=== PATIENT | female | born 1995 | race Caucasian/White ===

== ENCOUNTER 2023-10-01 15:54 | Emergency (ER) | payer OTHER, MEDICARE, SELFPAY ==
[2023-10-01 15:58] VITALS: BP 162/100; PULSE 100; RESP 20; TEMP 36.7; O2SAT 99; BMI 45.8
--- NOTE | 2023-10-01 16:14 | ED.GENADUL1 ---
HPI - General Adult General Chief complaint: Ear Stated complaint: pain left side of face Time Seen by Provider: 10/01/23 15:57 Source: patient Mode of arrival: walk-in Limitations: no limitations History of Present Illness HPI narrative: Patient is a 28-year-old female who is wheelchair-bound who presents to the emergency department for the evaluation of left-sided jaw pain for the last several days. Her PCP called in Keflex for her which she started today. They do not have a dentist locally. She denies any specific tooth being painful. She has had no appreciable swelling although she states her jaw is throbbing. She denies any injuries. She states the pain radiates into the left ear. No visual changes. No fevers or upper respiratory symptoms. She does have a history of her jaw clicking sometimes.She presents to the ER for pain control. She denies any concern for . Related Data Previous Rx's Medication Instructions Recorded hydrocodone 5 mg-acetaminophen 325 1 tab PO Q6H PRN pain 2 days #8 10/01/23 mg tablet tabs ketorolac 10 mg tablet 10 mg PO TID PRN pain #10 tabs 10/01/23 Allergies Allergy/AdvReac Type Severity Reaction Status Date / Time cetirizine [From Zyrtec] Allergy Intermediate Hives Verified 10/01/23 16:04 grass pollen Allergy Intermediate Verified 10/01/23 16:16 vancomycin Allergy Mild Verified 10/01/23 16:16 Review of Systems ROS Constitutional Denies: fever or chills Ears, nose, mouth, and throat Denies: throat pain or nasal congestion Cardiovascular Denies: chest pain Respiratory Denies: shortness of breath or cough Gastrointestinal Denies: nausea or vomiting Musculoskeletal Denies: back pain or neck pain Integumentary/Breast Denies: rash Neurological Denies: headache PFSH PFSH Social History Smoking status: Never smoker Exam Narrative Exam Narrative: Gen.: Awake, alert, in no distress Head: Normocephalic, atraumatic ENT: Moist mucous membranes, Bilateral TMs clear, teeth with no significant dental caries, no root exposures or broken teeth. No swelling noted of the face. Diffuse tenderness of the left mandible to the left TMJ joint.Clear speech. Airway widely open and patent. No redness or swelling under the tongue. No trismus or drooling. Respiratory: No respiratory distress Extremities: Moves extremities equally Psych: Normal mood and affect Neuro: No focal neuro deficit Skin: Warm, dry, intact Constitutional Vital Signs, click to edit/add: Last Vital Signs Temp 98.0 F 10/01/23 15:58 Pulse 100 H 10/01/23 15:58 Resp 10/01/23 15:58 BP 162/100 H 10/01/23 15:58 Pulse Ox 99 10/01/23 15:58 O2 Del Method Room Air 10/01/23 15:58 Course Vital Signs Vital signs: Vital Signs Temperature 98.0 F 10/01/23 15:58 Pulse Rate 100 H 10/01/23 15:58 Respiratory Rate 10/01/23 15:58 Blood Pressure 162/100 H 10/01/23 15:58 Pulse Oximetry 99 10/01/23 15:58 Oxygen Delivery Method Room Air 10/01/23 15:58 Temperature 98.0 F 10/01/23 15:58 Pulse Rate 100 H 10/01/23 15:58 Respiratory Rate 10/01/23 15:58 Blood Pressure 162/100 H 10/01/23 15:58 Pulse Oximetry 99 10/01/23 15:58 Oxygen Delivery Method Room Air 10/01/23 15:58 Medical Decision Making MDM Narrative Medical decision making narrative: Patient with a benign exam, she was instructed to finish the Keflex and she is given a short course of analgesics and NSAIDs. They are given a dental referral locally as indicated and follow-up with PCP. Return to the ER if symptoms change or worsen Medical Records Medical records reviewed: Yes I reviewed the patient's medical records Discharge Plan Discharge Chief Complaint: Ear Clinical Impression: Atypical face pain Patient Disposition: Home, Self-Care Time of Disposition Decision: 16:12 Condition: Good Prescriptions / Home Meds: New hydrocodone-acetaminophen 5-325 mg tablet 1 tab PO Q6H PRN (Reason: pain) 2 Days Qty: 8 0RF Rx Instructions: DX: N20.0 ketorolac 10 mg tablet 10 mg PO TID PRN (Reason: pain) Qty: 10 0RF Instructions: Atypical Facial Pain (ED) Stand Alone Forms: Portal Instructions Referrals: Philip Gomez DO [Primary Care Provider] - 1 week
[2023-10-01] MEDS: KETOROLAC TROMETHAMINE 10 MG TABLET PO (16:28)
== END 2023-10-01 16:33 | disposition home or self-care (01) ==
PROVIDERS: Emergency Provider Emergency Medicine Emergency Medical Services; PCP Family Medicine
DX: G50.1 Atypical facial pain (principal); Z99.3 Dependence on wheelchair
CPT/HCPCS: 99283

== ENCOUNTER 2024-11-30 13:57 | Emergency (ER) | payer OTHER, SELFPAY ==
[2024-11-30 14:09] VITALS: BP 127/98; PULSE 108; TEMP 37.1; O2SAT 97; BMI 46.6
[2024-11-30] MEDS: ONDANSETRON 4 MG RAPDIS TABLET SL (14:21)
--- NOTE | 2024-11-30 14:30 | ED.FEMALEGU1 ---
HPI - Female Genitourinary General Chief complaint: Urogenital-Female Stated complaint: NAUSEA, UTI COMPLAINTS Time Seen by Provider: 11/30/24 14:08 Source: patient Mode of arrival: walk-in Limitations: no limitations History of Present Illness HPI Narrative: Patient is a 29-year-old female presents to the ER with concerns of urinary tract infection and current treatment. Patient states she had surgery last Tuesday for a right knee arthroscopy she has a pertinent history of bladder stimulator and cerebral palsy. Patient notes that her knee is doing well but she is very concerned about having a bladder infection and that infection going to somewhere else in her body such as her knee. She denies any fevers or chills. States she has done well for several years with her bladder stimulator but states she had a urinary tract infection in [place] and then again here after returning home. She gave a sample on that was noted to have protein and blood but was drastically improved from her previous urinalysis done earlier in the month. She recently had another urinalysis performed with results on her cell phone from the [facility] through her urologist. Patient was concerned as there was a lot of abnormal findings. She actually has an appointment today at 3 PM virtually to discuss this. She has been placed on Bactrim and Pyridium for her symptoms a urine culture has not yet resulted as a urinalysis was obtained yesterday, but no culture yet reported. It was noted for yeast which was not previously noted on prior samples. She denies any fevers or chills she denies any back pain. She might report some mild nausea states she otherwise feels well but just nervous the possibility of an untreated urinary tract infection given her recent surgery. Vomiting. She has had her bladder stimulator for almost 3 years and is unsure why it does not seem to be working as well now as it did before. We discussed not taking too much Benadryl with Advil PM for sleep and maybe try melatonin as the Benadryl can have an effect on her bladder. elicited complaint: Reports UTI Related Data Home Medications ?Medication ?Instructions ?Recorded ?Confirmed phenazopyridine 200 mg tablet 200 mg PO TID 11/30/24 11/30/24 sulfamethoxazole 800 1 tab PO BID 11/30/24 11/30/24 mg-trimethoprim 160 mg tablet Previous Rx's ?Medication ?Instructions ?Recorded ketorolac 10 mg tablet 10 mg PO TID PRN pain #10 tabs 10/01/23 fluconazole 150 mg tablet 150 mg PO DAILY 1 dose #1 tab 11/30/24 ondansetron HCl 4 mg tablet 4 mg PO Q6H PRN nausea and 11/30/24 vomiting #12 tabs Allergies Allergy/AdvReac Type Severity Reaction Status Date / Time grass pollen Allergy Severe Hives Verified 11/30/24 14:07 vancomycin Allergy Severe Swelling Verified 11/30/24 14:07 of Lip/Tongue/Throat cetirizine (From [facility]) Allergy Intermediate Hives Verified 11/30/24 14:07 Review of Systems ROS Constitutional Denies: fever or chills Eyes Denies: change in vision Ears, nose, mouth, and throat Denies: throat pain or neck pain Cardiovascular Denies: chest pain or palpitations Respiratory Denies: shortness of breath or cough Gastrointestinal Reports: nausea; Denies: abdominal pain or vomiting Genitourinary Denies: painful urination, urinary frequency or urinary urgency Musculoskeletal Reports: other (Right knee without significant effusion or pain sutures present no erythema); Denies: back pain, neck pain or extremity pain Integumentary/Breast Denies: rash or itching Neurological Denies: headache or numbness in extremities Psychiatric Reports: anxiety Hematologic/Lymphatic Denies: easy bruising PFSH PFSH Social History Smoking status: Never smoker Little interest or pleasure in doing things: not at all Feeling down, depressed, or hopeless: not at all Exam Narrative Exam Narrative: Nurses notes and vital signs reviewed and patient is not hypoxic. General: The patient appears well and in no apparent distress, patient seated in motorized chair cerebral palsy. Skin: Warm, dry, no pallor noted. No evidence of rash portal scars right anterior knee well-healing no erythema discharge or drainage sutures present. Head: Normocephalic, atraumatic Neck: Supple, trachea mid-line, no tenderness, no lymphadenopathy Eye: Pupils are equal, round and reactive to light, EOMI Ears, Nose, Mouth, and Throat: External exam unremarkable Cardiovascular: Regular Rate and Rhythm Respiratory: Patient is in no distress, no accessory muscle use, lungs are clear to auscultation, no wheezing, rales or rhonchi. Chest Wall: no tenderness Back: non-tender, no CVA tenderness Musculoskeletal: Calf soft nontender limited motor function in the lower legs patient is able to stand usually with walking crutches or rollator but happens with motorized chair. GI: Normal bowel sounds, no tenderness to palpation, no masses appreciated. No rebound, guarding, or rigidity noted. Neurological: A&O x4 Psychiatric: Cooperative Constitutional Vital Signs, click to edit/add: Last Vital Signs Temp 98.7 F 11/30/24 14:09 Pulse 108 H 11/30/24 14:09 Resp 20 11/30/24 14:09 BP 127/98 H 11/30/24 14:09 Pulse Ox 97 11/30/24 14:09 O2 Del Method Room Air 11/30/24 14:09 Course Vital Signs Vital signs: Vital Signs Temperature 98.7 F 11/30/24 14:09 Pulse Rate 108 H 11/30/24 14:09 Respiratory Rate 20 11/30/24 14:09 Blood Pressure 127/98 H 11/30/24 14:09 Pulse Oximetry 97 11/30/24 14:09 Oxygen Delivery Method Room Air 11/30/24 14:09 Temperature 98.7 F 11/30/24 14:09 Pulse Rate 108 H 11/30/24 14:09 Respiratory Rate 20 11/30/24 14:09 Blood Pressure 127/98 H 11/30/24 14:09 Pulse Oximetry 97 11/30/24 14:09 Oxygen Delivery Method Room Air 11/30/24 14:09 MDM - Female Genitourinary MDM Narrative Medical decision making narrative: Patient and her mother eventually present at bedside with thorough discussion. She has urinalysis results on her phone from the [facility] showing increased white blood cells in her urine and positive nitrites there continues to be protein and gross blood. She has no CVA tenderness and vitals are stable she has been afebrile. She recently was started on Bactrim yesterday and Pyridium. We discussed that a urine culture through the [facility] should be pending and would likely guide further antibiotic treatment. Her urinalysis was also noted to have yeast and we discussed the need for Diflucan treatment she is given a prescription for 150 mg tablet which she will take after completion of antibiotic treatment. She will likely further discuss this with her urologist at 3 PM today we discussed the concern regarding continued blood in her urine samples and the need for potential further evaluation and the patient is concerned that her bladder stimulator is not working like it was previously. Patient notes she has full sensation in her back and has no CVA tenderness. She denies any vomiting but with Pyridium and Bactrim has noted some nausea she is given Zofran for her nausea symptoms. She is advised that if she starts vomiting or feels worse at any point she may return to the ER for reevaluation but at this time I feel she is early and a adequate outpatient treatment regimen with close follow-up to multiple specialists regarding her bladder health and care. Her postoperative knee appears well-healing with no signs of infection we discussed the incidence for sepsis and bacterial infection in the joint from bladder and she does not exhibit any clinical concerns regarding further evaluation at this time patient thankful for time spent at bedside and education. She will follow-up with her family doctor in [facility] urologist for ongoing treatment and management. cont pyridium and bactrim. The patient is to followup with primary care physician in next 2-3 days or to return to the emergency department should any of the signs or symptoms worsen or new symptoms develop. Patient had questions answered. The patient agrees with the following Diagnosis and Treatment plan and the patient will be discharged home. Medical Records Attestation: I reviewed the patient's medical records. Medical records narrative: bedside review of urinalysis: [facility] results on patient's MyChart today she was started on Bactrim yesterday Discharge Plan Discharge Chief Complaint: Urogenital-Female Clinical Impression: Urinary tract infection Patient Disposition: Home, Self-Care Time of Disposition Decision: 14:30 Condition: Good Prescriptions / Home Meds: New ondansetron HCl 4 mg tablet 4 mg PO Q6H PRN (Reason: nausea and vomiting) Qty: 12 0RF fluconazole 150 mg tablet 150 mg PO DAILY Qty: 1 1RF Rx Instructions: administer after finishing antiobiotics No Action ketorolac 10 mg tablet 10 mg PO TID PRN (Reason: pain) Qty: 10 0RF sulfamethoxazole-trimethoprim 800-160 mg tablet 1 tab PO BID phenazopyridine 200 mg tablet 200 mg PO TID Print Language: Greek Instructions: Urinary Tract Infection in Women (ED) Additional Instructions: Keep appt with Telehealth Urologist today Referrals: Philip Gomez DO [Primary Care Provider] - 1 week Discharge Date/Time: 11/30/24 14:39
== END 2024-11-30 14:39 | disposition home or self-care (01) ==
PROVIDERS: Emergency Provider Emergency Medicine; PCP Family Medicine
DX: N39.0 Urinary tract infection, site not specified (principal); Z87.440 Personal history of urinary (tract) infections; G80.9 Cerebral palsy, unspecified; Z98.890 Other specified postprocedural states; Z96.82 Presence of neurostimulator
CPT/HCPCS: 84703; 99283; Q0162

== ENCOUNTER 2024-12-07 15:26 | Emergency (ER) | payer OTHER, SELFPAY ==
[2024-12-07 15:34] VITALS: BP 127/92; PULSE 97; TEMP 36.9; O2SAT 97; BMI 46.6
[2024-12-07 17:05] LABS: HCG Qualitative Urine* NEGATIVE (NEGATIVE); Internal Control Within Normal Limits
[2024-12-07 17:08] LABS: Bilirubin Urine NEGATIVE (NEGATIVE); Blood Urine LARGE (NEGATIVE); Clarity Urine CLEAR (CLEAR); Color Urine LT. YELLOW (YELLOW); Glucose Urine UA NEGATIVE (NEGATIVE); Ketones Urine NEGATIVE (NEGATIVE); Leukocyte Esterase Urine TRACE (NEGATIVE); Nitrite Urine NEGATIVE (NEGATIVE); Protein Urine NEGATIVE (NEG/TRACE); Specific Gravity Urine 1.025 (1.005-1.025); Urobilinogen Urine 0.2 EU/dL (0.2-1.0)
[2024-12-07 17:16] LABS: RBC Urine 0-2 #/HPF (0-2)
[2024-12-07 17:17] LABS: Bacteria Urine SMALL #/HPF (NONE SEEN); Cast Seen? NONE SEEN #/LPF (NONE SEEN); Crystals Seen? None Seen #/HPF (None Seen); Mucus Urine SMALL (NONE SEEN); Squamous Epithelial Cell Urine RARE #/LPF (NONE/RARE); Urine Culture Indicated YES-FRMC
--- NOTE | 2024-12-07 17:41 | ED_ITS ---
HPI HPI - General Adult General Chief complaint: Urogenital-Female Stated complaint: BLOOD IN URINE Time Seen by Provider: 12/07/24 15:34 Source: patient Mode of arrival: Wheelchair History of Present Illness HPI narrative: Patient is a 29-year-old female presents to the ER with concerns of urinary tract infection and hematuria. she has a pertinent history of bladder stimulator and cerebral palsy. She denies any fevers or chills. States she has done well for several years with her bladder stimulator but states she had a urinary tract infection in [place] and then again here after returning home. She gave a sample on that was noted to have protein and blood but was drastically improved from her previous urinalysis done earlier in the month. She recently had another urinalysis performed with results on her cell phone from the [facility] through her urologist. Patient was concerned as there was a lot of abnormal findings. patient states she dropped off a urine specimen today at her pcp office but does not want to have an infection worsen over the weekend. She has been placed on Bactrim and Pyridium for her symptoms in the past. She denies any fevers or chills she denies any back pain. She might report some mild nausea states she otherwise feels well but just nervous the possibility of an untreated urinary tract infection given her recent surgery. Vomiting. She has had her bladder stimulator for almost 3 years and is unsure why it does not seem to be working as well now as it did before. patient is scheduled to have botox injections with urology in next week and does not want delayed for infection. Related Data Home Medications ?Medication ?Instructions ?Recorded ?Confirmed phenazopyridine 200 mg tablet 200 mg PO TID 11/30/24 0 11/30/24 sulfamethoxazole 800 1 tab PO BID 11/30/24 mg-trimethoprim 160 mg tablet Previous Rx's ?Medication ?Instructions ?Recorded ketorolac 10 mg tablet 10 mg PO TID PRN pain #10 ta bs 10/01/23 fluconazole 150 mg tablet 150 mg PO DAILY 1 dose #1 ta b 11/30/24 ondansetron HCl 4 mg tablet 4 mg PO Q6H PRN nausea and 11/30/24 vomiting #12 tabs cephalexin 500 mg capsule 500 mg PO BID 7 days #14 cap s 12/07/24 Allergies Allergy/AdvReac Type Severity Reaction Status Date / Time grass pollen Allergy Severe Hives Verified 11/30/24 14:07 vancomycin Allergy Severe Swelling Verified 11/30/24 14:07 of Lip/Tongue/Throat cetirizine (From [facility]) Allergy Intermediate Hives Verified 11/30/24 14:07 Review of Systems ROS Status of ROS 10 or more systems reviewed and unremark able except as noted in history and below PFS PFS Social History Smoking status: Never smoker Little interest or pleasure in doing things: not at all Feeling down, depressed, or hopeless: not at all Exam Narrative Exam Narrative: Exam Narrative Exam Narrative: Nurses notes and vital signs reviewed and patient is not hypoxic. General: The patient appears well and in no apparent distress, patient seated in motorized chair cerebral palsy. Skin: Warm, dry, no pallor noted. No evidence of rash portal scars right anterior knee well-healing no erythema discharge or drainage sutures present. Head: Normocephalic, atraumatic Neck: Supple, trachea mid-line, no tenderness, no lymphadenopathy Eye: Pupils are equal, round and reactive to light, EOMI Ears, Nose, Mouth, and Throat: External exam unremarkable Cardiovascular: Regular Rate and Rhythm Respiratory: Patient is in no distress, no accessory muscle use, lungs are clear to auscultation, no wheezing, rales or rhonchi. Chest Wall: no tenderness Back: non-tender, no CVA tenderness Musculoskeletal: Calf soft nontender limited motor function in the lower legs patient is able to stand usually with walking crutches or rollator but happens with motorized chair. GI: Normal bowel sounds, no tenderness to palpation, no masses appreciated. No rebound, guarding, or rigidity noted. Neurological: A&O x4 Psychiatric: Cooperative Constitutional Vital Signs, click to edit/add: Last Vital Signs Temp 98.4 F 12/07/24 15:34 Pulse 97 H 12/07/24 15:34 Resp 18 12/07/24 15:34 BP 127/92 H 12/07/24 15:34 Pulse Ox 97 12/07/24 15:34 O2 Del Method Room Air 12/07/24 15:34 Course Vital Signs Vital signs: Vital Signs Temperature 98.4 F 12/07/24 15:34 Pulse Rate 97 H 12/07/24 15:34 Respiratory Rate 18 12/07/24 15:34 Blood Pressure 127/92 H 12/07/24 15:34 Pulse Oximetry 97 12/07/24 15:34 Oxygen Delivery Method Room Air 12/07/24 15:34 Temperature 98.4 F 12/07/24 15:34 Pulse Rate 97 H 12/07/24 15:34 Respiratory Rate 18 12/07/24 15:34 Blood Pressure 127/92 H 12/07/24 15:34 Pulse Oximetry 97 12/07/24 15:34 Oxygen Delivery Method Room Air 12/07/24 15:34 Medical Decision Making MDM Narrative Medical decision making narrative: Patient is a 29-year-old female presents to the ER with concerns of urinary tract infection and hematuria. she has a pertinent history of bladder stimulator and cerebral palsy. She denies any fevers or chills. States she has done well for several years with her bladder stimulator but states she had a urinary tract infection in [place] and then again here after returning home. She gave a sample on that was noted to have protein and blood but was drastically improved from her previous urinalysis done earlier in the month. She recently had another urinalysis performed with results on her cell phone from the [facility] through her urologist. Patient was concerned as there was a lot of abnormal findings. patient states she dropped off a urine specimen today at her pcp office but does not want to have an infection worsen over the weekend. She has been placed on Bactrim and Pyridium for her symptoms in the past. She denies any fevers or chills she denies any back pain. She might r eport some mild nausea states she otherwise feels well but just nervous the possibility of an untreated urinary tract infection given her recent surgery. Vomiting. She has had her bladder stimulator for almost 3 years and is unsure why it does not seem to be working as well now as it did before. patient is scheduled to have botox injections with urology in next week and does not want delayed for infection. Patient obtained and showed moderate hematuria. Patient prophylactically placed on Keflex. Patient advised to follow-up with your urologist. She has had no pain no fevers no chills. Patient is to call and follow-up with them as she is scheduled to have Botox injections soon. Patient agrees with plan of care. Differential Diagnosis Differential Diagnosis: uti, hemauturia Medical Records Medical records reviewed: Yes I reviewed the patient's medical records Lab Data Lab results reviewed: Yes I reviewed the patient's lab results Labs: Lab Results 12/07/24 Range/Units 16:50 Urine Color Lt. yellow (YELLOW) Urine Clarity Clear (CLEAR) Urine pH 6.0 (5.0-9.0) Ur Specific [place] 1.025 (1.005-1.025) Urine Protein Negative (NEG/TRACE) mg/dL Urine Glucose (UA) Negative (NEGATIVE) mg/dL Urine Ketones Negative (NEGATIVE) mg/dL Urine Occult Blood Large A (NEGATIVE) Urine Nitrite Negative (NEGATIVE) Urine Bilirubin Negative (NEGATIVE) Urine Urobilinogen 0.2 (0.2-1.0) EU/dL Ur Leukocyte Esterase Trace A (NEGATIVE) Urine RBC 0-2 (0-2) #/HPF Urine WBC 2-5 A (NONE SEEN) #/HPF Ur Squamous Epith Cells Rare (NONE/RARE) #/LPF Urine Crystals None seen (None Seen) #/HPF Urine Bacteria Small A (NONE SEEN) #/HPF Urine Casts None seen (NONE SEEN) #/LPF Urine Mucus Small A (NONE SEEN) Ur Culture Indicated? Yes-[facility] [place] Urine HCG, Qual Negative (NEGATIVE) Discharge Plan Discharge Chief Complaint: Urogenital-Female Clinical Impression: Hematuria Patient Disposition: Home, Self-Care Time of Disposition Decision: 17:14 Condition: Good Prescriptions / Home Meds: New cephalexin 500 mg capsule 500 mg PO BID 7 Days Qty: 14 0RF No Action ketorolac 10 mg tablet 10 mg PO TID PRN (Reason: pain) Qty: 10 0RF sulfamethoxazole-trimethoprim 800-160 mg tablet 1 tab PO BID phenazopyridine 200 mg tablet 200 mg PO TID ondansetron HCl 4 mg tablet 4 mg PO Q6H PRN (Reason: nausea and vomiting) Qty: 12 0RF fluconazole 150 mg tablet 150 mg PO DAILY Qty: 1 1RF Rx Instructions: administer after finishing antiobiotics Print Language: Finnish Instructions: Hematuria (ED) Referrals: Philip Gomez DO [Primary Care Provider] - 1 week Discharge Date/Time: 12/07/24 17:24
== END 2024-12-07 17:24 | disposition home or self-care (01) ==
PROVIDERS: Physician Assistant; Emergency Provider Emergency Medicine; PCP Family Medicine
DX: R31.9 Hematuria, unspecified (principal); G80.9 Cerebral palsy, unspecified; Z87.440 Personal history of urinary (tract) infections; Z96.82 Presence of neurostimulator
CPT/HCPCS: 81001; 84703; 87086; 99283

== ENCOUNTER 2025-05-15 13:55 | Outpatient (OUT) | payer OTHER, SELFPAY ==
--- NOTE | 2025-05-15 14:03 | ECG_ITS ---
[facility] Test Date: 2025-05-15 Pat Name: CAREN TINSLEY Department: Room: - Gender: Female Button Inspector: : 1995 Requested By: [id number] Order Number: [id number] Reading MD: ANASTASIA GREENE M.D. Measurements Intervals [place] Rate: 109 P: 59 PA: 328 QRS: 50 QRSD: 77 T: 29 QT: 320 QTc: 431 Interpretive Statements NORMAL SINUS RHYTHM LOW QRS VOLTAGE IN PRECORDIAL LEADS [QRS DEFLECTION < 1.0 mV IN CHEST LEADS] ARTIFACT IN LEAD(S) ABNORMAL ECG No previous ECG available for comparison Electronically Signed On 05-15-2025 17:32:49 EDT by ANASTASIA GERENE M.D.
--- OUTSIDE RECORDS SUMMARY | 2025-05-15 14:09 | XMS_ITS | CCD ---
Author Organization [facility] Care Team Providers Care [facility] Machine Feeder Name Role Phone REFERRING, SELF Unavailable Unavailable NO, PHYSICIAN Unavailable Unavailable UNKNOWN, PROVIDER Admitting Unavailable UNKNOWN, PROVIDER Attending Unavailable UNKNOWN, PROVIDER Referring Unavailable AMILCAR BECKETT Primary Care Unavailable Mohamud Cueto Primary Care Provider SYSTEM, PROVIDER NOT IN Referring Unavaila ANN Georges Attending Unavailabl e MOHAMUD CUETO Primary Care Unavailable TERESO JACKSON Admitting Unavailable MOHAMUD CUETO Primary Care Unavailable DIONNE CHAMBERS Primary Care Physician [phone] Thaddeus Ibarra DO Hermilo Cajetan Unavailable Dionne Chambers DO Primary Care Provider [phone] Dionne Chambers Unavailable Dionne Chambers Unavailable Unavailable Unavailable Dionne Chambers Primary Care Unavailable Dr. Theron Quintero Attending Unavaila ble Dr. Theron Quintero Referring Unavaila amberly Travis Jr., DO Hermilo Cajetan Unavailable Dionne Chambers DO Primary Care Provider DO Dionne Chambers Primary Care Provider MD Dillan Craft Attending Provider DO Dionne Chambers Attending Provider Aixa Sánchez Referring Unavailable Aixa Sánchez Attending Unavailable Aixa Sánchez Admitting Unavailable Luca Botello Attending Unavailable Lue, Fatuma M. Attending Unavailable Lue, Fatuma M. Attending Unavailable Lue, Fatuma M. Attending Unavailable Lue, Fatuma M. Attending Unavailable Lue, Fatuma M. Attending Unavailable Lue, Fatuma M. Attending Unavailable Lue, Fatuma M. Attending Unavailable Lue, Fatuma M. Attending Unavailable Lue, Fatuma M. Admitting Unavailable Lue, Fatuma M. Referring Unavailable KUNS, DR PALACIOS Primary Care Unavailable KUNS, DR PALACIOS Attending Unavailable KUNS, DR PALACIOS Admitting Unavailable KUNS, DR PALACIOS Consulting Unavailable KUNS, DR PALACIOS Admitting Unavailable KUNS, DR PALACIOS Primary Care Unavailable LAZARO, STEVE Consulting Unavailable KUNS, DR PALACIOS Attending Unavailable KUNS, DR PALACIOS Consulting Unavailable KUNS, DR PALACIOS Attending Unavailable KUNS, DR PALACIOS Admitting Unavailable KUNS, DR PALACIOS Primary Care Unavailable KUNS, DR PALACIOS Consulting Unavailable KUNS, DR PALACIOS Primary Care Unavailable WEST, DR LEEANNA Williamson Attending Unavailable WEST, DR LEEANNA Williamson Admitting Unavailable WEST, DR LEEANNA Williamson Consulting Unavailable KUNS, DR ARIZMENDI Primary Care Unavailable WEST, DR LEEANNA Williamson Attending Unavailable WEST, DR LEEANNA Williamson Admitting Unavailable WEST, DR LEEANNA Williamson Consulting Unavailable KUNS, DR PALACIOS Primary Care Unavailable YAIMA ESPINOSA Attending Unavailable FRANCISCA, YAIMA Admitting Unavailable STEPMICHELLE, DR OCONNOR Consulting Unavailable MAGALY ELIZABETH Consulting Unavailable KUNS, DR ARIZMENDI Primary Care Unavailable FRANCISCA, YAIMA Attending Unavailable FRANCISCA, YAIMA Admitting Unavailable AHMED, WICHO Consulting Unavailable YAIMA ESPINOSA Consulting Unavailable KUNS, DR PALACIOS Attending Unavailable KUNS, DR PALACIOS Admitting Unavailable KUNS, DR PALACIOS Primary Care Unavailable KUNS, DR ARIZMENDI Primary Care Unavailable HOY, DR PHILLIPS Admitting Unavailable HOY, DR PHILLIPS Consulting Unavailable CORA, DR PHILLIPS Attending Unavailable WEST, DR LEEANNA Williamson Consulting Unavailable NADEREDelmi, DR HECTOR St Consulting Unavailable BLANCA SIMS Consulting Unavailable LEAENNA AVENDAÑO Consulting Unavailable Thaddeus Ibarra DO, George Cajetan Unavailable Dionne Chambers DO Primary Care Provider [phone] MD Mohamud Cueto Attending Unavailable MD Mohamud Cueto Primary Care Unavailable MD Mohamud Cueto Primary Care Unavailable MD Mohamud Cueto Attending Unavailable MD Mohamud Cueto Attending Unavailable MD Mohamud Cueto Primary Care Unavailable Patricia, Dionne Primary Care Provider CHARISMA Roger Attending Provider [phone] Patricia, DO Palacios Attending Provider [phone] MD Dillan Craft Attending Provider MD Dillan Craft Attending Provider Aixa Sánchez Attending Provider MD Dillan Craft Attending Provider Patricia, DO Palacios Primary Care Provider Thaddeus Ayers.DO George Cajetan Unavailable Thaddeus Ayers.DO Hermilo Cajetan Unavailable Patricia, DO Palacios Primary Care Provider Patricia, DO Palacios Attending Provider DO Hermilo Travis Jr Attending Provider Dionne Chambers DO P Primary Care Provider Dionne Chambers DO P Primary Care Provider Patricia, DO Dionne Primary Care Provider DO Dionne Chambers Attending Provider MD Sylvia Colbert Attending Provider Dionne Chambers MD Primary Care Provider Dionne Chambers MD Primary Care Provider [phone] Dionne Chambers DO P Primary Care Provider Dionne Chambers DO P Primary Care Provider Odette Escobedo PA-C Attending Provider [phone] DIONNE CHAMBERS Primary Care Unavailable STEPANIC HERMILO C Attending Unavailable STEPANIC, HERMILO C Admitting Unavailable Leeanna Simmons Unavailable STEPANIC HERMILO C Attending Unavailable STEPANIC, HERMILO C Admitting Unavailable GONSALOSDIONNE Primary Care Unavailable Kuniman YOUNG, Dionne Primary Care Provider Dionne Chambers DO Attending Provider [phone] Patsy Olmstead Attending Unavailable Patsy Olmstead Attending Unavailable No, PCP Primary Care Provider Unavailkoki Olmstead NP, Patsy Attending Provider [phone] Dionne Chambers DO Primary Care Provider Dionne Chambers DO Attending Provider Charu Martínez MD Attending Provider [phone] PARKER QUEEN Attending Unavailable JR. THADDEUS, HERMILO Garcia Referring Unavaila ble PARKER QUEEN Attending Unavailable STEPJR. MICHELLE, HERMILO Garcia Referring Unavaila ble SAURABHLEEANNA Attending Unavailable JR. THADDEUS, HERMILO Garcia Referring Unavaila ble JR. THADDEUS, HERMILO Garcia Attending Unavaila ble LEEANNA WILEY Attending Unavailable JR. THADDEUS, HERMILO Garcia Referring Unavaila ble LEEANNA WILEY Attending Unavailable STEPJR. MICHELLE, HERMILO Garcia Referring Unavaila ble SAURABHLEEANNA Attending Unavailable STEPANICJR., HERMILO Garcia Referring Unavaila ble SAURABHLEEANNA Attending Unavailable STEPJR. MICHELLE, HERMILO Garcia Referring Unavaila ble SAURABHLEEANNA Attending Unavailable STEPJR. MICHELLE, HERMILO Garcia Referring Unavaila ble SAURABHLEEANNA Attending Unavailable STEPJR. MICHELLE, HERMILO Garcia Referring Unavaila ble MARKIE SEGURA Attending Unavailable PARKER QUEEN Attending Unavailable JR. THADDEUS, HERMILO Garcia Referring Unavaila ble PARKER QUEEN Attending Unavailable STEPJR. MICHELLE, HERMILO Garcia Referring Unavaila ble PARKER QUEEN Attending Unavailable STEPANICJR., HERMILO Garcia Referring Unavaila ble MARKIE SEGURA Attending Unavailable MARKIE SEGURA Attending Unavailable STEPJR. MICHELLE, HERMILO Garcia Attending Unavaila ble LEEANNA WILEY Attending Unavailable JR. THADDEUS, HERMILO Garcia Referring Unavaila ble Dionne Chambers DO Primary Care Provider Dionne Chambers DO Attending Provider [phone] Valerie Kern LPN Attending Provider Unavailable DIONNE CHAMBERS Primary Care Unavailable DIAN WIGGINS Attending Unavailable DIAN WIGGINS Referring Unavailable DIONNE CHAMBERS Primary Care Unavailable AGGARWAL DESAI, LY Referring Unavailable TANYA, CHARU Attending Unavailable KUNS, DIONNE P Primary Care Unavailable FREDO NEMATOLLAHI, SYLVIA Referring Unavai lable KUNS, DIONNE P Primary Care Unavailable KUNS, DIONNE P Referring Unavailable DEUCE FARLEY Attending Unavailable KUNS, DIONNE P Primary Care Unavailable KUNS, DIONNE P Primary Care Unavailable AGGARWALLACHELLE DESAI LY Attending Unavailable TANYA, CHARU Attending Unavailable TANYA, CHARU Referring Unavailable KUNS, DIONNE P Primary Care Unavailable WARBEL, JOANA Referring Unavailable KUNS, DIONNE P Primary Care Unavailable KUNS, DIONNE P Primary Care Unavailable ALESSIA DESAI LY Admitting Unavailable DIAN WIGGINS Attending Unavailable ALEJANDRINA, JOANA Referring Unavailable JANI MONTANEZ Attending Unavail able KUNS, DIONNE P Primary Care Unavailable KUNS, DIONNE P Primary Care Unavailable FREDO NEMATOLLAHI, SYLVIA Attending GIOVANA Vick Referring Unavailable KUNS, DIONNE P Primary Care Unavailable OLGA PRYOR Attending Unavailable Kuns, Dionne Primary Care Unavailable Tanya, Charu Admitting Unavailable Tanya, Charu Attending Unavailable Kuns, Dionne Admitting Unavailable Kuns, Dionne Attending Unavailable Kuns, Dionne Primary Care Unavailable Kuns, Dionne Admitting Unavailable Kuns, Dionne Attending Unavailable Kuns, Dionne Primary Care Unavailable DaisytownOdette nesbitt L Admitting Unavailable FannyOdette L Attending Unavailable Kuns, Dionne Admitting Unavailable Kuns, Dionne Attending Unavailable Kuns, Dionne Primary Care Unavailable Kuns DO Dionne Primary Care Provider Allergies Allergy Classification Reported Allergen(s) Allergy Type Date of Onset Reaction(s) Facility [place] grass pollen extract (1 source) [place] grass pollen extract Drug Allergy 9 Unknown [facility] Cetirizine (1 source) Cetirizine Drug Allergy 3 Hives, Other: See Comments, Rash [facility] Glycopeptides (antibiotic) (1 source) Vancomycin Drug Allergy 9 Hives [facility] Penicillins (antibiotic) (1 source) Amoxicillin Drug Allergy 2 Diarrhea [facility] (3 sources) Cetirizine; Translations: [[facility]] Drug Allergy 3 [facility] Repository (20 sources) Amoxicillin; Translations: [amoxicillin] Drug Allergy 2 Diarrhea (finding), Diarrhea [facility] Other (20 sources) Cetirizine; Translations: [cetirizine] Drug Allergy 3 Weal (disorder), Hives, Other: See Comments, Rash, Itching [facility] Other (20 sources) [place] grass pollen extract; Translations: [GRASS POLLEN-BERMUDA, STANDARD] Drug Allergy 9 Unknown [facility] (20 sources) Vancomycin; Translations: [VANCOMYCIN] Drug Allergy 9 Unknown, Hives, Rash, Other [facility] (20 sources) Cetirizine Drug Allergy hives [facility] Other (1 source) Cetirizine; Translations: [Zyrtec TABS] Drug Allergy [facility] 250 DO Work Phone: (1 source) Vancomycin Drug Allergy 9 [facility] Repository (2 sources) Grass Pollen-[place], Standard Drug allergy (disorder) 9 [facility] Repository (1 source) No Known Medication Allergies; Translations: [No Known Medication Allergies] Propensity to adverse reactions to drug (disorder) [facility] Repository (1 source) Amoxicillin Drug Allergy 5 [facility] Repository (1 source) Cetirizine Drug Allergy 5 [facility] Repository (1 source) Vancomycin Drug Allergy [address] [place] [address] Repository Medications Current Medications Medication Drug Class(es) Dates Sig (Normalized) Sig (Original) acetaminophen 325 mg / HYDROcodone bitartrate 5 mg oral tablet (3 sources) Opioid Agonist Start: 11-22-2024 End: 11-30-2024 take 1 tablet by mouth every six hours for pain HYDROcodone-aceta minophen ([place]) 5-325 MG tablet Indications: Acute pain of right knee Take 1 tablet by mouth every 6 (six) hours if needed for severe pain for up to 7 days 28 tablet 11/23/2024 11/30/2024 Active Start: 04-03-2019 take 1 tablet by livier th every eight hours as needed for pain HYDROcodone-acetaminophen (NORCO) 5-325 mg per tablet Indications: Acute pyelonephritis Take 1 (one) tablet by mouth every 8 (eight) hours as needed for pain . 6 tablet 0 04/03/2019 Active [id number] 200 actuat albuterol 0.09 mg/actuat metered dose inhaler (18 sources) beta2-Adrenergic Agonist take 2 puff(s) by inhalation every four hours as needed ProAir HFA 108 (90 Base) MCG/ACT 2 puffs as needed Inhalation every 4 hrs Active ALPRAZolam 0.5 mg oral tablet (20 sources) Benzodiazepine Start: take 1 tablet by mouth every twelve hours as needed ALPRAZolam 0.5 MG 1 tablet Orally Q12H PRN Aug, Active azithromycin 250 mg oral tablet (4 sources) Macrolide Antimicrobial Start: Zithromax Z-Donato 250 MG 2 tablet on the first day, then 1 tablet daily for 4 days Orally Once a day for 5 day(s) Nov, Active celecoxib 200 mg oral capsule (5 sources) Nonsteroidal Anti-inflammatory Drug Start: 024 End: 025 take 1 capsule by mouth once daily celecoxib (CeleBREX) 200 MG capsule Indications: Acute pain of right knee Take 1 capsule (200 mg) by mouth Daily 30 capsule 1 08/03/2024 09/02/2024 Active cephalexin 500 mg oral capsule (1 source) Cephalosporin Antibacterial Start: 019 End: 019 take 1 capsule by mouth four times daily cephALEXin (KEFLEX) 500 MG capsule Take 1 (one) capsule (500 mg total) by mouth 4 (four) times a day for 10 days . 40 capsule 0 04/03/2019 04/13/2019 Active Compression stockings, 20-30mmHg, calf 20-30mmHg (6 sources) Start: 017 Compression stockings, 20-30mmHg, calf 20-30mmHg as directed externally daily as directed May, Active dexamethasone 1 mg/ml / tobramycin 3 mg/ml ophthalmic suspension (6 sources) Aminoglycoside Antibacterial, Corticosteroid Start: take 2-3 drop(s) into the eye(s) four times daily TobraDex 0.3-0.1 % 2-3 drop into affected eye Ophthalmic QID for 5 days Aug, Active doxycycline hyclate 100 mg oral capsule (2 sources) Tetracycline-class Drug Start: take 1 capsule by mouth every twelve hours Doxycycline Hyclate 100 MG 1 capsule Orally Twice a day for 7 day(s) May, Active fluticasone propionate 0.05 mg/actuat metered dose nasal spray (5 sources) Corticosteroid Start: take 1 spray(s) nasal route once daily Fluticasone Propionate 50 MCG/ACT 1 spray in each nostril Nasally Once a day for 30 day(s) May, Active Gemtesa 75 MG tablet (20 sources) take 1 tablet by mouth once daily Gemtesa 75 MG tablet Take 1 tablet by mouth Daily Active IUD (8 sources) Start: IUD Active VAGINAL December 17, 2024 12:00am Complies with drug therapy Start: 12-17-2024 Start: 12-17-2024 IUD Active VAG INAL December 17, 2024 12:00am lacosamide 100 mg oral tablet (4 sources) Anti-epileptic Agent Start: 05-06-2025 End: 05-13-2025 Lacosamide 100 mg tablet Active 100 MG PO As Directed May 13, 2025 2:33pm Complies with drug therapy levonorgestrel 0.683190 mg/hr intrauterine system (20 sources) Progestin, Progestin-containin g Intrauterine Device Start: 09-01-2023 End: 08-30-2028 Levonorgestrel 20 MCG/DAY intrauterine device 52 mg by Intrauterine route 09/01/2023 08/30/2028 Active 24 hr metFORMIN hydrochloride 500 mg extended release oral tablet (15 sources) Biguanide Start: 03-01-2025 End: 03-01-2025 take 1 tablet by mouth once daily at mealtime metFORMIN ER (GLUCOPHAGE XR) 500 mg 24 hr tablet Take 1 tablet by mouth daily with food. 03/01/2025 Active Start: 02-15-2025 End: 03-01-2025 take 1 tablet by mouth once daily Metformin 500 mg tablet Active 500 MG PO Daily February 18, 2025 12:00am Complies with drug therapy nitrofurantoin, macrocrystals 25 mg / nitrofurantoin, monohydrate 75 mg oral capsule (20 sources) Nitrofuran Antibacterial Start: 11-07-2024 take 1 capsule by mouth twice daily for urinary tract infection nitrofurantoin, macrocrystal-monohydrate, (Macrobid) 100 MG capsule TAKE 1 CAPSULE BY MOUTH 2 TIMES DAILY FOR URINARY TRACT INFECTION. 11/07/2024 Active Norelgestromin-Eth in.Estradiol (2 sources) Start: 10-11-2023 apply 1 dose transdermal route every week Norelgestromin-Ethin.Estrad iol Active PATCH TRANSDERML October 11, 2023 1:00am Free[employer]: as directed Transdermal Once a week; Note: Source Status: Taking; Provider: Patricia Palacios ( ) ondansetron 4 mg disintegrating oral tablet (2 sources) Serotonin-3 Receptor Antagonist Start: 04-03-2019 take 1 tablet by mouth every eight hours as needed ondansetron (ZOFRAN ODT) 4 MG disintegrating tablet Dissolve 1 (one) tablet (4 mg total) on top of tongue every 8 (eight) hours as needed for nausea . 9 tablet 0 04/03/2019 Active Start: 04-03-2019 End: 04-03-2019 ondansetron (ZOFRAN) injecti on 4 mg oxybutynin chloride 5 mg oral tablet (13 sources) Cholinergic Muscarinic Antagonist Start: 11-13-2020 take 1 tablet by mouth every twelve hours Oxybutynin Chloride 5 MG 1 tablet Orally Twice a day Nov, Active take 1 tablet by livier th every twenty-four hours Oxybutynin Chloride ER 10 MG 1 tablet Orally Once a day Active phenazopyridine hydrochloride 200 mg oral tablet (2 sources) Start: 11-29-2024 End: 12-04-2024 take 1 tablet by mouth every eight hours as needed phenazopyridine (PYRIDIUM) 200 mg tablet Take 1 tablet by mouth three times a day as needed for up to 5 days. 15 tablet 11/29/2024 12/04/2024 Active phentermine hydrochloride 37.5 mg oral tablet (14 sources) Sympathomimetic Amine Anorectic Start: 06-16-2021 take 1 tablet by mouth once daily phentermine 37.5 mg oral tablet 37.5 mg = 1 tab(s), Oral, Daily Start Date: 06/26/21 Status: Ordered predniSONE 10 mg oral tablet (6 sources) Start: 12-26-2023 End: 01-02-2024 take 6 tablets by mouth once daily, then take 5 tablets by mouth once daily, then take 4 tablets by mouth once daily, then take 3 tablets by mouth once daily, then take 2 tablets by mouth once daily, then take 1 tablet by mouth once daily predniSONE (DELTASONE) 10 mg tablet Take 6 tablets by mouth once daily for 3 days, THEN 5 tablets once daily for 1 day, THEN 4 tablets once daily for 1 day, THEN 3 tablets once daily for 1 day, THEN 2 tablets once daily for 1 day, THEN 1 tablet once daily for 1 day. 33 tablet 0 12/26/2023 01/02/2024 Active Start: 06-11-2021 take 1 tablet by livier th every twenty-four hours predniSONE 20 MG 1 tablet Orally Once a day for 5 day(s) Jun, Active tamsulosin hydrochloride 0.4 mg oral capsule (7 sources) alpha-Adrenergic Delia take 1 capsule by mouth every twenty-four hours Tamsulosin HCl 0.4 MG 1 capsule Orally Once a day Active Tirzepatide (Weight Loss) (20 sources) Start: Tirzepatide (Weight Loss) (Zepbound) 2.5 mg/0.5 mL pen injector Active 2.5 MG SUBCUT every week December 24, 2024 10:13am Complies with drug therapy Start: 12-24-2024 Start: 12-24-2024 Tirzepatide (W eight Loss) (Zepbound) 2.5 mg/0.5 mL pen injector Active 2.5 MG SUBCUT every week December 24, 2024 10:13am Start: 12-17-2024 End: 12-24-2024 Tirzepatide (Weight Loss) (Z epbound) 2.5 mg/0.5 mL pen injector Discontinued 2.5 MG SUBCUT every week December 17, 2024 12:00am December 24, 2024 10:13am Start: 12-17-2024 Tirzepatide (W eight Loss) (Zepbound) 2.5 mg/0.5 mL pen injector Active 2.5 MG SUBCUT every week 2 December 17, 2024 12:00am Start: 10-12-2023 End: 12-19-2023 Tirzepatide (Weight Loss) (Z epbound) 2.5 mg/0.5 mL pen injector Discontinued 2.5 MG SUBCUT every week 10 05October 12, 2023 1:00am December 19, 2023 1:41pm tirzepatide, weight loss (ZEPBOUND) 2.5 mg/0.5 mL pen injector (20 sources) Start: 01-23-2025 inject 2.5 mg by subcutaneous injection every week tirzepatide, weight loss (ZEPBOUND) 2.5 mg/0.5 mL pen injector Inject 2.5 mg subcutaneously one time a week. 01/23/2025 Active Start: 08-30-2024 End: 12-11-2024 inject 2.5 mg by subcutaneous injection every week tirzepatide, weight loss (ZEPBOUND) 2.5 mg/0.5 mL pen injector Indications: Damián's disease , Malaise and fatigue , Abnormal weight gain , BMI 45.0-49.9, adult (HCC) Inject 2.5 mg subcutaneously one time a week. 4 Each 2 08/30/2024 12/11/2024 Discontinued (Course of therapy completed) Start: 08-30-2024 inject 2.5 mg by sub cutaneous injection every week tirzepatide, weight loss (ZEPBOUND) 2.5 mg/0.5 mL pen injector Indications: Damián's disease , Malaise and fatigue , Abnormal weight gain , BMI 45.0-49.9, adult (HCC) Inject 2.5 mg subcutaneously one time a week. 4 Each 2 08/30/2024 Active triamcinolone acetonide 1 mg/ml topical cream (8 sources) Corticosteroid Start: 12-17-2024 Triamcinolone Acetonide 0.1 % cream Active APPLIC TOPICAL December 17, 2024 12:00am Complies with drug therapy Vitamin D3 125 MCG (5000 UT) (20 sources) Start: 11-27-2021 take 1 tablet by mouth once daily Vitamin D3 125 MCG (5000 UT) 1 tablet Orally Once a day Nov, Active Zepbound 7.5 MG/0.5ML solution auto-injector (20 sources) Start: 06-01-2024 inject 7.5 mg by subcutaneous injection every week Zepbound 7.5 MG/0.5ML solution auto-injector Inject 7.5 mg under the skin once a week 06/01/2024 Active Completed/Discontinued Medications Medication Drug Class(es) Dates Sig (Normalized) Sig (Original) amoxicillin 500 mg oral capsule (3 sources) Penicillin-class Antibacterial End: 09-10-2022 take 1 capsule by mouth three times daily amoxicillin (POLYMOX, AMOXIL) 500 mg capsule Take 500 mg by mouth three times daily. 09/10/2022 Discontinued (Discontinued by Patient) Comment on above: Take 500 mg by mouth three times daily. baclofen 20 mg oral tablet (3 sources) gamma-Aminobutyric Acid-ergic Agonist End: 09-10-2022 take 1 tablet by mouth three times daily baclofen (LIORESAL) 20 mg tablet Take 20 mg by mouth three times daily. 09/10/2022 Discontinued (Discontinued by Patient) Comment on above: Take 20 mg by mouth three times daily. cefTRIAXone 1000 mg injection (1 source) Cephalosporin Antibacterial Start: 04-03-2019 End: 04-03-2019 cefTRIAXone (ROCEPHIN) IVPB 1 g (premix) cholecalciferol 0.125 mg oral tablet (20 sources) Vitamin D Start: 10-11-2023 End: 10-12-2023 take 1 tablet by mouth once daily Cholecalciferol (Vitamin D3) 125 mcg (5,000 unit) tablet Discontinued 5000 UNIT PO Daily October 11, 2023 1:00am October 12, 2023 1:41pm FreeTextSi tablet Orally Once a day; Note: Source Status: Not-TakingPetey GARCIA; Provider: Patricia Drake Start: 11-27-2021 End: 06-10-2022 take 1 capsule by mouth once daily Cholecalciferol, Vitamin D3, 125 mcg (5,000 unit) cap TAKE 1 CAPSULE BY MOUTH EVERY DAY FOR 90 DAYS 0 11/27/2021 06/10/2022 Discontinued Start: 11-27-2021 take 1 tablet by livier every twenty-four hours Vitamin D3 125 MCG (5000 UT) 1 tablet Orally Once a day Nov, Not-Taking/PRN Comment on above: TAKE 1 CAPSULE BY [facility] EVERY DAY FOR 90 DAYS ciprofloxacin 500 mg oral tablet (3 sources) Quinolone Antimicrobial Start: End: take 1 tablet by mouth twice daily Ciprofloxacin Hcl 500 mg tablet Discontinued 500 MG PO Twice daily 05 12February 19, 2025 12:00am May 13, 2025 2:37pm 24 hr clarithromycin 500 mg extended release oral tablet (12 sources) Macrolide Antimicrobial Start: End: take 1 tablet by mouth once daily Clarithromycin 500 mg tablet extended release 24 hr Discontinued 500 MG PO Daily September 30, 2023 1:00am October 11, 2023 11:02am dexamethasone 1 mg oral tablet (10 sources) Corticosteroid Start: End: dexAMETHasone (DECADRON) 1 mg tablet Take one tab at 11 pm and labs next day at 8-9 am 1 tablet 0 12/14/2023 03/19/2024 Discontinued (Course of therapy completed) diphenhydrAMINE (20 sources) Histamine-1 Receptor Antagonist Start: End: diphenhydrAMINE (BENADRYL) injection 25 mg End: 12-20-2023 diphenhydramine HCl (BENADRY L ALLERGY ORAL) Take by mouth as needed. 12/20/2023 Discontinued End: 12-20-2023 diphenhydramine HCl (BENADRY L ALLERGY ORAL) Take by mouth as needed. 0 12/20/2023 Discontinued diphenhydramine HCl (BENADRYL ALLERGY ORAL) Take by mouth as needed. 0 Active Comment on above: Take by mouth as nee ded. docusate sodium 100 mg oral capsule (20 sources) Start: 10-11-2023 End: 12-17-2024 take 1 capsule by mouth once daily as needed Docusate Sodium 100 mg capsule Discontinued 100 MG PO Daily October 11, 2023 1:00am December 17, 2024 2:38pm FreeTextSi capsule as needed Orally Once a day; Note: Source Status: Taking; Provider: Patricia Palacios ( ) Start: 10-19-2021 Colace Refills (s) 0 Start Date: 10/19/21 Status: Ordered take 1 capsule by [facility] every twenty-four hours Colace 100 MG 1 capsule as needed Orally Once a day Active DULoxetine 60 mg delayed release oral capsule (20 sources) Serotonin and Norepinephrine Reuptake Inhibitor Start: 12-20-2023 End: 12-17-2024 take 1 capsule by mouth once daily Duloxetine 60 mg capsule,delayed release(DR/EC) Discontinued 60 MG PO Daily January 24, 2024 12:00am December 17, 2024 2:38pm Start: 12-20-2023 End: 03-19-2024 take 1 capsule by mouth once daily DULoxetine (CYMBALTA) 30 mg capsule Take 1 capsule by mouth once daily for 15 days. 15 capsule 0 12/20/2023 03/19/2024 Discontinued 168 hr ethinyl estradiol 0.26675 mg/hr / norelgestromin 0.89137 mg/hr transdermal system (11 sources) Progestin, Estrogen Start: 10-11-2023 End: 12-17-2024 Norelgestromin-Ethin.Estradi ol 150-35 mcg/24 hr patch weekly Discontinued PATCH TRANSDERML October 11, 2023 1:00am December 17, 2024 2:39pm FreeTextSig: as directed Transdermal Once a week; Note: Source Status: Taking; Provider: Patricia Palacios ( ) Xulane 150-35 MC G/24HR as directed Transdermal Once a week Active gabapentin 300 mg oral capsule (13 sources) Anti-epileptic Agent Start: 03-19-2024 End: 12-11-2024 take 1 capsule by mouth three times daily gabapentin (NEURONTIN) 300 mg capsule Take 1 capsule by mouth three times a day for 180 days. 90 capsule 5 03/19/2024 12/11/2024 Discontinued (Course of therapy completed) ibuprofen 800 mg oral tablet (11 sources) Nonsteroidal Anti-inflammatory Drug Start: 04-16-2020 take 1 tablet by mouth three times daily at mealtime as needed Ibuprofen 800 MG 1 tablet with food or milk as needed Orally Three times a day Apr, Not-Taking Start: 04-03-2019 End: 04-18-2019 take 1 tablet by mouth every six hours as needed ibuprofen (ADVIL,MOTRIN) 400 MG tablet Take 1 (one) tablet (400 mg total) by mouth every 6 (six) hours as needed for pain . 15 tablet 0 04/03/2019 04/18/2019 Active iv contrast (will be provided with radiology test) (1 source) Start: 12-20-2023 End: 12-21-2023 inject 1 dose intravenously once iv contrast (will be provided with radiology test) Indications: Trigeminal neuralgia MRI Brain Inject, intravenously, once for 1 dose.No IV access, insert saline lock prior to beginning of sedation, infusion, injection of imaging exam.Discontinue saline lock post exam. If Pt. has a central line or IVAD, may access for administration according to line specific nursing protocol.Once exam is complete flush line and de-access according to line specific nursing protocol in the MR contrast administration guidelines link 1 Each 0 12/20/2023 12/21/2023 ketorolac tromethamine 10 mg oral tablet (20 sources) Nonsteroidal Anti-inflammatory Drug, Cyclooxygenase Inhibitor Start: 06-14-2022 End: 12-20-2023 take 1 tablet by mouth every six hours as needed keTORolac (TORADOL) 10 mg tablet Indications: Neurogenic bladder , OAB (overactive bladder) , Postoperative pain Take 1 tablet by mouth every 6 hours as needed for up to 10 doses. 10 tablet 06/14/2022 12/20/2023 Discontinued (Other) Start: 04-03-2019 End: 04-03-2019 ketorolac (TORADOL) injectio n 15 mg Comment on above: Take 1 tablet by livier every 6 hours as needed for up to 10 doses. LORazepam 0.5 mg oral tablet (12 sources) Benzodiazepine Start: 2023 End: 2024 Lorazepam (Ativan) 0.5 mg tablet Discontinued 0.5 MG PO .COMPLEX as needed for anxiety 01 04October 04, 2023 1:00am December 17, 2024 2:39pm 0.5 mg orally May take 1 or 2 tablets the morning of the procedure. 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 PRN; methylPREDNISolone 4 mg oral tablet (12 sources) Corticosteroid Start: 2023 End: 2023 take 1 tablet by mouth once Methylprednisolone (Medrol (Donato)) 4 mg tablets,dose pack Discontinued 0 PO per package directions October 12, 2023 1:00am January 19, 2024 3:16pm PO PER PKG DIR 24 hr mirabegron 50 mg extended release oral tablet (20 sources) beta3-Adrenergic Agonist Start: 2023 End: 2024 take 1 tablet by mouth once daily mirabegron (MYRBETRIQ) 50 mg Tb24 Indications: OAB (overactive bladder) Take 1 tablet by mouth once daily. 90 tablet 3 10/21/2023 11/25/2023 Discontinued Start: 10-11-2023 End: 12-17-2024 take 1 tablet by mouth once daily Mirabegron (Myrbetriq) 25 mg tablet extended release 24 hr Discontinued 25 MG PO Daily October 11, 2023 1:00am December 17, 2024 2:39pm Start: 02-03-2023 End: 08-31-2023 take 1 tablet by mouth once daily mirabegron (MYRBETRIQ) 50 mg Tb24 Take 1 tablet by mouth once daily. 30 tablet 5 03/04/2023 08/31/2023 Active Comment on above: Take 1 tablet by livier once daily. Norelgestromin-Ethin.E stradiol 150-35 mcg/24 hr patch weekly (4 sources) Start: 10-11-2023 End: 12-17-2024 Norelgestromin-Ethin.Estra diol 150-35 mcg/24 hr patch weekly Discontinued PATCH TRANSDERML October 11, 2023 1:00am December 17, 2024 2:39pm FreeTextSig: as directed Transdermal Once a week; Note: Source Status: Taking; Provider: Patricia Palacios ( ) Start: 10-11-2023 Norelgestromin -Ethin.Estradiol 150-35 mcg/24 hr patch weekly Active PATCH TRANSDERML October 11, 2023 1:00am FreeTextSig: as directed Transdermal Once a week; Note: Source Status: Taking; Provider: Patricia Palacios ( ) solifenacin succinate 10 mg oral tablet (20 sources) Cholinergic Muscarinic Antagonist Start: 04-28-2022 End: 02-03-2024 take 1 tablet by mouth once daily solifenacin (VESICARE) 10 mg tablet Take 1 tablet by mouth once daily. 90 tablet 1 04/28/2022 09/16/2022 Discontinued Comment on above: Take 1 tablet by livier th once daily. sulfamethoxazole 800 mg / trimethoprim 160 mg oral tablet (9 sources) Dihydrofolate Reductase Inhibitor Antibacterial, Sulfonamide Antimicrobial Start: 05-08-2025 End: 05-13-2025 take 1 tablet by mouth twice daily Sulfamethoxazole- Trimethoprim (Bactrim Ds) 800-160 mg tablet Discontinued 1 TAB PO Twice daily 20 May 08, 2025 12:00am May 13, 2025 2:37pm Start: 11-29-2024 End: 12-04-2024 take 1 tablet by mouth twice daily sulfamethoxazole-trimethoprim (BACTRIM D S) 800-160 mg per tablet Take 1 tablet by mouth two times a day for 5 days. 10 tablet 11/29/2024 12/04/2024 Active Start: 06-28-2022 End: 07-01-2022 take 1 tablet by mouth twice daily sulfamethoxazole-trimethoprim (BACTRIM D S) 800-160 mg per tablet Take 1 tablet by mouth twice daily for 3 days. 6 tablet 0 06/28/2022 07/01/2022 Active Start: 06-14-2022 End: 06-19-2022 take 1 tablet by mouth twice daily sulfamethoxazole-trimethoprim (BACTRIM D S) 800-160 mg per tablet Indications: Neurogenic bladder , OAB (overactive bladder) Take 1 tablet by mouth twice daily for 5 days. 10 tablet 0 06/14/2022 06/19/2022 Active Start: 05-19-2021 take 1 tablet by livier th every twelve hours Bactrim DS 800-160 MG 1 tablet Orally Tw ice a day for 10 day(s) May, Active Comment on above: Take 1 tablet by livier th twice daily for 5 days. Take 1 tablet by livier th twice daily for 3 days. Tirzepatide (Weight Loss) (20 sources) Start: 03-07-2024 End: 12-17-2024 Tirzepatide (Weight Loss) (Zepbound) 5 mg/0.5 mL pen injector Discontinued 5 MG SUBCUT every week 6.5 90 March 07, 2024 3:52pm December 17, 2024 2:38pm Start: 03-07-2024 Tirzepatide (W eight Loss) (Zepbound) 5 mg/0.5 mL pen injector Active 5 MG SUBCUT every week 6.5 March 07, 2024 3:52pm Start: 12-19-2023 End: 03-07-2024 Tirzepatide (Weight Loss) (Z epbound) 5 mg/0.5 mL pen injector Discontinued 5 MG SUBCUT every week 6.5 December 19, 2023 3:23pm March 07, 2024 3:52pm Start: 12-19-2023 Tirzepatide (W eight Loss) (Zepbound) 5 mg/0.5 mL pen injector Active 5 MG SUBCUT every week 6.5 December 19, 2023 3:23pm Start: 12-19-2023 End: 12-19-2023 Tirzepatide (Weight Loss) (Z epbound) 5 mg/0.5 mL pen injector Discontinued 5 MG SUBCUT every week 6.5 December 19, 2023 12:00am December 19, 2023 3:24pm Tirzepatide (Weight Loss) (6 sources) Start: 02-05-2025 End: 05-13-2025 Tirzepatide (Weight Loss) 7. 5 mg/0.5 mL pen injector Discontinued 7.5 MG SUBCUT every week February 05, 2025 12:00am May 13, 2025 2:37pm Start: 02-05-2025 traZODone hydrochloride 50 mg oral tablet (20 sources) Serotonin Reuptake Inhibitor Start: 01-19-2024 End: 12-17-2024 take 1 tablet by mouth once daily at bedtime as needed Trazodone 50 mg tablet Discontinued 50 MG PO Daily at bedtime as needed for insomnia January 19, 2024 12:00am December 17, 2024 2:39pm Start: 10-24-2020 take 1 tablet by livier th every twenty-four hours traZODone HCl 50 MG 1 tablet at bedtime as needed Orally Once a day Oct, Not-Taking 24 hr trospium chloride 60 mg extended release oral capsule (20 sources) Cholinergic Muscarinic Antagonist Start: 10-19-2021 End: 04-28-2022 take 60 mg by mouth once daily Trospium (SANCTURA SR) 60 mg cp24 Take 60 mg by mouth once daily. 0 11/15/2021 04/28/2022 Discontinued (Discontinued by Patient) Comment on above: Take 60 mg by mouth once daily. vibegron (GEMTESA) 75 mg tablet (20 sources) Start: 09-07-2024 End: 12-11-2024 take 1 tablet by mouth once daily vibegron (GEMTESA) 75 mg tablet Indications: Urge incontinence Take 1 tablet by mouth once daily. 90 tablet 2 09/07/2024 12/11/2024 Discontinued (Course of therapy completed) Start: 09-07-2024 End: 03-06-2025 take 1 tablet by mouth once daily vibegron (GEMTESA) 75 mg tablet Indications: Urge incontinence Take 1 tablet by mouth once daily. 90 tablet 2 09/07/2024 03/06/2025 Active Start: 09-07-2024 End: 09-07-2024 take 1 tablet by mouth once daily vibegron (GEMTESA) 75 mg tablet Indications: Urge incontinence Take 1 tablet by mouth once daily. 30 tablet 5 09/07/2024 09/07/2024 Discontinued Start: 08-31-2024 End: 09-07-2024 take 1 tablet by mouth once daily vibegron (GEMTESA) 75 mg tablet Indications: Urge incontinence Take 1 tablet by mouth once daily. 30 tablet 5 08/31/2024 09/07/2024 Discontinued Start: 08-31-2024 End: 02-27-2025 take 1 tablet by mouth once daily vibegron (GEMTESA) 75 mg tablet Indications: Urge incontinence Take 1 tablet by mouth once daily. 30 tablet 5 08/31/2024 02/27/2025 Active Start: 11-25-2023 take 1 tablet by livier th once daily vibegron (GEMTESA) 75 mg tablet Indications: Urge incontinence Take 1 tablet by mouth once daily. 30 tablet 5 11/25/2023 Active Start: 11-25-2023 End: 05-23-2024 take 1 tablet by mouth once daily vibegron (GEMTESA) 75 mg tablet Indications: Urge incontinence Take 1 tablet by mouth once daily. 30 tablet 5 11/25/2023 05/23/2024 Active Comment on above: Take 1 tablet by livier th once daily. ZEPBOUND 2.5 mg/0.5 mL pen injector (20 sources) Start: End: inject 2.5 mg by subcutaneous injection every week ZEPBOUND 2.5 mg/0.5 mL pen injector INJECT 2.5 MG (0.5 ML) SUBCUTANEOUSLY WEEKLY FOR 4 WEEKS 11/28/2023 12/11/2024 Discontinued (Course of therapy completed) Start: 11-28-2023 inject 2.5 mg by sub cutaneous injection every week ZEPBOUND 2.5 mg/0.5 mL pen injector INJECT 2.5 MG (0.5 ML) SUBCUTANEOUSLY WEEKLY FOR 4 WEEKS 11/28/2023 Active Start: 11-28-2023 inject 2.5 mg by sub cutaneous injection every week ZEPBOUND 2.5 mg/0.5 mL pen injector INJECT 2.5 MG (0.5 ML) SUBCUTANEOUSLY WEEKLY FOR 4 WEEKS 0 11/28/2023 Active Problems Active Problems Problem Classification Problem Date Documented Da te Episodic/Chronic Abdominal pain (2 sources) Left lower quadrant pain; Translations: [Right upper quadrant pain] Episodic Allergic reactions (20 sources) Allergy to nut; Translations: [Allergy to other foods] Onset: 05-12-2021 Resolved: 05-12-2021 Episodic Anxiety disorders (20 sources) Anxiety; Translations: [Anxiety disorder, unspecified] Onset: 05-02-2025 Chronic Asthma (20 sources) Asthma; Translations: [Unspecified asthma, uncomplicated] Onset: 06-11-2022 06-25-2021 Chronic Calculus of urinary tract (2 sources) Renal colic; Translations: [Kidney stone] 01-09-2025 Episodic Cardiac dysrhythmias (14 sources) Postural orthostatic tachycardia syndrome ; Translations: [Other specified cardiac dysrhythmias] Onset: 11-16-2021 10-11-2023 Chronic Deficiency and other anemia (20 sources) Anemia; Translations: [Anemia, unspecified] 10-11-2023 Episodic Deficiency and other anemia (1 source) Anemia, unspecified Episodic Diabetes mellitus without complication (1 source) Hyperglycemia, unspecified Episodic Disorders of lipid metabolism (20 sources) Hyperlipidemia; Translations: [Hyperlipidemia, unspecified] Onset: 05-12-2021 Resolved: 04-13-2022 Chronic Epilepsy; convulsions (6 sources) Absence seizure; 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, not intractable, without status epilepticus] Onset: 05-02-2025 01-23-2025 Chronic Epilepsy; convulsions (2 sources) Neurological finding; Translations: [Unspecified convulsions] 02-25-2025 Episodic Essential hypertension (2 sources) Hypertensive disorder 06-26-2021 Chronic Genitourinary symptoms and ill-defined conditions (8 sources) Urge incontinence of urine; Translations: [Urge incontinence] Onset: 12-04-2024 11-25-2023 Chronic Genitourinary symptoms and ill-defined conditions (20 sources) Sensation as if bladder still full; Translations: [Feeling of incomplete bladder emptying] Onset: 11-05-2021 Episodic Headache; including migraine (4 sources) Headache; Translations: [Pain in face] 06-26-2021 Episodic Immunizations and screening for infectious disease (20 sources) Anti-nuclear factor positive; Translations: [Other specified abnormal immunological findings in serum] Onset: 01-07-2022 Resolved: 01-07-2022 Episodic Joint disorders and dislocations; trauma-related (6 sources) Derangement of right knee; Translations: [Unspecified internal derangement of right knee] Onset: 11-22-2024 08-05-2024 Chronic Malaise and fatigue (16 sources) Other fatigue; Translations: [Malaise and fatigue] Onset: 05-12-2021 Resolved: 05-12-2021 Episodic Medical examination/evaluation (2 sources) Encounter for general adult medical examination without abnormal findings; Translations: [Encounter for general adult medical examination without abnormal findings] Onset: 12-29-2017 Episodic Miscellaneous mental health disorders (12 sources) Anxiety about body function or health; Translations: [Other symptoms and signs involving emotional state] 10-04-2023 Episodic Neoplasms of unspecified nature or uncertain behavior (13 sources) Neoplasm of uncertain behavior of skin; Translations: [Neoplasm of uncertain behavior of skin] Episodic Nutritional deficiencies (20 sources) Vitamin D deficiency; Translations: [Vitamin D deficiency, unspecified] Onset: 11-16-2021 Resolved: 04-13-2022 Chronic Other acquired deformities (20 sources) Scoliosis deformity of spine; Translations: [Scoliosis, unspecified] 10-11-2023 Chronic Other circulatory disease (2 sources) Postural orthostatic tachycardia syndrome 06-25-2021 Episodic Other diseases of bladder and urethra (1 source) Detrusor overactivity; Translations: [Overactive bladder] Onset: 11-25-2021 Chronic Other diseases of bladder and urethra (20 sources) Overactive bladder; Translations: [Other specified disorders of bladder] Onset: 04-28-2022 07-01-2021 Chronic Other diseases of bladder and urethra (1 source) Other specified disorders of bladder Onset: 06-15-2021 Resolved: 06-15-2021 Chronic Other diseases of bladder and urethra (20 sources) Neurogenic bladder; Translations: [Neuromuscular dysfunction of bladder, unspecified] Onset: 04-28-2022 Chronic Other diseases of bladder and urethra (3 sources) Overactive bladder; Translations: [Overactive bladder] Onset: 04-28-2022 Chronic Other diseases of bladder and urethra (13 sources) Bladder irritability; Translations: [Other specified disorders of bladder] 10-11-2023 Chronic Other diseases of bladder and urethra (1 source) Neuromuscular dysfunction of bladder, unspecified; Translations: [Neurogenic bladder] Onset: 04-28-2022 Chronic Other diseases of veins and lymphatics (10 sources) Lymphedema; Translations: [Lymphedema, not elsewhere classified] 01-19-2024 Chronic Other ear and sense organ disorders (10 sources) Hearing loss; Translations: [Unspecified hearing loss, unspecified ear] 01-19-2024 Chronic Other ear and sense organ disorders (20 sources) Impacted cerumen of bilateral ears; Translations: [Impacted cerumen, bilateral] 01-19-2024 Episodic Other ear and sense organ disorders (18 sources) Ear sensations - finding; Translations: [Other specified disorders of ear, bilateral] Episodic Other ear and sense organ disorders (1 source) Impacted cerumen, bilateral Episodic Other ear and sense organ disorders (4 sources) Impacted cerumen; Translations: [Impacted cerumen, bilateral] 01-19-2024 Episodic Other endocrine disorders (1 source) Hypercortisolism; 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, unspecified] 12-14-2023 Chronic Other eye disorders (6 sources) Itching of right eye; Translations: [Other specified disorders of eye and adnexa] Episodic Other eye disorders (2 sources) Staring; Translations: [Transient alteration of awareness] 01-23-2025 Episodic Other gastrointestinal disorders (20 sources) Constipation; Translations: [Constipation, unspecified] 10-11-2023 Episodic Other gastrointestinal disorders (2 sources) Constipation, unspecified; Translations: [Constipation, unspecified] 12-17-2024 Episodic Other hereditary and degenerative nervous system conditions (16 sources) Hereditary spastic paraplegia; 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] 10-11-2023 Chronic Other hereditary and degenerative nervous system conditions (4 sources) Hereditary spastic paraplegia; 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] Onset: 05-02-2025 Chronic Other liver diseases (20 sources) Steatosis of liver; Translations: [Fatty (change of) liver, not elsewhere classified] Onset: 11-27-2021 06-11-2022 Chronic Other liver diseases (4 sources) Fatty (change of) liver, not elsewhere classified; Translations: [FATTY CHANGE LIVER NEC] Onset: 11-27-2021 Resolved: 04-13-2022 Chronic Other liver diseases (1 source) Abnormal levels of other serum enzymes Episodic Other lower respiratory disease (20 sources) Cough; Translations: [Cough] Episodic Other nervous system disorders (10 sources) Disorder of autonomic nervous system; Translations: [Disorder of the autonomic nervous system, unspecified] 01-19-2024 Chronic Other nervous system disorders (20 sources) Difficulty walking; Translations: [Difficulty in walking, not elsewhere classified] Onset: 12-05-2024 12-09-2024 Chronic Other nervous system disorders (20 sources) Abnormal gait; Translations: [Unspecified abnormalities of gait and mobility] 10-11-2023 Episodic Other nervous system disorders (12 sources) Facial neuralgia; Translations: [Other disorders of facial nerve] 10-12-2023 Episodic Other nervous system disorders (4 sources) Other disorders of facial nerve; Translations: [Other facial nerve disorders] 10-12-2023 Episodic Other nervous system disorders (2 sources) Trigeminal neuralgia; Translations: [Trigeminal neuralgia] 12-20-2023 Episodic Other nervous system disorders (1 source) Atypical facial pain; Translations: [Atypical facial pain] 03-19-2024 Episodic Other nervous system disorders (20 sources) Other acute postprocedural pain; Translations: [Pain in joint, lower leg] Onset: 12-05-2024 12-09-2024 Episodic Other non-traumatic joint disorders (20 sources) Pain in right knee; Translations: [Pain in joint, lower leg] Onset: 06-08-2021 Resolved: 01-07-2022 Episodic Other non-traumatic joint disorders (13 sources) Pain in unspecified knee; Translations: [Pain of joint of knee] Onset: 04-16-2022 Episodic Other nutritional; endocrine; and metabolic disorders (20 sources) Body mass index 30+ - obesity; Translations: [Body mass index (BMI) 39.0-39.9, adult] Chronic Other nutritional; endocrine; and metabolic disorders (3 sources) Body mass index (BMI) 39.0-39.9, adult Onset: 06-15-2021 Resolved: 06-29-2021 Chronic Other nutritional; endocrine; and metabolic disorders (20 sources) Severe obesity; Translations: [Morbid (severe) obesity due to excess calories] Onset: 06-11-2022 Chronic Other nutritional; endocrine; and metabolic disorders (1 source) Body mass index (BMI) 38.0-38.9, adult; Translations: [BODY MASS INDEX BMI 38.0-38.9 ADULT] Onset: 11-16-2021 Chronic Other nutritional; endocrine; and metabolic disorders (20 sources) Body mass index 40+ - severely obese; Translations: [Morbid (severe) obesity due to excess calories] Onset: 06-21-2022 06-21-2022 Chronic Other nutritional; endocrine; and metabolic disorders (20 sources) Obesity; Translations: [Obesity, unspecified] 10-11-2023 Chronic Other nutritional; endocrine; and metabolic disorders (2 sources) Body mass index (BMI) 45.0-49.9, adult; Translations: [BMI 45.0-49.9, adult ([facility])] Onset: 01-02-2025 Chronic Other nutritional; endocrine; and metabolic disorders (4 sources) Obesity, unspecified; Translations: [Obesity, unspecified] Chronic Other nutritional; endocrine; and metabolic disorders (6 sources) Morbid (severe) obesity due to excess calories; Translations: [Morbid obesity] 10-12-2023 Chronic Other nutritional; endocrine; and metabolic disorders (20 sources) Increased appetite; Translations: [Polyphagia] Episodic Other nutritional; endocrine; and metabolic disorders (2 sources) Polyphagia Onset: 01-07-2022 Resolved: 01-07-2022 Episodic Other nutritional; endocrine; and metabolic disorders (2 sources) Abnormal weight gain; Translations: [Abnormal weight gain] 08-30-2024 Episodic Other screening for suspected conditions (not mental disorders or infectious disease) (20 sources) Blood urea abnormal; Translations: [Abnormal finding of blood chemistry, unspecified] Episodic Other skin disorders (6 sources) Eruption; Translations: [Rash and other nonspecific skin eruption] Episodic Other skin disorders (8 sources) Multiple skin tags; Translations: [Other hypertrophic disorders of the skin] Episodic Other skin disorders (1 source) Other hypertrophic disorders of the skin Episodic Other upper respiratory disease (20 sources) Allergic rhinitis due to animal hair and dander; Translations: [Allergic rhinitis due to animal (cat) (dog) hair and dander] Chronic Other upper respiratory disease (20 sources) Seasonal allergic rhinitis; Translations: [Other seasonal allergic rhinitis] Chronic Other upper respiratory disease (12 sources) Seasonal allergy; Translations: [Other seasonal allergic rhinitis] 10-11-2023 Chronic Other upper respiratory disease (12 sources) Allergic rhinitis due to animal (cat) (dog) hair and dander; Translations: [Allergy to cats] 10-11-2023 Chronic Otitis media and related conditions (1 source) Other specified disorders of Eustachian tube, bilateral Episodic Paralysis (20 sources) Spastic diplegic cerebral palsy; 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] Onset: 01-24-2017 Resolved: 06-15-2021 Chronic Residual codes; unclassified (1 source) Dependence on wheelchair; Translations: [DEPENDENCE ON WHEELCHAIR] Onset: 08-18-2018 Chronic Residual codes; unclassified (20 sources) Difficulty sleeping ; Translations: [Sleep disorder, unspecified] 10-11-2023 Episodic Residual codes; unclassified (4 sources) Procedure and treatment not carried out due to patient leaving prior to being seen by health care provider; Translations: [PROC AND TX NOT CARRIED OUT PT LEAVE] Onset: 04-16-2022 Episodic Residual codes; unclassified (1 source) Sleep disorder, unspecified Episodic Residual codes; unclassified (1 source) Reduced libido; Translations: [Decreased libido] 01-26-2024 Episodic Residual codes; unclassified (4 sources) History of arthroscopy of knee joint; Translations: [Other specified postprocedural states] 12-07-2024 Episodic Residual codes; unclassified (11 sources) Insomnia; Translations: [Insomnia, unspecified] 12-17-2024 Episodic Residual codes; unclassified (2 sources) Insomnia, unspecified; Translations: [Insomnia, unspecified] 12-17-2024 Episodic Thyroid disorders (20 sources) Hypothyroidism; Translations: [Hypothyroidism, unspecified] Onset: 05-12-2021 Resolved: 05-12-2021 Chronic Tuberculosis (20 sources) Tuberculosis of vertebral column; Translations: [Tuberculosis of spine] Episodic Unclassified (2 sources) SEATING CLINIC Onset: 08-18-2018 Unclassified (2 sources) Finding of sensation of bladder 06-26-2021 Unclassified (4 sources) COUGH, UNSPECIFIED; Translations: [COUGH, UNSPECIFIED] Onset: 01-21-2022 Unclassified (1 source) CONTACT W/AND (SUSP) EXPOS COVID-19; Translations: [CONTACT W/AND (SUSP) EXPOS COVID-19] Onset: 11-16-2021 Unclassified (1 source) Obesity, Class III, BMI 40-49.9 (morbid obesity); Translations: [Obesity, Class III, BMI 40-49.9 (morbid obesity)] Onset: 06-21-2022 Urinary tract infections (20 sources) Acute pyelonephritis; Translations: [Acute cystitis] Onset: 05-12-2021 Resolved: 05-15-2021 Episodic Past or Other Problems Problem Classification Problem Date Documented Date Episodic/Chronic Bacterial infection; unspecified site (4 sources) Bacteremia; Translations: [Klebsiella pneumoniae [K. pneumoniae] as the cause of diseases classified elsewhere] Onset: 11-09-2021 Episodic Cardiac dysrhythmias (1 source) Tachycardia, unspecified; Translations: [Tachycardia R00.0] Onset: 05-12-2021 Resolved: 05-12-2021 Episodic Deficiency and other anemia (1 source) Iron deficiency anemia, unspecified; Translations: [IRON DEFICIENCY ANEMIA UNSPECIFIED] Onset: 11-16-2021 Episodic Fluid and electrolyte disorders (1 source) Dehydration; Translations: [DEHYDRATION] Onset: 11-09-2021 Episodic Joint disorders and dislocations; trauma-related (1 source) Other tear of lateral meniscus, current injury, right knee, initial encounter Onset: 06-29-2021 Resolved: 06-29-2021 Episodic Nausea and vomiting (17 sources) Postoperative nausea and vomiting; Translations: [Nausea with vomiting, unspecified] Onset: 12-11-2024 12-11-2024 Episodic Other aftercare (1 source) Other senior living (current) drug therapy; Translations: [OTH BILLING ADMINISTRATOR CURRENT DRUG THERAPY] Onset: 11-16-2021 Episodic Other eye disorders (1 source) Other specified disorders of eye and adnexa Onset: 09-07-2021 Resolved: 09-07-2021 Episodic Other non-traumatic joint disorders (1 source) Pain in right wrist; Translations: [Wrist pain, right M25.531] Onset: 05-12-2021 Resolved: 05-12-2021 Episodic Other non-traumatic joint disorders (1 source) Effusion, unspecified knee Onset: 06-29-2021 Resolved: 06-29-2021 Episodic Other non-traumatic joint disorders (1 source) Pain in unspecified joint; Translations: [PAIN IN UNSPECIFIED JOINT] Onset: 11-27-2021 Episodic Other nutritional; endocrine; and metabolic disorders (1 source) Abnormal weight gain; Translations: [Abnormal weight gain] Onset: 01-02-2025 Episodic Other skin disorders (1 source) Rash and other nonspecific skin eruption Onset: 09-07-2021 Resolved: 09-07-2021 Episodic Residual codes; unclassified (4 sources) Other specified postprocedural states; Translations: [Other postprocedural status] Onset: 04-13-2022 Resolved: 04-13-2022 Episodic Residual codes; unclassified (1 source) Transient alteration of awareness; Translations: [Staring episodes] Onset: 01-23-2025 Episodic Septicemia (except in labor) (4 sources) Sepsis, unspecified organism; Translations: [SEPSIS UNSPECIFIED ORGANISM] Onset: 11-26-2021 Episodic Unclassified (2 sources) Cough R05.9 Onset: 01-07-2022 Resolved: 01-12-2022 Unclassified (1 source) Never smoked tobacco; Translations: [Never a smoker] Unclassified (1 source) COUGH, UNSPECIFIED; Translations: [COUGH, UNSPECIFIED] Onset: 01-19-2022 Varicose veins of lower extremity (4 sources) Varicose veins of bilateral lower extremities with pain; Translations: [VARICOSE VNS JOEY LOW EXTREM W/PAIN] Onset: 02-10-2022 Episodic Viral infection (2 sources) Disease caused by 2019-nCoV; Translations: [COVID-19] Results Test Name Value Interpretation Reference Range Facility Laboratory - Chemistry and C hemistry - challengeOrdered By: Dionne Chambers on 05-07-2025 Bilirubin Ql (U) Negative [facility] Glucose (U) [Mass/Vol] Negative [facility] Ketones Ql (U) Negative [facility] pH (U) 5.5 [pH] [facility] Specific gravity (U) [Rel density] 1.025 [facility] Urobilinogen (U) [Mass/Vol] 0.2 mg/dL [facility] Laboratory - UrinalysisOrder ed By: Dionne Chambers on 05-07-2025 Leukocyte esterase Test strip Ql (U) small [facility] Nitrite Ql (U) Negative [facility] Protein Ql (U) Negative [facility] No Panel InformationOrdered By: Dionne Chambers on 05-07-2025 Urine Occult Blood [facility] Urine Cultureon 05-07-2025 Bacteria identified Cx Nom (U) 20,000 colonies/ml mixed bacterial skin contaminants including mixed gram negative bacilli - 2 Days PERFORMED BY: [facility] [address] [place] [address] PATHOLOGIST MAINTENANCE SUPERVISOR PEREZ SHETH M.D. Normal [facility] Comment on above: Performed By: #### T 4F, CMP, TSH3 #### [address] Urine cultureOrdered By: Oneal Chambers on 05-07-2025 Bacteria identified Cx Nom (U) bacilli - 2 Days [facility] CNOVon 05-02-2025 CNOV Office Visit (NE50MN ) -------- VIJAYA TINSLEY ([id number]) 1995 F Date Time Provider Department 05/02/25 1:20 PM AJNI MONTANEZ NE50MN During your visit today, we recorded the following information about you: Pulse Blood pressure Weight Height 89/minute 136/85 115.7 kg 1.575 m Jani Montanez MD 05/02/2025 4:51 PM Signed [facility] Patient Name: Vijaya Tinsley [place]houn Date of : 1995 Referring Provider: Joana Grossman [address] [facility] [address] INITIAL EPILEPSY CLINIC NOTE 05/02/2025 1:20 PM CHIEF COMPLAINT: New Patient and Epilepsy HISTORY OF PRESENT ILLNESS Ms. 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 Per brief review of the information available in the EMR: Initially established with [facility] 12/2023 with the [facility] for recurrent episodes of left sided facial pain. She was diagnosed with chronic tension headache and additional work up was performed to evaluate etiology of the facial pain. MRI/MRA of the brain were unremarkable. She was subsequently diagnosed with trigeminal neuralgia (?unclear if here or with an OSH). She has since followed up with Deuce Farley CNP in the headache center for management of this pain. Patient most recently seen 01/23/25 via VV. At this appointment, she reported three episodes of transient speech loss, with the first occurring in 2023. These were reported as sudden inability to speak lasting 2-3 minutes. She reported zoning out with inability to recall what occurred during the episode. No clear triggers or other associated symptoms. She was referred to epilepsy for additional evaluation. Today, she reports the following: She reports two types of episodes (see below). She has had three of the longer episodes. She will be talking to someone but will suddenly be unable to continue talking. She can recall that someone is talking to her, but she cannot recall what specifically happened. The first one was at least 2 years ago; she cannot recall exactly when. The most recent of this type of episode was about 1-2 years ago. There are no clear triggers. She does feel that it tends to occur when she is over-processing something. She additionally reports mini episodes , that she almost feels are mini-versions of the longer episodes. She is uncertain exactly when they started; probably sometime in her early 20s. She notices that they are very short. She will be thinking of something and suddenly she will not know what she was thinking about or why. These are happening at least weekly. No other associated symptoms. She called her dad, who had witnessed some of the mini episodes. He described that she would be sitting there and talking and she suddenly stops and forgets what she wants to say. He does not notice staring so much. These last only seconds. He has seen this a couple of times. Has not witnessed any abnormal movements or GTC. No episodes of loss of consciousness. No episodes of uncontrollable movements. No jerks. Has never been on a seizure medication. She thinks she may have had an EEG once before but she cannot remember why it was done or what it showed. Denies history of GTC. EPISODE TYPES Type 1: Longer Episode - Onset: Uncertain, at least 2022 if not earlier - Aura: No warning - Description: She will be talking to someone but will suddenly be unable to continue talking. She can recall that someone is talking to her, but she cannot recall what specifically happened. - Duration: Uncertain- feels like minutes but may only be seconds - Post- Ictal: Immediately back to baseline. - Frequency: Three total known, last ~1-2 years and first at least 2 years ago Type 2: Mini Episodes - Onset: Uncertain- early 20s - Aura: No warning - Description: She will be thinking of something and suddenly she will not know what she was thinking about or why. Dad described that she would be sitting there and talking and she suddenly stops and forgets what she wants to say. He does not notice staring. - Duration: Seconds - Post- Ictal: Immediately back to baseline - Frequency: At least weekly. Triggers: None identified Seizure Risk Factors - Complications: No - Developmental Delay: Dad reports some slow development, particularly with walking due (more content not included)... [facility]NPNon 02-26-2025 [facility] ([facility] -------- VIJAYA TINSLEY ([id number]) 1995 F Date Time Provider Department 02/26/25 DIAN WIGGINS During your visit today, we recorded the following information about you: Jenna Valle 02/26/2025 1:53 PM Signed Pt call to schedule uro dynamic test and botox. She can not get it done until apr in [place] so wants to schedule here. Craig Lakhani, JOSE 02/26/2025 3:57 PM Signed DIANA 02/25/25 Katie Warren 02/27/2025 1:39 PM Signed 02/27 - left detailed vm but some parts cut off Allergies As of Date: 02/26/2025 Noted Allergy Reaction GRASS POLLEN-BERMUDA, STANDARD 08/08/2008 16 - Unknown AMOXICILLIN 01/15/2022 6 - Diarrhea VANCOMYCIN 06/30/2019 4 - Hives Comments: Burning sensation CETIRIZINE 03/16/2013 4 - Hives 14 - Other: See Comments 2 - Rash Comments: hives Date Reviewed: 01/23/2025 Reviewed by: Deuce Farley, BUSINESS UNIT CONTROLLER.HR RECRUITER - Fully Assessed Reason for Visit: Appointment [186] Prescriptions as of 04/16/2025 - metFORMIN ER (GLUCOPHAGE XR) 500 mg 24 hr tablet Take 1 tablet by mouth daily with food. - tirzepatide, weight loss (ZEPBOUND) 2.5 mg/0.5 mL pen injector Inject 2.5 mg subcutaneously one time a week. 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] 01/24/2017 Fatty (change of) liver, not elsewhere classifi*11/27/2021 Class 3 severe obesity in adult (HCC) [E66.813] 06/11/2022 Obesity, Class III, BMI >= 40 [E66.813] 06/21/2022 Moderate protein-calorie malnutrition (HCC) [E4*02/03/2023 PONV (postoperative nausea and vomiting) [R11.2*12/11/2024 Encounter Status:Closed by JENNA VALLE on 04/16/25 [facility] Telephone ([facility]) -------- VIJAYA TINSLEY ([id number]) 1995 F Date Time Provider Department 02/26/25 CHARU MARTÍNEZ During your visit today, we recorded the following information about you: Jose Guadalupe Johnson 02/26/2025 3:08 PM Signed Metformin is making patient sick .Whould like a different kind of med. If possible. Patient has been identified by name and date of : No Patient phoned to request the following new prescription(s) If there are any questions regarding this prescription request, call on cell at: [phone] (home) [phone] (cell) RX INSTRUCTIONS: Patient aware RX will be sent to pharmacy. No need to notify patient. Requested Prescriptions No prescriptions requested or ordered in this encounter Prescriptions are usually addressed within 24-48 business hours. If patient states they cannot wait 24-48 business hours, please document details. Last 2 Encounter Wt Readings: Date: Wt: 12/11/2024 115.7 kg (255 lb) 12/04/2024 115.7 kg (255 lb 1.2 oz) Last 2 Encounter BP Readings: Date: BP: 12/19/2024 122/58 12/11/2024 132/85 No results found for: TSH No results found for: HBA1C Jose Guadalupe Johnson Metformin is making patient sick .Whould like a different kind of med. If pos Jesse Barajas 02/28/2025 2:38 PM Signed Vijaya called back in. Scheduled a virtual appointment for tomorrow with Dr Martínez at 3:20 pm. Jesse Barajas Allergies As of Date: 02/26/2025 Noted Allergy Reaction GRASS POLLEN-BERMUDA, STANDARD 08/08/2008 16 - Unknown AMOXICILLIN 01/15/2022 6 - Diarrhea VANCOMYCIN 06/30/2019 4 - Hives Comments: Burning sensation CETIRIZINE 03/16/2013 4 - Hives 14 - Other: See Comments 2 - Rash Comments: hives Date Reviewed: 01/23/2025 Reviewed by: Deuce Farley APRN.HR RECRUITER - Fully Assessed Reason for Visit: Patient Question [7787] Orders [681] Symptoms [3640] Appointment [186] Prescriptions as of 02/28/2025 - metFORMIN (GLUCOPHAGE) 500 mg tablet Take 1 tablet by mouth daily with food. - tirzepatide, weight loss (ZEPBOUND) 2.5 mg/0.5 mL pen injector Inject 2.5 mg subcutaneously one time a week. 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] 01/24/2017 Fatty (change of) liver, not elsewhere classifi*11/27/2021 Class 3 severe obesity in adult (HCC) [E66.813] 06/11/2022 Obesity, Class III, BMI >= 40 [E66.813] 06/21/2022 Moderate protein-calorie malnutrition (HCC) [E4*02/03/2023 PONV (postoperative nausea and vomiting) [R11.2*12/11/2024 Encounter Status:Closed by JESSE BARAJAS on 02/28/25 [facility] CNCONon 02-25-2025 CNCON Consults (NE50MN) -------- VIJAYA TINSLEY ([id number]) 1995 F Date Time Provider Department 02/25/25 EUGENIA WOODS NE50MN During your visit today, we recorded the following information about you: Joana Grossman APRN.CHARLIE 02/25/2025 4:45 PM Signed [facility] Review of Records Patient: Vijaya Tinsley Address: [address] [place] [id number] Impression: Review of records for Vijaya Tinsley, a 29 year old female, being referred by Deuce Reno CNP [[facility]] to Any Epileptologist for further evaluation and treatment/second opinion. Patient has previously diagnosed seizure like activity. EEG has not been reported. MRI from 2023 reported no abnormalities. Patient has trialed 0 AEDs. VEEG may be indicated for event characterization and diagnostic evaluation to determine best treatment options. As she is reporting 4 total episodes since onset, and has not yet had an EEG, would start with a long EEG and consultation with an Epileptologist -- Summary: Onset: [id number] Recent Seizure Frequency: 4 total episodes, occur every few months Seizure Description(s) Available: Type A: No warning, loses ability to talk, unaware of what is happening, conscious, stares Duration: 1-2 minutes Current AED(s): None Previous AED(s): None PMH: diplegic cerebral palsy, spasticity, headaches, asthma, urge incontinence s/p bladder stimulator, overactive bladder, POTS, PRIOR EVALUATIONS: [facility] [address] [place] [address] EEG (-): MRI brain wo/w contrast (01/05/2024): No acute intracranial findings. No pathologic enhancement or morphologic distortion of either trigeminal nerve. No evidence of arterial impingement on the trigeminal nerves. Patent intracranial vasculature. No aneurysm is identified. -- JESSIE Recommendations: - Long EEG, consultation with an Epileptologist - Additional testing to be considered by epilepsy clinicians Signed: Joana Grossman APRN.CNP February 25, [address] Woods for review and recommendations. - MD Recommendations (as discussed with Dr. Woods): - Please proceed with the above plan. Allergies As of Date: 02/25/2025 Noted Allergy Reaction GRASS POLLEN-BERMUDA, STANDARD 08/08/2008 16 - Unknown AMOXICILLIN 01/15/2022 6 - Diarrhea VANCOMYCIN 06/30/2019 4 - Hives Comments: Burning sensation CETIRIZINE 03/16/2013 4 - Hives 14 - Other: See Comments 2 - Rash Comments: hives Date Reviewed: 01/23/2025 Reviewed by: Deuce Farley APRN.CNP - Fully Assessed Primary Visit Diagnosis:Seizure-like activity (HCC) [R56.9] Order(s):EPIL EEG LONG [[id number]] Order #: [id number]: 1 Prescriptions as of 02/25/2025 - metFORMIN (GLUCOPHAGE) 500 mg tablet Take 1 tablet by mouth daily with food. - tirzepatide, weight loss (ZEPBOUND) 2.5 mg/0.5 mL pen injector Inject 2.5 mg subcutaneously one time a week. 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] 01/24/2017 Fatty (change of) liver, not elsewhere classifi*11/27/2021 Class 3 severe obesity in adult (HCC) [E66.813] 06/11/2022 Obesity, Class III, BMI >= 40 [E66.813] 06/21/2022 Moderate protein-calorie malnutrition (HCC) [E4*02/03/2023 PONV (postoperative nausea and vomiting) [R11.2*12/11/2024 Encounter Status:Closed by JOANA GROSSMAN on 02/25/25 [facility] Laboratory - Chemistry and C hemistry - challengeOrdered By: Dionne Chambers on 02-18-2025 Bilirubin Ql (U) Negative [facility] Glucose (U) [Mass/Vol] Negative [facility] Ketones Ql (U) Negative [facility] pH (U) 6.0 [pH] [facility] Specific gravity (U) [Rel density] 1.020 [facility] Urobilinogen (U) [Mass/Vol] 0.2 mg/dL [facility] Laboratory - UrinalysisOrder ed By: Dionne Chambers on 02-18-2025 Leukocyte esterase Test strip Ql (U) Small [facility] Nitrite Ql (U) Negative [facility] Protein Ql (U) Negative [facility] No Panel InformationOrdered By: Dionne Chambers on 02-18-2025 Urine Occult Blood Trace-intact [facility] Urine Cultureon 02-18-2025 Bacteria identified Cx Nom (U) ORGANISM: Escherichia coli (O:ESCCOL) [place] Count 40,000 ORGANISM: Proteus mirabilis (O:PROMIR) [place] Count 10,000 Aerobic GINA Charge (NMIC56) - SUSCEPTIBILITY ORGANISM: O:ESCCOL ANTIBIOTIC INTERPRETATION GINA Amikacin S <16 Amoxacillin/K Clavulanate S <8 Ampicillin S <8 Ampicillin/Sulbactam S <4 Aztreonam S <4 Cefazolin S <2 Cefepime S <2 Ceftazidime S <1 Ceftazidime/Avibactam S <4 Ceftolozane/Tazobactam S <2 Ceftriaxone S <1 Cefuroxime S <4 Ciprofloxacin S <0.25 Ertapenem S <0.5 Gentamicin S <2 Levofloxacin S <0.5 Meropenem S <1 Meropenem/Vaborbactam S <2 Nitrofurantoin S <32 Piperacillin/Tazobactam S <8 Tetracycline S <4 Tigecycline S <2 Tobramycin S <2 Trimethoprim/Sulfamethox azole S <0.5 Aerobic GINA Charge (NMIC56) - SUSCEPTIBILITY ORGANISM: O:PROMIR ANTIBIOTIC INTERPRETATION GINA Amikacin S <16 Amoxacillin/K Clavulanate S <8 Ampicillin S <8 Ampicillin/Sulbactam S <4 Aztreonam S <4 Cefazolin S <2 Cefepime S <2 Ceftazidime S <1 Ceftazidime/Avibactam S <4 Ceftolozane/Tazobactam S <2 Ceftriaxone S <1 Cefuroxime S <4 Ciprofloxacin S <0.25 Ertapenem S <0.5 Gentamicin S <2 Levofloxacin S <0.5 Meropenem S <1 Meropenem/Vaborbactam S <2 Piperacillin/Tazobactam S <8 Tobramycin S <2 Trimethoprim/Sulfamethox azole S <0.5 S = SUSCEPTIBLE I = INTERMEDIATE R = RESISTANT BLANK = DATA NOT AVAILABLE, OR DRUG NOT ADVISABLE OR TESTED R* = RESISTANCE DUE TO EXTENDED SPECTRUM BETA-LACTAMASES ESBL = EXTENDED SPECTRUM BETA-LACTAMASE TFG = THYMIDINE-DEPENDENT STRAIN SHEILA = BETA-LACTAMASE POSITIVE IB = INDUCIBLE BETA-LACTAMASE. APPEARS IN PLACE OF 'S' WITH SPECIES KNOWN TO POSSESS INDUCIBLE BETA-LACTAMASES. POTENTIALLY THEY MAY BECOME RESISTANT TO ALL B-LACTAM DRUGS. PERFORMED BY: [place] [address] PATHOLOGIST MAINTENANCE SUPERVISOR PEREZ SHETH M.D. Normal [facility] Comment on above: Performed By: #### T 4F, CMP, TSH3 #### [facility] [address] [place] [address] Urine cultureOrdered By: Oneal Chambers on 02-18-2025 Bacteria identified Cx Nom (U) Escherichia coli Abnormal [facility] Bacteria identified Cx Nom (U) Proteus mirabilis Abnormal [facility] Albumin [Mass/volume] in Ser um or Plasma by Bromocresol green (BCG) dye binding methoOrdered By: NON STAFF on 02-11-2025 Albumin BCG dye [Mass/Vol] 4.3 g/dL 3.5-5.7 [facility] Calcium [Mass/volume] in Ser um or PlasmaOrdered By: NON STAFF on 02-11-2025 Calcium [Mass/Vol] 8.8 mg/dL Normal 8.6-10.3 [facility] Comment on above: Order Comment: DR AB KIM MARTÍNEZ Performed By: #### I NSULIN, TPO #### [facility] , #### T4F, RENAL, TSH3 #### [address] Carbon dioxide, total [Moles /volume] in Serum or PlasmaOrdered By: NON STAFF on 02-11-2025 CO2 [Moles/Vol] 26.2 mmol/L Normal 21.0-31.0 [facility] Comment on above: Order Comment: DR AB KIM MARTÍNEZ Performed By: #### I NSULIN, TPO #### [facility] , #### T4F, RENAL, TSH3 #### [facility] [address] [place] [address] [place] Chloride [Moles/volume] in S mckenna or PlasmaOrdered By: NON STAFF on 02-11-2025 Chloride [Moles/Vol] 105 mmol/L Normal 98-107 [facility] Comment on above: Order Comment: DR AB KIM MARTÍNEZ Performed By: #### I NSULIN, TPO #### [facility] , #### T4F, RENAL, TSH3 #### [facility] [address] Creatinine [Mass/volume] in Serum or PlasmaOrdered By: NON STAFF on 02-11-2025 Creatinine [Mass/Vol] 0.58 mg/dL Low 0.60-1.20 [facility] Comment on above: Order Comment: DR AB KIM MARTÍNEZ Performed By: #### I NSULIN, TPO #### [facility] , #### T4F, RENAL, TSH3 #### [facility] [address] [place] [address] [place] Glucose [Mass/volume] in Ser um or PlasmaOrdered By: NON STAFF on 02-11-2025 Glucose [Mass/Vol] 81 mg/dL Normal 70-100 [facility] Comment on above: ADA recommended refe rence rangeRandom Glucose Reference Range is dependent on time and content of last meal. Glucose of more than 200 mg/dL in a nonstressed, ambulatory subject supports the diagnosis of Diabetes Mellitus. Order Comment: DR AB KIM MARTÍNEZ Result Comment: [place] om Glucose Reference Range is dependent on time and content of last meal. Glucose of more than 200 mg/dL in a nonstressed, ambulatory subject supports the diagnosis of Diabetes Mellitus. ADA recommended reference range Performed By: #### I NSULIN, TPO #### [facility] , #### T4F, RENAL, TSH3 #### [facility] [address] [place] [id number] [facility] Insulinon 02-11-2025 Insulin 22.3 u[iU]/mL Normal 2.6-24.9 [facility] Comment on above: Order Comment: DR AB KIM MARTÍNEZ Result Comment: Perf ormed at: - [facility] [place] [id number] [place], [place] [id number] Cytotechnologist/Histotechnologist: Chan Bray PhD, Phone: [phone] PERFORMED BY: [place] [address] PATHOLOGIST MAINTENANCE SUPERVISOR PEREZ SHETH M.D. Performed By: #### I NSULIN, TPO #### [facility] , #### T4F, RENAL, TSH3 #### [address] No Panel InformationOrdered By: NON STAFF on 02-11-2025 Estimated GFR (CKD-EPI) > 60.0 mL/Min [facility] Creatinine Clearance (Chem N/A [facility] Phosphate [Mass/volume] in S mckenna or PlasmaOrdered By: NON STAFF on 02-11-2025 Phosphate [Mass/Vol] 3.2 mg/dL Normal 2.5-4.5 [facility] Comment on above: Order Comment: DR AB KIM MARTÍNEZ Performed By: #### I NSULIN, TPO #### [facility] , #### T4F, RENAL, TSH3 #### [address] Potassium [Moles/volume] in Serum or PlasmaOrdered By: NON STAFF on 02-11-2025 Potassium [Moles/Vol] 3.7 mmol/L Normal 3.5-5.1 [facility] Comment on above: Order Comment: DR AB KIM MARTÍNEZ Performed By: #### I NSULIN, TPO #### [facility] , #### T4F, RENAL, TSH3 #### [address] Renal Function Panelon 02-11 Albumin [Mass/Vol] 4.3 g/dL Normal 3.5-5.7 [facility] Comment on above: Order Comment: DR AB KIM MARTÍNEZ Performed By: #### I NSULIN, TPO #### [facility] , #### T4F, RENAL, TSH3 #### [address] GFR/1.73 sq M.predicted MDRD (S/P/Bld) [Vol rate/Area] mL/min/{1.73_m2} Normal [facility] Comment on above: Order Comment: DR AB KIM MARTÍNEZ Performed By: #### I NSULIN, TPO #### [facility] , #### T4F, RENAL, TSH3 #### [address] Serum or plasma anion gap de terminationOrdered By: NON STAFF on 02-11-2025 Anion gap [Moles/Vol] 11.5 mmol/L Normal 6.0-15.0 [facility] Comment on above: Order Comment: DR AB KIM MARTÍNEZ Performed By: #### I NSULIN, TPO #### [facility] , #### T4F, RENAL, TSH3 #### [address] Serum or plasma insulin itzel urement (units/volume)Ordered By: NON STAFF on 02-11-2025 Insulin Qn 22.3 u[iU]/mL 2.6-24.9 [facility] Comment on above: Performed at: [facility] [address] [id number] Director: Chan Bray PhD, Phone: [phone] Serum or plasma thyroperoxid ase antibody assay (units/volume)Ordered By: NON STAFF on 02-11-2025 TPO Ab Qn 14 [IU]/mL 0-34 [facility] Comment on above: Performed at: [facility] [address] [id number] Director: Chan Bray PhD, Phone: [phone] Sodium [Moles/volume] in Ser um or PlasmaOrdered By: NON STAFF on 02-11-2025 Sodium [Moles/Vol] 139 mmol/L Normal 136-145 [facility] Comment on above: Order Comment: DR AB KIM MARTÍNEZ Performed By: #### I NSULIN, TPO #### [facility] , #### T4F, RENAL, TSH3 #### [facility] [address] [place] [address] Thyroid Peroxidase Antibodie son 02-11-2025 Thyroid Peroxidase Antibodies 14 Normal 0-34 [facility] Comment on above: Order Comment: DR AB KIM MARTÍNEZ Result Comment: Perf ormed at: - [facility] [address] [id number] Cytotechnologist/Histotechnologist: Chan Bray PhD, Phone: [phone] Performed By: #### I NSULIN, TPO #### [facility] , #### T4F, RENAL, TSH3 #### [address] Thyrotropin [Units/volume] i n Serum or PlasmaOrdered By: NON STAFF on 02-11-2025 TSH Qn 4.20 m[IU]/L Normal 0.45-5.33 [facility] Comment on above: Order Comment: DR AB KIM MARTÍNEZ Result Comment: PERF ORMED BY: [place] [address] PATHOLOGIST MAINTENANCE SUPERVISOR PEREZ SHETH M.D. Performed By: #### I NSULIN, TPO #### [facility] , #### T4F, RENAL, TSH3 #### [address] Thyroxine (T4) free [Mass/vo lume] in Serum or PlasmaOrdered By: NON STAFF on 02-11-2025 Free T4 [Mass/Vol] 0.92 ng/dL Normal 0.61-1.12 [facility] Comment on above: Order Comment: DR AB KIM MARTÍNEZ Performed By: #### I NSULIN, TPO #### [facility] , #### T4F, RENAL, TSH3 #### [address] Urea nitrogen [Mass/volume] in Serum or PlasmaOrdered By: NON STAFF on 02-11-2025 Urea nitrogen [Mass/Vol] 14 mg/dL Normal 7-25 [facility] Comment on above: Order Comment: DR AB KIM MARTÍNEZ Performed By: #### I NSULIN, TPO #### [facility] , #### T4F, RENAL, TSH3 #### [facility] [address] Pinky 01-11-2025 CNPN Telephone (ENDOMN) -------- VIJAYA TINSLEY ([id number]) 1995 F Date Time Provider Department 01/11/25 SYLVIA BRADY ENDOMN During your visit today, we recorded the following information about you: Keya Ash 01/11/2025 3:11 PM Signed Updated labs from [facility] for CMP, Free T4, TSH Date labs collected 01/07/2025 Date scanned in chart 01/11/2025 Last encounter Visit on 01/02/2025 (with Charu Martínez) Keya Ash [employer] [facility] [place] [facility] X20 Allergies As of Date: 01/11/2025 Noted Allergy Reaction GRASS POLLEN-BERMUDA, STANDARD 08/08/2008 16 - Unknown AMOXICILLIN 01/15/2022 6 - Diarrhea VANCOMYCIN 06/30/2019 4 - Hives Comments: Burning sensation CETIRIZINE 03/16/2013 4 - Hives 14 - Other: See Comments 2 - Rash Comments: hives Date Reviewed: 01/07/2025 Reviewed by: Judy Self LPN - Fully Assessed Reason for Visit: Results [95] Problem List As Of Date 01/11/2025 Noted Resolved OAB (overactive bladder) [N32.81] 04/28/2022 Neurogenic bladder [N31.9] 04/28/2022 Asthma [J45.909] 06/11/2022 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] 01/24/2017 Fatty (change of) liver, not elsewhere classifi*11/27/2021 Class 3 severe obesity in adult (HCC) [E66.813] 06/11/2022 Obesity, Class III, BMI >= 40 [E66.813] 06/21/2022 Moderate protein-calorie malnutrition (HCC) [E4*02/03/2023 PONV (postoperative nausea and vomiting) [R11.2*12/11/2024 Encounter Status:Closed by KEYA ASH on 01/11/25 Normal [facility] CNPNon 01-09-2025 CNPN Telephone (ENDOMN) -------- VIJAYA TINSLEY ([id number]) 1995 F Date Time Provider Department 01/09/25 SYLVIA BRADY ENDOMN During your visit today, we recorded the following information about you: Caitlyn Bynum 01/09/2025 3:23 PM Signed Updated labs from [facility] Date labs collected 01-07-25 Date scanned in chart 01-09-25 Last encounter Visit on 01/02/2025 (with Charu Martínez) Caitlyn Bynum [employer] II Endocrinology AND Metabolism [facility] X-20, F-20 Caitlyn Bynum 01/10/2025 12:56 PM Signed Additional results received Caitlyn Bynum 01/10/2025 2:43 PM Signed Allergies As of Date: 01/09/2025 Noted Allergy Reaction GRASS POLLEN-BERMUDA, STANDARD 08/08/2008 16 - Unknown AMOXICILLIN 01/15/2022 6 - Diarrhea VANCOMYCIN 06/30/2019 4 - Hives Comments: Burning sensation CETIRIZINE 03/16/2013 4 - Hives 14 - Other: See Comments 2 - Rash Comments: hives Date Reviewed: 01/07/2025 Reviewed by: Judy Self LPN - Fully Assessed Reason for Visit: Results [95] Problem List As Of Date 01/09/2025 Noted Resolved OAB (overactive bladder) [N32.81] 04/28/2022 Neurogenic bladder [N31.9] 04/28/2022 Asthma [J45.909] 06/11/2022 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] 01/24/2017 Fatty (change of) liver, not elsewhere classifi*11/27/2021 Class 3 severe obesity in adult (HCC) [E66.813] 06/11/2022 Obesity, Class III, BMI >= 40 [E66.813] 06/21/2022 Moderate protein-calorie malnutrition (HCC) [E4*02/03/2023 PONV (postoperative nausea and vomiting) [R11.2*12/11/2024 Encounter Status:Closed by CAITLYN BYNUM on 01/09/25 Normal [facility] A1C with Estimated Average G luon 01-07-2025 Glucose [Mass/Vol] 103 mg/dL Normal [facility] Comment on above: Result Comment: PERF ORMED BY: [place] [address] PATHOLOGIST MAINTENANCE SUPERVISOR PEREZ SHETH M.D. Performed By: #### T 4F, CMP, TSH3 #### [address] Adrenocorticotropic Hormone PLon 01-07-[address] 43.0 pg/mL Normal 7.2-63.3 [facility] Comment on above: Result Comment: ACTH reference interval for samples collected between 7 and 10 AM. Performed at: [facility] [address] [id number] Cytotechnologist/Histotechnologist: Chan Bray PhD, Phone: [phone] PERFORMED BY: [place] [address] PATHOLOGIST MAINTENANCE SUPERVISOR PEREZ SHETH M.D. Performed By: #### T 4F, CMP, TSH3 #### [facility] [address] [place] [address] [place] Alanine aminotransferase [En zymatic activity/volume] in Serum or PlasmaOrdered By: Dionne Chambers on 01-07-2025 ALT [Catalytic activity/Vol] Alanine aminotransferase [Enzymatic activity/volume] in Serum or Plasma [facility] ALT [Catalytic activity/Vol] 26 U/L Normal [facility] Comment on above: Performed By: #### T 4F, CMP, TSH3 #### [facility] [address] [place] [address] [place] Albumin [Mass/volume] in Ser um or Plasma by Bromocresol green (BCG) dye binding methoOrdered By: Dionne Chambers on 01-07-2025 Albumin BCG dye [Mass/Vol] Albumin [Mass/volume] in Serum or Plasma by Bromocresol green (BCG) dye binding metho 3.5-5.7 [facility] Albumin BCG dye [Mass/Vol] 4.1 g/dL 3.5-5.7 [facility] Alkaline phosphatase [Enzyma tic activity/volume] in Serum or PlasmaOrdered By: Dionne Chambers on 01-07-2025 ALP [Catalytic activity/Vol] Alkaline phosphatase [Enzymatic activity/volume] in Serum or Plasma 34-104 [facility] ALP [Catalytic activity/Vol] 84 U/L Normal [facility] Comment on above: Performed By: #### T 4F, CMP, TSH3 #### [facility] [address] [place] [address] Antithyroglobulin Abon 01-07 Antithyroglobulin Ab 67.7 [IU]/mL High 0.0-0.9 [facility] Comment on above: Result Comment: Thyr oglobulin Antibody measured by Radha Loyal Methodology It should be noted that the presence of thyroglobulin antibodies may not be pathogenic nor diagnostic, especially at very low levels. The assay junior architect has found that four percent of individuals without evidence of thyroid disease or autoimmunity will have positive TgAb levels up to 4 IU/mL. Performed at: [address] [id number] Cytotechnologist/Histotechnologist: Chan Bray PhD, Phone: [phone] PERFORMED BY: [place] [address] PATHOLOGIST MAINTENANCE SUPERVISOR PEREZ SHETH M.D. Performed By: #### T 4FDIMA, TSH3 #### [place] [address] [place] Aspartate aminotransferase [ Enzymatic activity/volume] in Serum or PlasmaOrdered By: Dionne Chambers on 01-07-2025 AST [Catalytic activity/Vol] Aspartate aminotransferase [Enzymatic activity/volume] in Serum or Plasma [facility] AST [Catalytic activity/Vol] 17 U/L Normal [facility] Comment on above: Performed By: #### T 4FDIMA, TSH3 #### [place] [address] [place] Basophils Auto (Bld) [#/Vol] Ordered By: Dionne Chambers on 01-07-2025 Basophils (Bld) [#/Vol] Automated basophil count 0.0-0.2 [facility] Basophils [#/volume] in Bloo d by Automated countOrdered By: Dionne Chambers on 01-07-2025 Basophils (Bld) [#/Vol] 0.1 10*3/uL Normal 0.0-0.2 [facility] Comment on above: Result Comment: PERF ORMED BY: [place] [address] PATHOLOGIST MAINTENANCE SUPERVISOR PEREZ SHETH M.D. Performed By: #### A 1C WTH eA, CBC, LIPID #### [place] [address] [place] Basophils/100 WBC Auto (Bld) Ordered By: Dionne Chambers on 01-07-2025 Basophils/100 WBC (Bld) Automated basophil % . [facility] Basophils/100 leukocytes in Blood by Automated countOrdered By: Dionne Chambers on 01-07-2025 Basophils/100 WBC (Bld) 1.0 % Normal . [facility] Comment on above: Performed By: #### A 1C WTH eA, CBC, LIPID #### [address] [place] [address] [facility] Bilirubin.total [Mass/volume ] in Serum or PlasmaOrdered By: Dionne Chambers on 01-07-2025 Bilirubin [Mass/Vol] Bilirubin.total [Mass/volume] in Serum or Plasma 0.3-1.0 [facility] Bilirubin [Mass/Vol] 0.4 mg/dL Normal 0.3-1.0 [facility] Comment on above: Performed By: #### T 4F, CMP, TSH3 #### [facility] [address] [place] [id number] [facility] Blood estimated average gluc ose determination by estimation from glycated hemoglobinOrdered By: Dionne Chambers on 01-07-2025 Average glucose Estimated from glycated hemoglobin (Bld) [Mass/Vol] 103 mg/dL [facility] CNNURSEon 01-07-2025 CNNURSE Nurse Visit (UROLMN) -------- VIJAYA TINSLEY ([id number]) 1995 F Date Time Provider Department 01/07/25 2:00 PM JUDY SELF During your visit today, we recorded the following information about you: Judy Self LPN 01/07/2025 1:54 PM Signed POST VOID RESIDUAL (PVR) January 07, 2025 at 1:34 PM Patient ID with two (2) identifiers verified by: Judy Self LPN Allergies reviewed and updated: Yes Current pain intensity is: 0 on a 0-10 pain scale. Any concerns about safety in the home/falls: At risk due to: use of a wheelchair Post Void Residual done on patient with 4 cc residual volume remaining. notified. Patient states she has noticed great improvement. She lives in [place] and would like her information sent to her Urologist back home in order to have Botox done at home in the future if needed. Will send a message to Dr. Hatch. All questions answered. Judy Self LPN Referring Provider: DIONNE CHAMBERS [[id number]] Allergies As of Date: 01/07/2025 Noted Allergy Reaction GRASS POLLEN-BERMUDA, STANDARD 08/08/2008 16 - Unknown AMOXICILLIN 01/15/2022 6 - Diarrhea VANCOMYCIN 06/30/2019 4 - Hives Comments: Burning sensation CETIRIZINE 03/16/2013 4 - Hives 14 - Other: See Comments 2 - Rash Comments: hives Date Reviewed: 01/07/2025 Reviewed by: Judy Self LPN - Fully Assessed Reason for Visit: Post Void Residual [355] Primary Visit Diagnosis:Overactive bladder [N32.81] Problem List As Of Date 01/07/2025 Noted Resolved OAB (overactive bladder) [N32.81] 04/28/2022 Neurogenic bladder [N31.9] 04/28/2022 Asthma [J45.909] 06/11/2022 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] 01/24/2017 Fatty (change of) liver, not elsewhere classifi*11/27/2021 Class 3 severe obesity in adult (HCC) [E66.813] 06/11/2022 Obesity, Class III, BMI >= 40 [E66.813] 06/21/2022 Moderate protein-calorie malnutrition (HCC) [E4*02/03/2023 PONV (postoperative nausea and vomiting) [R11.2*12/11/2024 Encounter Status:Closed by JUDY SELF on 01/07/25 Normal [facility] Calcium [Mass/volume] in Ser um or PlasmaOrdered By: Dionne Chambers on 01-07-2025 Calcium [Mass/Vol] Calcium [Mass/volume ] in Serum or Plasma 8.6-10.3 [facility] Calcium [Mass/Vol] 8.9 mg/dL Normal 8.6-10.3 [facility] Comment on above: Performed By: #### T 4F, CMP, TSH3 #### [address] Carbon dioxide, total [Moles /volume] in Serum or PlasmaOrdered By: Dionne Chambers on 01-07-2025 CO2 [Moles/Vol] Carbon dioxide, tota l [Moles/volume] in Serum or Plasma 21.0-31.0 [facility] CO2 [Moles/Vol] 26.1 mmol/L Normal 21.0-31.0 [facility] Comment on above: Performed By: #### T 4F, CMP, TSH3 #### [facility] [address] [place] [id number] [place] Chloride [Moles/volume] in S mckenna or PlasmaOrdered By: Dionne Chambers on 01-07-2025 Chloride [Moles/Vol] Chloride [Moles/vol ume] in Serum or Plasma High 98-107 [facility] Chloride [Moles/Vol] 108 mmol/L High 98-107 [facility] Comment on above: Performed By: #### T 4F, DIMA, TSH3 #### [facility] [address] [place] [id number] [place] Cholesterol [Mass/volume] in Serum or PlasmaOrdered By: Dionne Chambers on 01-07-2025 Cholesterol [Mass/Vol] Cholesterol [Mass/volume] in Serum or Plasma 140-200 [facility] Comment on above: Chol less than 200 m g/dl low riskChol 201-239 mg/dl borderline riskChol 240 mg/dl and greater high risk Cholesterol [Mass/Vol] 166 mg/dL Normal 140-200 [facility] Comment on above: Chol less than 200 m g/dl low riskChol 201-239 mg/dl borderline riskChol 240 mg/dl and greater high risk Result Comment: Chol less than 200 mg/dl low risk Chol 201-239 mg/dl borderline risk Chol 240 mg/dl and greater high risk Performed By: #### T 4F, DIMA, TSH3 #### [facility] [address] [place] [id number] [place] Cholesterol in HDL [Mass/vol ume] in Serum or PlasmaOrdered By: Dionne Chambers on 01-07-2025 Cholesterol in HDL [Mass/Vol] Serum or plasma high density lipoprotein (HDL) cholesterol measurement 23-92 [facility] Comment on above: HDL CHOL ATP-III CLA SSIFICATION Cardiovascular RiskHDL > or equal to 60 mg/dL LOWHDL < 40 mg/dL HIGH Cholesterol in HDL [Mass/Vol] 46 mg/dL Normal 23-92 [facility] Comment on above: HDL CHOL ATP-III CLA SSIFICATION Cardiovascular RiskHDL > or equal to 60 mg/dL LOWHDL < 40 mg/dL HIGH Result Comment: HDL CHOL ATP-III CLASSIFICATION Cardiovascular Risk HDL > or equal to 60 mg/dL LOW HDL < 40 mg/dL HIGH Performed By: #### T 4F, CMP, TSH3 #### [facility] [address] [place] [address] [facility] Cholesterol in LDL Calc [Mas s/Vol]Ordered By: Dionne Chambers on 01-07-2025 Cholesterol in LDL [Mass/Vol] Cholesterol in LDL [Mass/volume] in Serum or Plasma by calculation High 0-100 [facility] Comment on above: LDL ATP III CLASSIFI CATIONLDL less than 100 mg/dL OptimalLDL 100-129 mg/dL Near or above optimalLDL 130-159 mg/dL Borderline highLDL 160-189 mg/dL HighLDL greater than 189 mg/dL Very high Cholesterol in LDL [Mass/Vol] 108 mg/dL High 0-100 [facility] Comment on above: LDL ATP III CLASSIFI CATIONLDL less than 100 mg/dL OptimalLDL 100-129 mg/dL Near or above optimalLDL 130-159 mg/dL Borderline highLDL 160-189 mg/dL HighLDL greater than 189 mg/dL Very high Cholesterol in VLDL Calc [Ma ss/Vol]Ordered By: Dionne Chambers on 01-07-2025 Cholesterol in VLDL [Mass/Vol] Cholesterol in VLDL [Mass/volume] in Serum or Plasma by calculation [facility] Cholesterol in VLDL [Mass/Vol] 11 mg/dL [facility] Complete Blood Count Auto Di ffon 01-07-2025 Mean Corpuscular HGB Conc 34.0 g/dL Normal 32.0-35.0 [facility] Comment on above: Performed By: #### A 1C WT eA, CBC, LIPID #### [facility] [address] [place] [address] [place] NRBC% 0.1 /100{WBC} Normal 0-0.5 [facility] Comment on above: Performed By: #### A 1C WTH eA, CBC, LIPID #### [facility] [address] Comprehensive Metabolic Pane brennon 01-07-2025 Albumin [Mass/Vol] 4.1 g/dL Normal 3.5-5.7 [facility] Comment on above: Performed By: #### T 4F, CMP, TSH3 #### [address] GFR/1.73 sq M.predicted MDRD (S/P/Bld) [Vol rate/Area] mL/min/{1.73_m2} Normal [facility] Comment on above: Performed By: #### T 4F, CMP, TSH3 #### [address] Cortisolon 01-07-2025 Cortisol 13.3 ug/dL Normal [facility] Comment on above: Result Comment: Refe rence range: AM 6 - 24 ug/dl PM <10 ug/dl [facility] Laboratory junior architect and method: [facility] UNICEL DXI, POLYCLONAL ANTIBODY CORTISOL ASSAY. PERFORMED BY: [place] [address] PATHOLOGIST MAINTENANCE SUPERVISOR PEREZ SHETH M.D. Performed By: #### T 4F, CMP, TSH3 #### [address] Cortisol [Mass/volume] in Se rum or PlasmaOrdered By: Sylvia Colbert on 01-07-2025 Cortisol [Mass/Vol] Random cortisol measurement [facility] Comment on above: [facility] junior architect and method:RADHA UNICEL DXI, POLYCLONAL ANTIBODY CORTISOL ASSAY.Reference range: AM 6 - 24 ug/dl PM <10 ug/dl Cortisol [Mass/Vol] 13.3 ug/dL [facility] Comment on above: [facility] junior architect and method:RADHA UNICEL DXI, POLYCLONAL ANTIBODY CORTISOL ASSAY.Reference range: AM 6 - 24 ug/dl PM <10 ug/dl Creatinine [Mass/volume] in Serum or PlasmaOrdered By: Dionne Chambers on 01-07-2025 Creatinine [Mass/Vol] Creatinine [Mass/v olume] in Serum or Plasma Low 0.60-1.20 [facility] Creatinine [Mass/Vol] 0.50 mg/dL Low 0.60-1.20 [facility] Comment on above: Performed By: #### T 4F, CMP, TSH3 #### [address] Dehydroepiandrosterone Sulfa isaías 01-07-2025 Dehydroepiandrosterone Sulfate 133.0 ug/dL Normal 84.8-378.0 [facility] Comment on above: Performed By: #### T 4F, CMP, TSH3 #### [address] Eosinophils Auto (Bld) [#/Vo l]Ordered By: Dionne Chambers on 01-07-2025 Eosinophils (Bld) [#/Vol] Automated eosinophil count 0.0-0.45 [facility] Eosinophils [#/volume] in Bl ood by Automated countOrdered By: Dionne Chambers on 01-07-2025 Eosinophils (Bld) [#/Vol] 0.2 10*3/uL Normal 0.0-0.45 [facility] Comment on above: Performed By: #### A 1C WTH eA, CBC, LIPID #### [address] Eosinophils/100 WBC Auto (Bl d)Ordered By: Dionne Chambers on 01-07-2025 Eosinophils/100 WBC (Bld) Automated eosinophil % . [facility] Eosinophils/100 leukocytes i n Blood by Automated countOrdered By: Dionne Chambers on 01-07-2025 Eosinophils/100 WBC (Bld) 3.2 % Normal . [facility] Comment on above: Performed By: #### A 1C WTH eA, CBC, LIPID #### [address] Erythrocyte distribution wid th Auto (RBC) [Ratio]Ordered By: Dionne Chambers on 01-07-2025 Erythrocyte distribution width (RBC) [Ratio] Erythrocyte distribution width [Ratio] by Automated count 11.9-15.3 [facility] Erythrocyte distribution wid th [Ratio] by Automated countOrdered By: Dionne Chambers on 01-07-2025 Erythrocyte distribution width (RBC) [Ratio] 13.8 % Normal 11.9-15.3 [facility] Comment on above: Performed By: #### A 1C WTH eA, CBC, LIPID #### [facility] [address] Erythrocytes [#/volume] in B lood by Automated countOrdered By: Dionne Chambers on 01-07-2025 RBC (Bld) [#/Vol] 4.50 10*6/uL Normal 3.60-5.00 [facility] Comment on above: Performed By: #### A 1C WT eA, CBC, LIPID #### [facility] [address] Globulin Calc (S) [Mass/Vol] Ordered By: Dionne Chambers on 01-07-2025 Globulin (S) [Mass/Vol] Serum globulin measurement by calculation (mass/volume) [facility] Glucose [Mass/volume] in Ser um or PlasmaOrdered By: Dionne Chambers on 01-07-2025 Glucose [Mass/Vol] Glucose [Mass/volume ] in Serum or Plasma 70-100 [facility] Comment on above: ADA recommended refe rence rangeRandom Glucose Reference Range is dependent on time and content of last meal. Glucose of more than 200 mg/dL in a nonstressed, ambulatory subject supports the diagnosis of Diabetes Mellitus. Glucose [Mass/Vol] 95 mg/dL Normal 70-100 [facility] Comment on above: ADA recommended refe rence rangeRandom Glucose Reference Range is dependent on time and content of last meal. Glucose of more than 200 mg/dL in a nonstressed, ambulatory subject supports the diagnosis of Diabetes Mellitus. Result Comment: [place] Glucose Reference Range is dependent on time and content of last meal. Glucose of more than 200 mg/dL in a nonstressed, ambulatory subject supports the diagnosis of Diabetes Mellitus. ADA recommended reference range Performed By: #### T 4F, CMP, TSH3 #### [facility] [address] Hematocrit Auto (Bld) [Volum e fraction]Ordered By: Dionne Chambers on 01-07-2025 Hematocrit (Bld) [Volume fraction] Hematocrit [Volume Fraction] of Blood by Automated count 34.0-46.4 [facility] Hematocrit [Volume Fraction] of Blood by Automated countOrdered By: Dionne Chambers on 01-07-2025 Hematocrit (Bld) [Volume fraction] 39.4 % Normal 34.0-46.4 [facility] Comment on above: Performed By: #### A 1C WTH eA, CBC, LIPID #### [facility] [address] Hemoglobin A1c/Hemoglobin.to parker in BloodOrdered By: Dionne Chambers on 01-07-2025 HbA1c (Bld) [Mass fraction] 5.2 % Normal 4.3-5.6 [facility] Comment on above: Increased risk for d iabetes: 5.7 - 6.4diabetes: >6.4glycemic control for adults with diabetes: <7.0 Result Comment: Incr eased risk for diabetes: 5.7 - 6.4 diabetes: >6.4 glycemic control for adults with diabetes: <7.0 Performed By: #### T 4F, CMP, TSH3 #### [address] Hemoglobin [Mass/volume] in BloodOrdered By: Dionne Chambers on 01-07-2025 Hemoglobin (Bld) [Mass/Vol] Hemoglobin [Mass/volume] in Blood 11.8-15.4 [facility] Hemoglobin (Bld) [Mass/Vol] 13.4 g/dL Normal 11.8-15.4 [facility] Comment on above: Performed By: #### A 1C WTH eA, CBC, LIPID #### [address] Insulinon 01-07-2025 Insulin 17.3 u[iU]/mL Normal 2.6-24.9 [facility] Comment on above: Result Comment: Perf ormed at: - [facility] [address] [id number] Cytotechnologist/Histotechnologist: Chan Bray PhD, Phone: [phone] Performed By: #### T 4F, CMP, TSH3 #### [facility] [address] Leukocytes [#/volume] correc jonas for nucleated erythrocytes in Blood by Automated counOrdered By: Dionne Chambers on 01-07-2025 WBC corrected for nucl RBC Auto (Bld) [#/Vol] Leukocytes [#/volume] corrected for nucleated erythrocytes in Blood by Automated coun 3.8-11.6 [facility] WBC corrected for nucl RBC Auto (Bld) [#/Vol] 5.7 10*3/uL 3.8-11.6 [facility] Leukocytes [#/volume] in Blo od by Automated countOrdered By: Dionne Chambers on 01-07-2025 WBC (Bld) [#/Vol] 5.7 10*3/uL Normal 3.8-11.6 [facility] Comment on above: Performed By: #### A 1C [facility] eA, CBC, LIPID #### [facility] [address] [id number] [facility] Lipid Panelon 01-07-2025 LDL Cholesterol,Calculated 108 mg/dL High 0-100 [facility] Comment on above: Result Comment: LDL ATP III CLASSIFICATION LDL less than 100 mg/dL Optimal LDL 100-129 mg/dL Near or above optimal LDL 130-159 mg/dL Borderline high LDL 160-189 mg/dL High LDL greater than 189 mg/dL Very high Performed By: #### T 4F, CMP, TSH3 #### [address] Triglyceride w/Reflex 59 mg/dL Normal 0-149 [facility] Comment on above: Result Comment: TRIG ATP III CLASSIFICATION TRIG less than 150 mg/dL Normal TRIG 150-199 mg/dL Borderline high TRIG 200-500 mg/dL High TRIG greater than 500 mg/dL Very high Standard traceable to the Center for Disease Conrtrol and Prevention (CDC) test method. Performed By: #### T 4F, CMP, TSH3 #### [facility] [address] VLDL CHOLESTEROL 11 mg/dL Normal [facility] Comment on above: Performed By: #### T 4F, CMP, TSH3 #### [address] Lymphocytes Auto (Bld) [#/Vo l]Ordered By: Dionne Chambers on 01-07-2025 Lymphocytes (Bld) [#/Vol] Lymphocytes [#/volume] in Blood by Automated count 1.00-4.8 [facility] Lymphocytes [#/volume] in Bl ood by Automated countOrdered By: Dionne Chambers on 01-07-2025 Lymphocytes (Bld) [#/Vol] 1.7 10*3/uL Normal 1.00-4.8 [facility] Comment on above: Performed By: #### A 1C WT eA, CBC, LIPID #### [address] Lymphocytes/100 WBC Auto (Bl d)Ordered By: Dionne Chambers on 01-07-2025 Lymphocytes/100 WBC (Bld) Lymphocytes/100 leukocytes in Blood by Automated count . [facility] Lymphocytes/100 leukocytes i n Blood by Automated countOrdered By: Dionne Chambers on 01-07-2025 Lymphocytes/100 WBC (Bld) 29.8 % Normal . [facility] Comment on above: Performed By: #### A 1C WT eA, CBC, LIPID #### [address] MCH Auto (RBC) [Entitic mass ]Ordered By: Dionne Chambers on 01-07-2025 MCH (RBC) [Entitic mass] MCH [Entitic mass] by Automated count 24.7-34.3 [facility] MCH [Entitic mass] by Automa jonas countOrdered By: Dionne Chambers on 01-07-2025 MCH (RBC) [Entitic mass] 29.8 pg Normal 24.7-34.3 [facility] Comment on above: Performed By: #### A 1C [facility] eA, CBC, LIPID #### [address] MCHC Auto (RBC) [Mass/Vol]Or dered By: Dionne Chambers on 01-07-2025 MCHC (RBC) [Mass/Vol] MCHC [Mass/volume] by Automated count 32.0-35.0 [facility] MCHC (RBC) [Mass/Vol] 34.0 g/dL 32.0-35.0 [facility] MCV Auto (RBC) [Entitic vol] Ordered By: Dionne Chambers on 01-07-2025 MCV (RBC) [Entitic vol] MCV [Entitic vol ume] by Automated count 80-100 [facility] MCV [Entitic volume] by Auto mated countOrdered By: Dionne Chambers on 01-07-2025 MCV (RBC) [Entitic vol] 87.5 fL Normal 80-100 [facility] Comment on above: Performed By: #### A 1C WT eA, CBC, LIPID #### [facility] [address] [place] [address] Monocytes Auto (Bld) [#/Vol] Ordered By: Dionne Chambers on 01-07-2025 Monocytes (Bld) [#/Vol] Automated blood monocyte count 0.0-0.8 [facility] Monocytes [#/volume] in Bloo d by Automated countOrdered By: Dionne Chambers on 01-07-2025 Monocytes (Bld) [#/Vol] 0.3 10*3/uL Normal 0.0-0.8 [facility] Comment on above: Performed By: #### A 1C WT eA, CBC, LIPID #### [facility] [address] [place] [address] [place] Monocytes/100 WBC Auto (Bld) Ordered By: Dionne Chambers on 01-07-2025 Monocytes/100 WBC (Bld) Automated monocyte % . [facility] Monocytes/100 leukocytes in Blood by Automated countOrdered By: Dionne Chambers on 01-07-2025 Monocytes/100 WBC (Bld) 5.7 % Normal . [facility] Comment on above: Performed By: #### A 1C WT eA, CBC, LIPID #### [facility] [address] [place] [address] [place] Neutrophils Auto (Bld) [#/Vo l]Ordered By: Dionne Chambers on 01-07-2025 Neutrophils (Bld) [#/Vol] Neutrophils [#/volume] in Blood by Automated count 1.8-7.7 [facility] Neutrophils [#/volume] in Bl ood by Automated countOrdered By: Dionne Chambers on 01-07-2025 Neutrophils (Bld) [#/Vol] 3.4 10*3/uL Normal 1.8-7.7 [facility] Comment on above: Performed By: #### A 1C [facility] eA, CBC, LIPID #### [facility] [address] [place] [address] [place] Neutrophils/100 WBC Auto (Bl d)Ordered By: Dionne Chambers on 01-07-2025 Neutrophils/100 WBC (Bld) Automated neutrophil % . [facility] Neutrophils/100 leukocytes i n Blood by Automated countOrdered By: Dionne Chambers on 01-07-2025 Neutrophils/100 WBC (Bld) 60.3 % Normal . [facility] Comment on above: Performed By: #### A 1C [facility] eA, CBC, LIPID #### [facility] [address] No Panel InformationOrdered By: Dionne Chambers on 01-07-2025 Estimated GFR (CKD-EPI) > 60.0 mL/Min [facility] Creatinine Clearance (Chem N/A [facility] Nucleated erythrocytes [Pres ence] in Blood by Automated countOrdered By: Dionne Chambers on 01-07-2025 Nucleated RBC Auto Ql (Bld) Nucleated erythrocytes [Presence] in Blood by Automated count 0-0.5 [facility] Nucleated RBC Auto Ql (Bld) 0.1 /100{WBC} 0-0.5 [facility] Platelet mean volume Auto (B ld) [Entitic vol]Ordered By: Dionne Chambers on 01-07-2025 Platelet mean volume (Bld) [Entitic vol] Platelet mean volume [Entitic volume] in Blood by Automated count 6.3-10.7 [facility] Platelet mean volume [Entiti c volume] in Blood by Automated countOrdered By: Dionne Chambers on 01-07-2025 Platelet mean volume (Bld) [Entitic vol] 8.9 fL Normal 6.3-10.7 [facility] Comment on above: Performed By: #### A 1C WT eA, CBC, LIPID #### [facility] [address] Platelets Auto (Bld) [#/Vol] Ordered By: Dionne Chambers on 01-07-2025 Platelets (Bld) [#/Vol] Platelets [#/vol ume] in Blood by Automated count 150-450 [facility] Platelets [#/volume] in Bloo d by Automated countOrdered By: Dionne Chambers on 01-07-2025 Platelets (Bld) [#/Vol] 295 10*3/uL Normal 150-450 [facility] Comment on above: Performed By: #### A 1C WT eA, CBC, LIPID #### [address] Potassium [Moles/volume] in Serum or PlasmaOrdered By: Dionne Chambers on 01-07-2025 Potassium [Moles/Vol] Potassium [Moles/v olume] in Serum or Plasma 3.5-5.1 [facility] Potassium [Moles/Vol] 3.9 mmol/L Normal 3.5-5.1 [facility] Comment on above: Performed By: #### T 4F, CMP, TSH3 #### [address] Protein [Mass/volume] in Ser um or PlasmaOrdered By: Dionne Chambers on 01-07-2025 Protein [Mass/Vol] Protein [Mass/volume ] in Serum or Plasma 6.4-8.9 [facility] Protein [Mass/Vol] 6.6 g/dL Normal 6.4-8.9 [facility] Comment on above: Performed By: #### T 4F, CMP, TSH3 #### [address] RBC Auto (Bld) [#/Vol]Ordere d By: Dionne Chambers on 01-07-2025 RBC (Bld) [#/Vol] Erythrocytes [#/volu me] in Blood by Automated count 3.60-5.00 [facility] Serum globulin measurement b y calculation (mass/volume)Ordered By: Dionne Chambers on 01-07-2025 Globulin (S) [Mass/Vol] 2.5 g/dL Normal [facility] Comment on above: Performed By: #### T 4F, CMP, TSH3 #### [facility] [address] [place] [address] Serum or plasma albumin/glob ulin mass ratioOrdered By: Dionne Chambers on 01-07-2025 Albumin/Globulin [Mass ratio] Serum or plasma albumin/globulin mass ratio [facility] Albumin/Globulin [Mass ratio] 1.6 {ratio} Normal [facility] Comment on above: Performed By: #### T 4F, CMP, TSH3 #### [address] Serum or plasma anion gap de terminationOrdered By: Dionne Chambers on 01-07-2025 Anion gap [Moles/Vol] Serum or plasma an ion gap determination 6.0-15.0 [facility] Anion gap [Moles/Vol] 9.8 mmol/L Normal 6.0-15.0 [facility] Comment on above: Performed By: #### T 4F, CMP, TSH3 #### [address] Serum or plasma insulin itzel urement (units/volume)Ordered By: Sylvia Colbert on 01-07-2025 Insulin Qn 17.3 u[iU]/mL 2.6-24.9 [facility] Comment on above: Performed at: - L [address] [id number] Director: Chan Bray PhD, Phone: [phone] Serum or plasma thyroglobuli n antibody assay (units/volume)Ordered By: Sylvia Colbert on 01-07-2025 Thyroglobulin Ab Qn 67.7 [IU]/mL High 0.0-0.9 [facility] Comment on above: Thyroglobulin Antibo dy measured by EnersaveMethodologyIt should be noted that the presence of thyroglobulinantibodies may not be pathogenic nor diagnostic, especiallyat very low levels. The assay junior architect has found thatfour percent of individuals without evidence of thyroiddisease or autoimmunity will have positive TgAb levels upto 4 IU/mL.Performed at: [facility] - [facility] [address] [id number] Director: Chan Bray PhD, Phone: [phone] Serum or plasma thyroperoxid ase antibody assay (units/volume)Ordered By: Sylvia Colbert on 01-07-2025 TPO Ab Qn 16 [IU]/mL 0-34 [facility] Comment on above: Performed at: [facility] - [facility] [address] [id number] Director: Chan Bray PhD, Phone: [phone] Serum or plasma total choles terol/high density lipoprotein (HDL) cholesterol mass ratOrdered By: Dionne Chambers on 01-07-2025 Cholesterol.total/Vivi sterol in HDL [Mass ratio] Serum or plasma total cholesterol/high density lipoprotein (HDL) cholesterol mass rat <5.0 [facility] Cholesterol.total/Vivi sterol in HDL [Mass ratio] 3.6 {ratio} Normal <5.0 [facility] Comment on above: Result Comment: PERF ORMED BY: [place] [address] PATHOLOGIST MAINTENANCE SUPERVISOR PEREZ SHETH M.D. Performed By: #### T 4F, CMP, TSH3 #### [facility] [address] [place] [address] Sodium [Moles/volume] in Ser um or PlasmaOrdered By: Dionne Chambers on 01-07-2025 Sodium [Moles/Vol] Sodium [Moles/volume ] in Serum or Plasma 136-145 [facility] Sodium [Moles/Vol] 140 mmol/L Normal 136-145 [facility] Comment on above: Performed By: #### T 4F, CMP, TSH3 #### [facility] [address] [place] [address] [place] Thyroid Peroxidase Antibodie son 06-02-2025 Thyroid Peroxidase Antibodies 16 [IU]/mL Normal 0-34 [facility] Comment on above: Result Comment: Perf ormed at: - [facility] [id number] Cytotechnologist/Histotechnologist: Chan Bray PhD, Phone: [phone] Performed By: #### T 4F, CMP, TSH3 #### [address] Thyrotropin [Units/volume] i n Serum or PlasmaOrdered By: Dionne Chambers on 01-07-2025 TSH Qn Thyrotropin [Units/volume] in Serum or Plasma 0.45-5.33 [facility] TSH Qn 3.61 m[IU]/L Normal 0.45-5.33 [facility] Comment on above: Result Comment: PERF ORMED BY: [place] [address] PATHOLOGIST MAINTENANCE SUPERVISOR PEREZ SHETH M.D. Performed By: #### T 4F, CMP, TSH3 #### [address] Thyroxine (T4) free [Mass/vo lume] in Serum or PlasmaOrdered By: Dionne Chambers on 01-07-2025 Free T4 [Mass/Vol] Thyroxine (T4) free [Mass/volume] in Serum or Plasma 0.61-1.12 [facility] Free T4 [Mass/Vol] 0.90 ng/dL Normal 0.61-1.12 [facility] Comment on above: Performed By: #### T 4F, CMP, TSH3 #### [address] Triglyceride [Mass/volume] i n Serum or PlasmaOrdered By: Dionne Chambers on 01-07-2025 Triglyceride [Mass/Vol] Triglyceride [Mass/volume] in Serum or Plasma 0-149 [facility] Comment on above: TRIG ATP III CLASSIF ICATIONTRIG less than 150 mg/dL NormalTRIG 150-199 mg/dL Borderline highTRIG 200-500 mg/dL High TRIG greater than 500 mg/dL Very highStandard traceable to the Center for Disease Conrtrol and Prevention (CDC) test method. Triglyceride [Mass/Vol] 59 mg/dL 0-149 [facility] Comment on above: TRIG ATP III CLASSIF ICATIONTRIG less than 150 mg/dL NormalTRIG 150-199 mg/dL Borderline highTRIG 200-500 mg/dL High TRIG greater than 500 mg/dL Very highStandard traceable to the Center for Disease Conrtrol and Prevention (CDC) test method. Triiodothyronine (T3) Totalo n 01-07-2025 Triiodothyronine (T3) Total 1.19 ng/mL Normal 0.87-1.78 [facility] Comment on above: Performed By: #### T 4FDIMA, TSH3 #### [facility] [address] Triiodothyronine (T3) [Mass/ volume] in Serum or PlasmaOrdered By: Sylvia Colbert on 01-07-2025 T3 [Mass/Vol] Triiodothyronine (T3 ) [Mass/volume] in Serum or Plasma 0.87-1.78 [facility] T3 [Mass/Vol] 1.19 ng/mL 0.87-1.78 [facility] Urea nitrogen [Mass/volume] in Serum or PlasmaOrdered By: Dionne Chambers on 01-07-2025 Urea nitrogen [Mass/Vol] Urea nitrogen [Mass/volume] in Serum or Plasma 7-25 [facility] Urea nitrogen [Mass/Vol] 14 mg/dL Normal -25 [facility] Comment on above: Performed By: #### T 4F, CMP, TSH3 #### [facility] [address] [place] [address] WBC Auto (Bld) [#/Vol]Ordere d By: Dionne Chambers on 01-07-2025 WBC (Bld) [#/Vol] Leukocytes [#/volume ] in Blood by Automated count 3.8-11.6 [facility] CNPNon 01-02-2025 HARDIK Telephone ([facility]) -------- VIJAYA TINSLEY ([id number]) 1995 F Date Time Provider Department 01/02/25 CHARU MARTÍNEZ During your visit today, we recorded the following information about you: Allergies As of Date: 01/02/2025 Noted Allergy Reaction GRASS POLLEN-BERMUDA, STANDARD 08/08/2008 16 - Unknown AMOXICILLIN 01/15/2022 6 - Diarrhea VANCOMYCIN 06/30/2019 4 - Hives Comments: Burning sensation CETIRIZINE 03/16/2013 4 - Hives 14 - Other: See Comments 2 - Rash Comments: hives Date Reviewed: 12/19/2024 Reviewed by: Avinash Blevins RN - Fully Assessed Problem List As Of Date 01/02/2025 Noted Resolved OAB (overactive bladder) [N32.81] 04/28/2022 Neurogenic bladder [N31.9] 04/28/2022 Asthma [J45.909] 06/11/2022 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 Author Type: Registered Nurse Type: [id number] Filed: 12/19/2024 12:51 Note Text: Patient was given 1,000 Mg of tylenol at 12:00 PM, Today, at [facility]. [facility] ANES POSTPROC EVALon 025 ANES POSTPROC EVAL HNO ID: [id number] Author: TYLER MUNGUIA MD Service: Anesthesiology Author Type: Anesthesiologist Type: Anesthesia Postprocedure Evaluation Filed: 12/19/2024 14:33 Note Text: POST ANESTHESIA EVALUATION NOTE : 1995 Procedure Summary Date: 12/19/24 Room / Location: [address] Anesthesia Start: 1224 Anesthesia Stop: 1301 Procedure: CYSTOURETHROSCOPY W/INJECTION(S) FOR CHEMODENERVATION OF THE BLADDER (BOTOX) (Bladder) Diagnosis: Overactive bladder Urinary frequency (Overactive bladder [N32.81]) (Urinary frequency [R35.0]) Surgeons: Dian Wiggins MD Responsible Provider: Tyler Munguia MD Anesthesia Type: general ASA Status: 3 Anesthesia Type: general Airway Type: LMA Last Vitals Vitals Value Taken Time BP 129/81 12/19/24 1330 Temp 36.2 ?C (97.2 ?F) 12/19/24 1330 HR SpO2 84 12/19/24 1334 Resp 16 12/19/24 1330 SpO2 100 % 12/19/24 1334 Vitals shown include unfiled device data. Post Anesthesia Patient Status Patient Evaluation: PACU. PACU/ICU Patient Condition: stable. Anticipated Disposition: phase 2 then home. Neurological Status: aware and responsive. Pulmonary Status: breathing comfortably on room air Airway Control: returned to baseline unsupported. Cardiovascular Status: stable. Pain Management: clinically adequate Postoperative Hydration: acceptable. Intraoperative Events: no significant anesthesia events Post Operative Nausea/Vomiting Status: no significant post operative nausea or vomiting Recommendation: continue current plan of care. Anesthesia Observations No Documentation SIGNATURE: Tyler Munguia MD PATIENT NAME: Vijaya Tinsley DATE: December 19, 2024 TIME: 2:32 PM CSN: [id number] Normal [facility] ANES PRE-OPon 12-19-2024 ANES PRE-OP HNO ID: [id number] Author: TYLER MUNGUIA MD Service: Anesthesiology Author Type: Anesthesiologist Type: Anesthesia Preprocedure Evaluation Filed: 12/19/2024 11:46 Note Text: ANESTHESIOLOGY DAY OF SURGERY NOTE : 1995 Procedure Information Date/Time: 12/19/24 1205 Procedure: CYSTOURETHROSCOPY W/INJECTION(S) FOR CHEMODENERVATION OF THE BLADDER (BOTOX) (Bladder) Location: [address] Surgeons: Dian Wiggins MD Estimated body mass index is 46.64 kg/m? as calculated from the following: Height as of 12/11/24: 157.5 cm (5' 2 ). Weight as of 12/11/24: 115.7 kg (255 lb). Most recent hematocrit and potassium results: No results found for this basename: HCT,HEMATOCRIT,K,POTASSI UM Relevant Problems ANESTHESIA (+) PONV (postoperative nausea and vomiting) -RENAL (+) Fatty (change of) liver, not elsewhere classified PULMONARY (+) Asthma (HCC) Neurology (+) Diplegic cerebral palsy (HCC) Other (+) Class 3 severe obesity in adult I - PHYSICAL EVALUATION AIRWAY Patient intubated: No. Tracheostomy tube not present Mallampati: II. TM distance: >3 FB. Neck ROM: full ROM without neurological symptoms. Mouth opening: adequate. Short neck: no. Thick neck: no DENTAL Dental findings: teeth intact. Additional exam findings: yes. CARDIOVASCULAR Rhythm: regular Rate: normal PULMONARY Breath sounds clear to auscultation. Other findings: Patient reports possibly having absence seizures. Neurology appointment next month. II - ANESTHESIA PLAN ASA Score: 3 Anesthetic Plan: general Airway type: LMA NPO Status: adequate Beta Delia Monitoring Plan Monitoring plan: standard ASA. Post Procedure Analgesic Plan Postoperative analgesic plan: multimodal analgesia. Informed Consent Anesthetic risks, benefits, alternatives, personnel and consent discussed: yes. Patient / Responsible Constitution Party agrees to proceed: yes Patient / Surrogate agrees to blood products: blood products not planned Significant changes in the patient condition since the History and Physical, not otherwise documented in primary service progress note: no. Potential Anesthesia issues that may suggest increased risk of complications or contraindication to planned procedure: none. No vitals data found for the desired time range. No current facility-administered medications on file as of 12/19/2024. Outpatient Medications as of 12/19/2024 Medication Sig [] phenazopyridine (PYRIDIUM) 200 mg tablet Take 1 tablet by mouth three times a day as needed for up to 5 days. (Patient not taking: Reported on 12/04/2024) [] sulfamethoxazole-trimeth oprim (BACTRIM DS) 800-160 mg per tablet Take 1 tablet by mouth two times a day for 5 days. (Patient not taking: Reported on 12/04/2024) I have interviewed and examined the patient. I have reviewed the medical record and/or the pre-anesthesia evaluation, pertinent labs, and test results. This contains updated information obtained within 48 hours of Surgery/Procedure. SIGNATURE: Tyler Munguia MD PATIENT NAME: Vijaya Tinsley DATE: December 19, 2024 TIME: 11:41 AM CSN: [id number] Normal [facility] OPERATIVE NOon 12-19-2024 OPERATIVE NO HNO ID: [id number] Author: DIAN WIGGINS MD Service: ? Author Type: Physician Type: Operative Report Filed: 12/19/2024 12:44 Note Text: OPERATIVE/PROCEDURE REPORT LOG ID: [id number] SURGERY/PROCEDURE DATE: 12/19/2024 INCISION/PROCEDURE START TIME: INCISION CLOSE/PROCEDURE END TIME: SURGEON(S)/PROCEDURALIST (S) AND ECONOMIC ADVISER(S): Surgeons and Role: * Dian Wiggins MD - Primary No Additional Staff SURGERY/PROCEDURE(S): Cystoscopy, botox injections ANESTHESIA: General Indication: 29F with neurogenic bladder, OAB s/p SNM who has residual symptoms of UUI. Risks and benefits discussed and she elects to proceed with botox injections. SURGERY/PROCEDURE DETAILS: Patient was brought into the room, placed in supine. Team huddle was done. IV abx given. SCDs placed. Anesthesia given and she was intubated. She was then positioned in dorsal lithotomy. After the genitalia were prepped and draped in a sterile manner a timeout was performed which confirmed the above information. A flexible cystoscope was inserted atruamtically through the urethra. The bladder was distended with no abnormalities of the bladder mucosa noted. No bladder stones. 100 units of botox in 10 cc were injected throughout the posterior bladder wall and trigone. There was no major bleeding noted. The cystoscope was removed. Patient tolerated procedure well PRE-OP/PRE-PROCEDURE DIAGNOSIS: urgency, frequency, urge incontinence POST-OP/POST-PROCEDURE DIAGNOSIS: Same as Preop ESTIMATED BLOOD LOSS: 0 ml SPECIMENS: None IMPLANTABLE DEVICES: NONE DRAINS: None COMPLICATIONS: None CLOSURE TECHNIQUE: Primary PARTICIPATION IN SURGERY/PROCEDURE: No qualified resident/fellow was available. I/primary surgeon/proceduralist performed the entire procedure. SIGNATURE: Dian Desai MD PATIENT NAME: Vijaya Tinsley DATE: December 19, 2024 TIME: 12:21 PM Normal [facility] Coding Summaryon 12-12-2024 Coding Summary HTMLBase 64 JhnvpxplSXj7mZe+PGhlYWQ+ EB9NUGLoV38ajIMfkI6kC5MU TElOSywgQVBQTElOSyIgbmFt CO0svTBuMWZu IC8+VV3eDNBlLkjxnWWay1G7 fPL8X59bfe4vZLdajQO1HBXb YdOdmtfsr0haeVv2FLshHwdc OyBt HNEhaL93HTN4vW69Ke38mZUi pIHqp2cbbOt3FvDyPGKjSPT4 vFnhVDazm9ObXVWbD20jmJSv c2U6 NTDlzBkvjHZuFvPhdDG0uO1w UHqsylytp9jpxlcdWkf3va14 oEOvi0F6nSB7S1SxxmQ9VXUp bGQg OsrwmQDAyE9fgkwqn1fjhdlp AaEhVPFmGZo6OAc3RURtgTyy FmUhND97UPO7XSZrasGoF0Lz LWFs bEwaYsB0k5Q2Jv8JK4PXHtoa X3NFQFZPMRwotLR+CK76nc59 E3CdKccxFfd9ZGEoKVG1eCN8 aD0n ADYyYYrnn3J2jJS4A1NufvXj ka6hm7qjJMUyHHjdA28xxMKh d3H8BFMwlDB3IOBquGhhHiQp aG93 Oyc+WSPsxWett6PqJzswy8ct a9zoaVi6MchhZDDnqrPpqYwu HGH2g6SnYm1oOAHruHB5gQM8 aD0i LuOeSmF2ALnlF657KoJdqAHe SfvkP66aW9PeoWA+PHRyPjx0 IMIpbJroHK2vH0NmREMxmgts bGVm iPqkMD2hFGHfuqneKXXueK4r UVBzD7o9McSoScG3JNzlA1Ke FVJqnvnmCe52rX3bMvOpTsM1 MGlu J4ZphmP8DGHlyQYjJHnpAAS0 U92hx5I1HRMiINUhHZU2sKU8 fX1ooYtdsqkwbZDbfQuvtiWt dGlj APjlTMskM531ILHosHtuAoZg ZGluZyBEYXRlOiAgMDUvMDcv MjAyNTwvdGQ+HGJoYYN6fCxg PSAn kXIeBCuyQp7rbKlahSjhFL0t CYVmoajgRVAufJ9oNPHznRYb bDvoOL0aZXSzlhnrd057TcBb MHB0 AWStjGCxW0GbsW0eYeOzKYHf TUQiR3BxkIZfAMhmG538XQpg UrC1OAZnwgQkU7OnGWMigYcs OiB0 n8J4Dz9Au8HyqedyM5EmwOIn LxHgDaviYOr0O2VbTcjtpKX+ OO62CCQjXY00CIm4QAT6nEwo PSdi PZTsW2PjlM7tUfNkCOHvGQIf Oyc+PHRhYmxlIHdpZHRoPScx WPBiJyWfaNqeGP1tGe8oCRMn LWNv iSctsLAdAwVuw6gvDSTaWXqc DY8azRahZ8NywGF5EKTfq3y0 Os83Z99dD5RtxNI+PGNvbCB3 aWR0 gT8eKpGfFoO3DRzhQ344XuPn tEAyHqlrj1far8edwBx3OiE1 HNMulpYkeUcpHFC3a6NyZt80 Y29s IHdpZHRoPSIxNSUiIHZhbGln zk1kpT3pXm8+PRMdmTY4aXF8 aQ3hDxYeDnK8DRjuR504TzBc cCIv Jprlp6ujn7trvHf0AwQlOPFt xrObyGgbODD6u6DlJv67Z4Ve bCdpf9OzIxg8gp99mNYge1K9 bGU9 M5AoFYAtujhomUEvlJbcCZ8b PJPwzsibPFZndG6vVAFzD2g1 QpWsQxZ9EEfzV6SeufS1JJZt bGQg HOGozJENoU1iaijpz1jcknak OdBdERNjITc6YEx6GMZncNrf VfAlWLY9MiZ0WZF7yOUbuS3u bGln jqqlwH2eIvv+SJD8kANiyXHX BI1jWfjeaGH+NVSpQIB6uEoh YVnuUORspD9gIPApN6y5UzHa LjA1 QCnxF8HytpI2KSJacMJmJRQz tKELqU4fvkikd2gocytzXeWw YRIcDGh8SJa7SCYulHrySvLw ZWZ0 IlE6QML6jHHfcP4mfIflsjin hQ5eMxz+MrhtnXwqAAP4LSa2 O9XnXsa1AIVgaCxkSX2uuNFo ZGlu Cf0yoKdxcHslHR2aWLUvzbaq s343MvXwq9ftAVUbyFOxWUur IXA2I88ci6V2ZLLtKZEvGTP8 dGV4 yU5wsRkakpdesHKggItcrwSr fYfhLAzrUOqdD583OJMzrWpl NhPeQMb7F7RwSxk1WPRexHxs ZT0n tGGiRFpqLc8xuFxrlVjoOW8v QZRftifbw170DwMrn6baZGBu tABhTIvvUML5E67kg9S2CRXg MDAw YMJ0nRO6bZ8ftOtfvceptXGu zYuyetYvrUjyBDshHXvqM456 TUDycJiyFiDopFd8A0FsWgy2 ZCBz iWbuYI0yzORcZEifWv6fnJoh tDneHQ1xRUBvfdqys032OrWl m6waEWPbrIPdHTahEBK0O88i b3I6 OYPoQNKkBQQ3kWL2iE1heSiy bjogbGVmdDsgdmVydGljYWwt WXqbZ687TOGcpBboKsUriPgv bnQg LHgsMEl5V5SfGqoskAZ+PC90 MNUqAG57sPGbxKSrn5xocOs7 LeTdQZYpHNB4rGpyRWjyo3Rb ZXIt W16joBVjf9H4SMGdvZuncONd IaUlaRU9qV8pBOvgpujgu8je rlloTqbbu4wajv21iY27A37a IHdp IGFaIVYkRMXnJMHbuTmnmz2c kZ3uKg1+NTXbpSI1fIA9cL9l ETKaIgY2OCprH351LfHskSUf Pjxj b9aal2eojNe5PuD0NOVvkiNj eXeyWEM5q5MbNx50N99uPZmv BFUtFNYvYNNcJAFikRfffk5b dG9w Ii8+OIAmhWH9kLB6dT0wQhXi XgI1BCswV583MwUoiVKwJzit M30oB4FqcKO+VYKsXiv8NRFs dHls ZD5vgXAdSJsfXr0qNAL4HdXc VhSuZDayY6AzPWIgitgwvmvf cML7RUFgKFMgrI83Ag0skGez MTBw hPDKbJ6exbluq0qydykyMyYb NGTfNKs8WHp1WWDjvNzhQmBg RXR5JbH3ZPG5lJDhfR6tpJaz bjog iV9mM8SdFYUfqdckNv98qG9w NtTiMjW9IMrtBtf+RkFSTUVS PEZEAUjJR9HmVlzSDM6XRX00 ZD48 pORxn3Y3rAO5O2ZvFXSsdqeu lmragWC8YPZkZEGnuO53mLVj UDbgVw4nw1E3b077IWTtWSIl aW47 Hc2geQjcTONbrTGIsQ5zkzzb y2jwhpmcQgPlPMQpXRy5EUv8 ODKbqXzsHbQmFAP8HyM0IFF4 aWNh wO6btMbpbynexL5rScc+MDIv JITcODp8SWicfSN+PHRkIHN0 uXxqNSypVWAoqW3bBLOwV9k4 OiAw IqE2EMivP0VwVFXbxpxlYy19 gM3fYxMqSmN6IQecU9AtdiX0 ZEDgxYKfSLnhSCX2R53qd6Q7 ICMw MEQoNLV5fPR5cJ3cgLlxhred bGVmdDsgdmVydGljYWwtYWxp T514FUHtsNiwSyK7JIesCNWu PC90 QQ76fYHxl6S8iJH4D9RrWTZm yagpdzhmyPM8BKSqIHMobB21 bEDiHPicOy0qm8U3z622OGHv MDUw cK15Uh8vdQkjMJRymCUPvS3u sintm4zgploaSfUiVCNrZBt9 KSq3NAVzyGvlGcYcALT9PhU2 ZXJ0 gQWmxS3beBusjjdwuC0tPvy+ XfJHNCxFOC52HZ46tOJgu3F2 kTI9J0SoMWCzpldfeummdST3 IDAu XNNggQ62iIBsLSccTr8wg6L1 e939DUPjMFGmaR69Ao1wsVtt MCZrrRUTuZ4mxlfpj7fzqbls IzAw JYXqWMx4NLk1KBNwwFttIbAc KQI2JqN4LMI7bZSasI1nnMqw jorvcM5yTec+SBS9QBQ7yqqh cnk8 M4FlEdpstEK+MF63ALPrSB73 rWCzxQFpu0fvcCp9FiSfYGVs MNI6qFgbFWqyv0VuOJNwU00g bGFw e8C9QZNkjOlpwUAmBmAetPH9 tE1zUWeahgfhd2fxpzheTcut g1czey18pY44W60kIEzoXFFz PSIz TUHhLHZeoYithp1nfG1dFm5+ EBTnvEU2bXE5iW6sFiQdJsP1 MNxuD528ZjNkxVQoAlwye7ee d2lk ePv6TwNuWCLggcGlgJyrKRI7 a4JoIg30B84xQOupSDHdUPFh FACfBANpbPsvfx6tiW9qTd4+ PC9j p5ntqf15tZ97fTH+PHRkIHN0 kLsbDMinBEUdoA8dASooXqU5 VINnXjOlpR73wNGvZRbaMe4l aWdo oMgsXG0aCOIseswfj165DgTa l7sxGQEluLToUAjiANQ2I01n y2V3KNMbRAHuGKH0eWO1nX7m bGln bjogbGVmdDsgdmVydGljYWwt FZkvS726DNBlvPsfVjCdyWVg R1yklhENTJ5iGnnxuUZ+PHRk IHN0 wSmdYFgjHXGqmG8aGPTuK9h0 BoVuPeZ3OXpxG6NproX0MZMx mOZxDZIfoPYEqU1daxcdb9gh cjog SqKnSBCuIEv1UDv9AKVduNrt LsCyXAZ2KxW2APU7lRDimR8c aGzmemgdnR6qXcw+RklOOjwv dGQ+ CEVgWZZ0rUdkAAzgJJKsqC0v HYNyS2v8OkCdDtS8QExaW3Cn wqW3OCWybOHgYQFlqFCMpX4w cztj o7nbhzzmHpZfIOInKMh2HSc1 PAChgWsnYcEhKSM0TjH6DQL0 uEQytV3sdJqslxsjeW6tSfx+ TVJO OjwvdGQ+WYHgIAM6qFreRRfq JMMxlF7jZLRfV3b0SxOrAuZ5 MVzrC3LuckG9CKKhtFEnXDIn NYBU gX8xurjwe5qksjxjAuJvQCUl MVl0UFc9UWWmbBboKfHaZEW6 SoO5FEK8rJQrxT1rpGpibsfj dG9w Oyc+WAR0VTD6GQ04KN22P9Lu PjwvdGFibGU+PHRhYmxlIHdp MOHnKHakZWEbRnUaiIqfPP8q Ym9y ZGV (more content not included)... [facility] HISTORY PHYSICALon HISTORY PHYSICAL HNO ID: [id number] Author: NESSA JENKINS APRN.HR RECRUITER Service: ? Author Type: Nurse Practitioner Type: H&P Filed: 12/11/2024 14:34 Note Text: [facility] HISTORY AND PHYSICAL EXAMINATION SERVICE DATE: 12/11/2024 SERVICE TIME: 1:53 PM PRIMARY CARE PHYSICIAN: Dionne Chambers DO REASON FOR VISIT: Vijaya Tinsley is a 29 year old female who is scheduled for CYSTOURETHROSCOPY W/INJECTION(S) FOR CHEMODENERVATION OF THE BLADDER (BOTOX) at the request of Dr. Dian Desai for consultation. My final recommendation will be communicated back to the requesting physician by way of shared medical record or letter. Assessment Patient has the following medical conditions which may affect kianna-operative course: PONV (postoperative nausea and vomiting) Assessment: states gets PONV with Anesthesia Asthma Assessment: childhood No inhaler use Lungs clear today Obesity, Class III, BMI >= 40 Assessment: Body mass index is 46.64 kg/m?. Neurogenic bladder Assessment: with Bladder Stimulator in place Diplegic cerebral palsy (HCC) Assessment: Following with Neurology Ambulates in wheelchair, states she can stand and pivot I - PHYSICAL EVALUATION AIRWAY Patient intubated: No. Tracheostomy tube not present Mallampati: II. TM distance: >3 FB. Neck ROM: full ROM without neurological symptoms. Mouth opening: adequate. Short neck: no. Thick neck: yes Najera present: no Lip Bite Test: I Microretrognathia/Micron agthia/Recessed Chin: No DENTAL Dental findings: teeth intact. II - ANESTHESIA PLAN Anesthetic plan additional comments: *PACC/TCI - anesthesia choice. Beta Delia Monitoring Plan Post Procedure Analgesic Plan PONV (postoperative nausea and vomiting) Assessment: states gets PONV with Anesthesia Asthma Assessment: childhood No inhaler use Lungs clear today Obesity, Class III, BMI >= 40 Assessment: Body mass index is 46.64 kg/m?. Neurogenic bladder Assessment: with Bladder Stimulator in place Diplegic cerebral palsy (HCC) Assessment: Following with Neurology Ambulates in wheelchair, states she can stand and pivot ANESTHESIA FINDINGS: Intubation History: No history of difficult intubation. No abnormal airway history Significant Anesthesia Considerations: potential postop nausea/vomiting Airway History: No history of difficult airway No abnormal airway history Abad Activity Status Index: METS: Walk indoors, such as around the house (1.75 METs) Do light work around the house, such as dusting or washing dishes (2.70 METs) Take care of self; that is eating, dressing, bathing, using the toilet (2.75 METs) DASI Score: 7.2 (Spastic Paraplegia ) Patient denies any chest pain or undue shortness of breath with the above physical activity. Patient is limited most or all of the time (uses scooter, mobility device) (presents in wheelchair). STOP-Bang Score: BMI greater than 35 kg/m2 Denies snoring loudly Denies feeling tired, fatigued, or sleepy during the daytime Has not been observed to stop breathing or choking/gasping during sleep Denies having high blood pressure Patient 50 years old or younger Does not have a large neck Non-male patient STOP-Bang Score: 1 HAC6DS6-BVAs Score: Age: <65 Sex: female CHF history: No Hypertension history: No Stroke/TIA/thromboemboli sm history: No Vascular disease history: No Diabetes history: No ZHP1PO4-HUWk Score: 1 ARISCAT Score: Age: <=50 Preoperative SpO2: >=96% Respiratory infection in the last month: No Preoperative anemia: Yes Duration of surgery: <2 hrs Emergency procedure: No ARISCAT Score: 11 Prepared for surgery: This patient is optimally prepared for surgery. CONSULTS: Patient does not require consults for optimization at this time. 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 Patient has bladder stimulator in placed. She's doing better with interstim but still has UUI that is bothersome. Discussed doing dual therapy with adding medication or botox. She's trialed gemtessa which helps but not completely therefore would like to do botox. REVIEW OF SYSTEMS: PAIN ASSESSMENT: General: No weight loss, malaise or fevers. Neuro: No history of TIA's, stroke, MORTGAGE COUNSELOR tumor, impaired sensorium, hemiplegia, paraplegia or quadraplegia. No neurological symptoms or problems. +Spastic Paraplegia Respiratory: No history of current cough or dyspnea, or pneumonia in the past 6 weeks. No history of respiratory/pulmonary symptoms or problems. Cardiovascular: No history of HTN requiring medication, no history of angina, CHF, RI, cardiac surgery or (more content not included)... Normal [facility]10[facility]20[facility] (UR[facility]MN[facility] -------- VIJAYA TINSLEY ([id number]) 1995 F Date Time Provider Department 12/10/24 DIAN WIGGINS During your visit today, we recorded the following information about you: Sita Conteh RN 12/10/2024 10:09 AM Signed Pt needs to reschedule surgery on 12/12 due to transportation. She requests 12/19 and needs to be the last case of the day. Sita Conteh RN Allergies As of Date: 12/10/2024 Noted Allergy Reaction GRASS POLLEN-BERMUDA, STANDARD 08/08/2008 16 - Unknown AMOXICILLIN 01/15/2022 6 - Diarrhea VANCOMYCIN 06/30/2019 4 - Hives Comments: Burning sensation CETIRIZINE 03/16/2013 4 - Hives 14 - Other: See Comments 2 - Rash Comments: hives Date Reviewed: 12/04/2024 Reviewed by: Dayanara Frazier MA - Fully Assessed Prescriptions as of 12/10/2024 - vibegron (GEMTESA) 75 mg tablet Take 1 tablet by mouth once daily. - tirzepatide, weight loss (ZEPBOUND) 2.5 mg/0.5 mL pen injector Inject 2.5 mg subcutaneously one time a week. - gabapentin (NEURONTIN) 300 mg capsule Take 1 capsule by mouth three times a day for 180 days. 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] 01/24/2017 Fatty (change of) liver, not elsewhere classifi*11/27/2021 Class 3 severe obesity in adult (HCC) [E66.813] 06/11/2022 Obesity, Class III, BMI >= 40 [E66.813] 06/21/2022 Moderate protein-calorie malnutrition (HCC) [E4*02/03/2023 Encounter Status:Closed by SITA CONTEH on 12/10/24 Normal [facility] HCG ( test) Kiara maldonado Ql (U)on 12-07-2024 HCG ( test) Ql (U) Urine human chorionic gonadotropin (hCG) detection by immunoassay NEGATIVE [facility] HCG ( test) Ql (U) Negative NEGATIVE [facility] Laboratory - Chemistry and C hemistry - challengeon 12-07-2024 Bilirubin Ql (U) Negative NEGATIVE [facility] Glucose (U) [Mass/Vol] Negative NEGATIVE [facility] Ketones Ql (U) Negative NEGATIVE [facility] pH (U) 6.0 [pH] 5.0-9.0 [facility] Specific gravity (U) [Rel density] 1.025 1.005-1.02 5 [facility] Urobilinogen Qn (U) 0.2 {Ion'U}/dL 0.2-1.0 [facility] Laboratory - Specimen inform ationon 12-07-2024 Appearance (U) CLEAR CLEAR [facility] Color (U) LT. YELLOW YELLOW [facility] Laboratory - Urinalysison Leukocyte esterase Test strip Ql (U) TRACE Abnormal NEGATIVE [facility] Mucus Ql (Urine sed) SMALL Abnormal NONE SEEN [facility] Nitrite Ql (U) Negative NEGATIVE [facility] Protein Ql (U) Negative NEG/TRACE [facility] No Panel Informationon 12-07 Urine Bacteria SMALL #/HPF Abnormal NONE SEEN [facility] Urine Culture Reflexed [facility] Urine Occult Blood LARGE Abnormal NEGATIVE [facility] Urine Other Casts NONE SEEN #/LPF NONE SEEN [facility] Urine Other Crystals None Seen #/HPF None Seen [facility] Urine RBC 0-2 #/HPF 0-2 [facility] Urine Squamous Epithelial Cells RARE #/LPF NONE/RARE [facility] Urine WBC 2-5 #/HPF Abnormal NONE SEEN [facility] Urine Cultureon 12-07-2024 Bacteria identified Cx Nom (U) 40,000 colonies/ml mixed bacterial skin contaminants 2 Days PERFORMED BY: [facility] [address] [place] [address] PATHOLOGIST MAINTENANCE SUPERVISOR LEAH GOSS M.D. Normal [facility] Comment on above: Performed By: #### C UU #### [facility] [address] Urine cultureOrdered By: Odette Escobedo on 12-07-2024 Bacteria identified Cx Nom (U) Urine culture [facility] Bacteria identified Cx Nom (U) 2 Days [facility] CNOVon 12-04-2024 CNOV Office Visit (UROLIN ) -------- VIJAYA TINSLEY ([id number]) 1995 F Date Time Provider Department 12/04/24 1:00 PM DIAN WIGGINS During your visit today, we recorded the following information about you: Dian Wiggins MD 12/04/2024 2:03 PM Signed [facility]IC[facility] RECONSTRUCTIVE SURGERY HISTORY OF PRESENT ILLNESS: Vijaya Tinsley is a 29 year old female with neurogenic 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 07/27/22 visit, fell POD#1 on her butt and had less efficacy since then. Today, she voids q2.5-3hr, ISMAEL with program 5 @0.7 during trial period with very little leakage. She increased to 0.9mA on program 5 yesterday with little improvement. Xray ordered to r/o lead migration. Switched to program A (0+, 1-) at 0.3mA, felt at buttocks no leg. From my note on 07/27/22: Program 5 (3+, 0 and 1-) at 0.9mA --> decreased to 0.8 mA, felt in buttock midline Program 1 (3+, 0-) --> vagina 0.6mA, felt down right leg Program 2 (3+, 1-)--> buttock 0.5mA, no leg Program 3(0+, 2-) --> buttock 0.7mA, no leg Program 4 (0-, 3-)--> buttock 1.3mA, no leg Program 6 (3+, 2 and 1-)-->1 mA upper back Program 7(0+, 2 and 3-)--> 0.9mA buttock, no leg Program A (0+, 1-)--> 0.3mA, buttock, no leg Impedence good 09/10/22 visit, on program 7. voids q3.5hrs-5hrs, UI (2-3pads but sometime soaked something, but it is better than before), can hold it for 45mins before it was not at all. Reports some pain during charging at site of IPG if it's at the wrong location that lasts a few seconds. 11/16/22 visit, programming not working as well. Currently on program 7; 0.8mA. Not as good as during trial. Recent constipation, now taking senna prn with relief. Voids q3-4hrs, UUI (3pads/d, a little bit soaked). Will have rep reach out to assist with programming. Possible xray if no improvement with new program. Today, program 6 @0.7mA . Reports she has good day and bad days with symptoms but overall has 75-80% improvement. Continues with vesicare. Voids q2-4hrs. Feels like her bladder doesn't full empty at times. UUI worse in the morning, Will wake up wake some days. 3pads/d.Experiencing constipation, states it's better but not great. Reports trouble with device connecting to the bariatric program coordinator. Reports right leg pain with lifting for 1 month 11/25/23 visit per Mary MCKENZIE, program 6 no longer working. Remain on program A, d/c mirabegron, start gemtesa 75mg. 09/07/24 VV per Mary MCKENZIE, symptoms varied while on gemtesa 75 mg; some days better than others. Reports she is urinating >4 times a day, and 0 times at night. Reports she is incontinent 4 times during the day. Change to program B. Continue gemtesa 75mg. Est. With Dr Valerio in [place] after moving there. Today, states her stimulator has not been working well since knee surgery on 11/23. Currently has a +Ucx (11/29 E coli- tx bactrim), feels UTI symptoms (dysuria, headache, nauseous) have improved since completing bactrim. States every time she turns off interstim for surgery, she has a hard time getting it to turn on and function properly. Feel the therapy has been intermittent in nature. Reports 2-3UTIs/year. Would like to know if she can have something to prevent UTIs. + ISMAEL =UUI 2-3 episodes/d. 2-3 pads/d. +constipation, reports her Urologist in [place] said she has neurogenic bowel based on symptoms of not fully emptying bowels. Nilo works but still has UI. *Program B (0-, 1-, 3-, 4+), 0.4mA, felt right buttock - current program and reports doing well on this program Impedance: good Battery 100% HISTORIES: PAST MEDICAL HISTORY PAST MEDICAL HISTORY Diagnosis Date Class 3 severe obesity in adult (HCC) 06/11/2022 PAST SURGICAL HISTORY PAST SURGICAL HISTORY Procedure Laterality Date ANKLE SURGERY HX Left Left ankle infection KNEE SURGERY HX ORAL SURGERY PROCEDURE root canal FAMILY HISTORY FAMILY HISTORY Problem Relation Age of Onset Anesthesia Problems No Family History SOCIAL HISTORY Social History Tobacco Use Smoking status: Never Smokeless tobacco: Never Substance Use Topics Alcohol use: Not Currently Drug use: Never MEDICATIONS: Current Outpatient Medications Medication Sig phenazopyridine (PYRIDIUM) 200 mg tablet Take 1 tablet by mouth three times a day as needed for up to 5 days. sulfamethoxazole-trimeth oprim (BACTRIM DS) 800-160 mg per tablet Take 1 tablet by mouth two times a day for 5 days. vibegron (GEMTESA) 75 mg tablet Take 1 tablet by mouth once daily. tirzepatide, weight loss (ZEPBOUND) 2.5 mg/0.5 mL pen injector Inject 2.5 mg subcutaneously one time a week. gabapentin (NEURONTIN) 300 mg capsule Take 1 capsule by mouth three times a day for 180 days. (more content not included)... Normal [facility] Coding Queryon 12-04-[address] Travis -- You mention within the body of the note that the medial meniscus was stable but also state that you did a partial medial meniscectomy. You do not list that as a final diagnosis. Please review the Operative Note and make any appropriate changes as needed. Thanks, Danica Holderr (I will be out of the office ) [Electronically Signed on: 12/10/2024 14:57 EDT] HERMILO TRAVIS DO [Verified on: 12/10/2024 14:57 EDT] HERMILO TRAVIS DO [Transcribed on: 12/04/2024 14:16 EDT] [facility] Bacteria Ur Culton 5 Bacteria identified Cx Nom (U) CULTURE, URINE: Mixed microbiota, including predominantly: ORGANISM ID: 1 >=100,000 CFU/ml Escherichia coli ORGANISM ID: 1 (ESCHERICHIA COLI) ANTIBIOTIC INTERPRETATION GINA STATUS REFERENCE RANGE Ampicillin S <=2 F Susceptible <=8 , Intermediate >8 , Resistant >16 Cefazolin S <=4 F Susceptible 0-16 , Intermediate <0 or >16 , Resistant >16 For uncomplicated urinary tract infections, cefazolin results can be used to predict susceptibility or resistance to cephalexin. Ceftriaxone S <=1 F Susceptible <=1 , Intermediate >1 , Resistant >=4 Cefepime S <=1 F Susceptible <=2 , Susceptible-Dose Dependent >2 , Resistant >=16 Ertapenem S <=0.5 F Susceptible <=0.5 , Intermediate >.5 , Resistant >1 Meropenem S <=0.25 F Susceptible <=1 , Intermediate >1 , Resistant >2 Ampicillin/Sulbact S <=2 F Susceptible <=8 , Intermediate >8 , Resistant >16 Piperacillin/Tazobac S <=4 F Susceptible <16 , Susceptible-Dose Dependent >=16 , Resistant >=32 Gentamicin S <=1 F Susceptible <=2 , Intermediate >2 , Resistant >=8 Tobramycin S <=1 F Susceptible <4 , Intermediate >=4 , Resistant >=8 Trimeth sulfameth S <=20 F Susceptible <=40 , Resistant >40 Ciprofloxacin S <=0.25 F Susceptible <0.5 , Intermediate >=.5 , Resistant >=1 Nitrofurantoin S <=16 F Susceptible <=32 , Intermediate >32 , Resistant >64 Abnormal [facility] Comment on above: Performed By: #### 6 30-4 #### [facility] CLIA [id number] [address] [place] [address] [facility] CNPNon 11-29-2024 CNPN Telephone (UROLAV) -------- VIJAYA TINSLEY ([id number]) 1995 F Date Time Provider Department 11/29/24 OLGA PRYOR UROMARCIEV During your visit today, we recorded the following information about you: Luis Ulloa, RN 11/29/2024 10:45 AM Signed Called patient, she states she has been having no feeling from the interstim since her surgery on her knee for scar tissue removal on 11/23/2024 at [facility]. She states she is having urgency and frequency [id number] with burning. Mom is going to help her collect a urine sample at home and then drive it to a [facility] lab chilled in a cooler due to distance from patients house. Order for UC in per Olga. Patient states she does take Gemtesa but it only works sometimes. She has tried many settings on her interstim with no luck. Patient aware of new prescriptions submitted to pharmacy. Allergies As of Date: 11/29/2024 Noted Allergy Reaction GRASS POLLEN-BERMUDA, STANDARD 08/08/2008 16 - Unknown AMOXICILLIN 01/15/2022 6 - Diarrhea VANCOMYCIN 06/30/2019 4 - Hives Comments: Burning sensation CETIRIZINE 03/16/2013 4 - Hives 14 - Other: See Comments 2 - Rash Comments: hives Date Reviewed: 08/30/2024 Reviewed by: Sylvia Brady MD - Fully Assessed Primary Visit Diagnosis:Acute cystitis without hematuria [N30.00] Order(s):URINALYSIS, WITH MICROSCOPIC [SQUAWMIC] Order #: [id number]. #:[id number] BACTERIAL CULTURE, URINE [SQURCUL] Order #: [id number]. #:[id number] phenazopyridine (PYRIDIUM) 200 mg tabletTake 1 tablet by mouth three times a day as needed for up to 5 days.Disp: 15 tabletRfl: 0 sulfamethoxazole-trimeth oprim (BACTRIM DS) 800-160 mg per tabletTake 1 tablet by mouth two times a day for 5 days.Disp: 10 tabletRfl: 0 Prescriptions as of 11/29/2024 - phenazopyridine (PYRIDIUM) 200 mg tablet Take 1 tablet by mouth three times a day as needed for up to 5 days. - sulfamethoxazole-trimeth oprim (BACTRIM DS) 800-160 mg per tablet Take 1 tablet by mouth two times a day for 5 days. - vibegron (GEMTESA) 75 mg tablet Take 1 tablet by mouth once daily. - tirzepatide, weight loss (ZEPBOUND) 2.5 mg/0.5 mL pen injector Inject 2.5 mg subcutaneously one time a week. - gabapentin (NEURONTIN) 300 mg capsule Take 1 capsule by mouth three times a day for 180 days. 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 SULFAMETHOXAZOLE 800 MG-TRIMETHOPRIM* 10 t* 0 11/29/2024 12/04/2024 Route: ORAL Sig: Take 1 tablet by mouth two times a day for 5 days. Encounter Status:Closed by LUIS ULLOA on 11/29/24 Normal [facility] Urinalysis complete panel (U )on 11-29-2024 BACTERIA UL >9821 High Negative [facility] Comment on above: Order Comment: Speci men Type: URINE SPECIMENOrdering Facility: [facility] Address: [address] [place] [address] Performed By: #### 6 30-4 #### [facility] CLIA [id number] [address] [place] [address] [place] Bilirubin Ql (U) Negative Normal Negative [facility] Comment on above: Order Comment: Speci men Type: URINE SPECIMENOrdering Facility: [facility] Address: [address] [place] [address] Performed By: #### 6 30-4 #### [facility] CLIA [id number] [address] [place] [address] [place] Clarity (Unsp spec) Turbid Abnormal Clear [facility] Comment on above: Order Comment: Speci men Type: URINE SPECIMENOrdering Facility: [facility] Address: [address] [place] [address] Performed By: #### 6 30-4 #### [facility] CLIA [id number] [address] [place] [address] [place] Color (U) Yellow Normal Yellow [facility] Comment on above: Order Comment: Speci men Type: URINE SPECIMENOrdering Facility: [facility] Address: [address] [place], [place] [address] Performed By: #### 6 30-4 #### [facility] CLIA [id number] [address] [place] [address] [place] Epithelial cells LM.HPF (Urine sed) [#/Area] Few Normal [facility] Comment on above: Order Comment: Speci men Type: URINE SPECIMENOrdering Facility: [facility] Address: [address] [place] [address] Performed By: #### 6 30-4 #### [facility] CLIA [id number] [address] [place] [address] [place] Glucose Test strip (U) [Mass/Vol] Negative Normal Negative [facility] Comment on above: Order Comment: Speci men Type: URINE SPECIMENOrdering Facility: [facility] Address: [address] [place] [address] Performed By: #### 6 30-4 #### [facility] CLIA [id number] [address] [place] [address] [place] Hemoglobin Ql (U) 1+ Abnormal Negative [facility] Comment on above: Order Comment: Speci men Type: URINE SPECIMENOrdering Facility: [facility] Address: [address] [place] [address] Performed By: #### 6 30-4 #### [facility] CLIA [id number] [address] [place] [address] [place] Hyaline casts (Urine sed) [#/Area] 1-3 /LPF Abnormal 0 /LPF [facility] Comment on above: Order Comment: Speci men Type: URINE SPECIMENOrdering Facility: [facility] Address: [address] [place] [address] Performed By: #### 6 30-4 #### [facility] CLIA [id number] [address] [place] [address] [place] Ketones Ql (U) Negative Normal Negative [facility] Comment on above: Order Comment: Speci men Type: URINE SPECIMENOrdering Facility: [facility] Address: [address] [place] [address] Performed By: #### 6 30-4 #### [facility] CLIA [id number] [address] [place] [address] [place] Leukocyte esterase Test strip Ql (U) 3+ Abnormal Negative [facility] Comment on above: Order Comment: Speci men Type: URINE SPECIMENOrdering Facility: [facility] Address: [address] [place] [address] Performed By: #### 6 30-4 #### [facility] CLIA [id number] [address] [place] [address] [place] Nitrite Ql (U) Positive Abnormal Negative [facility] Comment on above: Order Comment: Speci men Type: URINE SPECIMENOrdering Facility: [facility] Address: [address] [place] [address] Performed By: #### 6 30-4 #### [facility] CLIA [id number] [address] [place] [address] [place] pH (U) 7.5 [pH] Normal <8.5 [facility] Comment on above: Order Comment: Speci men Type: URINE SPECIMENOrdering Facility: [facility] Address: [address] [place] [address] Performed By: #### 6 30-4 #### [facility] CLIA [id number] [address] [place] [address] [place] Protein (U) [Mass/Vol] 2+ Abnormal Negative [facility] Comment on above: Order Comment: Speci men Type: URINE SPECIMENOrdering Facility: [facility] Address: [address] [place] [address] Performed By: #### 6 30-4 #### [facility] CLIA [id number] [address] [place] [address] [place] RBC LM.HPF (Urine sed) [#/Area] 6-10 /HPF Abnormal 0-2 /HPF [facility] Comment on above: Order Comment: Speci men Type: URINE SPECIMENOrdering Facility: [facility] Address: [address] [place] [address] Performed By: #### 6 30-4 #### [facility] CLIA [id number] [address] [place] [address] [place] Specific gravity (U) [Rel density] 1.020 Normal 1.005-1.03 0 [facility] Comment on above: Order Comment: Speci men Type: URINE SPECIMENOrdering Facility: [facility] Address: [address] [place] [address] Performed By: #### 6 30-4 #### [facility] CLIA [id number] [address] [place] [address] [place] Urobilinogen Ql (U) 0.2 EU/dL Normal 0.2-1.0 EU/dL [facility] Comment on above: Order Comment: Speci men Type: URINE SPECIMENOrdering Facility: [facility] Address: [address] [place] [address] Performed By: #### 6 30-4 #### [facility] CLIA [id number] [address] [place] [address] [place] WBC LM.HPF (Urine sed) [#/Area] /[HPF] Abnormal 0-5 /HPF [facility] Comment on above: Order Comment: Speci men Type: URINE SPECIMENOrdering Facility: [facility] Address: [address] [place] [address] Performed By: #### 6 30-4 #### [facility] CLIA [id number] [address] [place] [address] [place] Yeast.budding LM.HPF (Urine sed) [#/Area] Present Abnormal None Seen [facility] Comment on above: Order Comment: Speci men Type: URINE SPECIMENOrdering Facility: [facility] Address: [address] [place] [address] Performed By: #### 6 30-4 #### [facility] CLIA [id number] [address] [place] [address] [place] Consent Formson 11-26-2024 Consent Forms [id number] IFF Normal [facility] MAGR Intraoperative Recordon 11-26-2024 MAGR Intraoperative Record MAGR Intra-Op Record Summary Primary Physician: HERMILO TRAVIS DO Finalized Date/Time: 11/26/24 11:33:58 Pt. Name: VIJAYA TINSLEY/Sex: 1995 FEMALE Med Rec #: [id number] Physician: HERMILO TRAVIS DO Financial #: [id number] Pt. Type: D Room/Bed: / Admit/Disch: 11/23/24 12:30:34 - 11/23/24 17:21:00 Institution: Case Times MAGR Entry 1 Patient In Room Time 11/23/24 14:29:00 Out Room Time 11/23/24 15:19:00 Anesthesia Start Time 11/23/24 14:29:00 Stop Time 11/23/24 15:19:00 Surgery Start Time 11/23/24 14:56:00 Stop Time 11/23/24 15:15:00 Last Modified By: Mindy Sofia RN 11/23/24 15:20:02 Case Attendance MAGR Entry 1 Entry 2 Entry 3 Case Attendee HERMILO TRAVIS David DO Kokinda, Diane RN Role Performed Surgeon - Primary Anesthesiologist of Byproducts Extractor Record Time In 11/23/24 14:50:00 11/23/24 14:29:00 11/23/24 14:29:00 Time Out 11/23/24 15:08:00 11/23/24 15:19:00 11/23/24 15:19:00 Procedure Arthroscopy Knee(Right) Arthroscopy Knee(Right) Arthroscopy Knee(Right) Last Modified By: Mindy Sofia RN, Diane RN Kokinda, Diane RN 11/23/24 15:19:38 11/23/24 15:19:38 11/23/24 15:19:38 Entry 4 Entry 5 Case Attendee Melody Mar Kelly LEAD INJECTION MOLD TECHNICIAN LEAD INJECTION MOLD TECHNICIAN Role Performed Director Of Safety Scrub Personnel Time In 11/23/24 14:29:00 11/23/24 14:29:00 Time Out 11/23/24 15:19:00 11/23/24 15:19:00 Procedure Arthroscopy Knee(Right) Arthroscopy Knee(Right) Last Modified By: Mindy Sofia RN, Diane RN 11/23/24 15:19:38 11/23/24 15:19:38 Surgical Procedures MAGR Pre-Care Text: A.20 Verifies operative procedure, surgical site, and laterality Im.150 Develops individualized plan of care Entry 1 Procedure Arthroscopy Knee Primary Procedure Yes Primary Surgeon HERMILO TRAVIS DO Modifiers Right Surgeon Comment RIGHT KNEE ARTHROSCOPY, Start 11/23/24 14:56:00 EXCISION OF PLICA MEDIAL PATELLOFEMORAL JOINT Stop 11/23/24 15:15:00 Anesthesia Type General Surgical Service Orthopedics Wound Class Clean Technique Details Closure Technique Primary Entire procedure No was performed via laparoscope or robotic assistance Last Modified By: Mindy Sofia RN 11/23/24 15:19:42 Post-Care Text: O.730 The patient's care is consistent with the individualized perioperative plan of care General Case Data MAGR Pre-Care Text: A.350.1 Classifies surgical wound Entry 1 Case Information OR MAGR OR 01 Case Level Level 4 Wound Class Clean Specialty Orthopedics ASA Class 3 Diagnosis Preop Diagnosis RIGHT KNEE INTERNAL Postop Same As Preop Yes DERANGEMENT Postop Diagnosis RIGHT KNEE INTERNAL DERANGEMENT Blunt or No Is the procedure No penetrating injury considered occured prior to Emergent/Urgent? the start of the procedure: Last Modified By: Mindy Sofia RN 11/23/24 14:59:05 Post-Care Text: O.760 Patient receives consistent and comparable care regardless of the setting Time Out MAGR Entry 1 Procedure(s) Arthroscopy Knee(Right) Time Out Checklist Verifications Team Introductions Yes Confirmed Identity, Yes Completed Procedure, Incision Site, and Consent(s) Presence of Yes Site Verification, Yes Necessary Site Marking, Site Procedural Marking Equipment, Devices, Alternative, and/or and Implants Site Marking Verified Exception in Accordance with Facility Policy Anesthesia Review Antibiotic Received Yes All Anesthesia Yes Within an Concerns Addressed Appropriate Time Interval Prior to Surgical Incision Surgeon Review Anticipated Blood Yes Expected Case Yes Loss Risk Addressed Duration Addressed Critical and Yes Non-Routine Steps to be Performed Addressed Nurse Review Equipment Yes Fire Risk Yes Checks/Concerns Assessment Addressed Completed and Interventions Performed Diagnostic and Yes Sterilization n/a Radiological Test Concerns Addressed Results Displayed are Appropriate and Labeled Other Concerns n/a Addressed Time Out Leeanna Simmons DO, Time Out Time 11/23/24 14:55:00 Participants Mindy Sofia RN, Lexy Bellamy LEAD INJECTION MOLD TECHNICIAN, Melody Mar CST, HERMILO TRAVIS DO Last Modified By: Mindy Sofia RN 11/23/24 14:57:38 Patient Positioning MAGR Pre-Care Text: A.280 Identifies baseline musculoskeletal status Im.40 Positions the patient Im.80 Applies safety devices Entry 1 Procedure Arthroscopy Knee(Right) Body Position Supine Left Arm Position Extended on padded arm Right Arm Position Extended on padded arm board board Left Leg Position Dangling Right Leg Position Dangling Feet Uncrossed? Yes Press Points Checked Yes Positioning Device Pillow, Safety Strap Outcome Met (O.80) Yes Last Modified By: Mindy Sofia RN 11/23/24 13:06:20 Post-Care Text: E.290 Evaluates musculoskeletal status O.80 Patient is free from signs and symptoms of injury related to positioning Skin Prep MAGR (more content not included)... [facility] Telemetry Stripson Telemetry Strips [id number] IFF [facility] Anesthesia Noteon 11-23-2024 Anesthesia Note Patient: LION TINSLEY Age: 29 years Sex: FEMALE : 1995 Associated Diagnoses: None Author: Leeanna Simmons DO Postoperative Information Post Operative Note: Post Anesthesia Care Unit. Physical Examination Vital Signs 11/23/2024 15:15 EDT Heart Rate Monitored 88 bpm bpm Respiratory Rate 12 br/min br/min SpO2 99 % % 11/23/2024 15:12 EDT Systolic Blood Pressure 85 mmHg mmHg Diastolic Blood Pressure 47 mmHg mmHg Pain assessment: Self-reports no pain. General: Alert and oriented, Emotional and Crying. Just feels sad. . Respiratory: Respirations are non-labored. Cardiovascular: Normal rate, Regular rhythm. Neurologic: Alert, Oriented. Review / Management Condition: Stable. Assessment Anesthetic outcome No anesthetic complications noted. Plan Transfer/ Discharge: Patient can be discharged from PACU when criteria met. Condition good. [Electronically Signed on: 11/23/2024 15:35 EDT] Leeanna Simmons DO [Verified on: 11/23/2024 15:35 EDT] Leeanna Simmons DO Normal [facility] Anesthesia Note Patient: LION TINSLEY Age: 29 years Sex: FEMALE : 1995 Associated Diagnoses: None Author: Leeanna Simmons DO Preoperative Information Anesthesia history: Patient history: No difficult intubation, No malignant hyperthermia. Family history: No malignant hyperthermia, No prior anesthesia problems. Review of Systems Constitutional: Negative. Eye Ear/Nose/Mouth/Throat Respiratory: No shortness of breath, No cough. Cardiovascular: No chest pain. Gastrointestinal: No heartburn. Musculoskeletal: Spastic Paraplegia. Ambulates with braces on legs, crutches, or a walker. . Neurologic: Alert and oriented X4. 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 / SNOMED CT 5362995473 / Confirmed Histories Family History: No family history items have been selected or recorded. Procedure history: Nerve stimulator ([id number]). Comments: 11/23/2024 12:59 YESSIT - Ange aVnessa RN for bladder 11/13/2024 8:49 EDT - Abena Wesley RN Low back Arthroscopy of knee ([id number]). Comments: 11/13/2024 8:48 YESSIT Abena Cruz RN Right x2 Incision and drainage of wound ([id number]). Comments: 11/13/2024 8:59 YESSIT - Abena Wesley RN Left ankle Social History Electronic Cigarette/Vaping Assessment Electronic Cigarette Use: Never. Alcohol Assessment Use: Current. Wine, 1-2 times per year Tobacco Assessment Never tobacco user Tobacco Use:. Substance Abuse Assessment Substance use: Never. . Social & Psychosocial Habits Alcohol 11/13/2024 Alcohol Use: Current Type: Wine Frequency: 1-2 times per year Substance Use 11/13/2024 Substance use: Never Tobacco 11/13/2024 Smoking tobacco use: Never tobacco user Electronic Cigarette/Vaping 11/13/2024 Electronic Cigarette Use: Never . Physical Examination Vital Signs (last 24 hrs) Last Charted Temp Temporal 36.6 DegC (NOV 23 12:40) Heart Rate Peripheral 92 bpm (NOV 23 12:40) Resp Rate 16 br/min (NOV 23 12:40) SBP H 127 mmHg (NOV 23 12:46) DBP H 82 mmHg (NOV 23 12:46) General: Alert and oriented, No acute distress. Airway: Mallampati classification: II (soft palate, fauces, uvula visible). Temporomandibular joint mobility: Good. Mouth: Adequate opening. Neck: Full range of motion. Respiratory: Lungs are clear to auscultation, Respirations are non-labored. Cardiovascular: Normal rate, Regular rhythm. Neurologic: Alert, Oriented. Review / Management Laboratory Results Plan [place] [employer]esthesiologists (ASA) physical status classification: Class III. Anesthetic Preoperative Plan Anesthesia: General. . Anesthetic plan, risks, benefits, and alternatives discussed with the patient and/or family. Risks discussed: nausea, vomiting, sore throat, serious complications. Patient verbalized understanding. Informed consent was given. Consent was signed by the patient. [Electronically Signed on: 11/23/2024 14:12 EDT] Leeanna Simmons DO [Verified on: 11/23/2024 14:12 EDT] Leeanna Simmons DO Normal [facility] Inpatient Patient Summaryon 11-23-2024 Inpatient [place] [address] Patient Discharge Instructions Name: VIJAYA TINSLEY : 1995 Patient Address: [address] [place] [address] Primary Care Provider: Name: DIONNE CHAMBERS After you are discharged if you find you have any questions, please, call [phone] ext [phone] to speak to a nurse. Discharge Diagnosis: Chondromalacia of patella, right Prescription Information: If you have been given a prescription for narcotics, seek immediate medical attention if you have any difficulty breathing or any sudden status changes such as confusion and sleepiness. If you or anyone you know is experiencing suicidal thoughts, mental health, alcohol and/or drug addiction problems; contact the [facility] 28/02 Crisis Hotline -Text 4HQSS af [id number]. If you received any narcotics, sedation, or any other medication that causes drowsiness for the next 24 hours, unless otherwise directed: ? Do not drive a car. ? Do not operate machinery such as power tools, lawn mowers, drills, sewing machines, or stoves ? Avoid alcoholic beverages and drugs for allergies, nerves, or sleep ? Do not make important personal or business decisions or sign any legal documents [facility] would like to thank you for allowing us to assist you with your healthcare needs. The following includes patient education materials and information regarding your injury/illness. VIJAYA TINSLEY has been given the following list of follow-up instructions, prescriptions, and patient education materials: Follow-up Instructions With: Address: Camacho: Markie Segura [address] [place] [address], [address] [place], [place] [id number] Business (1) In 15 days 12/07/2024 Medications During the course of your visit, your medication list was updated with the most current information. The details of those changes are reflected below: New Medications Printed Prescriptions acetaminophen-hydrocodon e ([place] 5 mg-325 mg oral tablet) 1 tab(s) Oral (given by mouth) every 6 hours. as needed as needed for pain. Refills: 0. Medications to Continue That Have Not Changed Other Medications triamcinolone topical (triamcinolone 0.1% topical cream) 1 jessie Topical (on the skin) 2 times per day as needed rash. vibegron (Gemtesa 75 mg oral tablet) 1 tab(s) Oral (given by mouth) every day. It is important to always keep an active list of medications available so that you can share with other providers and manage your medications appropriately. As an additional courtesy, we are also providing you with your final active medications list that you can keep with you. acetaminophen-hydrocodon e ([place] 5 mg-325 mg oral tablet) 1 tab(s) Oral (given by mouth) every 6 hours. as needed as needed for pain. Refills: 0. triamcinolone topical (triamcinolone 0.1% topical cream) 1 jessie Topical (on the skin) 2 times per day as needed rash. vibegron (Gemtesa 75 mg oral tablet) 1 tab(s) Oral (given by mouth) every day. Take only the medications listed above. Contact your doctor prior to taking any medications not on this list. Diet & Activity Patient Activity Level: As Tolerated Patient Diet: Regular Patient Activity Restrictions: Discontinue Alcohol Use, No driving, No heavy lifting, Stop Smoking Comment: Patient education materials, if any, will display below Arthroscopic Surgery Discharge Instructions 1.) Keep ice on your knee after surgery. You may use the ice bag provided to you by the hospital or one from home. The ice should be applied at least 3 times a day for 20 minute intervals. 2.) Keep your knee elevated above the level of your hear. You may prop your leg up on pillows as long as the knee is higher than your heart. 3.) Move your knee. Please, do not be afraid to move the knee joint. It will be stiff and sore in the beginning, but this will slowly improve with healing time 4.) Wiggle your toes and exercise your ankle. These muscle pumps with help to take the swelling out of your knee and enhance circulation to the leg. Wiggle your toes and exercise your ankle for ten minutes every hour that you are awake. 5.) You may remove all bandages from your knee after 3 days. There may be some blood and drainage on the bandages, this is to be expected. You may clean the puncture sites with hydrogen peroxide and a cotton swab three times a day. Keep band aids over the puncture sites until scabbed over. 6.) If don't already have them, you will be issued a walker or crutches to aid in ambulation. These will allow you to move about without overloading your knee. The doctor would like you to: Use walker, crutches, and or wheelchair and add weight to your knee as tolerated. Let the level of pain be your guide 7.) Do not immerse your knee under water until the puncture sites have completely healed. You may shower and pat the knee dry after you (more content not included)... [facility] PAC[facility] Record [facility] PAC[facility] Record [facility] Primary Physician: HERMILO TRAVIS DO Finalized Date/Time: 11/23/24 15:54:08 Pt. Name: VIJAYA TINSLEY/Sex: 1995 FEMALE Med Rec #: [id number] Physician: HERMILO TRAVIS DO Financial #: [id number] Pt. Type: D Room/Bed: / Admit/Disch: 11/23/24 12:30:34 - Institution: PACU Case Times MAGR Entry 1 In PACU I 11/23/24 15:21:00 Discharge from PACU 11/23/24 15:54:00 I Last Modified By: Abena Wesley RN 11/23/24 15:54:07 Finalized By: Abena Wesley RN Document Signatures Signed By: Abena Wesley RN 11/23/24 15:54 [facility] MAGR Postoperative Recordon 11-23-2024 MAGR Postoperative Record MAGR Phase II Record Summary Primary Physician: HERMILO TRAVIS DO Finalized Date/Time: 11/23/24 17:24:38 Pt. Name: VIJAYA TINSLEY/Sex: 1995 FEMALE Med Rec #: [id number] Physician: HERMILO TRAVIS DO Financial #: [id number] Pt. Type: D Room/Bed: / Admit/Disch: 11/23/24 12:30:34 - Institution: Phase II Case Times MAGR Pre-Care Text: Patient is free from s/s of injury. Patient remains free from compromised physical state related to surgery or anesthesia. Patient comfort maintained. Patient/family verbalize understanding of discharge instructions. Entry 1 In PACU II 11/23/24 15:58:00 Discharge from PACU 11/23/24 17:21:00 II Last Modified By: Abena Wesley RN 11/23/24 17:24:35 Post-Care Text: The patient remains free from s/s of injury. Patient's vital signs stable, circulation maintained, return to preop mental and physical status, opsite/dressing intact, minimal or absent nausea and vomiting, tolerates po intake. Patient verbalizes adequate pain control. Patient/family express understanding of discharge instructions. Finalized By: Abena Wesley RN Document Signatures Signed By: Abena Wesley RN 11/23/24 17:24 [facility] MAGR Preoperative Recordon 0 11-23-2024 MAGR Preoperative Record MAGR Pre-Op Record Summary Primary Physician: HERMILO TRAVIS DO Finalized Date/Time: 11/23/24 15:29:28 Pt. Name: VIJAYA TINSLEY/Sex: 1995 FEMALE Med Rec #: [id number] Physician: HERMILO TRAVIS DO Financial #: [id number] Pt. Type: D Room/Bed: / Admit/Disch: 11/23/24 12:30:34 - Institution: Pre-Op Case Times MAGR Pre-Care Text: Patient will be optimally prepared for surgery. Patient is free from s/s of injury. Provide information to patient/family related to plan of care. Verify patient allergies. Confirm identity and verify consent before the operative or invasive procedure. Entry 1 Patient Arrival Time 11/23/24 12:35:00 Preop Departure 11/23/24 14:27:00 Last Modified By: Abena Wesley RN 11/23/24 15:29:26 Post-Care Text: Patient is prepared mentally and physically and is ready for surgery. The patient remains free from s/s of injury. Patient/family express understanding of plan of care and participate in decisions affecting his or her perioperrative plan of care. Allergies documented appropriately. Patient identifiers and consent correct. General Comments: Patient arrives to unit per wheelchair. Reviewed for the next 24 hour not to do anything that takes concentration. Denies chest pain, shortness of breath or illnessess. Denies pacemaker/defib. Denies sleep apnea. Note patient has an internal bladder stimulator to lower back. Finalized By: Abena Wesley RN Document Signatures Signed By: Abena Wesley RN 11/23/24 15:29 Normal [facility] Patient Handouton 11-23-2024 Patient Handout Arthroscopic Surgery Discharge Instructions 1.) Keep ice on your knee after surgery. You may use the ice bag provided to you by the hospital or one from home. The ice should be applied at least 3 times a day for 20 minute intervals. 2.) Keep your knee elevated above the level of your hear. You may prop your leg up on pillows as long as the knee is higher than your heart. 3.) Move your knee. Please, do not be afraid to move the knee joint. It will be stiff and sore in the beginning, but this will slowly improve with healing time 4.) Wiggle your toes and exercise your ankle. These muscle pumps with help to take the swelling out of your knee and enhance circulation to the leg. Wiggle your toes and exercise your ankle for ten minutes every hour that you are awake. 5.) You may remove all bandages from your knee after 3 days. There may be some blood and drainage on the bandages, this is to be expected. You may clean the puncture sites with hydrogen peroxide and a cotton swab three times a day. Keep band aids over the puncture sites until scabbed over. 6.) If don't already have them, you will be issued a walker or crutches to aid in ambulation. These will allow you to move about without overloading your knee. The doctor would like you to: Use walker, crutches, and or wheelchair and add weight to your knee as tolerated. Let the level of pain be your guide 7.) Do not immerse your knee under water until the puncture sites have completely healed. You may shower and pat the knee dry after you remove the bandages starting in 3 days. 8.) Keep your follow up appoinment. 9.) If you notice foul odor, excessive drainage, calf pain, shortness of breath or increased swelling or pain call the office or proceed to the nearest Hospital Emergency Room. 10.) Be kind to yourself and do your exercises. Get planety of rest. Healing takes time. 11.) If you have been supplied with a brace, keep it in place at all times. 12.) For the next 24 hours do not drink any alcoholic beverages, drive a motore vehicle, operate machinery or [employer], make important decisions or sign important papers. 13.) You may feel dizzy, lightheaded or sleepy following surgery. Make sure you have someone with you for the rest of today. Normal [facility] Test Urine U Preg Negative Normal [facility] Comment on above: Performed By: #### [id number] ####[facility] (DEFAULT)[address] [place] [address] U Preg Internal Control Pass [facility] Comment on above: Performed By: #### [id number] ####[facility] (DEFAULT)[address] [place] [address] Progress Note - Nurseon 11-06 Progress Note - Nurse Patient states she finished Macrobid 2 days ago for UTI. Patient states Dr. Travis had her do another urine test this past Tuesday at [facility] and patient had not received the results yet. I attempted to call [facility] and they are closed. Pateint has not received a report yet on my chart. I informed the patient and mother that [facility] was closed. Informed Dedrick Sofia RN of above. D. Kokinda RN was going to talk to Dr. Thompson. [Electronically Signed on: 11/23/2024 13:57 EDT] Ange Vanessa RN [Verified on: 11/23/2024 13:57 EDT] Ange Vanessa RN [facility] Progress Note - Nurseon - Progress Note - Nurse Pre op phone call complete. Spoke with patient, confirmed time of arrival for 12:30 on 11/23/24. Reviewed pre op orders as given at [facility]. [Electronically Signed on: 11/22/2024 09:49 EDT] Ange Vanessa RN [Verified on: 11/22/2024 09:49 EDT] Ange Vanessa RN [facility] Progress Note - Nurseon 04-0 Progress Note - Nurse Anesthesiologist Dedrick Gandara notified of pt history on 11-13-2024- noted will need urine test day of surgery no other orders received . [Electronically Signed on: 11/13/2024 11:05 EDT] Abena Wesley RN [Verified on: 11/13/2024 11:05 EDT] Abena Wesley RN [facility] 09-20-2024 [facility] (EM[facility]) -------- VIJAYA TINSLEY ([id number]) 1995 F Date Time Provider Department 09/20/24 SYLVIA BRADY EMQ During your visit today, we recorded the following information about you: Susi Wei 09/20/2024 9:51 AM Signed September 20, 2024 9:44 AM Appeal letter tirzepatide, weight loss (ZEPBOUND) 2.5 mg/0.5 mL pen injector PA Case [id number] Faxed to [employer] [phone] Pending determination Susi Prior Relay Engineer Endocrinology and Metabolism [place] Allergies As of Date: 09/20/2024 Noted Allergy Reaction GRASS POLLEN-BERMUDA, STANDARD 08/08/2008 16 - Unknown AMOXICILLIN 01/15/2022 6 - Diarrhea VANCOMYCIN 06/30/2019 4 - Hives Comments: Burning sensation CETIRIZINE 03/16/2013 4 - Hives 14 - Other: See Comments 2 - Rash Comments: hives Date Reviewed: 08/30/2024 Reviewed by: Sylvia Brady MD - Fully Assessed Reason for Visit: Insurance Authorization [[id number]] Cmt: Appeal letter tirzepatide, weight loss (ZEPBOUND) 2.5 mg/0.5 mL pen injector Prescriptions as of 09/20/2024 - vibegron (GEMTESA) 75 mg tablet Take 1 tablet by mouth once daily. - tirzepatide, weight loss (ZEPBOUND) 2.5 mg/0.5 mL pen injector Inject 2.5 mg subcutaneously one time a week. - gabapentin (NEURONTIN) 300 mg capsule Take 1 capsule by mouth three times a day for 180 days. 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] 01/24/2017 Fatty (change of) liver, not elsewhere classifi*11/27/2021 Class 3 severe obesity in adult (HCC) [E66.813,*06/11/2022 Obesity, Class III, BMI >= 40 [E66.01] 06/21/2022 Moderate protein-calorie malnutrition (HCC) [E4*02/03/2023 Encounter Status:Closed by SUSI WEI on 09/20/24 [facility] 09-13-2024 CNPN Telephone (ENDOMN) -------- VIJAYA TINSLEY ([id number]) 1995 F Date Time Provider Department 09/13/24 SYLVIA BRADY ENDOMN During your visit today, we recorded the following information about you: Tim Garcia 09/13/2024 11:12 AM Signed Dear Provider, Your patient's medication tirzepatide, weight loss (ZEPBOUND) 2.5 mg/0.5 mL pen injector was denied. Denial letters are sent directly to the patient and at times to the healthcare providers. If we receive a denial letter, it will be indexed for your review. If you want to appeal the decision. Please submit your request via staff message to the [facility] Auth Appeals Pool ([id number]). You can find templates listed below to support your appeal in [employer] (Epic drop down, select patient care, select send letter). If it is an urgent request, you can email the PA Prior auth Team at [email or web address]. Please make sure the documents below are completed in order to process your request. Thank You, Rocky Robertson Auth Appeals Team Rocky MCKENZIE Appeal letter Rocky MCKENZIE Letter of Medical Necessity Rocky MCKENZIE [place] Allergies As of Date: 09/13/2024 Noted Allergy Reaction GRASS POLLEN-BERMUDA, STANDARD 08/08/2008 16 - Unknown AMOXICILLIN 01/15/2022 6 - Diarrhea VANCOMYCIN 06/30/2019 4 - Hives Comments: Burning sensation CETIRIZINE 03/16/2013 4 - Hives 14 - Other: See Comments 2 - Rash Comments: hives Date Reviewed: 08/30/2024 Reviewed by: Sylvia Brady MD - Fully Assessed Reason for Visit: Medication Preauthorization [914] Cmt: tirzepatide, weight loss (ZEPBOUND) 2.5 mg/0.5 mL pen injector Prescriptions as of 09/13/2024 - vibegron (GEMTESA) 75 mg tablet Take 1 tablet by mouth once daily. - tirzepatide, weight loss (ZEPBOUND) 2.5 mg/0.5 mL pen injector Inject 2.5 mg subcutaneously one time a week. - gabapentin (NEURONTIN) 300 mg capsule Take 1 capsule by mouth three times a day for 180 days. 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] 01/24/2017 Fatty (change of) liver, not elsewhere classifi*11/27/2021 Class 3 severe obesity in adult (HCC) [E66.813,*06/11/2022 Obesity, Class III, BMI >= 40 [E66.01] 06/21/2022 Moderate protein-calorie malnutrition (HCC) [E4*02/03/2023 Letter Text Encounter Status:Closed by TIM GARCIA on 09/13/24 [facility] Pinky 09-06-2024 CNPN Telephone (EMQ) -------- VIJAYA TINSLEY ([id number]) 1995 F Date Time Provider Department 09/06/24 SYLVIA BRADY EMQ During your visit today, we recorded the following information about you: Chiara Blanco 09/06/2024 4:41 PM Signed Initiated PA for Zepbound 2.5mg through [employer] Questions Completed Waiting for determination Chiara Prior Relay Engineer III Endocrinology AND Metabolism [place] Allergies As of Date: 09/06/2024 Noted Allergy Reaction GRASS POLLEN-BERMUDA, STANDARD 08/08/2008 16 - Unknown AMOXICILLIN 01/15/2022 6 - Diarrhea VANCOMYCIN 06/30/2019 4 - Hives Comments: Burning sensation CETIRIZINE 03/16/2013 4 - Hives 14 - Other: See Comments 2 - Rash Comments: hives Date Reviewed: 08/30/2024 Reviewed by: Sylvia Brady MD - Fully Assessed Reason for Visit: Medication Preauthorization [914] Cmt: Zepbound 2.5mg Prescriptions as of 09/06/2024 - vibegron (GEMTESA) 75 mg tablet Take 1 tablet by mouth once daily. - tirzepatide, weight loss (ZEPBOUND) 2.5 mg/0.5 mL pen injector Inject 2.5 mg subcutaneously one time a week. - gabapentin (NEURONTIN) 300 mg capsule Take 1 capsule by mouth three times a day for 180 days. 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] 01/24/2017 Fatty (change of) liver, not elsewhere classifi*11/27/2021 Class 3 severe obesity in adult (HCC) [E66.813,*06/11/2022 Obesity, Class III, BMI >= 40 [E66.01] 06/21/2022 Moderate protein-calorie malnutrition (HCC) [E4*02/03/2023 Encounter Status:Closed by CHIARA BLANCO on 09/06/24 Normal [facility] MR Brain WO and W contrast I [place] 01-05-2024 * * *Final Report* * * DATE OF EXAM: Jan 05 2024 6:22PM QBM 0295 - MRI BRAIN WO/W IVCON / PROCEDURE REASON: Trigeminal neuralgia * * * * Physician Interpretation * * * * EXAMINATION: MRA BRAIN WO IVCON, MRI BRAIN WO/W IVCON CLINICAL HISTORY: Trigeminal neuralgia. Left-sided facial pain TECHNIQUE: Routine MRI brain protocol without and with contrast including diffusion and gradient echo images. Intracranial 3D zgzf-fs-dnnian MRA with post-processing performed at the modality and 2D multiplanar and 3D maximum intensity projections were created, reviewed and archived. MQ: MRAB_4 Contrast: IV administration of 20 ml of Dotarem COMPARISON: None. RESULT: BRAIN: Acute Change: There is no evidence of restricted diffusion to suggest an acute infarct. Hemorrhage: No evidence of prior parenchymal hemorrhage on the provided images. Mass Lesion/ Mass Effect: No evidence of an intracranial mass or extra-axial fluid collection. No significant mass effect. Chronic Change: The white matter is within normal limits of signal intensity for age. Parenchyma: No significant volume loss for age. The brain parenchyma is otherwise within normal limits of signal intensity and morphology. Ventricles: Normal caliber and morphology. Skull Base: Hypothalamic and pituitary region are grossly normal. Craniocervical junction is normal. No significant marrow replacement process. There is an enhancing vascular structure in close proximity to the cisternal segment of the left trigeminal nerve which is favored to be venous. No morphological distortion or pathologic enhancement of either trigeminal nerve. No pathologic enhancement of the other visualized cranial nerves. Vasculature: Major intracranial arterial structures, and dural venous sinuses show typical flow void, suggesting patency by spin echo criteria. Other: Mucosal thickening of the left maxillary sinus and left anterior ethmoid air cells. The other paranasal sinuses are clear. Mastoid air cells are well aerated. Orbits and globes are unremarkable. Atypical DWI signal within the bilateral occipital condyles and sphenoid wings which is nonspecific and likely physiologic given the symmetric appearance. The other marrow signal of the skull base and calvarium is within normal limits. Visualized extracranial soft tissues are within normal limits. INTRACRANIAL MRA: Bilateral intracranial ICAs, ACAs, and MCAs are patent. No aneurysm is identified. Bilateral V4 vertebral artery segments, basilar artery, and major branch vessels are patent. Bilateral greens cutter are patent with conventional bilateral origins. No arterial impingement is identified on either trigeminal nerve. DIVISION OF RADIOLOGY Provider, [facility] - 01/05/2024 * * *Final Report* * * DATE OF EXAM: Jan 05 2024 6:22PM Q 0295 - MRI BRAIN WO/W IVCON / PROCEDURE REASON: Trigeminal neuralgia * * * * Physician Interpretation * * * * EXAMINATION: MRA BRAIN WO IVCON, MRI BRAIN WO/W IVCON CLINICAL HISTORY: Trigeminal neuralgia. Left-sided facial pain TECHNIQUE: Routine MRI brain protocol without and with contrast including diffusion and gradient echo images. Intracranial 3D cdbx-ti-zoocam MRA with post-processing performed at the modality and 2D multiplanar and 3D maximum intensity projections were created, reviewed and archived. MQ: MRAB_4 Contrast: IV administration of 20 ml of Dotarem COMPARISON: None. RESULT: BRAIN: Acute Change: There is no evidence of restricted diffusion to suggest an acute infarct. Hemorrhage: No evidence of prior parenchymal hemorrhage on the provided images. Mass Lesion/ Mass Effect: No evidence of an intracranial mass or extra-axial fluid collection. No significant mass effect. Chronic Change: The white matter is within normal limits of signal intensity for age. Parenchyma: No significant volume loss for age. The brain parenchyma is otherwise within normal limits of signal intensity and morphology. Ventricles: Normal caliber and morphology. Skull Base: Hypothalamic and pituitary region are grossly normal. Craniocervical junction is normal. No significant marrow replacement process. There is an enhancing vascular structure in close proximity to the cisternal segment of the left trigeminal nerve which is favored to be venous. No morphological distortion or pathologic enhancement of either trigeminal nerve. No pathologic enhancement of the other visualized cranial nerves. Vasculature: Major intracranial arterial structures, and dural venous sinuses show typical flow void, suggesting patency by spin echo criteria. Other: Mucosal thickening of the left maxillary sinus and left anterior ethmoid air cells. The other paranasal sinuses are clear. Mastoid air cells are well aerated. Orbits and globes are unremarkable. Atypical DWI signal within the bilateral occipital condyles and sphenoid wings which is nonspecific and likely physiologic given the symmetric appearance. The other marrow signal of the skull base and calvarium is within normal limits. Visualized extracranial soft tissues are within normal limits. INTRACRANIAL MRA: Bilateral intracranial ICAs, ACAs, and MCAs are patent. No aneurysm is identified. Bilateral V4 vertebral artery segments, basilar artery, and major branch vessels are patent. Bilateral greens cutter are patent with conventional bilateral origins. No arterial impingement is identified on either trigeminal nerve. IMPRESSION IMPRESSION: 1. No acute intracranial findings. 2. No pathologic enhancement or morphologic distortion of either trigeminal nerve. No evidence of arterial impingement on the trigeminal nerves. 3. Patent intracranial vasculature. No aneurysm is identified. Crisis Clinician: [facility] Transcribe Date/Time: Jan 05 2024 10:10P Dictated by : CEDRIC VALLE MD This examination was interpreted and the report reviewed and electronically signed by: CEDRIC VALLE MD on Jan 05 2024 10:25PM [facility] MRA Head vessels WO contrast on 01-05-2024 * * *Final Report* * * DATE OF EXAM: Jan 05 2024 6:22PM Q 0272 - MRA BRAIN WO IVCON / PROCEDURE REASON: Trigeminal neuralgia * * * * Physician Interpretation * * * * EXAMINATION: MRA BRAIN WO IVCON, MRI BRAIN WO/W IVCON CLINICAL HISTORY: Trigeminal neuralgia. Left-sided facial pain TECHNIQUE: Routine MRI brain protocol without and with contrast including diffusion and gradient echo images. Intracranial 3D veij-uo-hjoylv MRA with post-processing performed at the modality and 2D multiplanar and 3D maximum intensity projections were created, reviewed and archived. MQ: MRAB_4 Contrast: IV administration of 20 ml of Dotarem COMPARISON: None. RESULT: BRAIN: Acute Change: There is no evidence of restricted diffusion to suggest an acute infarct. Hemorrhage: No evidence of prior parenchymal hemorrhage on the provided images. Mass Lesion/ Mass Effect: No evidence of an intracranial mass or extra-axial fluid collection. No significant mass effect. Chronic Change: The white matter is within normal limits of signal intensity for age. Parenchyma: No significant volume loss for age. The brain parenchyma is otherwise within normal limits of signal intensity and morphology. Ventricles: Normal caliber and morphology. Skull Base: Hypothalamic and pituitary region are grossly normal. Craniocervical junction is normal. No significant marrow replacement process. There is an enhancing vascular structure in close proximity to the cisternal segment of the left trigeminal nerve which is favored to be venous. No morphological distortion or pathologic enhancement of either trigeminal nerve. No pathologic enhancement of the other visualized cranial nerves. Vasculature: Major intracranial arterial structures, and dural venous sinuses show typical flow void, suggesting patency by spin echo criteria. Other: Mucosal thickening of the left maxillary sinus and left anterior ethmoid air cells. The other paranasal sinuses are clear. Mastoid air cells are well aerated. Orbits and globes are unremarkable. Atypical DWI signal within the bilateral occipital condyles and sphenoid wings which is nonspecific and likely physiologic given the symmetric appearance. The other marrow signal of the skull base and calvarium is within normal limits. Visualized extracranial soft tissues are within normal limits. INTRACRANIAL MRA: Bilateral intracranial ICAs, ACAs, and MCAs are patent. No aneurysm is identified. Bilateral V4 vertebral artery segments, basilar artery, and major branch vessels are patent. Bilateral greens cutter are patent with conventional bilateral origins. No arterial impingement is identified on either trigeminal nerve. DIVISION OF RADIOLOGY Provider, [facility] - 01/05/2024 * * *Final Report* * * DATE OF EXAM: Jan 05 2024 6:22PM [facility] 0272 - MRA BRAIN WO IVCON / PROCEDURE REASON: Trigeminal neuralgia * * * * Physician Interpretation * * * * EXAMINATION: MRA BRAIN WO IVCON, MRI BRAIN WO/W IVCON CLINICAL HISTORY: Trigeminal neuralgia. Left-sided facial pain TECHNIQUE: Routine MRI brain protocol without and with contrast including diffusion and gradient echo images. Intracranial 3D luox-ob-krtfsk MRA with post-processing performed at the modality and 2D multiplanar and 3D maximum intensity projections were created, reviewed and archived. MQ: MRAB_4 Contrast: IV administration of 20 ml of Dotarem COMPARISON: None. RESULT: BRAIN: Acute Change: There is no evidence of restricted diffusion to suggest an acute infarct. Hemorrhage: No evidence of prior parenchymal hemorrhage on the provided images. Mass Lesion/ Mass Effect: No evidence of an intracranial mass or extra-axial fluid collection. No significant mass effect. Chronic Change: The white matter is within normal limits of signal intensity for age. Parenchyma: No significant volume loss for age. The brain parenchyma is otherwise within normal limits of signal intensity and morphology. Ventricles: Normal caliber and morphology. Skull Base: Hypothalamic and pituitary region are grossly normal. Craniocervical junction is normal. No significant marrow replacement process. There is an enhancing vascular structure in close proximity to the cisternal segment of the left trigeminal nerve which is favored to be venous. No morphological distortion or pathologic enhancement of either trigeminal nerve. No pathologic enhancement of the other visualized cranial nerves. Vasculature: Major intracranial arterial structures, and dural venous sinuses show typical flow void, suggesting patency by spin echo criteria. Other: Mucosal thickening of the left maxillary sinus and left anterior ethmoid air cells. The other paranasal sinuses are clear. Mastoid air cells are well aerated. Orbits and globes are unremarkable. Atypical DWI signal within the bilateral occipital condyles and sphenoid wings which is nonspecific and likely physiologic given the symmetric appearance. The other marrow signal of the skull base and calvarium is within normal limits. Visualized extracranial soft tissues are within normal limits. INTRACRANIAL MRA: Bilateral intracranial ICAs, ACAs, and MCAs are patent. No aneurysm is identified. Bilateral V4 vertebral artery segments, basilar artery, and major branch vessels are patent. Bilateral greens cutter are patent with conventional bilateral origins. No arterial impingement is identified on either trigeminal nerve. IMPRESSION IMPRESSION: 1. No acute intracranial findings. 2. No pathologic enhancement or morphologic distortion of either trigeminal nerve. No evidence of arterial impingement on the trigeminal nerves. 3. Patent intracranial vasculature. No aneurysm is identified. [facility] Trans[facility] Date/Time: Jan 05 2024 10:10P Dictated by : CEDRIC VALLE MD This examination was interpreted and the report reviewed and electronically signed by: CEDRIC VALLE MD on Jan 05 2024 10:25PM [facility] Panel Informationon 01-04 IMPRESSION: 1. No acute intracranial findings. 2. No pathologic enhancement or morphologic distortion of either trigeminal nerve. No evidence of arterial impingement on the trigeminal nerves. 3. Patent intracranial vasculature. No aneurysm is identified. Crisis Clinician: DONG Transcribe Date/Time: Jan 05 2024 10:10P Dictated by : CEDRIC VALLE MD This examination was interpreted and the report reviewed and electronically signed by: CEDRIC VALLE MD on Jan 05 2024 10:25PM [facility] DIVISION OF RADIOLOGY Radiology Study observation (narrative) [facility] No Panel InformationOrdered By: [facility] Provider on 01-05-2024 [facility] Glucose [Mass/volume] in Ser um or PlasmaOrdered By: Sylvia Colbert on 12-19-2023 Glucose [Mass/Vol] 88 mg/dL 70-100 [facility] Comment on above: ADA recommended refe rence rangeRandom Glucose Reference Range is dependent on time and content of last meal. Glucose of more than 200 mg/dL in a nonstressed, ambulatory subject supports the diagnosis of Diabetes Mellitus. No Panel InformationOrdered By: Sylvia Colbert on 12-19-2023 Adrenocorticotropic Hormone 45.0 pg/mL 7.2-63.3 [facility] Comment on above: ACTH reference inter ramon for samples collected between 7 and10 AM.Performed at: [facility] - [facility] [address] [id number] Director: Chan Bray PhD, Phone: [phone] Dehydroepiandrosterone Sulfate 149.0 ug/dL 84.8-378.0 [facility] Comment on above: Performed at: [facility] - [facility] [address] [id number] Director: Chan Bray PhD, Phone: [phone] Prolactin [Mass/volume] in S mckenna or PlasmaOrdered By: Sylvia Colbert on 12-19-2023 Prolactin [Mass/Vol] 20.57 ng/mL 3.34-26.72 [facility] Random cortisol measurementO rdered By: Sylvia Colbert on 12-19-2023 Cortisol [Mass/Vol] 10.9 ug/dL [facility] Comment on above: [facility] junior architect and method:RADHA UNICEL DXI, POLYCLONAL ANTIBODY CORTISOL ASSAY.Reference range: AM 6 - 24 ug/dl PM <10 ug/dl Serum or plasma insulin itzel urement (units/volume)Ordered By: Sylvia Colbert on 12-19-2023 Insulin Qn 16.2 u[iU]/mL 2.6-24.9 [facility] Comment on above: Performed at: [facility] [employer] [address] [id number] Director: Chan Bray PhD, Phone: [phone] Serum or plasma insulin-like growth factor (IGF) 1 measurementOrdered By: Sylvia Colbert on 12-19-2023 Insulin-like growth factor-I [Mass/Vol] 208 ng/mL 91-308 [facility] Comment on above: Performed at: [facility] [employer] [address] [id number] Director: Eyal Hanna MD, Phone: [phone] Serum or plasma thyroglobuli n antibody assay (units/volume)Ordered By: Sylvia Colbert on 12-19-2023 Thyroglobulin Ab Qn 84.1 [IU]/mL 0.0-0.9 [facility] Comment on above: Thyroglobulin Antibo dy measured by Radha CoulterMethodologyIt should be noted that the presence of thyroglobulinantibodies may not be pathogenic nor diagnostic, especiallyat very low levels. The assay junior architect has found thatfour percent of individuals without evidence of thyroiddisease or autoimmunity will have positive TgAb levels upto 4 IU/mL.Performed at: [facility] - [facility] [address] [id number] Director: Chan Bray PhD, Phone: [phone] Serum or plasma thyroperoxid ase antibody assay (units/volume)Ordered By: Sylvia Colbert on 12-19-2023 TPO Ab Qn 10 [IU]/mL 0-34 [facility] Testosterone [Mass/volume] i n Serum or PlasmaOrdered By: Sylvia Colbert on 12-19-2023 Testosterone [Mass/Vol] 0.60 ng/mL 0.00-0.75 [facility] Thyrotropin [Units/volume] i n Serum or PlasmaOrdered By: Sylvia Colbert on 12-19-2023 TSH Qn 2.65 m[IU]/L 0.45-5.33 [facility] Thyroxine (T4) free [Mass/vo lume] in Serum or PlasmaOrdered By: Sylvia Colbert on 12-19-2023 Free T4 [Mass/Vol] 0.89 ng/dL 0.61-1.12 [facility] Triiodothyronine (T3) Free [ Mass/volume] in Serum or PlasmaOrdered By: Sylvia Colbert on 12-19-2023 Free T3 [Mass/Vol] 3.29 pg/mL 2.50-3.90 [facility] Alanine aminotransferase [En zymatic activity/volume] in Serum or PlasmaOrdered By: Dionne Chambers on 07-28-2023 ALT [Catalytic activity/Vol] 20 U/L 7-52 [facility] Albumin [Mass/volume] in Ser um or Plasma by Bromocresol green (BCG) dye binding methoOrdered By: Dionne Chambers on 07-28-2023 Albumin BCG dye [Mass/Vol] 4.0 g/dL 3.5-5.7 [facility] Alkaline phosphatase [Enzyma tic activity/volume] in Serum or PlasmaOrdered By: Dionne Chambers on 07-28-2023 ALP [Catalytic activity/Vol] 57 U/L 34-104 [facility] Aspartate aminotransferase [ Enzymatic activity/volume] in Serum or PlasmaOrdered By: Dionne Chambers on 07-28-2023 AST [Catalytic activity/Vol] 15 U/L 13-39 [facility] Basophils Auto (Bld) [#/Vol] Ordered By: Dionne Chambers on 07-28-2023 Basophils (Bld) [#/Vol] 0.0 10*3/uL 0.0-0.2 [facility] Basophils/100 WBC Auto (Bld) Ordered By: Dionne Chambers on 07-28-2023 Basophils/100 WBC (Bld) 0.5 % . [facility] Bilirubin.total [Mass/volume ] in Serum or PlasmaOrdered By: Dionne Chambers on 07-28-2023 Bilirubin [Mass/Vol] 0.3 mg/dL 0.3-1.0 [facility] Calcium [Mass/volume] in Ser um or PlasmaOrdered By: Dionne Chambers on 07-28-2023 Calcium [Mass/Vol] 8.8 mg/dL 8.6-10.3 [facility] Carbon dioxide, total [Moles /volume] in Serum or PlasmaOrdered By: Dionne Chambers on 07-28-2023 CO2 [Moles/Vol] 25.3 mmol/L 21.0-31.0 [facility] Chloride [Moles/volume] in S mckenna or PlasmaOrdered By: Dionne Chambers on 07-28-2023 Chloride [Moles/Vol] 107 mmol/L 98-107 [facility] Cholesterol [Mass/volume] in Serum or PlasmaOrdered By: Dionne Chambers on 07-28-2023 Cholesterol [Mass/Vol] 210 mg/dL 140-200 [facility] Comment on above: Chol less than 200 m g/dl low riskChol 201-239 mg/dl borderline riskChol 240 mg/dl and greater high risk Cholesterol in LDL Calc [Mas s/Vol]Ordered By: Dionne Chambers on 07-28-2023 Cholesterol in LDL [Mass/Vol] 128 mg/dL 0-100 [facility] Comment on above: LDL ATP III CLASSIFI CATIONLDL less than 100 mg/dL OptimalLDL 100-129 mg/dL Near or above optimalLDL 130-159 mg/dL Borderline highLDL 160-189 mg/dL HighLDL greater than 189 mg/dL Very high Cholesterol in VLDL Calc [Ma ss/Vol]Ordered By: Dionne Chambers on 07-28-2023 Cholesterol in VLDL [Mass/Vol] 25 mg/dL [facility] Creatinine [Mass/volume] in Serum or PlasmaOrdered By: Dionne Chambers on 07-28-2023 Creatinine [Mass/Vol] 0.57 mg/dL 0.60-1.20 [facility] Eosinophils Auto (Bld) [#/Vo l]Ordered By: Dionne Chambers on 07-28-2023 Eosinophils (Bld) [#/Vol] 0.3 10*3/uL 0.0-0.45 [facility] Eosinophils/100 WBC Auto (Bl d)Ordered By: Dionne Chambers on 07-28-2023 Eosinophils/100 WBC (Bld) 3.5 % . [facility] Erythrocyte distribution wid th Auto (RBC) [Ratio]Ordered By: Dionne Chambers on 07-28-2023 Erythrocyte distribution width (RBC) [Ratio] 14.3 % 11.9-15.3 [facility] Globulin Calc (S) [Mass/Vol] Ordered By: Dionne Chambers on 07-28-2023 Globulin (S) [Mass/Vol] 2.4 g/dL [facility] Glucose [Mass/volume] in Ser um or PlasmaOrdered By: Dionne Chambers on 07-28-2023 Glucose [Mass/Vol] 78 mg/dL 70-100 [facility] Comment on above: ADA recommended refe rence rangeRandom Glucose Reference Range is dependent on time and content of last meal. Glucose of more than 200 mg/dL in a nonstressed, ambulatory subject supports the diagnosis of Diabetes Mellitus. Glucose mean value [Mass/vol ume] in Blood Estimated from glycated hemoglobinOrdered By: Dionne Chambers on 07-28-2023 Average glucose Estimated from glycated hemoglobin (Bld) [Mass/Vol] 105 mg/dL [facility] Hematocrit Auto (Bld) [Volum e fraction]Ordered By: Dionne Chambers on 07-28-2023 Hematocrit (Bld) [Volume fraction] 37.9 % 34.0-46.4 [facility] Hemoglobin A1c percentageOrd ered By: Dionne Chambers on 07-28-2023 HbA1c (Bld) [Mass fraction] 5.3 % 4.3-5.6 [facility] Comment on above: Increased risk for d iabetes: 5.7 - 6.4diabetes: >6.4glycemic control for adults with diabetes: <7.0 Hemoglobin [Mass/volume] in BloodOrdered By: Dionne Chambers on 07-28-2023 Hemoglobin (Bld) [Mass/Vol] 12.8 g/dL 11.8-15.4 [facility] Leukocytes [#/volume] correc jonas for nucleated erythrocytes in Blood by Automated counOrdered By: Dionne Chambers on 07-28-2023 WBC corrected for nucl RBC Auto (Bld) [#/Vol] 8.0 10*3/uL 3.8-11.6 [facility] Lymphocytes Auto (Bld) [#/Vo l]Ordered By: Dionne Chambers on 07-28-2023 Lymphocytes (Bld) [#/Vol] 1.5 10*3/uL 1.00-4.8 [facility] Lymphocytes/100 WBC Auto (Bl d)Ordered By: Dionne Chambers on 07-28-2023 Lymphocytes/100 WBC (Bld) 18.6 % . [facility] MCH Auto (RBC) [Entitic mass ]Ordered By: Dionne Chambers on 07-28-2023 MCH (RBC) [Entitic mass] 28.0 pg 24.7-34.3 [facility] MCHC Auto (RBC) [Mass/Vol]Or dered By: Dionne Chambers on 07-28-2023 MCHC (RBC) [Mass/Vol] 33.8 g/dL 32.0-35.0 [facility] MCV Auto (RBC) [Entitic vol] Ordered By: Dionne Chambers on 07-28-2023 MCV (RBC) [Entitic vol] 82.8 fL 80-100 [facility] Monocytes Auto (Bld) [#/Vol] Ordered By: Dionne Chambers on 07-28-2023 Monocytes (Bld) [#/Vol] 0.5 10*3/uL 0.0-0.8 [facility] Monocytes/100 WBC Auto (Bld) Ordered By: Dionne Chambers on 07-28-2023 Monocytes/100 WBC (Bld) 5.7 % . [facility] Neutrophils Auto (Bld) [#/Vo l]Ordered By: Dionne Chambers on 07-28-2023 Neutrophils (Bld) [#/Vol] 5.7 10*3/uL 1.8-7.7 [facility] Neutrophils/100 WBC Auto (Bl d)Ordered By: Dionne Chambers on 07-28-2023 Neutrophils/100 WBC (Bld) 71.7 % . [facility] No Panel InformationOrdered By: Dionne Chambers on 07-28-2023 Estimated GFR (CKD-EPI) > 60.0 mL/Min [facility] Creatinine Clearance (Chem N/A [facility] Nucleated erythrocytes [Pres ence] in Blood by Automated countOrdered By: Dionne Chambers on 07-28-2023 Nucleated RBC Auto Ql (Bld) 0.0 /100{WBC} 0-0.5 [facility] Platelet mean volume Auto (B ld) [Entitic vol]Ordered By: Dionne Chambers on 07-28-2023 Platelet mean volume (Bld) [Entitic vol] 9.1 fL 6.3-10.7 [facility] Platelets Auto (Bld) [#/Vol] Ordered By: Dionne Chambers on 07-28-2023 Platelets (Bld) [#/Vol] 339 10*3/uL 150-450 [facility] Potassium [Moles/volume] in Serum or PlasmaOrdered By: Dionen Chambers on 07-28-2023 Potassium [Moles/Vol] 4.1 mmol/L 3.5-5.1 [facility] Protein [Mass/volume] in Ser um or PlasmaOrdered By: Dionne Chambers on 07-28-2023 Protein [Mass/Vol] 6.4 g/dL 6.4-8.9 [facility] RBC Auto (Bld) [#/Vol]Ordere d By: Dionne Chambers on 07-28-2023 RBC (Bld) [#/Vol] 4.58 10*6/uL 3.60-5.00 [facility] Serum or plasma albumin/glob ulin mass ratioOrdered By: Dionne Chambers on 07-28-2023 Albumin/Globulin [Mass ratio] 1.7 {ratio} [facility] Serum or plasma anion gap de terminationOrdered By: Dionne Chambers on 07-28-2023 Anion gap [Moles/Vol] 8.8 mmol/L 6.0-15.0 [facility] Serum or plasma high density lipoprotein (HDL) cholesterol measurementOrdered By: Dionne Chambers on 07-28-2023 Cholesterol in HDL [Mass/Vol] 57 mg/dL 23-92 [facility] Comment on above: HDL CHOL ATP-III CLA SSIFICATION Cardiovascular RiskHDL > or equal to 60 mg/dL LOWHDL < 40 mg/dL HIGH Serum or plasma thyroglobuli n antibody assay (units/volume)Ordered By: Dionne Chambers on 07-28-2023 Thyroglobulin Ab Qn 124.3 [IU]/mL 0.0-0.9 [facility] Comment on above: Thyroglobulin Antibo dy measured by EnersaveMethodologyPerformed at: [facility] - [facility] [place] [id number] Director: Chan Bray PhD, Phone: [phone] Serum or plasma thyroperoxid ase antibody assay (units/volume)Ordered By: Dionne Chambers on 07-28-2023 TPO Ab Qn 18 [IU]/mL 0-34 [facility] Serum or plasma total choles terol/high density lipoprotein (HDL) cholesterol mass ratOrdered By: Dionne Chambers on 07-28-2023 Cholesterol.total/Vivi sterol in HDL [Mass ratio] 3.7 {ratio} <5.0 [facility] Sodium [Moles/volume] in Ser um or PlasmaOrdered By: Dionne Chambers on 07-28-2023 Sodium [Moles/Vol] 137 mmol/L 136-145 [facility] Thyrotropin [Units/volume] i n Serum or PlasmaOrdered By: Dionne Chambers on 07-28-2023 TSH Qn 3.08 m[IU]/L 0.45-5.33 [facility] Thyroxine (T4) free [Mass/vo lume] in Serum or PlasmaOrdered By: Dionne Chambers on 07-28-2023 Free T4 [Mass/Vol] 0.74 ng/dL 0.61-1.12 [facility] Triglyceride [Mass/volume] i n Serum or PlasmaOrdered By: Dionne Chambers on 07-28-2023 Triglyceride [Mass/Vol] 126 mg/dL 0-149 [facility] Comment on above: TRIG ATP III CLASSIF ICATIONTRIG less than 150 mg/dL NormalTRIG 150-199 mg/dL Borderline highTRIG 200-500 mg/dL High TRIG greater than 500 mg/dL Very highStandard traceable to the Center for Disease Conrtrol and Prevention (CDC) test method. Triiodothyronine (T3) Free [ Mass/volume] in Serum or PlasmaOrdered By: Dionne Chambers on 07-28-2023 Free T3 [Mass/Vol] 3.23 pg/mL 2.50-3.90 [facility] Urea nitrogen [Mass/volume] in Serum or PlasmaOrdered By: Dionne Chambers on 07-28-2023 Urea nitrogen [Mass/Vol] 11 mg/dL 7-25 [facility] WBC Auto (Bld) [#/Vol]Ordere d By: Dionne Chambers on 07-28-2023 WBC (Bld) [#/Vol] 8.0 10*3/uL 3.8-11.6 [facility] URINALYSIS, REFLEX MICROSCOP ICon 02-03-2023 Bacteria LM.HPF (Urine sed) [#/Area] Rare Abnormal None Seen /HPF [facility] Bilirubin Ql (U) Negative Negative [facility] Clarity (Unsp spec) Clear Clear [facility] Color (U) Yellow Yellow [facility] Epithelial cells LM.HPF (Urine sed) [#/Area] Few [facility] Glucose Test strip (U) [Mass/Vol] Negative Trace, Negative [facility] Hemoglobin Ql (U) 3+ Abnormal Negative, Trace [facility] Hyaline casts (Urine sed) [#/Area] 1-3 /LPF Abnormal 0 /LPF [facility] Ketones Ql (U) Negative Negative, Trace [facility] Leukocyte esterase Test strip Ql (U) 250 Joselo/uL Abnormal Negative, 25 Joselo/uL [facility] Nitrite Ql (U) Negative Negative [facility] pH (U) 5.0 [pH] 5.0 - 8.0 [facility] Protein (U) [Mass/Vol] Trace Trace , Negative [facility] RBC LM.HPF (Urine sed) [#/Area] 6-10 /HPF Abnormal 0-3 /HPF [facility] Specific gravity (U) [Rel density] 1.035 High 1.005 - 1.030 [facility] Urobilinogen Ql (U) Negative Negative [facility] WBC LM.HPF (Urine sed) [#/Area] 6-10 /HPF Abnormal 0-5 /HPF [facility] Basophils Auto (Bld) [#/Vol] Ordered By: Dionne Chambers on 08-16-2022 Basophils (Bld) [#/Vol] 0.0 10*3/uL 0.0-0.2 [facility] Basophils/100 WBC Auto (Bld) Ordered By: Dionne Chambers on 08-16-2022 Basophils/100 WBC (Bld) 0.5 % . [facility] Body fluid albumin measureme nt (mass/volume)Ordered By: Dionne Chambers on 08-16-2022 Albumin (Body fld) [Mass/Vol] 3.7 g/dL 3.2-5.5 [facility] Cholesterol [Mass/volume] in Serum or PlasmaOrdered By: Dionne Chambers on 08-16-2022 Cholesterol [Mass/Vol] 162 mg/dL 140-200 [facility] Comment on above: Chol less than 200 m g/dl low riskChol 201-239 mg/dl borderline riskChol 240 mg/dl and greater high risk Cholesterol in LDL Calc [Mas s/Vol]Ordered By: Dionne Chambers on 08-16-2022 Cholesterol in LDL [Mass/Vol] 102 mg/dL 0-100 [facility] Comment on above: LDL ATP III CLASSIFI CATIONLDL less than 100 mg/dL OptimalLDL 100-129 mg/dL Near or above optimalLDL 130-159 mg/dL Borderline highLDL 160-189 mg/dL HighLDL greater than 189 mg/dL Very high Cholesterol in VLDL Calc [Ma ss/Vol]Ordered By: Dionne Chambers on 08-16-2022 Cholesterol in VLDL [Mass/Vol] 11 mg/dL [facility] Creatinine and Glomerular fi ltration rate.predicted panel (S/P/Bld)Ordered By: Dionne Chambers on 08-16-2022 Creatinine [Mass/Vol] 0.56 mg/dL 0.44-1.03 [facility] Direct bilirubin measurement Ordered By: Aixa Sánchez on 08-16-2022 Bilirubin.direct [Mass/Vol] mg/dL 0.0-0.4 [facility] Eosinophils Auto (Bld) [#/Vo l]Ordered By: Dionne Chambers on 08-16-2022 Eosinophils (Bld) [#/Vol] 0.2 10*3/uL 0.0-0.45 [facility] Eosinophils/100 WBC Auto (Bl d)Ordered By: Dionne Chambers on 08-16-2022 Eosinophils/100 WBC (Bld) 3.1 % . [facility] Erythrocyte distribution wid th Auto (RBC) [Ratio]Ordered By: Dionne Chambers on 08-16-2022 Erythrocyte distribution width (RBC) [Ratio] 13.9 % 11.9-15.3 [facility] Estimated glomerular filtrat ion rate (GFR) non- AmericanOrdered By: Dionne Chambers on 08-16-2022 GFR/1.73 sq M.predicted among non-blacks MDRD (S/P/Bld) [Vol rate/Area] > 60 mL/Min [facility] Globulin Calc (S) [Mass/Vol] Ordered By: Dionne Chambers on 08-16-2022 Globulin (S) [Mass/Vol] 2.8 g/dL [facility] Hematocrit Auto (Bld) [Volum e fraction]Ordered By: Dionne Chambers on 08-16-2022 Hematocrit (Bld) [Volume fraction] 37.5 % 34.0-46.4 [facility] Hemoglobin [Mass/volume] in BloodOrdered By: Dionne Chambers on 08-16-2022 Hemoglobin (Bld) [Mass/Vol] 12.1 g/dL 11.8-15.4 [facility] Leukocytes [#/volume] correc jonas for nucleated erythrocytes in Blood by Automated counOrdered By: Dionne Chambers on 08-16-2022 WBC corrected for nucl RBC Auto (Bld) [#/Vol] 5.6 10*3/uL 3.8-11.6 [facility] Lymphocytes Auto (Bld) [#/Vo l]Ordered By: Dionne Chambers on 08-16-2022 Lymphocytes (Bld) [#/Vol] 1.3 10*3/uL 1.00-4.8 [facility] Lymphocytes/100 WBC Auto (Bl d)Ordered By: Dionne Chambers on 08-16-2022 Lymphocytes/100 WBC (Bld) 22.9 % . [facility] MCH Auto (RBC) [Entitic mass ]Ordered By: Dionne Chambers on 08-16-2022 MCH (RBC) [Entitic mass] 26.6 pg 24.7-34.3 [facility] MCHC Auto (RBC) [Mass/Vol]Or dered By: Dionne Chambers on 08-16-2022 MCHC (RBC) [Mass/Vol] 32.3 g/dL 32.0-35.0 [facility] MCV Auto (RBC) [Entitic vol] Ordered By: Dionne Chambers on 08-16-2022 MCV (RBC) [Entitic vol] 82.4 fL 80-100 [facility] Monocytes Auto (Bld) [#/Vol] Ordered By: Dionne Chambers on 08-16-2022 Monocytes (Bld) [#/Vol] 0.4 10*3/uL 0.0-0.8 [facility] Monocytes/100 WBC Auto (Bld) Ordered By: Dionne Chambers on 08-16-2022 Monocytes/100 WBC (Bld) 7.0 % . [facility] Neutrophils Auto (Bld) [#/Vo l]Ordered By: Dionne Chambers on 08-16-2022 Neutrophils (Bld) [#/Vol] 3.7 10*3/uL 1.8-7.7 [facility] Neutrophils/100 WBC Auto (Bl d)Ordered By: Dionne Chambers on 08-16-2022 Neutrophils/100 WBC (Bld) 66.5 % . [facility] No Panel InformationOrdered By: Dionne Chambers on 08-16-2022 25-Hydroxy Vitamin D Total 15.7 ng/mL 30-100 [facility] Comment on above: VITAMIN D STATUS 25( [place])VITAMIN D RANGE (ng/mL) Deficient <20 Insufficient 20 to <30Sufficient 30 to 100Reference: Lu MF,Linda NC, Tico CURTIS, et al. Evaluation,treatment, and prevention of vitamin D deficiency; an Endocrine Society clinical practice guideline. JCEM. 2010; 96(7):1911-30. Estimated GFR () > 60 mL/Min [facility] Comment on above: GFR estimated refere nce range: According to KDOQI guidelines, <60 ml/min/1.73m2 is sufficient to diagnose a patient with chronic kidney disease. Pharmacy Creatinine Clearance (Chem N/A [facility] Nucleated erythrocytes [Pres ence] in Blood by Automated countOrdered By: Dionne Chambers on 08-16-2022 Nucleated RBC Auto Ql (Bld) 0.1 /100{WBC} 0-0.5 [facility] Platelet mean volume Auto (B ld) [Entitic vol]Ordered By: Dionne Chambers on 08-16-2022 Platelet mean volume (Bld) [Entitic vol] 8.8 fL 6.3-10.7 [facility] Platelets Auto (Bld) [#/Vol] Ordered By: Dionne Chambers on 08-16-2022 Platelets (Bld) [#/Vol] 329 10*3/uL 150-450 [facility] Protein [Mass/volume] in Ser um or PlasmaOrdered By: Dionne Chambers on 08-16-2022 Protein [Mass/Vol] 6.5 g/dL 6.1-7.9 [facility] RBC Auto (Bld) [#/Vol]Ordere d By: Dionne Chambers on 08-16-2022 RBC (Bld) [#/Vol] 4.54 10*6/uL 3.60-5.00 [facility] Serum or plasma alanine sanchez otransferase measurement without P-5'-P (enzymatic activiOrdered By: Dionne Chambers on 08-16-2022 ALT No additional P-5'-P [Catalytic activity/Vol] 33 U/L 10-60 [facility] Serum or plasma albumin/glob ulin mass ratioOrdered By: Dionne Chambers on 08-16-2022 Albumin/Globulin [Mass ratio] 1.3 {ratio} [facility] Serum or plasma alkaline felice sphatase measurement (enzymatic activity/volume)Ordered By: Dionne Chambers on 08-16-2022 ALP [Catalytic activity/Vol] 68 U/L 32-92 [facility] Serum or plasma anion gap de terminationOrdered By: Dionne Chambers on 08-16-2022 Anion gap [Moles/Vol] 11.5 mmol/L 6.0-15.0 [facility] Serum or plasma aspartate am inotransferase measurement (enzymatic activity/volume)Ordered By: Dionne Chambers on 08-16-2022 AST [Catalytic activity/Vol] 23 U/L 10-42 [facility] Serum or plasma calcium itzel urement (mass/volume)Ordered By: Dionne Chambers on 08-16-2022 Calcium [Mass/Vol] 8.9 mg/dL 8.2-10.2 [facility] Serum or plasma chloride tammy surement (moles/volume)Ordered By: Dionne Chambers on 08-16-2022 Chloride [Moles/Vol] 104 mmol/L 95-114 [facility] Serum or plasma glucose itzel urement (mass/volume)Ordered By: Dionne Chambers on 08-16-2022 Glucose [Mass/Vol] 94 mg/dL 70-100 [facility] Comment on above: ADA recommended refe rence rangeRandom Glucose Reference Range is dependent on time and content of last meal. Glucose of more than 200 mg/dL in a nonstressed, ambulatory subject supports the diagnosis of Diabetes Mellitus. Serum or plasma high density lipoprotein (HDL) cholesterol measurementOrdered By: Dionne Chambers on 08-16-2022 Cholesterol in HDL [Mass/Vol] 48 mg/dL 35-85 [facility] Comment on above: HDL CHOL ATP-III CLA SSIFICATION Cardiovascular RiskHDL > or equal to 60 mg/dL LOWHDL < 40 mg/dL HIGH Serum or plasma potassium me asurement (moles/volume)Ordered By: Dionne Chambers on 08-16-2022 Potassium [Moles/Vol] 3.4 mmol/L 3.5-5.1 [facility] Serum or plasma sodium measu rement (moles/volume)Ordered By: Dionne Chambers on 08-16-2022 Sodium [Moles/Vol] 135 mmol/L 136-146 [facility] Serum or plasma total biliru bin measurement (mass/volume)Ordered By: Dionne Chambers on 08-16-2022 Bilirubin [Mass/Vol] mg/dL 0.3-1.2 [facility] Serum or plasma total carbon dioxide measurement (moles/volume)Ordered By: Dionne Chambers on 08-16-2022 CO2 [Moles/Vol] 22.9 mmol/L 22.0-30.0 [facility] Serum or plasma total choles terol/high density lipoprotein (HDL) cholesterol mass ratOrdered By: Dionne Chambers on 08-16-2022 Cholesterol.total/Vivi sterol in HDL [Mass ratio] 3.4 {ratio} <5.0 [facility] Serum or plasma urea nitroge n measurement (mass/volume)Ordered By: Dionne Chambers on 08-16-2022 Urea nitrogen [Mass/Vol] 13 mg/dL 9-23 [facility] TSH DL <= 0.005 mIU/L QnOrde red By: Dionne Chambers on 08-16-2022 TSH Qn 1.77 m[IU]/L 0.45-5.33 [facility] Triglyceride [Mass/volume] i n Serum or PlasmaOrdered By: Dionne Chambers on 08-16-2022 Triglyceride [Mass/Vol] 58 mg/dL 35-149 [facility] Comment on above: TRIG ATP III CLASSIF ICATIONTRIG less than 150 mg/dL NormalTRIG 150-199 mg/dL Borderline highTRIG 200-500 mg/dL High TRIG greater than 500 mg/dL Very highStandard traceable to the Center for Disease Conrtrol and Prevention (CDC) test method. WBC Auto (Bld) [#/Vol]Ordere d By: Dionne Chambers on 08-16-2022 WBC (Bld) [#/Vol] 5.6 10*3/uL 3.8-11.6 [facility] XR Pelvis APon 07-27-2022 IMPRESSION: Bladder is dilated, as detailed. Lower lumbar degenerative changes and minimal anterolisthesis at L5-S1 likely relating to L5 pars defects. Crisis Clinician: DONG Transcribe Date/Time: Jul 27 2022 2:10P Dictated by : LUDWIG WHEELER MD This examination was interpreted and the report reviewed and electronically signed by: LUDWIG WHEELER MD on Jul 27 2022 10:20PM [facility] DIVISION OF RADIOLOGY * * *Final Report* * * DATE OF EXAM: Jul 27 2022 10:43AM CCX 5239 - XR PELVIS 1V AP / PROCEDURE REASON: Urinary frequency * * * * Physician Interpretation * * * * EXAMINATION / TECHNIQUE: XR PELVIS 1V AP HISTORY: URINARY FREQUENCY Urinary frequency COMPARISON: RESULT: There is a right gluteal generator with a presacral stimulator appearing to traverse the right S3 neural foramen. Suspected L5 pars defects with grade 1 anterolisthesis of L5 on S1. Mild lower lumbar degenerative disc disease and facet arthropathy. Pelvic joint spaces are maintained. 2 tubular densities projecting over the left thigh are likely external to the patient. DIVISION OF RADIOLOGY [facility] * * *Final Report* * * DATE OF EXAM: Jul 27 2022 10:43AM CCX 5239 - XR PELVIS 1V AP / PROCEDURE REASON: Urinary frequency * * * * Physician Interpretation * * * * EXAMINATION / TECHNIQUE: XR PELVIS 1V AP HISTORY: URINARY FREQUENCY Urinary frequency COMPARISON: RESULT: There is a right gluteal generator with a presacral stimulator appearing to traverse the right S3 neural foramen. Suspected L5 pars defects with grade 1 anterolisthesis of L5 on S1. Mild lower lumbar degenerative disc disease and facet arthropathy. Pelvic joint spaces are maintained. 2 tubular densities projecting over the left thigh are likely external to the patient. IMPRESSION IMPRESSION: Bladder is dilated, as detailed. Lower lumbar degenerative changes and minimal anterolisthesis at L5-S1 likely relating to L5 pars defects. Crisis Clinician: [facility] Transcribe Date/Time: Jul 27 2022 2:10P Dictated by : LUDWIG WHEELER MD This examination was interpreted and the report reviewed and electronically signed by: LUDWIG WHEELER MD on Jul 27 2022 10:20PM EST [facility] Radiology Study observation (narrative) [facility] XR Pelvis APOrdered By: Ccf Provider on 07-27-2022 [facility] EEGon 06-13-2022 EEG This is a routine electroencephalogram performed on a 26 year old male using standard 10/20 lead placement and a [employer] system. All data was obtained digitally and is available for reformatting and remontaging. There is a posterior dominant rhythm in the 9 to 11 hertz alpha range and 20 to 30 microvolt amplitude range recorded in the occipital leads symmetrically during restful wakefulness. This rhythm attenuates with eye opening. There is beta activity in the 15 to 20 hertz range and less than 20 microvolt amplitude range recorded in the frontocentral regions intermittently and symmetrically throughout the record. There is attenuation of the background rhythm, rolling eye movements, attenuation of muscle artifact, and generalized slowing, consistent with Stage I sleep occurred in approximately 10% of the record. There is no photic driving recorded with photic stimulation performed at multiple frequencies. There is no epileptiform activity recorded during the record. There are no seizures recorded during the record. There is no abnormal slowing recorded during the record. IMPRESSION:This is a normal routine electroencephalogram. Dillan Zuniga M.D. lr Dictated: 06/10/2022 [id number] Typed: 06/10/2022 cc:Aric Sánchez DO Normal [facility] Comment on above: Result Comment: Elec tronically Signed By: Efrain DÍAZ, Dillan\.br\Date and Time Signed: 06/13/22 08:06 EST URINE CULTUREon 06-11-2022 Bacteria identified Cx Nom (U) 10,000 -<50,000 CFU/ml Mixed microbiota Abnormal [facility] Coding Summary.on 06-09-2022 Coding Summary. CD:[id number] Gh0b Ww+PGhlYWQ+BX4SYUPtA53pg LZcqT6VS8rOFX5KSBYMCCQZZ F5VHB4ciIN6YFjcU9IpxkBe GdtkyGBhBR85GAh8VMS9iErf JIakuB2trCKuM7n2ThVvWD00 eR81VRpgJGOfPcF8VoBqqceg bWFy B9kcXxOraOItJvv+PHRhYmxl IHdpZHRoPScxMDAlJyBzdHls MW2yEr1nKHNcSXLkyXmcqRZn OiBj i7nqLOBpYWsrWH7jnCyyW4Da fQB9SPVwx5m4Ns89jSS+PHRk JJD6bPmdLEwkm827RiAnk8tt IDM3 wMZjEMkaTRN1P61ej7Z6TAFh DKOoQQQ5uLP4sM1hjCtdrklp U3JgeKYyOwK2IXA9pBOirL2s bGln fqjfzB9vRgp+Q24IMK3LSHDM LB4ZOeb2V9LdWjphsYB+PC90 DYTmKI38jSYcnIXca4gveUa7 JzEw IBUfAKZ8cJgpZAkzv8SpPKKy Z99erQEdc8B6UYGxgVyciZFp HoDfmCZ1tZ3fGRvzyawkx7qe dzsn Gecow2ifhy68iS23C83gCDtb IQSbJIY1NNPhGNSekBeppj7b yC1wKp5+FIrlp2osc7hftRs2 IjIw SDWxzaZgsNxuTTM5d1RmQn15 J8NgmByaj6XuCic4sl22tPHx e4U3cRH5XZgfAAJupR9jQCdm ZnQ6 VWAuYcMqwP39eHBmLGieDy2g yFsosXcjGL5kOLYbyhgcDBPo cX6rVYJxxLXitMiyTP6iIMBc bjtm n959OlChQOG6OEPfhQOaP1Xh hX0aCqWkSXImTCOhU6TboYCp FPecH861GGdfLeO0HZVjjpFm Y2Fs XLTzmSspVzT6x1T5Le3Co9Vq bjrnAKO8EAwmBHOoKxGhZbHh RtP2Z8QtJel5KNRxkBisTK8p J3Bh IHAraxetjccmeCD8WRKcPOBc yS80bJJqXNeqUb4ju3G5l701 QNYeKVJqgE28Iw9alUuyHOHc dCBU cN4emqqio6nwdgtgOyCyUZSj LAv4CCy2WORfsWvvIdAgSMQ5 KgL7NBU0wAHueT7ssQtrjcze dG9w Oyc+S59aiW2mAKH7GBM1zfzz XJIaqhLgKV62FE94U1HqHnin dGFibGU+TZYxabMltCjbEI1g YmFj n2sfd1UbDZejD9VaJKUwBBzv Epj3TFXyKLD4wWC4cB0pKQYi XGrro8W0bWN1K4BqhmBwus9g b2xs LQQtBJqfQ40udKDls6O6TYGc rMO1WMOixKorZqJvtI09Dxp+ LGLpvKceh7WvFrwft3aii4se dGg9 AmDzFOEwajBjgAnjHFG7h7Pu Jb58V27kBBpgOLVnQSKcEMKt UOEqiLaeok9enS6gTa0+PGNv bCB3 cYC5pE0wFNQhAuY8SLfcO316 WyOygVCrLsyzg6add1fbrHm4 OnIuMELuylWrfOxbGAE2z0Zt Lz48 V14fMFlfVZOiZOOzWFGvQONc yZnhzr0dgB0cCd1+NF9id6io rg50dV97gZR+ITEhOAO3jFzm PSdw SUHyuY2cOBakVlF0XUMpQpPx uH52vFZwREclOn1miPzmkJwk BF5oJEAdekyuj535DkGbw8nc IDEw hBHkQGgpPHN2L15nm4E8IJQf PSRyZSB6oSY1bV2rcYblobeq bGVmdDsgdmVydGljYWwtYWxp Z246 IHRvcDsnPlBhdGllbnQgTmFt BBc4S3VnVpe2EXYfaVtvLC0l sJRkHRuiKy4goPoyzSzfGM8c NTBp hcrmc319DeMtb5gfAMFhlPEs UNatTSW1O71qg8S5UEPlPSLz UDV1uDW9gF4fkFjdmsowjRQg dDsg pdOlhNalSKznNFheL487GRCk sJrhByTuwnRhRYPffUJ4ZP53 GZ54dTNbf3I1bPE7T1FbXLIq bmct htutzUC6SCOoFMKobI48Yy7y xIcmHp3nEHEpFBZ6FPPbyKWs U8MvhZ7kDpKjHCWaCDDdD2Fd eHQt ZVidB566IJyqAuP8JBLbtrCi C8UgXSRvcNpeIfS8r0N6If3J N0O1VL90YX62tRIqh6Z5dXM5 J3Bh XMLcwkmsjvnomOQ5BNEmLXNi iZ16Ch5cmJtvBj6xXQXhLLQ9 WUAgnGThX0CoaG9vFjTzSRQx MDAw B1QblBWbHWirK658XOckNiL4 YIWeqfDgC3WsHAAduKofGmZ7 t4T8Un5YAIb3UN40SK37mIFe c3R5 aYD3C1BxULUhqtuguikhhYU7 MZLzOVMedV89Mx2hhWvaPd8s AWMxHVQ6XISxgKUhB5PttK6f OiAj OKTyLZWdE1HkkSXuSMavJ540 FIopFrR5UJSzyhKgZ1ZqHQJp vMbwQqK9c5I5Fs1EHIOdMU04 IFR5 gJN7HO65YC83I6BjZuegyLQv bGU+PHRhYmxlIHdpZHRoPScx BDYyQuQgaBwtEY5wIw5eOKQr LWNv eVhstRUbDrGdg4icYUInJCnd ZR3slJosV2MaoYK3AWGuo7p5 Om25O42uV6ZcxLX+PGNvbCB3 aWR0 gA0wUnGtDrG4ANplL435YrHq hRPuBhceg7vtx6obpLg2MmB5 ASLgtvHhbZjmBIH1h7KhTi27 Y29s IHdpZHRoPSIxNSUiIHZhbGln ja5tfC5gCa7+PZBbwOX8bNT4 nL6jJbAyPvK2SBzhI044RuFk cCIv Tvqcy5oog6awhPq4ElNqEHTn okJbtJsxTSF7d8AiKx36C0Tj uQsow9RaLqq9ea48cZDkp4T5 bGU9 B2EgOTWfwcllmRBvzWyjXA9u CXQiyvwnRFZkfQ0gYLCsK7a9 GnKvFkB3IJkrX3DfwrG8LZKt cHQg XBmeRFW6C34mh1N5EYUkNXMi UFV6uHC6wJ3xfBpzcrkfdZNz nUdvppCaoPbkDSnuCXknT767 IHRv nOcgAVKbqY6rIHHevXTlxMvs BX7tRLFyussiGjJAVk1ZEaaa IHDGXR1GJG92S1LhYkd1HFQi dHls ZZ4guMVxPNwqHn1kmSyyrAlh LO1tLKBppcrxBFEynG8eWXCk sLKbxYivRJ0yADTtryuol311 OiAx CPH2EMGdoGGoK2EbnJ2jAfFz UYXtEYGcV8MlqMLwSJzqP463 GMgsLvQ3BTQtjeOmL1JrBXIc aWdu KaY1e4S3Ow8mHo1uOd2lLDc2 LD33VC21dDNqp8B2tSU2F7Zd ZUKbfuchaofraMP0JHAoNIWx aW47 iPJsWFpaFc7cf4C0k316FQWz SCVoyJ82Fa9ybPpaHZPxbUXR hQ1wzjjvk3dhjoioNsKrKIIp MDt0 TRm4ZBSxdXwmFfBpMCG1GdL3 PDA3wBWwjH2jwTnimeyzeT2y Oyc+ZrVyLFPzyaL2Z3VxAod1 ZCBz qZeoHA9xsKKyPRekPy8tkNyw nPghVR8qAXZzjmwjFGLdyS5b VLYcmQHmsPweTX1iVGYhwphy b250 UbNgBEH6YEBzzKXiL0WsiW0r KtSzESHrFPJlG4TggFNoUIic E530GQonNiE3DKMtctWxJ3Ci LWFs hEomXsU1o9X9Bh6NQV8ysKM5 W0VrFjm5IIZqmYedEU2kcDTk WCoaIp8vjLyesSzvFK0eCCEc bjtw JVKizK2eZPNfbQWiiZggTH1m DYJljafey499JzYjSKJ9PDPp aJPlB7TrxM0uOfGuFEFcXVKc O3Rl sIFfHVleB634PGabCuY4DYQn tvZgY3DmHLAcwRsjLwA9o0M0 Nz3WkJYhFVQqGC46RE66CO21 L3Ry PjwvdGFibGU+PHRhYmxlIHdp TBStPUbpCDHnDqVbrBrcFO6p Qy0yPVDjDBSggZrepENaQvEl b2xs ACHxPFdkIS6orJrzL5ZquRZ0 YLHzo2g8Jp27J11iW8ErrIZ+ AEPleCO1zST3nR6pDdMmFuU1 YWxp F859XgBdsVLtJphsi2mez8ih xHq5NeHkVGPxzfXlmKvnQZO1 t2DuRy23Y80iYTktFEQoBUEr MCUi KVOflXwcgr1xaI2rGz6+PGNv gFZ0zZJ2bQ3iUpYiVoA6URqr M872KsXjpWFyQceyB10dW6Fi dXA+ PGIyYiz1KKPnxWnsXW6hnDQx TYsrXl7zIQW3ShNiQiAlRGjv L6TbNOUjadhimdtfkMJ4JRYf MDUw qJ12Ng9fuDdrKd1qPDFyKVU5 TFBopIKmN8AeqZ6bYaLkETEy NDVfP4ItwNOnYGakE452XOfp ZnQ7 CRHjtrWgY2UjQGJzrGvmFyP1 r9H8Ec8MwLpvkXFmKS8xJdEi CPl2Q0TkHnc1DREfjQnuNP8g cGFk EWxnIo9esPbvmKtwYK6iLQLy yokek045EtJqh8viVETyyUZv LRlxCLT9W00vr3A1XBGlRYDd MDA7 iBK0pG5cqEgutwzdaPThsUpo obUqsEtlUHtdEMfuV831QBWq cDhgQfLEGqi1F6HoFoo0AXOf dHls YH8jlRTnDWrkIb8bvHqeaQiu BB6rAEMofzlmn622BiVdc6kj LKYzlRYwKYxsZGO7D86gv6D3 ICMw ILJhPDU8oQQ3pP7ktIuulyzw bGVmdDsgdmVydGljYWwtYWxp Q667CBTtcAteUo9TTyy4K5Vw Pjx0 ZDSreInaLJ5xyFJiQNvcOo7m qUjybTstGC2sTIQyiqmww225 PzNkc9ywAFAbsFFsMMspZCC2 Y29s w8O5CQKdQOJgEKJ1zYL3uI7j bGlnbjogbGVmdDsgdmVydGlj WBywYEwuA187DZAgzKjbUrFv eWVy OjwvdGQ+TT97sr05J7VuEpqq Cjq9OPWzEON7cBR9iE0lSSWl GMpey6N5fUF2P7GnsvPszd2j b2xs YXBz (more content not included)... Normal [facility] Consent for Treatmenton 05-10 Consent for Treatment [id number]: 127 Normal [facility] Neurology Progress Noteon Neurology Progress Note EEG test complet ed on patient and she tolerated same well. Normal [facility] Physician Orderon 06-07-2022 Physician Order [id number] D:127 Normal [facility] XR Knee - right AP and Later raymond 05-28-2022 IMPRESSION: No acute osseous abnormality. Crisis Clinician: DONG Transcribe Date/Time: May 28 2022 4:27P Dictated by : BRAD MACIEL DO This examination was interpreted and the report reviewed and electronically signed by: CLAUDY ANTOINE MD on May 28 2022 5:13PM [facility] DIVISION OF RADIOLOGY * * *Final Report* * * DATE OF EXAM: May 28 2022 3:32PM LZX 5207 - XR KNEE 2V AP/LAT RT / PROCEDURE REASON: Right knee pain, unspecified chronicity * * * * Physician Interpretation * * * * EXAMINATION / TECHNIQUE: XR KNEE 2V AP/LAT RT CLINICAL INFORMATION ( PROVIDED BY ORDERING CLINICIAN) : Right knee pain, unspecified chronicity COMPARISON: None RESULT: No acute fracture or dislocation. Joint spaces are preserved. No joint effusion. DIVISION OF RADIOLOGY Provider, [facility] - 05/28/2022 * * *Final Report* * * DATE OF EXAM: May 28 2022 3:32PM LZX 5207 - XR KNEE 2V AP/LAT RT / PROCEDURE REASON: Right knee pain, unspecified chronicity * * * * Physician Interpretation * * * * EXAMINATION / TECHNIQUE: XR KNEE 2V AP/LAT RT CLINICAL INFORMATION ( PROVIDED BY ORDERING CLINICIAN) : Right knee pain, unspecified chronicity COMPARISON: None RESULT: No acute fracture or dislocation. Joint spaces are preserved. No joint effusion. IMPRESSION IMPRESSION: No acute osseous abnormality. Crisis Clinician: DONG Transcribe Date/Time: May 28 2022 4:27P Dictated by : BRAD MACIEL DO This examination was interpreted and the report reviewed and electronically signed by: CLAUDY ANTOINE MD on May 28 2022 5:13PM EST [facility] Radiology Study observation (narrative) Ashley Kim XR Knee - right AP and Later alOrdered By: Cc Provider on 05-28-2022 [facility] Coding Summary.on 04-19-2022 Coding Summary. CD:[id number] Gh0b Ww+PGhlYWQ+JS9WSPJeI43nn IInbN1EZ1dOFT8XFHXBCJERX U2UCB8geZG3JZxoC7EzxnGd EvbeuEFnSX29QVy0LII5lSum KQyhyL9bgZUzK2t8WhCxZD91 aV11KDzbXZCsHaD7RsTbkfda bWFy L2osDxXvzPQmXvm+PHRhYmxl IHdpZHRoPScxMDAlJyBzdHls UJ3cDh2mOUJmPPHziBejpQLs OiBj u2frOXKmRNugND8woUzmE3Sh qFN9RJFyi8y3Ag79aSF+PHRk MVX1rHocYJscv219ViNvs8bu IDM3 yFYlPYlpHEG0T83cj5O4NZLq ELUaRCL3oVT6pL6ysGqlawcy L8CqhARqPgW0JWX7aAAfqH8d bGln uvtazF7nBci+N45MVZ8IYBBJ AO6TMde1G7WyLifozME+PC90 IBNiHY20lETauYGnx1tzaVj0 JzEw ITBbWCZ4fUmoXNoqu9ClSBKn F25gkEBxr4S2PMOhvMmayPJg WlBbdDW2tI6jZNdqavhml0ro dzsn Itfmr9avoo37eS85G09qOVcw HOAcBXW3EDBcGVBkyOlbcp9l eA4lUi4+NBteq5pdg7nzhFj8 IjIw KBJeqzCefZgvBIP4b9OvLp56 C3CfqCsfi7UiFvv7ck97xYBn k9W2rSY5WEddRHGnnN5jGOmf ZnQ6 LVNuBlWzaM84sVAzNWkfHo3n sCqxtKlvUC1oGJVisgegKHEd qZ8bTFLpzEXoqOfiIZ9kTUEb bjtm a239SlCeHWA7UCVdgWPqB5Tm rJ5iZuHdIYIbYAAfG0FuzDQa HMzgT006EXztZmM4ECAjieTb Y2Fs AJLftJgnUuS1z1Z3Un6Wq4Xo ltkpTUU8QZglXDM9TkOzZzXw KbO4I6YtRxn7OFFzbOclKT1a J3Bh VEFxvrlcjahafOB0UKCmMOSq jX46pEWvSXifNm2hd4F6a143 TTEqLUDzkP46Ju0dnCdoBPGa dCBU qO2cghnyr6zvhzchMeGmDTFs EVg2ROw8AZNuyDdgRlTeSJD1 ShA7JRS2uJFdhA4gmFfdxunz dG9w Oyc+D71chG2rWKP1OFX4xbvn JKXjdqBsOZ32MN97N4QvOdus dGFibGU+XMEqzpAmzEidID6k YmFj h2ihe5UwIOvnD6FvFOAcAAqf Htd5EMVvMVE5mHP0aV6iGFFb IJlro5N9xKC8I4YehhTcgj8l b2xs RWYcMZvtF91wrYLwn3J0OUPx rLG1TBTggScdTiMdzH72Yac+ PKRzyOxac7GsRwffv1vzl0ti dGg9 NaFqSCWcihAgqFoiKLF2h0Ot Cw85B06dBWojHZSsIVHfNYNa OABimStyho5fhE0lXe7+PGNv bCB3 kEP9nA2iGQRkDeT5WLhfK935 EpSanBZcQmbns1jqm1bioQy5 CzLsGBObzeSszLarJYM0n7Zm Lz48 P02qDLwtLGNwXHSjQTPrTFRp uUpngy2lfV5wAr0+TV5ii0lp fw49kQ98vGN+VFBpBEJ6lYif PSdw XTGixD5lPRssDkT3ZXOpWkVv jX64vBYdGLtlCe9avWsiaIdc FV6yEHYgbjazu862DaNrb9if IDEw oAFnKMdxVBR6W49pj4N7CRYz OVDsKFO8dQI6dR5xcRdxvskv bGVmdDsgdmVydGljYWwtYWxp Z246 IHRvcDsnPlBhdGllbnQgTmFt SEi4E3LuCqo1JWYzyHzpLW7o qVRsOFcmBa4oxDcscPucIQ3g NTBp muwjv230BzSrs2cjFLEsuDUy DZtxAQV2O08no4V8MCBbZQOa WDG7rBU8uH0ciVcmuwxolKDo dDsg dxMohLrpTJtgBXdlK913GQZx lSmqVcLcffUxPGWlzIQ0BK92 IV78fCHft5Q9lZL1Q3JtQCMi bmct zxsjuUF9HSEmEWKqwR98Hv2e vOpxSp0nLVJoAQO7TMXciRVz V1BnoR3bPjJlPUOrBVByA0Yc eHQt UShhY472MAmgWlW9MIKwgfHh U0HdRTVhwRkbQcO1y6Q3Dl5K A0K4LR18UQ88yWKmr4A9fMN5 J3Bh BXTyllbtqvvdbAT9UWGeYRDs wR90Ez0hzCeoGn7tVQUvXCV5 JKMesPKhP5ArzF1hAqUbZYZh MDAw S4LpcILaMUbaX991OWgqYwQ3 AALojbRuJ5ZkHNQpdJbiNaF6 d2A8Te5CXJf9WJ41TW87nSZb c3R5 kZW7M8FkUXJghazcmnvciZZ1 LLUbMOEaaV95Bo4cqOgkVl6t NROgNAC0MKCxzBQiX5OmmE9j OiAj ZEVoIKOvB5KfmSDlPHzsR737 BIxrXiP9KIGtdsIgG0LtLMBo mRphZoU1o2I0Fa1FVMFzGB80 IFR5 kGU5SS33PR09F1XoPkwxcVLz bGU+PHRhYmxlIHdpZHRoPScx HQEtNoOwnGybLI8pTu8uQVPs LWNv zSrbaKNbYbKwk1euRLDyESig CD3qxQtkK9HwoHG7IENdf8n4 Em87E63pM9WddLP+PGNvbCB3 aWR0 cD8cRvEbYbG0IPlkL783ItVp nCGhBgegz8zvw5xhwAd6XcC7 GNSlakNdtLslKWN4h7KwQt17 Y29s IHdpZHRoPSIxNSUiIHZhbGln ed8nuK1fPn5+FDFqmHX8qFR9 xV3mXxDxPhZ4FWekK071OaKw cCIv Oukfd1rtn5cceUt9GfBlTJLy nyZsxLvtAKE1c1LqEz64V8Bb cMqri7RnVuc9ar56vSSgi5E3 bGU9 A2PmTRRirnureKYtcQpxIZ1e MAEyhkdkUOZkdJ1cZLVuH7s8 GuTgYzP1MJpzF8KmflE5FHDw cHQg PWzaAFO1P84kr4W0SXKfJPKg TZW0kYH2eD9pbAofuacviRRt iMmfdfXutBmzSUhoQKbnD830 IHRv wPvpEVGmdR4nTQHuwRMptYlb ZF5aWCUhvwtjDsZPLo5FKuym HUDQXM5DTU61G5UyEpa3UQRm dHls AL1onDJtGHodBx2vjOicjQbk EA4tHVLwcgfvFIKhvT6lQRWt xTJcnAbwPK8sGFNawvwim318 OiAx XHU1XJXzkLKbC0YmxT3eYeYb IKLeDPSuV0QzxDIvPRjzT032 QIpkIzB4MYFwztUnQ9AvGFEc aWdu RqY9k8Y6Ct7tWm9vTr6cWVt2 TB04AD06mWWbl9F1rTA6C0Bq TFHxoqyrphduwMN3CWLiBQWy aW47 fEPnDZjgXl1kc9R3q439CGSc BAUacQ96Yg9waJzmAAQxhIMU dR4phkmwr7ktptlgPqBcKZRu MDt0 ZNb3XOVtdLgbIcTtHCY6IkQ9 KIU7qDHbnV1dpUrcvotlbI5y Oyc+NoElDQVrmqW0K8AtIva3 ZCBz bMqkYI4xwUHhFNmoNn7mxVrp eGiwYD0eBEQroajgRWEsoI0t MEEtoDBeiYvoLX7tHNWpygnj b250 QmHkQJR4PYEmnEZfW4CujX4d ZbOjPGPpOLCbT9QqjRFzKMxo G088SHegCyM0CSFzycPzN4Pf LWFs sBmqKfU1t3Q3Uh3GZR5uyND6 B7SkUcy4PFPdqFzlIO9nmYAz QVlmTl4vrZvnlYiiNI5uYVJk bjtw OOAqhR4eMZLebIGxuHimWE5q IQPbcoilm445QbVvMGQ8OHUi cNQwZ2AbzU1vZiRhZNCuUDWl O3Rl hMDoFVobL435JHgvJzM6DPDq dlHbA9UjWOPpzVrjAaQ9r8E3 Yv0DjEQsL7PgA8s7G4VxLbbh dHI+ ES10MQSdNC37kJOaeOMvd1yb aEa4NbDkMPQbVXL8wMwbXXly f2RvYHHnL30ceZDok0X9XRFm bGxh nTZuHcVseMJ7rA7eBTcgccym k8yuoqkjGwlqx7dabe11lT78 V06bYJbtHLVsSSEvWWAgZBWz bGln zn3rhA4cAh9+DLTvcKA1hAU2 zM6kUdSbCdH1POeeA315MhSl sCOaAilyc6vra9rdhEg6VaEf JSIg zjIquXamCGD9i0JmZr38C15o IHdpZHRoPSIyMCUiIHZhbGln ov4itN1jBv8+UG5ka4noxt79 cD48 dHI+UWDgNWT2rUlcNRtkWPAp iL9pQIwlYeE6CKTmAdOcuC22 pMKaEUsvZk0pkUfodCwlEX0a NTBp tbmmx408ZfFbu2lqXYQafXXo ULgoMHD0N57jl8K6UXYtRZHh OVA6oVD4bA2bhKmuwewvkUKj dDsg kpMraNomXTnhYCtaM627YTLc eGkrEsUrxMOcD2nrkjUGYV5f OjwvdGQ+ZFZxIPU5aTuhWThu YWRk iZ3zXZPpR0r1PvOyFqB9YEah N9YrhlJ0RYVckDGcSMGnkSBY iB5ekbrdm3qlhtlkQqClMVJk MDt0 JPl8XGQtvXjwDiMdKTR1CaA9 CKV2nNEkdU6ibXywjkqvoO7s Oyc+RklOOjwvdGQ+PHRkIHN0 eWxl WGbiZYVhkO7zXQOzM9t1JvKu TrV5LPriF4PbrdD2KLIpsEEy JKPlvAJZpB6asavcl7gvabee IzAw VEObBDh4GAr6RRUvjZpnNfRo KQL6AuP9BNJ9hANguN0nnLkz gibkrE7zLmy+TVJOOjwvdGQ+ PHRk NEL2eMtfYZebINDklA7mETAq T8r7WhFrQcB7HAfcM2XchdB8 MSDziVLyMRQieOLJjB1vrynd b2xv pmptZeIlCWNyMZq7MJo2PUSm yXpcKhUqXWC5XfY1PCX9aMPp pE6sxNjrfvwmrH2nDre+UGF5 ZXI6 AJ65ZK32I6PpBjdzgAHtpIX+ PHRhYmxlIHdpZHRoPScxMDAl OgAdqNqkOY5rBx5hHHNnMWIj bGxh cHNl (more content not included)... Normal [facility] Discharge Instructionson Discharge Instructions [id number] :127 Normal [facility] US LE Venous Duplex Righton 04-17-2022 US LE Venous Duplex Right Exam Date/Time: 04/16/2022 19:54 EDT Reason for Exam: Leg pain Report IMPRESSION: NO RIGHT LOWER EXTREMITY DVT IDENTIFIED. EXAM: US LE Venous Duplex Right DATE: 04/16/2022 CLINICAL HISTORY: Leg pain. COMPARISON: None available. TECHNIQUE: Grayscale, compression, color and waveform Doppler analysis of the right lower extremity venous systems was performed with augmentation. Spectral Doppler waveforms were evaluated for spontaneity, phasicity and appropriate augmentation. FINDINGS: There is no deep or superficial venous thrombosis, abnormal masses, organized fluid collections, or other findings of concern identified within the right lower extremity. FINAL REPORT Dictated: 04/17/2022 6:55 am Saji Sam MD Signed (Electronic Signature): 04/17/2022 6:55 am Signed by: Saji Sam MD Transcribed by: HAILEE Technologist: LAQUITA Rapp [facility] XR Knee Complete 4+ Views [facility] 04-17-2022 XR Knee Complete 4+ Views Right Exam Date/Time: 04/16/2022 18:46 EDT Reason for Exam: Pain, Traumatic Report IMPRESSION: NEGATIVE RIGHT KNEE. EXAM: XR Knee Complete 4+ Views Right DATE: 04/16/2022 CLINICAL HISTORY: Pain, Traumatic. COMPARISON: None available. TECHNIQUE: AP, lateral, internal and external oblique radiographs of the right knee were obtained. FINDINGS: There is no fracture, significant joint effusion, degenerative changes, dislocation, worrisome bone destruction, radiodense foreign bodies, or pathologic calcifications identified. FINAL REPORT Dictated: 04/17/2022 6:44 am Saji Sam MD Signed (Electronic Signature): 04/17/2022 6:44 am Signed by: Saji Sam MD Transcribed by: HAILEE Technologist: BOGDAN [facility] Auto Diffon 04-16-2022 Basophils/100 WBC (Bld) 0.7 % Normal 0.0-2.0 [facility] Comment on above: Order Comment: Order Added by Discern Expert. Performed By: #### 2 807288, 2612207, 35852265, 9953930, 6391100, [id number] ####[address] [place] [address] Basophils/Leukocytes Auto (Bld) [Pure # fraction] 0.1 E9/L Normal 0.0-0.2 [facility] Comment on above: Order Comment: Order Added by Discern Expert. Performed By: #### 2 076839, 1574796, 04139042, 4470572, 7102865, 83905676 ####[address] [address] Eosinophils/100 WBC (Bld) 2.7 % Normal 0.0-8.0 [facility] Comment on above: Order Comment: Order Added by Kirstin Expert. Performed By: #### 2 187710, 4022775, 00095913, 6640151, 1025993, 66587217 ####[address] [address] Eosinophils/Leukocytes Auto (Bld) [Pure # fraction] 0.2 E9/L Normal 0.0-0.5 [facility] Comment on above: Order Comment: Order Added by Kirstin Expert. Performed By: #### 2 139723, 2483664, 65638853, 3568583, 2747839, 58199383 ####[address] [address] Lymphocytes/100 WBC (Bld) 21.2 % Normal 14.0-50.0 [facility] Comment on above: Order Comment: Order Added by Discern Expert. Performed By: #### 2 502279, 4085451, 55786827, 0362542, 1780879, 61191741 ####[address] [address] Lymphocytes/Leukocytes Auto (Bld) [Pure # fraction] 1.7 E9/L Normal 1.0-4.0 [facility] Comment on above: Order Comment: Order Added by Discern Expert. Performed By: #### 2 993390, 9040639, 65174646, 4121551, 2282445, 73755511 ####[address] [place] [address] Monocytes/100 WBC (Bld) 6.7 % Normal 4.0-14.0 [facility] Comment on above: Order Comment: Order Added by Discern Expert. Performed By: #### 2 336585, 8075744, 73671143, 0051378, 1233556, 91002436 ####[address] [place] [address] Monocytes/Leukocytes Auto (Bld) [Pure # fraction] 0.5 E9/L Normal 0.2-1.0 [facility] Comment on above: Order Comment: Order Added by Discern Expert. Performed By: #### 2 185834, 0766261, 34957711, 8694685, 3300789, 63807576 ####[address] [address] Neutrophils/100 WBC (Bld) 68.7 % Normal 36.0-75.0 [facility] Comment on above: Order Comment: Order Added by Discern Expert. Performed By: #### 2 224122, 4263157, 58940544, 5841562, 4635811, 99305545 ####[address] [address] Neutrophils/Leukocytes Auto (Bld) [Pure # fraction] 5.4 E9/L Normal 2.0-7.5 [facility] Comment on above: Order Comment: Order Added by Discern Expert. Performed By: #### 2 703307, 1678520, 94631372, 2986975, 0542745, 94141886 ####[address] [place] [address] BMPon 04-16-2022 Creatinine [Mass/Vol] 0.7 mg/dL Normal 0.5-1.3 [facility] Comment on above: Performed By: #### 2 421670, 0390633, 02707090, 7334528, 3759425, 48160636 ####[facility] [address] [place] [address] Urea nitrogen [Mass/Vol] 17 mg/dL Normal 5-21 [facility] Comment on above: Performed By: #### 2 887941, 5151913, 60147273, 9220912, 0588160, 14201696 ####[facility] [address] [place] [address] Urea nitrogen/Creatinine [Mass ratio] 24 No Units High 10-20 [facility] Comment on above: Performed By: #### 2 817189, 9370743, 37097715, 2153055, 3875592, 28346297 ####[facility] [address] [place] [address] Anion gap [Moles/Vol] 11 mmol/L Normal 6-16 [facility] Comment on above: Performed By: #### 2 095937, 7524249, 54195931, 0786661, 3232424, 39458947 ####[facility] [address] [place] [address] Calcium [Mass/Vol] 9.2 mg/dL Normal 8.9-11.1 [facility] Comment on above: Performed By: #### 2 830364, 0855745, 94445706, 6055031, 4401677, 87938315 ####[facility] [address] [place] [address] Chloride [Moles/Vol] 106 mmol/L Normal 101-111 [facility] Comment on above: Performed By: #### 2 850318, 4852568, 09387169, 2135541, 3893675, 33638789 ####[facility] [address] [place] [address] CO2 [Moles/Vol] 25 mmol/L Normal 21-[address] [facility] Comment on above: Performed By: #### 2 240106, 0756725, 52794498, 2316395, 2034704, 64463243 ####[facility] [address] [place] [address] Glucose [Mass/Vol] 93 mg/dL Normal 55-199 [facility] Comment on above: Result Comment: If t his glucose result represents a fasting glucose, interpretation should refer to the following reference range: 55-99 mg/dL Performed By: #### 2 890092, 0145987, 48882694, 7835665, 6362368, 24203047 ####[facility] [address] [place] [address] Potassium [Moles/Vol] 4.7 mmol/L Normal 3.5-5.3 [facility] Comment on above: Performed By: #### 2 380979, 9320745, 30327225, 0318247, 2660503, 12456295 ####[facility] [address] [place] [address] Sodium [Moles/Vol] 137 mmol/L Normal 135-145 [facility] Comment on above: Performed By: #### 2 695026, 4005643, 09135394, 7848487, 7302796, 78898400 ####[facility] [address] [place] [address] CBC w/ Auto Diffon Erythrocyte distribution width (RBC) [Ratio] 14.7 % High 10.9-14.2 [facility] Comment on above: Performed By: #### 2 234560, 3081815, 22935250, 6151691, 6992143, 46188373 ####[facility] [address] [place] [address] Hematocrit (Bld) [Volume fraction] 36.4 % Normal 34.0-46.0 [facility] Comment on above: Performed By: #### 2 197667, 3004039, 00409283, 5163642, 6391165, 19444200 ####[facility] [address] [place] [address] Hemoglobin (Bld) [Mass/Vol] 12.0 g/dL Normal 12.0-16.0 [facility] Comment on above: Performed By: #### 2 499294, 4394998, 67946617, 4236835, 1995809, 10262850 ####[facility] [address] [place] [address] MCH (RBC) [Entitic mass] 26.4 pg Low 27.0-34.0 [facility] Comment on above: Performed By: #### 2 835345, 8529567, 77229308, 0482644, 6629880, 04188243 ####[facility] [address] [place] [address] MCHC (RBC) [Mass/Vol] 32.9 g/dL Normal 31.4-36.0 [facility] Comment on above: Performed By: #### 2 184623, 2155612, 83478093, 8266481, 8010596, 04972743 ####[address] [address] MCV (RBC) [Entitic vol] 80.2 fL Normal 80.0-100.0 [facility] Comment on above: Performed By: #### 2 246001, 3734452, 42885091, 1756275, 8191223, 33229907 ####[address] [address] Platelet mean volume (Bld) [Entitic vol] 8.2 fL Normal 6.4-10.8 [facility] Comment on above: Performed By: #### 2 299057, 8782490, 62559969, 0395856, 5377756, 62834240 ####[address] [address] Platelets (Bld) [#/Vol] 360.0 E9/L Normal 150. 0-500. 0 [facility] Comment on above: Performed By: #### 2 497300, 6679407, 23652116, 7065695, 9435464, 41961352 ####[address] [place] [address] RBC (Bld) [#/Vol] 4.5 E12/L Normal 4.3-5.9 [facility] Comment on above: Performed By: #### 2 [id number] ####[facility] [address] [place] [address] WBC corrected for nucl RBC Auto (Bld) [#/Vol] 7.9 E9/L Normal 4.0-11.[address] [facility] Comment on above: Performed By: #### 2 [id number] ####[facility] [address] [place] [address] CHEMISTRYOrdered By: SYSTEM SYSTEM on 04-16-2022 Anion gap [Moles/Vol] 11 mmol/L Normal 6 - 16 mEq/L [facility] Remisol Calcium [Mass/Vol] 9.2 mg/dL Normal 8.9 - 11. 1 mg/dL [facility] Remisol Chloride [Moles/Vol] 106 mmol/L Normal 101 - 1 11 mmol/L [facility] Remisol CO2 [Moles/Vol] 25 mmol/L Normal 21 - 31 mmol/L FT Remisol Creatinine [Mass/Vol] 0.7 mg/dL Normal 0.5 - 1.3 mg/dL FT Remisol CRP [Mass/Vol] 9.8 mg/dL High <=1.9mg/dL [facility] Remis ol GFR/1.73 sq M.predicted among blacks MDRD (S/P/Bld) [Vol rate/Area] mL/min/1.73 m2 Normal >=59mL/min /1.73 m2 [facility] Chem S GFR/1.73 sq M.predicted among non-blacks MDRD (S/P/Bld) [Vol rate/Area] mL/min/1.73 m2 Normal >=59mL/min /1.73 m2 [facility] Chem S Glucose [Mass/Vol] 93 mg/dL Normal 55 - 199 mg/dL FT Remisol Potassium [Moles/Vol] 4.7 mmol/L Normal 3.5 - 5.3 mmol/L [facility] Remisol Sodium [Moles/Vol] 137 mmol/L Normal 135 - 145 mmol/L [facility] Remisol Urea nitrogen [Mass/Vol] 17 mg/dL Normal 5 - 21 mg/dL [facility] Remisol Urea nitrogen/Creatinine [Mass ratio] 24 mg/mg High 10 - 20 [facility] Remisol CRPon 04-16-2022 CRP [Mass/Vol] 9.8 mg/dL High <=1.9 [facility] Comment on above: Performed By: #### 2 [id number] ####[facility] [address] [place] [address] Consent for Treatmenton Consent for Treatment [id number]: 127 Normal [facility] ED Clinical Summaryon 2021 ED Clinical Summary (Inserted Image. Sana ble to display) [place] [id number] ED Clinical Summary Person Information Name: VIJAYA TINSLEY [facility] Age: 26 Years : 1995 Sex: Female Language: Panamanian PCP: DIONNE CHAMBERS DO Marital Status: Single Visit Id: Visit Reason: Knee pain-swelling; right knee swelling, pain, feels hot Speciality: Acuity: 4 Enc Type: Emergency Med Service: Emergency Arrival: 04/16/2022 17:17:23 Discharge: 04/16/2022 20:36:55 LOS: 000 03:19 Checkin: 04/16/2022 17:17:23 Checkout: 04/16/2022 20:36:55 Dispo Type: Home (Routine DC) EVENTS: Event Name Event Status Request Date/Time Start Date/Time Complete Date/Time Arrive Complete 04/16/2022 17:17:23 04/16/2022 17:17:23 04/16/2022 17:17:23 Document Home Meds Request 04/16/2022 17:17:23 Triage Complete 04/16/2022 17:17:23 04/16/2022 17:53:17 04/16/2022 17:53:17 Registration Complete 04/16/2022 17:23:11 04/16/2022 17:23:11 04/16/2022 17:23:11 Reg Complete Request 04/16/2022 17:23:11 Reg Bed Request Complete 04/16/2022 17:23:11 04/16/2022 17:23:11 04/16/2022 17:23:11 X-Ray Complete 04/16/2022 17:52:46 04/16/2022 18:29:56 04/16/2022 18:46:11 Bed Assign Complete 04/16/2022 17:54:44 04/16/2022 17:54:44 04/16/2022 17:54:44 Dr Exam Complete 04/16/2022 17:54:44 04/16/2022 17:56:13 04/16/2022 17:56:13 RN Exam Complete 04/16/2022 17:54:44 04/16/2022 18:03:53 04/16/2022 18:03:53 Registration Request 04/16/2022 17:56:13 Pending Labs Complete 04/16/2022 18:07:53 04/16/2022 19:12:53 Lab Complete 04/16/2022 18:07:53 04/16/2022 19:12:53 US Complete 04/16/2022 18:07:53 04/16/2022 19:07:32 04/16/2022 19:54:43 Pending Labs Complete 04/16/2022 18:45:54 04/16/2022 18:45:54 04/16/2022 19:12:54 Lab Complete 04/16/2022 18:45:54 04/16/2022 18:45:54 04/16/2022 19:12:54 Wet Read Complete 04/16/2022 18:46:11 04/16/2022 18:49:44 04/16/2022 18:49:44 Pending Labs Complete 04/16/2022 18:53:49 04/16/2022 18:53:49 04/16/2022 18:53:56 Lab Complete 04/16/2022 18:53:49 04/16/2022 18:53:49 04/16/2022 18:53:56 Dr Exam Complete 04/16/2022 20:07:19 04/16/2022 20:07:19 04/16/2022 20:07:19 Meds Admin Complete 04/16/2022 20:12:50 04/16/2022 20:21:40 Discharge Complete 04/16/2022 20:25:35 04/16/2022 20:37:01 04/16/2022 20:37:01 Transfer Complete 04/16/2022 20:37:01 04/16/2022 20:37:01 04/16/2022 20:37:01 ADDRESS: [address] [place] [id number] PHYS DOC NOTES: Addendum by Gold Shearer DO on April 16, 2022 20:25:50 EDT MEDICAL INFORMATION: Prescriptions Given: PATIENT EDUCATION INFORMATION: Instructions: Acute Knee Pain, Adult, Sofy-bv-Cwsf Follow up: With: Address: When: DIONNE CHAMBERS [address] [place], [place] [id number] [facility] (1) In 3 days 04/19/2022 Comments: You can use ibuprofen, Tylenol every 6 hours as needed for pain. Please follow-up with your orthopedic doctor for further evaluation and management. Please return to the ED for any new or worsening symptoms. DIAGNOSIS: Knee pain Normal [facility] ED Note-Nursingon 04-16-2022 ED Note-Nursing PT to ultrasound via wheelchair. Normal [facility] ED Note-Physicianon 04-16-20 ED Note-Physician Basic Information Time Seen: Luca Botello DO 04/16/2022 17:56 Chief Complaint R knee swelling and warmth that started today. Pt walked on leg yesterday, usually in WC. States yusef has blood clot and wants ultrasound. History of Present Illness 26 female presents emergency department with pain and swelling and warmth sensation to the right knee. Patient states that she just had a knee surgery with Dr. Maldonado from [facility] at the end of March. Since then she has been rehabilitating and doing well without any injuries or complaints. Over the last 24 to 48 hours she has developed some swelling and discomfort to the right knee particularly to the distal thigh proximal to the patella. She denies any injuries with this. She tried to see her surgeon today was unable to do so she presented to multiple different emergency departments that were too busy and she ended up coming here for evaluation. Her primary concern is a possibility of a blood clot but she complains of no pain in the posterior calf region. She has been taking ugtp-trq-vykdmfn medications without relief of symptoms. She denies any fevers or chills no redness or drainage. No other aggravating or relieving factors no other associated symptoms no other prior treatments or complaints. Family: Reviewed and noncontributory Social: lives at home Review of systems negative unless otherwise specified in the HPI. Physical Exam Vitals & Measurements T: 36.9 ?C(Oral) HR: 97(Peripheral) RR: 16 BP: 127/83 SpO2: 100% HT: 157.0 cm HT: 157 cm WT: 100.0 kg WT: 100 kg BMI: 40.57 Vital Signs reviewed and noted. General: Alert, no acute distress, patient resting comfortably Skin: warm, intact, no pallor noted incisions over the knee are clean, dry, intact no redness drainage no pus. Head: Normocephalic, atraumatic Eye: Normal conjunctiva Cardiac: Normal peripheral perfusion Respiratory: No acute distress Musculoskeletal: Right lower extremity examination: Patient does complain of some tenderness to palpation to the anterior portion of the right lower extremity proximal to the knee in the patellar bone and tendon. Patient does have tenderness primarily laterally but there is no focal bony tenderness to palpation. Calves are soft and nontender incision described above. There is some pain with range of motion but this would be expected after surgery. Neurological: alert and oriented, normal sensory and motor observed. Psychiatric: Cooperative Medical Decision Making Ultrasound x-ray and labs were ordered and pending. Ultimately patient is signed out to the oncoming physician for final disposition and treatment plan. Assessment/Plan Knee pain (M25.569: Pain in unspecified knee) Orders: Basic Metabolic Panel C-Reactive Protein CBC w/ Auto Diff Sedimentation Rate Automated US LE Venous Duplex Right XR Knee Complete 4+ Views Right Disposition Plan Discharge Prescription List Prescriptions No active prescription medications Follow-up No qualifying data available Problem List/Past Medical History Ongoing Asthma Cerebral palsy Feeling of incomplete bladder emptying Frequency of urination Head ache Hypertension Neurogenic bladder OAB (overactive bladder) POTS (postural orthostatic tachycardia syndrome) UTI (urinary tract infection) Historical No qualifying data Procedure/Surgical History Procedure on ankle. Medications Inpatient No active inpatient medications Home Colace phentermine 37.5 mg oral tablet, 37.5 mg= 1 tab(s), Oral, Daily, Unable to obtain trospium 60 mg oral capsule, extended release, 60 mg= 1 cap(s), Oral, Daily, 5 refills trospium 60 mg oral capsule, extended release, 60 mg= 1 cap(s), Oral, Daily, 3 refills Allergies ZyrTEC (Hives) amoxicillin (Diarrhea) Social History Alcohol - Denies Alcohol Use, 04/16/2022 Substance Abuse - Denies Substance Abuse, 04/16/2022 Tobacco - Denies Tobacco Use, 04/16/2022 Never (less than 100 in lifetime) Tobacco Use:. Never Smokeless Tobacco Use:., 11/25/2021 Family History Hypertension: Mother. Lab Results No qualifying data available. Diagnostic Results No qualifying data available. Patient signed out to me pending lower extremity duplex. Lower extremity duplex without any signs of DVT. Patient is given Tylenol for headache. She is discharged home to follow-up with her primary care doctor. Normal [facility] Comment on above: Result Comment: Elec tronically Signed By: Gold Shearer DO\.br\Date and Time Signed: 04/16/22 20:26 EDT ED Patient Education Noteon 04-16-2022 ED Patient Education Note Orthopedics Acute Knee Pain, Adult Many things can cause knee pain. Sometimes, knee pain is sudden (acute) and may be caused by damage, swelling, or irritation of the muscles and tissues that support your knee. The pain often goes away on its own with time and rest. If the pain does not go away, tests may be done to find out what is causing the pain. Follow these instructions at home: Pay attention to any changes in your symptoms. Take these actions to relieve your pain. If you have a knee sleeve or brace: ? Wear the sleeve or brace as told by your doctor. Remove it only as told by your doctor. ? Loosen the sleeve or brace if your toes: ? Tingle. ? Become numb. ? Turn cold and blue. ? Keep the sleeve or brace clean. ? If the sleeve or brace is not waterproof: ? Do not let it get wet. ? Cover it with a watertight covering when you take a bath or shower. Activity ? Rest your knee. ? Do not do things that cause pain. ? Avoid activities where both feet leave the ground at the same time (high-impact activities). Examples are running, jumping rope, and doing jumping jacks. ? Work with a physical therapist to make a safe exercise program, as told by your doctor. Managing pain, stiffness, and swelling ? If told, put ice on the knee: ? Put ice in a plastic bag. ? Place a towel between your skin and the bag. ? Leave the ice on for 20 minutes, 2?3 times a day. ? If told, put pressure (compression) on your injured knee to control swelling, give support, and help with discomfort. Compression may be done with an elastic bandage. General instructions ? Take all medicines only as told by your doctor. ? Raise (elevate) your knee while you are sitting or lying down. Make sure your knee is higher than your heart. ? Sleep with a pillow under your knee. ? Do not use any products that contain nicotine or tobacco. These include cigarettes, e-cigarettes, and chewing tobacco. These products may slow down healing. If you need help quitting, ask your doctor. ? If you are overweight, work with your doctor and a food expert (dietitian) to set goals to lose weight. Being overweight can make your knee hurt more. ? Keep all follow-up visits as told by your doctor. This is important. Contact a doctor if: ? The knee pain does not stop. ? The knee pain changes or gets worse. ? You have a fever along with knee pain. ? Your knee feels warm when you touch it. ? Your knee gives out or locks up. Get help right away if: ? Your knee swells, and the swelling gets worse. ? You cannot move your knee. ? You have very bad knee pain. Summary ? Many things can cause knee pain. The pain often goes away on its own with time and rest. ? Your doctor may do tests to find out the cause of the pain. ? Pay attention to any changes in your symptoms. Relieve your pain with rest, medicines, light activity, and use of ice. ? Get help right away if you cannot move your knee or your knee pain is very bad. This information is not intended to replace advice given to you by your health care provider. Make sure you discuss any questions you have with your health care provider. Document Released: 10/21/2009 Document Revised: 01/04/2019 Document Reviewed: 01/04/2019 Elsevier Patient Education ? 2019 [employer]. Normal [facility] ED Patient Summaryon 022 ED Patient Summary (Inserted Image. Sana ble to display) [address] [address] Patient Discharge Instructions Person Information Name: VIJAYA TINSLEY Age: 26 Years Arrival Date: 04/16/2022 17:17:23 Discharge Diagnosis: Knee pain Primary Care Physician: DIONNE CHAMBERS DO Provider Information Primary Provider: Luca Botello DO Advanced Fish Checker:None The exam and treatment you received in the Emergency Department were for an urgent problem and are not intended as complete care. It is important that you follow up with a doctor, nurse practitioner, or physician?s bookkeeper assistant for ongoing care. If your symptoms become worse or you do not improve as expected and you are unable to reach your usual health care provider, you should return to the Emergency Department. We are available 24 hours a day. VIJAYA TINSLEY has been given the following list of patient education materials, prescriptions and follow-up instructions: Follow-up Instructions: With: Address: When: DIONNE CHAMBERS [address] [place] [address] [phone] Business (1) In 3 days 04/19/2022 Comments: You can use ibuprofen, Tylenol every 6 hours as needed for pain. Please follow-up with your orthopedic doctor for further evaluation and management. Please return to the ED for any new or worsening symptoms. In the event that this physician does not participate in your insurance network, please consult with your insurance company to find a nearby participating provider. Patient Education Materials: Acute Knee Pain, Adult, Gohr-oz-Yjkw A MESSAGE TO ALL PATIENTS REGARDING OPIOIDS PRESCRIPTION OPIOIDS: WHAT YOU NEED TO KNOW Prescription opioids can be used to help relieve hllmttwf-tk-fqqrsy pain and are often prescribed following a surgery or injury, or for certain health conditions. These medications can be an important part of the treatment but also come with serious risks. It is important to work with your healthcare provider to make sure you are getting the safest, most effective care. WHAT ARE THE RISKS AND SIDE EFFECTS OF OPIOID USE? Prescription opioids carry serious risks of addiction and overdose, especially with prolonged use. An opioid overdose, often marked by slowed breathing, can cause sudden . The use of prescription opioids can have a number of side effects as well, even when taken as directed: ? Tolerance?meaning you might need to take more of the medication for the same pain relief ? Physical dependence?meaning you have symptoms of withdrawal when a medication is stopped ? Increased sensitivity to pain ? Constipation ? Nausea, vomiting, and dry mouth ? Sleepiness and dizziness ? Confusion ? Depression ? Low levels of testosterone that can result in lower sex drive, energy, and strength ? Itching and sweating RISKS ARE GREATER WITH: ? History of drug misuse, substance use disorder, or overdose ? Mental health conditions (such as depression or anxiety) ? Sleep apnea ? Older age (65 years and older) ? Avoid alcohol while taking prescription opioids. Also, unless specifically advised by your health care provider, medications to avoid include: ? Benzodiazepines (such as Xanax or Valium) ? Muscle relaxants (such as Soma or Flexeril) ? Hypnotics (such as Ambien or Lunesta) ? Other prescription opioids KNOW YOUR OPTIONS Talk to your health care provider about ways to manage your pain that don?t involve prescription opioids. Some of these options may actually work better and have fewer risks and side effects. Options may include: ? Pain relievers such as acetaminophen, ibuprofen, and naproxen ? Some medication that are also used for depression or seizures ? Physical therapy and exercise ? Cognitive behavioral therapy, a psychological, goal-directed approach, in which patients learn how to modify physical, behavioral, and emotional triggers of pain and stress. IF YOU ARE PRESCRIBED OPIOIDS FOR PAIN: ? Never take opioids in greater amounts or more often than prescribed. ? Follow up with your primary health care provider. o Work together to create a plan on how to manage your pain. o Talk about ways to help manage your pain that don?t involve prescription opioids. o Talk about any and all concerns and side effects. ? Help prevent misuse and abuse o Never sell or share prescription opioids. o Never use another person?s prescription opioids. ? Store prescription opioids in a secure place and out of reach of others (this may include visitors, children, friends, and family). ? Safely dispose of unused prescription opioids: Find your community drug take-back program or your pharmacy mail-back program, or flush them down the toilet, following guidance from the Food and Drug Administration (www.fda.gov/Drugs/Resou rcesForYou). ? Visit www.cdc.gov/drugoverdose to learn about the risks of opioids abuse an (more content not included)... Normal [facility] HEMATOLOGYOrdered By: SYSTEM SYSTEM on 04-16-2022 Basophils/100 WBC (Bld) 0.7 % Normal 0.0 - 2.0 % [facility] Basophils/Leukocytes Auto (Bld) [Pure # fraction] 0.1 E9/L Normal 0.0 - 0.2 E9/L [facility] Eosinophils/100 WBC (Bld) 2.7 % Normal 0.0 - 8.0 % [facility] Eosinophils/Leukocytes Auto (Bld) [Pure # fraction] 0.2 E9/L Normal 0.0 - 0.5 E9/L [facility] Lymphocytes/100 WBC (Bld) 21.2 % Normal 14.0 - 50.0 % [facility] Lymphocytes/Leukocytes Auto (Bld) [Pure # fraction] 1.7 E9/L Normal 1.0 - 4.0 E9/L [facility] Monocytes/100 WBC (Bld) 6.7 % Normal 4.0 - 14.0 % [facility] Monocytes/Leukocytes Auto (Bld) [Pure # fraction] 0.5 E9/L Normal 0.2 - 1.0 E9/L [facility] Neutrophils/100 WBC (Bld) 68.7 % Normal 36.0 - 75.0 % [facility] Neutrophils/Leukocytes Auto (Bld) [Pure # fraction] 5.4 E9/L Normal 2.0 - 7.5 E9/L [facility] HEMATOLOGYOrdered By: Cuco Gardiner on 04-16-2022 Erythrocyte distribution width (RBC) [Ratio] 14.7 % High 10.9 - 14.2 % [facility] Hematocrit (Bld) [Volume fraction] 36.4 % Normal 34.0 - 46.0 % [facility] Hemoglobin (Bld) [Mass/Vol] 12.0 g/dL Normal 12.0 - 16.0 gm/dL [facility] MCH (RBC) [Entitic mass] 26.4 pg Low 27.0 - 34.0 pg [facility] MCHC (RBC) [Mass/Vol] 32.9 g/dL Normal 31.4 - 36.0 gm/dL [facility] MCV (RBC) [Entitic vol] 80.2 fL Normal 80.0 - 100.0 fL [facility] Platelet mean volume (Bld) [Entitic vol] 8.2 fL Normal 6.4 - 10.8 fL [facility] Platelets (Bld) [#/Vol] 360.0 E9/L Normal 150. 0 - 500.0 E9/L [facility]eAutoSS RBC (Bld) [#/Vol] 4.5 E12/L Normal 4.3 - 5.9 E12/L [facility]eAutoSS Sed Rate Automated 18 mm/h Normal 0 - 34 mm/hr [facility]SS WBC corrected for nucl RBC Auto (Bld) [#/Vol] 7.9 E9/L Normal 4.0 - 11.0 E9/L [facility] Sed Rate Automatedon 022 Sed Rate Automated 18 mm/hr Normal 0-34 [facility] Comment on above: Performed By: #### 2 [id number] ####[facility] [address] [place] [address] eGFRon 04-16-2022 GFR/1.73 sq M.predicted among blacks MDRD (S/P/Bld) [Vol rate/Area] mL/min/{1.73_m2} Normal >=59 [facility] Comment on above: Order Comment: Order added by Discern Expert. Result Comment: eGFR is race adjusted. AA=. Performed By: #### 2 [id number], [id number] ####[facility] [address] [place] [address] GFR/1.73 sq M.predicted among non-blacks MDRD (S/P/Bld) [Vol rate/Area] mL/min/{1.73_m2} Normal >=59 [facility] Comment on above: Order Comment: Order added by Discern Expert. 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 Kidney failure is indicated at less than 15 mL/min/1.73m2. Performed By: #### 2 [id number], [id number] ####[facility] [address] [place] [address] Auth for Release of Medical Recordson 04-13-2022 Auth for Release of Medical Records [id number]: 127 Normal [facility] Height or Weight NOT Doneon 03-08-2022 Adult depression screening assessment No [facility] y [address] DO Work Phone: Tobacco use status [facility] b) No [facility] y [address] DO Work Phone: Office Visit (Cardiology)on 03-08-2022 Follow-up visit Diagnoses/Problems Assessed Preop cardiovascular exam (V72.81) (Z01.810) Never a smoker Obesity (BMI 30-39.9) (278.00) (E66.9) Cerebral palsy (343.9) (G80.9) POTS (postural orthostatic tachycardia syndrome) (427.89) (I49.8) Orders Preop cardiovascular exam IO EKG Electrocardiogram- 12 Lead; Status:Complete; Done: 08Mar2022 Patient Instructions Please bring all medicines, vitamins, and herbal supplements with you when you come to the office. Prescriptions will not be filled unless you are compliant with your follow up appointments or have a follow up appointment scheduled as per instruction of your physician. Refills should be requested at the time of your visit. I, Laurie Epps LPN, am scribing for and in the presence of, Dr. Theron Quintero MD Patient is cleared for surgery. Follow up as needed. Chief Complaint POC KNEE SURGERY. VIJAYA TINSLEY is being seen for an initial evaluation of. History of Present Illness Patient is here for cardiovascular evaluation for preoperative risk assessment for knee surgery. The patient is 26-year-old obese white female with history of cerebral palsy limiting the use of her lower extremity presented recently with knee injury and was diagnosed with ACL injury and she is scheduled to undergo surgery in the near future. Patient reported history of POTS syndrome which diagnosed by Dr. Griffin in [place] many years ago. This does not require any specific treatment except increasing fluid intake. The patient reports she is minimally symptomatic. Patient reports she is very active. 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 She has no report of chest pain, palpitation, recent lightheadedness, dizziness or syncope. She is fairly active. Her cardiovascular exam and EKG appears to be normal. She does have limited use of her lower extremity. She can use with the aid of crutches. There is no family history of premature coronary artery disease or sudden cardiac . She reports no prior history of problems with anesthesia. Assessment 1. Preoperative risk assessment for knee surgery. Based on lack of symptoms normal cardiac examination and good exercise tolerance I believe the patient operative risk is acceptable cardiac chisholm and she can proceed 2. History of POTS syndrome controlled with increase of fluid intake 3. Moderate obesity. Patient was unable to stand to get her weight due to knee pain 4. Cerebral palsy with limited use of lower extremity Plan 1. Patient was advised she can proceed to surgery without further delay or testing. Her operative risk is acceptable based on ACC/AHA guidelines 2. Continue to encourage the patient to maintain high fluid intake and to use compression stocking 3. Counseled the patient regarding losing weight and exercise 4. Follow-up as an as-needed basis Surgical History Problems History of Ankle surgery Current Meds Medication NameInstruction Trospium Chloride ER 60 MG Oral Capsule Extended Release 24 Hour1 daily Patient did not bring medication list or bottles. Updated verbally with patient [facility]ies [facility] Recorded By: Karin Casiano; 03/08/2022 8:18:52 AM Social History Problems Daily caffeine consumption, 2-3 servings a day coffee Never a smoker No alcohol use No illicit drug use Review of Systems Constitutional: not feeling tired. Eyes: no eyesight problems. ENT: no hearing loss and no nosebleeds. Cardiovascular: no intermittent leg claudication and as noted in HPI. Respiratory: no chronic cough and no shortness of breath. Gastrointestinal: no change in bowel habits and no blood in stools. Genitourinary: no urinary frequency. Musculoskeletal:. Knee pain. Skin: no skin rashes. Neurological: no seizures and no frequent falls . Story of cerebral palsy with limited use of the lower extremity. Psychiatric: no depression and not suicidal. All other systems have been reviewed and are negative for complaint. Vitals Vital Signs Recorded: 08Mar2022 08:30AMRecorded: 08Mar2022 08:27AM [id number], LUE, [id number], RUE, Sitting [id number], LUE, Hrutnhep77, RUE, Sitting Heart Rate92, Apical Height5 ft 2 in Height or Weight NOT DoneMedical Reason Not Done Tobacco Useb) No PHQ-2 #1. Over the last 2 weeks have you felt down, depressed or hopeless? (If yes, answer PHQ-9 below)No PHQ-2 #2. Over the last 2 weeks have you felt little interest or pleasure in doing things? (If yes, answer PHQ-9 below)No EKG done in office today. Physical Exam Constitutional: alert and in no acute distress. Eyes: no erythema, swelling or discharge from the eye . Neck: neck is supple, symmetric, trachea midline, no masses and no thyromegaly . Pulmonary: no increased work of breathing or signs of respiratory distress and lungs clear to auscultation. Cardiovascular: carotid pulses 2+ bilaterally with no bruit , JVP was normal, no thrills , regular rhythm, normal S1 and S2, no murmurs , pedal pulses 2+ joey (more content not included)... Normal QUALIA (formerly known as LocalResponse) US Venous, Unilat, Lower Ext Righton 03-03-2022 US Venous, Unilat, Lower Ext Right CLINICAL HISTORY: Right lower extremity swelling. COMPARISON: 05/11/2021. TECHNIQUE: Grayscale, compression, color and waveform Doppler analysis of the right lower extremity venous systems was performed. FINDINGS: This study is mildly limited by the patient's medical condition. There is no venous thrombosis, abnormal masses, fluid collections, or other findings of concern identified elsewhere within the right lower extremity. IMPRESSION: NO RIGHT LOWER EXTREMITY DVT IDENTIFIED. Report reported and signed by Dillan Sam on 03/03/2022 1447 Normal [facility] [employer] VC CONSULT FOLLOWUPon 2021 VC CONSULT FOLLOWUP Patient: LION TINSLEY Exam Date: 02/10/2022 : 1995 Gender:F Ordering : DR LEEANNA CRONIN M.D. Admission #: [id number] Family : Order #: [id number] CLICK HERE TO VIEW EXAM RADIOLOGY REPORT PROCEDURE: VEIN CENTER CONSULTATION FOLLOWUP VEIN CENTER - OFFICE VISIT FOLLOW UP COMPARISON: None. PROGRESS NOTES: The patient reports chronic marked bilateral lower extremity swelling. Physical exam demonstrates marked edema of the lower extremities bilaterally. Review of the prior ultrasound showed no significant vein dilation or incompetency. Ultrasound findings, vein disease, and lymphedema explained to and discussed with patient. IMPRESSION: 1. No significant or treatable vein disease. Vein disease not felt to account for patient's lower extremity edema which is likely related to lymphedema. PLAN: Referral to lymphedema clinic. Nurse notes, history and physical were reviewed and confirmed, see attached forms. The nurse was present throughout the physical exam and consultation Dictated by: Dillan Craft M.D. on 02/10/2022 at 15:19 Approved by: Dillan Craft M.D. on 02/10/2022 at 15:23 Normal [facility] IMMUNOGLOBULIN E, TOTALon Immunoglobulin E, Total 224 IU/mL Normal 6-495 T [facility] Comment on above: Performed By: #### C RP, CMP #### [facility] [address] [address] [address] Elaine Kee KARLIE by IFAon 01-21-2022 Centriole Pattern Normal [facility] Comment on above: Performed By: #### C RP, CMP #### [facility] [address] [address] [address] Elaine Kee Centromere Pattern Normal [facility] Comment on above: Performed By: #### C RP, CMP #### [facility] [address] [address] [address] Elaine Kee Midbody Pattern Normal [facility] Comment on above: Performed By: #### C RP, CMP #### [facility] [address] [address] [address] Elaine Kee Note: Comment Normal [facility] Comment on above: Result Comment: For more information about Hep-2 cell patterns use ANApatterns.[employer]al[employer]ch, the official website for the International Consensus on Antinuclear Antibody (KARLIE) Patterns (ICAP). A positive KARLIE result may occur in healthy individuals (low titer) or be associated with a variety of diseases. See interpretation chart which is not all inclusive: . Pattern Antigen Detected Suggested Disease Association Homogeneous DNA(ds,ss), SLE - High titers Nucleosomes, Histones Drug-induced SLE Speckled Sm, CUT PRESSMAN, SCL-70, SLE,MCTD,PSS (diffuse form), SS-A/SS-B Sjogrens Nucleolar SCL-70, PM-1/SCL High titers Scleroderma, PM/DM Centromere Centromere PSS (limited form) w/Crest syndrome variable Nuclear Dot [id number] Primary Biliary Cirrhosis Nuclear GP210, Primary Biliary Cirrhosis Membrane trevor A,B,C Performed By: #### C RP, CMP #### [facility] [address] [place] [address] Dr. Elaine Kee Nuclear Dot Pattern Normal [facility] Comment on above: Performed By: #### C RP, CMP #### [facility] [address] [place] [address] Dr. Elaine Kee Nuclear Membrane Pattern Normal [facility] Comment on above: Performed By: #### C RP, CMP #### [facility] [address] [place] [address] Dr. Elaine Kee Nucleolar Pattern Normal [facility] Comment on above: Performed By: #### C RP, CMP #### [facility] [address] [place] [address] Dr. Elaine Kee PCNA Pattern Normal [facility] Comment on above: Performed By: #### C RP, CMP #### [facility] [address] [place] [address] Dr. Elaine Kee Speckled Pattern Normal [facility] Comment on above: Performed By: #### C RP, CMP #### [facility] [address] [place] [address] Dr. Elaine Kee Spindle Apparatus Pattern Normal [facility] Comment on above: Performed By: #### C RP, CMP #### [facility] [address] [place] [address] Dr. Elaine Kee Antinuclear Antibodies, IFA Positive Abnormal [facility] Comment on above: Result Comment: Nega tive <1:80 Borderline 1:80 Positive >1:80 Performed By: #### C RP, CMP #### [facility] [address] [place] [address] Dr. Elaine Kee Homogeneous Pattern 1:160 Critically high [facility] Comment on above: Result Comment: ICAP nomenclature: AC-1 Performed By: #### C RP, CMP #### [facility] [address] [place] [address] Dr. Elaine Kee RHEUMATOID FACTORon 01-22-20 RA Latex Turbid. <10.0 Normal <14.0 [facility] Comment on above: Performed By: #### C BC #### [facility] [address] [place] [address] Dr. Elaine Kee CBC AUTO DIFFon 01-20-2022 BASO # 0.0 103/ul Normal 0.0-0.1 [facility] Comment on above: Performed By: #### C RP, CMP #### [facility] [address] [place] [address] Dr. Elaine Kee Basophils/100 WBC (Bld) 0.6 % Normal 0.2-2.0 [facility] Comment on above: Performed By: #### C RP, CMP #### [facility] [address] [place] [address] Dr. Elaine Kee EO # 0.2 103/ul Normal 0.0-0.7 [facility] Comment on above: Performed By: #### C RP, CMP #### [facility] [address] [place] [address] Dr. Elaine Kee Eosinophils/100 WBC (Bld) 3.8 % Normal 0.9-7.0 [facility] Comment on above: Performed By: #### C RP, CMP #### [facility] [address] [place] [address] Dr. Elaine Kee Erythrocyte distribution width (RBC) [Ratio] 13.8 % Normal 11.0-15.0 [facility] Comment on above: Performed By: #### C RP, CMP #### [facility] [address] [place] [address] Dr. Elaine Kee Hematocrit (Bld) [Volume fraction] 35.3 % Critically low 36.0-48.0 [facility] Comment on above: Performed By: #### C RP, CMP #### [facility] [address] [place] [address] Dr. Elaine Kee Hemoglobin (Bld) [Mass/Vol] 11.5 g/dL Critically low 12.0-16.0 [facility] Comment on above: Performed By: #### C RP, CMP #### [facility] [address] [place] [address] Dr. Elaine Kee IG # 0.01 10e3/ul Normal 0.00-0.03 [facility] Comment on above: Performed By: #### C RP, CMP #### [facility] [address] [place] [address] Dr. Elaine Kee IG % 0.2 % Normal 0.0-0.5 [facility] Comment on above: Performed By: #### C RP, CMP #### [facility] [address] [place] [address] Dr. Elaine Kee LYMPH # 1.4 103/ul Normal 1.2-3.8 [facility] Comment on above: Performed By: #### C RP, CMP #### [facility] [address] [place] [address] Dr. Elaine Kee Lymphocytes/100 WBC (Bld) 25.6 % Normal 20.5-60.0 [facility] Comment on above: Performed By: #### C RP, CMP #### [facility] [address] [place] [address] Dr. Elaine Kee MANUAL DIFF REQ NO Normal [facility] Comment on above: Performed By: #### C RP, CMP #### [facility] [address] [place] [address] Dr. Elaine Kee MCH (RBC) [Entitic mass] 26.9 pg Normal 26.7-34.0 [facility] Comment on above: Performed By: #### C RP, CMP #### [facility] [address] [place] [address] Dr. Elaine Kee MCHC (RBC) [Mass/Vol] 32.6 g/dL Normal 29.9-35.2 [facility] Comment on above: Performed By: #### C RP, CMP #### [facility] [address] [place] [address] Dr. Elaine Kee MCV (RBC) [Entitic vol] 82.5 fL Normal 81.0-99.0 [facility] Comment on above: Performed By: #### C RP, CMP #### [facility] [address] [place] [address] Dr. Elaine Kee MONO # 0.4 103/ul Normal 0.3-0.8 [facility] Comment on above: Performed By: #### C RP, CMP #### [facility] [address] [place] [address] Dr. Elaine Kee Monocytes/100 WBC (Bld) 8.0 % Normal 1.7-12.0 [facility] Comment on above: Performed By: #### C RP, CMP #### [facility] [address] [place] [address] Dr. Elaine Kee NEUT # 3.3 103/ul Normal 1.4-6.5 [facility] Comment on above: Performed By: #### C RP, CMP #### [facility] [address] [place] [address] Dr. Elaine Kee Neutrophils/100 WBC (Bld) 61.8 % Normal 43.0-75.0 [facility] Comment on above: Performed By: #### C RP, CMP #### [facility] [address] [place] [address] Dr. Elaine Kee Platelet mean volume (Bld) [Entitic vol] 9.9 fL Normal 9.5-13.5 [facility] Comment on above: Performed By: #### C RP, CMP #### [facility] [address] [address] [address] Elaine Kee PLT 342 103/ul Normal 150-450 [facility] Comment on above: Performed By: #### C RP, CMP #### [facility] [address] [address] [address] Elaine Kee RBC 4.28 106/ul Normal 4.20-5.40 [facility] Comment on above: Performed By: #### C RP, CMP #### [facility] [address] [place] [address] Dr. Elaine Kee WBC 5.3 103/ul Normal 4.0-11.0 [facility] Comment on above: Performed By: #### C RP, CMP #### [facility] [address] [place] [address] Dr. Elaine Kee CRPon 01-20-2022 CRP [Mass/Vol] mg/L Normal <=1.0 [facility] Comment on above: Performed By: #### C BC #### [facility] [address] [place] [address] Dr. Elaine Kee LIPID PROFILEon 01-20-2022 CHOL-HDL RATIO NORM SEE BELOW Normal [facility] Comment on above: Result Comment: 3.3 - 4.4 LOW RISK 4.4 - 7.1 AVERAGE RISK 7.1 - 11.0 MODERATE RISK >11.0 HIGH RISK Performed By: #### C BC #### [facility] [address] [place] [address] Dr. Elaine Kee Cholesterol [Mass/Vol] 162 mg/dL Normal <=200 Th [facility] Comment on above: Performed By: #### C BC #### [facility] [address] [place] [address] Dr. Elaine Kee Cholesterol in HDL [Mass/Vol] 53 mg/dL Normal 40-60 [facility] Comment on above: Performed By: #### C BC #### [facility] [address] [place] [address] Dr. Elaine Kee Cholesterol in LDL [Mass/Vol] 100.4 mg/dL Normal [facility] Comment on above: Performed By: #### C BC #### [facility] [address] [address] [address] Elaine Kee Cholesterol.total/Vivi sterol in HDL [Mass ratio] 3.1 {ratio} Normal [facility] Comment on above: Performed By: #### C BC #### [facility] [address] [address] [address] Elaine Kee HDL NORMAL > or = 60 mg/dl - LO W CARDIOVASCULAR RISK <40 mg/dl - HIGH CARDIOVASCULAR RISK Normal [facility] Comment on above: Performed By: #### C BC #### [facility] [address] [address] [address] Elaine Kee LDL CALC NORMAL SEE BELOW Normal [facility] Comment on above: Result Comment: <100 mg/dl OPTIMAL 100 - 129 mg/dl NEAR OR ABOVE OPTIMAL 130 - 159 mg/dl BORDERLINE HIGH 160 - 189 mg/dl HIGH >190 mg/dl VERY HIGH Performed By: #### C BC #### [facility] [address] [place] [address] Dr. Elaine Kee Triglyceride [Mass/Vol] 43 mg/dL Normal <=150 T [facility] Comment on above: Performed By: #### C BC #### [facility] [address] [place] [address] Dr. Elaine Kee VLDL CALC 8.6 mg/dL Normal [facility] Comment on above: Performed By: #### C BC #### [facility] [address] [address] [address] Elaine Kee PROF 14(COMP METB)on 022 Albumin [Mass/Vol] 3.6 g/dL Normal 3.4-5.0 [facility] Comment on above: Performed By: #### C BC #### [facility] [address] [place] [address] Dr. Elaine Kee Albumin/Globulin [Mass ratio] 1.0 {ratio} Normal [facility] Comment on above: Performed By: #### C BC #### [facility] [address] [place] [address] Dr. Elaine Kee ALP [Catalytic activity/Vol] 93 U/L Normal 46-116 [facility] Comment on above: Performed By: #### C BC #### [facility] [address] [address] [address] Elaine Kee ALT [Catalytic activity/Vol] 143 U/L Critically high 14-59 [facility] Comment on above: Performed By: #### C BC #### [facility] [address] [address] [address] Elaine Kee Anion gap [Moles/Vol] 14.5 mmol/L Normal Th [facility] Comment on above: Performed By: #### C BC #### [facility] [address] [address] [address] Elaine Kee AST [Catalytic activity/Vol] 61 U/L Critically high 15-37 [facility] Comment on above: Performed By: #### C BC #### [facility] [address] [address] [address] Elaine Kee Bilirubin [Mass/Vol] 0.4 mg/dL Normal 0.2-1.0 [facility] Comment on above: Performed By: #### C BC #### [facility] [address] [place] [address] Dr. Elaine Kee Calcium [Mass/Vol] 8.8 mg/dL Normal 8.5-10.1 [facility] Comment on above: Performed By: #### C BC #### [facility] [address] [address] [address] Elaine Kee Chloride [Moles/Vol] 104 mmol/L Normal 98-107 [facility] Comment on above: Performed By: #### C BC #### [facility] [address] [address] [address] Elaine Kee CO2 [Moles/Vol] 25.5 mmol/L Normal 21.0-32.0 [facility] Comment on above: Performed By: #### C BC #### [facility] [address] [address] [address] Elaine Kee Creatinine [Mass/Vol] 0.52 mg/dL Critically low 0.55-1.02 [facility] Comment on above: Performed By: #### C BC #### [facility] [address] [place] [address] Dr. Elaine Kee EGFR-AF WELSH >60 Normal >=60 [facility] Comment on above: Performed By: #### C BC #### [facility] [address] [address] [address] Elaine Kee EGFR-NON AF WELSH >60 Normal >=60 [facility] Comment on above: Performed By: #### C BC #### [facility] [address] [address] [address] Elaine Kee Globulin (S) [Mass/Vol] 3.5 g/dL Normal T [facility] Comment on above: Performed By: #### C BC #### [facility] [address] [place] [address] Dr. Elaine Kee Glucose [Mass/Vol] 84 mg/dL Normal 74-106 [facility] Comment on above: Performed By: #### C BC #### [facility] [address] [place] [address] Dr. Elaine Kee Potassium [Moles/Vol] 4.0 mmol/L Normal 3.5-5.1 [facility] Comment on above: Performed By: #### C BC #### [facility] [address] [place] [address] Dr. Elaine Kee Protein [Mass/Vol] 7.1 g/dL Normal 6.4-8.2 [facility] Comment on above: Performed By: #### C BC #### [facility] [address] [place] [address] Dr. Elaine Kee Sodium [Moles/Vol] 140 mmol/L Normal 136-145 [facility] Comment on above: Performed By: #### C BC #### [facility] [address] [place] [address] Dr. Elaine Kee Urea nitrogen [Mass/Vol] 13.0 mg/dL Normal 7.0-18.0 [facility] Comment on above: Performed By: #### C BC #### [facility] [address] [address] [address] Elaine Kee Urea nitrogen/Creatinine [Mass ratio] 25.0 mg/mg Normal [facility] Comment on above: Performed By: #### C BC #### [facility] [address] [address] [address] Elaine Kee TSHon 01-20-2022 TSH 1.356 uIU/mL Normal 0.358-3.74 0 [facility] Comment on above: Performed By: #### C RP, CMP #### [facility] [address] [address] [address] Elaine Kee URIC ACID SERUMon 01-20-2022 Urate [Mass/Vol] 4.2 mg/dL Normal 2.6-6.0 [facility] Comment on above: Performed By: #### C RP, CMP #### [facility] [address] [address] [address] Elaine Kee HEMOGLOBINon 01-19-2022 Hemoglobin (Bld) [Mass/Vol] 11.7 g/dL Critically low 12.0-16.0 [facility] Comment on above: Performed By: #### H GB ####[facility] [id number] [id number] Elaine Kee XR CHEST 2 Von 01-19-2022 XR CHEST 2 V EXAM: XR CHEST 2 V HISTORY: Cough EXAM: XR CHEST 2 V INDICATION: 26 years old Female Cough COMPARISON: November 09, 2021 FINDINGS: The cardiac silhouette is normal. There is no pulmonary edema. The lungs are clear. There is no pneumonia. There is no pneumothorax. There is no abnormal foreign body. IMPRESSION: There is no acute abnormality. Electronically authenticated by: STEVE LAZARO Date: 2022-01-19 14:06 Normal [facility] Reportson 12-17-2021 Lab Reports [id number]: 127 Normal [facility] Reportson 12-10-2021 Lab Reports [id number]: 127 Normal [facility] KARLIE by IFAon 11-27-2021 Antinuclear Antibodies, IFA Positive Abnormal [facility] Comment on above: Result Comment: Nega tive <1:80 Borderline 1:80 Positive >1:80 Performed By: #### A NAIFA ####[facility] [id number] [address]Dr. Elaine Kee Centriole Pattern Normal [facility] Comment on above: Performed By: #### A NAIFA ####[facility] [id number] [address]Dr. Elaine Kee Centromere Pattern Normal [facility] Comment on above: Performed By: #### A NAIFA ####[facility] [id number] [address]Dr. Elaine Kee Homogeneous Pattern 1:160 Critically high [facility] Comment on above: Result Comment: ICAP nomenclature: AC-1 Performed By: #### A NAIFA ####[facility] [id number] [address]Dr. Elaine Kee Midbody Pattern Normal [facility] Comment on above: Performed By: #### A NAIFA ####[facility] [id number] [address]Dr. Joielke Kee Note: Comment Normal [facility] Comment on above: Result Comment: For more information about Hep-2 cell patterns use ANApatterns.org, the official website for the International Consensus on Antinuclear Antibody (KARLIE) Patterns (ICAP). A positive KARLIE result may occur in healthy individuals (low titer) or be associated with a variety of diseases. See interpretation chart which is not all inclusive: . Pattern Antigen Detected Suggested Disease Association Homogeneous DNA(ds,ss), SLE - High titers Nucleosomes, Histones Drug-induced SLE Speckled Sm, CUT PRESSMAN, SCL-70, SLE,MCTD,PSS (diffuse form), SS-A/SS-B Sjogrens Nucleolar SCL-70, PM-1/SCL High titers Scleroderma, PM/DM Centromere Centromere PSS (limited form) w/Crest syndrome variable Nuclear Dot Sp100,[id number] Primary Biliary Cirrhosis Nuclear GP210, Primary Biliary Cirrhosis Membrane trevor A,B,C Performed By: #### Alma Rosa EDWARDS ####[facility] [address] [place] [id number]. Elaine Kee Nuclear Dot Pattern Normal [facility] Comment on above: Performed By: #### A NAIFA ####[facility] [address] [place] [address]Dr. Elaine Kee Nuclear Membrane Pattern Normal The [facility] Comment on above: Performed By: #### A NAIFA ####[facility] [address] [place] [address]Dr. Elaine Kee Nucleolar Pattern Normal The [facility] Comment on above: Performed By: #### A NAIFA ####[facility] [address] [place] [address]Dr. Elaine Kee PCNA Pattern Normal The [facility] Comment on above: Performed By: #### A NAIFA ####[facility] [address] [place] [address]Dr. Elaine Kee Speckled Pattern 1:80 Normal The [facility] Comment on above: Result Comment: ICAP nomenclature: AC-2,4,5,29 Performed By: #### A NAIFA ####[facility] [address] [place], [place] [address]Dr. Elaine Kee Spindle Apparatus Pattern Normal The [facility] Comment on above: Performed By: #### A NAIFA ####[facility] [address] [place] [address]Dr. Elaine Kee PTH INTACTon 11-27-2021 PTH, Intact 23 pg/mL Normal 15-65 [facility] Comment on above: Performed By: #### C RP, CMP #### [facility] [address] [address] [address] Elaine Kee RHEUMATOID FACTORon 11-28-19 22 RA Latex Turbid. <10.0 Normal <14.0 The [facility] Comment on above: Performed By: #### R F ####[facility] [address] [place] [address]Dr. Elaine Kee CBC AUTO DIFFon 11-26-2021 BASO # 0.0 103/ul Normal 0.0-0.1 [facility] Comment on above: Performed By: #### C BC ####[facility] [address] [place] [id number]. Elaine Kee Basophils/100 WBC (Bld) 0.7 % Normal 0.2-2.0 [facility] Comment on above: Performed By: #### C BC ####[facility] [address] [place] [id number]. Elaine Kee EO # 0.2 103/ul Normal 0.0-0.7 The [facility] Comment on above: Performed By: #### C BC ####[facility] [address] [place], [place] [address]Dr. Elaine Kee Eosinophils/100 WBC (Bld) 3.4 % Normal 0.9-7.0 [facility] Comment on above: Performed By: #### C BC ####[facility] [address] [place], [place] [address]Dr. Elaine Kee Erythrocyte distribution width (RBC) [Ratio] 13.5 % Normal 11.0-15.0 [facility] Comment on above: Performed By: #### C BC ####[facility] [address] [place], [place] [address]Dr. Elaine Kee Hematocrit (Bld) [Volume fraction] 35.6 % Critically low 36.0-48.0 [facility] Comment on above: Performed By: #### C BC ####[facility] [address] [place] [id number]. Elaine Kee Hemoglobin (Bld) [Mass/Vol] 11.3 g/dL Critically low 12.0-16.0 [facility] Comment on above: Performed By: #### C BC ####[facility] [address] [place] [address]Dr. Elaine Kee IG # 0.02 10e3/ul Normal 0.00-0.03 [facility] Comment on above: Performed By: #### C BC ####[facility] [address] [place], [place] [address]Dr. Elaine Kee IG % 0.4 % Normal 0.0-0.5 The [facility] Comment on above: Performed By: #### C BC ####[facility] [address] [place] [id number]. Elaine Kee LYMPH # 1.1 103/ul Critically low 1.2-3.8 [facility] Comment on above: Performed By: #### C BC ####[facility] [address] [place] [id number]. Joielke Kee Lymphocytes/100 WBC (Bld) 24.2 % Normal 20.5-60.0 [facility] Comment on above: Performed By: #### C BC ####[facility] [address] [place] [id number]. Elaine Kee MANUAL DIFF REQ NO Normal [facility] Comment on above: Performed By: #### C BC ####[facility] [address] [place] [id number]. Elaine Chilango MCH (RBC) [Entitic mass] 27.0 pg Normal 26.7-34.0 [facility] Comment on above: Performed By: #### C BC ####[facility] [address] [place] [id number]. Elaine Kee MCHC (RBC) [Mass/Vol] 31.7 g/dL Normal 29.9-35.2 [facility] Comment on above: Performed By: #### C BC ####[facility] [address] [place] [id number]. Elaine Kee MCV (RBC) [Entitic vol] 85.0 fL Normal 81.0-99.0 [facility] Comment on above: Performed By: #### C BC ####[facility] [address] [place] [id number]. Elaine Kee MONO # 0.3 103/ul Normal 0.3-0.8 [facility] Comment on above: Performed By: #### C BC ####[facility] [address] [place] [id number]. Elaine Kee Monocytes/100 WBC (Bld) 6.3 % Normal 1.7-12.0 [facility] Comment on above: Performed By: #### C BC ####[facility] [address] [place], [place] [address]Nt. Joielke Kee NEUT # 2.9 103/ul Normal 1.4-6.5 The [facility] Comment on above: Performed By: #### C BC ####[facility] [address] [place], [place] [address]Gn. Elaine Kee Neutrophils/100 WBC (Bld) 65.0 % Normal 43.0-75.0 [facility] Comment on above: Performed By: #### C BC ####[facility] [address] [place] [id number]. Elaine Kee Platelet mean volume (Bld) [Entitic vol] 9.8 fL Normal 9.5-13.5 [facility] Comment on above: Performed By: #### C BC ####[facility] [address] [place] [id number]. Elaine Kee PLT 385 103/ul Normal 150-450 [facility] Comment on above: Performed By: #### C BC ####[facility] [address] [place], [place] [address]Us. Elaine Kee RBC 4.19 106/ul Critically low 4.20-5.40 [facility] Comment on above: Performed By: #### C BC ####[facility] [address] [place] [id number]. Elaine Kee WBC 4.5 103/ul Normal 4.0-11.0 [facility] Comment on above: Performed By: #### C BC ####[facility] [address] [place], [place] [address]SpLupe Kee CRPon 11-26-2021 CRP [Mass/Vol] mg/L Normal <=1.0 The [facility] Comment on above: Performed By: #### C BC #### [facility] [address] [place], [place] [address] Dr. Elaine Kee FERRITINon 11-26-2021 Ferritin [Mass/Vol] 30.0 ng/mL Normal 6.2-137.0 [facility] Comment on above: Performed By: #### C RP, CMP #### [facility] [address] [place] [address] Dr. Elaine Kee FREE T4on 11-26-2021 Free T4 [Mass/Vol] 1.07 ng/dL Normal 0.78-2.19 [facility] Comment on above: Performed By: #### C RP, CMP #### [facility] [address] [place] [address] Dr. Elaine Kee IRON AND TIBCon 11-26-2021 % SATURATION 28.8 % Normal [facility] Comment on above: Performed By: #### C RP, CMP #### [facility] [address] [place] [address] Dr. Elaine Kee Iron [Mass/Vol] 95.0 ug/dL Normal 37.0-170.0 [facility] Comment on above: Performed By: #### C RP, CMP #### [facility] [address] [place] [address] Dr. Elaine Kee TIBC DIRECT 330.0 ug/dL Normal 261.0-497. 0 [facility] Comment on above: Performed By: #### C RP, CMP #### [facility] [address] [place] [address] Dr. Elaine Kee LIPID PROFILEon 11-26-2021 CHOL-HDL RATIO NORM SEE BELOW Normal [facility] Comment on above: Result Comment: 3.3 - 4.4 LOW RISK 4.4 - 7.1 AVERAGE RISK 7.1 - 11.0 MODERATE RISK >11.0 HIGH RISK Performed By: #### C BC #### [facility] [address] [place] [address] Dr. Elaine Kee Cholesterol [Mass/Vol] 179 mg/dL Normal <=[address] [facility] Comment on above: Performed By: #### C BC #### [facility] [address] [place] [address] Dr. Elaine Kee Cholesterol in HDL [Mass/Vol] 54 mg/dL Normal 40-60 [facility] Comment on above: Performed By: #### C BC #### [facility] [address] [address] [address] Elaine Kee Cholesterol in LDL [Mass/Vol] 117.2 mg/dL Normal [facility] Comment on above: Performed By: #### C BC #### [facility] [address] [address] [address] Elaine Kee Cholesterol.total/Vivi sterol in HDL [Mass ratio] 3.3 {ratio} Normal [facility] Comment on above: Performed By: #### C BC #### [facility] [address] [address] [address] Elaine Kee HDL NORMAL > or = 60 mg/dl - LO W CARDIOVASCULAR RISK <40 mg/dl - HIGH CARDIOVASCULAR RISK Normal [facility] Comment on above: Performed By: #### C BC #### [facility] [address] [address] [address] Elaine Kee LDL CALC NORMAL SEE BELOW Normal [facility] Comment on above: Result Comment: <100 mg/dl OPTIMAL 100 - 129 mg/dl NEAR OR ABOVE OPTIMAL 130 - 159 mg/dl BORDERLINE HIGH 160 - 189 mg/dl HIGH >190 mg/dl VERY HIGH Performed By: #### C BC #### [facility] [address] [address] [address] Elaine Kee Triglyceride [Mass/Vol] 39 mg/dL Normal <=150 T [facility] Comment on above: Performed By: #### C BC #### [facility] [address] [address] [address] Elaine Kee VLDL CALC 7.8 mg/dL Normal [facility] Comment on above: Performed By: #### C BC #### [facility] [address] [address] [address] Elaine Kee PROF 14(COMP METB)on 022 Albumin [Mass/Vol] 3.6 g/dL Normal 3.4-5.0 [facility] Comment on above: Performed By: #### C BC #### [facility] [address] [address] [address] Elaine Kee Albumin/Globulin [Mass ratio] 1.0 {ratio} Normal [facility] Comment on above: Performed By: #### C BC #### [facility] [address] [address] [address] Elaine Kee ALP [Catalytic activity/Vol] 88 U/L Normal 46-116 [facility] Comment on above: Performed By: #### C BC #### [facility] [address] [place] [address] Dr. Elaine Kee ALT [Catalytic activity/Vol] 39 U/L Normal 14-59 [facility] Comment on above: Performed By: #### C BC #### [facility] [address] [address] [address] Elaine Kee Anion gap [Moles/Vol] 12.4 mmol/L Normal [facility] Comment on above: Performed By: #### C BC #### [facility] [address] [place] [address] Dr. Elaine Kee AST [Catalytic activity/Vol] 20 U/L Normal 15-37 [facility] Comment on above: Performed By: #### C BC #### [facility] [address] [place] [address] Dr. Elaine Kee Bilirubin [Mass/Vol] 0.5 mg/dL Normal 0.2-1.3 [facility] Comment on above: Performed By: #### C BC #### [facility] [address] [place] [address] Dr. Elaine Kee Calcium [Mass/Vol] 8.6 mg/dL Normal 8.5-10.1 [facility] Comment on above: Performed By: #### C BC #### [facility] [address] [place] [address] Dr. Elaine Kee Chloride [Moles/Vol] 103 mmol/L Normal 98-107 [facility] Comment on above: Performed By: #### C BC #### [facility] [address] [place] [address] Dr. Elaine Kee CO2 [Moles/Vol] 27.4 mmol/L Normal 22.0-30.0 [facility] Comment on above: Performed By: #### C BC #### [facility] [address] [place] [address] Dr. Elaine Kee Creatinine [Mass/Vol] 0.54 mg/dL Normal 0.52-1.04 [facility] Comment on above: Performed By: #### C BC #### [facility] [address] [address] [address] Elaine Kee EGFR-AF WELSH >60 Normal >=60 [facility] Comment on above: Performed By: #### C BC #### [facility] [address] [place] [address] Dr. Elaine Kee EGFR-NON AF WELSH >60 Normal >=60 [facility] Comment on above: Performed By: #### C BC #### [facility] [address] [place] [address] Dr. Elaine Kee Globulin (S) [Mass/Vol] 3.6 g/dL Normal T [facility] Comment on above: Performed By: #### C BC #### [facility] [address] [place] [address] Dr. Elaine Kee Glucose [Mass/Vol] 87 mg/dL Normal 74-106 [facility] Comment on above: Performed By: #### C BC #### [facility] [address] [place] [address] Dr. Elaine Kee Potassium [Moles/Vol] 3.8 mmol/L Normal 3.4-5.0 [facility] Comment on above: Performed By: #### C BC #### [facility] [address] [place] [address] Dr. Elaine Kee Protein [Mass/Vol] 7.2 g/dL Normal 6.1-8.2 [facility] Comment on above: Performed By: #### C BC #### [facility] [address] [place] [address] Dr. Elaine Kee Sodium [Moles/Vol] 139 mmol/L Normal 137-145 [facility] Comment on above: Performed By: #### C BC #### [facility] [address] [place] [address] Dr. Elaine Kee Urea nitrogen [Mass/Vol] 12.0 mg/dL Normal 7.0-18.0 [facility] Comment on above: Performed By: #### C BC #### [facility] [address] [place] [address] Dr. Elaine Kee Urea nitrogen/Creatinine [Mass ratio] 22.2 mg/mg Normal [facility] Comment on above: Performed By: #### C BC #### [facility] [address] [place] [address] Dr. Elaine Kee SED RATE WESTERGRENon 2021 SED RATE 18 mm/hr Normal <=20 [facility] Comment on above: Performed By: #### S EDR #### [facility] [address] [place] [address] Dr. Elaine Kee TSHon 11-26-2021 TSH 1.651 uIU/mL Normal 0.470-4.68 0 [facility] Comment on above: Performed By: #### C BC #### [facility] [address] [place] [address] Dr. Elaine Kee TSH RANGE SEE BELOW Normal [facility] Comment on above: Result Comment: <0.3 4 UIU/ml HYPERTHYROID 0.34-5.60 UIU/ml EUTHYROID >5.60 UIU/ml HYPOTHYROID Performed By: #### C BC #### [facility] [address] [place] [address] Dr. Elaine Kee URIC ACID SERUMon 11-26-2021 Urate [Mass/Vol] 4.1 mg/dL Normal 2.5-6.2 [facility] Comment on above: Performed By: #### C BC #### [facility] [address] [place] [address] Dr. Elaine Kee VITAMIN D 25 OHon 11-26-2021 VIT D 25-OH 9.5 ng/mL Normal [facility] Comment on above: Performed By: #### C RP, CMP #### [facility] [address] [place] [address] Dr. Elaine Kee VIT D RANGES SEE BELOW Normal [facility] Comment on above: Result Comment: <20 ng/mL Vit D deficient 20 - <30 ng/mL Vit D insufficient 30 - 100 ng/mL Vit D sufficient >100 ng/mL Potential Toxicity Performed By: #### C RP, CMP #### [facility] [address] [address] [address] Elaine Kee Patient Educationon 11-26-19 Patient Education Obstetrics and Gynecology Urinary Tract Infection, Adult A urinary tract infection (UTI) is an infection of any part of the urinary tract. The urinary tract includes the kidneys, ureters, bladder, and urethra. These organs make, store, and get rid of urine in the body. Your health care provider may use other names to describe the infection. An upper UTI affects the ureters and kidneys (pyelonephritis). A lower UTI affects the bladder (cystitis) and urethra (urethritis). What are the causes? Most urinary tract infections are caused by bacteria in your genital area, around the entrance to your urinary tract (urethra). These bacteria grow and cause inflammation of your urinary tract. What increases the risk? You are more likely to develop this condition if: ? You have a urinary catheter that stays in place (indwelling). ? You are not able to control when you urinate or have a bowel movement (you have incontinence). ? You are female and you: ? Use a spermicide or diaphragm for control. ? Have low estrogen levels. ? Are . ? You have certain genes that increase your risk (genetics). ? You are sexually active. ? You take antibiotic medicines. ? You have a condition that causes your flow of urine to slow down, such as: ? An enlarged prostate, if you are male. ? Blockage in your urethra (stricture). ? A kidney stone. ? A nerve condition that affects your bladder control (neurogenic bladder). ? Not getting enough to drink, or not urinating often. ? You have certain medical conditions, such as: ? Diabetes. ? A weak disease-fighting system (immunesystem). ? Sickle cell disease. ? Gout. ? Spinal cord injury. What are the signs or symptoms? Symptoms of this condition include: ? Needing to urinate right away (urgently). ? Frequent urination or passing small amounts of urine frequently. ? Pain or burning with urination. ? Blood in the urine. ? Urine that smells bad or unusual. ? Trouble urinating. ? Cloudy urine. ? Vaginal discharge, if you are female. ? Pain in the abdomen or the lower back. You may also have: ? Vomiting or a decreased appetite. ? Confusion. ? Irritability or tiredness. ? A fever. ? Diarrhea. The first symptom in older adults may be confusion. In some cases, they may not have any symptoms until the infection has worsened. How is this diagnosed? This condition is diagnosed based on your medical history and a physical exam. You may also have other tests, including: ? Urine tests. ? Blood tests. ? Tests for sexually transmitted infections (STIs). If you have had more than one UTI, a cystoscopy or imaging studies may be done to determine the cause of the infections. How is this treated? Treatment for this condition includes: ? Antibiotic medicine. ? Xabb-jwc-xzpbulc medicines to treat discomfort. ? Drinking enough water to stay hydrated. If you have frequent infections or have other conditions such as a kidney stone, you may need to see a health care provider who specializes in the urinary tract (urologist). In rare cases, urinary tract infections can cause sepsis. Sepsis is a life-threatening condition that occurs when the body responds to an infection. Sepsis is treated in the hospital with IV antibiotics, fluids, and other medicines. Follow these instructions at home: Medicines ? Take cnee-lyg-zdwygid and prescription medicines only as told by your health care provider. ? If you were prescribed an antibiotic medicine, take it as told by your health care provider. Do not stop using the antibiotic even if you start to feel better. General instructions ? Make sure you: ? Empty your bladder often and completely. Do not hold urine for long periods of time. ? Empty your bladder after sex. ? Wipe from front to back after a bowel movement if you are female. Use each tissue one time when you wipe. ? Drink enough fluid to keep your urine pale yellow. ? Keep all follow-up visits as told by your health care provider. This is important. Contact a health care provider if: ? Your symptoms do not get better after 1?2 days. ? Your symptoms go away and then return. Get help right away if you have: ? Severe pain in your back or your lower abdomen. ? A fever. ? Nausea or vomiting. Summary ? A urinary tract infection (UTI) is an infection of any part of the urinary tract, which includes the kidneys, ureters, bladder, and urethra. ? Most urinary tract infections are caused by bacteria in your genital area, around the entrance to your urinary tract (urethra). ? Treatment for this condition often includes antibiotic medicines. ? If you were prescribed an antibiotic medicine, take it as told by your health care provider. Do not stop using the antibiotic even if you start to feel better. ? Keep all follow-up visits as told by your health care provider. This is important. This in (more content not included)... Normal [facility] Urology Office/Clinic Noteon 11-25-2021 Urology Office/Clinic Note Chief Complaint pt is here from f/u to er on 11/12/21 HPI Staff [facility] er f/u from 11/12/21. Previous dx: OAB, feeling of incomplete bladder emptying, cerebral palsy, and UTI. pt was unable to give urine sample. Dysuria: _denies Incomplete bladder emptying: _denies, it's better Hematuria: _denies visibly Frequency: _denies Urgency: _denies Nocturia: _denies Stream: _steady Leaking: _denies Post void dripping: _a little Wearing pads/ Depends: _denies Urge incontinence: _denies Stress incontinence: _yes, when coughing,laughing,&sneez ing Incontinence without Sensory Awareness: _denies Abdominal pain: _denies Flank pain: _denies Sexual complaints: _ History of Present Illness I have reviewed and verified the staff HPI to be accurate for this encounter. Reviewed external records: [facility] CT AP, labs, cultures and ER notes. Review of Systems ROS - Provider Constitutional: denies weight loss, denies hot flashes. Eyes: denies eye problems. Gastrointestinal: denies nausea, denies vomiting. Cardiovascular: denies chest pain or angina. Integumentary: no dryness Musculoskeletal: wheelchair use, lower ext spasticity ENMT: denies otolaryngeal symptoms. Respiratory: no shortness of breath. Heme/Lymph: denies easy bleeding tendency, denies easy bruising tendency. Psychiatric: no confusion, no anxiety. Genitourinary: see HPI Physical Exam Vitals & Measurements HR: 95(Peripheral) BP: 146/93 HT: 157 cm HT: 157.0 cm WT: 94 kg WT: 94.0 kg BMI: 38.14 General Appearance: alert , no acute distress, well nourished, well developed female. In wheelchair Head: normocephalic . Eyes: normal orbit and globe. ENMT: normal examination of external ears. Chest: symmetric chest rise, respirations non labored . Cardiovascular: regular rate and rhythm. Abdomen: soft, non distended, no tenderness Genitourinary: bladder nonpalpable, no flank tenderness. Skin: warm, dry, no bruising. Psychiatric: cooperative, affect appropriate for age, normal judgement, euthymic mood. Assessment/Plan 1. UTI (urinary tract infection) (N30.00: Acute cystitis without hematuria) [facility] ER for febrile UTI. Urine culture on 11/05/21 showed klebsiella and proteus, R to ampicillin and nitrofurantoin. Blood culture x 1 klebsiella. Treated with keflex initially, pt returned due to positive cultures and was treated with IV ceftriaxone x 5 days. Repeat UCx neg. Denies inciting factors. Bowels improved but still with BM qod. Endorses compliance with trospium, feels it is helping much better than oxybutynin. Pt says she doesn't feel back to normal, but that she feels better. Advised pt to make sure she is having regular bowel movements to decrease the chance of infection. Pt is taking Colace everyday. Advised pt to add MiraLAX as well to help with the bowel movements. Timed voiding q2h If continues to get UTI, will strongly recommend botox 2. OAB (overactive bladder) (N32.81: Overactive bladder) Urodynamics done 06/29/2021 - unstable detrusor overactivity with leakage (PDet 116 cmH20 at volume 36mL), low capacity bladder 113mL, compliant, high pressure/low flow. PVR 50 mL Symptomatic control on trospium, denies side effects or leakage. Again recommend botox due to febrile UTI and small capacity, high pressure bladder. Patient will call if she wants to schedule botox - she wants this under anesthesia. The procedural risks, benefits, details, and treatment alternatives have been discussed with the patient. These include bleeding, infection, continued problems with overactive bladder, inability to empty the bladder which could require an indwelling catheter or need for in/out catheterization to empty the bladder, and need for repeat procedures over time (usually lasts up to six months), as well as fatigue and insomnia, among others. There is a minimal risk of Botox entering the blood stream and causing neurological problems, which is quite rare. 3. Feeling of incomplete bladder emptying (R39.14: Feeling of incomplete bladder emptying) Urodynamics done 06/29/2021 - unstable detrusor overactivity with leakage (PDet 116 cmH20 at volume 36mL), low capacity bladder 113mL, compliant, high pressure/low flow with voiding but improving -Controlled on medications 4. 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 Uses crutches to walk but currently in wheelchair due to low back fracture. [place], [place]. Bowel and bladder health crucial for pt. Discussed the importance of this, Patient has been taking Colace stool softeners every day. Will add MiraLAX too. Follow-up With When Contact Information Fatuma Wheeler MD, URL, URO Only if needed Additional Instructions: Follow up when in town next/3 months Patient Education Urinary Tract Infection, Adult I, Anselmo Amato personally scribed for Dr. Wheeler 11/25/2021 12:01:11. (more content not included)... Normal [facility] Comment on above: Result Comment: Elec tronically Signed By: Fatuma Wheeler MD\.br\Date and Time Signed: 11/25/21 13:17 EDT\.br\Electronically Co-Signed By: Anselmo Amato S\.br\Date and Time Co-Signed: 11/25/21 12:01 EDT CBC AUTO DIFFon 11-12-2021 BASO # 0.0 103/ul Normal 0.0-0.1 [facility] Comment on above: Performed By: #### C BC #### [facility] [address] [address] [address] Elaine Kee Basophils/100 WBC (Bld) 0.5 % Normal 0.2-2.0 [facility] Comment on above: Performed By: #### C BC #### [facility] [address] [place] [address] Dr. Elaine Kee EO # 0.3 103/ul Normal 0.0-0.7 [facility] Comment on above: Performed By: #### C BC #### [facility] [address] [place] [address] Dr. Elaine Kee Eosinophils/100 WBC (Bld) 5.2 % Normal 0.9-7.0 [facility] Comment on above: Performed By: #### C BC #### [facility] [address] [place] [address] Dr. Elaine Kee Erythrocyte distribution width (RBC) [Ratio] 13.2 % Normal 11.0-15.0 [facility] Comment on above: Performed By: #### C BC #### [facility] [address] [place] [address] Dr. Elaine Kee Hematocrit (Bld) [Volume fraction] 32.0 % Critically low 36.0-48.0 [facility] Comment on above: Performed By: #### C BC #### [facility] [address] [place] [address] Dr. Elaine Kee Hemoglobin (Bld) [Mass/Vol] 10.4 g/dL Critically low 12.0-16.0 [facility] Comment on above: Performed By: #### C BC #### [facility] [address] [place] [address] Dr. Elaine Kee IG # 0.01 10e3/ul Normal 0.00-0.03 [facility] Comment on above: Performed By: #### C BC #### [facility] [address] [place] [address] Dr. Elaine Kee IG % 0.2 % Normal 0.0-0.5 [facility] Comment on above: Performed By: #### C BC #### [facility] [address] [place] [address] Dr. Elaine Kee LYMPH # 2.1 103/ul Normal 1.2-3.8 [facility] Comment on above: Performed By: #### C BC #### [facility] [address] [place] [address] Dr. Elaine Kee Lymphocytes/100 WBC (Bld) 31.4 % Normal 20.5-60.0 [facility] Comment on above: Performed By: #### C BC #### [facility] [address] [place] [address] Dr. Elaine Kee MANUAL DIFF REQ NO Normal [facility] Comment on above: Performed By: #### C BC #### [facility] [address] [place] [address] Dr. Elaine Kee MCH (RBC) [Entitic mass] 26.8 pg Normal 26.7-34.0 [facility] Comment on above: Performed By: #### C BC #### [facility] [address] [place] [address] Dr. Elaine Kee MCHC (RBC) [Mass/Vol] 32.5 g/dL Normal 29.9-35.2 [facility] Comment on above: Performed By: #### C BC #### [facility] [address] [place] [address] Dr. Elaine Kee MCV (RBC) [Entitic vol] 82.5 fL Normal 81.0-99.0 [facility] Comment on above: Performed By: #### C BC #### [facility] [address] [place] [address] Dr. Elaine Kee MONO # 0.5 103/ul Normal 0.3-0.8 [facility] Comment on above: Performed By: #### C BC #### [facility] [address] [place] [address] Dr. Elaine Kee Monocytes/100 WBC (Bld) 7.2 % Normal 1.7-12.0 [facility] Comment on above: Performed By: #### C BC #### [facility] [address] [place] [address] Dr. Elaine Kee NEUT # 3.7 103/ul Normal 1.4-6.5 [facility] Comment on above: Performed By: #### C BC #### [facility] [address] [address] [address] Elaine Kee Neutrophils/100 WBC (Bld) 55.5 % Normal 43.0-75.0 [facility] Comment on above: Performed By: #### C BC #### [facility] [address] [place] [address] Dr. lEaine Kee Platelet mean volume (Bld) [Entitic vol] 9.4 fL Critically low 9.5-13.5 [facility] Comment on above: Performed By: #### C BC #### [facility] [address] [address] [address] Elaine Kee PLT 337 103/ul Normal 150-450 [facility] Comment on above: Performed By: #### C BC #### [facility] [address] [place] [address] Dr. Elaine Kee RBC 3.88 106/ul Critically low 4.20-5.40 [facility] Comment on above: Performed By: #### C BC #### [facility] [address] [place] [address] Dr. Elaine Kee WBC 6.6 103/ul Normal 4.0-11.0 [facility] Comment on above: Performed By: #### C BC #### [facility] [address] [place] [address] Dr. Elaine Kee CRPon 11-12-2021 CRP 2.3 mg/dL Critically high <=1.0 [facility] Comment on above: Performed By: #### C RP, CMP #### [facility] [address] [place] [address] Dr. Elaine Kee PROF 14(COMP METB)on 022 Albumin [Mass/Vol] 2.8 g/dL Critically low 3.4-5.[address] [facility] Comment on above: Performed By: #### C RP, CMP #### [facility] [address] [place] [address] Dr. Elaine Kee Albumin/Globulin [Mass ratio] 0.8 {ratio} Normal [facility] Comment on above: Performed By: #### C RP, CMP #### [facility] [address] [address] [address] Elaine Kee ALP [Catalytic activity/Vol] 63 U/L Normal 46-116 [facility] Comment on above: Performed By: #### C RP, CMP #### [facility] [address] [address] [address] Elaine Kee ALT [Catalytic activity/Vol] 23 U/L Normal 14-59 [facility] Comment on above: Performed By: #### C RP, CMP #### [facility] [address] [address] [address] Elaine Kee Anion gap [Moles/Vol] 13.2 mmol/L Normal [facility] Comment on above: Performed By: #### C RP, CMP #### [facility] [address] [place] [address] Dr. Elaine Kee AST [Catalytic activity/Vol] 15 U/L Normal 15-37 [facility] Comment on above: Performed By: #### C RP, CMP #### [facility] [address] [place] [address] Dr. Elaine Kee Bilirubin [Mass/Vol] 0.2 mg/dL Normal 0.2-1.3 [facility] Comment on above: Performed By: #### C RP, CMP #### [facility] [address] [place] [address] Dr. Elaine Kee Calcium [Mass/Vol] 8.1 mg/dL Critically low 8.5-10.[address] [facility] Comment on above: Performed By: #### C RP, CMP #### [facility] [address] [place] [address] Dr. Elaine Kee Chloride [Moles/Vol] 106 mmol/L Normal 98-107 [facility] Comment on above: Performed By: #### C RP, CMP #### [facility] [address] [place] [address] Dr. Elaine Kee CO2 [Moles/Vol] 24.5 mmol/L Normal 22.0-30.0 [facility] Comment on above: Performed By: #### C RP, CMP #### [facility] [address] [place] [address] Dr. Elaine Kee Creatinine [Mass/Vol] 0.49 mg/dL Critically low 0.52-1.04 [facility] Comment on above: Performed By: #### C RP, CMP #### [facility] [address] [address] [address] Elaine Kee EGFR-AF WELSH >60 Normal >=60 [facility] Comment on above: Performed By: #### C RP, CMP #### [facility] [address] [place] [address] Dr. Elaine Kee EGFR-NON AF WELSH >60 Normal >=60 [facility] Comment on above: Performed By: #### C RP, CMP #### [facility] [address] [place] [address] Dr. Elaine Kee Globulin (S) [Mass/Vol] 3.7 g/dL Normal [facility] Comment on above: Performed By: #### C RP, CMP #### [facility] [address] [place] [address] Dr. Elaine Kee Glucose [Mass/Vol] 97 mg/dL Normal 74-[address] [facility] Comment on above: Performed By: #### C RP, CMP #### [facility] [address] [place] [address] Dr. Elaine Kee Potassium [Moles/Vol] 3.7 mmol/L Normal 3.4-5.0 [facility] Comment on above: Performed By: #### C RP, CMP #### [facility] [address] [place] [address] Dr. Elaine Kee Protein [Mass/Vol] 6.5 g/dL Normal 6.1-8.[address] [facility] Comment on above: Performed By: #### C RP, CMP #### [facility] [address] [place] [address] Dr. Elaine Kee Sodium [Moles/Vol] 140 mmol/L Normal 137-[address] [facility] Comment on above: Performed By: #### C RP, CMP #### [facility] [address] [address] [address] Elaine Kee Urea nitrogen [Mass/Vol] 10.0 mg/dL Normal 7.0-18.0 [facility] Comment on above: Performed By: #### C RP, CMP #### [facility] [address] [address] [address] Elaine Kee Urea nitrogen/Creatinine [Mass ratio] 20.4 mg/mg Normal [facility] Comment on above: Performed By: #### C RP, CMP #### [facility] [address] [address] [address] Elaine Kee CBC AUTO DIFFon 11-11-2021 BASO # 0.0 103/ul Normal 0.0-0.1 [facility] Comment on above: Performed By: #### C BC ####[facility] [address] [address]DrLupe Kee Basophils/100 WBC (Bld) 0.5 % Normal 0.2-2.0 [facility] Comment on above: Performed By: #### C BC ####[facility] [address] [address]Dr. Elaine Kee EO # 0.3 103/ul Normal 0.0-0.7 [facility] Comment on above: Performed By: #### C BC ####[facility] [address] [id number] Elaine Kee Eosinophils/100 WBC (Bld) 6.2 % Normal 0.9-7.0 [facility] Comment on above: Performed By: #### C BC ####[facility] [address] [address]DrLupe Kee Erythrocyte distribution width (RBC) [Ratio] 13.2 % Normal 11.0-15.0 [facility] Comment on above: Performed By: #### C BC ####[facility] [address] [address]DrLupe Kee Hematocrit (Bld) [Volume fraction] 30.6 % Critically low 36.0-48.0 [facility] Comment on above: Performed By: #### C BC ####[facility] [address] [id number][address] Elaine Kee Hemoglobin (Bld) [Mass/Vol] 10.1 g/dL Critically low 12.0-16.0 [facility] Comment on above: Performed By: #### C BC ####[facility] [address] [id number][address] Elaine Kee IG # 0.01 10e3/ul Normal 0.00-0.03 [facility] Comment on above: Performed By: #### C BC ####[facility] [address] [address]Dr. Elaine Kee IG % 0.2 % Normal 0.0-0.5 [facility] Comment on above: Performed By: #### C BC ####[facility] [address] [place], [place] [address]Dr. Elaine Kee LYMPH # 1.9 103/ul Normal 1.2-3.8 [facility] Comment on above: Performed By: #### C BC ####[facility] [address] [address]Dr. Elaine Kee Lymphocytes/100 WBC (Bld) 33.8 % Normal 20.5-60.0 [facility] Comment on above: Performed By: #### C BC ####[facility] [address] [address]Dr. Elaine Kee MANUAL DIFF REQ NO Normal [facility] Comment on above: Performed By: #### C BC ####[facility] [address] [place], [place] [address]Dr. Elaine Kee MCH (RBC) [Entitic mass] 27.4 pg Normal 26.7-34.0 [facility] Comment on above: Performed By: #### C BC ####[facility] [address] [id number] Elaine Kee MCHC (RBC) [Mass/Vol] 33.0 g/dL Normal 29.9-35.2 [facility] Comment on above: Performed By: #### C BC ####[facility] [address] [id number]. Elaine Kee MCV (RBC) [Entitic vol] 82.9 fL Normal 81.0-99.0 [facility] Comment on above: Performed By: #### C BC ####[facility] [address] [id number]. Elaine Kee MONO # 0.5 103/ul Normal 0.3-0.8 [facility] Comment on above: Performed By: #### C BC ####[facility] [address] [id number]. Elaine Kee Monocytes/100 WBC (Bld) 8.9 % Normal 1.7-12.0 [facility] Comment on above: Performed By: #### C BC ####[facility] [address] [place], [place] [address]Dr. Elaine Kee NEUT # 2.8 103/ul Normal 1.4-6.5 [facility] Comment on above: Performed By: #### C BC ####[facility] [address] [address]Dr. Elaine Kee Neutrophils/100 WBC (Bld) 50.4 % Normal 43.0-75.0 [facility] Comment on above: Performed By: #### C BC ####[facility] [address] [place], [place] [address]Dr. Elaine Kee Platelet mean volume (Bld) [Entitic vol] 9.5 fL Normal 9.5-13.5 [facility] Comment on above: Performed By: #### C BC ####[facility] [address] [id number]. Elaine Kee PLT 301 103/ul Normal 150-450 [facility] Comment on above: Performed By: #### C BC ####[facility] [address] [id number]. Elaine Chilango RBC 3.69 106/ul Critically low 4.20-5.40 [facility] Comment on above: Performed By: #### C BC ####[facility] [address] [place], [place] [address]CzDr. Elaine Kee WBC 5.5 103/ul Normal 4.0-11.0 [facility] Comment on above: Performed By: #### C BC ####[facility] [address] [place], [place] [address]Dr. Elaine Kee CRPon 11-11-2021 CRP 3.9 mg/dL Critically high <=1.0 [facility] Comment on above: Performed By: #### C BC #### [facility] [address] [address] [address] Elaine Kee PROF 14(COMP METB)on 022 Albumin [Mass/Vol] 2.7 g/dL Critically low 3.4-5.[address] [facility] Comment on above: Performed By: #### C BC #### [facility] [address] [place] [address] Dr. Elaine Kee Albumin/Globulin [Mass ratio] 0.8 {ratio} Normal [facility] Comment on above: Performed By: #### C BC #### [facility] [address] [address] [address] Elaine Kee ALP [Catalytic activity/Vol] 61 U/L Normal 46-116 [facility] Comment on above: Performed By: #### C BC #### [facility] [address] [place] [address] Dr. Elaine Kee ALT [Catalytic activity/Vol] 27 U/L Normal 14-59 [facility] Comment on above: Performed By: #### C BC #### [facility] [address] [place] [address] Dr. Elaine Kee Anion gap [Moles/Vol] 13.6 mmol/L Normal [facility] Comment on above: Performed By: #### C BC #### [facility] [address] [address] [address] Elaine Kee AST [Catalytic activity/Vol] 17 U/L Normal 15-37 [facility] Comment on above: Performed By: #### C BC #### [facility] [address] [address] [address] Elaine Kee Bilirubin [Mass/Vol] 0.2 mg/dL Normal 0.2-1.3 [facility] Comment on above: Performed By: #### C BC #### [facility] [address] [address] [address] Elaine Kee Calcium [Mass/Vol] 8.1 mg/dL Critically low 8.5-10.1 [facility] Comment on above: Performed By: #### C BC #### [facility] [address] [place] [address] Dr. Elaine Kee Chloride [Moles/Vol] 106 mmol/L Normal 98-107 [facility] Comment on above: Performed By: #### C BC #### [facility] [address] [place] [address] Dr. Elaine Kee CO2 [Moles/Vol] 24.9 mmol/L Normal 22.0-30.0 [facility] Comment on above: Performed By: #### C BC #### [facility] [address] [place] [address] Dr. Elaine Kee Creatinine [Mass/Vol] 0.48 mg/dL Critically low 0.52-1.04 [facility] Comment on above: Performed By: #### C BC #### [facility] [address] [place] [address] Dr. Elaine Kee EGFR-AF WELSH >60 Normal >=60 [facility] Comment on above: Performed By: #### C BC #### [facility] [address] [place] [address] Dr. Elaine Kee EGFR-NON AF WELSH >60 Normal >=60 [facility] Comment on above: Performed By: #### C BC #### [facility] [address] [place] [address] Dr. Elaine Kee Globulin (S) [Mass/Vol] 3.5 g/dL Normal T [facility] Comment on above: Performed By: #### C BC #### [facility] [address] [place] [address] Dr. Elaine Kee Glucose [Mass/Vol] 99 mg/dL Normal 74-106 [facility] Comment on above: Performed By: #### C BC #### [facility] [address] [address] [address] Elaine Kee Potassium [Moles/Vol] 3.5 mmol/L Normal 3.4-5.0 [facility] Comment on above: Performed By: #### C BC #### [facility] [address] [place] [address] Dr. Elaine Kee Protein [Mass/Vol] 6.2 g/dL Normal 6.1-8.2 [facility] Comment on above: Performed By: #### C BC #### [facility] [address] [place] [address] Dr. Elaine Kee Sodium [Moles/Vol] 141 mmol/L Normal 137-145 [facility] Comment on above: Performed By: #### C BC #### [facility] [address] [place] [address] Dr. Elaine Kee Urea nitrogen [Mass/Vol] 9.0 mg/dL Normal 7.0-18.0 [facility] Comment on above: Performed By: #### C BC #### [facility] [address] [place] [address] Dr. Elaine Kee Urea nitrogen/Creatinine [Mass ratio] 18.8 mg/mg Normal [facility] Comment on above: Performed By: #### C BC #### [facility] [address] [place] [address] Dr. Elaine Kee CBC AUTO DIFFon 11-10-2021 BASO # 0.0 103/ul Normal 0.0-0.1 [facility] Comment on above: Performed By: #### C RP, CMP #### [facility] [address] [place] [address] Dr. Elaine Kee Basophils/100 WBC (Bld) 0.5 % Normal 0.2-2.0 [facility] Comment on above: Performed By: #### C RP, CMP #### [facility] [address] [place] [address] Dr. Elaine Kee EO # 0.4 103/ul Normal 0.0-0.7 [facility] Comment on above: Performed By: #### C RP, CMP #### [facility] [address] [place] [address] Dr. Elaine Kee Eosinophils/100 WBC (Bld) 6.4 % Normal 0.9-7.0 [facility] Comment on above: Performed By: #### C RP, CMP #### [facility] [address] [place] [address] Dr. Elaine Kee Erythrocyte distribution width (RBC) [Ratio] 13.2 % Normal 11.0-15.0 [facility] Comment on above: Performed By: #### C RP, CMP #### [facility] [address] [place] [address] Dr. Elaine Kee Hematocrit (Bld) [Volume fraction] 29.6 % Critically low 36.0-48.0 [facility] Comment on above: Performed By: #### C RP, CMP #### [facility] [address] [place] [address] Dr. Elaine Kee Hemoglobin (Bld) [Mass/Vol] 9.8 g/dL Critically low 12.0-16.0 [facility] Comment on above: Performed By: #### C RP, CMP #### [facility] [address] [place] [address] Dr. Elaine Kee IG # 0.01 10e3/ul Normal 0.00-0.03 [facility] Comment on above: Performed By: #### C RP, CMP #### [facility] [address] [place] [address] Dr. Elaine Kee IG % 0.2 % Normal 0.0-0.5 [facility] Comment on above: Performed By: #### C RP, CMP #### [facility] [address] [place] [address] Dr. Elaine Kee LYMPH # 2.0 103/ul Normal 1.2-3.8 [facility] Comment on above: Performed By: #### C RP, CMP #### [facility] [address] [place] [address] Dr. Elaine Kee Lymphocytes/100 WBC (Bld) 35.9 % Normal 20.5-60.0 [facility] Comment on above: Performed By: #### C RP, CMP #### [facility] [address] [place] [address] Dr. Elaine Kee MANUAL DIFF REQ NO Normal [facility] Comment on above: Performed By: #### C RP, CMP #### [facility] [address] [place] [address] Dr. Elaine Kee MCH (RBC) [Entitic mass] 27.1 pg Normal 26.7-34.0 [facility] Comment on above: Performed By: #### C RP, CMP #### [facility] [address] [place] [address] Dr. Elaine Kee MCHC (RBC) [Mass/Vol] 33.1 g/dL Normal 29.9-35.2 [facility] Comment on above: Performed By: #### C RP, CMP #### [facility] [address] [place] [address] Dr. Elaine Kee MCV (RBC) [Entitic vol] 82.0 fL Normal 81.0-99.0 [facility] Comment on above: Performed By: #### C RP, CMP #### [facility] [address] [place] [address] Dr. Elaine Kee MONO # 0.5 103/ul Normal 0.3-0.8 [facility] Comment on above: Performed By: #### C RP, CMP #### [facility] [address] [place] [address] Dr. Elaine Kee Monocytes/100 WBC (Bld) 9.8 % Normal 1.7-12.0 [facility] Comment on above: Performed By: #### C RP, CMP #### [facility] [address] [place] [address] Dr. Elaine Kee NEUT # 2.6 103/ul Normal 1.4-6.5 [facility] Comment on above: Performed By: #### C RP, CMP #### [facility] [address] [address] [address] Elaine Kee Neutrophils/100 WBC (Bld) 47.2 % Normal 43.0-75.0 [facility] Comment on above: Performed By: #### C RP, CMP #### [facility] [address] [address] [address] Elaine Kee Platelet mean volume (Bld) [Entitic vol] 9.5 fL Normal 9.5-13.5 [facility] Comment on above: Performed By: #### C RP, CMP #### [facility] [address] [address] [address] Elaine Kee PLT 287 103/ul Normal 150-450 [facility] Comment on above: Performed By: #### C RP, CMP #### [facility] [address] [address] [address] Elaine Kee RBC 3.61 106/ul Critically low 4.20-5.40 [facility] Comment on above: Performed By: #### C RP, CMP #### [facility] [address] [address] [address] Elaine Kee WBC 5.5 103/ul Normal 4.0-11.0 [facility] Comment on above: Performed By: #### C RP, CMP #### [facility] [address] [address] [address] Elaine Kee CRPon 11-10-2021 CRP 4.5 mg/dL Critically high <=1.0 [facility] Comment on above: Performed By: #### C RP, CMP #### [facility] [address] [address] [address] Elaine Kee Covid-19 PCR (CVDTB)on SARS-CoV-2 (COVID-19) RNA FALGUNI+probe Ql (Unsp spec) Not detected Normal NOT DETECTED [facility] Comment on above: Result Comment: This test is not yet approved or cleared by the [place] FDA. When there are no FDA-approved or cleared tests available, and other criteria are met, FDA can make tests available under an emergency access mechanism called an Emergency Use Authorization (EUA). The EUA for this test is supported by the Junior Automation Engineer of Health and Human Service's (HHS's) declaration that circumstances exist to justify the emergency use of in vitro diagnostics for the detection and/or diagnosis of the virus that causes COVID-19. This EUA will remain in effect (meaning this test can be used) for the duration of the COVID-19 declaration justifying emergency of IVDs, unless it is terminated or revoked by FDA (after which the test may no longer be used). When diagnostic testing is negative, the possibility of a false negative should be considered in the context of a patient's recent exposures and the presence of clinical signs and symptoms consistent with SARS-CoV-2. Performed By: #### C BC #### [facility] [address] [place] [address] Dr. Elaine Kee ED Note-Physicianon 11-11-19 ED Note-Physician [id number]: 127 Normal [facility] PROF 14(COMP METB)on 022 Albumin [Mass/Vol] 2.7 g/dL Critically low 3.4-5.0 [facility] Comment on above: Performed By: #### C RP, CMP #### [facility] [address] [place] [address] Dr. Elaine Kee Albumin/Globulin [Mass ratio] 0.8 {ratio} Normal [facility] Comment on above: Performed By: #### C RP, CMP #### [facility] [address] [place] [address] Dr. Elaine Kee ALP [Catalytic activity/Vol] 57 U/L Normal 46-116 [facility] Comment on above: Performed By: #### C RP, CMP #### [facility] [address] [place] [address] Dr. Elaine Kee ALT [Catalytic activity/Vol] 26 U/L Normal 14-59 [facility] Comment on above: Performed By: #### C RP, CMP #### [facility] [address] [place] [address] Dr. Elaine Kee Anion gap [Moles/Vol] 13.4 mmol/L Normal [facility] Comment on above: Performed By: #### C RP, CMP #### [facility] [address] [place] [address] Dr. Elaine Kee AST [Catalytic activity/Vol] 13 U/L Critically low 15-37 [facility] Comment on above: Performed By: #### C RP, CMP #### [facility] [address] [place] [address] Dr. Elaine Kee Bilirubin [Mass/Vol] 0.1 mg/dL Critically low 0.2-1.3 [facility] Comment on above: Performed By: #### C RP, CMP #### [facility] [address] [place] [address] Dr. Elaine Kee Calcium [Mass/Vol] 8.0 mg/dL Critically low 8.5-10.[address] [facility] Comment on above: Performed By: #### C RP, CMP #### [facility] [address] [place] [address] Dr. Elaine Kee Chloride [Moles/Vol] 106 mmol/L Normal 98-107 [facility] Comment on above: Performed By: #### C RP, CMP #### [facility] [address] [place] [address] Dr. Elaine Kee CO2 [Moles/Vol] 24.0 mmol/L Normal 22.0-30.0 [facility] Comment on above: Performed By: #### C RP, CMP #### [facility] [address] [place] [address] Dr. Elaine Kee Creatinine [Mass/Vol] 0.41 mg/dL Critically low 0.52-1.04 [facility] Comment on above: Performed By: #### C RP, CMP #### [facility] [address] [place] [address] Dr. Elaine Kee EGFR-AF WELSH >60 Normal >=60 [facility] Comment on above: Performed By: #### C RP, CMP #### [facility] [address] [place] [address] Dr. Elaine Kee EGFR-NON AF WELSH >60 Normal >=60 [facility] Comment on above: Performed By: #### C RP, CMP #### [facility] [address] [place] [address] Dr. Elaine Kee Globulin (S) [Mass/Vol] 3.5 g/dL Normal T [facility] Comment on above: Performed By: #### C RP, CMP #### [facility] [address] [place] [address] Dr. Elaine Kee Glucose [Mass/Vol] 92 mg/dL Normal 74-106 [facility] Comment on above: Performed By: #### C RP, CMP #### [facility] [address] [place] [address] Dr. Elaine Kee Potassium [Moles/Vol] 3.4 mmol/L Normal 3.4-5.0 [facility] Comment on above: Performed By: #### C RP, CMP #### [facility] [address] [place] [address] Dr. Elaine Kee Protein [Mass/Vol] 6.2 g/dL Normal 6.1-8.2 [facility] Comment on above: Performed By: #### C RP, CMP #### [facility] [address] [place] [address] Dr. Elaine eKe Sodium [Moles/Vol] 140 mmol/L Normal 137-145 [facility] Comment on above: Performed By: #### C RP, CMP #### [facility] [address] [place] [address] Dr. Elaine Kee Urea nitrogen [Mass/Vol] 12.0 mg/dL Normal 7.0-18.0 [facility] Comment on above: Performed By: #### C RP, CMP #### [facility] [address] [place] [address] Dr. Elaine Kee Urea nitrogen/Creatinine [Mass ratio] 29.3 mg/mg Normal [facility] Comment on above: Performed By: #### C RP, CMP #### [facility] [address] [place] [address] Dr. Elaine Kee RAD - CT Reporton 04-05-2022 RAD - CT Report [id number]: 127 Normal [facility] US KIDNEYS BLADDERon 022 US KIDNEYS BLADDER EXAMINATION: US KIDN EYS BLADDER HISTORY: Bladder outlet obstruction COMPARISON: No relevant comparison available. TECHNIQUE: Ultrasound examination was performed of the bladder. FINDINGS: Right Kidney: Normal in size, contour and echotexture. No solid mass or hydronephrosis. The cortex measures 1.7 cm thick. Height: 6.3 cm Length: 10.1 cm Width: 5.4 cm Left Kidney: Normal in size, contour and echotexture. No solid mass or hydronephrosis. The cortex measures 1.7 cm thick Height: 5.3 cm Length: 11.1 cm Width: 5.6 cm Urinary bladder is normal in appearance. The wall measures 1.4 mm thick. Prevoid volume 213 mL. Post void volume 49 mL. Ureteral jets: Visualized bilaterally IMPRESSION: Post void urinary bladder residual 49 mL Electronically authenticated by: LEEANNA CRONIN Date: 2021-11-10 11:34 Normal [facility] BLOOD CULTURE ID/SENSon [id number] Aerobe ID + Suscept Final report Abnormal [facility] Comment on above: Performed By: #### C RP, CMP #### [facility] [address] [place] [address] Dr. Elaine Kee Antimicrobial Susceptibility Comment Normal [facility] Comment on above: Result Comment: S = Susceptible; I = Intermediate; R = Resistant P = Positive; N = Negative MICS are expressed in micrograms per mL Antibiotic RSLT#1 RSLT#2 RSLT#3 RSLT#4 Amoxicillin/Clavulanic Acid S Ampicillin R Cefepime S Ceftriaxone S Cefuroxime S Ciprofloxacin S Ertapenem S Gentamicin S Imipenem S Levofloxacin S Meropenem S Nitrofurantoin I Piperacillin/Tazobactam S Tetracycline S Tobramycin S Trimethoprim/Sulfa S Performed By: #### C RP, CMP #### [facility] [address] [place] [address] Dr. Elaine Kee Result 1 Klebsiella pneumoniae Abnormal [facility] Comment on above: Result Comment: Rece ived anaerobic bottle only. Performed By: #### C RP, CMP #### [facility] [address] [address] [address] Elaine Kee CBC AUTO DIFFon 11-09-2021 BASO # 0.1 103/ul Normal 0.0-0.1 [facility] Comment on above: Performed By: #### C BC #### [facility] [address] [place] [address] Dr. Elaine Kee Basophils/100 WBC (Bld) 1.0 % Normal 0.2-2.0 [facility] Comment on above: Performed By: #### C BC #### [facility] [address] [place] [address] Dr. Elaine Kee EO # 0.3 103/ul Normal 0.0-0.7 [facility] Comment on above: Performed By: #### C BC #### [facility] [address] [place] [address] Dr. Elaine Kee Eosinophils/100 WBC (Bld) 5.8 % Normal 0.9-7.0 [facility] Comment on above: Performed By: #### C BC #### [facility] [address] [place] [address] Dr. Elaine Kee Erythrocyte distribution width (RBC) [Ratio] 13.3 % Normal 11.0-15.0 [facility] Comment on above: Performed By: #### C BC #### [facility] [address] [place] [address] Dr. Elaine Kee Hematocrit (Bld) [Volume fraction] 35.6 % Critically low 36.0-48.0 [facility] Comment on above: Performed By: #### C BC #### [facility] [address] [place] [address] Dr. Elaine Kee Hemoglobin (Bld) [Mass/Vol] 11.6 g/dL Critically low 12.0-16.0 [facility] Comment on above: Performed By: #### C BC #### [facility] [address] [place] [address] Dr. Elaine Kee IG # 0.01 10e3/ul Normal 0.00-0.03 [facility] Comment on above: Performed By: #### C BC #### [facility] [address] [place] [address] Dr. Elaine Kee IG % 0.2 % Normal 0.0-0.5 [facility] Comment on above: Performed By: #### C BC #### [facility] [address] [place] [address] Dr. Elaine Kee LYMPH # 1.3 103/ul Normal 1.2-3.8 [facility] Comment on above: Performed By: #### C BC #### [facility] [address] [place] [address] Dr. Elaine Kee Lymphocytes/100 WBC (Bld) 25.6 % Normal 20.5-60.0 [facility] Comment on above: Performed By: #### C BC #### [facility] [address] [place] [address] Dr. Elaine Kee MANUAL DIFF REQ NO Normal [facility] Comment on above: Performed By: #### C BC #### [facility] [address] [place] [address] Dr. Elaine Kee MCH (RBC) [Entitic mass] 27.3 pg Normal 26.7-34.0 [facility] Comment on above: Performed By: #### C BC #### [facility] [address] [place] [address] Dr. Elaine Kee MCHC (RBC) [Mass/Vol] 32.6 g/dL Normal 29.9-35.2 [facility] Comment on above: Performed By: #### C BC #### [facility] [address] [place] [address] Dr. Elaine Kee MCV (RBC) [Entitic vol] 83.8 fL Normal 81.0-99.0 [facility] Comment on above: Performed By: #### C BC #### [facility] [address] [place] [address] Dr. Elaine Kee MONO # 0.6 103/ul Normal 0.3-0.8 [facility] Comment on above: Performed By: #### C BC #### [facility] [address] [place] [address] Dr. Elaine Kee Monocytes/100 WBC (Bld) 11.0 % Normal 1.7-12.0 [facility] Comment on above: Performed By: #### C BC #### [facility] [address] [place] [address] Dr. Elaine Kee NEUT # 2.9 103/ul Normal 1.4-6.5 [facility] Comment on above: Performed By: #### C BC #### [facility] [address] [place] [address] Dr. Elaine Kee Neutrophils/100 WBC (Bld) 56.4 % Normal 43.0-75.0 [facility] Comment on above: Performed By: #### C BC #### [facility] [address] [place] [address] Dr. Elaine Kee Platelet mean volume (Bld) [Entitic vol] 9.6 fL Normal 9.5-13.5 [facility] Comment on above: Performed By: #### C BC #### [facility] [address] [place] [address] Dr. Elaine Kee PLT 286 103/ul Normal 150-450 [facility] Comment on above: Performed By: #### C BC #### [facility] [address] [place] [address] Dr. Elaine Kee RBC 4.25 106/ul Normal 4.20-5.40 [facility] Comment on above: Performed By: #### C BC #### [facility] [address] [place] [address] Dr. Elaine Kee WBC 5.2 103/ul Normal 4.0-11.0 [facility] Comment on above: Performed By: #### C BC #### [facility] [address] [place] [address] Dr. Elaine Kee CULTURE BLOODon 11-09-2021 Microscopic examination of blood, culture Culture Observations: No growth at 5 days. Isolate 1 BC_BA_NA Normal [facility] Comment on above: Performed By: #### B [id number] #### [facility] [address] [address] [address] Elaine Kee Microscopic examination of blood, culture Culture Observations: No growth at 5 days. Isolate 1 BC_BA_NA Normal [facility] Comment on above: Performed By: #### B [id number] ####[facility] [id number] [address]Dr[address] Elaine Kee CULTURE URINEon 11-09-2021 CULTURE URINE Culture Observations : NO GROWTH. Normal [facility] Comment on above: Performed By: #### U RCX ####[facility] [id number] [address]Dr[address] Elaine Kee ER URINE PROFILEon Bilirubin Ql (U) Negative Normal NEGATIVE [facility] Comment on above: Performed By: #### C BC #### [facility] [address] [place] [address] Dr. Elaine Kee Clarity (U) CLEAR Normal CLEAR [facility] Comment on above: Performed By: #### C BC #### [facility] [address] [place] [address] Dr. Elaine Kee Color (U) YELLOW Normal YELLOW [facility] Comment on above: Performed By: #### C BC #### [facility] [address] [place] [address] Dr. Elaine Kee ERUAHD A micrscopic examina tion will be performed if indicated. Normal [facility] Comment on above: Performed By: #### C BC #### [facility] [address] [place] [address] Dr. Elaine Kee Glucose Ql (U) Negative Normal NEGATIVE [facility] Comment on above: Performed By: #### C BC #### [facility] [address] [place] [address] Dr. Elaine Kee Hemoglobin Ql (U) SMALL Abnormal NEGATIVE [facility] Comment on above: Performed By: #### C BC #### [facility] [address] [place] [address] Dr. Elaine Kee Ketones Ql (U) 15 mg/dl Abnormal NEGATIVE [facility] Comment on above: Performed By: #### C BC #### [facility] [address] [place] [address] Dr. Elaine Kee LEUKOCYTES Negative Normal NEGATIVE [facility] Comment on above: Performed By: #### C BC #### [facility] [address] [place] [address] Dr. Elaine Kee Nitrite Ql (U) Negative Normal NEGATIVE [facility] Comment on above: Performed By: #### C BC #### [facility] [address] [place] [address] Dr. Elaine Kee pH (U) 5.5 [pH] Normal 5-9 [facility] Comment on above: Performed By: #### C BC #### [facility] [address] [place] [address] Dr. Elaine Kee SPEC GRAVITY 1.025 Normal 1.005-<=1. 025 [facility] Comment on above: Performed By: #### C BC #### [facility] [address] [place] [address] Dr. Elaine Kee UA PROTEIN Negative Normal NEGATIVE/ TRACE [facility] Comment on above: Performed By: #### C BC #### [facility] [address] [place] [address] Dr. Elaine Kee UR MICRO IND INDICATED Normal [facility] Comment on above: Performed By: #### C BC #### [facility] [address] [place] [address] Dr. Elaine Kee Urobilinogen Qn (U) 0.2 {Ion'U}/dL Normal 0.2 - 1. 0 [facility] Comment on above: Performed By: #### C BC #### [facility] Laboratory [address] [place] [address] Dr. Elaine Kee INFLUENZA A AND B AGon 11-09 INFLUANEGH SEE BELOW Normal [facility] Comment on above: Result Comment: Nega tive for Flu A protein angiten. Infection due to Flu A cannot be ruled out. Flu A angiten in the sample may be below the detection limit of the test. Performed By: #### C BC #### [facility] Laboratory [address] [place] [address] Dr. Elaine Kee [facility] SEE BELOW Normal [facility] Comment on above: Result Comment: Nega tive for Flu B protein antigen. Infection due to Flu B cannot be ruled out. Flu B antigen in the sample may be below the detection limit of the test. Performed By: #### C BC #### [facility] Laboratory [address] [place] [address] Dr. Elaine Kee INFLUENZA A AG Negative Normal NEGATIVE SEE COMMENT [facility] Comment on above: Performed By: #### C BC #### [facility] Laboratory [address] [place] [address] Dr. Elaine Kee INFLUENZA B AG Negative Normal NEGATIVE SEE COMMENT [facility] Comment on above: Performed By: #### C BC #### [facility] Laboratory [address] [place] [address] Dr. Elaine Kee INTERNAL CONTROLS Within Normal Limits Normal Wi thin Normal Limits [facility] Comment on above: Performed By: #### C BC #### [facility] Laboratory [address] [place] [address] Dr. Elaine Kee LACTATE/LACTIC ACIDon 2021 Lactate [Moles/Vol] 0.9 mmol/L Normal 0.7-2.0 [facility] Comment on above: Performed By: #### C RP, CMP #### [facility] Laboratory [address] [place] [address] Dr. Elaine Kee URon 11-09-2021 , QUAL Negative Normal NEGATIVE [facility] Comment on above: Performed By: #### C BC #### [facility] Laboratory [address] [place] [address] Dr. Elaine Kee PROF CHEM 8 (BAS METB)on Anion gap [Moles/Vol] 13.4 mmol/L Normal [facility] Comment on above: Performed By: #### C BC #### [facility] Laboratory [address] [place] [address] Dr. Elaine Kee Calcium [Mass/Vol] 8.5 mg/dL Normal 8.5-10.1 [facility] Comment on above: Performed By: #### C BC #### [facility] Laboratory [address] [place] [address] Dr. Elaine Kee Chloride [Moles/Vol] 105 mmol/L Normal 98-107 [facility] Comment on above: Performed By: #### C BC #### [facility] Laboratory [address] [address] [address] Elaine Kee CO2 [Moles/Vol] 24.7 mmol/L Normal 22.0-30.0 [facility] Comment on above: Performed By: #### C BC #### [facility] Laboratory [address] [place] [address] Dr. Elaine Kee Creatinine [Mass/Vol] 0.54 mg/dL Normal 0.52-1.04 [facility] Comment on above: Performed By: #### C BC #### [facility] Laboratory [address] [place] [address] Dr. Elaine Kee EGFR-AF WELSH >60 Normal >=60 [facility] Comment on above: Performed By: #### C BC #### [facility] Laboratory [address] [place] [address] Dr. Elaine Kee EGFR-NON AF WELSH >60 Normal >=60 [facility] Comment on above: Performed By: #### C BC #### [facility] Laboratory [address] [place] [address] Dr. Elaine Kee Glucose [Mass/Vol] 87 mg/dL Normal 74-[address] [facility] Comment on above: Performed By: #### C BC #### [facility] Laboratory [address] [place] [address] Dr. Elaine Kee Potassium [Moles/Vol] 4.1 mmol/L Normal 3.4-5.0 [facility] Comment on above: Performed By: #### C BC #### [facility] Laboratory [address] [place] [address] Dr. Elaine Kee Sodium [Moles/Vol] 139 mmol/L Normal 137-[address] [facility] Comment on above: Performed By: #### C BC #### [facility] Laboratory [address] [place] [address] Dr. Elaine Kee Urea nitrogen [Mass/Vol] 10.0 mg/dL Normal 7.0-18.0 [facility] Comment on above: Performed By: #### C BC #### [facility] Laboratory [address] [place] [address] Dr. Elaine Kee Urea nitrogen/Creatinine [Mass ratio] 18.5 mg/mg Normal [facility] Comment on above: Performed By: #### C BC #### [facility] Laboratory [address] [place] [address] Dr. Elaine Kee URINE MICROSCOPIC ONLYon BACTERIA TRACE Abnormal NONE SEEN [facility] Comment on above: Performed By: #### C BC #### [facility] Laboratory [address] [place] [address] Dr. Elaine Kee Bacteria identified Cx Nom (U) NOT INDICATED Normal [facility] Comment on above: Performed By: #### C BC #### [facility] Laboratory [address] [place] [address] Dr. Elaine Kee CAST NONE SEEN Normal NONE SEEN [facility] Comment on above: Performed By: #### C BC #### [facility] Laboratory [address] [place] [address] Dr. Elaine Kee Crystals LM Nom (Urine sed) SEEN Abnormal NONE SEEN [facility] Comment on above: Performed By: #### C BC #### [facility] Laboratory [address] [place] [address] Dr. Elaine Kee Epithelial cells LM Ql (Urine sed) RARE Normal NONE SEEN /RARE [facility] Comment on above: Performed By: #### C BC #### [facility] Laboratory [address] [place] [address] Dr. Elaine Kee MUCOUS NONE SEEN Normal NONE SEEN [facility] Comment on above: Performed By: #### C BC #### [facility] Laboratory [address] [place] [address] Dr. Elaine Kee RBC 0-2 Normal 0-2 [facility] Comment on above: Performed By: #### C BC #### [facility] Laboratory [address] [address] [address] Elaine Kee URIC ACID CRYSTALS RARE Normal [facility] Comment on above: Performed By: #### C BC #### [facility] Laboratory [id number] Elaine Kee WBC NONE SEEN Normal NONE SEEN [facility] Comment on above: Performed By: #### C BC #### [facility] Laboratory [address] [address] [address] Elaine Kee XR CHEST 1 Von 11-09-2021 XR CHEST 1 V EXAMINATION: XR CHES T 1 V HISTORY: Cough for 3 days COMPARISON: None. TECHNIQUE: Portable chest FINDINGS: The lung parenchyma is free of consolidation or infiltrate. No pneumothorax or pleural effusion. The cardiac, mediastinal and hilar contours are normal. The visualized osseous structures exhibit no gross abnormality. IMPRESSION: Normal chest x-ray Electronically authenticated by: LEEANNA AVENDAÑO Date: 2021-11-09 16:01 Normal [facility] CULTURE URINEon 11-07-2021 CULTURE URINE Isolate 1 Klebsiella pneumoniae ssp pneumoniae >100,000 cfu/mL of Isolate 2 Proteus mirabilis 50,000 CFU/ML OF ORGANISM 2 Proteus mirabilis ANTIBIOTIC M.I.C RX STATUS Ampicillin <=2 S F Ampicillin/Sulbactam <=2 S F Piperacillin/Tazobactam <=4 S F Cefazolin <=4 S F Ceftazidime <=1 S F Ceftriaxone <=1 S F Ertapenem <=0.5 S F Imipenem 2 S F Amikacin <=2 S F Gentamicin <=1 S F Tobramycin <=1 S F Ciprofloxacin <=0.25 S F Levofloxacin <=0.12 S F Nitrofurantoin 128 R F Trimethoprim/Sulfamethox azole <=20 S F ORGANISM 1 Klebsiella pneumoniae ssp pneumoniae ANTIBIOTIC M.I.C RX STATUS Ampicillin >=32 R F Ampicillin/Sulbactam >=32 R F Piperacillin/Tazobactam <=4 S F Cefazolin <=4 S F Ceftazidime <=1 S F Ceftriaxone <=1 S F Ertapenem <=0.5 S F Imipenem <=0.25 S F Amikacin <=2 S F Gentamicin <=1 S F Tobramycin <=1 S F Ciprofloxacin <=0.25 S F Levofloxacin <=0.12 S F Nitrofurantoin 64 I F Trimethoprim/Sulfamethox azole <=20 S F Normal [facility] Comment on above: Performed By: #### U RCX #### [facility] Laboratory [address] ABD/PELVIS WO CONon 11-06 CT ABD/PELVIS WO CON EXAMINATION: CT ABD/PELVIS WO CON, 11/05/2021 10:39 AM EDT HISTORY: UNSPECIFIED ABDOMINAL PAIN COMPARISON: None. TECHNIQUE: CT scan of the abdomen and pelvis was performed without IV contrast. CT dose reduction technique was used, including Automated Exposure Control. FINDINGS: The visualized portion of the lung base is clear. The visualized portion of the heart appears unremarkable. Minimal left basilar atelectasis. Given the limitation of the visceral organs is limited due to lack of IV contrast. The visualized portion of the liver, gallbladder, spleen, pancreas, bilateral adrenal glands appear normal in contour. The stomach is underdistended. The duodenum appears unremarkable. The kidneys are symmetric in size without any hydronephrosis. There is no nephrolithiasis. No bulky retroperitoneal lymph nodes. The bladder is incompletely distended. The uterus is present. No adnexal lesion is evident. Trace fluid in the pelvis is likely physiologic in nature. The small and large bowel are normal in caliber. No bowel obstruction. There is an extensive amount of stool burden. The appendix is normal in caliber. There is no intraperitoneal free air or free fluid. The abdominal aorta is normal in caliber. Small fat-containing midline ventral umbilical hernia. No bulky retroperitoneal, pelvic sidewall, inguinal nodes. Bone windows demonstrate no suspicious osseous lesion. There is chronic pars defect at L5 without any significant listhesis. There is moderate bilateral neural foraminal narrowing at L5-S1. IMPRESSION: No evidence of bowel obstruction. Extensive amount of stool burden. The appendix is normal in caliber. No hydronephrosis/nephrolit hiasis. Trace fluid in the pelvis is likely physiologic in nature. Chronic pars defect at L5 without any significant listhesis. Electronically authenticated by: WICHO BANKS Date: 2021-11-06 18:22 Normal [facility] BLOOD CULTURE ID PANELon A. baumannii Not detected Normal [facility] Comment on above: Performed By: #### B ROSELINE ####[facility] [address] [id number]. Elaine Kee BCID CONTROLS PASSED Normal [facility] Comment on above: Performed By: #### B ROSELINE ####[facility] [address] [place], [place] [address]Xn. Yielke Kee BCIDBTHD BLOOD CULTURE BOTTLE INFORMATION [facility] Comment on above: Performed By: #### B ROSELINE ####[facility] [address] [id number]. Yielke Kee BCIDHD1 ANTIMICROBIAL RESIST ANCE GENES [facility] Comment on above: Performed By: #### B ROSELINE ####[facility] [address] [id number]. Elaine Kee BCIDHD2 SEE BELOW [facility] Comment on above: Result Comment: KPC- carbapenem resistance gene, mecA- methecillin resistance gene, van A/B- vancomycin resistance gene Note: Antimicrobial resitance can occur via multiple mechanisms. A Not Detected result for the [employer] antomicrobial resistance gene assays does not indicate antimicrobial susceptibility. Subculturing is required for specis identificationand susceptibility testing of isolates. Performed By: #### B ROSELINE ####[facility] [address] [id number]. Elaine Kee BCIDHD3 Positive [facility] Comment on above: Performed By: #### B ROSELINE ####[facility] [address] [id number]. Yielke Kee BCIDHD4 Negative [facility] Comment on above: Performed By: #### B ROSELINE ####[facility] [address] [id number]. Elaine Kee BCIDHD5 YEAST [facility] Comment on above: Performed By: #### B ROSELINE ####[facility] [address] [id number]. Elaine Kee BCIDHD6 SEE BELOW [facility] Comment on above: Result Comment: Note : All genus and species BCID FilmArray results will be verified post subculturing via Maldi-Tof MS testing methodology. Performed By: #### B ROSELINE ####[facility] [address] [place], [place] [address]Dr. Elaine Kee Bottle Set: Set 1 Normal [facility] Comment on above: Performed By: #### B ROSELINE ####[facility] [address] [place], [place] [address]Dr. Elaine Kee Bottle: Anaerobic Normal [facility] Comment on above: Performed By: #### B ROSELINE ####[facility] [address] [place], [place] [address]Dr. Elaine Kee Anika albicans Not detected Normal [facility] Comment on above: Performed By: #### B ROSELINE ####[facility] [address] [place], [place] [address]Dr. Elaine [facility] Anika glabrata Not detected Normal [facility] Comment on above: Performed By: #### B ROSELINE ####[facility] [address] [place], [place] [address]Dr. Elaine [facility] Anika Krusei Not detected Normal [facility] Comment on above: Performed By: #### B ROSELINE ####[facility] [address] [place], [place] [address]Dr. Yielke Kee Anika Parapsilosis Not detected Normal [facility] Comment on above: Performed By: #### B ROSELINE ####[facility] [address] [place], [place] [address]Dr. Yielke Kee Anika Tropicalis Not detected Normal [facility] Comment on above: Performed By: #### B ROSELINE ####[facility] [address] [place], [place] [address]Dr. Yielke Kee E. Cloacae complex Not detected Normal [facility] Comment on above: Performed By: #### B ROSELINE ####[facility] [address] [place], [place] [address]Dr. Yilan Kee Enterobacteriaceae Detected Critically abnormal [facility] Comment on above: Performed By: #### B ROSELINE ####[facility] [address] [id number]. Joielke Kee Enterococcus Not detected Normal [facility] Comment on above: Performed By: #### B ROSELINE ####[facility] [address] [id number]. Joielke Kee Escheria coli Not detected Normal [facility] Comment on above: Performed By: #### B ROSELINE ####[facility] [address] [address]Dr. Elaine Kee K. oxytoca Not detected Normal [facility] Comment on above: Performed By: #### B ROESLINE ####[facility] [address] [place], [place] [address]Dr. Elaine Kee K. pneumoniae Detected Critically abnormal [facility] Comment on above: Performed By: #### B ROSELINE ####[facility] [address] [place], [place] [address]Dr. Elaine Kee KPC Resistant Gene Not detected Normal [facility] Comment on above: Performed By: #### B ROSELINE ####[facility] F[address] [place], [place] [address]Dr. Elaine Kee List. monocytogenes Not detected Normal [facility] Comment on above: Performed By: #### B ROSELINE ####[facility] [address] [place], [place] [address]Dr. Elaine Kee mecA Resistant Gene Not Applicable Normal [facility] Comment on above: Performed By: #### B ROSELINE ####[facility] [address] [address]Dr. Elaine Kee Proteus Not detected Normal [facility] Comment on above: Performed By: #### B ROSELINE ####[facility] [address] [address]Dr. Elaine Kee Pseud. aeruginosa Not detected Normal [facility] Comment on above: Performed By: #### B ROSELINE ####[facility] [address] [address]Dr. Elaine Kee Seratia marcescens Not detected Normal [facility] Comment on above: Performed By: #### B ROSELINE ####[facility] [address] [address]Dr. Elaine Kee Site: left AC Normal [facility] Comment on above: Performed By: #### B ROSELINE ####[facility] [address] [address]Dr. Elaine Kee Staph. aureus Not detected Normal [facility] Comment on above: Performed By: #### B ROSELINE ####[facility] [address] [address]Dr. Elaine Kee Staphylococcus Not detected Normal [facility] Comment on above: Performed By: #### B ROSELINE ####[facility] [address] [place], [place] [address]Dr. Elaine Kee Strep. agalactiae Not detected Normal [facility] Comment on above: Performed By: #### B ROSELINE ####[facility] [address] [place], [place] [address]Dr. Elaine Kee Strep. pneumoniae Not detected Normal [facility] Comment on above: Performed By: #### B ROSELINE ####[facility] [address] [place], [place] [address]Dr. Elaine Kee Strep. pyogenes Not detected Normal [facility] Comment on above: Performed By: #### B ROSELINE ####[facility] [address] [place], [place] [address]Dr. Elaine Kee Streptococcus Not detected Normal [facility] Comment on above: Performed By: #### B ROSELINE ####[facility] [address] [place], [place] [address]Dr. Elaine Kee Edgardo/B Resist. Gene Not Applicable Normal [facility] Comment on above: Performed By: #### B ROSELINE ####[facility] [address] [address]DrLupe Kee CBC W MANUAL DIFFon 11-06-19 22 ATYPICAL LYMPH # Normal [facility] Comment on above: Performed By: #### C BC #### [facility] Laboratory [address] [address] [address] Elaine Kee ATYPICAL LYMPH % Normal [facility] Comment on above: Performed By: #### C BC #### [facility] Laboratory [address] [place] [address] Dr. Elaine Kee BAND # 0.0 103/ul Normal 0.0-0.3 [facility] Comment on above: Performed By: #### C BC #### [facility] Laboratory [address] [place] [address] Dr. Elaine Kee BAND % 0 % Normal 0-5 [facility] Comment on above: Performed By: #### C BC #### [facility] Laboratory [address] [place] [address] Dr. Elaine Kee BASOM # 0.00 103/ul Normal 0.00-0.10 [facility] Comment on above: Performed By: #### C BC #### [facility] Laboratory [address] [place] [address] Dr. Elaine Kee BASOM % 0.0 % Critically low 0.2-2.0 [facility] Comment on above: Performed By: #### C BC #### [facility] Laboratory [address] [place] [address] Dr. Elaine Kee BLAST # Normal [facility] Comment on above: Performed By: #### C BC #### [facility] Laboratory [address] [place] [address] Dr. Elaine Kee BLAST % Normal [facility] Comment on above: Performed By: #### C BC #### [facility] Laboratory [address] [place] [address] Dr. Elaine Kee CORRECTED WBC Normal 4.0-11.0 [facility] Comment on above: Performed By: #### C BC #### [facility] Laboratory [address] [place] [address] Dr. Elaine Kee EOS # 0.00 103/ul Normal 0.00-0.70 [facility] Comment on above: Performed By: #### C BC #### [facility] Laboratory [address] [place] [address] Dr. Elaine Kee EOS% 0.0 % Critically low 0.9-7.0 [facility] Comment on above: Performed By: #### C BC #### [facility] Laboratory [address] [address] [address] Elaine Kee HCT 37.0 % Normal 36.0-48.0 [facility] Comment on above: Performed By: #### C BC #### [facility] Laboratory [address] [place] [address] Dr. Elaine Kee HGB 12.4 g/dl Normal 12.0-16.0 [facility] Comment on above: Performed By: #### C BC #### [facility] Laboratory [address] [place] [address] Dr. Elaine Kee LYMPHM # 0.34 103/ul Critically low 1.20-3.80 [facility] Comment on above: Performed By: #### C BC #### [facility] Laboratory [address] [place] [address] Dr. Elaine Kee LYMPHM% 3.0 % Critically low 20.5-60.0 [facility] Comment on above: Performed By: #### C BC #### [facility] Laboratory [address] [place] [address] Dr. Elaine Kee MCH 27.4 pg Normal 26.7-34.0 [facility] Comment on above: Performed By: #### C BC #### [facility] Laboratory [address] [place] [address] Dr. Elaine Kee MCHC 33.5 g/dl Normal 29.9-35.2 [facility] Comment on above: Performed By: #### C BC #### [facility] Laboratory [address] [place] [address] Dr. Elaine Kee MCV 81.9 fL Normal 81.0-99.0 [facility] Comment on above: Performed By: #### C BC #### [facility] Laboratory [address] [place] [address] Dr. Elaine Kee METAMYELOCYTE # Normal [facility] Comment on above: Performed By: #### C BC #### [facility] Laboratory [address] [place] [address] Dr. Elaine Kee METAMYELOCYTE % Normal [facility] Comment on above: Performed By: #### C BC #### [facility] Laboratory [address] [place] [address] Dr. Elaine Kee MONOM# 0.56 103/ul Normal 0.30-0.80 [facility] Comment on above: Performed By: #### C BC #### [facility] [address] [address] [address] Elaine Kee MONOM% 5.0 % Normal 1.7-12.0 [facility] Comment on above: Performed By: #### C BC #### [facility] [address] [address] [address] Elaine Kee MPV 9.2 fL Critically low 9.5-13.5 [facility] Comment on above: Performed By: #### C BC #### [facility] [address] [place] [address] Dr. Elaine Kee MYELOCYTE # Normal [facility] Comment on above: Performed By: #### C BC #### [facility] [address] [place] [address] Dr. Elaine Kee MYELOCYTE % Normal [facility] Comment on above: Performed By: #### C BC #### [facility] [address] [place] [address] Dr. Elaine Kee NRBC Normal [facility] Comment on above: Performed By: #### C BC #### [facility] [address] [place] [address] Dr. Elaine Kee PLT 275 103/ul Normal 150-450 [facility] Comment on above: Performed By: #### C BC #### [facility] [address] [place] [address] Dr. Elaine Kee RBC 4.52 106/ul Normal 4.20-5.40 [facility] Comment on above: Performed By: #### C BC #### [facility] [address] [place] [address] Dr. Elaine Kee RDW 13.0 % Normal 11.0-15.0 [facility] Comment on above: Performed By: #### C BC #### [facility] [id number] Elaine Kee SEG # 10.30 103/ul Critically high 1.40-6.50 [facility] Comment on above: Performed By: #### C BC #### [facility] [id number] Elaine Kee SEG % 92.0 % Critically high 43.0-75.0 [facility] Comment on above: Performed By: #### C BC #### [facility] [address] [place] [address] Dr. Elaine Kee WBC 11.2 103/ul Critically high 4.0-11.0 [facility] Comment on above: Performed By: #### C BC #### [facility] [address] [place] [address] Dr. Elaine Kee CULTURE BLOODon 11-05-2021 Microscopic examination of blood, culture Culture Observations: NO GROWTH AT 5 DAYS. Normal [facility] Comment on above: Performed By: #### B [id number] #### [facility] [address] [place] [address] Dr. Elaine Kee Microscopic examination of blood, culture Culture Observations: Positive blood culture. Anaerobic bottle. BCID=Klebsiella pneumoniae. Culture Observations: No growth in aerobic bottle at 5 days. Culture Observations: NO GROWTH in aerobic bottle AT 36-48 HOURS. FINAL TO FOLLOW. Normal [facility] Comment on above: Performed By: #### B [id number] ####[facility] [id number] [address]Dr[address] Elaine Kee ER URINE PROFILEon 2 Bilirubin Ql (U) Negative Normal NEGATIVE [facility] Comment on above: Performed By: #### C RP, CMP #### [facility] [address] [place] [address] Dr. Elaine Kee Clarity (U) SL CLOUDY Abnormal CLEAR [facility] Comment on above: Performed By: #### C RP, CMP #### [facility] [address] [place] [address] Dr. Elaine Kee Color (U) LT. YELLOW Normal YELLOW [facility] Comment on above: Performed By: #### C RP, CMP #### [facility] [address] [place] [address] Dr. Elaine GUERRERO A micrscopic examina tion will be performed if indicated. Normal [facility] Comment on above: Performed By: #### C RP, CMP #### [facility] [address] [place] [address] Dr. Elaine Kee Glucose Ql (U) Negative Normal NEGATIVE [facility] Comment on above: Performed By: #### C RP, CMP #### [facility] [address] [place] [address] Dr. Elaine Kee Hemoglobin Ql (U) MODERATE Abnormal NEGATIVE [facility] Comment on above: Performed By: #### C RP, CMP #### [facility] [address] [place] [address] Dr. Elaine Kee Ketones Ql (U) Negative Normal NEGATIVE [facility] Comment on above: Performed By: #### C RP, CMP #### [facility] [address] [place] [address] Dr. Elaine Kee LEUKOCYTES MODERATE Abnormal NEGATIVE [facility] Comment on above: Performed By: #### C RP, CMP #### [facility] [address] [place] [address] Dr. Elaine Kee Nitrite Ql (U) Negative Normal NEGATIVE [facility] Comment on above: Performed By: #### C RP, CMP #### [facility] [address] [place] [address] Dr. Elaine Kee pH (U) 6.0 [pH] Normal 5-9 [facility] Comment on above: Performed By: #### C RP, CMP #### [facility] [address] [place] [address] Dr. Elaine Kee SPEC GRAVITY 1.020 Normal 1.005-<=1. 025 [facility] Comment on above: Performed By: #### C RP, CMP #### [facility] [address] [place] [address] Dr. Elaine Kee UA PROTEIN TRACE Normal NEGATIVE/ TRACE [facility] Comment on above: Performed By: #### C RP, CMP #### [facility] [address] [place] [address] Dr. Elaine Kee UR MICRO IND INDICATED Normal [facility] Comment on above: Performed By: #### C RP, CMP #### [facility] [address] [place] [address] Dr. Elaine Kee Urobilinogen Qn (U) 0.2 {Ion'U}/dL Normal 0.2 - 1. 0 [facility] Comment on above: Performed By: #### C RP, CMP #### [facility] [address] [place] [address] Dr. Elaine Kee LACTATE/LACTIC ACIDon 2021 Lactate [Moles/Vol] 1.2 mmol/L Normal 0.7-2.0 [facility] Comment on above: Performed By: #### C RP, CMP #### [facility] [address] [place] [address] Dr. Elaine Kee URon 11-05-2021 , QUAL Negative Normal NEGATIVE [facility] Comment on above: Performed By: #### C RP, CMP #### [facility] [address] [place] [address] Dr. Elaine Kee PROF 14(COMP METB)on 022 Albumin [Mass/Vol] 3.6 g/dL Normal 3.4-5.0 [facility] Comment on above: Performed By: #### C RP, CMP #### [facility] [address] [place] [address] Dr. Elaine Kee Albumin/Globulin [Mass ratio] 0.9 {ratio} Normal [facility] Comment on above: Performed By: #### C RP, CMP #### [facility] [address] [place] [address] Dr. Elaine Kee ALP [Catalytic activity/Vol] 83 U/L Normal 46-116 [facility] Comment on above: Performed By: #### C RP, CMP #### [facility] [address] [place] [address] Dr. Elaine Kee ALT [Catalytic activity/Vol] 40 U/L Normal 14-59 [facility] Comment on above: Performed By: #### C RP, CMP #### [facility] [address] [place] [address] Dr. Elaine Kee Anion gap [Moles/Vol] 16.5 mmol/L Normal [facility] Comment on above: Performed By: #### C RP, CMP #### [facility] [address] [place] [address] Dr. Elaine Kee AST [Catalytic activity/Vol] 16 U/L Normal 15-37 [facility] Comment on above: Performed By: #### C RP, CMP #### [facility] [address] [place] [address] Dr. Elaine Kee Bilirubin [Mass/Vol] 0.3 mg/dL Normal 0.2-1.3 [facility] Comment on above: Performed By: #### C RP, CMP #### [facility] [address] [place] [address] Dr. Elaine Kee Calcium [Mass/Vol] 8.4 mg/dL Critically low 8.5-10.[address] [facility] Comment on above: Performed By: #### C RP, CMP #### [facility] [address] [place] [address] Dr. Elaine Kee Chloride [Moles/Vol] 104 mmol/L Normal 98-107 [facility] Comment on above: Performed By: #### C RP, CMP #### [facility] [address] [place] [address] Dr. Elaine Kee CO2 [Moles/Vol] 20.3 mmol/L Critically low 22.0-30.0 [facility] Comment on above: Performed By: #### C RP, CMP #### [facility] [address] [place] [address] Dr. Elaine Kee Creatinine [Mass/Vol] 0.64 mg/dL Normal 0.52-1.04 [facility] Comment on above: Performed By: #### C RP, CMP #### [facility] [address] [place] [address] Dr. Elaine Kee EGFR-AF WELSH >60 Normal >=60 [facility] Comment on above: Performed By: #### C RP, CMP #### [facility] [address] [place] [address] Dr. Elaine Kee EGFR-NON AF WELSH >60 Normal >=60 [facility] Comment on above: Performed By: #### C RP, CMP #### [facility] [address] [address] [address] Elaine Kee Globulin (S) [Mass/Vol] 3.9 g/dL Normal [facility] Comment on above: Performed By: #### C RP, CMP #### [facility] [address] [address] [address] Elaine Kee Glucose [Mass/Vol] 113 mg/dL Critically high 74-106 [facility] Comment on above: Performed By: #### C RP, CMP #### [facility] [address] [place] [address] Dr. Elaine Kee Potassium [Moles/Vol] 3.8 mmol/L Normal 3.4-5.0 [facility] Comment on above: Performed By: #### C RP, CMP #### [facility] [address] [place] [address] Dr. Elaine Kee Protein [Mass/Vol] 7.5 g/dL Normal 6.1-8.2 [facility] Comment on above: Performed By: #### C RP, CMP #### [facility] [address] [place] [address] Dr. Elaine Kee Sodium [Moles/Vol] 137 mmol/L Normal 137-145 [facility] Comment on above: Performed By: #### C RP, CMP #### [facility] [address] [place] [address] Dr. Elaine Kee Urea nitrogen [Mass/Vol] 12.0 mg/dL Normal 7.0-18.0 [facility] Comment on above: Performed By: #### C RP, CMP #### [facility] [address] [place] [address] Dr. Elaine Kee Urea nitrogen/Creatinine [Mass ratio] 18.8 mg/mg Normal [facility] Comment on above: Performed By: #### C RP, CMP #### [facility] [address] [place] [address] Dr. Elaine Kee URINE MICROSCOPIC ONLYon BACTERIA LARGE Abnormal NONE SEEN [facility] Comment on above: Performed By: #### C RP, CMP #### [facility] [address] [place] [address] Dr. Elaine Kee Bacteria identified Cx Nom (U) INDICATED Normal [facility] Comment on above: Performed By: #### C RP, CMP #### [facility] [address] [place] [address] Dr. Elaine Kee CAST NONE SEEN Normal NONE SEEN [facility] Comment on above: Performed By: #### C RP, CMP #### [facility] [address] [place] [address] Dr. Elaine Kee Crystals LM Nom (Urine sed) NONE SEEN Normal NONE SEEN [facility] Comment on above: Performed By: #### C RP, CMP #### [facility] [address] [place] [address] Dr. Elaine Kee Epithelial cells LM Ql (Urine sed) MODERATE Abnormal NONE SEEN /RARE [facility] Comment on above: Performed By: #### C RP, CMP #### [facility] [address] [place] [address] Dr. Elaine Kee MUCOUS SMALL Abnormal NONE SEEN [facility] Comment on above: Performed By: #### C RP, CMP #### [facility] [address] [place] [address] Dr. Elaine Kee RBC 5-10 Abnormal 0-2 [facility] Comment on above: Performed By: #### C RP, CMP #### [facility] [address] [place] [address] Dr. Elaine Kee WBC 20-50 Abnormal NONE SEEN [facility] Comment on above: Performed By: #### C RP, CMP #### [facility] [address] [place] [address] Dr. Elaine Kee VC COMP CONSULTATIONon 10-30 VC COMP CONSULTATION Patient: BRADY TINSLEY Exam Date: 10/30/2021 : 1995 Gender:F Ordering : DR LEEANNA CRONIN M.D. Admission #: [id number] Family : Order #: [id number] CLICK HERE TO VIEW EXAM CORRECTION: Change impression to C3 from C2 Corrected on: 10/30/2021; RADIOLOGY REPORT PROCEDURE: VEIN CENTER CONSULTATION VEIN CENTER - OFFICE VISIT INITIAL COMPARISON: VEIN CENTER CONSULTATION, 08/29/2019. PROGRESS NOTES: 26-year-old female who presents with a 3-4 year history of lower extremity pain swelling and varicose veins. The patient describes the pain as aching and throbbing rated as a 8 on a scale of 1-10. This is been exacerbated in the past 6 months following injury to the right knee with meniscal tear and ACL tear which has not been repaired. The patient's right knee pain has prevented any sort of lower extremity exercise, the patient has underlying cerebral palsy but is able to walk for short distances normally. The patient has not been able to walk or bike since her injury. The patient has not worn her thigh-high compression stockings as the silicone band has caused a rash on her skin. The patient denies any signs and symptoms to suggest arterial ischemia. The patient describes a family history pots syndrome in her mother. Varicose veins in a maternal grandmother. P 0 G0. The patient does not drink alcohol. The patient has never smoked. No drug use. No history of deep venous thrombus or pulmonary embolus. See separate history and physical for medication list. No prior treatment for varicose or spider veins. Nursing notes were reviewed. After history and physical exam I discussed at length the pathophysiology her lower extremity subcutaneous edema and possible treatments, therapies and strategies available. I do not believe that her swelling is related to very minimal vein disease, likely related to lower extremity inactivity and being in a wheelchair secondary to cerebral palsy and right knee injury which precludes any type of leg exercise at this time. We discussed at length the importance of elevating the lower extremities above the level of the heart, increased physical activity and compression stocking use. I did switch the patient to knee high compression stockings due to her rash. Ultrasound venous reflux study performed the same day was discussed at length with the patient. The report demonstrates minimal right saphenofemoral junction reflux. PHYSICAL EXAM: The right leg demonstrates no significant varicose, reticular or spider veins. No active ulceration or skin discoloration. Moderate subcutaneous edema below the knee. The left leg demonstrates no significant varicose, reticular or spider veins. No active ulceration or skin discoloration. Moderate subcutaneous edema below the knee. Both thighs, legs and feet were symmetrically warm to the touch. Good posterior tibial and dorsalis pedis pulses were present bilaterally. IMPRESSION: 1. No significant lower extremity venous insufficiency 2. No significant lower extremity varicose veins 3. Moderate bilateral below knee lower extremity lymphedema, likely at least partially related to physical inactivity 4. No flow significant arterial disease 5. CEAP: C3, En, An, Pn PLAN: 1. Long-term use of bilateral knee high 20-30 mm compression stockings. Proper use was discussed at length with the patient 2. Elevated legs above the level of the hard 3. Increased physical activity with the lower extremities and weight loss once her right knee is repaired Nurse notes, history and physical were reviewed and confirmed, see attached forms. The nurse was present throughout the physical exam and consultation Dictated by: Leeanna Cronin MD on 10/30/2021 at 10:35 Approved by: Leeanna Cronin MD on 10/30/2021 at 10:40 Dictated by: Leeanna Cornin MD on 10/30/2021 at 10:42 Approved by: Leeanna Cronin MD on 10/30/2021 at 10:42 Normal [facility] VC VENOUS REFLUX JOEY LMTon 0 10-30-2021 VC VENOUS REFLUX JOEY LMT Patient: VIJAYA TINSLEY Exam Date: 10/30/2021 : 1995 Gender:F Ordering : DR LEEANNA CRONIN M.D. Admission #: [id number] Family : Order #: [id number] CLICK HERE TO VIEW EXAM RADIOLOGY REPORT PROCEDURE: VEIN CENTER ULTRASOUND VENOUS REFLUX BILATERAL LIMTED COMPARISON: VC VENOUS REFLUX JOEY LMT, 08/29/2019. INDICATIONS: Pain co-occurrent and due to varicose veins of bilateral legs I83.813 TECHNIQUE: Duplex imaging of the lower extremity to assess the deep and superficial venous system for the presence of deep or superficial venous incompetence and to document the location and severity of disease. The study includes evaluation of the great saphenous vein (GSV), anterior accessory saphenous vein (AASV) and small saphenous vein (SSV). Patient scanned in reverse Trendelenburg and standing. FINDINGS: RIGHT LOWER EXTREMITY: Saphenofemoral Junction Reflux: Yes 9.0mm 1.5 sec GSV: Diam (mm) Reflux/ Time (sec) Proximal Thigh 6.1 Yes 0.4 Mid Thigh 4.4 No Distal Thigh 4.5 No Prox Calf 2.3 No Mid Calf 2.6 Yes 0.1 Saphenopopliteal Junction Reflux: None SSV: Proximal Calf 2.5 Yes 0.1 Mid Calf 2.8 Yes 0.1 AASV: Thrombi: None Compressibility: Normal. Flow: Normal. Preforator: Mid calf perf measures 4.0 mm with 0.2 seconds reflux. Posterior calf 2.9 mm with 0.2s reflux. Tech Note: Mild lower leg edema. Mildly incompetent SFJ, GSV, SSV, and varicose veins. Mid calf medial varicose vein measures 2.2 mm with 0.1 seconds of reflux. LEFT LOWER EXTREMITY: Saphenofemoral Junction Reflux: Yes 9.5 mm 0.2 sec GSV: Diam (mm) Reflux/Time (sec) Proximal Thigh 5.8 Yes 0.6 Mid Thigh 5.2 Yes 0.4 Distal Thigh 6.6 No Prox Calf 3.3 Yes 0.2 Mid Calf Saphenopopliteal Junction Relux: None SSV: Proximal Calf 2.8 Yes 0.3 Mid Calf 2.7 Yes 0.1 AASV: Thrombi: None. Compressibility: Normal. Flow: Normal. Monkey Keeper: None. Tech Note: Mildly incompetent SFJ, GSV, SSV, and varicose veins. Varicose vein mid thigh off of GSV measures 5.5 mm with 0.2 seconds of reflux. Mid thigh varicose vein measures 2.8 mm. CONCLUSION: 1. Mild right saphenofemoral junction reflux 2. Left leg branch saphenous tributary with dilatation but no significant reflux Dictated by: Leeanna Cronin MD on 10/30/2021 at 10:06 Approved by: Leeanna Cronin MD on 10/30/2021 at 10:09 Normal [facility] Ambulatory Visit Summaryon 0 10-19-2021 Ambulatory Visit Summary VIJAYA TINSLEY :1995 Visit Date:10/19/2021 Ambulatory Visit Instructions Your Diagnosis OAB (overactive bladder) Feeling of incomplete bladder emptying Cerebral palsy UTI (urinary tract infection) Your Care Team Attending Physician - Fatuma Wheeler MD Primary Care Physician - DIONNE CHAMBERS DO This Is Your Medications List mirabegron (Myrbetriq 25 mg oral tablet, extended release) oxybutynin (oxybutynin 10 mg ER Tab) Contact prescribing physician if questions or concerns docusate (Colace) phentermine (phentermine 37.5 mg oral tablet) Procedures Performed Procedure on ankle. Discharge Vitals Heart Rate (Peripheral) 85 Respiratory Rate 16 Blood Pressure 125/78 Height 157.0 cm Height 157 cm Weight 94.0 kg Weight 94 kg BMI 38.14 What to do next Scheduled Follow-Up Appointments Tuesday 1:45 PM EDT With: Fatuma Wheeler MD Where: [facility] Patient Educationon 10-20-19 Patient Education Obstetrics and Gynecology Overactive Bladder, Adult Overactive bladder refers to a condition in which a person has a sudden need to pass urine. The person may leak urine if he or she cannot get to the bathroom fast enough (urinary incontinence). A person with this condition may also wake up several times in the night to go to the bathroom. Overactive bladder is associated with poor nerve signals between your bladder and your brain. Your bladder may get the signal to empty before it is full. You may also have very sensitive muscles that make your bladder squeeze too soon. These symptoms might interfere with daily work or social activities. What are the causes? This condition may be associated with or caused by: ? Urinary tract infection. ? Infection of nearby tissues, such as the prostate. ? Prostate enlargement. ? Surgery on the uterus or urethra. ? Bladder stones, inflammation, or tumors. ? Drinking too much caffeine or alcohol. ? Certain medicines, especially medicines that get rid of extra fluid in the body (diuretics). ? Muscle or nerve weakness, especially from: ? A spinal cord injury. ? Stroke. ? Multiple sclerosis. ? Parkinson's disease. ? Diabetes. ? Constipation. What increases the risk? You may be at greater risk for overactive bladder if you: ? Are an older adult. ? Smoke. ? Are going through menopause. ? Have prostate problems. ? Have a neurological disease, such as stroke, dementia, Parkinson's disease, or multiple sclerosis (MS). ? Eat or drink things that irritate the bladder. These include alcohol, spicy food, and caffeine. ? Are overweight or obese. What are the signs or symptoms? Symptoms of this condition include: ? Sudden, strong urge to urinate. ? Leaking urine. ? Urinating 8 or more times a day. ? Waking up to urinate 2 or more times a night. How is this diagnosed? Your health care provider may suspect overactive bladder based on your symptoms. He or she will diagnose this condition by: ? A physical exam and medical history. ? Blood or urine tests. You might need bladder or urine tests to help determine what is causing your overactive bladder. You might also need to see a health care provider who specializes in urinary tract problems (urologist). How is this treated? Treatment for overactive bladder depends on the cause of your condition and whether it is mild or severe. You can also make lifestyle changes at home. Options include: ? Bladder training. This may include: ? Learning to control the urge to urinate by following a schedule that directs you to urinate at regular intervals (timed voiding). ? Doing Kegel exercises to strengthen your pelvic floor muscles, which support your bladder. Toning these muscles can help you control urination, even if your bladder muscles are overactive. ? Special devices. This may include: ? Biofeedback, which uses sensors to help you become aware of your body's signals. ? Electrical stimulation, which uses electrodes placed inside the body (implanted) or outside the body. These electrodes send gentle pulses of electricity to strengthen the nerves or muscles that control the bladder. ? Women may use a plastic device that fits into the vagina and supports the bladder (pessary). ? Medicines. ? Antibiotics to treat bladder infection. ? Antispasmodics to stop the bladder from releasing urine at the wrong time. ? Tricyclic antidepressants to relax bladder muscles. ? Injections of botulinum toxin type A directly into the bladder tissue to relax bladder muscles. ? Lifestyle changes. This may include: ? Weight loss. Talk to your health care provider about weight loss methods that would work best for you. ? Diet changes. This may include reducing how much alcohol and caffeine you consume, or drinking fluids at different times of the day. ? Not smoking. Do not use any products that contain nicotine or tobacco, such as cigarettes and e-cigarettes. If you need help quitting, ask your health care provider. ? Surgery. ? A device may be implanted to help manage the nerve signals that control urination. ? An electrode may be implanted to stimulate electrical signals in the bladder. ? A procedure may be done to change the shape of the bladder. This is done only in very severe cases. Follow these instructions at home: Lifestyle ? Make any diet or lifestyle changes that are recommended by your health care provider. These may include: ? Drinking less fluid or drinking fluids at different times of the day. ? Cutting down on caffeine or alcohol. ? Doing Kegel exercises. ? Losing weight if needed. ? Eating a healthy and balanced diet to prevent constipation. This may include: ? Eating foods that are high in fiber, such as fresh fruits and vegetables, whole grains, and beans. ? Limiting foods that are high in fat and processed sugars, such as fried and sweet foods. General instructions ? Take ove (more content not included)... Normal [facility] Urology Office/Clinic Noteon 10-19-2021 Urology Office/Clinic Note Chief Complaint Pt is here for 3 mos f/u HPI Staff Pt is here to discuss bladder medication. She's currently taking Oxybutynin 10mg therapy. 3 mos f/u to feelings of incomplete bladder emptying, OAB, UTI, Cerebral palsy. No urine specimen given. Pt states she urinated before she left home. Dysuria: No Incomplete bladder emptying: No Hematuria: No Frequency: No Urgency: No - better with medication Nocturia: No Stream: No Leaking: mild - might leak a little if she holds her urine too long Wearing pads/ Depends: occasionally uses small pad History of Present Illness Tests Reviewed: Reviewed UA I have reviewed the previous health record information and history for this patient from Dr. Wheeler I have reviewed and verified the staff HPI to be accurate for this encounter. There have been no associated fever, chills, flank pain, or blood in the urine. Denies any urinary infections since last encounter. Review of Systems PHQ Score Initial Depression Screen Score: 0 ROS - Provider Constitutional: denies weight loss, denies hot flashes. Eyes: denies eye problems. Gastrointestinal: denies nausea, denies vomiting. Cardiovascular: denies chest pain or angina. Integumentary: no dryness Musculoskeletal: severe musculoskeletal symptoms -Lower extremity spasticity and weakness, in a wheelchair today ENMT: denies otolaryngeal symptoms. Respiratory: no shortness of breath. Heme/Lymph: denies easy bleeding tendency, denies easy bruising tendency. Psychiatric: no confusion, no anxiety. Genitourinary: see HPI Physical Exam Vitals & Measurements HR: 85(Peripheral) RR: 16 BP: 125/78 HT: 157.0 cm HT: 157 cm WT: 94.0 kg WT: 94 kg BMI: 38.14 General Appearance: alert , no acute distress, well nourished, well developed female. In wheelchair Head: normocephalic . Eyes: normal orbit and globe. ENMT: normal examination of external ears. Chest: Symmetric chest rise,, respirations non labored . Cardiovascular: regular rate and rhythm. Abdomen: soft, non distended, no tenderness Genitourinary: bladder nonpalpable, no flank tenderness. Skin: warm, dry, no bruising. Psychiatric: cooperative, affect appropriate for age, normal judgement, euthymic mood. Assessment/Plan 1. OAB (overactive bladder) (N32.81: Overactive bladder) Urodynamics done 06/29/2021 - unstable detrusor overactivity with leakage (PDet 116 cmH20 at volume 36mL), low capacity bladder 113mL, compliant, high pressure/low flow with voiding but improving emptying with PVR 50mL. Patient is currently taking oxybutynin 10mg ER qd with good results, states she has noticed a difference. She has failed Myrbetriq-no noticeable control of her urgency and frequency after 1 month trial. Given need to be on this long-term, again discussed the side effects including cognitive and memory issues in the future. Given she already has memory issues and cerebral palsy, she strongly desires alternative medication with lower cognitive effects. Discussed trospium being the lowest risk for [employer] side effects. -Will start patient on trospium 60mg ER qd. She is to stop the oxybutynin for now once starting new med, if trospium does not work she can stop that and switch back to oxybutynin. Patient will follow up in 1 month or sooner if needed prior to going back to [place] in December. Patient will call if she wants to schedule botox - she wants this under anesthesia. The procedural risks, benefits, details, and treatment alternatives have been discussed with the patient. These include bleeding, infection, continued problems with overactive bladder, inability to empty the bladder which could require an indwelling catheter or need for in/out catheterization to empty the bladder, and need for repeat procedures over time (usually lasts up to six months), as well as fatigue and insomnia, among others. There is a minimal risk of Botox entering the blood stream and causing neurological problems, which is quite rare. 2. Feeling of incomplete bladder emptying (R39.14: Feeling of incomplete bladder emptying) Urodynamics done 06/29/2021 - unstable detrusor overactivity with leakage (PDet 116 cmH20 at volume 36mL), low capacity bladder 113mL, compliant, high pressure/low flow with voiding but improving emptying with PVR 50mL. -Controlled on medications 3. 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 Uses crutches to walk but currently in wheelchair due to low back fracture. Active, recently in [employer]. Bowel and bladder health crucial for pt. Discussed the importance of this, Patient has been taking Colace stool softeners every day and has noticed an is having regular bowel movements. 4. UTI (urinary tract infection) (N30.00: Acute cystitis without hematuria) Hx of febrile UTI. Two infections this year (late March & Apr.). UACS 07/01/2021 POS for Klebsiella pneumoniae, resistant to ampicillin and nitrofurantoin. denies any infecti (more content not included)... Normal [facility] Comment on above: Result Comment: Elec tronically Signed By: Fatuma Wheeler MD\.br\Date and Time Signed: 10/19/21 15:32 EDT\.br\Electronically Co-Signed By: Verna Pedraza MA\.br\Date and Time Co-Signed: 10/19/21 15:22 EDT Ambulatory Clinical Summaryo n 07-10-2021 Ambulatory Clinical Summary {[id number] }[id number] Normal [facility] Patient Educationon 07-10-20 Patient Education Obstetrics and Gynecology Overactive Bladder, Adult Overactive bladder refers to a condition in which a person has a sudden need to pass urine. The person may leak urine if he or she cannot get to the bathroom fast enough (urinary incontinence). A person with this condition may also wake up several times in the night to go to the bathroom. Overactive bladder is associated with poor nerve signals between your bladder and your brain. Your bladder may get the signal to empty before it is full. You may also have very sensitive muscles that make your bladder squeeze too soon. These symptoms might interfere with daily work or social activities. What are the causes? This condition may be associated with or caused by: ? Urinary tract infection. ? Infection of nearby tissues, such as the prostate. ? Prostate enlargement. ? Surgery on the uterus or urethra. ? Bladder stones, inflammation, or tumors. ? Drinking too much caffeine or alcohol. ? Certain medicines, especially medicines that get rid of extra fluid in the body (diuretics). ? Muscle or nerve weakness, especially from: ? A spinal cord injury. ? Stroke. ? Multiple sclerosis. ? Parkinson's disease. ? Diabetes. ? Constipation. What increases the risk? You may be at greater risk for overactive bladder if you: ? Are an older adult. ? Smoke. ? Are going through menopause. ? Have prostate problems. ? Have a neurological disease, such as stroke, dementia, Parkinson's disease, or multiple sclerosis (MS). ? Eat or drink things that irritate the bladder. These include alcohol, spicy food, and caffeine. ? Are overweight or obese. What are the signs or symptoms? Symptoms of this condition include: ? Sudden, strong urge to urinate. ? Leaking urine. ? Urinating 8 or more times a day. ? Waking up to urinate 2 or more times a night. How is this diagnosed? Your health care provider may suspect overactive bladder based on your symptoms. He or she will diagnose this condition by: ? A physical exam and medical history. ? Blood or urine tests. You might need bladder or urine tests to help determine what is causing your overactive bladder. You might also need to see a health care provider who specializes in urinary tract problems (urologist). How is this treated? Treatment for overactive bladder depends on the cause of your condition and whether it is mild or severe. You can also make lifestyle changes at home. Options include: ? Bladder training. This may include: ? Learning to control the urge to urinate by following a schedule that directs you to urinate at regular intervals (timed voiding). ? Doing Kegel exercises to strengthen your pelvic floor muscles, which support your bladder. Toning these muscles can help you control urination, even if your bladder muscles are overactive. ? Special devices. This may include: ? Biofeedback, which uses sensors to help you become aware of your body's signals. ? Electrical stimulation, which uses electrodes placed inside the body (implanted) or outside the body. These electrodes send gentle pulses of electricity to strengthen the nerves or muscles that control the bladder. ? Women may use a plastic device that fits into the vagina and supports the bladder (pessary). ? Medicines. ? Antibiotics to treat bladder infection. ? Antispasmodics to stop the bladder from releasing urine at the wrong time. ? Tricyclic antidepressants to relax bladder muscles. ? Injections of botulinum toxin type A directly into the bladder tissue to relax bladder muscles. ? Lifestyle changes. This may include: ? Weight loss. Talk to your health care provider about weight loss methods that would work best for you. ? Diet changes. This may include reducing how much alcohol and caffeine you consume, or drinking fluids at different times of the day. ? Not smoking. Do not use any products that contain nicotine or tobacco, such as cigarettes and e-cigarettes. If you need help quitting, ask your health care provider. ? Surgery. ? A device may be implanted to help manage the nerve signals that control urination. ? An electrode may be implanted to stimulate electrical signals in the bladder. ? A procedure may be done to change the shape of the bladder. This is done only in very severe cases. Follow these instructions at home: Lifestyle ? Make any diet or lifestyle changes that are recommended by your health care provider. These may include: ? Drinking less fluid or drinking fluids at different times of the day. ? Cutting down on caffeine or alcohol. ? Doing Kegel exercises. ? Losing weight if needed. ? Eating a healthy and balanced diet to prevent constipation. This may include: ? Eating foods that are high in fiber, such as fresh fruits and vegetables, whole grains, and beans. ? Limiting foods that are high in fat and processed sugars, such as fried and sweet foods. General instructions ? Take ove (more content not included)... Normal [facility] Urology Office/Clinic Noteon 07-10-2021 Urology Office/Clinic Note HPI Staff Vijaya is a 25 y/o female here to discuss her medications. Dysuria: _denies Incomplete bladder emptying: _denies Hematuria: _denies Frequency: _denies Urgency: _denies Nocturia: _denies Stream: _strong Leaking: _denies Post void dripping: _denies Wearing pads/ Depends: _yes Urge incontinence: _denies Stress incontinence: _mild Incontinence without Sensory Awareness: _denies Abdominal pain: _denies Flank pain: _denies Sexual complaints: _ History of Present Illness There have been no associated fever, chills, flank pain or blood in the urine. Pt. denies any pain/burning with urination at this time. I have reviewed and verified the staff HPI to be accurate for this encounter. I have reviewed the previous health record information and history for this patient from Dr. Wheeler. Review of Systems ROS - Provider Constitutional: denies weight loss, denies hot flashes. Eyes: denies eye problems. Gastrointestinal: denies nausea, denies vomiting. Cardiovascular: denies chest pain or angina. Integumentary: no dryness Musculoskeletal: R knee pain, CP ENMT: denies otolaryngeal symptoms. Respiratory: no shortness of breath. Heme/Lymph: denies easy bleeding tendency, denies easy bruising tendency. Psychiatric: no confusion, no anxiety. Genitourinary: See HPI Physical Exam Vitals & Measurements HR: 97(Peripheral) BP: 128/73 HT: 157 cm HT: 157.0 cm WT: 100 kg WT: 100.0 kg BMI: 40.57 General Appearance: alert , no acute distress, well nourished, well developed female. Genitourinary: bladder nonpalpable, no flank pain. Assessment/Plan 1. Feeling of incomplete bladder emptying (R39.14: Feeling of incomplete bladder emptying) Urodynamics done 06/29/2021- unstable detrusor overactivity with leakage (PDet 116cm H20 at volume 36ml), low capacity bladder 113ml, compliant, high pressure/low flow with voiding but improving emptying with PVR 50ml. Talked to pt. about CIC, pt. states she thinks she would be able to do it. -Dc flomax given hypotension. Cont timed voiding 2. OAB (overactive bladder) (N32.81: Overactive bladder) Discontinuing Oxybutynin 10 mg ER due to constipation, which pt already has at baseline. -Will start Myrbetriq 25mg qd. Discussed the medication side effects, and the patient will monitor closely for these, as well as for symptom improvement. If severe side effects occur, the medication should be stopped and the office notified. -Pt. states if she fails Myrbetriq she would rather go back on Oxybutynin 5 mg and deal with the side effects than undergo botox and risk need for CIC if rare side effect of retention occurs. Educated pt. that we will have to repeat Urodynamics in 3-6 months to ensure medications working well enough to keep bladder pressures low Pt. to call w/ an update. 3. UTI (urinary tract infection) (N30.00: Acute cystitis without hematuria) Hx of febrile UTI. Two infections this year (late March & Apr.). UACS 07/01/2021 POS for Klebsiella pneumoniae, resistant to ampicillin and nitrofurantoin. Pt. to continue bowel regimen due to pt. already having problems w/ constipation. MiraLAX BID if no results with 1 packet. Mag Citrate if no results. Once having good BM's or liquid, back down to miralax daily, if still loose then Colace/senna daily. Increase water and fiber. 4. 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 Uses crutches to walk but currently in wheelchair due to low back fracture. Pt. is active. Discussed importance of continued monitoring of bladder/bowel health due to neurologic condition. Goal is to protect upper tracts by keeping bladder pressures low. Follow-up With When Contact Information Liam DÍAZ, Fatuma Hernandez, URL, URO Additional Instructions: Patient Education Overactive Bladder, Adult I, Manasa Casiano, personally scribed for Dr. Wheeler on 07/10/2021 13:59:35. . Documentation recorded by the scribe, Michelle Casiano, accurately reflects the services(s) I performed and decisions made by me. Authenticated by Dr. Wheeler on 07/10/2021 14:04:55. Problem List/Past Medical History Ongoing Asthma Cerebral palsy Feeling of incomplete bladder emptying Frequency of urination Head ache Hypertension Neurogenic bladder OAB (overactive bladder) POTS (postural orthostatic tachycardia syndrome) UTI (urinary tract infection) Historical No qualifying data Procedure/Surgical History Procedure on ankle. Medications Flomax 0.4 mg Cap, 0.4 mg= 1 cap(s), Oral, Daily, 3 refills oxybutynin 10 mg ER Tab, 10 mg= 1 tab(s), Oral, Daily, 5 refills phentermine 37.5 mg oral tablet, 37.5 mg= 1 tab(s), Oral, Daily Allergies ZyrTEC (Hives) amoxicillin (Diarrhea) Social History Tobacco Never (less than 100 in lifetime) Tobacco Use:. Never Smokeless Tobacco Use:., 07/10/2021 Family History Hypertension: Mother. Immunizations (more content not included)... [facility] Comment on above: Result Comment: Elec tronically Signed By: Liam DÍAZ, Fatuma Hernandez\.br\Date and Time Signed: 07/10/21 14:06 EST\.br\Electronically Co-Signed By: Manasa Casiano\.br\Date and Time Co-Signed: 07/10/21 14:00 EST Pre-Certification Formon Pre-Certification Form [id number]: 127 [facility] Coding Summary.on 07-06-2021 Coding Summary. CD:[id number]:[id number] Gh0b Ww+PGhlYWQ+EU2LDYMnI16jl IGrcC3XL9dMOR7EHTNDXVGUM Y8YTR9toQT4ILbxF4BeawTy AqtwpYDbAE25CAd7GCX6jByd XGqcpT5rhJIvN7y1HiCgNA98 gC64TGweZOXjWjR4JhSsxgjd bWFy K5kaKiIikAQoFrt+PHRhYmxl IHdpZHRoPScxMDAlJyBzdHls KT2lXj5hNRHiMMYwkEusbJQr OiBj t2plJZRuRBypSL2pvLdmT7Ro aJG9RONcr7w0Bu19zMF+PHRk MXK5fOpbXKfhh090ItAty1uh IDM3 mSQeXSduPES1D71zr5M5POJh YAElYAJ1iUA5eM3huVfhsqdh N2TkkYKuVyB1QNT7aAEolA9i bGln wsxsxB1mFvq+H53SUE7JSOMR FT7BFej3T9NxMgvxaDD+PC90 RZAyYY49rRAylYAjm2yveYh7 JzEw SULzJFI5sFxlLKcge3EnJBHt H09afUPxr4Y7UWKavDibsVXw FlOdxDZ3gD1yAOouxekio1wq dzsn Elwhs2umva91zW84S09wZYwp UMJbJDB6VUTbDLOjsAkttq7m oT6sPc1+JGvmk4rbn9eamWl7 IjIw KEAjdmPxvNoyIPP6z7XdWh04 V2IvsQaio7StMvb7nv63tCOg t3K4pRL5NEyjPVDncF6rPQft ZnQ6 XCHvQsLnhN17xMWwZVksBw8n iUxurNuhMT5aZRCjvtnkXVJu lP4jDKHbgRTgyWaoPL9eWJOo bjtm a850PyNbFNL8FLDxhVRiC1Zu fK9vNfZkMVHqOPMeN2DyrOQn RNuwR306PVqfFbD7TGVkfkLa Y2Fs CBXwoOnlRgX5a8H6Fv1Pq7Dy stfkTZW1YWecEOMiVqG0PuLc BnQ3Y8KtAtv4LOAbcZnhFR3v J3Bh WMIzexoryeylsID1TVKxZBTl rB95uQZvUZtbIq4ac4Q3q032 FZNtDYRoeL53Sf8iaLuyPYPk dCBU gP8kwmufa1kybolmZeHkCXXh BOb0YGi1BXWbhOzzQiHrTMI7 ZtE2XDA0eBYpjM2reIcvmkhh dG9w Oyc+H57zvH9uPKZ2HUA3pklp CTPwtsYnZO25PM72S6QcCymd dGFibGU+XHBdogBckWrgGR7f YmFj g5dvd8VjFCayC3YaNHMzZQbo Bkk5COQlHAW5aFG0zD2mLPEk GUjvl1R5uHZ1D8DzthPgry2x b2xs KPGdRNsdZ42zfBSfc0F6OGCc vNL4SFXohNixBfOieL18Tdy+ NEDdjTfuj5XkHisxb7igd4pu dGg9 CvVqNQTaewWkxWulQYB5b9Cu Sj85F46kLBjxSMSrHFKlZLLf BMNspCljtv1vyM5aCg5+PGNv bCB3 iIX0jJ1tHXZrVvZ4OHfiB809 AcWwmMZcGfmhh1ajw5ecpYy9 YpNrRNHconMsbBduEVX9g2Fc Lz48 N55uNKqlQHKoQEPuSIIqNEKz rRqleo7umR0rPx1+HR5nn9zu vj97hY63iNR+DHUrNEC4mErf PSdw VFBysB4lMKsxTbJ5ATLjNcMw fN07bVLwEGqvMz9yoQzupDsm OW4nFOUxlnzgw547UjSrq4mn IDEw qYPfXBvsMFH0V94zp7M2LCUy AENtVDQ0sYV6kM6gvGizpnfq bGVmdDsgdmVydGljYWwtYWxp Z246 IHRvcDsnPlBhdGllbnQgTmFt PBg4G2PrYsn8AQUalBypBG6q wPYvSXycPv6usWpqbFgcTJ8r NTBp zldbo556NlHbi9vhHTKhvPZd QYduNJH2W77sf0F4CBYsLQFw YPX1pMC7qU4cxFgofkogqZAz dDsg irTabHwkJOgzNCinM717BZUt sMfgSuLsqaUlFDUggPJ2XN82 PH08bWHgd8V5nPD0M4UvYDBi bmct rsmcqLT6BGZtCMSugH87Av9l kWenBu2oFNXiFBE5QCEkaJHf R2OzeL6nDdPmUOApHKDiH9Oa eHQt ZXwmA362BYleShO4XWEhexUk Q2MaSETejSayUuJ0y6M4Zp6V O0I5TP13YT70xKSfy0D3zZD1 J3Bh UCBufodmxfjiqRR5WEZxDPUl lD14Tp9seYdvAm8gMTStVVF5 NMRczCSfG1LoaR5tJnDqDSSs MDAw A8JhuSXlSIbzJ308VVadObT4 NLRequNdI4BtZCGfbOmjXsW1 r2R1Yo7OCTd6DM38LN73eBEk c3R5 gCU5E5VgOKZxexvmqibvjJV8 BSXjGHYwvY13Io0ipCwoXt3a DEWmSBS1OYCqhNJvC3GymE1n OiAj ISByYXFwV7RnvWTnSGnlG946 YNwjCfZ8LCJkesNsF8TjTZDf jWdsTrN1x7K3Mj8UOLCbVX63 IFR5 hYI2SF89UW56Z2JdLpjbjUNa bGU+PHRhYmxlIHdpZHRoPScx VHCiVeAjrIrkUS7aZc6bEWMk LWNv bPpxaGAaTxYri4ekZEVrCUse VK5rzIyeH5BttFK5QQFtf8y2 Dk43O10zV4UcbAD+PGNvbCB3 aWR0 nH6vNsLxFnC5AMulG759QxRj aZIdKgpuv8lxk3nnlCp4NaO4 EALubiGsaIheCNC6p8HwWn06 Y29s IHdpZHRoPSIxNSUiIHZhbGln fw5cnX7cQw8+OEDdnQQ2gDT5 xA7uIpDvGsD6SIgyO638UkAp cCIv Ceufm6vkz0xntDf0NjOhSRKq gvNdxTwcHAH9e9GtRx60W2Vw vOdxu2ReYfj8sa37dYSqm4F4 bGU9 Z6ZuKBTarziqnZBobWycCQ7j OXUnwpvdOOWjuH5eDDDyK8p8 YxDvIqA5NCofP4LvhtY7TPGu cHQg LFwiWOE8P00fv5K3KPFeWFZd WJI2eOR3vJ7ptXccqmquqBQt rIpkneNqgSwbLLrfSQdxO809 IHRv qSutRNQgaD2oBBIhkHNiaPvp IG0pAUQrtskqKlIHJj9BMqud CPMPMU2GEX80Q5RhFtf7JWKo dHls JD3lwANhQPvfMv7ybDxdzEap BH0oEBYxmcvqEYAcoG7rAMRh xABimVbdLR9sDNHilbcdg573 OiAx UWL1VQYquMJsG7HcsG2eDnXo RYIxTLSoN4NuuUQxTTplU575 JVmtNrA1PDClygCaY6KoSFXr aWdu SmS9g7Y5Ex7zAc7gXs7mUTs3 VT13LN29iZVfk4Y3iOV1L6Az ECTlasasmeoaoLE8CGHvZWKg aW47 eUPqEXxbFh4zw9M9g715KEXo YMThuK83Da2yeYfsJVTaqRUK yS0shpjwd7dxurbgTsQdNILi MDt0 LDc6YWMvxJjgYtPyUXI8TrJ3 KPW3tPEokT8yiZxlcsnmsB6t Oyc+LiIvUMJrmnT1F6GlKmq0 ZCBz uLyxVF1dxUVpQQkjTb1ivPyp zVkaBW9wGIVnjvemEKLasA2z KLTxjAZhsJvtDJ4kLNQohhng b250 NqWzGDV2FNOrvAPfO4FjdZ2k DvDzFEHqSOIlX9IejEFlYCph F025XUbjQuI7XDJcxyItB4Dx LWFs aZsjXuC4t6B0Np4CBA2emDB4 Q7MjKns3LHTuqRbyIR5xdRLc AObpZt6qzQhllWbgIA2cGYMy bjtw KCIpiJ3wCSMvgQNbgJddTQ7a RZWeyrmto540QqUuPNX3AXFl xZCzZ3FpoA7yGxDcMBFoTJEt O3Rl xRVtWApnF955ADlbMfE6ZVEh zvHdL8BoKYFsaNxoXqK7m5Z3 Jn0BeKPsZLEtHX21AE38TV95 L3Ry PjwvdGFibGU+PHRhYmxlIHdp FDSvMJlzXIOwOiWltMqzDW1m Cg8aBMSnUPWkmSyklCGaHkRd b2xs PZXmBZawEC6akNtzL7PcdCC4 DRUah1m8Em82D49wJ7HbiFC+ YIKasQX4iYG7xB3rQlGhRmR8 YWxp E380XdUirTItLdewd6lxv0mb zYg0AjIrONCxcoMwlTfxIDU3 d0WbUu35E45zUJxfVJPfLIVg MCUi WPOfbQnqok7zvN9xXc2+PGNv hFT0zFB0aM8eBlFjVeQ4HPpk W373VmMjaAWhSpdhV33tV7Ly dXA+ ZDUzAyk5NLJzwRmvPA4dnVEf AIkoUa7bYIS1CtJqGaMvIXqm X3BfFSAuqnqihdlivHF7MYGz MDUw vG58Xo7udAptZs7vXMRqCCN7 UJHwvEVoI6QmrJ5nDcAlWMJx JPGwU9PhdJQtKIgfO484EZsj ZnQ7 PVIytrFdD4VjXQFruCseZkC5 x5R6Bv5AlEsbuQBsBO8nJsYe HAe3U9IwLhz7JYPpzVeaDO5x cGFk VCjhIf1fiGqszNynNG0eHKXs qbmph987OdIez2usSAUdqRSd PMgtYML2E56tf3C2ZEStZBDe MDA7 tEE8bV1yvPajvoezyCIepAly rwLwzJcuNJyjCHixV252HBBq pCejFoDLKfx4X0NhLfm3LSWe [facility] MN5vvBEbOBkbXh4lxJujqAko QT4zJQBaamcgh529QgRkd3dy GERybVHuEVnuJSM9M38qm4T3 ICMw HGMiABB2fPV3nC5wlIqdynmt bGVmdDsgdmVydGljYWwtYWxp Q080GORduHlbMx5MFpj1O5Fl Pjx0 TRMjcYqxPM8onBVuOGkgFs6v tKgayIoyLY9pZVTfvrfkm909 LwJpr8ztHNQtyYEaXPqkPUM4 Y29s h6Y1NNMwBSVdNMU7sOF8xU5w bGlnbjogbGVmdDsgdmVydGlj AWgqHNbnG421PQEydAidFiBx eWVy OjwvdGQ+CU25ex65Y7MoMyje Nyx8VEUoCOG6yBS8aX9xEOKz BQpin1P2cNR6X7ApdfIuho7k b2xs YXBz (more content not included)... Normal [facility] Consent for Procedure/Surger yon 07-06-2021 Consent for Procedure/Surgery [id number] :127 [facility] IntraOperative Documentson 1 09-05-2020 IntraOperative Documents [id number] :127 [facility] Ambulatory Clinical Summaryo n 07-01-2021 Ambulatory Clinical Summary {[id number] }[id number] [facility] C Urineon 07-01-2021 Bacteria identified Cx Nom (U) Microbiology PROCEDURE: Urine Culture [R1] SOURCE: U Cath BODY SITE: COLLECTED DATE/TIME: 06/29/2021 11:20 EST RECEIVED DATE/TIME: 06/29/2021 16:21 EST START DATE/TIME: 06/29/2021 16:21 EST FREE TEXT SOURCE: kirsten Wheeler MD, Fatuma Wheeler MD, Fatuma Hernandez FINAL REPORTS Final Report [] Verified Date/Time: 07/01/2021 10:12 EST >100,000 cfu/ml Klebsiella pneumoniae SUSCEPTIBILITY RESULTS LEGEND: S=Susceptible, N/R=Not Reported, Blank=Data not available, or drug not advisable or tested, I=Intermediate, ESBL=Extended spectrum beta-lactamase, R=Resistant, TFG=Thymidine-dependent strain, SHEILA=Beta-lactamase positive, GINA=mcg/m;(mg/L), S*=Predicted susceptible interp, R*=Predicted resistant interp Klepne Antibiotic GINA Dilutn GINA Interp Amikacin <=16 S Ampicillin >16 R Ampicillin/ 16/8 I Sulbactam Aztreonam <=4 S Cefazolin <=2 S Cefepime <=2 S Cefoxitin <=8 S Ceftazidime <=1 S Ceftazidime/ <=8 S Avibactam Ceftriaxone <=1 S Ciprofloxacin <=1 S Ertapenem <=0.5 S Gentamicin <=4 S Levofloxacin <=2 S Meropenem <=1 S Nitrofurantoin >64 R Piperacillin/ <=16 S Tazobactam Tetracycline <=4 S Tigecycline <=2 S Tobramycin <=4 S Trimethoprim/ <=2/38 S Sulfa Performing Locations R1: This test was performed at: [facility], [address] [place] [address], [id number]- , , Normal [facility] Comment on above: Performed By: #### [id number] ####[place] [address] Patient Educationon 07-01-20 Patient Education Obstetrics and Gynecology Overactive Bladder, Adult Overactive bladder refers to a condition in which a person has a sudden need to pass urine. The person may leak urine if he or she cannot get to the bathroom fast enough (urinary incontinence). A person with this condition may also wake up several times in the night to go to the bathroom. Overactive bladder is associated with poor nerve signals between your bladder and your brain. Your bladder may get the signal to empty before it is full. You may also have very sensitive muscles that make your bladder squeeze too soon. These symptoms might interfere with daily work or social activities. What are the causes? This condition may be associated with or caused by: ? Urinary tract infection. ? Infection of nearby tissues, such as the prostate. ? Prostate enlargement. ? Surgery on the uterus or urethra. ? Bladder stones, inflammation, or tumors. ? Drinking too much caffeine or alcohol. ? Certain medicines, especially medicines that get rid of extra fluid in the body (diuretics). ? Muscle or nerve weakness, especially from: ? A spinal cord injury. ? Stroke. ? Multiple sclerosis. ? Parkinson's disease. ? Diabetes. ? Constipation. What increases the risk? You may be at greater risk for overactive bladder if you: ? Are an older adult. ? Smoke. ? Are going through menopause. ? Have prostate problems. ? Have a neurological disease, such as stroke, dementia, Parkinson's disease, or multiple sclerosis (MS). ? Eat or drink things that irritate the bladder. These include alcohol, spicy food, and caffeine. ? Are overweight or obese. What are the signs or symptoms? Symptoms of this condition include: ? Sudden, strong urge to urinate. ? Leaking urine. ? Urinating 8 or more times a day. ? Waking up to urinate 2 or more times a night. How is this diagnosed? Your health care provider may suspect overactive bladder based on your symptoms. He or she will diagnose this condition by: ? A physical exam and medical history. ? Blood or urine tests. You might need bladder or urine tests to help determine what is causing your overactive bladder. You might also need to see a health care provider who specializes in urinary tract problems (urologist). How is this treated? Treatment for overactive bladder depends on the cause of your condition and whether it is mild or severe. You can also make lifestyle changes at home. Options include: ? Bladder training. This may include: ? Learning to control the urge to urinate by following a schedule that directs you to urinate at regular intervals (timed voiding). ? Doing Kegel exercises to strengthen your pelvic floor muscles, which support your bladder. Toning these muscles can help you control urination, even if your bladder muscles are overactive. ? Special devices. This may include: ? Biofeedback, which uses sensors to help you become aware of your body's signals. ? Electrical stimulation, which uses electrodes placed inside the body (implanted) or outside the body. These electrodes send gentle pulses of electricity to strengthen the nerves or muscles that control the bladder. ? Women may use a plastic device that fits into the vagina and supports the bladder (pessary). ? Medicines. ? Antibiotics to treat bladder infection. ? Antispasmodics to stop the bladder from releasing urine at the wrong time. ? Tricyclic antidepressants to relax bladder muscles. ? Injections of botulinum toxin type A directly into the bladder tissue to relax bladder muscles. ? Lifestyle changes. This may include: ? Weight loss. Talk to your health care provider about weight loss methods that would work best for you. ? Diet changes. This may include reducing how much alcohol and caffeine you consume, or drinking fluids at different times of the day. ? Not smoking. Do not use any products that contain nicotine or tobacco, such as cigarettes and e-cigarettes. If you need help quitting, ask your health care provider. ? Surgery. ? A device may be implanted to help manage the nerve signals that control urination. ? An electrode may be implanted to stimulate electrical signals in the bladder. ? A procedure may be done to change the shape of the bladder. This is done only in very severe cases. Follow these instructions at home: Lifestyle ? Make any diet or lifestyle changes that are recommended by your health care provider. These may include: ? Drinking less fluid or drinking fluids at different times of the day. ? Cutting down on caffeine or alcohol. ? Doing Kegel exercises. ? Losing weight if needed. ? Eating a healthy and balanced diet to prevent constipation. This may include: ? Eating foods that are high in fiber, such as fresh fruits and vegetables, whole grains, and beans. ? Limiting foods that are high in fat and processed sugars, such as fried and sweet foods. General instructions ? Take ove (more content not included)... Normal [facility] Pre-Authorization for Medica l Treatmenton 07-01-2021 Pre-Authorization for Medical Treatment [id number]: 127 Normal [facility] Urology Office/Clinic Noteon 07-01-2021 Urology Office/Clinic Note Chief Complaint This is a 25 year old female lower motor cerebral palsy, acute cysititis without hematuria and feeling of incomplete baldder emptying. HPI Staff Pt. here to review UDS, U&S and CT. CT AP noncontrast done 06/30/21. Pt. states yesterday she was feeling like she was floating when she would stand and her heart rate was up to 130's. Pt. states the last time she felt this way was when she had a kidney infection. Pt. states two nights ago she was getting up several times. PVR 54mL. Pain with urination:No Blood in urine:No Incomplete bladder emptying:No Frequency:Pt. states every hour Urgency:Moderate Nocturia:Pt. states the other night was getting up 10x's Stream:Pt. states good stream. Pt. states a few sec later she will have to urinate more. Leaking before getting to the restroom:Occasionally Urinary incontinence without sensory awareness:No Temporarily unable to restrain urination with body movement:Mild pt. states if she sneezes Wearing pad/Depends:Yes Flank/Back pain:No Abdominal pain:Mild abdominal pain History of Present Illness Reviewed CT, C&S, and Urodynamics. There have been no associated fever, chills, flank pain or blood in the urine. Pt. denies any pain/burning with urination at this time. I have reviewed and verified the staff HPI to be accurate for this encounter. I have reviewed the previous health record information and history for this patient from Dr. Wheeler. Review of Systems ROS - Provider Constitutional: denies weight loss, denies hot flashes. Eyes: denies eye problems. Gastrointestinal: denies nausea, denies vomiting. Cardiovascular: denies chest pain or angina. Integumentary: no dryness Musculoskeletal: -baseline ambulates with assistance, wheelchair for long distance ENMT: denies otolaryngeal symptoms. Respiratory: no shortness of breath. Heme/Lymph: denies easy bleeding tendency, denies easy bruising tendency. Psychiatric: no confusion, no anxiety. Genitourinary: See HPI Physical Exam Vitals & Measurements HT: 157.0 cm HT: 157 cm WT: 100.0 kg WT: 100 kg BMI: 40.57 General Appearance: alert , no acute distress, well nourished, well developed female. Genitourinary: bladder nonpalpable, no flank pain. Wheelchair Assessment/Plan Pt. currently resides in [place], when she is back in [place] she will follow up, scheduled for 3 months to ensure not lost to followup, pt can call to reschedule for when in town. 1. Feeling of incomplete bladder emptying (R39.14: Feeling of incomplete bladder emptying) PVR today - 54ml. Urodynamics done 06/29/2021 - unstable detrusor overactivity with leakage (PDet 116 cmH20 at volume 36mL), low capacity bladder 113mL, compliant, high pressure/low flow with voiding but improving emptying with PVR 50mL. Discussed importance of timed voiding. - Tamsulosin 0.4mg daily to assist with bladder neck relaxation. This is the lowest priority medication but is still recommended to try. 2. OAB (overactive bladder) (N32.81: Overactive bladder) Urodynamics 06/29/2021 with DO/leakage as above. CT scan without hydro but does have trabeculated bladder. Pt. going every hour -stopped taking oxybutynin. Moderate urgency. 1. Importance of oxybutynin 10 mg daily. Can increase to BID if symptoms not controlled 2. Discussed Botox to reduce medication burden, can be done under local or MAC. Will need to be repeated every 6 months to 1 year depending on how long its effects last. Pt will think about it and call if she decides to proceed 3. Will refer for pelvic floor therapy to assist with bladder coordination. 3. UTI (urinary tract infection) (N30.00: Acute cystitis without hematuria) Hx of febrile UTI. Two infections this year (late March & Apr.). UACS 07/01/2021 POS for Klebsiella pneumoniae, resistant to ampicillin and nitrofurantoin. CT scan 06/30/2021, report not accessible today. Image reviewed and negative for stones or hydro, positive for trabeculated bladder, significant stool burden noted -Will start Bactrim D.S. 800-160mg BID for one week, starting today. Pt. needs to visit the ER if she would have a fever or if her symptoms are not improving. Negative for fever today. Increase fluid intake. Needs to take anti cholinergics/bladder relaxation medications to prevent pyelonephritis and renal damage -Bowel regimen again discussed: Miralax BID if no result with 1 packet. Mag Citrate if no results. Once having good BMs or liquid, back down to miralax daily, if still loose then colace/senna daily. Increase water and fiber. -OK for flu shot after UTI treated 4. 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 Uses crutches to walk but currently in wheelchair due to low back fracture. Active, [place]. Bowel and bladder health crucial for pt. Discussed the importance of this. -Follow up with neurologist as scheduled. Follow-up With When Contact Information Fatuma Wheeler MD (more content not included)... [facility] Comment on above: Result Comment: Elec tronically Signed By: Fatuma Wheeler MD\.br\Date and Time Signed: 07/01/21 12:58 EST\.br\Electronically Co-Signed By: Manasa Casiano\.br\Date and Time Co-Signed: 07/01/21 12:46 EST Consent for Treatmenton 06-09 Consent for Treatment [id number]: 127 [facility] Formson 06-29-2021 Forms [id number]: 127 [facility] Lab Reportson 06-29-2021 Lab Reports [id number] :127 [facility] Physician Referralon 021 Physician Referral [id number] :127 [facility] Ambulatory Clinical Summaryo n 06-26-2021 Ambulatory Clinical Summary {[id number] }CD:[id number] [facility] Patient Educationon 06-26-20 21 Patient Education Obstetrics and Gynecology Urinary Tract Infection, Adult A urinary tract infection (UTI) is an infection of any part of the urinary tract. The urinary tract includes the kidneys, ureters, bladder, and urethra. These organs make, store, and get rid of urine in the body. Your health care provider may use other names to describe the infection. An upper UTI affects the ureters and kidneys (pyelonephritis). A lower UTI affects the bladder (cystitis) and urethra (urethritis). What are the causes? Most urinary tract infections are caused by bacteria in your genital area, around the entrance to your urinary tract (urethra). These bacteria grow and cause inflammation of your urinary tract. What increases the risk? You are more likely to develop this condition if: ? You have a urinary catheter that stays in place (indwelling). ? You are not able to control when you urinate or have a bowel movement (you have incontinence). ? You are female and you: ? Use a spermicide or diaphragm for control. ? Have low estrogen levels. ? Are . ? You have certain genes that increase your risk (genetics). ? You are sexually active. ? You take antibiotic medicines. ? You have a condition that causes your flow of urine to slow down, such as: ? An enlarged prostate, if you are male. ? Blockage in your urethra (stricture). ? A kidney stone. ? A nerve condition that affects your bladder control (neurogenic bladder). ? Not getting enough to drink, or not urinating often. ? You have certain medical conditions, such as: ? Diabetes. ? A weak disease-fighting system (immunesystem). ? Sickle cell disease. ? Gout. ? Spinal cord injury. What are the signs or symptoms? Symptoms of this condition include: ? Needing to urinate right away (urgently). ? Frequent urination or passing small amounts of urine frequently. ? Pain or burning with urination. ? Blood in the urine. ? Urine that smells bad or unusual. ? Trouble urinating. ? Cloudy urine. ? Vaginal discharge, if you are female. ? Pain in the abdomen or the lower back. You may also have: ? Vomiting or a decreased appetite. ? Confusion. ? Irritability or tiredness. ? A fever. ? Diarrhea. The first symptom in older adults may be confusion. In some cases, they may not have any symptoms until the infection has worsened. How is this diagnosed? This condition is diagnosed based on your medical history and a physical exam. You may also have other tests, including: ? Urine tests. ? Blood tests. ? Tests for sexually transmitted infections (STIs). If you have had more than one UTI, a cystoscopy or imaging studies may be done to determine the cause of the infections. How is this treated? Treatment for this condition includes: ? Antibiotic medicine. ? Hntr-cst-vcoxhrf medicines to treat discomfort. ? Drinking enough water to stay hydrated. If you have frequent infections or have other conditions such as a kidney stone, you may need to see a health care provider who specializes in the urinary tract (urologist). In rare cases, urinary tract infections can cause sepsis. Sepsis is a life-threatening condition that occurs when the body responds to an infection. Sepsis is treated in the hospital with IV antibiotics, fluids, and other medicines. Follow these instructions at home: Medicines ? Take srdx-han-akpzlwd and prescription medicines only as told by your health care provider. ? If you were prescribed an antibiotic medicine, take it as told by your health care provider. Do not stop using the antibiotic even if you start to feel better. General instructions ? Make sure you: ? Empty your bladder often and completely. Do not hold urine for long periods of time. ? Empty your bladder after sex. ? Wipe from front to back after a bowel movement if you are female. Use each tissue one time when you wipe. ? Drink enough fluid to keep your urine pale yellow. ? Keep all follow-up visits as told by your health care provider. This is important. Contact a health care provider if: ? Your symptoms do not get better after 1?2 days. ? Your symptoms go away and then return. Get help right away if you have: ? Severe pain in your back or your lower abdomen. ? A fever. ? Nausea or vomiting. Summary ? A urinary tract infection (UTI) is an infection of any part of the urinary tract, which includes the kidneys, ureters, bladder, and urethra. ? Most urinary tract infections are caused by bacteria in your genital area, around the entrance to your urinary tract (urethra). ? Treatment for this condition often includes antibiotic medicines. ? If you were prescribed an antibiotic medicine, take it as told by your health care provider. Do not stop using the antibiotic even if you start to feel better. ? Keep all follow-up visits as told by your health care provider. This is important. This in (more content not included)... Normal [facility] Urology Office/Clinic Noteon 06-26-2021 Urology Office/Clinic Note Chief Complaint New Pt. Dr. Chambers referred Pt. HPI Staff Dr. Chambers referred Pt. for frequency. pt. states she had a kidney infection 2 months ago. Pt. states she had a UTI about a month ago. PT has the sensation to urinate but produce any urine. Pain with urination:No Blood in urine:No Incomplete bladder emptying:Occasionally Frequency:Pt. states occasionally will have to urinate sooner the 2 hours. Urgency:Moderate Nocturia:1-2x's Urination requires straining:No Stream:good stream Stream starts and stops:Occasionally Leaking before getting to the restroom:Moderate Urinary incontinence without sensory awareness:No Temporarily unable to restrain urination with body movement:Mild pt. states when she sneezes Wearing pad/Depends:Yes 3-4x a day. Pt. states occasionally the pad will be very wet. Urine odor:Occasionally Flank/Back pain:No Abdominal pain:No History of Present Illness Reviewed UA and referral. There have been no associated fever, chills, flank pain or blood in the urine. Pt. denies any pain/burning with urination at this time. Review of Systems ROS - Provider Constitutional: denies weight loss, denies hot flashes. Eyes: denies eye problems. Gastrointestinal: denies nausea, denies vomiting. Cardiovascular: denies chest pain or angina. Integumentary: no dryness Musculoskeletal: denies musculoskeletal symptoms. ENMT: denies otolaryngeal symptoms. Respiratory: no shortness of breath. Heme/Lymph: denies easy bleeding tendency, denies easy bruising tendency. Psychiatric: no confusion, no anxiety. Genitourinary: See HPI. Physical Exam Vitals & Measurements HR: 93(Peripheral) RR: 16 BP: 145/86 HT: 157 cm HT: 157.0 cm WT: 100 kg WT: 100.0 kg BMI: 40.57 General Appearance: alert , no acute distress, well nourished, well developed female. Head: normocephalic . Eyes: normal orbit and globe. ENMT: normal examination of external ears. Chest: Lungs CTA, respirations non labored . Cardiovascular: regular rate and rhythm. Abdomen: soft, non distended, no tenderness, no mass or organomegaly, no hernia. Genitourinary: bladder nonpalpable, no flank tenderness. Lymph Nodes: unremarkable palpation of the cervical area. Skin: warm, dry, no bruising. Psychiatric: cooperative, affect appropriate for age, normal judgement, euthymic mood. Assessment/Plan 1. Other neuromuscular dysfunction of bladder (N31.8: Other neuromuscular dysfunction of bladder) Cerebral palsy. Urinary sxs of frequency, urgency, and urge incontinence. Pads changed 3-4x/day. Currently taking Oxybutynin 5mg bid - dc prior med and Will increase Oxybutynin to 10mg ER qd and will also start pt. on Flomax 0.4mg qd. Discussed the medication side effects, and the patient will monitor closely for these, as well as for symptom improvement. If severe side effects occur, the medication should be stopped and the office notified. Scripts sent to [facility] in [place]. Recommended pt. to maintain a regular bowel movement. Take Colace or Miralax. Increase fiber intake. Education provided. Timed voiding encouraged -UDS to eval current bladder function/pressures Ordered: Office Visit Level 5 New 57365 2. Acute cystitis without hematuria (N30.00: Acute cystitis without hematuria) Hx of febrile UTI. Two infections this year(late march & apr.). Last UCx Klebsiella R- ampicillin and nitrofurantoin. Usual sxs of fever, chills, and low appetite. UA today - large blood, pos. nitrate, and small leuks. No infection sxs at this time. Unable to send UA today for culture due to insufficient amount of urine. Unable to cath pt. in office today. Will have pt. bring in a UCx sample on Tuesday morning and will give pt. ABX if sxs are to arise over the weekend. Bactrim DS bid for 3 days sent to [facility] in [place]. Pt. to start timed voids q2-3hr during waking hours whether the urge to void is present or not. Ordering CT AP w/o contrast given hx of febrile recurrent UTIs and klebsiella UTI. Ordered: Office Visit Level 5 New 08710 3. Feeling of incomplete bladder emptying (R39.14: Feeling of incomplete bladder emptying) PVR today - 172ml. Scheduling Urodynamics to assess current bladder function. Start tamsulosin 0.4 mg daily to assist with bladder emptying Ordered: Measure Post Void residual urine and/or bladder capacity by US- non-imaging [id number] Measure Post Void residual urine and/or bladder capacity by US- non-imaging [id number] Office Visit Level 5 New 54548 Urology Procedure Order 4. 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 Uses crutches to walk but currently in wheelchair due to low back fracture. Active, [place] Discussed importance of bowel and bladder health and need for baseline's testing as well as monitoring. Ordered: Office Visit Level 5 New 26658 Orders: oxybutynin, 10 mg = 1 tab(s), Oral, Daily, # 30 tab(s), Refills(s) 5, (more content not included)... Normal [facility] Comment on above: Result Comment: Elec tronically Signed By: Liam DÍAZ, Fatuma Hernandez\.br\Date and Time Signed: 06/26/21 16:16 EST\.br\Electronically Co-Signed By: Arianna Haney MA\.br\Date and Time Co-Signed: 06/26/21 16:05 EST Complete Blood Count Auto Di ffon 05-21-2021 Basophils (Bld) [#/Vol] 0.1 10*3/uL 0.0-0.2 [employer] Other Basophils/100 WBC (Bld) 0.9 % . N [employer] Other Eosinophils (Bld) [#/Vol] 0.3 10*3/uL 0.0-0.45 17[employer] Other Eosinophils/100 WBC (Bld) 4.4 % . [employer] Other Erythrocyte distribution width (RBC) [Ratio] 15.2 % 11.9-15.3 [employer] Other Hematocrit (Bld) [Volume fraction] 39.8 % 34.0-46.4 [employer] Other Hemoglobin (Bld) [Mass/Vol] 13.4 g/dL 11.8-15.4 [employer] Other Lymphocytes (Bld) [#/Vol] 1.7 10*3/uL 1.00-4.8 [employer] Other Lymphocytes/100 WBC (Bld) 28.2 % . [employer] Other MCH (RBC) [Entitic mass] 27.7 pg 24.7-34.3 [employer] Other MCH (RBC) [Entitic mass] 33.8 pg 32.0-35.0 17[employer] Other MCV (RBC) [Entitic vol] 82.0 fL 80-100 [facility] [employer] Other Monocytes (Bld) [#/Vol] 0.5 10*3/uL 0.0-0.8 [place] [employer] Other Monocytes/100 WBC (Bld) 7.8 % . [facility] [employer] Other Neutrophils (Bld) [#/Vol] 3.5 10*3/uL 1.8-7.7 [employer] Other Neutrophils/100 WBC (Bld) 58.7 % . [employer] Other Platelet mean volume (Bld) [Entitic vol] 9.0 fL 6.3-10.7 [employer] Other Platelets (Bld) [#/Vol] 315 10*3/uL 150-450 [employer] Other RBC (Bld) [#/Vol] 4.85 10*6/uL 3.60-5.00 [employer] Other WBC (Bld) [#/Vol] 6.0 10*3/uL 3.8-11.6 [employer] Other Complete Blood Count Auto Diff 6.0 4.5-11.0 [employer] Other Complete Blood Count Auto Diff 0.1 0-0.5 17[employer] Other Comprehensive Metabolic Pane brennon 05-21-2021 Albumin [Mass/Vol] 4.1 g/dL 3.2-5.5 [employer] Other Albumin/Globulin [Mass ratio] 1.5 {ratio} 17[employer] Other ALP [Catalytic activity/Vol] 68 U/L 32-92 [facility] [employer] Other ALT [Catalytic activity/Vol] 34 U/L 10-60 [facility] [employer] Other AST [Catalytic activity/Vol] 26 U/L 10-42 [facility] [place] [employer] Other Bilirubin [Mass/Vol] 0.6 mg/dL 0.3-1.2 [facility] [employer] Other Calcium [Mass/Vol] 9.3 mg/dL 8.2-10.2 [facility] [employer] Other Chloride [Moles/Vol] 106 mmol/L 95-114 [facility] [employer] Other CO2 [Moles/Vol] 20.1 mmol/L 22.0-30.0 [facility] [employer] Other Creatinine [Mass/Vol] 0.81 mg/dL 0.44-1.03 [facility] [employer] Other Glucose [Mass/Vol] 94 mg/dL 70-100 [facility] [employer] Other Potassium [Moles/Vol] 3.9 mmol/L 3.5-5.1 [facility] [employer] Other Protein [Mass/Vol] 6.8 g/dL 6.1-7.9 [facility] [employer] Other Sodium [Moles/Vol] 136 mmol/L 136-146 [facility] [employer] Other Urea nitrogen [Mass/Vol] 10 mg/dL 9-23 [facility] [employer] Other Comprehensive Metabolic Panel > 60 [facility] [employer] Other Comprehensive Metabolic Panel 2.7 [facility] [employer] Other Ferritinon 05-21-2021 Ferritin [Mass/Vol] 15.0 ng/mL 11-306.8 [facility] [employer] Other Free T4 (Free Thyroxine)on 1 Free T4 [Mass/Vol] 0.93 ng/dL 0.61-1.12 [facility] [employer] Other Iron and TIBC Profileon 05-08 Iron [Mass/Vol] 144 ug/dL 40-150 [facility] [employer] Other Iron and TIBC Profile 36.0 20-50 [facility] [employer] Other Lipid Panelon 05-21-2021 Cholesterol [Mass/Vol] 182 mg/dL 140-200 [facility] [facility] Cholesterol in HDL [Mass/Vol] 46 mg/dL 35-85 [facility] [employer] Other Cholesterol in LDL Elph Qn 122 0-100 [facility] [employer] Other Cholesterol.total/Vivi sterol in HDL [Mass ratio] 4.0 {ratio} <5.0 [facility] [employer] Other Lipid Panel 72 35-149 [facility] [employer] Other Lipid Panel 14 [facility] [employer] Other Thyroid Stimulating Hormoneo n 05-21-2021 TSH Qn 3.23 m[IU]/L 0.45-5.33 [facility] [employer] Other Vitamin B12on 05-21-2021 Cobalamin (Vitamin B12) [Mass/Vol] 209 pg/mL 180-914 [facility] [employer] Other Vitamin D 25 Hydroxy Totalon 05-21-2021 Vitamin D 25 Hydroxy Total 16.6 30-100 [employer] [facility] [employer] Other Urine Cultureon 05-15-2021 Urine Culture >100,000 [employer] [facility] [employer] Other Urine Culture <16 [employer] Other Urine Culture >16 [employer] Other Urine Culture <4 [employer] Other Urine Culture <2 [employer] Other Urine Culture <1 [employer] Other Urine Culture <0.5 [employer] Other Urine Culture >64 [employer] Other Urine Culture <2/38 [employer] Other XR FINGER - LEFTon 9 XR FINGER - LEFT REASON FOR EXAM: AP/Lateral/Oblique for finger pain - direct contact from softball yesterday - pain, discoloration, and swelling ;Pain of finger of left hand TECHNIQUE: 3 views with attention to the left third digit. COMPARISON: None. FINDINGS: BONES: There is a questionable nondisplaced tuft fracture. No other focal bony abnormality seen. Normal mineralization. JOINTS: Normal alignment. SOFT TISSUES: Normal. No radio-opaque foreign body. IMPRESSION: Question nondisplaced tuft fracture third distal phalanx. Interpreted by: Lucia Amor MD Signed by: Lucia Amor MD on 06/26/2019 11:33 AM Normal [facility] Culture, Urine Aon 9 Culture, Urine A Specimen description : Clean catch midstream urine Special requests: None Culture results: >100,000 cfu/mL Escherichia coli --> ABNORMAL Report status: Final [id number] ----- ----- ORGANISM: >100,000 cfu/mL Escherichia coli --> ABNORMAL ----- [employer] GINA ANTIBIOTIC INTERPRETATION STATUS Ampicillin >=32 Resistant F Piperacillin/Tazobactam <=4 Susceptible F Cefazolin <=4 Susceptible F - Cefazolin susceptibility test results may be used to predict susceptibility to cefdinir, cefuroxime axetil, and cephalexin when used for therapy of uncomplicated UTIs due to E. coli, K. pneumonia, and P. mirabilis. Ceftriaxone <=1 Susceptible F Gentamicin <=1 Susceptible F Trimethoprim/sulfamethox azole >=16/304 Resistant F Nitrofurantoin 32 Susceptible F Ciprofloxacin 0.5 Susceptible F - If Ciprofloxacin is susceptible (S), Ciprofloxacin can be considered for treatment of complicated UTIs/pyelonephritis due to multi-resistant Gram-negative organisms in children 1 year of age and older. Cefpodoxime 1 Susceptible F Abnormal [facility] Comment on above: Performed By: #### U RCA #### Performed at [facility], [address] [place] [address] 04-03-2019 Anion gap [Moles/Vol] 17 mmol/L 10 - 2 0 mmol/L [facility] Calcium [Mass/Vol] 9.2 mg/dL 8.4 - 10. 2 mg/dL [facility] Chloride [Moles/Vol] 102 mmol/L 98 - 10 8 mmol/L [facility] Creatinine [Mass/Vol] 0.62 mg/dL 0.4 - 1.1 mg/dL [facility] GFR/1.73 sq M predicted among non-blacks MDRD (S/P/Bld) [Vol rate/Area] The eGFR should be used for monitoring renal function only and not for medication dosing. [facility] GFR/1.73 sq M.predicted CKD-EPI (S/P/Bld) [Vol rate/Area] 149 >=60 mL/min/1.7 3 m2 [facility] GFR/1.73 sq M.predicted CKD-EPI (S/P/Bld) [Vol rate/Area] 129 >=60 mL/min/1.7 3 m2 [facility] Glucose [Mass/Vol] 114 mg/dL High 65 - 99 mg/dL [facility] HCO3 [Moles/Vol] 24 mmol/L 21 - 32 mmol/L [facility] Interpretation and review of laboratory results Abnormal [facility] Potassium [Moles/Vol] 3.9 mmol/L 3.5 - 5.1 mmol/L [facility] Sodium [Moles/Vol] 139 mmol/L 135 - 145 mmol/L [facility] Urea nitrogen [Mass/Vol] 12 mg/dL 8 - 25 mg/dL [facility] Urea nitrogen/Creatinine [Mass ratio] 19.4 mg/mg [facility] CBC WITH AUTO DIFFERENTIALon 04-03-2019 Basophils (Bld) [#/Vol] 0.06 10*3/uL [facility] Basophils/100 WBC (Bld) 0.5 % [facility] Eosinophils (Bld) [#/Vol] 0.06 10*3/uL [facility] Eosinophils/100 WBC (Bld) 0.5 % [facility] Erythrocyte distribution width (RBC) [Entitic vol] 13.6 % 11.6 - 14.8 % [facility] Hematocrit (Bld) [Volume fraction] 38.0 % 36 - 46 % [facility] Hemoglobin (Bld) [Mass/Vol] 12.0 g/dL 12 - 16 g/dL [facility] Immature granulocytes (Bld) [#/Vol] 0.05 10*3/uL [facility] Immature granulocytes/100 WBC (Bld) 0.40 % [facility] Comment on above: The IG parameter is the percentage of metamyelocytes, myelocytes, and promyelocytes. Interpretation and review of laboratory results Abnormal [facility] Lymphocytes (Bld) [#/Vol] 2.21 10*3/uL [facility] Lymphocytes/100 WBC (Bld) 19.8 % [facility] MCH (RBC) [Entitic mass] 28.2 pg 26 - 34 pg [facility] MCHC (RBC) [Mass/Vol] 31.6 g/dL 31 - 3 7 g/dL [facility] MCV (RBC) [Entitic vol] 89.4 fL 80 - 100 fL [facility] Monocytes (Bld) [#/Vol] 0.80 10*3/uL [facility] Monocytes/100 WBC (Bld) 7.2 % [facility] Neutrophils (Bld) [#/Vol] 7.98 10*3/uL High [facility] Neutrophils/100 WBC (Bld) 71.6 % [facility] Nucleated RBC (Bld) [#/Vol] 0.00 10*3/uL [facility] Nucleated RBC/100 WBC (Bld) [Ratio] 0.0 % [facility] Platelet mean volume (Bld) [Entitic vol] 9.9 fL 9 - 15.5 fL [facility] Platelets (Bld) [#/Vol] 318 10*3/uL [facility] RBC (Bld) [#/Vol] 4.25 10*6/uL [facility] WBC (Bld) [#/Vol] 11.16 10*3/uL [facility] CT KIDNEY STONEon 04-03-2019 CT KIDNEY STONE EXAMINATION: STONE PROTOCOL CT OF THE ABDOMEN AND PELVIS 04/03/2019 TECHNIQUE: CT of the abdomen and pelvis was performed without the administration of intravenous contrast. Multiplanar reformatted images are provided for review. Dose modulation, iterative reconstruction, and/or weight based adjustment of the mA/kV was utilized to reduce the radiation dose to as low as reasonably achievable. COMPARISON: None. HISTORY: ORDERING SYSTEM PROVIDED HISTORY: llq abd pain, hx stones, nitrite +uti; TECHNOLOGIST PROVIDED HISTORY: Illness/Other Acuity: Acute Reason for Exam: llq abd pain, hx stones, nitrite +uti Type of Encounter: Initial Additional signs and symptoms: llq abd pain, hx stones, nitrite +uti FINDINGS: LOWER CHEST: Visualized portion of the lower chest demonstrates no acute abnormality. KIDNEYS AND URINARY TRACT: No renal calculi are identified. There is no evidence for hydronephrosis. The ureters are of normal course and caliber. ORGANS: Limited evaluation the absence of IV contrast. There is mild hepatic steatosis. Portion of the dome of the liver is not imaged. Spleen, pancreas, adrenal glands and gallbladder show no significant abnormalities. GI/BOWEL: No bowel obstruction. No evidence of acute appendicitis. PELVIS: The bladder and pelvic organs are unremarkable. PERITONEUM/RETROPERITONE UM: No lymphadenopathy is noted. No free intraperitoneal fluid. BONES/SOFT TISSUES: The osseous structures demonstrate no acute abnormality. IMPRESSION: 1. No urinary tract calculi. 2. No acute infective inflammatory process. 3. Hepatic steatosis. Workstation ID: [id number] Dictated by: LEELA PUTNAM on TueApr 03, 2019 6:54:41 AM EDT Transcribed by: LEELA PUTNAM on TueApr 03, 2019 6:54:41 AM EDT Finalized by: LEELA PUTNAM on TueApr 03, 2019 6:54:41 AM EDT [facility] Comment on above: Order Comment: Injur y/Trauma or Illness?:Illness/Other How long have you had these symptoms (acute/chronic)?:Acute Reason for exam?:llq abd pain, hx stones, nitrite +uti Type of Exam?:Initial Additional signs and symptoms?:llq abd pain, hx stones, nitrite +uti 1. No urinary tract calculi. 2. No acute infective inflammatory process. 3. Hepatic steatosis. Workstation ID: [id number] [facility] EXAMINATION: STONE PROTOCOL CT OF THE ABDOMEN AND PELVIS 04/03/2019 TECHNIQUE: CT of the abdomen and pelvis was performed without the administration of intravenous contrast. Multiplanar reformatted images are provided for review. Dose modulation, iterative reconstruction, and/or weight based adjustment of the mA/kV was utilized to reduce the radiation dose to as low as reasonably achievable. COMPARISON: None. HISTORY: ORDERING SYSTEM PROVIDED HISTORY: llq abd pain, hx stones, nitrite +uti; TECHNOLOGIST PROVIDED HISTORY: Illness/Other Acuity: Acute Reason for Exam: llq abd pain, hx stones, nitrite +uti Type of Encounter: Initial Additional signs and symptoms: llq abd pain, hx stones, nitrite +uti FINDINGS: LOWER CHEST: Visualized portion of the lower chest demonstrates no acute abnormality. KIDNEYS AND URINARY TRACT: No renal calculi are identified. There is no evidence for hydronephrosis. The ureters are of normal course and caliber. ORGANS: Limited evaluation the absence of IV contrast. There is mild hepatic steatosis. Portion of the dome of the liver is not imaged. Spleen, pancreas, adrenal glands and gallbladder show no significant abnormalities. GI/BOWEL: No bowel obstruction. No evidence of acute appendicitis. PELVIS: The bladder and pelvic organs are unremarkable. PERITONEUM/RETROPERITONE UM: No lymphadenopathy is noted. No free intraperitoneal fluid. BONES/SOFT TISSUES: The osseous structures demonstrate no acute abnormality. [facility], Rad In Fu ji Speechq - 04/03/2019 6:57 AM EDT EXAMINATION: STONE PROTOCOL CT OF THE ABDOMEN AND PELVIS 04/03/2019 TECHNIQUE: CT of the abdomen and pelvis was performed without the administration of intravenous contrast. Multiplanar reformatted images are provided for review. Dose modulation, iterative reconstruction, and/or weight based adjustment of the mA/kV was utilized to reduce the radiation dose to as low as reasonably achievable. COMPARISON: None. HISTORY: ORDERING SYSTEM PROVIDED HISTORY: llq abd pain, hx stones, nitrite +uti; TECHNOLOGIST PROVIDED HISTORY: Illness/Other Acuity: Acute Reason for Exam: llq abd pain, hx stones, nitrite +uti Type of Encounter: Initial Additional signs and symptoms: llq abd pain, hx stones, nitrite +uti FINDINGS: LOWER CHEST: Visualized portion of the lower chest demonstrates no acute abnormality. KIDNEYS AND URINARY TRACT: No renal calculi are identified. There is no evidence for hydronephrosis. The ureters are of normal course and caliber. ORGANS: Limited evaluation the absence of IV contrast. There is mild hepatic steatosis. Portion of the dome of the liver is not imaged. Spleen, pancreas, adrenal glands and gallbladder show no significant abnormalities. GI/BOWEL: No bowel obstruction. No evidence of acute appendicitis. PELVIS: The bladder and pelvic organs are unremarkable. PERITONEUM/RETROPERITONE UM: No lymphadenopathy is noted. No free intraperitoneal fluid. BONES/SOFT TISSUES: The osseous structures demonstrate no acute abnormality. IMPRESSION: 1. No urinary tract calculi. 2. No acute infective inflammatory process. 3. Hepatic steatosis. Workstation ID: [id number] [facility] Hepatic Function Panel (LFT) on 04-03-2019 Albumin [Mass/Vol] 4.3 g/dL 3.2 - 5.2 g/dL [facility] ALP [Catalytic activity/Vol] 96 U/L 40 - 140 U/L [facility] ALT [Catalytic activity/Vol] 15 U/L 0 - 40 U/L [facility] AST [Catalytic activity/Vol] 19 U/L 0 - 45 U/L [facility] Bilirubin [Mass/Vol] 0.5 mg/dL 0 - 1.3 mg/dL [facility] Bilirubin.conjugated [Mass/Vol] 0.1 mg/dL 0 - 0.4 mg/dL [facility] Protein [Mass/Vol] 6.9 g/dL 6 - 8 g/dL [facility] alth Lipaseon 04-03-2019 Lipase [Catalytic activity/Vol] 29 U/L 15 - 65 U/L [facility] Otheron 04-03-2019 Interpretation and review of laboratory results Normal [facility] POC Urine Pregnancyon 2018 HCG ( test) Ql (U) Negative Negative [facility] Internal Control Pass [facility] Interpretation and review of laboratory results Normal [facility] Specific gravity (U) [Rel density] [facility] POCT HCG, Urine Qualitativeo n 04-03-2019 Beta HCG ( test) Ql (U) Negative Normal NEG [facility] Comment: First morning urine is the specimen of choice for urine test. False negative results can occur when random urine specimens are tested. A serum test is recommended if results do not correlate with the patient's clinical condition. Normal [facility] POCT Urinalysis, Strip Onlyo n 04-03-2019 Appearance (U) Clear Normal [facility] Bilirubin, Urine Strip Negative Normal NEG [facility] Glucose, Urine Strip Negative Normal [facility]G [facility] Ketone, Urine Strip Negative Normal NEG [facility] Leukocyte esterase, Ur Strip Negative Normal NEG [facility] Nitrite, Urine Strip Positive Abnormal NEG [facility] Occult blood, Urine Strip Large Abnormal NEG [facility] pH, Urine Strip 6.0 Normal 4.5-8.0 [facility] Protein (U) [Mass/Vol] 30 mg/dL Abnormal NEG [facility] Specific [place], Urine Strip 1.025 Normal 1.007-1.03 0 [facility] Specimen Color Yellow Normal [facility] Urobilinogen Qn (U) 0.2 Ion U/dL Normal <1.1 [facility] URINALYSISon 04-03-2019 Bacteria Auto Ql (U) Rare Abnormal None Se en /hpf [facility] Bilirubin Ql (U) Negative Negative [facility] Calcium oxalate crystals Computer assisted (U) [#/Area] Rare Abnormal None Seen /hpf [facility] Clarity Refractometry automated (U) Hazy Abnormal Clear [facility] Color (U) Yellow Colorless, Yellow [facility] Epithelial cells.squamous Auto (Urine sed) [#/Area] 2 [facility] Glucose Auto test strip (U) [Mass/Vol] Negative Negative mg/dL [facility] Hemoglobin Auto test strip Ql (U) Large Abnormal Negative [facility] Interpretation and review of laboratory results Abnormal [facility] Ketones (U) [Mass/Vol] Negative Negat sami mg/dL [facility] Leukocyte clumps Auto (Urine sed) [#/Area] Few Abnormal None Seen /hpf [facility] Leukocyte esterase Auto test strip Ql (U) Moderate Abnormal Negative [facility] Mucus Auto (Urine sed) [#/Area] Rare None Seen, Rare /lpf [facility] Nitrite Auto test strip Ql (U) Positive Abnormal Negative [facility] pH (U) 5.0 [pH] [facility] Protein (U) [Mass/Vol] 30 Abnormal Negat sami mg/dL [facility] Comment on above: False positive resul ts may occur in urines with large amounts of hemoglobin, pH greater than 8.0, contrast medium, or disinfectants including ammonium compounds. RBC Auto (Urine sed) [#/Area] 40 High [facility] Specific gravity (U) [Rel density] 1.026 High [facility] Urobilinogen (U) [Mass/Vol] <2.0 <2.0 mg/dL [facility] WBC Auto (Urine sed) [#/Area] 83 High [facility] Microscopic examinat ion is performed on all urinalysis samples and only positive findings are reported. The test for blood on the chemical analytic portion of urinalysis may also be positive due to hemoglobinuria and myoglobinuria and if red blood cells are present they are quantified by microscopic examination. [facility] XR HAND 3 VIEWS - RIGHTon XR HAND 3 VIEWS - RIGHT REASON FOR EXAM: Hit in the right hand with a softball a week ago and it is still swollen and she cannot grasp anything TECHNIQUE: XR HAND 3 VIEWS - RIGHT COMPARISON: None. FINDINGS: BONES: No fracture. Normal mineralization. JOINTS: Normal alignment. SOFT TISSUES: Medial soft tissue swelling. No radio-opaque foreign body. IMPRESSION: Soft tissue swelling. No fracture or malalignment. Interpreted by: Lucia Amor MD Signed by: Lucia Amor MD on 10/11/2018 11:27 AM Normal [facility] Rehab Occupational Evalon Rehab Occupational Eval MR#: [id number] [facility] ( ) INPATIENT (x) OUTPATIENT Patient Name: Vijaya Tinsley Date of : 1995 Referring Physician: Dillan Adler M.D. Dictating Therapist: Tina Maxwell OT Evaluation Date: 08/21/2018 Page 1 of 3 OCCUPATIONAL THERAPY EVALUATION REFERRING PHYSICIAN: Dr. 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 HISTORY OF PRESENT ILLNESS: Ms. Tinsley is a 22 year old female with a diagnosis of diplegic cerebral palsy who presents to the [facility] interdisciplinary outpatient wheelchair clinic with the goal of being evaluated for a replacement manual ultra lightweight (K0005) w/c. She is currently utilizing a borrowed K0005 w/c that is not customized to fit her needs. She is a highly active wheelchair user that primarily utilizes her w/c for functional mobility in the her home and community, but occasionally uses forearm crutches for short distances indoors. PAST MEDICAL HISTORY: Significant for postural orthostatic tachycardia. 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 She travels internationally for her [employer] competitions. She lives alone independently in a w/c accessible apartment with no stairs. She drives independently and transfers into her car and stows her w/c. EVALUATION: COGNITION: Alert and oriented x4. SENSATION: Intact to light touch. PAIN: No complaints of pain at this time. SKIN AND EDEMA: Intact with no edema noted. RANGE OF MOTION: BUE: WNL. Pain states that her L shoulder frequently dislocates with scapular retraction. BLE: Ms. Tinsley lacks >50% AROM in hips, knees, and ankles. PROM WNL. STRENGTH: BUE: Grossly 5/5. BLE: Grossly 3-/5. TONE: Mild tone BLE. ENDURANCE: Good utilizing manual ultralightweight w/c for functional mobility. AMBULATION: Patient occasionally ambulates short household distances with forearm crutches. TRANSFERS: Independent with sit pivot. BALANCE: Sitting: Dynamic and static: Good. Standing: not tested. Patient requires use of forearm crutches to maintain upright posture. MOBILITY RELATED ACTIVITIES OF DAILY LIVING: Ms. Tinsley is independent with grooming, dressing, and bathing from a seated position. She is independent with eating, toileting, meal preparation, laundry and cleaning . She is dependent on her manual w/c for accessing her home and community for completion of MRADLs and for her Olympic training. WHEELCHAIR ASSESSMENT: Ms. Tinsley is not a candidate for cane/crutches/walker as she does not have the BLE function required to ambulate any significant distance. Patient is unable to use any other standard, lightweight or high strength manual wheelchairs. Patient is a very active w/c user with her daily activities including completion of all MRADLs and IADLs independently such as driving, training for ParaOlympic competitions, and travelling internationally for competitions. She requires the use of an ultra lightweight manual wheelchair for in home and community mobility. Patient requires an adjustable axle position, also not available on any high strength lightweight wheelchair in order to improve access to wheels, promote optimal biomechanical alignment for efficient propulsion and prevention of repetitive stress injuries, and to enable adjustment of front/rear seat to floor height. This type of w/c will allow the custom adjustments that she requires for optimal fit, support, and propulsion. Ms. Tinsley requires a titanium frame to absorb vibration and allow reduction of force while self-propelling over uneven terrain and uneven surfaces such as door thresholds, carpet, and various surface materials. She does have increased tone in her BLE which can be increased with shock and vibration, thereby reducing function. She also independently lifts her w/c daily into her car which requires a lightweight frame. Ms. Tinsley is currently successfully utilizing an ultra lightweight w/c with titanium frame and a replacement w/c would allow her to continue to function independently. RECOMMENDATIONS: It is recommended at this time that the patient receive the following : Ms. Tinsley requires: [employer] Aero T Aluminum Frame manual ultra lightweight w/c (K0005) required to allow Ms. Tinsley to continue to function as a highly active and independent w/c user. She is dependent on her current K0005 titanium frame w/c for functional mobility in her home and community. [employer] TiLite TRA Frame required. Ms. Tinsley requires a highly durable w/c frame due to her highly active lifestyle that includes training for the ParaOlympics and international competitions, as well as living independently and performing all MRADLs and IADLS independently from her w/c. [employer] Custom Frame Depth (+1.5 ) required to accommodate Ms. Tinsley's body measurements for optimal fit. [employer] Roho Lakisha Min contoured foam seat back support (K0669) required to provide optimal postural support and trunk stability to provide a stable base for upper extremity use within the chair and positional support to prevent development of abnormal posture. [employer] Roho Privacy shield (K0108) required to cover patient's lower back and buttocks and act as a privacy shield between the bottom of the back of the w/c to the seat base. [employer] 4 x 1.5 LiteSpeed Plst wheels (2) (E2221) and lola wheels (2) (E2225)required to provide a lightweight rim with a soft roll tire that absorbs vibrations and allows for ease of navigating rougher surfaces. TiSport 20/22 or 24 [employer] Sold Tires (2) (E2211) required. Pneumatic tires with airless inserts provide improved shock absorption when riding over door jams, changes in watson surface, and uneven terrain. Airless tires necessary because patient unable to maintain tire pressure and unable to change tires. [employer]Sport Natural Fit LT Standard nurse obgyn Handrims (2) (E2205) required to push the w/c without needing to use the tires. The LT feature has a reduced weight, smaller profile oval that provides a smaller gripping surface required by the patient's smaller hands. [employer]Sport composite scissor lock (2) (E2206) required to maintain wheel locks out of the path of upper extremity travel during propulsion to prevent injury to the hands/fingers. [employer]Sport aluminum rigid removable standard side guards (2) (K0108) required to maintain proper hip alignment, maintain cushion in a centered position when seated in the w/c, and to protect clothes/skin from hitting the wheels. [employer]Sport TiLite T black aluminum rear anti-tips (2) (E0971) required for safety to prevent w/c from tipping backwards and resulting in user injury. [employer]Sport TiLite T burnt orange Neoprene impact guards with ultrasuede (A9270) required. Impact guards line the edges of the foot support to provide skin protection to the lower extremities during transfers in/out of the wheelchair and during use. [employer]Sport TiLite T luggage carriers (A9270) required to allow patient to carry her luggage independently while travelling as a ParaOlympian. [employer]Sport TiLite T Crutch hudson(E2207) required to allow patient to carry her forearm crutches independently for use as needed. [employer]Sport two-piece rigid flip-up footrest (2) (K0042) required for proper lower extremity support and to prevent feet from becoming entangled in the casters mount footplates. Flip-up footrest required for safety during transfers. Tag auto-style positioning belt (E0978) required to promote optimal hip position in chair and allow for safe transportation in vehicles when patient remains in her w/c. PLAN: The plan is for the patient to work with her preferred DME provider, John, to procure the proper mobility equipment. John will also perform a home assessment. Patient is in verbal agreement with this plan and does not express an unwillingness to use the recommended equipment. Thank you for this referral. If you have any questions, please contact Tina Maxwell OTR/L at [phone]. Electronically Signed by: Tina Maxwell OT 08/30/2018 10:24 A Tina Maxwell, OT Date Dict: 08/30/2018/10:23 A/Tina Maxwell, OT Date Trans: 08/30/2018 10:23 A/ JUDITH_JN:[id number] cc: Amilcar Beckett M.D. 1218 [facility] [place] [address] Dillan Adler M.D. 4631 [facility]. Physical Medicine Rehab [facility] [id number] Medical Records Normal [facility] Vital Signs Date Time Vital Sign Value Performing Clinician Facility 05-13-2025 14:24-0400 Body height 157.48 cm Dionne Chambers DO Work Phone: [facility] 05-13-2025 14:24-0400 Body mass index (BMI) [Ratio] 45.7 kg/m2 Dionne Chambers DO Work Phone: [facility] 05-13-2025 14:24-0400 Body weight 113.39 kg Dionne Chambers DO Work Phone: [facility] 05-13-2025 14:24-0400 Diastolic blood pressure 80 mm[Hg] Dionen Chambers DO Work Phone: [facility] 05-13-2025 14:24-0400 Heart rate 86 /min Dionne Chambers DO Work Phone: [facility] 05-13-2025 14:24-0400 Respiratory rate 16 /min Dionne Chambers DO Work Phone: [facility] 05-13-2025 14:24-0400 SaO2% (BldA) [Mass fraction] 98 % Dionne Chambers DO Work Phone: [facility] 05-13-2025 14:24-0400 Systolic blood pressure 118 mm[Hg] Dionne Chambers DO Work Phone: [facility] 01-09-2025 11:44-0400 Body weight 106.59 kg PCP No [facility] 01-09-2025 11:44-0400 Diastolic blood pressure 70 mm[Hg] PCP No [facility] 01-09-2025 11:44-0400 Systolic blood pressure 104 mm[Hg] PCP No [facility] 12-17-2024 14:29-0400 Body height 157.48 cm Odette Escobedo PA-C Work Phone: [facility] 12-17-2024 14:29-0400 Body mass index (BMI) [Ratio] 46.6 kg/m2 Odette Escobedo PA-C Work Phone: [facility] 12-17-2024 14:29-0400 Body weight 115.66 kg Odette Escobedo PA-C Work Phone: [facility] 12-17-2024 14:29-0400 Diastolic blood pressure 68 mm[Hg] Odette Escobedo PA-C Work Phone: [facility] 12-17-2024 14:29-0400 Heart rate 93 /min Odette Escobedo PA-C Work Phone: [facility] 12-17-2024 14:29-0400 Respiratory rate 18 /min Odette Escobedo PA-C Work Phone: [facility] 12-17-2024 14:29-0400 SaO2% (BldA) [Mass fraction] 98 % Odette Escobedo PA-C Work Phone: [facility] 12-17-2024 14:29-0400 Systolic blood pressure 108 mm[Hg] Odette Escobedo PA-C Work Phone: [facility] 12-11-2024 13:55-0400 Body height 157.5 cm Pacc 2 Work Phone: [facility] 12-11-2024 13:55-0400 Body mass index (BMI) [Ratio] 46.64 kg/m2 Pacc 2 Work Phone: [facility] 12-11-2024 13:55-0400 Body temperature 98.01 [degF] Pacc 2 Work Phone: [facility] 12-11-2024 13:55-0400 Body weight 115.67 kg Pacc 2 Work Phone: [facility] Comment on above: stated--in wheelchair 12-11-2024 13:55-0400 Diastolic blood pressure 85 mm[Hg] Pacc 2 Work Phone: [facility] 12-11-2024 13:55-0400 Heart rate 85 /min Pacc 2 Work Phone: [facility] 12-11-2024 13:55-0400 Respiratory rate 16 /min Pacc 2 Work Phone: [facility] 12-11-2024 13:55-0400 SaO2% (BldA) [Mass fraction] 100 % Pacc 2 Work Phone: [facility] 12-11-2024 13:55-0400 Systolic blood pressure 132 mm[Hg] Pacc 2 Work Phone: [facility] 11-16-2024 09:02-0400 Body height 157.5 cm Markie Segura NP Work Phone: [facility] 11-16-2024 09:02-0400 Body mass index (BMI) [Ratio] 46.64 kg/m2 Markie Segura NP Work Phone: [facility] 11-16-2024 09:02-0400 Body weight 115.67 kg Markie Segura NP Work Phone: [facility] 12-20-2023 08:01-0400 Diastolic blood pressure 66 mm[Hg] Ruben Bolden MD Work Phone: [facility] 12-20-2023 08:01-0400 Heart rate 91 /min Ruben Bolden MD Work Phone: [facility] 12-20-2023 08:01-0400 SaO2% (BldA) [Mass fraction] 100 % Ruben Bolden MD Work Phone: [facility] 12-20-2023 08:01-0400 Systolic blood pressure 110 mm[Hg] Ruben Bolden MD Work Phone: [facility] 12-19-2023 13:32-0400 Body weight 117.02 kg DO Dionne Chambers Work Phone: [facility] 12-19-2023 12:38-0400 Body height 157.48 cm DO Dionne Kuns Work Phone: [facility] 12-19-2023 12:38-0400 Body mass index (BMI) [Ratio] 46.7 kg/m2 DO Dionne Kuns Work Phone: [facility] 12-19-2023 12:38-0400 Diastolic blood pressure 72 mm[Hg] DO Dionne Kuns Work Phone: [facility] 12-19-2023 12:38-0400 Heart rate 82 /min DO Dionne Kuns Work Phone: [facility] 12-19-2023 12:38-0400 Respiratory rate 16 /min DO Dionne Kuns Work Phone: [facility] 12-19-2023 12:38-0400 SaO2% (BldA) [Mass fraction] 97 % DO Dionne Gonsalos Work Phone: [facility] 12-19-2023 12:38-0400 Systolic blood pressure 120 mm[Hg] DO Dionne Kuns Work Phone: [facility] 12-14-2023 16:12-0400 Body mass index (BMI) [Ratio] 46.99 kg/m2 Sylvia Colbert MD Work Phone: [facility] 12-14-2023 16:12-0400 Body weight 116.53 kg Sylvia Colbert MD Work Phone: [facility] 12-14-2023 16:12-0400 Diastolic blood pressure 82 mm[Hg] Sylvia Colbert MD Work Phone: [facility] 12-14-2023 16:12-0400 Heart rate 97 /min Sylvia Colbert MD Work Phone: [facility] 12-14-2023 16:12-0400 Systolic blood pressure 126 mm[Hg] Sylvia Colbert MD Work Phone: [facility] 10-12-2023 12:44-0500 Body height 157.48 cm DO Dionne Gonsalos Work Phone: [facility] 10-12-2023 12:44-0500 Body mass index (BMI) [Ratio] 46.3 kg/m2 DO Dionne Kuns Work Phone: [facility] 10-12-2023 12:44-0500 Body weight 114.75 kg DO Dionne Gonsalos Work Phone: [facility] 10-12-2023 12:44-0500 Diastolic blood pressure 74 mm[Hg] DO Dionne Kuns Work Phone: [facility] 10-12-2023 12:44-0500 Heart rate 98 /min DO Dionne Gonsalos Work Phone: [facility] 10-12-2023 12:44-0500 Respiratory rate 16 /min DO Dionne Chambers Work Phone: [facility] 10-12-2023 12:44-0500 SaO2% (BldA) [Mass fraction] 98 % DO Dionne Chambers Work Phone: [facility] 10-12-2023 12:44-0500 Systolic blood pressure 122 mm[Hg] DO Dionne Chambers Work Phone: [facility] 08-19-2023 10:00-0500 Body height 158.75 cm Dionne Brushiman Other [email or web address] Other 08-19-2023 10:00-0500 Diastolic blood pressure 80 mm[Hg] Dionnereina Brushiman Other [email or web address] Other 08-19-2023 10:00-0500 Respiratory rate 16 /min Dionne Chambers Other [employer] Other 08-19-2023 10:00-0500 SaO2% (BldA) [Mass fraction] 98 % Dionne Chambers Other [employer] Other 08-19-2023 10:00-0500 Systolic blood pressure 120 mm[Hg] Dionne Chambers Other [employer] Other 07-26-2023 13:15-0500 Body height 158.75 cm Dionne Brushiman Other [employer] Other 07-26-2023 13:15-0500 Body mass index (BMI) [Ratio] 45.53 kg/m2 Dionne Chambers Other [employer] Other 07-26-2023 13:15-0500 Body weight 114.76 kg Dionne Chambers Other [employer] Other 07-26-2023 13:15-0500 Diastolic blood pressure 76 mm[Hg] Dionne Chambers Other [employer] Other 07-26-2023 13:15-0500 Respiratory rate 16 /min Dionne Chambers Other [employer] Other 07-26-2023 13:15-0500 SaO2% (BldA) [Mass fraction] 98 % Dionne Chambers Other [employer] Other 07-26-2023 13:15-0500 Systolic blood pressure 120 mm[Hg] Dionne Chambers Other [employer] Other 02-03-2023 08:56-0400 Body height 157.5 cm Dian Desai MD Work Phone: [facility] 02-03-2023 08:56-0400 Body weight 114.17 kg Dian Desai MD Work Phone: [facility] 08-16-2022 11:30-0500 Body height 158.75 cm Dionne Chambers Other [email or web address] Other 08-16-2022 11:30-0500 Diastolic blood pressure 70 mm[Hg] Dionne Chambers Other [email or web address] Other 08-16-2022 11:30-0500 Respiratory rate 16 /min Dionne Chambers Other [employer] Other 08-16-2022 11:30-0500 SaO2% (BldA) [Mass fraction] 99 % Dionne Chambers Other [employer] Other 08-16-2022 11:30-0500 Systolic blood pressure 116 mm[Hg] Dionne Chambers Other [employer] Other 06-10-2022 13:36-0400 Body height 157.5 cm Pacc 6 Work Phone: [facility] 06-10-2022 13:36-0400 Body temperature 97.5 [degF] Pacc 6 Work Phone: [facility] 06-10-2022 13:36-0400 Body weight 109.77 kg Pacc 6 Work Phone: [facility] 06-10-2022 13:36-0400 Diastolic blood pressure 68 mm[Hg] Pacc 6 Work Phone: [facility] 06-10-2022 13:36-0400 Heart rate 89 /min Pacc 6 Work Phone: [facility] 06-10-2022 13:36-0400 SaO2% (BldA) [Mass fraction] 99 % Pacc 6 Work Phone: [facility] 06-10-2022 13:36-0400 Systolic blood pressure 128 mm[Hg] Pacc 6 Work Phone: [facility] 05-27-2022 11:45-0400 Diastolic blood pressure 80 mm[Hg] Dian Desai MD Work Phone: [facility] 05-27-2022 11:45-0400 Heart rate 98 /min Dian Desai MD Work Phone: [facility] 05-27-2022 11:45-0400 Systolic blood pressure 129 mm[Hg] Dian Desai MD Work Phone: [facility] 05-04-2022 10:13-0400 Body height 158.75 cm Dionne Chambers Other [email or web address] Other 04-30-2022 11:30-0400 Body height 158.75 cm Dionne Chambers Other [email or web address] Other 04-30-2022 11:30-0400 Diastolic blood pressure 80 mm[Hg] Dionne Chambers Other [email or web address] Other 04-30-2022 11:30-0400 Respiratory rate 20 /min Dionne Brushiman Other [email or web address] Other 04-30-2022 11:30-0400 SaO2% (BldA) [Mass fraction] 99 % Dionne Brushiman Other [employer] Other 04-30-2022 11:30-0400 Systolic blood pressure 118 mm[Hg] Dionne Patricia Other [employer] Other 04-28-2022 10:46-0400 Body height 157.5 cm Dian Desai MD Work Phone: [facility] 04-28-2022 10:46-0400 Body weight 99.79 kg Dian Desai MD Work Phone: [facility] 04-28-2022 10:46-0400 Diastolic blood pressure 77 mm[Hg] Dian Desai MD Work Phone: [facility] 04-28-2022 10:46-0400 Heart rate 99 /min Dian Desai MD Work Phone: [facility] 04-28-2022 10:46-0400 Systolic blood pressure 115 mm[Hg] Dian Desai MD Work Phone: [facility] 04-16-2022 20:36-0400 Diastolic blood pressure 80 mm[Hg] Luca Botello [facility] 04-16-2022 20:36-0400 Heart rate 95 /min Luca Rosmery [facility] 04-16-2022 20:36-0400 Respiratory rate 16 /min Luca Oreillye [facility] 04-16-2022 20:36-0400 SaO2% (BldA) [Mass fraction] 99 % Luca Oreillye [facility] 04-16-2022 20:36-0400 Systolic blood pressure 125 mm[Hg] Luca Oreillye [facility] 04-16-2022 17:45-0400 Body temperature 98.42 [degF] Luca Oreillye [facility] 04-16-2022 17:45-0400 Diastolic blood pressure 83 mm[Hg] Luca Oreillye [facility] 04-16-2022 17:45-0400 Heart rate 97 /min Luca Oreillye [facility] 04-16-2022 17:45-0400 Respiratory rate 16 /min Luca Oreillye [facility] 04-16-2022 17:45-0400 SaO2% (BldA) [Mass fraction] 100 % Luca Oreillye [facility] 04-16-2022 17:45-0400 Systolic blood pressure 127 mm[Hg] Luca Oreillye [facility] 04-13-2022 14:30-0400 Body height 158.75 cm Dionne Chambers Other [employer] [facility] [employer] Other 04-13-2022 14:30-0400 Diastolic blood pressure 62 mm[Hg] Dionne Chambers Other [employer] [facility] [employer] Other 04-13-2022 14:30-0400 Respiratory rate 29 /min Dionne Chambers Other [facility] [employer] Other 04-13-2022 14:30-0400 SaO2% (BldA) [Mass fraction] 99 % Dionne Chambers Other [facility] [employer] Other 04-13-2022 14:30-0400 Systolic blood pressure 110 mm[Hg] Dionne Chambers Other [facility] [employer] Other 03-08-2022 08:30-0400 Diastolic blood pressure 82 mm[Hg] Dionne Chambers Work Phone: [facility] [employer] 250 DO Work Phone: 03-08-2022 08:30-0400 Systolic blood pressure 130 mm[Hg] Dionne Chambers Work Phone: [facility] 250 DO Work Phone: 03-08-2022 08:27-0400 Body height 157.48 cm Dionne Chambers Work Phone: [facility] 250 DO Work Phone: 03-08-2022 08:27-0400 Body mass index (BMI) [Ratio] Medical Reason Not Done Dionne Chambers Work Phone: [facility] 250 DO Work Phone: 03-08-2022 08:27-0400 Diastolic blood pressure 80 mm[Hg] Dionne Chambers Work Phone: [facility] 250 DO Work Phone: 03-08-2022 08:27-0400 Heart rate 92 /min Dionne Chambers Work Phone: [facility] 250 DO Work Phone: 03-08-2022 08:27-0400 Systolic blood pressure 122 mm[Hg] Dionne Chambers Work Phone: [facility] 250 DO Work Phone: 01-15-2022 08:06-0400 Body height 157.5 cm Jossie Stoll MD Work Phone: [facility] 01-15-2022 08:06-0400 Body temperature 97.5 [degF] Jossie Stoll MD Work Phone: [facility] 01-15-2022 08:06-0400 Body weight 98.43 kg Jossie Stoll MD Work Phone: [facility] 01-15-2022 08:06-0400 Diastolic blood pressure 60 mm[Hg] Jossie Stoll MD Work Phone: [facility] 01-15-2022 08:06-0400 Heart rate 97 /min Jossie Stoll MD Work Phone: [facility] 01-15-2022 08:06-0400 Systolic blood pressure 114 mm[Hg] Jossie Stoll MD Work Phone: [facility] 01-07-2022 14:45-0400 Body height 158.75 cm Dionne Chambers Other [facility] [employer] Other 01-07-2022 14:45-0400 Diastolic blood pressure 78 mm[Hg] Dionne Chambers Other [facility] [employer] Other 01-07-2022 14:45-0400 Respiratory rate 16 /min Dionne Chambers Other [employer] Other 01-07-2022 14:45-0400 SaO2% (BldA) [Mass fraction] 99 % Dionne Chambers Other [facility] [employer] Other 01-07-2022 14:45-0400 Systolic blood pressure 120 mm[Hg] Dionne Chambers Other [email or web address] Other 11-25-2021 10:56-0400 Blood Pressure Location Fatuma Lue [facility] 11-25-2021 10:56-0400 Diastolic blood pressure 93 mm[Hg] Fatuma Lue [facility] 11-25-2021 10:56-0400 Heart rate 95 /min Fatuma Lue [facility] [email or web address] 11-25-2021 10:56-0400 Systolic blood pressure 146 mm[Hg] Fatuma Lue [facility] [email or web address] 09-07-2021 13:30-0500 Body height 158.75 cm Dionne Chambers Other [email or web address] Other 09-07-2021 13:30-0500 Body mass index (BMI) [Ratio] 39.23 kg/m2 Dionne Chambers Other [email or web address] Other 09-07-2021 13:30-0500 Body weight 98.88 kg Dionne Chambers Other [email or web address] Other 09-07-2021 13:30-0500 Diastolic blood pressure 70 mm[Hg] Dionne Chambers Other [email or web address] Other 09-07-2021 13:30-0500 Respiratory rate 18 /min Dionne Chambers Other [email or web address] Other 09-07-2021 13:30-0500 SaO2% (BldA) [Mass fraction] 98 % Dionne Chambers Other [employer] Other 09-07-2021 13:30-0500 Systolic blood pressure 122 mm[Hg] Dionne Chambers Other [email or web address] Other 06-29-2021 14:30-0500 Body height 158.75 cm Dionne Chambers Other [employer] Other 06-29-2021 14:30-0500 Body mass index (BMI) [Ratio] 39.74 kg/m2 Dionne Chambers Other [employer] Other 06-29-2021 14:30-0500 Body weight 100.15 kg Dionne Chambers Other [employer] Other 06-29-2021 14:30-0500 Diastolic blood pressure 66 mm[Hg] Dionne Chambers Other [employer] Other 06-29-2021 14:30-0500 Respiratory rate 18 /min Dionne Chambers Other [employer] Other 06-29-2021 14:30-0500 SaO2% (BldA) [Mass fraction] 99 % Dionne Chambers Other [employer] Other 06-29-2021 14:30-0500 Systolic blood pressure 112 mm[Hg] Dionne Chambers Other [employer] Other 06-15-2021 14:30-0500 Body height 158.75 cm Dionne Chambers Other [employer] Other 06-15-2021 14:30-0500 Diastolic blood pressure 72 mm[Hg] Dionne Chambers Other [employer] Other 06-15-2021 14:30-0500 Respiratory rate 18 /min Dionne Brushiman Other [employer] Other 06-15-2021 14:30-0500 SaO2% (BldA) [Mass fraction] 99 % Dionne Brushiman Other [employer] Other 06-15-2021 14:30-0500 Systolic blood pressure 110 mm[Hg] Dionne Chambers Other [employer] Other 05-12-2021 15:45-0400 Body height 158.75 cm Dionne Chambers Other [employer] Other 05-12-2021 15:45-0400 Body mass index (BMI) [Ratio] 39.95 kg/m2 Dionne Chambers Other [employer] Other 05-12-2021 15:45-0400 Body temperature 98.2 [degF] Dionnereina Chambers Other [employer] Other 05-12-2021 15:45-0400 Body weight 100.7 kg Dionne Chambers Other [employer] Other 05-12-2021 15:45-0400 Diastolic blood pressure 66 mm[Hg] Dionne Chambers Other [employer] Other 05-12-2021 15:45-0400 Respiratory rate 16 /min Dionne Chambers Other [employer] Other 05-12-2021 15:45-0400 SaO2% (BldA) [Mass fraction] 98 % Dionne Chambers Other [employer] Other 05-12-2021 15:45-0400 Systolic blood pressure 118 mm[Hg] Dionne Chambers Other [employer] Other 04-03-2019 06:48-0400 Respiratory Rate 16 /min [facility] 04-03-2019 06:26-0400 BP Diastolic 88 mm[Hg] [facility] 04-03-2019 06:26-0400 BP Systolic 133 mm[Hg] [facility] 04-03-2019 06:26-0400 Pulse (Heart Rate) 62 /min [facility] 04-03-2019 06:26-0400 Pulse Oximetry 100 % [facility] 04-03-2019 04:16-0400 BMI (Body Mass Index) 27.12 kg/m2 [facility] 04-03-2019 04:16-0400 Body Temperature 98.1 [degF] [facility] 04-03-2019 04:16-0400 Body weight 90.72 kg [facility] 04-03-2019 04:16-0400 Height 182.9 cm [facility] Encounters Encounter Date Encounter Type Care Provider Facility Start: 10-30-2025 ambulatory [facility] Facility: [facility] Start: 05-13-2025 End: 05-13-2025 ambulatory Dionne Chambers DO Work Phone: [facility] Work Phone: Start: 05-13-2025 End: 05-13-2025 Patient encounter procedure Dionne Drake DO -[facility] Work Phone: Start: 05-07-2025 End: 05-07-2025 ambulatory Dionne Chambers DO Work Phone: [facility] Work Phone: Start: 05-07-2025 End: 05-07-2025 Patient encounter procedure Dionne Patricia Drake DO -[facility] Work Phone: Start: 05-06-2025 Non-patient / Non-visit Valerie Kern [employer] -[facility] Work Phone: Start: 05-02-2025 End: 05-02-2025 ambulatory [facility] Facility:[facility] Start: 05-02-2025 End: 05-02-2025 ambulatory [facility] Facility:[facility] Start: 03-01-2025 End: 03-01-2025 Telemedicine consultation with patient Charu Martínez MD Work Phone: Endocrinology Start: 03-01-2025 End: 03-01-2025 ambulatory Charu Martínez MD Work Phone: Endocrinology Comment on above: BMI 45.0-49.9, adult (HCC) (Primary Dx) Start: 02-27-2025 End: 02-27-2025 Orders Only Dian Desai MD Work Phone: Urology Comment on above: OAB (overactive blad jose l) (Primary Dx) Start: 02-26-2025 End: 04-16-2025 Telephone encounter Charu Martínez MD Work Phone: Endocrinology Comment on above: Patient Question; Or ders; Symptoms; Appointment Appointment Start: 02-25-2025 End: 02-25-2025 Telemedicine consultation with patient Dian Desai MD Work Phone: Urology Start: 02-25-2025 End: 02-25-2025 ambulatory Dian Desai MD Work Phone: Urology Comment on above: Urge incontinence (P rimary Dx); Stress incontinence of urine Start: 02-25-2025 End: 02-25-2025 Patient encounter procedure Eugenia Woods MD Work Phone: Neurology Comment on above: Seizure-like activit y (HCC) (Primary Dx) Start: 02-18-2025 End: 02-18-2025 ambulatory LEEANNA WILEY Not Available Start: 02-18-2025 End: 02-18-2025 Bamboo flowsheet Leeanna Wiley PT Work Phone: [facility] Start: 02-18-2025 End: 02-18-2025 Bamboo flowsheet Leeanna Wiley PT Work Phone: [facility] Start: 02-18-2025 End: 02-18-2025 ambulatory Leeanna Wiley PT Work Phone: [facility] Comment on above: Difficulty walking ( Primary Dx); Acute postoperative pain of right knee Start: 02-18-2025 End: 02-25-2025 ambulatory Dionne Chambers DO Work Phone: [facility] Work Phone: Comment on above: Hello Start: 02-18-2025 End: 02-18-2025 Patient encounter procedure Dionne Drake DO -[facility] Work Phone: Start: 02-15-2025 End: 02-15-2025 ambulatory Charu Martínez MD Work Phone: endocrinology Start: 02-13-2025 End: 02-13-2025 ambulatory Leeanna Wiley PT Work Phone: [facility] Comment on above: Difficulty walking ( Primary Dx); Acute postoperative pain of right knee Start: 02-12-2025 End: 02-12-2025 ambulatory Leeanna Wiley PT Work Phone: [facility] Comment on above: Difficulty walking ( Primary Dx); Acute postoperative pain of right knee Start: 02-12-2025 End: 02-12-2025 Bamboo flowsheet Leeanna Wiley PT Work Phone: [facility] Start: 02-12-2025 End: 02-12-2025 Bamboo flowsheet Leeanna Wiley PT Work Phone: [facility] Start: 02-11-2025 End: 02-11-2025 Bamboo flowsheet Leeanna Wiley PT Work Phone: [facility] Start: 02-11-2025 End: 02-11-2025 Bamboo flowsheet Leeanna Wiley PT Work Phone: [facility] Start: 02-11-2025 End: 02-11-2025 Patient encounter procedure Charu Martínez MD -Lab [place] Work Phone: Start: 02-11-2025 End: 02-11-2025 ambulatory Leeanna Wiley PT Work Phone: [facility] Comment on above: Difficulty walking ( Primary Dx); Acute postoperative pain of right knee Start: 02-06-2025 End: 02-07-2025 ambulatory Leeanna Wiley PT Work Phone: [facility] Comment on above: Difficulty walking ( Primary Dx); Acute postoperative pain of right knee Start: 02-06-2025 End: 02-06-2025 Bamboo flowsheet Leeanna Wiley PT Work Phone: [facility] Start: 02-06-2025 End: 02-06-2025 Bamboo flowsheet Leeanna Wiley PT Work Phone: [facility] Start: 02-05-2025 End: 02-05-2025 ambulatory Leeanna Wiley PT Work Phone: [facility] Comment on above: Difficulty walking ( Primary Dx); Acute postoperative pain of right knee Start: 02-05-2025 End: 02-05-2025 Bamboo flowsheet Leeanna Wiley PT Work Phone: [facility] Start: 02-05-2025 End: 02-05-2025 Bamboo flowsheet Leeanna Wiley PT Work Phone: [facility] Start: 02-05-2025 End: 02-05-2025 Telephone encounter Leeanna Wiley PT Work Phone: [facility] Start: 02-04-2025 End: 02-04-2025 ambulatory Leeanna Wiley PT Work Phone: [facility] Comment on above: Difficulty walking ( Primary Dx); Acute postoperative pain of right knee Start: 02-04-2025 End: 02-04-2025 Bamboo flowsheet Leeanna Arturo Saurabh PT Work Phone: [facility] Start: 02-04-2025 End: 02-04-2025 Bamboo flowsheet Leeanna Morris Saurabh PT Work Phone: [facility] Start: 01-23-2025 End: 01-23-2025 Telemedicine consultation with patient Deuce Farley ROJAS.HR RECRUITER Work Phone: Neurology Start: 01-23-2025 End: 01-23-2025 ambulatory Deuce Davis Dotazdilshad BUSINESS UNIT CONTROLLER.HR RECRUITER Work Phone: Neurology Comment on above: Staring episodes (Pr imary Dx); Diplegic cerebral palsy (HCC); Absence seizure (HCC); Facial pain Start: 01-22-2025 End: 01-22-2025 ambulatory Leeanna Arturo Saurabh PT Work Phone: [facility] Comment on above: Difficulty walking ( Primary Dx); Acute postoperative pain of right knee Start: 01-22-2025 End: 01-22-2025 Bamboo flowsheet Leeanna Arturo Saurabh PT Work Phone: [facility] Start: 01-22-2025 End: 01-22-2025 Bamboo flowsheet Leeanna Arturo Saurabh PT Work Phone: [facility] Start: 01-17-2025 End: 01-17-2025 ambulatory PARKER QUEEN Not Available Start: 01-14-2025 End: 01-14-2025 Clinical Support Parker Queen PT Work Phone: [facility] Comment on above: Difficulty walking ( Primary Dx); Acute postoperative pain of right knee Start: 01-11-2025 End: 01-11-2025 Bamboo flowsheet Markie Segura HAZARDOUS MATERIALS TANKER DRIVER Work Phone: [facility] Start: 01-11-2025 End: 01-11-2025 Bamboo flowsheet Markie Segura HAZARDOUS MATERIALS TANKER DRIVER Work Phone: [facility] Start: 01-11-2025 End: 01-11-2025 Postop follow up visit related to original px Markie Segura HAZARDOUS MATERIALS TANKER DRIVER Work Phone: [facility] Comment on above: S/P right knee arthr oscopy (Primary Dx) Start: 01-11-2025 End: 01-11-2025 ambulatory MARKIE SEGURA Not Available Start: 01-11-2025 End: 01-11-2025 Telephone encounter Sylvia Colbert MD Work Phone: Endocrinology Comment on above: Results Difficulty walking ( Primary Dx); Acute postoperative pain of right knee Start: 01-09-2025 End: 01-09-2025 Telephone encounter Sylvia Colbert MD Work Phone: Endocrinology Comment on above: Results Start: 01-09-2025 End: 01-09-2025 Patient encounter procedure PCP No [facility] [id number] Work Phone: Start: 01-09-2025 End: 01-09-2025 ambulatory P[facility]y [facility] Facility:[facility] Start: 01-07-2025 End: 01-07-2025 Nursing evaluation of patient and report Judy Self LPN Work Phone: Urology Comment on above: Overactive bladder ( Primary Dx) Start: 01-07-2025 End: 01-07-2025 ambulatory DIONNE CHAMBERS Facility:[facility] Start: 01-07-2025 End: 01-07-2025 Patient encounter procedure Dionne Chambers DO Work Phone: [facility] [place] Work Phone: Start: 01-07-2025 End: 01-07-2025 ambulatory Dionne Chambers DO Work Phone: [facility] Work Phone: Start: 01-03-2025 End: 01-03-2025 Clinical Support Parker Queen PT Work Phone: [facility] Comment on above: Difficulty walking ( Primary Dx); Acute postoperative pain of right knee Start: 01-02-2025 End: 01-02-2025 Telephone encounter Charu Martínez MD Work Phone: Endocrinology Start: 01-02-2025 End: 01-02-2025 Telemedicine consultation with patient Charu Martínez MD Work Phone: Endocrinology Start: 01-02-2025 End: 01-02-2025 ambulatory Charu Martínez MD Work Phone: Endocrinology Comment on above: Damián's disease; Malaise and fatigue; Abnormal weight gain; BMI 45.0-49.9, adult (HCC) Start: 01-01-2025 End: 01-01-2025 Clinical Support Parker Queen PT Work Phone: [facility] Comment on above: Difficulty walking ( Primary Dx); Acute postoperative pain of right knee Start: 12-29-2024 End: 12-29-2024 Clinical Support Parker Queen PT Work Phone: [facility] Comment on above: Difficulty walking ( Primary Dx); Acute postoperative pain of right knee Start: 12-26-2024 End: 12-26-2024 Clinical Support Parker Queen PT Work Phone: [facility] Comment on above: Difficulty walking ( Primary Dx); Acute postoperative pain of right knee Start: 12-20-2024 End: 12-20-2024 ambulatory PARKER QUEEN Not Available Start: 12-19-2024 End: 12-19-2024 ambulatory DIONNE CHAMBERS Facility:[facility] Start: 12-18-2024 End: 12-18-2024 Clinical Support Parker Queen PT Work Phone: [facility] Comment on above: Difficulty walking ( Primary Dx); Acute postoperative pain of right knee Start: 12-17-2024 End: 12-17-2024 Patient encounter procedure Odette Escobedo PA-C Work Phone: [facility] Family Medicine [place] Work Phone: Start: 12-17-2024 End: 12-17-2024 ambulatory PARKER QUEEN [facility] Work Phone: Start: 12-13-2024 End: 12-13-2024 Clinical Support Parker Queen PT Work Phone: [facility] Comment on above: Difficulty walking ( Primary Dx); Acute postoperative pain of right knee Start: 12-11-2024 End: 12-11-2024 [facility] Work Phone: Pre Anesthesia Start: 12-11-2024 End: 12-11-2024 Anesthesia consultation [facility] Work Phone: Pre Anesthesia Comment on above: Pre-op evaluation (P rimary Dx); PONV (postoperative nausea and vomiting); Mild intermittent asthma, unspecified whether complicated (HCC); Obesity, Class III, BMI >= 40; Neurogenic bladder; Diplegic cerebral palsy (HCC) Start: 12-11-2024 End: 12-11-2024 Preprocedural examination done [place] [id number] Work Phone: [facility] Work Phone: Start: 12-11-2024 End: 12-11-2024 ambulatory DIONNE CHAMBERS Facility:[facility] Start: 12-11-2024 Encounter for other preprocedural examination DIONNE CHAMBERS [facility] Start: 12-10-2024 End: 12-10-2024 Telephone encounter Dian Desai MD Work Phone: Urology Comment on above: Difficulty walking ( Primary Dx); Acute postoperative pain of right knee Start: 12-07-2024 End: 12-07-2024 ambulatory Odette Escobedo [facility] Work Phone: Start: 12-07-2024 End: 12-07-2024 Departed Referred Odette Escobedo PA-C Work Phone: [facility] Start: 12-07-2024 End: 12-09-2024 External Result Encounter Odette MCKENZIE Work Phone: [facility] External Department Unsolicited Start: 12-07-2024 End: 12-09-2024 External Result Encounter Odette MCKENZIE Work Phone: [facility] External Department Unsolicited Start: 12-07-2024 End: 12-07-2024 Postop follow up visit related to original px Markie Segura HAZARDOUS MATERIALS TANKER DRIVER Work Phone: [facility] Comment on above: S/P right knee arthr oscopy (Primary Dx) Start: 12-07-2024 End: 12-07-2024 ambulatory MARKIE Buckley SEGURA [facility] Work Phone: Start: 12-07-2024 End: 12-07-2024 Patient encounter procedure [facility] Family Medicine [place] Work Phone: Start: 12-05-2024 End: 12-05-2024 ambulatory Swati Brenner RN Pre Anesthesia Start: 12-05-2024 End: 12-05-2024 Admission to same day surgery center Swati Brenner RN Pre Anesthesia Comment on above: Preparations For Ricky rosamaria (PACC) Pre-op exam (Primary Dx) Start: 12-05-2024 End: 12-05-2024 Preprocedural examination done Parker Queen PT Work Phone: [facility] Work Phone: Start: 12-04-2024 End: 12-04-2024 Patient encounter procedure Dian Desai MD Work Phone: Urology Comment on above: OAB (overactive blad ojse l) (Primary Dx); Acute cystitis without hematuria; Stress incontinence of urine Start: 12-04-2024 End: 12-04-2024 ambulatory Dian Desai MD Work Phone: Urology Start: 11-27-2024 End: 11-30-2024 Telephone encounter Jr. Hermilo Travis DO Work Phone: [facility] Comment on above: Results Start: 11-23-2024 End: 11-23-2024 ambulatory Leeanna Simmons Facility:[facility] [place] Start: 11-20-2024 End: 11-20-2024 Telephone encounter Jr. Hermilo Travis DO Work Phone: [facility]OPA[facility] Comment on above: Traveling Start: 11-16-2024 End: 11-16-2024 Bamboo flowsheet Markie Segura HAZARDOUS MATERIALS TANKER DRIVER Work Phone: [facility] Start: 11-16-2024 End: 11-16-2024 Bamboo flowsheet Markie Segura HAZARDOUS MATERIALS TANKER DRIVER Work Phone: [facility] Start: 11-16-2024 End: 11-16-2024 Patient encounter procedure Markie Segura HAZARDOUS MATERIALS TANKER DRIVER Work Phone: [facility] Comment on above: Pre-op examination ( Primary Dx) Start: 11-16-2024 End: 11-16-2024 Preprocedural examination done Markie Segura HAZARDOUS MATERIALS TANKER DRIVER Work Phone: [facility] Work Phone: Start: 11-16-2024 End: 11-26-2024 Refill Markie Segura HAZARDOUS MATERIALS TANKER DRIVER Work Phone: [facility] Comment on above: Chondromalacia of ri ght patella (Primary Dx) Start: 11-13-2024 End: 11-13-2024 ambulatory [facility] Facility:[facility] [place] Start: 09-20-2024 End: 09-20-2024 Telephone encounter Sylvia Colbert MD Work Phone: Endocrinology & Metabolic [place] Comment on above: Insurance Authorizat ion (Appeal letter tirzepatide, weight loss (ZEPBOUND) 2.5 mg/0.5 mL pen injector) Start: 09-13-2024 End: 09-14-2024 ambulatory Sylvia Colbert MD Work Phone: Endocrinology Comment on above: Hello Start: 09-13-2024 End: 09-13-2024 Telephone encounter Sylvia Colbert MD Work Phone: Endocrinology Comment on above: Medication Preauthor ization (tirzepatide, weight loss (ZEPBOUND) 2.5 mg/0.5 mL pen injector) Start: 09-07-2024 End: 09-07-2024 ambulatory GIOVANA HUNTER Facility:[facility] Start: 09-07-2024 End: 09-07-2024 Patient encounter procedure Olga Alondra ZAFAR Work Phone: Urology Comment on above: Urge incontinence Start: 09-07-2024 End: 09-07-2024 Telemedicine consultation with patient Olga Dueñasalber ZAFAR Work Phone: Urology Start: 09-06-2024 End: 09-06-2024 Telephone encounter Sylvia Colbert MD Work Phone: Endocrinology & Metabolic [place] Comment on above: Medication Preauthor ization (Zepbound 2.5mg) Start: 08-30-2024 End: 08-31-2024 ambulatory Sylvia Colbert MD Work Phone: Endocrinology Comment on above: Damián's disease (Primary Dx); Malaise and fatigue; Abnormal weight gain; BMI 45.0-49.9, adult ([facility]) Refill Request Start: 08-30-2024 End: 08-30-2024 Telemedicine consultation with patient Sylvia Colbert MD Work Phone: Endocrinology Start: 08-28-2024 End: 08-28-2024 Jesus Travis DO Work Phone: [facility]OP[facility] Start: 08-28-2024 End: 08-28-2024 Jesus Travis DO Work Phone: [facility] Start: 08-28-2024 End: 08-28-2024 ambulatory HERMILO IBARRA Not Available Start: 08-28-2024 End: 08-28-2024 Office outpatient visit 25 minutes Jr. Hermilo Travis DO Work Phone: [facility] Comment on above: Chondromalacia of ri ght patella (Primary Dx); Acute pain of right knee Start: 08-03-2024 End: 08-03-2024 Jesus Oconnor C Stepanic DO Work Phone: [facility] Start: 08-03-2024 End: 08-03-2024 Bamboo flowsheet Jr. Hermilo Travis DO Work Phone: [facility] Start: 08-03-2024 End: 08-03-2024 ambulatory HERMILO IBARRA Not Available Start: 08-03-2024 End: 08-03-2024 Office outpatient visit 25 minutes Jr. Hermilo Travis DO Work Phone: [facility] Comment on above: Internal derangement of right knee (Primary Dx); Acute pain of right knee Start: 05-24-2024 End: 05-25-2024 Telephone encounter Jr. Hermilo Travis DO Work Phone: [facility] Start: 03-19-2024 End: 03-19-2024 ambulatory Deuce Farley APRN.CNP Work Phone: Neurology Comment on above: Atypical facial pain (Primary Dx); Left-sided face pain Start: 03-19-2024 End: 03-19-2024 Telemedicine consultation with patient Deuce Susan Farley APRN.HR RECRUITER Work Phone: Neurology Start: 02-03-2024 Telephone encounter Sylvia Colbert MD Work Phone: Endocrinology Comment on above: Results Start: 01-31-2024 Telephone encounter Tiara Tomas MD Work Phone: Endocrinology Comment on above: Results Start: 01-23-2024 ambulatory Sylvia Colbert MD Work Phone: Endocrinology Comment on above: Re Start: 01-23-2024 E-mail encounter fro m caregiver Sylvia Colbert MD Work Phone: Endocrinology Start: 01-23-2024 Telephone encounter Sylvia Colbert MD Work Phone: Endocrinology Comment on above: Outside Lab Results Start: 01-19-2024 Physical examination [facility] Start: 01-05-2024 End: 01-05-2024 Subsequent hospital visit by physician Mri 4 Radio Main Q (I-Stat/1.5t/3t) Work Phone: MRI Q Comment on above: Trigeminal neuralgia [G50.0] Start: 01-03-2024 End: 01-03-2024 ambulatory DO Dionne Chambers Work Phone: [facility] Work Phone: Start: 01-03-2024 End: 01-03-2024 Patient encounter procedure DO Dionne Chambers Work Phone: [facility]Lab [place] Work Phone: Start: 12-26-2023 Refill Ruben Bolden MD Work Phone: Neurology Start: 12-22-2023 ambulatory Ruben Bolden MD Work Phone: Neurology Comment on above: Hello Start: 12-20-2023 End: 12-20-2023 Patient encounter procedure Ruben Bolden MD Work Phone: Neurology Comment on above: Trigeminal neuralgia (Primary Dx) Start: 12-19-2023 End: 12-19-2023 Patient encounter procedure DO Dionne Patricia Work Phone: [facility] Family Medicine [place] Work Phone: Start: 12-19-2023 End: 12-19-2023 ambulatory DO Dionne Chambers Work Phone: [facility] Work Phone: Start: 12-19-2023 End: 12-19-2023 Patient encounter procedure DO Dionne Chambers Work Phone: [facility] [place] Work Phone: Start: 12-14-2023 End: 12-14-2023 Office consultation new/estab patient 60 min Sylvia Colbert MD Work Phone: Endocrinology Comment on above: Malaise and fatigue (Primary Dx); 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 Start: 11-25-2023 End: 11-25-2023 Patient encounter procedure Olga Alondra PA-C Work Phone: [facility] Comment on above: Urge incontinence (P rimary Dx) Start: 10-21-2023 End: 10-21-2023 Patient encounter procedure Olga Alondra PA-C Work Phone: [facility] Comment on above: OAB (overactive blad jose l) (Primary Dx) Start: 10-14-2023 ambulatory Kole Hercules RN [facility] Start: 10-14-2023 Patient encounter procedure Kole Hercules RN NURSE ROBOTICS APPLICATION ENGINEER Comment on above: Referral Request Start: 10-12-2023 End: 10-12-2023 Patient encounter procedure DO Dionne Chambers Work Phone: [facility] Medicine [place] Work Phone: Start: 10-07-2023 ambulatory Olga Rudolphel P A-C Work Phone: [facility] Comment on above: Interstim Question Start: 10-07-2023 E-mail encounter fro m caregiver Olga Alondra PA-C Work Phone: [facility] Start: 08-19-2023 End: 08-19-2023 ambulatory Dionne Chambers Other [email or web address] Other Start: 08-19-2023 Office outpatient vi sit 15 minutes Dionne Chambers [facility] Family Medicine [place] Start: 08-18-2023 End: 08-18-2023 ambulatory DO Dionne Chambers Work Phone: [facility] Work Phone: Start: 08-18-2023 End: 08-18-2023 Patient encounter procedure DO Dionne Chambers Work Phone: [facility]-Ultrasound Main [place] Work Phone: Start: 08-15-2023 End: 08-15-2023 ambulatory Dionne Chambers Other [email or web address] Other Start: 08-15-2023 Telephone encounter Dionne Patricia [facility] [place] Start: 08-11-2023 End: 08-11-2023 ambulatory Dionne Brushiman Other [email or web address] Other Start: 08-11-2023 Telephone encounter Dionne Chambers [facility] [place] Start: 08-02-2023 End: 08-02-2023 ambulatory Dionne Chambers Other [email or web address] Other Start: 08-02-2023 Encounter by chung Chambers [facility] [place] Start: 07-28-2023 End: 07-28-2023 ambulatory DO Dionnereina Chambers Work Phone: [facility] Work Phone: Start: 07-28-2023 End: 07-28-2023 Patient encounter procedure DO Dionne Chambers Work Phone: [facility] [place] Work Phone: Start: 07-26-2023 End: 07-26-2023 ambulatory Dionne Chambers Other [email or web address] Other Start: 07-26-2023 Office outpatient vi sit 25 minutes Dionne Chambers [facility] [place] Start: 03-30-2023 End: 03-30-2023 ambulatory Dionne Patricia Other [facility] [employer] Other Start: 03-30-2023 Telephone encounter Dionne Patricia [facility] Medicine [place] Start: 03-04-2023 Refill Dian flores MD Work Phone: Urology Comment on above: Refill Request Start: 02-03-2023 ambulatory Dian flores MD Work Phone: Urology Start: 02-03-2023 End: 02-03-2023 Patient encounter procedure Dian Desai MD Work Phone: Urology Comment on above: OAB (overactive blad jose l) (Primary Dx); Obesity, Class III, BMI 40-49.9 (morbid obesity) (HCC); Moderate protein-calorie malnutrition (HCC) Start: 01-31-2023 Telephone encounter Dian montemayor MD Work Phone: [facility] Comment on above: Patient Question (Pt wants an xray?) Start: 01-26-2023 Telephone encounter Dian montemayor MD Work Phone: Urology Comment on above: Patient Question Start: 11-16-2022 End: 11-16-2022 ambulatory Dian Desai MD Work Phone: Urology Comment on above: OAB (overactive blad jose l) (Primary Dx) Start: 11-16-2022 End: 11-16-2022 Telemedicine consultation with patient Dian Desai MD Work Phone: [facility] Start: 11-12-2022 Telephone encounter Dian montemayor MD Work Phone: [facility] Comment on above: Patient Question (Qu estion about having a MRI with her medtronic back implant.) Start: 09-16-2022 Telephone encounter Dian montemayor MD Work Phone: [facility] Comment on above: Patient Question (Ne eds a refill please) Start: 09-10-2022 End: 09-10-2022 ambulatory Dian Desai MD Work Phone: Urology Comment on above: OAB (overactive blad jose l) (Primary Dx) Start: 09-10-2022 End: 09-10-2022 Telemedicine consultation with patient Dian Desai MD Work Phone: [facility] Start: 08-18-2022 End: 08-18-2022 ambulatory DO Dionne Chambers Work Phone: [facility] Work Phone: Start: 08-18-2022 End: 08-18-2022 Discharged Recurring DO Dionne Chambers Work Phone: [facility]-[employer] [address] Start: 08-16-2022 Office outpatient vi sit 15 minutes Dionne Chambers [facility] Start: 08-16-2022 End: 08-16-2022 ambulatory DO Dionne Chambers Work Phone: [facility] Work Phone: Start: 08-16-2022 End: 08-16-2022 Patient encounter procedure DO Dionnereina Brushs Work Phone: [facility]-Lab [place] Work Phone: Start: 08-13-2022 Registered Recurring DO Dionnereina Brushs Work Phone: [facility] [address] Start: 08-12-2022 Registered Recurring DO Dionne Kuns Work Phone: [facility] Start: 08-03-2022 End: 08-03-2022 ambulatory Dionne Chambers Other [email or web address] Other Start: 08-03-2022 Telephone encounter Dionne Chambers [facility] Start: 07-27-2022 End: 07-27-2022 Subsequent hospital visit by physician [facility] Work Phone: Radiology Comment on above: Urinary frequency [R 35.0] Start: 07-27-2022 End: 07-27-2022 Patient encounter procedure Dian Desai MD Work Phone: Urology Comment on above: Urinary frequency (P rimary Dx) Start: 07-15-2022 End: 07-15-2022 ambulatory Dionne Chambers Other [email or web address] Other Start: 07-15-2022 Telephone encounter Dionne Chambers [facility] Medicine [place] Start: 07-13-2022 End: 07-14-2022 ambulatory MD Mohamud Cueto Facility:[facility] Start: 07-06-2022 Telephone encounter Dian montemayor MD Work Phone: [employer] [facility] & Comment on above: Patient Question (Pt returning your call) Start: 07-05-2022 Telephone encounter Dian montemayor MD Work Phone: [employer] [facility] Comment on above: Patient Question (Ca n pt start on her cerebral palsy medication now? Her other question is her lead is not working at all since she fell.) Start: 06-30-2022 Telephone encounter Dian montemayor MD Work Phone: [facility] [facility] Comment on above: Patient Question (St imulator not working well, should she start her solisenacin again. ) Start: 06-24-2022 Telephone encounter Dina montemayor MD Work Phone: [employer] [facility] & Comment on above: Patient Question (Pt says her bandage on her back the top portion came completely off. Not sure what to do. ) Start: 06-21-2022 Telephone encounter Anita ochoa MD Work Phone: Urology Comment on above: Patient Update; Post Op Start: 06-16-[address] DIONNE CHAMBERS Facility: Start: 06-16-2022 Telephone encounter Dian montemayor MD Work Phone: [employer] [facility] & Comment on above: Patient Question (He r back is swollen and painful since her surgery); Post Op Start: 06-11-2022 Registered Recurring DO Dionne Chambers Work Phone: [facility]-[employer] [address] Start: 06-11-2022 End: 06-11-2022 ambulatory DO Dionne Chambers Work Phone: [place] [facility] Work Phone: Start: 06-11-2022 End: 06-11-2022 Discharged Recurring DO Dionne Chambers Work Phone: [facility]-Physical Therapy [address] Start: 06-10-2022 End: 06-10-2022 Admission to establishment Pacc Main 6 Work Phone: [facility] Start: 06-10-2022 End: 06-10-2022 ambulatory Pac [address] 6 Work Phone: Pre Anesthesia Comment on above: Pre-op evaluation (P rimary Dx); Dysuria; Diplegic cerebral palsy (HCC); Mild intermittent asthma, unspecified whether complicated; Class 3 severe obesity without serious comorbidity with body mass index (BMI) of 40.0 to 44.9 in adult, unspecified obesity type (HCC) Start: 06-10-2022 End: 06-10-2022 Preprocedural examination done Pac Main 6 Work Phone: Pre Anesthesia Start: 06-07-2022 End: 06-08-2022 ambulatory Aixa Sánchez Facility:[facility] Start: 05-31-2022 ambulatory Dian flores MD Work Phone: Urology Start: 05-28-2022 End: 05-28-2022 Subsequent hospital visit by physician Sandra Kingsley 1 Work Phone: Radiology Comment on above: Right knee pain, uns pecified chronicity [M25.561] Start: 05-27-2022 End: 05-27-2022 Patient encounter procedure Dian Desai MD Work Phone: Urology Comment on above: OAB (overactive blad jose l) (Primary Dx) Start: 05-11-2022 End: 05-11-2022 ambulatory Dionne Chambers Other [email or web address] Other Start: 05-11-2022 Telephone encounter Dionne Chambers [facility] Start: 05-04-2022 End: 05-04-2022 ambulatory Dionne Chambers Other [email or web address] Other Start: 05-04-2022 Telephone encounter Dionne Chambers [facility] Start: 04-30-2022 End: 04-30-2022 ambulatory Dionne Chambers Other [email or web address] Other Start: 04-30-2022 Office outpatient vi sit 15 minutes Dionne Chambers [facility] Start: 04-30-2022 End: 04-30-2022 Patient encounter procedure DO Dionne Chambers Work Phone: [facility] [place] Start: 04-28-2022 ambulatory Dian flores MD Work Phone: Urology Start: 04-28-2022 End: 04-28-2022 Patient encounter procedure Dian Desai MD Work Phone: Urology Comment on above: OAB (overactive blad jose l) (Primary Dx); Neurogenic bladder Start: 04-16-2022 End: 04-16-2022 Emergency department patient visit Luca Botello Facility:[facility] Start: 04-16-2022 End: 04-16-2022 Emergency department patient visit Luca Botello [facility] Start: 04-16-2022 End: 04-16-[address] DIONNE CHAMBERS Facility: Start: 04-13-2022 End: 04-13-2022 ambulatory Dionne Chambers Other [email or web address] Other Start: 04-13-2022 Office outpatient vi sit 25 minutes Dionne Chambers [facility] [place] Start: 03-29-2022 End: 03-29-2022 ambulatory Dionne Chambers Other [email or web address] Other Start: 03-29-2022 Telephone encounter Dionne Chambers [facility] [place] Start: 03-26-2022 End: 03-26-2022 ambulatory Dionne Chambers Other [email or web address] Other Start: 03-26-2022 Telephone encounter Dionne Chambers [facility] [place] Start: 03-25-2022 End: 03-25-2022 Discharged Recurring DO Dionne Chambers Work Phone: [facility] [employer] [address] Start: 03-08-2022 ambulatory Dionne Chambers Faci lity: Start: 03-08-2022 Office consultation new/estab patient 60 min Dionne Chambers Work Phone: -[facility] 250 DO Work Phone: Start: 02-17-2022 End: 02-17-2022 ambulatory Dionne Chambers Other [email or web address] Other Start: 02-17-2022 Telephone encounter [facility] Start: 02-10-2022 End: 02-11-[address] DIONNE CHAMBERS Facility: Start: 01-22-2022 End: 01-22-2022 ambulatory Dionne Chambers Other [email or web address] Other Start: 01-22-2022 Telephone encounter Dionne Chambers [facility] Start: 01-21-2022 End: 01-21-2022 ambulatory Dionne Chambers Other [email or web address] Other Start: 01-21-2022 Telephone encounter Jossie Stoll MD Work Phone: Rheumatology Comment on above: Orders Patient Question Start: 01-20-2022 End: 01-21-[address] DIONNE CHAMBERS Facility:[facility] Start: 01-19-2022 End: 01-20-[address] DIONNE CHAMBERS Facility:[facility] Start: 01-15-2022 End: 01-15-2022 Patient encounter procedure Jossie Stoll MD Work Phone: Rheumatology Comment on above: Positive KARLIE (antinu clear antibody) (Primary Dx) Start: 01-14-2022 End: 01-15-2022 ambulatory MD Mohamud Cueto [email or web address] Other Start: 01-14-2022 Telephone encounter Dionne Chambers [facility] [place] Start: 01-12-2022 End: 01-12-2022 ambulatory Dionne Chambers Other [email or web address] Other Start: 01-12-2022 Telephone encounter Dionne Chambers [facility] [place] Start: 01-07-2022 End: 01-07-2022 ambulatory Dionne Chambers Other [email or web address] Other Start: 01-07-2022 Office outpatient vi sit 25 minutes Dionne Chambers [facility] [place] Start: 12-08-2021 ambulatory MD Mohamud Cueto Faci lity:[facility] Start: 12-02-2021 End: 12-02-2021 ambulatory Dionne Chambers Other [email or web address] Other Start: 12-02-2021 Telephone encounter Dionne Chambers [facility] [place] Start: 12-01-2021 End: 12-01-2021 ambulatory Dionne Chambers Other [email or web address] Other Start: 12-01-2021 Telephone encounter Dionne Chambers [facility] Start: 11-30-2021 End: 11-30-2021 ambulatory Fatuma Wheeler [email or web address] Other Start: 11-30-2021 Telephone encounter Dionne Chambers [facility] [place] Start: 11-27-2021 End: 11-27-2021 ambulatory Dionne Chambers Other [email or web address] Other Start: 11-27-2021 Telephone encounter Dionne Chambers [facility] [place] Start: 11-26-2021 End: 11-27-[address] DIONNE CHAMBERS Facility: Start: 11-25-2021 End: 11-26-2021 ambulatory Fatuma Wheeler Facility:[facility] Start: 11-25-2021 End: 11-25-2021 Patient encounter procedure Fatuma Wheeler [facility] Start: 11-23-2021 End: 11-23-2021 ambulatory Dionne Chambers Other [email or web address] Other Start: 11-23-2021 Telephone encounter Dionne Chambers [facility] [place] Start: 11-09-2021 End: 11-12-2021 Evaluation and management of inpatient DR KYLEIGH CHAMBERS Facility:[facility] Start: 11-09-2021 End: 11-09-2021 ambulatory Dionne Chambers Other [email or web address] Other Start: 11-09-2021 Telephone encounter Dionne Chambers [facility] [place] Start: 11-06-2021 End: 11-06-2021 ambulatory Dionne Chambers Other [email or web address] Other Start: 11-06-2021 Telephone encounter Dionne Chambers [facility] [place] Start: 11-05-2021 End: 11-05-[address] KYLEIGH CHAMBERS Facility:[facility] Start: 10-30-2021 End: 10-31-[address] KYLEIGH CHAMBERS Facility:[facility] Start: 10-27-2021 End: 10-27-2021 ambulatory Dionne Chambers Other [email or web address] Other Start: 10-27-2021 Telephone encounter Dionne Chambers [facility] [place] Start: 10-19-2021 ambulatory Aixadiane Sánchez Facility:[facility] Start: 10-19-2021 End: 10-20-2021 ambulatory Fatuma M. Lue Facility:[facility] Start: 09-30-2021 ambulatory Fatuma M. Lue Facility:[facility] Start: 09-07-2021 End: 09-07-2021 ambulatory Dionne Chambers Other [email or web address] Other Start: 09-07-2021 Office outpatient vi sit 15 minutes Dionne Chambers [facility] [place] Start: 08-28-2021 ambulatory Aixadiane Sánchez Facility:[facility] Start: 07-28-2021 ambulatory Aixadiane Sánchez Facility:[facility] Start: 07-10-2021 End: 07-11-2021 ambulatory Fatuma M. Lue Facility:[facility] Start: 07-08-2021 End: 07-08-2021 ambulatory Dionne Chambers Other [email or web address] Other Start: 07-08-2021 Telephone encounter Dionne Chambers [facility] [place] Start: 07-01-2021 End: 07-02-2021 ambulatory Fatuma M. Lue Facility:[facility] Start: 06-29-2021 Office outpatient vi sit 15 minutes Dionne Chambers [facility] [place] Start: 06-29-2021 End: 06-30-2021 ambulatory Fatuma M. Lue [email or web address] Other Start: 06-26-2021 End: 06-27-2021 ambulatory Fatuma M. Lue [email or web address] Other Start: 06-26-2021 Telephone encounter Dionne Chambers [facility] [place] Start: 06-22-2021 End: 06-22-2021 ambulatory Dionne Chambers Other [email or web address] Other Start: 06-22-2021 Telephone encounter Dionne Chambers [facility] [place] Start: 06-16-2021 End: 06-16-2021 ambulatory Dionne Gonsaloiman Other [email or web address] Other Start: 06-16-2021 Telephone encounter Dionne Chambers [facility] [place] Start: 06-15-2021 End: 06-15-2021 ambulatory Dionne Gonsaloiman Other [email or web address] Other Start: 06-15-2021 Office outpatient vi sit 25 minutes Dionne Chambers [facility] [place] Start: 06-11-2021 End: 06-11-2021 ambulatory Dionnereina Chambers Other [email or web address] Other Start: 06-11-2021 Telephone encounter Dionne Chambers [facility] [place] Start: 06-08-2021 End: 06-08-2021 ambulatory Dionne Gonsaloiman Other [email or web address] Other Start: 06-08-2021 Telephone encounter Dionne Chambers [facility] [place] Start: 05-27-2021 Telephone encounter Dionne Chambers [facility] [place] Start: 05-19-2021 Telephone encounter Dionne Chambers [facility] Start: 05-15-2021 Telephone encounter Dionne Chambers [facility] [place] Start: 05-12-2021 Office outpatient vi sit 25 minutes Dionne Chambers [facility] [place] Start: 09-20-2019 Patient encounter procedure [facility] Start: 04-03-2019 End: 04-03-2019 Emergency department patient visit PROVIDER NOT IN SYSTEM [facility] Start: 04-03-2019 End: 04-03-2019 Emergency department patient visit Ann Nunez Work Phone: [facility] Emergency Department Comment on above: Acute pyelonephritis (Primary Dx); LLQ abdominal pain; Renal colic Start: 08-18-2018 End: 09-08-2018 Patient encounter procedure PROVIDER UNKNOWN Facility:[facility] Start: 12-29-2017 End: 12-29-2017 Ambulatory SELF REFERRING [facility] Patient encounter status Dionne Chambers Work Phone: [facility] 250 DO Work Phone: Procedures Date Procedure Procedure Detail Performing Clinician Start: 05-07-2025 Urine culture Dionne Chambers DO Work Phone: Start: 02-18-2025 Urine culture Dionne Chambers DO Work Phone: Start: 01-07-2025 Adrenocorticotropic hormone measurement iDonne Chambers DO Work Phone: Comment on above: ACTH reference interval for samples mona ected between 7 and10 AM.Performed at: [address] Director: Chan Bray PhD, Phone: [phone] Start: 01-07-2025 Dehydroepiandrosterone sulfate level Dionne Chambers DO Work Phone: Start: 12-07-2024 Culture bacterial quanttative colony count urine Odette MCKENZIE Work Phone: Start: 12-07-2024 Urine culture Odette Escobedo PA-C Work Phone: Start: 01-05-2024 Mri brain brain stem w/o w/contrast material Ruben Bolden MD Work Phone: Start: 08-18-2023 Duplex scan of lower limb veins DO Dionne Chambers Work Phone: Start: 08-18-2023 Ultrasonography of abdomen DO Dionne Chambers Work Phone: Start: 02-03-2023 Urnls dip stick/tablet reagent auto microscopy Bulk Order Provider Start: 07-27-2022 Radiologic examination pelvis 1/2 views Dian Desai MD Work Phone: Start: 05-28-2022 Radiologic examination knee 1/2 views Chapo Mcknight MD Work Phone: Start: 05-15-2021 Piperacillin/tazobactam Dionne Chambers Other Start: 04-03-2019 CT of urinary tract Federico Andrews Work Phone: Start: 04-03-2019 Choriogonadotropin ( test) [Presence] in Urine Ann Clarosriel Work Phone: Start: 04-03-2019 RAINBOW DRAW Ann Nunez Work Phone: Start: 04-03-2019 URINE LAM CONTAINER Ann Nunez Work Phone: Start: 04-03-2019 Urinalysis Ann Nunez Work Phone: Start: 04-03-2019 Basic metabolic 2000 panel - Serum or Plasma Ann Nunez Work Phone: Start: 04-03-2019 Complete blood count with white cell differential, automated Ann Nunez Work Phone: Start: 04-03-2019 Complete blood count with white cell differential, manual Ann Nunez Work Phone: Start: 04-03-2019 Hepatic function 2000 panel - Serum or Plasma Ann Nunez Work Phone: Start: 04-03-2019 Lipase [Enzymatic activity/volume] in Serum or Plasma Ann Nunez Work Phone: History of operative procedure on knee S/P arthroscopic knee surgery Dionne Drake DO Operative procedure on ankle Dionne Chambers Work Phone: Procedure on ankle Fatuma Wheeler Plan of Treatment Date Care Activity Detail Author Start: 04-21-2033 Urine microalbumin profile DTaP,Tdap,Td Vaccine (8 - Td or Tdap) [facility] Start: 08-21-2025 End: 08-21-2025 Patient encounter procedure 08/21/2025 4:20 PM EST Office Visit Endocrinology [address] [place] [address] Betty Deleon MD [address] [place] [address] insulin resistance Endocrinology Comment on above: insulin resistance Start: 05-16-2025 End: 05-16-2025 Patient encounter procedure 05/16/2025 2:30 PM EDT Office Visit Urology [address] [place] [address] Dian Wiggins MD [address] [place] [address] botox Urology Comment on above: botox Start: 05-14-2025 End: 05-14-2025 Nursing evaluation of patient and report 05/14/2025 2:00 PM EDT Nurse Visit Urology [address] [address] [facility], [facility] [address] [place] [address] OAB (overactive bladder) [N32.81] Urology Comment on above: OAB (overactive bladder) [N32.81] Start: 05-07-2025 Bacteria identified in Urine by Culture Urine Culture [facility] Start: 05-07-2025 Urine culture [facility] Start: 05-02-2025 End: 05-02-2025 Patient encounter procedure Urology Comment on above: botox Seizure-like activit y (HCC) [R56.9] EEG/New Consult Start: 04-24-2025 End: 04-24-2025 Patient encounter procedure Neurology Comment on above: EEG/New Consult Start: 04-24-2025 End: 04-24-2025 Nursing evaluation of patient and report 04/24/2025 9:00 AM EDT Nurse Visit Urology [address] [place] [address] [facility], [facility] [address] [place] [address] OAB (overactive bladder) [N32.81] Urology Comment on above: OAB (overactive bladder) [N32.81] Start: 04-22-2025 End: 04-22-2025 Patient encounter procedure Neurology Comment on above: EEG/New Consult Start: 04-22-2025 End: 04-22-2025 Nursing evaluation of patient and report 04/22/2025 10:00 AM EDT Nurse Visit Urology [address] [address] [facility], [facility] [address] [place] [address] OAB (overactive bladder) [N32.81] Urology Comment on above: OAB (overactive bladder) [N32.81] Start: 04-08-2025 Influenza vaccination Influenza Vaccine (#1) [facility] Start: 03-01-2025 End: 03-01-2025 Follow-up encounter 03/01/2025 3:10 PM EDT [facility] Endocrinology [address] [place] [address] [id number] Charu Martínez MD [address] [place] [id number] follow up - ok by TAYLOR Gongora Endocrinology Comment on above: follow up - ok by TAYLOR Gongora Start: 02-25-2025 End: 02-25-2025 ambulatory 02/25/2025 4:00 PM EDT Distance [facility] Urology [address] [place] [address] Dian Wiggins MD [address] [place] [address] virtual visit Urology Comment on above: virtual visit Start: 02-19-2025 End: 02-19-2025 ambulatory 02/19/2025 12:30 PM EDT Treatment [facility] [address] [place] [phone] Leeanna Wiley, PT [address] [place] [phone] [facility] Start: 02-18-2025 Bacteria identified in Urine by Culture Urine Culture [facility] Start: 02-18-2025 End: 02-18-2025 ambulatory 02/18/2025 1:15 PM EDT Treatment [facility] [address] [place] [address] Leeanna Wiley, PT [address] [place] [address] [facility] Start: 02-18-2025 Urine [facility] Start: 02-15-2025 End: 02-15-2025 ambulatory 02/15/2025 3:30 PM EDT Treatment [facility] [address] [place] [address] Leeanna Wiley, PT [address] [place] [address] [facility] Start: 02-13-2025 End: 02-13-2025 ambulatory 02/13/2025 1:00 PM EDT Treatment [facility] [address] [place] [address] Leeanna Wiley, PT [address] [place] [address] [facility] Start: 02-12-2025 End: 02-12-2025 ambulatory 02/12/2025 2:30 PM EDT Treatment [facility] [address] [place] [address] Leeanna Wiley, PT [address] [place] [address] [facility] Start: 02-11-2025 End: 02-11-2025 ambulatory 02/11/2025 2:00 PM EDT Treatment [facility] [address] [place] [address] Leeanna Wiley, PT [address] [place] [address] [facility] Start: 02-06-2025 End: 02-06-2025 ambulatory 02/06/2025 4:30 PM EDT Treatment [facility] [address] [place] [address] Leeanna Wiley, PT [address] [place] [address] [facility] Start: 02-05-2025 End: 02-05-2025 ambulatory 02/05/2025 4:30 PM EDT Treatment [facility] [address] [place] [address] Leeanna Wiley, PT [address] [place] [address] [facility] Start: 02-04-2025 End: 02-04-2025 ambulatory 02/04/2025 3:00 PM EDT Treatment [facility] [address] [place] [address] Leeanna Wiley, PT [address] [place] [address] [facility] Start: 02-01-2025 End: 02-01-2025 ambulatory 02/01/2025 4:15 PM EDT Treatment [facility] [address] [place] [address] Leeanna Wiley, PT [address] [place] [address] [facility] Start: 01-30-2025 End: 01-30-2025 ambulatory 01/30/2025 2:30 PM EDT Treatment [facility] [address] [place] [address] Leeanna Wiley, PT [address] [place] [address] [facility] Start: 01-24-2025 End: 01-24-2025 ambulatory 01/24/2025 3:00 PM EDT Treatment [facility] [address] [place] [address] Leeanna Wiley, PT [address] [facility] [place] [address] [facility] Start: 01-23-2025 End: 01-23-2025 ambulatory 01/23/2025 3:15 PM EDT [facility] Neurology [address] [place] [address] Deuce Farley, BUSINESS UNIT CONTROLLER.HR RECRUITER [address] [place] [address] Talk about episodes where I lose ability to talk Neurology Comment on above: Talk about episodes where I lose ability to talk Start: 01-22-2025 End: 01-22-2025 ambulatory [facility] Comment on above: Arrived Start: 01-11-2025 End: 01-11-2025 Patient encounter procedure [facility] Comment on above: Arrived Start: 01-07-2025 End: 01-07-2025 Nursing evaluation of patient and report 01/07/2025 2:00 PM EDT Nurse Visit Urology [address] [address] Judy Self, CLE[employer] [address] [address] nurse visit [address] Alessia Desai, pt needed this date not before Urology Comment on above: nurse visit [address] Alessia valerio, pt needed this date not before Start: 01-07-2025 [facility] Start: 01-07-2025 Adrenocorticotropic hormone measurement [facility] Start: 01-07-2025 Dehydroepiandrosterone sulfate level [facility] Start: 01-03-2025 End: 04-04-2025 Hemoglobin A1c in Blood HEMOGLOBIN A1C Lab Routine Abnormal weight gain Expected: 01/03/2025, Expires: 04/04/2025 [facility] Comment on above: Expected: 01/03/2025, Expires: Start: 01-03-2025 End: 04-04-2025 Insulin [Units/volume] in Serum or Plasma INSULIN, TOTAL, SERUM Lab Routine Abnormal weight gain Expected: 01/03/2025, Expires: 04/04/2025 [facility] Comment on above: Expected: 01/03/2025, Expires: Start: 01-03-2025 End: 04-04-2025 Renal function 2000 panel - Serum or Plasma RENAL FUNCTION PANEL Lab Routine Abnormal weight gain Expected: 01/03/2025, Expires: 04/04/2025 [facility] Comment on above: Expected: 01/03/2025, Expires: Start: 01-03-2025 End: 04-04-2025 THYROID PEROXIDASE ANTIBODY 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/03/2025, Expires: 04/04/2025 [facility] Comment on above: Expected: 01/03/2025, Expires: Start: 01-03-2025 End: 04-04-2025 Thyrotropin [Units/volume] in Serum or Plasma THYROID STIMULATING HORMONE Lab Routine Damián's disease Expected: 01/03/2025, Expires: 04/04/2025 [facility] Work Phone: Comment on above: Expected: 01/03/2025, Expires: Start: 01-03-2025 End: 04-04-2025 Thyroxine (T4) free [Mass/volume] in Serum or Plasma T4 FREE/FREE THYROXINE Lab Routine Damián's disease Expected: 01/03/2025, Expires: 04/04/2025 [facility] Comment on above: Expected: 01/03/2025, Expires: Start: 01-02-2025 End: 01-02-2025 ambulatory 01/02/2025 11:20 AM EDT [facility] Endocrinology [address] [place] [address] Charu Martínez MD [address] [place] [address] [phone] 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 Comment on above: 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 Start: 12-19-2024 End: 12-19-2024 Admission to same day surgery center 12/19/2024 2:10 PM EDT - 12/19/2024 3:30 PM EDT Surgery Ambulatory Surgery [address] [place] [address] Dian Wiggins MD [address] [place] [address] CYSTOURETHROSCOPY W/INJECTION(S) FOR CHEMODENERVATION OF THE BLADDER (BOTOX) Ambulatory Surgery Comment on above: CYSTOURETHROSCOPY W/INJECTION(S) FOR JOSE MODENERVATION OF THE BLADDER (BOTOX) Start: 12-19-2024 End: 12-19-2024 Cystourethroscopy inj chemodenervation bladder CYSTOURETHROSCOPY W/INJECTION(S) FOR CHEMODENERVATION OF THE BLADDER Overactive bladder Urinary frequency 12/19/2024 2:10 PM EDT [facility] Start: 12-19-2024 Subsequent hospital visit by physician 12/19/2024 2:10 PM EDT Hospital Encounter Ambulatory Surgery [address] [place] [address] Dian Wiggins MD [address] [place] [address] Overactive bladder [N32.81], Urinary frequency [R35.0] Ambulatory Surgery Comment on above: Overactive bladder [N32.81], Urinary antonio quency [R35.0] Start: 12-12-2024 End: 12-12-2024 Admission to same day surgery center 12/12/2024 10:15 AM EDT - 12/12/2024 11:35 AM EDT Surgery Ambulatory Surgery [address] [place] [address] Dian Wiggins MD [address] [place] [address] CYSTOURETHROSCOPY W/INJECTION(S) FOR CHEMODENERVATION OF THE BLADDER (BOTOX) Ambulatory Surgery Comment on above: CYSTOURETHROSCOPY W/INJECTION(S) FOR JOSE MODENERVATION OF THE BLADDER (BOTOX) Start: 12-12-2024 End: 12-12-2024 Cystourethroscopy inj chemodenervation bladder CYSTOURETHROSCOPY W/INJECTION(S) FOR CHEMODENERVATION OF THE BLADDER Overactive bladder Urinary frequency 12/12/2024 10:15 AM EDT [facility] DANI[facility] Start: 12-12-2024 Subsequent hospital visit by physician 12/12/2024 10:15 AM EDT Hospital Encounter Ambulatory Surgery [address] [place] [address] Dian Wiggins MD [address] [place], [place] [id number] Overactive bladder [N32.81], Urinary frequency [R35.0] Ambulatory Surgery Comment on above: Overactive bladder [N32.81], Urinary antonio quency [R35.0] Start: 12-11-2024 End: 12-11-2024 Anesthesia consultation 12/11/2024 2:20 PM EDT PAT Pre Anesthesia [address] [place] [address] 2, Pacc Bonaparte [address] [facility] [address] DOS: 12/19/2024 DR ALESSIA DANIEL Pre Anesthesia Comment on above: DOS: 12/19/2024 DR ALESSIA DANIEL Start: 12-11-2024 End: 12-11-2024 Anesthesia consultation 12/11/2024 7:40 AM EDT PAT Pre Anesthesia [address] [place] [address] [address] DOS: 12/12/2024 DR ALESSIA DANIEL Pre Anesthesia Comment on above: DOS: 12/12/2024 DR ALESSIA DANIEL Start: 12-07-2024 Urine culture [facility] Start: 12-07-2024 Bacteria identified in Urine by Culture [facility] Start: 12-07-2024 End: 12-07-2024 Patient encounter procedure 12/07/2024 9:45 AM EDT Office Visit [facility] [address] [place] [address] Markie Segura, HAZARDOUS MATERIALS TANKER DRIVER [address] [place] [address] [facility] Start: 11-16-2024 End: 11-16-2024 Patient encounter procedure 11/16/2024 9:00 AM EDT Office Visit [facility] [address] [place] [address] Markie Segura, HAZARDOUS MATERIALS TANKER DRIVER [address] [facility] [place] [address] Arrived [facility] Comment on above: Arrived Start: 11-15-2024 End: 11-15-2024 Patient encounter procedure 11/15/2024 4:00 PM EDT Office Visit Internal Medicine [facility] [place] [address] [place] [address] Gabriela Gao MD [address] [place] [address] Weight loss management for Sera Valladares Internal [facility] [place] [address] Comment on above: Weight loss management for Sera Valladares Start: 2024 HPV Vaccine (1 - 3-dose SCDM series) HPV Vaccine (1 - 3-dose SCDM series) [facility] Start: 09-11-2024 End: 09-11-2024 Patient encounter procedure 09/11/2024 3:00 PM EST Office [place] [address] Not able to schedule a appointment [employer] [facility] Comment on above: Not able to schedule a appointment Start: 09-07-2024 End: 09-07-2024 Follow-up encounter 09/07/2024 9:40 AM EST [facility] Urology [address] [place] [address] Olga Pryor PA-C [address] [place] [address] medication follow up Urology Comment on above: medication follow up Start: 07-18-2024 End: 07-18-2024 Patient encounter procedure 07/18/2024 2:00 PM EST Office Visit [facility] [address] [place] [address] Jr. Hermilo Travis, DO [address] [place] [address] [facility] Start: 04-08-2024 Covid-19 Vaccine ( season) Covid-19 Vaccine ( season) [facility] Start: 04-08-2024 Influenza vaccination [facility] Start: 03-21-2024 End: 03-21-2024 Patient encounter procedure 03/21/2024 9:00 AM EDT Office Visit Neurology [address] [place] [address] Deuce Farley, BUSINESS UNIT CONTROLLER.HR RECRUITER [address] [place] [address] 3 month follow up Neurology Comment on above: 3 month follow up Start: 01-10-2024 End: 01-10-2024 Patient encounter procedure 01/10/2024 9:05 AM EDT Office Visit Podiatry [address] [address] Beena Del Cid, RYAN [address] [place] [address] issues with Toenails are not growing back Podiatry Comment on above: issues with Toenails are not growing casey k Start: 01-05-2024 End: 01-05-2024 Patient encounter procedure 01/05/2024 4:40 PM EDT Appointment MRI Q [address] [address] DUE TO PT IMPLANT- IF APPT NEEDS TO BE RESCHEDULED IT MUST BE SENT TO THE FOLLOWING STAFF MESSAGE ADDRESS: IMAGING IMPLANTS [[id number]]stim approved to schedule by SG. MRI Q Comment on above: DUE TO PT IMPLANT- IF APPT NEEDS TO BE R ESCHEDULED IT MUST BE SENT TO THE FOLLOWING STAFF MESSAGE ADDRESS: IMAGING IMPLANTS [[id number]]stim approved to schedule by SG. Start: 01-03-2024 [facility] Start: 12-20-2023 End: 12-20-2023 Patient encounter procedure 12/20/2023 8:00 AM EDT Office Visit Neurology [address] [place] [address] Ruben Bolden MD [address] [place] [address] Facial Neuralgia left side Neurology Comment on above: Facial Neuralgia left side Start: 12-19-2023 Adrenocorticotropic hormone measurement [facility] Start: 12-19-2023 Dehydroepiandrosterone sulfate level [facility] Start: 12-19-2023 [facility] Start: 10-12-2023 Patient referral [facility] Work Phone: Start: 08-08-2023 Behavioral Health Screening Behavioral Health Screening [facility] Start: 08-08-2023 Depression Assessment Depression Assessment [facility] Start: 04-08-2023 Covid-19 Vaccine () Covid-19 Vaccine ( season) [facility] Start: 04-08-2023 Influenza vaccination [facility] Start: 08-08-2022 DEPRESSION ASSESSMENT DEPRESSION ASSESSMENT [facility] Start: 04-08-2022 Influenza vaccination INFLUENZA (#1) [facility] Start: 10-15-2021 COVID-19 VACCINE (4 - Booster for Pfizer series) COVID-19 VACCINE (4 - Booster for Pfizer series) [facility] Start: 10-15-2021 COVID-19 VACCINE (4 - Pfizer series) COVID-19 VACCINE (4 - Pfizer series) [facility] Start: 08-08-2021 DEPRESSION ASSESSMENT DEPRESSION ASSESSMENT [facility] Start: 02-14-2020 Urine microalbumin profile [facility] Start: 04-08-2019 Influenza vaccination given SEQUENTIAL INFLUENZA VACCINE (#1) [facility] Start: 2018 PAP TESTING PAP TESTING [facility] Start: 2018 Screening for malignant neoplasm of cervix [facility] Start: 2015 ANNUAL PCP TEAM CHRONIC DISEASE VISIT ANNUAL PCP TEAM CHRONIC DISEASE VISIT [facility] Start: 2015 Anxiety Screening Anxiety Screening [facility] Start: 2015 Depression Screening Depression Screening [facility] Start: 2015 HEPATITIS C SCREENING HEPATITIS C SCREENING [facility] Start: 2015 Hepatitis C screening Hepatitis C Screening [facility] Start: 2015 HIV SCREENING HIV SCREENING [facility] Start: 2015 HIV screening HIV Screening [facility] Start: 2015 SPIROMETRY SPIROMETRY [facility] Start: 2012 HPV Vaccine (1 - 3-dose series) HPV Vaccine (1 - 3-dose series) [facility] Start: 2012 Vaccination for human papillomavirus HPV VACCINES (1 - Female 3-dose series) [facility] Start: 2011 PEDS TO ADULT TRANSITION ANNUAL ASSESSMENT PEDS TO ADULT TRANSITION ANNUAL ASSESSMENT [facility] Start: 2009 Adult depression screening assessment DEPRESSION SCREENING [facility] Start: 2009 PEDS TO ADULT TRANSITION INITIAL DISCUSSION PEDS TO ADULT TRANSITION INITIAL DISCUSSION [facility] Start: 2008 HPV VACCINE (1 - 2-dose series) HPV VACCINE (1 - 2-dose series) [facility] Start: 2007 MENINGOCOCCAL B: Consider based on risk (1 of 2 - Risk Bexsero 2-dose series) MENINGOCOCCAL B: Consider based on risk (1 of 2 - Risk Bexsero 2-dose series) [facility] Start: 2006 HPV VACCINE (1 - 2-dose series) HPV VACCINE (1 - 2-dose series) [facility] Start: 2003 PNEUMOCOCCAL (1 - PCV) PNEUMOCOCCAL (1 - PCV) [facility] Start: 2003 Pneumococcal vaccination Pneumococcal Vaccine (1 - PCV) [facility] Start: 2000 History and physical examination, annual for health maintenance Wellness Visit [facility] Start: 1997 Screening for Chlamydia trachomatis Chlamydia Screening [facility] Start: 1997 Screening for malignant neoplasm of cervix PAP SMEAR [facility] Start: 1997 Tetanus vaccination TETANUS EVERY 10 YR [facility] End: 04-03-2019 Bacteria identified Aer cx Nom (Unsp spec) Urine Aerobic Culture Microbiology Routine Once for 1 Occurrences starting 04/03/2019 until 04/03/2019 [facility] Comment on above: Once for 1 Occurrences starting 04/03/20 19 until 04/03/2019 Bacteria identified Aer cx Nom (Unsp spec) Urine Aerobic Culture Microbiology Routine 04/03/2019 4:44 AM EDT [facility] BOTOX/CYSTO BOTOX/CYSTO Proc edures Routine OAB (overactive bladder) Ordered: 02/27/2025 [facility] Work Phone: Comment on above: Ordered: 02/27/2025 Comprehensive metabo lic 1999 panel - Serum or Plasma [facility] Comprehensive metabo lic 1999 panel - Serum or Plasma [facility] EPIL EEG LONG EPIL EEG LONG NE UROLOGY Routine Seizure-like activity (HCC) Ordered: 02/25/2025 [facility] Work Phone: Comment on above: Ordered: 02/25/2025 Glucose measurement estimated from glycated hemoglobin [facility] Glucose measurement estimated from glycated hemoglobin [facility] Hemoglobin A1c/Hemoglobin.total in Blood [facility] Insulin [Units/volum e] in Serum or Plasma [facility] Insulin [Units/volum e] in Serum or Plasma [facility] Insulin [Units/volum e] in Serum or Plasma [facility] Insulin-like growth factor-I [Mass/volume] in Serum or Plasma [facility] Leptin [Mass/volume] in Serum or Plasma [facility] Work Phone: End: 01-18-2025 MR Brain WO and W contrast IV MRI BRAIN WO/W IVCON Radiology Routine Trigeminal neuralgia 1 Occurrences starting 12/20/2023 until 01/18/2025 [facility] Work Phone: Comment on above: 1 Occurrences starting 12/20/2023 until 01/18/2025 End: 01-18-2025 MRA Head vessels WO contrast MRA BRAIN WO IVCON Radiology Routine Trigeminal neuralgia 1 Occurrences starting 12/20/2023 until 01/18/2025 [facility] Comment on above: 1 Occurrences starting 12/20/2023 until 01/18/2025 Patient referral [facility] Work Phone: End: 08-26-2023 Radiologic examination pelvis 1/2 views XR PELVIS 1V AP Radiology Routine Urinary frequency 1 Occurrences starting 07/27/2022 until 08/26/2023 [facility] Work Phone: Comment on above: 1 Occurrences starting 07/27/2022 until 08/26/2023 Radiologic examinati on pelvis 1/2 views XR PELVIS 1V AP Radiology Routine Urinary frequency 07/27/2022 10:43 AM EST [facility] Work Phone: Thyroglobulin Ab [Units/volume] in Serum or Plasma [facility] Thyroglobulin Ab [Units/volume] in Serum or Plasma [facility] Thyroglobulin Ab [Units/volume] in Serum or Plasma [facility] Thyroperoxidase Ab [Units/volume] in Serum or Plasma [facility] Thyroperoxidase Ab [Units/volume] in Serum or Plasma [facility] Thyroperoxidase Ab [Units/volume] in Serum or Plasma [facility] Thyroperoxidase Ab [Units/volume] in Serum or [facility] URINALYSIS, REFLEX MICROSCOPIC URINALYSIS, REFLEX MICROSCOPIC Lab Routine Screening for genitourinary condition Ordered: 04/28/2022 [facility] Work Phone: Comment on above: Ordered: 04/28/2022 URODYNAMICS/FLUOR URODYNAMICS UR ODYNAMICS/FLUOR URODYNAMICS Procedures Routine OAB (overactive bladder) Ordered: 02/27/2025 [facility] Comment on above: Ordered: 02/27/2025 End: 08-26-2023 XR PELVIS 1V LATERAL XR PELVIS 1V LATERAL Radiology Routine Urinary frequency 1 Occurrences starting 07/27/2022 until 08/26/2023 [facility] Work Phone: Comment on above: 1 Occurrences starting 07/27/2022 until 08/26/2023 [facility] Immunizations Immunization Date Immunization Notes Care Provider [facility] 10-02-2024 influenza virus vaccine, unspecified formulation Leeanna Wiley PT Work Phone: [facility] 07-18-2023 influenza virus vaccine, unspecified formulation Sylvia Colbert MD Work Phone: [facility] 06-23-2022 influenza, injectabl e, quadrivalent, preservative free Dionne Chambers Other [facility] 06-23-2022 influenza virus vaccine, unspecified formulation Dian Desai MD Work Phone: [facility] 08-20-2021 COVID-19 Vaccine Pfizer - Documentation Purposes Only Dionne Patricia Other [facility] 08-10-2021 influenza, seasonal, injectable Jossie Stoll MD Work Phone: [facility] 07-21-2021 influenza, injectabl e, quadrivalent, preservative free Jossie Stoll MD Work Phone: [facility] 05-19-2021 influenza nasal, unspecified formulation Jossie Stoll MD Work Phone: [facility] 05-19-2021 influenza virus vaccine, unspecified formulation Fatuma Wheeler [facility] 10-30-2020 COVID-19 Vaccine Pfizer - Documentation Purposes Only Dionne Gonsaloiman Other [email or web address] Other 10-09-2020 COVID-19 Vaccine Pfizer - Documentation Purposes Only Dionne Chambers Other [email or web address] Other 07-06-2020 influenza, seasonal, injectable Dionne Gonsalos Other [facility] 07-06-2020 influenza, injectabl e, quadrivalent, preservative free Jossie Stoll MD Work Phone: [facility] 07-25-2019 influenza, seasonal, injectable Dionne Gonsalos Other [facility] 08-08-2018 influenza, seasonal, injectable Dionne Brushs Other [facility] 05-23-2017 Influenza, injectabl e, Madin Clemencia Canine Kidney, preservative free, quadrivalent Jossie Stoll MD Work Phone: [facility] 05-23-2017 influenza, seasonal, injectable Dionne Chambers Other [facility] 07-17-2015 meningococcal polysaccharide (groups A, C, Y and W-135) diphtheria toxoid conjugate vaccine (MCV4P) Dionne Chambers Other [facility] 05-23-2015 influenza, seasonal, injectable Jossie Stoll MD Work Phone: [facility] 05-30-2014 influenza, seasonal, injectable Jossie Stoll MD Work Phone: [facility] 11-25-2011 hepatitis A vaccine, pediatric/adolescent dosage, 2 dose schedule Dionne Chambers Other [facility] 08-05-2011 influenza, seasonal, injectable Jossie Stoll MD Work Phone: [facility] 05-07-2011 hepatitis A vaccine, pediatric/adolescent dosage, 2 dose schedule Dionne Chambers Other [facility] 07-15-2010 influenza virus vaccine, unspecified formulation Dionne Chambers Work Phone: [place] [address] [place] Work Phone: Comment on above: Series: 07-15-2010 influenza, seasonal, injectable, preservative free Jossie Stoll MD Work Phone: [facility] 03-27-2010 meningococcal polysaccharide (groups A, C, Y and W-135) diphtheria toxoid conjugate vaccine (MCV4P) Dionne Chambers Other [facility] 02-13-2010 tetanus toxoid, reduced diphtheria toxoid, and acellular pertussis vaccine, adsorbed Dionne Chambers Other [facility] 06-26-2009 novel [id number], preservative-free, injectable Jossie Stoll MD Work Phone: [facility] 03-18-2003 diphtheria, tetanus toxoids and acellular pertussis vaccine, unspecified formulation Jossie Stoll MD Work Phone: [facility] 03-18-2003 measles, mumps and rubella virus vaccine Dionne Chambers Other [facility] 03-18-2003 poliovirus vaccine, inactivated Dionne Chambers Other [facility] 03-18-2003 poliovirus vaccine, unspecified formulation DO Dionne Chambers Work Phone: [facility] 04-24-1999 diphtheria, tetanus toxoids and pertussis vaccine Dionne Chambers Other [facility] 04-24-1999 haemophilus influenz ae type b vaccine, conjugate unspecified formulation Jossie Stoll MD Work Phone: [facility] 04-24-1999 varicella virus vaccine Dionne Chambers Other [facility] 12-25-1998 measles, mumps and rubella virus vaccine Dionne Chambers Other [facility] 12-25-1998 poliovirus vaccine, unspecified formulation Jossie Stoll MD Work Phone: [facility] 10-17-1998 varicella virus vaccine Dionne Chambers Other [facility] 05-16-1998 diphtheria, tetanus toxoids and pertussis vaccine Dionne Chambers Other [facility] 05-16-1998 haemophilus influenz ae type b vaccine, conjugate unspecified formulation Jossie Stoll MD Work Phone: [facility] 05-16-1998 hepatitis B vaccine, unspecified formulation Jossie Stoll MD Work Phone: [facility] 03-19-1998 diphtheria, tetanus toxoids and acellular pertussis vaccine, unspecified formulation Jossie Stoll MD Work Phone: [facility] 03-17-1998 haemophilus influenz ae type b vaccine, HbOC conjugate Jossie Stoll MD Work Phone: [facility] 03-17-1998 poliovirus vaccine, unspecified formulation Jossie Stoll MD Work Phone: [facility] 1997 diphtheria, tetanus toxoids and pertussis vaccine Dionne Chambers Other [facility] 1997 haemophilus influenz ae type b vaccine, conjugate unspecified formulation Jossie Stoll MD Work Phone: [facility] 1997 poliovirus vaccine, unspecified formulation Jossie Stoll MD Work Phone: [facility] 1997 hepatitis B vaccine, unspecified formulation Jossie Stoll MD Work Phone: [facility] 1997 hepatitis B vaccine, pediatric or pediatric/adolescent dosage Dionne Chambers Other [facility] Payers Date Payer Category Payer [employer] ( and others) [id number] 01-07-2024 () [id number] 01-07-2024 [employer] ( and others) [id number] 11-16-2023 Government (not [facility] care or Medicaid) [id number] .[id number] 11-16-2023 [employer] ( and others) [id number] 08-08-2020 Private Health Insurance [facility] UMR CHOICE PLUS [id number] 08/08/2020-Present [phone] [address] [address] [place] [address] [facility] [id number] .[id number] 08-08-2020 Private Health Insurance [id number] .[id number] .7.3.932092.315 08-08-2018 Unknown MMO MED MUTUAL S UPERMED PPO xxxxxxxxxxxx 2018-Present [id number] .7.3.628968.315 08-08-2018 Unknown [id number] 09-08-2017 Medicare MEDICARE MEDICAR E A AND B [id number] 09/08/2017-Present [phone] [address] [address] [place] [address] Medicare [id number] 1.2.840.142222.1.13.159.2 .7.3.732004.315 09-08-2017 Medicare [id number]. 1.13.159.2 .7.3.254782.315 09-08-2017 Medicare [id number] 03-20-2017 Unknown 1997 Unknown [id number] 2.16.840.1.853102.3.579.2 .647 1997 Unknown [id number] 2.16.840.1.118552.3.579.2 .902 1997 Unknown [id number] 2.840.1.717474.3.579.2 .900 1997 Unknown [id number] 2.16840.1.048681.3.579.2 .356 1997 Unknown [id number] 2.16.840.1.618380.3.579.2 .727 1997 Unknown [id number] 2.16840.1.707612.3.579.2 .727 1997 Unknown [id number] 2.16.840.1.783820.3.579.2 .727 1997 Unknown [id number] 2.16.840.1.005999.3.579.2 .727 1997 Unknown [id number] 2.16.840.1.137498.3.579.2 .727 1997 Unknown [id number] 2.16.840.1.400718.3.579.2 .727 1997 Unknown [id number] 2.16.840.1.780472.3.579.2 .727 1997 Unknown [id number] 2.16.840.1.098196.3.579.2 .727 1997 Unknown [id number] 2.16.840.1.018366.3.579.2 .727 1997 Unknown [id number] 2.16.840.1.431241.3.579.2 .727 1997 Unknown [id number] 2.16.840.1.859728.3.579.2 .727 1997 Unknown [id number] 2.16.840.1.402096.3.579.2 .593 1997 Unknown [id number] 2.16.840.1.491118.3.579.2 .593 1997 Unknown [id number] 2.16.840.1.753438.3.579.2 .593 1997 Unknown [id number] 2.16.840.1.307620.3.579.2 .593 1997 Unknown [id number] 2.16.840.1.522008.3.579.2 .593 1997 Unknown [id number] 2.16.840.1.717927.3.579.2 .593 1997 Unknown [id number] 2.16.840.1.567516.3.579.2 .593 1997 Unknown [id number] 2.16.840.1.664697.3.579.2 .593 1997 Unknown [id number] 2.16.840.1.476704.3.579.2 .593 1997 Unknown [id number] 2.16.840.1.532963.3.579.2 .196 1997 Unknown [id number] 2.16.840.1.744343.3.579.2 .196 1997 Unknown [id number] 2.16.840.1.255402.3.579.2 .196 1997 Unknown [id number] 2.16.840.1.447255.3.579.2 .718 1997 Unknown [id number] 2.16.840.1.644192.3.579.2 .718 1997 Unknown [id number] 2.16.840.1.851292.3.579.2 .1258 1997 Unknown [id number] 2.16.840.1.513848.3.579.2 .1258 1997 Unknown [id number] 2.16.840.1.247312.3.579.2 .1258 1997 Unknown [id number] 2.16.840.1.525160.3.579.2 .9 1997 Unknown [id number] 2.16.840.1.057844.3.579.2 .1258 1997 Unknown [id number] 2.16.840.1.194751.3.579.2 .1258 1997 Unknown [id number] 2.16.840.1.210298.3.579.2 .125 1997 Unknown [id number] 2.16.840.1.433085.3.579.2 .1258 1997 Unknown [id number] 2.16.840.1.920612.3.579.2 .1259 1997 Unknown [id number] 2.16.840.1.469024.3.579.2 .1259 1997 Unknown [id number] 2.16.840.1.788903.3.579.2 .1258 1997 Unknown [id number] 2.16.840.1.700391.3.579.2 .1258 1997 Unknown [id number] 2.16.840.1.037781.3.579.2 .1258 1997 Unknown [id number] 2.16.840.1.376844.3.579.2 .1258 1997 Unknown [id number] 2.16.840.1.526202.3.579.2 .1258 1997 Unknown [id number] 2.16840.1.308057.3.579.2 .1258 1997 Unknown [id number] 2.840.1.134941.3.579.2 .1258 1997 Unknown [id number] .840.1.692632.3.579.2 .9 08-08-1957 Medicare [id number] 08-08-1957 Self-pay [id number] 08-08-1957 Unknown [id number] 09.23.830.1.858647.19 Medicaid [id number] Unknown Regular Insurance [id number] Unknown HCAP/HFA/FAP Active [id number] Unknown [facility] [id number] Unknown [id number] 2.16840.1.110847.3.579.2 .531 Unknown [id number] 2.840.1.213904.3.579.2 .531 Unknown [id number] 2.16.840.1.479544.3.579.2 .531 Unknown [id number] 2.16.840.1.010573.3.579.2 .531 Unknown [id number] 2.16.840.1.892222.3.579.2 .531 Social History Date Type Detail Facility Start: 04-03-2019 End: 10-12-2023 Tobacco smoking status ORIS Never smoker [facility] Start: 04-03-2019 Alcohol intake Current drinke r of alcohol (finding) [facility] Start: 04-03-2019 Alcohol Comment occasional [facility] Start: 1995 Sex Assigned At Not on file [facility] Start: 01-05-2022 Tobacco smoking status Never [facility] Start: 02-03-2023 End: 08-30-2024 Sex Assigned At Female [facility] Other Start: 01-15-2022 End: 04-28-2022 Tobacco use and exposure Smokeless tobacco non-user [facility] Start: 01-04-2022 End: 06-28-2022 Exposure to SARS-CoV-2 (event) Not sure [facility] Start: 02-03-2023 End: 08-30-2024 No alcohol use No alcohol use [facility] Comment on above: coffee; Start: 1995 Sex Assigned At Female F [facility] Start: 06-11-2022 End: 12-11-2024 Alcohol intake Ex-drinker (finding) [facility] Start: 01-08-2024 End: 01-11-2025 Alcoholic beverage intake Lifetime non-drinker (finding) [facility] Start: 11-25-2023 Gender identity Identifies as female gender (finding) [facility] Start: 12-07-2024 End: 01-09-2025 Sex Female (finding) [facility] Start: 01-09-2025 Never Smoker Never Smoker [facility] Medical Equipment Procedure Code Equipment Code Equipment Origin al Text Equipment Identifier Dates Lead Istm Ssmri 2.16mm [id number] Start: 06-14-2022 Ins Istm Micro S smri Rc Eman Glbl [id number] Start: 06-28-2022 Functional Status Date Assessment Result Facility 04-16-2022 Functional Status N/A [facility] Clinical Notes 06-08-2019 to 05-07-2025 Note Date & Type Note Facility 05-07-2025 Evaluation note Authored May 07, 2025 1:12pm [facility] Work Phone: [phone] 937-826509-30-2025 Evaluation note* Author [facility] Authored May 13, 2025 2: 36pm The above note written by Tello Wilcox [facility] acting as human recorder, note dictated by Dr. Dionne Chambers. Author [facility] Authored May 07, 2025 1:12pm [facility] Work Phone: [phone]) 479-149109-25-2025 NoteHNO ID: [id number] Author: JANI MONTANEZ MD Service: ? Author Type: Physician Type: Progress Notes Filed: 05/02/2025 16:51 Note Text: [facility] Neurological [facility] Patient Name: Vijaya Tinsley Calhoun Date of : 1995 Referring Provider: Joana Grossman [address] [place], [place] [address] [facility] [address] INITIAL EPILEPSY CLINIC NOTE 05/02/2025 1:20 PM CHIEF COMPLAINT: New Patient and Epilepsy HISTORY OF PRESENT ILLNESS Ms. 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 Per brief review of the information available in the EMR: Initially established with [facility]23 with [facility] for recurrent episodes of left sided facial pain. She was diagnosed with chronic tension headache and additional work up was performed to evaluate etiology of the facial pain. MRI/MRA of the brain were unremarkable. She was subsequently diagnosed with trigeminal neuralgia (?unclear if here or with an OSH). She has since followed up with Deuce Farley CNP in the headache center for management of this pain. Patient most recently seen 01/23/25 via VV. At this appointment, she reported three episodes of transient speech loss, with the first occurring in 2023. These were reported as sudden inability to speak lasting 2-3 minutes. She reported zoning out with inability to recall what occurred during the episode. No clear triggers or other associated symptoms. She was referred to epilepsy for additional evaluation. Today, she reports the following: She reports two types of episodes (see below). She has had three of the longer episodes. She will be talking to someone but will suddenly be unable to continue talking. She can recall that someone is talking to her, but she cannot recall what specifically happened. The first one was at least 2 years ago; she cannot recall exactly when. The most recent of this type of episode was about 1-2 years ago. There are no clear triggers. She does feel that it tends to occur when she is over-processing something. She additionally reports mini episodes , that she almost feels are mini-versions of the longer episodes. She is uncertain exactly when they started; probably sometime in her early 20s. She notices that they are very short. She will be thinking of something and suddenly she will not know what she was thinking about or why. These are happening at least weekly. No other associated symptoms. She called her dad, who had witnessed some of the mini episodes. He described that she would be sitting there and talking and she suddenly stops and forgets what she wants to say. He does not notice staring so much. These last only seconds. He has seen this a couple of times. Has not witnessed any abnormal movements or GTC. No episodes of loss of consciousness. No episodes of uncontrollable movements. No jerks. Has never been on a seizure medication. She thinks she may have had an EEG once before but she cannot remember why it was done or what it showed. Denies history of GTC. EPISODE TYPES Type 1: Longer Episode - Onset: Uncertain, at least 2022 if not earlier - Aura: No warning - Description: She will be talking to someone but will suddenly be unable to continue talking. She can recall that someone is talking to her, but she cannot recall what specifically happened. - Duration: Uncertain- feels like minutes but may only be seconds - Post- Ictal: Immediately back to baseline. - Frequency: Three total known, last ~1-2 years and first at least 2 years ago Type 2: Mini Episodes - Onset: Uncertain- early 20s - Aura: No warning - Description: She will be thinking of something and suddenly she will not know what she was thinking about or why. Dad described that she would be sitting there and talking and she suddenly stops and forgets what she wants to say. He does not notice staring. - Duration: Seconds - Post- Ictal: Immediately back to baseline - Frequency: At least weekly. Triggers: None identified Seizure Risk Factors - Complications: No - Developmental Delay: Dad reports some slow development, particularly with walking due to the spastic paraplegia - History of Febrile Seizures: No - Traumatic Brain Injury/Head Trauma: No - Prior MORTGAGE COUNSELOR Infection: No - Prior MORTGAGE COUNSELOR Pathology: No - Family History of Seizures: No PREVIOUS EVALUATIONS ELECTRODIAGNOSTIC - Long EEG 05/02/2025 (CC) Final read pending. (more content not included)...[facility]07-25-2025 NoteHNO ID: [id number] Author: CHARU MARTÍNEZ MD Service: ? Author Type: Physician Type: Progress Notes Filed: 03/01/2025 15:40 Note Text: Endocrinology Virtual Visit Follow up: This is a virtual visit using [employer] Zoom Video Visit. It required patient-provider interaction for the medical decision making as documented below. I have communicated my name and active licensure. The patient's identity and physical location were verified at the time of this visit. Either the patient or their legal underwriting service representative has been informed of the risks and benefits of -- and alternatives to -- treatment through a remote evaluation and consents to proceed with the evaluation remotely. Last visit with me: 01/02/2025 Vijaya Tinsley is a 29 years old female seen for a follow up of insulin resistance. In December 30 - was seen for concerns of Damián thyroid disease. Thyroid function tests done at in May.31 were not convincing. TFTs repeated - normal - no concerns of Damián thyroid disorder for now. Labs revealed possible insulin resistance . AM glucose 95 , insulin : 22.3 FLORENCE IR : 5.2 Suggested to start taking Metformin 500 mg daily with meals to improve insulin resistance. Yesterday, pt. Communicated that she feels nauseous with Metformin. Interval history: Today, virtual follow up done to discuss her concerns. As per her , she tried Metformin with breakfast - felt nauseous. No concerns of abdominal pain / diarrhea for now. Going for a 9 days trip , would like to try again when come back in April 01. HISTORY REVIEWED (electronic chart updated): PAST MEDICAL HISTORY Diagnosis Date Cerebral palsy (HCC) Class 3 severe obesity in adult ([facility]) 06/11/2022 PAST SURGICAL HISTORY Procedure Laterality Date ANKLE SURGERY HX Left Left ankle infection ARTHROTOMY W/MENISCUS REPAIR KNEE 2021 ARTHROTOMY W/MENISCUS REPAIR KNEE 2023 KNEE SURGERY HX Right 11/23/2024 ORAL SURGERY PROCEDURE root canal PAST SURGICAL HISTORY OF bladder stimulator FAMILY HISTORY Problem Relation Age of Onset Anesthesia Problems No Family History Social History Tobacco Use Smoking status: Never Smokeless tobacco: Never Substance Use Topics Alcohol use: Not Currently Drug use: Never Current Outpatient Medications Medication Sig metFORMIN ER (GLUCOPHAGE XR) 500 mg 24 hr tablet Take 1 tablet by mouth daily with breakfast. metFORMIN (GLUCOPHAGE) 500 mg tablet Take 1 tablet by mouth daily with food. tirzepatide, weight loss (ZEPBOUND) 2.5 mg/0.5 mL pen injector Inject 2.5 mg subcutaneously one time a week. No current facility-administered medications for this visit. ALLERGIES Allergen Reactions Grass Pollen-Bermud* Unknown Amoxicillin Diarrhea Vancomycin Hives Burning sensation Cetirizine Hives, Other: See Comments, Rash hives REVIEW OF SYSTEM: As per HPI PHYSICAL EXAMINATION: Vijaya is alert , oriented , in no acute distress. Relevant labs: TSH : 3.61 Free T4 : 0.90 TPO Ab : 14 (reference range 0-34) Glucose: 95 , insulin : 22.3 Most recent GFR > 60 ASSESSMENT AND PLAN: # Thyroid function tests are normal. # Insulin resistance: # Obesity , BMI 46.65 kg/m2 Pt. Would like to try Metformin ER 500 mg once daily in April 01. Suggested to take with meal , never take empty stomach as it can upset GI. Dietitian referral ordered for conservative weight loss. All questions answered. She has scheduled appointment with Betty Deleon MD in Sep 02 for continuity of care. Charu Martínez [facility]07-25-2025 History of Present illness Narrative* Charu Martínez MD - 03/01/2025 3:03 PM EDT Endocrinology Virtual Visit Follow up: This is a virtual visit using [employer] Zoom Video Visit. It required patient- provider interaction for the medical decision making as documented below. I have communicated my name and active licensure. The patient's identity and physical location wereverified at the time of this visit. Either the patient or their legal underwriting service representative has been informed of the risks and benefits of -- and alternatives to -- treatment through a remote evaluation andconsents to proceed with the evaluation remotely. Last visit with me: 01/02/2025 Vijaya Tinlsey is a 29 years old female seen for a follow up of insulin resistance. In December 30 - was seen for concerns of Damián thyroid disease. Thyroid function tests done at in May.31 were not convincing. TFTs repeated - normal - no concerns of Damián thyroid disorder for now. Labs revealed possible insulin resistance . AM glucose 95 , insulin : 22.3 FLORENCE IR : 5.2 Suggested to start taking Metformin 500 mg daily with meals to improve insulin resistance. Yesterday, pt. Communicated that she feels nauseous with Metformin. Interval history: Today, virtual follow up done to discuss her concerns. As per her , she tried Metformin with breakfast - felt nauseous. No concerns of abdominal pain / diarrhea for now. Going for a 9 days trip , would like to try again when come back in April 01. HISTORY REVIEWED (electronic chart updated): PAST MEDICAL HISTORY Diagnosis Date Cerebral palsy (HCC) Class 3 severe obesity in adult (HCC) 06/11/2022 PAST SURGICAL HISTORY Procedure Laterality Date ANKLE SURGERY HX Left Left ankle infection ARTHROTOMY W/MENISCUS REPAIR KNEE 2021 ARTHROTOMY W/MENISCUS REPAIR KNEE 2023 KNEE SURGERY HX Right 11/23/2024 ORAL SURGERY PROCEDURE root canal PAST SURGICAL HISTORY OF bladder stimulator FAMILY HISTORY Problem Relation Age of Onset Anesthesia Problems No Family History Social History Tobacco Use Smoking status: Never Smokeless tobacco: Never Substance Use Topics Alcohol use: Not Currently Drug use: Never Current Outpatient Medications Medication Sig metFORMIN ER (GLUCOPHAGE XR) 500 mg 24 hr tablet Take 1 tablet by mouth daily with breakfast. metFORMIN (GLUCOPHAGE) 500 mg tablet Take 1 tablet by mouth daily with food. tirzepatide, weight loss (ZEPBOUND) 2.5 mg/0.5 mL pen injector Inject 2.5 mg subcutaneously one time a week. No current facility-administered medications for this visit. ALLERGIES Allergen Reactions Grass Pollen-Bermud* Unknown Amoxicillin Diarrhea Vancomycin Hives Burning sensation Cetirizine Hives, Other: See Comments, Rash hives REVIEW OF SYSTEM: As per HPI PHYSICAL EXAMINATION: Vijaya is alert , oriented , in no acute distress. Relevant labs: TSH : 3.61 Free T4 : 0.90 TPO Ab : 14 (reference range 0-34) Glucose: 95 , insulin : 22.3 Most recent GFR > 60 ASSESSMENT & PLAN: # Thyroid function tests are normal. # Insulin resistance: # Obesity , BMI 46.65 kg/m2 Pt. Would like to try Metformin ER 500 mg once daily in April 01. Suggested to take with meal , never take empty stomach as it can upset GI. Dietitian referral ordered for conservative weight loss. All questions answered. She has scheduled appointment with Betty Deleon MD in Sep 02 for continuity of care. Charu Martínez MD [facility] Tele[facility] encounter Note * Telephone Encounter - Jsese Barajas - 02/28/2025 2:37 PM EDT Vijaya called back in. Scheduled a virtual appointment for tomorrow with Dr Martínez at 3:20 pm. Jesse Barajas [facility]07-24-2025 Miscellaneous Notes* Telephone Encounter - Jesse Barajas - 02/28/2025 2:37 PM EDT Vijaya called back in. Scheduled a virtual appointment for tomorrow with Dr Martínez at 3:20 pm. Jesse Barajas * Telephone Encounter - Jose Guadalupe Johnson - 02/26/2025 3:04 PM EDT Metformin is making patient sick .Whould like a different kind of med. If possible. Patient has been identified by name and date of : No Patient phoned to request the following new prescription(s) If there are any questions regarding this prescription request, call on cell at: [phone] (home) [phone] (cell) RX INSTRUCTIONS: Patient aware RX will be sent to pharmacy. No need to notify patient. Requested Prescriptions No prescriptions requested or ordered in this encounter Prescriptions are usually addressed within 24-48 business hours. If patient states they cannot [id number] business hours, please document details. Last 2 Encounter Wt Readings: Date: Wt: 12/11/2024 115.7 kg (255 lb) 12/04/2024 115.7 kg (255 lb 1.2 oz) Last 2 Encounter BP Readings: Date: BP: 12/19/2024 122/58 12/11/2024 132/85 No results found for: TSH No results found for: HBA1C Jose Guadalupe Johnson Metformin is making patient sick .Whould like a different kind of med. If pos [facility] Telephone encounter Note * Telephone Encounter - Katie Warren - 02/27/2025 1:38 PM EDT 02/27 - left detailed vm but some parts cut off [facility]07-23-2025 Miscellaneous Notes* Telephone Encounter - Katie Warren - 02/27/2025 1:38 PM EDT 02/27 - left detailed vm but some parts cut off * Telephone Encounter - Craig Lakhani RN - 02/26/2025 3:57 PM EDT DIANA 02/25/25 * Telephone Encounter - Jenna Valle - 02/26/2025 1:48 PM EDT Pt call to schedule uro dynamic test and botox. She can not get it done until apr in [place] so wants to schedule here. [facility] Telephone encounter Note * Telephone Encounter - Craig Lakhani RN - 02/26/2025 3:57 PM EDT DIANA 02/25/25 [facility]07-22-2025 Telephone encounter Note* Telephone Encounter - Jose Guadalupe Johnson - 02/26/2025 3:04 PM EDT Metformin is making patient sick .Whould like a different kind of med. If possible. Patient has been identified by name and date of : No Patient phoned to request the following new prescription(s) If there are any questions regarding this prescription request, call on cell at: [phone] (home) [phone] (cell) RX INSTRUCTIONS: Patient aware RX will be sent to pharmacy. No need to notify patient. Requested Prescriptions No prescriptions requested or ordered in this encounter Prescriptions are usually addressed within 24-48 business hours. If patient states they cannot [id number] business hours, please document details. Last 2 Encounter Wt Readings: Date: Wt: 12/11/2024 115.7 kg (255 lb) 12/04/2024 115.7 kg (255 lb 1.2 oz) Last 2 Encounter BP Readings: Date: BP: 12/19/2024 122/58 12/11/2024 132/85 No results found for: TSH No results found for: HBA1C Jose Guadalupe Johnson Metformin is making patient sick .Whould like a different kind of med. If pos [facility]07-22-[facility] Telephone encounter Note* Telephone Encounter - Jenna Valle - 02/26/2025 1:48 PM EDT Pt call to schedule uro dynamic test and botox. She can not get it done until apr in [place] so wants to schedule here. [facility]07-21-2025 NoteHNO ID: [id number] Author: JOANA GROSSMAN APRN.CHARLIE Service: ? Author Type: Nurse Practitioner Type: Progress Notes Filed: 02/25/2025 16:45 Note Text: [facility] Review of Records Patient: Vijaya Tinsley Address: [address] [place] [id number] Impression: Review of records for Vijaya Tinsley, a 29 year old female, being referred by Deuce Reno CNP [facility]] to Any Epileptologist for further evaluation and treatment/second opinion. Patient has previously diagnosed seizure like activity. EEG has not been reported. MRI from 2023 reported no abnormalities. Patient has trialed 0 AEDs. VEEG may be indicated for event characterization and diagnostic evaluation to determine best treatment options. As she is reporting 4 total episodes since onset, and has not yet had an EEG, would start with a long EEG and consultation with an Epileptologist Summary: Onset: [id number] Recent Seizure Frequency: 4 total episodes, occur every few months Seizure Description(s) Available: Type A: No warning, loses ability to talk, unaware of what is happening, conscious, stares Duration: 1-2 minutes Current AED(s): None Previous AED(s): None PMH: diplegic cerebral palsy, spasticity, headaches, asthma, urge incontinence s/p bladder stimulator, overactive bladder, POTS, PRIOR EVALUATIONS: [facility] [address] [address] EEG (-): MRI brain wo/w contrast (01/05/2024): No acute intracranial findings. No pathologic enhancement or morphologic distortion of either trigeminal nerve. No evidence of arterial impingement on the trigeminal nerves. Patent intracranial vasculature. No aneurysm is identified. JESSIE Recommendations: - Long EEG, consultation with an Epileptologist - Additional testing to be considered by epilepsy clinicians Signed: Joana Grossman APRN.CNP February 25, [address] Woods for review and recommendations. MD Recommendations (as discussed with Dr. Woods): - Please proceed with the above plan.[facility]07-21-2025 History of Present illness Narrative* Joana Grossman APRN.CHARLIE - 02/25/2025 4:06 PM EDT [facility] Review [facility] Records Patient: Vijaya Tinsley Address: [address] [place] [id number] Impression: Review of records for Vijaya Tinsley, a 29 year old female, being referred by Deuce Reno CNP [[facility]] to Any Epileptologist for further evaluation and treatment/second opinion. Patient has previously diagnosed seizure like activity. EEG has not been reported. MRI from 2023 reported no abnormalities. Patient has trialed 0 AEDs. VEEG may be indicated for event characterization and diagnostic evaluation to determine best treatment options. As she is reporting 4 total episodes since onset, and has not yet had an EEG, would start with a long EEG and consultation with an Epileptologist Summar y: Onset: [id number] Recent Seizure Frequency: 4 total episodes, occur every few months Seizure Description(s) Available: Type A: No warning, loses ability to talk, unaware of what is happening, conscious, stares Duration: 1-2 minutes Current AED(s): None Previous AED(s): None PMH: diplegic cerebral palsy, spasticity, headaches, asthma, urge incontinence s/p bladder stimulator, overactive bladder, POTS, PRIOR EVALUATIONS: [place] [address] EEG (-): MRI brain wo/w contrast (01/05/2024): No acute intracranial findings. No pathologic enhancement or morphologic distortion of either trigeminal nerve. No evidence of arterial impingement on the trigeminal nerves. Patent intracranial vasculature. No aneurysm is identified. JESSIE Recommendations: - Long EEG, consultation with an Epileptologist - Additional testing to be considered by epilepsy clinicians Signed: Joana Grossman APRN.CHARLIE February 25, [address] Woods for review and recommendations. Recommendations (as discussed with Dr. Woods): - Please proceed with the above plan. [facility] Instructions* Patient Instructions* Dian Wiggins MD - 02/25/2025 3:57 PM EDT Images from the original note were not included. [facility] [place] Recurrent UTI Prevention Program: Takes 6 months before it is fully in effect! This is not a treatment program for each time you may get a breakthrough infection in the future orwhile you are waiting for the prevention program to take effect over the next 6 months. Your primary care team will treat any breakthrough infections or provide refills for any of my suggestions below. The following is the recommended treatment to PREVENT recurrent urinary tract infections. 1. Topical estrogen cream for atrophic vaginitis: estrace cream fingertip application every other night 2. Probiotics: take any brand once daily: Try the brand Align but change brands every 6 months 3. A good bowel regimen to promote a BM each day or by every 3rd day 4. D-mannose 2g daily 5. Cranberry supplements 6. In select cases where UTI is related to sexual activity, you may be prescribed a low dose antibiotic to be taken once after sexual activity - You may use AZO as directed as an OTC bladder pain relief when you have a breakthrough UTI; I think aspirin or Motrin/Aleve OTC is useful as well during an active infection - If you think you have a UTI, go to an express care or contact your primary care provider Patient Information: Topical estrogen cream is recommended to restore the vaginal epithelium to its pre menopausal state. With a decrease in estrogen after menopause, the vaginal environment changes. This can lead to increased itchiness, dryness, and irritation. The environment becomes more basic/alkaline to a pH of 6.0 to 7.5. Normally the pH level is around 3.5 to 4.5. A different bacterial sherry then begins to colonize the vagina which can lead to increased urinary tract infections. In order to re-establish the good bacteria sherry, it is important to get the vaginal epithelium back to its pre menopausal state.This can be done with topical estrogen cream. A half to full inch of cream on the tip of the fingerused twice a week can do this. It takes about six months for the environment to become hospitable to good bacteria. During this time your doctor may or may not also prescribe a low dose daily antibiotic to decrease your chance of infections. Common side effects of topical estrogen include discharge, vaginal irritation, burning and itching. If you have irritation, the cream can be ordered through our compounding pharmacy in a different formuation. Rare side effects include breast tenderness, vaginal bleeding or spotting. If you experience these,please stop the cream and tell your provider. Histology slides of vaginal epithelium without estrogen then with estrogen supplementation. Epi stands for epithelium. Progress and Prospects in Treating Postmenopausal Vaginal atrophy. Clinical pharmacology & Therapeutics, Vol 89 Number 1, August 2010 Probiotics also helps in re-establishing the good bacteria in the vaginal sherry. Numerous probiotics are available over the counter to use. This can also help with establishing a good bowel regimen. Given the bowels close proximity to both the vagina and urethra/bladder, it is important to have regular bowel movements to decrease voiding symptoms and also decrease the risk of urinary tract infections. A good bowel regimen help with decreasing colonic sherry in the perineal area. This can be done with stool softeners available over the counter to gentle laxatives such as miralax. documented in this encounter[facility]07-[facility]-2025 NoteHNO ID: [id number] Author: DIAN WIGGINS MD Service: ? Author Type: Physician Type: Progress Notes Filed: 02/25/2025 16:03 Note Text: This is a Virtual Visit. It required [id number] interaction with medical decision making as documented below. I spent a total of 20 minutes on the date of the service which included preparing to see the patient, [id number] patient care, completing clinical documentation, obtaining and/or reviewing separately obtained history, and counseling and educating the patient/family/caregiver. I have communicated my name and active licensure. The patient's identity and physical location were verified at the time of this visit. Either the patient or their legal underwriting service representative has been informed of the risks and benefits of -- and alternatives to -- treatment through a remote evaluation and consents to proceed with the evaluation remotely. [facility]IC[facility] RECONSTRUCTIVE SURGERY HISTORY OF PRESENT ILLNESS: Vijaya Tinsley is a 29 year old female here today for a follow up regarding NGB, OAB s/p SNM s/p botox. S/p cysto, botox (12/19/24). She can't tell if symptoms are improved. She's only had 4 good days . She still reports urgency, UUI. PVR (01/07/25): 4ml She reports having tight butt muscles and she thinks this is the issue. No pelvic pain. Sexually active with no pain with intercourse. Local urologist wanted to do UDS but she hasn't done this. HISTORIES: PAST MEDICAL HISTORY PAST MEDICAL HISTORY Diagnosis Date Cerebral palsy ([facility]) Class 3 severe obesity in adult ([facility]) 06/11/2022 PAST SURGICAL HISTORY PAST SURGICAL HISTORY Procedure Laterality Date ANKLE SURGERY HX Left Left ankle infection ARTHROTOMY W/MENISCUS REPAIR KNEE 2021 ARTHROTOMY W/MENISCUS REPAIR KNEE 2023 KNEE SURGERY HX Right 11/23/2024 ORAL SURGERY PROCEDURE root canal PAST SURGICAL HISTORY OF bladder stimulator FAMILY HISTORY FAMILY HISTORY Problem Relation Age of Onset Anesthesia Problems No Family History SOCIAL HISTORY Social History Tobacco Use Smoking status: Never Smokeless tobacco: Never Substance Use Topics Alcohol use: Not Currently Drug use: Never MEDICATIONS: Current Outpatient Medications Medication Sig metFORMIN (GLUCOPHAGE) 500 mg tablet Take 1 tablet by mouth daily with food. tirzepatide, weight loss (ZEPBOUND) 2.5 mg/0.5 mL pen injector Inject 2.5 mg subcutaneously one time a week. No current facility-administered medications for this visit. CURRENT ALLERGIES: Allergies As of Date: 02/25/2025 Allergen Noted Reaction GRASS POLLEN-BERMUDA, STANDARD 08/08/2008 Unknown AMOXICILLIN 01/15/2022 Diarrhea VANCOMYCIN 06/30/2019 Hives CETIRIZINE 03/16/2013 Hives, Other: See Comments, and Rash Fully Assessed 01/23/2025 PHYSICAL EXAM: Participation of a fellow, resident, medical student, or advanced practice provider student in performing the sensitive examination was discussed with the patient or authorized underwriting service representative. The patient or authorized underwriting service representative has agreed to proceed with the sensitive examination. General: No acute distress, well appearing IMPRESSION: ASSESSMENT/PLAN: 1. Urge incontinence - ICD9: 788.31, ICD10: N39.41 (primary diagnosis) She didn't have any improvement with botox 100units. Option for botox 200units discussed and she would like to proceed with local urologist. We discussed that given that she's refractory to multiple treatment, UDS would also be helpful in elucidating the situation. She is to obtain this with her local urologist. 2. Stress incontinence of urine - ICD9: [id number], ICD10: N39.3 Have not had treatment for this as we were working on UUI. UDS to elucidate clinical situation. 3. Ulisses She is start on cranberry tablets. Handout given. All questions and concerns were addressed. Dian Desai MD [employer] Urology and Urogynecology [facility] [place] History of Present illness Narrative* Dian Wiggins MD - 02/25/2025 3:48 PM EDT This is a Virtual Visit. It required [id number] interaction with medical decision making as documented below. I spent a total of 20 minutes on the date of the service which included preparing to see the patient, [id number] patient care, completing clinical documentation, obtaining and/or reviewing separately obtained history, and counseling and educating the patient/family/caregiver. I have communicated my name and active licensure. The patient's identity and physical location wereverified at the time of this visit. Either the patient or their legal underwriting service representative has been informed of the risks and benefits of -- and alternatives to -- treatment through a remote evaluation andconsents to proceed with the evaluation remotely. [facility] FEMALE PELVIC MEDICINE AND RECONSTRUCTIVE SURGERY HISTORY OF PRESENT ILLNESS: Vijaya Tinsley is a 29 year old female here today for a follow up regarding NGB, OAB s/p SNMs/p botox. S/p cysto, botox (12/19/24). She can't tell if symptoms are improved. She's only had 4 good days . She still reports urgency, UUI. PVR (01/07/25): 4ml She reports having tight butt muscles and she thinks this is the issue. No pelvic pain. Sexually active with no pain with intercourse. Local urologist wanted to do UDS but she hasn't done this. HISTORIES: PAST MEDICAL HISTORY PAST MEDICAL HISTORY Diagnosis Date Cerebral palsy (HCC) Class 3 severe obesity in adult (HCC) 06/11/2022 PAST SURGICAL HISTORY PAST SURGICAL HISTORY Procedure Laterality Date ANKLE SURGERY HX Left Left ankle infection ARTHROTOMY W/MENISCUS REPAIR KNEE 2021 ARTHROTOMY W/MENISCUS REPAIR KNEE 2023 KNEE SURGERY HX Right 11/23/2024 ORAL SURGERY PROCEDURE root canal PAST SURGICAL HISTORY OF bladder stimulator FAMILY HISTORY FAMILY HISTORY Problem Relation Age of Onset Anesthesia Problems No Family History SOCIAL HISTORY Social History Tobacco Use Smoking status: Never Smokeless tobacco: Never Substance Use Topics Alcohol use: Not Currently Drug use: Never MEDICATIONS: Current Outpatient Medications Medication Sig metFORMIN (GLUCOPHAGE) 500 mg tablet Take 1 tablet by mouth daily with food. tirzepatide, weight loss (ZEPBOUND) 2.5 mg/0.5 mL pen injector Inject 2.5 mg subcutaneously one time a week. No current facility-administered medications for this visit. CURRENT ALLERGIES: Allergies As of Date: 02/25/2025 Allergen Noted Reaction GRASS POLLEN-BERMUDA, STANDARD 08/08/2008 Unknown AMOXICILLIN 01/15/2022 Diarrhea VANCOMYCIN 06/30/2019 Hives CETIRIZINE 03/16/2013 Hives, Other: See Comments, and Rash Fully Assessed 01/23/2025 PHYSICAL EXAM: Participation of a fellow, resident, medical student, or advanced practice provider student in performing the sensitive examination was discussed with the patient or authorized underwriting service representative. The patient or authorized underwriting service representative has agreed to proceed with the sensitive examination. General: No acute distress, well appearing IMPRESSION: ASSESSMENT/PLAN: 1. Urge incontinence - ICD9: 788.31, ICD10: N39.41 (primary diagnosis) She didn't have any improvement with botox 100units. Option for botox 200units discussed and she would like to proceed with local urologist. We discussed that given that she's refractory to multiple treatment, UDS would also be helpful in elucidating the situation. She is to obtain this with her local urologist. 2. Stress incontinence of urine - ICD9: [id number], ICD10: N39.3 Have not had treatment for this as we were working on UUI. UDS to elucidate clinical situation. 3. Ulisses She is start on cranberry tablets. Handout given. All questions and concerns were addressed. Dian Desai MD [employer] Urology and Urogynecology [facility] [place] [facility] Telephone encounter Note * Telephone Encounter - Yenny Roger - 02/25/2025 2:02 PM EDT Images from the original note were not included. Patient last seen on 01/23/25 [facility]07-21-2025 Miscellaneous Notes* Telephone Encounter - Yenny Roger - 02/25/2025 2:02 PM EDT Images from the original note were not included. Patient last seen on 01/23/25 documented in [facility] encounter[facility]25 History of Present illness Narrative* Leeanna Wiley PT - 02/18/2025 1:15 PM EDT Images from the original note were not included. Physical Therapy Physical Therapy Treatment Visit Patient Name: Vijaya Tinsley Today's Date: 02/18/2025 Encounter Diagnoses Name Primary? 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 Patient with 3rd right knee arthroscopy with included scar tissue removal and additional meniscectomy per patient reports. Reports that pain never full resolved following 11/17/24 surgery and limited her ability to ambulate on knee due to sharp anterior and medial knee pain. Since surgery notes that pain is improved as compared to presurgical status but reports that the right knee sometimes feels like it is hyperextending and is occasionally unstable. Does reports some fear of falling and has been limiting ambulation due to right knee. Personal goals is to improve ability to ambulate household distances to assist with functional mobility leading to this outpatient PT consultation (01/22/25-DBO) Pain: [place] [facility] [place] to prevent knee hyperextension. Waiting on insurance authorization. Notes decreased pain and improving tolerance to ambulation. Plans to fly back to [place] Tuesday evening. Pain 1-2/10 at pes anserine right medial knee at arrival. 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 Objective: Examination performed on 01/22/25-DBO The patient presents in a wheelchair 60-days post right knee arthroscopy. 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 Generally, utilizes wheelchair for community distance and in home mobility with use of Lofstrand crutches for short distance ambulation. Has been limited to mostly wheelchair mobility since surgery. Was able to ambulate 5-8 feet with FWW/parallel bars at today's PT appointment with complaints of right anterior and medialknee pain with posterior instability. The post-surgical incisions are intact and are fully healing. Pedal pulse is intact with negative DVT screen. Patient denies complications such as fever, chills, night sweats, and infection. Standardpost-surgical precautions of avoiding kneeling, twisting, and undo lateral stresses were reviewed. Supine AROM left knee demonstrates 0-110 degrees motion with minimal edema and no residual ecchymosis. Patient with rather severe extensor spasticity in both LE's. Quadriceps functional strength is rated at 4-/5 with ability to perform SLR without lag with mild decreased in distal quadriceps/VMO contractility. Hamstring strength is functionally 4/5 in available ranges. Hip and foot/ankle mobility and strength is compromised due to underlying neuromuscular condition with moderate extensor tone and spasticity noted. LEFS scores 27.5 indicative of moderate to severe functional impairment consistent with PT examination findings. Plan to follow conservative protocol. 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 Therapy Diagnosis: The patient's primary functional limitation is associated with walking and moving with moderate impairment via LEFS consistent with PT examination findings Functional Limitations: Pain, mild to moderate ROM/Strength deficits, mobility deficits, moderate difficulty with ADL, household management, work, sleep, driving, and recreational pursuits Prior Level of Function ADLs: Independent Recreation: Active Employment: [employer] INTERVENTIONS Manual: Grade I/II patellofemoral mobilization in medial/lateral and superior/inferior direction, gentle flexion/extension knee joint mobilization, and retro STM for promotion of pain/edema reduction, promotion of ROM, and function (15 Min) Therapeutic Exercise: Per Exercise Grid found in patient documents including phase II post-surgicalprotocol of progressive flexibility and supine, sitting, and standing static and dynamic strength and balance program with expected progression to aggressive proprioceptive and strength training toward normalization of function (PRN) Therapeutic Activity: Functional Activity Training (PRN) Neuromuscular Re-education: Quadriceps contractility, balance, proprioception, and stability program (PRN) Gait: Ambulation SBA/Min A 30 feet X3 (15 Min) Modalities: Ultrasound 2 Mhz 1.5 w/cm2 (10 Min to the right knee pes anserine bursa) Aquatic PT: PRN Goals: Short Term Goals: To be met by 03/07/24 The patient to demonstrate 50% reduction in pain to at worst 2-3/10 intensity and intermittent withsuccessful reduction in post-surgical medication to be met in 2-4 weeks The patient to achieve 0-110 degrees AROM in 2 weeks, 0-120 degrees in 4 weeks, and normal pain free ROM by conclusion of PT expected in 4-6 weeks The patient to have 4/5 knee flexion and extension strength in 1-2 weeks and 4+/5 or better strength in 4-6 weeks The patient to be successful with ambulation with Lofstrand crutches 50 feet by conclusion of PT expected in 6-12 weeks. Possible utilization of [place] knee brace to limit knee hyperextension. Patient to be independent with HEP management of this condition and be low fall risk with device byconclusion of PT expected in 6-12 weeks Rehab Potential: Good PT Assessment: The patient has participated in 8 outpatient PT sessions since start of care on 01/22/25 post rightknee arthroscopy performed by Dr Travis on 11/23/24. Did participate in 10 NOMS 360 In-Home sessions 12/05/24-01/14/25. [place] [facility] [place] knee [place] to prevent knee hyperextension. Waiting on insurance authorization. Had [place] taken [place] [facility] [place] to prevent knee hyperextension. Waiting on insurance authorization. Notes decreased pain and improving tolerance to ambulation. Plans to fly back to [place] Tuesday evening. Pain 1-2/10 at pes anserine right medial knee at arrival. 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 Continue per PT POC. Plan: Recommend outpatient PT 2-3 times/week for up to 8-12 weeks per above PT POC pending patient progress and medical necessity standards (01/22/25-DBO) I hereby deem this POC medically necessary. Please sign below and fax back to the number below. Physician Signature: Date: documented in this encounterHawthorn Children's Psych[facility] [id number] NoteHNO ID: [id number] Author: CHARU MARTÍNEZ MD Service: ? Author Type: Physician Type: Progress Notes Filed: 02/15/2025 14:10 Note Text: Lab results received via fax reviewed. TSH : 3.61 Free T4 : 0.90 TPO Ab : 14 (reference range 0-34) ---> no concerns of hypothyroidism / Damián thyroid disorder as per these labs. Glucose: 95 , insulin : 22.3 FLOR[place] IR : 5.2 ---> may have some insulin resistance Most recent GFR > 60 Plan: Will suggest Metformin XR 500 mg daily for insulin resistance / obesity. Return to clinic in 6 months.[facility]07-11-2025 History of Present illness Narrative* Charu Martínez MD - 02/15/2025 2:00 PM EDT Lab results received via fax reviewed. TSH : 3.61 Free T4 : 0.90 TPO Ab : 14 (reference range 0-34) ---> no concerns of hypothyroidism / Damián thyroid disorder as per these labs. Glucose: 95 , insulin : 22.3 FLORENCE IR : 5.2 ---> may have some insulin resistance Most recent GFR > 60 Plan: Will suggest Metformin XR 500 mg daily for insulin resistance / obesity. Return to clinic in 6 months. documented in this encounterOhio [facility] Hospital07-09-2025 History of Present illness Narrative* Leeanna Wiley, PT - 02/13/2025 1:00 PM EDT Images from the original note were not included. Physical Therapy Physical Therapy Treatment Visit Patient Name: Vijaya Tinsley Today's Date: 02/13/2025 Encounter Diagnoses Name Primary? 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 Patient with 3rd right knee arthroscopy with included scar tissue removal and additional meniscectomy per patient reports. Reports that pain never full resolved following 11/17/24 surgery and limited her ability to ambulate on knee due to sharp anterior and medial knee pain. Since surgery notes that pain is improved as compared to presurgical status but reports that the right knee sometimes feels like it is hyperextending and is occasionally unstable. Does reports some fear of falling and has been limiting ambulation due to right knee. Personal goals is to improve ability to ambulate household distances to assist with functional mobility leading to this outpatient PT consultation (01/22/25-DBO) Pain: [place] [facility] [place] to prevent knee hyperextension. Waiting on insurance authorization. Was able to lower Lofstrand crutches 1 notch and ambulate into facility and treatment area without significant pain. Change in height helps to reduce right knee extension moment. Patient will be flying home to [place] next week and is hopeful to have brace and be ambulating of good quality with crutches that time. Pain 2-3/10 at pes anserine right medial knee at arrival. 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 Objective: Examination performed on 01/22/25-[facility] The patient presents in a wheelchair 60-days post right knee arthroscopy. 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 Generally, utilizes wheelchair for community distance and in home mobility with use of Lofstrand crutches for short distance ambulation. Has been limited to mostly wheelchair mobility since surgery. Was able to ambulate 5-8 feet with FWW/parallel bars at today's PT appointment with complaints of right anterior and medialknee pain with posterior instability. The post-surgical incisions are intact and are fully healing. Pedal pulse is intact with negative DVT screen. Patient denies complications such as fever, chills, night sweats, and infection. Standardpost-surgical precautions of avoiding kneeling, twisting, and undo lateral stresses were reviewed. Supine AROM left knee demonstrates 0-110 degrees motion with minimal edema and no residual ecchymosis. Patient with rather severe extensor spasticity in both LE's. Quadriceps functional strength is rated at 4-/5 with ability to perform SLR without lag with mild decreased in distal quadriceps/VMO contractility. Hamstring strength is functionally 4/5 in available ranges. Hip and foot/ankle mobility and strength is compromised due to underlying neuromuscular condition with moderate extensor tone and spasticity noted. LEFS scores 27.5 indicative of moderate to severe functional impairment consistent with PT examination findings. Plan to follow conservative protocol. 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 Therapy Diagnosis: The patient's primary functional limitation is associated with walking and moving with moderate impairment via LEFS consistent with PT examination findings Functional Limitations: Pain, mild to moderate ROM/Strength deficits, mobility deficits, moderate difficulty with ADL, household management, work, sleep, driving, and recreational pursuits Prior Level of Function ADLs: Independent Recreation: Active Employment: [employer] INTERVENTIONS Manual: Grade I/II patellofemoral mobilization in medial/lateral and superior/inferior direction, gentle flexion/extension knee joint mobilization, and retro STM for promotion of pain/edema reduction, promotion of ROM, and function (15 Min) Therapeutic Exercise: Per Exercise Grid found in patient documents including phase II post-surgicalprotocol of progressive flexibility and supine, sitting, and standing static and dynamic strength and balance program with expected progression to aggressive proprioceptive and strength training toward normalization of function (PRN) Therapeutic Activity: Functional Activity Training (PRN) Neuromuscular Re-education: Quadriceps contractility, balance, proprioception, and stability program (PRN) Gait: Ambulation SBA/Min A 30 feet X3 (15 Min) Modalities: Ultrasound 2 Mhz 1.5 w/cm2 (10 Min to the right knee pes anserine bursa) Aquatic PT: PRN Goals: Short Term Goals: To be met by 03/07/24 The patient to demonstrate 50% reduction in pain to at worst 2-3/10 intensity and intermittent withsuccessful reduction in post-surgical medication to be met in 2-4 weeks The patient to achieve 0-110 degrees AROM in 2 weeks, 0-120 degrees in 4 weeks, and normal pain free ROM by conclusion of PT expected in 4-6 weeks The patient to have 4/5 knee flexion and extension strength in 1-2 weeks and 4+/5 or better strength in 4-6 weeks The patient to be successful with ambulation with Lofstrand crutches 50 feet by conclusion of PT expected in 6-12 weeks. Possible utilization of [place] knee brace to limit knee hyperextension. Patient to be independent with HEP management of this condition and be low fall risk with device byconclusion of PT expected in 6-12 weeks Rehab Potential: Good PT Assessment: The patient has participated in 7 outpatient PT sessions since start of care on 01/22/25 post rightknee arthroscopy performed by Dr Travis on 11/23/24. Did participate in 10 NOMS 360 In-Home sessions 12/05/24-01/14/25. [place] [facility] [place] to prevent knee hyperextension. Waiting on insurance authorization. Pain 2-3/10 at pes anserine right medial knee at arrival.Post session 010 and was able to do truck transfer with step stool with minimal assist. Patient with initial injury April 21, 2023 when she was utilizing custom wheelchair in parking lot. Chair front lola wheel fell into circular open area in [place] resulting in hard fall forward including right knee damage. Resulted in this PT episode and 2-prior surgical events. Discussed and reviewed biomechanics of right knee hyperextension moment which results in pain. Discussed [place] knee brace. Patient motivate to obtain knee brace if insurance approves. [place] knee extension brace is necessary to prevent right knee hyperextension and reduce anterior knee compression moment that will enable improved ambulation quality and endurance. Good progress in the last week. Continue per PT POC. Plan: Recommend outpatient PT 2-3 times/week for up to 8-12 weeks per above PT POC pending patient progress and medical necessity standards (01/22/25-DBO) I hereby deem this POC medically necessary. Please sign below and fax back to the number below. Physician Signature: Date: documented in this encounterHawthorn Children's Psychiatric [id number] History of Present illness Narrative* Leeanna Wiley, PT - 02/12/2025 2:30 PM EDT Images from the original note were not included. Physical Therapy Physical Therapy Treatment Visit Patient Name: Vijaya Tinsley Today's Date: 02/12/2025 Encounter Diagnoses Name Primary? 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 Patient with 3rd right knee arthroscopy with included scar tissue removal and additional meniscectomy per patient reports. Reports that pain never full resolved following 11/17/24 surgery and limited her ability to ambulate on knee due to sharp anterior and medial knee pain. Since surgery notes that pain is improved as compared to presurgical status but reports that the right knee sometimes feels like it is hyperextending and is occasionally unstable. Does reports some fear of falling and has been limiting ambulation due to right knee. Personal goals is to improve ability to ambulate household distances to assist with functional mobility leading to this outpatient PT consultation (01/22/25-DBO) Pain: Had [place] [facility] [place] to prevent knee hyperextension. Waiting on insurance authorization. Was able to lower Lofstrand crutches 1 notch and ambulate into facility and treatment area without significant pain. Change in height helps to reduce right knee extension moment. Patient will be flying home to [place] next week and is hopeful to have brace and be ambulating of good quality with crutches y that time. Objective: Examination performed on 01/22/25-DBO The patient presents in a wheelchair 60-days post right knee arthroscopy. 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 Generally, utilizes wheelchair for community distance and in home mobility with use of Lofstrand crutches for short distance ambulation. Has been limited to mostly wheelchair mobility since surgery. Was able to ambulate 5-8 feet with FWW/parallel bars at today's PT appointment with complaints of right anterior and medialknee pain with posterior instability. The post-surgical incisions are intact and are fully healing. Pedal pulse is intact with negative DVT screen. Patient denies complications such as fever, chills, night sweats, and infection. Standardpost-surgical precautions of avoiding kneeling, twisting, and undo lateral stresses were reviewed. Supine AROM left knee demonstrates 0-110 degrees motion with minimal edema and no residual ecchymosis. Patient with rather severe extensor spasticity in both LE's. Quadriceps functional strength is rated at 4-/5 with ability to perform SLR without lag with mild decreased in distal quadriceps/VMO contractility. Hamstring strength is functionally 4/5 in available ranges. Hip and foot/ankle mobility and strength is compromised due to underlying neuromuscular condition with moderate extensor tone and spasticity noted. LEFS scores 27.5 indicative of moderate to severe functional impairment consistent with PT examination findings. Plan to follow conservative protocol. 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 Therapy Diagnosis: The patient's primary functional limitation is associated with walking and moving with moderate impairment via LEFS consistent with PT examination findings Functional Limitations: Pain, mild to moderate ROM/Strength deficits, mobility deficits, moderate difficulty with ADL, household management, work, sleep, driving, and recreational pursuits Prior Level of Function ADLs: Independent Recreation: Active Employment: [employer] INTERVENTIONS Manual: Grade I/II patellofemoral mobilization in medial/lateral and superior/inferior direction, gentle flexion/extension knee joint mobilization, and retro STM for promotion of pain/edema reduction, promotion of ROM, and function (15 Min) Therapeutic Exercise: Per Exercise Grid found in patient documents including phase II post-surgicalprotocol of progressive flexibility and supine, sitting, and standing static and dynamic strength and balance program with expected progression to aggressive proprioceptive and strength training toward normalization of function (PRN) Therapeutic Activity: Functional Activity Training (PRN) Neuromuscular Re-education: Quadriceps contractility, balance, proprioception, and stability program (PRN) Gait: Ambulation SBA/Min A 30 feet X3 (15 Min) Modalities: Ultrasound 2 Mhz 1.5 w/cm2 (10 Min to the right knee pes anserine bursa) Aquatic PT: PRN Goals: Short Term Goals: To be met by 03/07/24 The patient to demonstrate 50% reduction in pain to at worst 2-3/10 intensity and intermittent withsuccessful reduction in post-surgical medication to be met in 2-4 weeks The patient to achieve 0-110 degrees AROM in 2 weeks, 0-120 degrees in 4 weeks, and normal pain free ROM by conclusion of PT expected in 4-6 weeks The patient to have 4/5 knee flexion and extension strength in 1-2 weeks and 4+/5 or better strength in 4-6 weeks The patient to be successful with ambulation with Lofstrand crutches 50 feet by conclusion of PT expected in 6-12 weeks. Possible utilization of [place] knee brace to limit knee hyperextension. Patient to be independent with HEP management of this condition and be low fall risk with device byconclusion of PT expected in 6-12 weeks Rehab Potential: Good PT Assessment: The patient has participated in 6 outpatient PT sessions since start of care on 01/22/25 post rightknee arthroscopy performed by Dr Travis on 11/23/24. Did participate in 10 [facility] 360 In-Home sessions 12/05/24-01/14/25. [place] [facility] [place] to prevent knee hyperextension. Waiting on insurance authorization. Was able to lower Lofstrand crutches 1 notch and ambulateinto facility and treatment area without significant pain. Change in height helps to reduce right knee extension moment. Patient will be flying home to [place] next week and is hopeful to have braceand be ambulating of good quality with crutches y that time. Patient with initial injury April 21, 2023 when she was utilizing custom wheelchair in parking lot. Chair front lola wheel fell into circular open area in [place] resulting in hard fall forward including right knee damage. Resulted in this PT episode and 2-prior surgical events. Discussed and reviewed biomechanics of right knee hyperextension moment which results in pain. Discussed [place] knee brace. Patient motivate to obtain knee brace if insurance approves. [place] knee extension brace is necessary to prevent right knee hyperextension and reduce anterior knee compression moment that will enable improved ambulation quality and endurance. Good progress in the last week. Continue per PT POC. Plan: Recommend outpatient PT 2-3 times/week for up to 8-12 weeks per above PT POC pending patient progress and medical necessity standards (01/22/25-DBO) I hereby deem this POC medically necessary. Please sign below and fax back to the number below. Physician Signature: Date: documented in this encounterHawthorn Children's Psychiatric [id number] History of Present illness Narrative* Leeanna Wiley PT - 02/11/2025 2:00 PM EDT Images from the original note were not included. Physical Therapy Physical Therapy Treatment Visit Patient Name: Vijaya Tinsley Today's Date: 02/11/2025 Encounter Diagnoses Name Primary? 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 Patient with 3rd right knee arthroscopy with included scar tissue removal and additional meniscectomy per patient reports. Reports that pain never full resolved following 11/17/24 surgery and limited her ability to ambulate on knee due to sharp anterior and medial knee pain. Since surgery notes that pain is improved as compared to presurgical status but reports that the right knee sometimes feels like it is hyperextending and is occasionally unstable. Does reports some fear of falling and has been limiting ambulation due to right knee. Personal goals is to improve ability to ambulate household distances to assist with functional mobility leading to this outpatient PT consultation (01/22/25-DBO) Pain: Reports initial promising results from first 2-3 sessions is regressing. Pain and tenderness to palpation now more medially and at distal HS attachment and medical joint line. Ambulation with Lofstrand crutches remains difficult due to pain. Patient referral for [place] Knee Cage/Brace to prevent knee hyperextension has been forwarded to [facility] [place], [facility] where patient will be doing brace measures tomorrow morning pending insurance approval. Objective: Examination performed on 01/22/25-[facility] The patient presents in a wheelchair 60-days post right knee arthroscopy. 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 Generally, utilizes wheelchair for community distance and in home mobility with use of Lofstrand crutches for short distance ambulation. Has been limited to mostly wheelchair mobility since surgery. Was able to ambulate 5-8 feet with FWW/parallel bars at today's PT appointment with complaints of right anterior and medialknee pain with posterior instability. The post-surgical incisions are intact and are fully healing. Pedal pulse is intact with negative DVT screen. Patient denies complications such as fever, chills, night sweats, and infection. Standardpost-surgical precautions of avoiding kneeling, twisting, and undo lateral stresses were reviewed. Supine AROM left knee demonstrates 0-110 degrees motion with minimal edema and no residual ecchymosis. Patient with rather severe extensor spasticity in both LE's. Quadriceps functional strength is rated at 4-/5 with ability to perform SLR without lag with mild decreased in distal quadriceps/VMO contractility. Hamstring strength is functionally 4/5 in available ranges. Hip and foot/ankle mobility and strength is compromised due to underlying neuromuscular condition with moderate extensor tone and spasticity noted. LEFS scores 27.5 indicative of moderate to severe functional impairment consistent with PT examination findings. Plan to follow conservative protocol. 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 Therapy Diagnosis: The patient's primary functional limitation is associated with walking and moving with moderate impairment via LEFS consistent with PT examination findings Functional Limitations: Pain, mild to moderate ROM/Strength deficits, mobility deficits, moderate difficulty with ADL, household management, work, sleep, driving, and recreational pursuits Prior Level of Function ADLs: Independent Recreation: Active Employment: [employer] INTERVENTIONS Manual: Grade I/II patellofemoral mobilization in medial/lateral and superior/inferior direction, gentle flexion/extension knee joint mobilization, and retro STM for promotion of pain/edema reduction, promotion of ROM, and function (15 Min) Therapeutic Exercise: Per Exercise Grid found in patient documents including phase II post-surgicalprotocol of progressive flexibility and supine, sitting, and standing static and dynamic strength and balance program with expected progression to aggressive proprioceptive and strength training toward normalization of function (PRN) Therapeutic Activity: Functional Activity Training (PRN) Neuromuscular Re-education: Quadriceps contractility, balance, proprioception, and stability program (PRN) Gait: Ambulation SBA/Min A 30 feet X3 (15 Min) Modalities: Ultrasound 2 Mhz 1.5 w/cm2 (10 Min to the right knee pes anserine bursa) Aquatic PT: PRN Goals: Short Term Goals: To be met by 03/07/24 The patient to demonstrate 50% reduction in pain to at worst 2-3/10 intensity and intermittent withsuccessful reduction in post-surgical medication to be met in 2-4 weeks The patient to achieve 0-110 degrees AROM in 2 weeks, 0-120 degrees in 4 weeks, and normal pain free ROM by conclusion of PT expected in 4-6 weeks The patient to have 4/5 knee flexion and extension strength in 1-2 weeks and 4+/5 or better strength in 4-6 weeks The patient to be successful with ambulation with Lofstrand crutches 50 feet by conclusion of PT expected in 6-12 weeks. Possible utilization of [place] knee brace to limit knee hyperextension. Patient to be independent with HEP management of this condition and be low fall risk with device byconclusion of PT expected in 6-12 weeks Rehab Potential: Good PT Assessment: The patient has participated in 5 outpatient PT sessions since start of care on 01/22/25 post rightknee arthroscopy performed by Dr Travis on 11/23/24. Did participate in 10 [facility] 360 In-Home sessions 12/05/24-01/14/25. Reports initial promising results from first 2-3 sessions is regressing. Painand tenderness to palpation now more medially and at distal HS attachment and medical joint line. Ambulation with Lofstrand crutches remains difficult due to pain. Patient referral for [place] Knee Cage/Brace to prevent knee hyperextension has been forwarded to [facility], [facility] where patient will be doing brace measures tomorrow morning pending insurance approval. Patient with initial injury April 21, 2023 when she was utilizing custom wheelchair in parking lot. Chair front lola wheel [place] [facility] [facility] [place] in [place] fall forward including right knee damage. Resulted in this PT episode and 2-prior surgical events. Discussed and reviewed biomechanics of right knee hyperextension moment which results in pain. Discussed [place] knee brace. Patient motivate to obtain knee brace if insurance approves. [place] knee extension brace is necessary to prevent right knee hyperextension and reduce anterior knee compression moment that will enable improved ambulation quality and endurance. Demonstrates swelling and point tenderness medical inferior knee in the region of the Pes Anserine bursa. Utilized Ultrasound, manual therapy techniques, and neuromuscular re-education to reduce inflammation in that distribution. Bursitis is a direct complication of injury and post surgical status. Continue per PT POC. Plan: Recommend outpatient PT 2-3 times/week for up to 8-12 weeks per above PT POC pending patient progress and medical necessity standards (01/22/25-DBO) I hereby deem this POC medically necessary. Please sign below and fax back to the number below. Physician Signature: Date: documented in this encounterHawthorn Children's Psychiatric [id number] History of Present illness Narrative* Leeanna Wiley, PT - 02/06/2025 4:30 PM EDT Images from the original note were not included. Physical Therapy Physical Therapy Treatment Visit Patient Name: Vijaya Tinsley Today's Date: 02/06/2025 Encounter Diagnoses Name Primary? 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 Patient with 3rd right knee arthroscopy with included scar tissue removal and additional meniscectomy per patient reports. Reports that pain never full resolved following 11/17/24 surgery and limited her ability to ambulate on knee due to sharp anterior and medial knee pain. Since surgery notes that pain is improved as compared to presurgical status but reports that the right knee sometimes feels like it is hyperextending and is occasionally unstable. Does reports some fear of falling and has been limiting ambulation due to right knee. Personal goals is to improve ability to ambulate household distances to assist with functional mobility leading to this outpatient PT consultation (01/22/25-DBO) Pain: Reports pain 75% reduced since last session that focused on pes anserine bursitis. Patient able to ambulate at home with forearm crutches. Pleased and grateful for pain reduction Objective: Examination performed on 01/22/25-DBO The patient presents in a wheelchair 60-days post right knee arthroscopy. 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 Generally, utilizes wheelchair for community distance and in home mobility with use of Lofstrand crutches for short distance ambulation. Has been limited to mostly wheelchair mobility since surgery. Was able to ambulate 5-8 feet with FWW/parallel bars at today's PT appointment with complaints of right anterior and medialknee pain with posterior instability. The post-surgical incisions are intact and are fully healing. Pedal pulse is intact with negative DVT screen. Patient denies complications such as fever, chills, night sweats, and infection. Standardpost-surgical precautions of avoiding kneeling, twisting, and undo lateral stresses were reviewed. Supine AROM left knee demonstrates 0-110 degrees motion with minimal edema and no residual ecchymosis. Patient with rather severe extensor spasticity in both LE's. Quadriceps functional strength is rated at 4-/5 with ability to perform SLR without lag with mild decreased in distal quadriceps/VMO contractility. Hamstring strength is functionally 4/5 in available ranges. Hip and foot/ankle mobility and strength is compromised due to underlying neuromuscular condition with moderate extensor tone and spasticity noted. LEFS scores 27.5 indicative of moderate to severe functional impairment consistent with PT examination findings. Plan to follow conservative protocol. 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 Therapy Diagnosis: The patient's primary functional limitation is associated with walking and moving with moderate impairment via LEFS consistent with PT examination findings Functional Limitations: Pain, mild to moderate ROM/Strength deficits, mobility deficits, moderate difficulty with ADL, household management, work, sleep, driving, and recreational pursuits Prior Level of Function ADLs: Independent Recreation: Active Employment: [employer] INTERVENTIONS Manual: Grade I/II patellofemoral mobilization in medial/lateral and superior/inferior direction, gentle flexion/extension knee joint mobilization, and retro STM for promotion of pain/edema reduction, promotion of ROM, and function (15 Min) Therapeutic Exercise: Per Exercise Grid found in patient documents including phase II post-surgicalprotocol of progressive flexibility and supine, sitting, and standing static and dynamic strength and balance program with expected progression to aggressive proprioceptive and strength training toward normalization of function (PRN) Therapeutic Activity: Functional Activity Training (PRN) Neuromuscular Re-education: Quadriceps contractility, balance, proprioception, and stability program (PRN) Gait: Ambulation SBA/Min A 30 feet X3 (15 Min) Modalities: Ultrasound 2 Mhz 1.5 w/cm2 (10 Min to the right knee pes anserine bursa) Aquatic PT: PRN Goals: Short Term Goals: To be met by 03/07/24 The patient to demonstrate 50% reduction in pain to at worst 2-3/10 intensity and intermittent withsuccessful reduction in post-surgical medication to be met in 2-4 weeks The patient to achieve 0-110 degrees AROM in 2 weeks, 0-120 degrees in 4 weeks, and normal pain free ROM by conclusion of PT expected in 4-6 weeks The patient to have 4/5 knee flexion and extension strength in 1-2 weeks and 4+/5 or better strength in 4-6 weeks The patient to be successful with ambulation with Lofstrand crutches 50 feet by conclusion of PT expected in 6-12 weeks. Possible utilization of [place] knee brace to limit knee hyperextension. Patient to be independent with HEP management of this condition and be low fall risk with device byconclusion of PT expected in 6-12 weeks Rehab Potential: Good PT Assessment: The patient has participated in 4 outpatient PT sessions since start of care on 01/22/25 post rightknee arthroscopy performed by Dr Travis on 11/23/24. Did participate in 10 [facility] 360 In-Home sessions 12/05/24-01/14/25. Reports pain 75% reduced since last session that focused on pes anserine bursitis. Patient able to ambulate at home with forearm crutches. Pleased and grateful for pain reduction Patient with initial injury April 21, 2023 when she was utilizing custom wheelchair in parking lot. Chair front lola wheel [place] [facility] [facility] [place] in hard fall forward including right knee damage. Resulted in this PT episode and 2-prior surgical events. Discussed and reviewed biomechanics of right knee hyperextension moment which results in pain. Discussed [place] knee brace. Patient motivate to obtain knee brace if insurance approves. [place] knee extension brace is necessary to prevent right knee hyperextension and reduce anterior knee compression moment that will enable improved ambulation quality and endurance. Demonstrates swelling and point tenderness medical inferior knee in the region of the Pes Anserine bursa. Utilized Ultrasound, manual therapy techniques, and neuromuscular re-education to reduce inflammation in that distribution. Bursitis is a direct complication of injury and post surgical status.Sent this note to referring for review and co-signature with recommendation to proceed with Swedish[place]nee brace to prevent knee posterior instability. Continue per PT POC. Plan: Recommend outpatient PT 2-3 times/week for up to 8-12 weeks per above PT POC pending patient progress and medical necessity standards (01/22/25-DBO) I hereby deem this POC medically necessary. Please sign below and fax back to the number below. Physician Signature: Date: documented in this encounterNOMS [id number] History of Present illness Narrative* Leeanna Wiley, PT - 02/05/2025 10:43 PM EDT MarkieVijaya is currently receiving PT at [facility] S/P 11/23/24 right knee arthroscopy (3rd arthroscopy) with Dr Travis. Patient with underlying CP causing moderate to severe extensorspasticity bilateral lower extremities. Has been having difficulty with ambulation post most recentright knee scopes due to persistent anterior and medial right knee pain during attempts to ambulatewith Lofstrand crutches. Chronic spasticity has led to posterior instability worse on the right knee. This is causing chronic irritation to the medial knee. Patient is appropriate for [place] Style Knee Cage/Brace. 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 Thanks Much, Leeanna Wiley, PT documented in this [facility]06-30-2025 History of Present illness Narrative* Leeanna Wiley, PT - 02/04/2025 3:00 PM EDT Images from the original note were not included. Physical Therapy Physical Therapy Treatment Visit Patient Name: Vijaya Tinsley Today's Date: 02/04/2025 Encounter Diagnoses Name Primary? Difficulty walking Yes Acute postoperative pain of right knee Time In: 3:00 pm Time Out: 4:00 pm Supervised Time: 60 Min Total Time: 60 Min Visit: 12 (Visits Based on Medical Necessity; Participated in 10 In-Home Visits under the supervision of Parker Queen, NURA -01/14/25) Chief Complaint: S/P 11/23/24 right knee arthroscopy (3rd arthroscopy with most recent 11/18/23) Difficulty with ambulation/Transfers PRECAUTIONS: High fall risk; Underlying neuromuscular disease similar to moderate to severe CP affecting LE's Subjective History: 29 yo female presents to outpatient PT per referral of surgeon Hermilo Travis Jr, DO following completion of 10 In-Home sessions under the supervision of Parker Queen, PT. Patient with 3rd right knee arthroscopy with included scar tissue removal and additional meniscectomy per patient reports. Reports that pain never full resolved following 11/17/24 surgery and limited her ability to ambulate on knee due to sharp anterior and medial knee pain. Since surgery notes that pain is improved as compared to presurgical status but reports that the right knee sometimes feels like it is hyperextending and is occasionally unstable. Does reports some fear of falling and has been limiting ambulation due to right knee. Personal goals is to improve ability to ambulate household distances to assist with functional mobility leading to this outpatient PT consultation (01/22/25-DBO) Pain: Reports pain up to 50-75% reduced for several hours/days post initial session. Was successfulin progressive use of Lofstrand crutches. Increased ability to ambulate. Continued discussion of [place] Knee brace to prevent right knee hyperextension moment. Objective: Examination performed on 01/22/25-DBO The patient presents in a wheelchair 60-days post right knee arthroscopy. 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 Generally, utilizes wheelchair for community distance and in home mobility with use of Lofstrand crutches for short distance ambulation. Has been limited to mostly wheelchair mobility since surgery. Was able to ambulate 5-8 feet with FWW/parallel bars at today's PT appointment with complaints of right anterior and medialknee pain with posterior instability. The post-surgical incisions are intact and are fully healing. Pedal pulse is intact with negative DVT screen. Patient denies complications such as fever, chills, night sweats, and infection. Standardpost-surgical precautions of avoiding kneeling, twisting, and undo lateral stresses were reviewed. Supine AROM left knee demonstrates 0-110 degrees motion with minimal edema and no residual ecchymosis. Patient with rather severe extensor spasticity in both LE's. Quadriceps functional strength is rated at 4-/5 with ability to perform SLR without lag with mild decreased in distal quadriceps/VMO contractility. Hamstring strength is functionally 4/5 in available ranges. Hip and foot/ankle mobility and strength is compromised due to underlying neuromuscular condition with moderate extensor tone and spasticity noted. LEFS scores 27.5 indicative of moderate to severe functional impairment consistent with PT examination findings. Plan to follow conservative protocol. 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 Therapy Diagnosis: The patient's primary functional limitation is associated with walking and moving with moderate impairment via LEFS consistent with PT examination findings Functional Limitations: Pain, mild to moderate ROM/Strength deficits, mobility deficits, moderate difficulty with ADL, household management, work, sleep, driving, and recreational pursuits Prior Level of Function ADLs: Independent Recreation: Active Employment: [employer] INTERVENTIONS Manual: Grade I/II patellofemoral mobilization in medial/lateral and superior/inferior direction, gentle flexion/extension knee joint mobilization, and retro STM for promotion of pain/edema reduction, promotion of ROM, and function (15 Min) Therapeutic Exercise: Per Exercise Grid found in patient documents including phase II post-surgicalprotocol of progressive flexibility and supine, sitting, and standing static and dynamic strength and balance program with expected progression to aggressive proprioceptive and strength training toward normalization of function (PRN) Therapeutic Activity: Functional Activity Training (PRN) Neuromuscular Re-education: Quadriceps contractility, balance, proprioception, and stability program (15 Min including KT Tape to posterior knee to assist with reduction of right knee hyperextension during gait) Gait: Ambulation SBA/Min A 30 feet X3 (15 Min) Modalities: Do Not recommend Modalities Aquatic PT: PRN Goals: Short Term Goals: To be met by 03/07/24 The patient to demonstrate 50% reduction in pain to at worst 2-3/10 intensity and intermittent withsuccessful reduction in post-surgical medication to be met in 2-4 weeks The patient to achieve 0-110 degrees AROM in 2 weeks, 0-120 degrees in 4 weeks, and normal pain free ROM by conclusion of PT expected in 4-6 weeks The patient to have 4/5 knee flexion and extension strength in 1-2 weeks and 4+/5 or better strength in 4-6 weeks The patient to be successful with ambulation with Lofstrand crutches 50 feet by conclusion of PT expected in 6-12 weeks. Possible utilization of [place] knee brace to limit knee hyperextension. Patient to be independent with HEP management of this condition and be low fall risk with device byconclusion of PT expected in 6-12 weeks Rehab Potential: Good PT Assessment: The patient has participated in 2 outpatient PT sessions since start of care on 01/22/25 post rightknee arthroscopy performed by Dr Travis on 11/23/24. Did participate in 10 [facility] In-Home sessions 12/05/24-01/14/25. Reports medial inferior knee pain that is moderate in nature. Pain with palpation over Pes Anserine bursa which is common complication of knee arthroscopy. Patient with initial injury April 21, 2023 when she was utilizing custom wheelchair in parking lot. Chair front lola wheel fell into circular open area in [place] resulting in hard fall forward including right knee damage. Resulted in this PT episode and 2-prior surgical events. Discussed and reviewed biomechanics of right knee hyperextension moment which results in pain. Discussed [place] knee brace. Patient motivate to obtain knee brace if insurance approves. [place] knee extension brace is necessary to prevent right knee hyperextension and reduce anterior knee compression moment that will enable improved ambulation quality and endurance. Demonstrates swelling and point tenderness medical inferior knee in the region of the Pes Anserine bursa. Utilized Ultrasound, manual therapy techniques, and neuromuscular re-education to reduce inflammation in that distribution. Bursitis is a direct complication of injury and post surgical status (02/04/25-DBO) Continue per PT POC. Plan: Recommend outpatient PT 2-3 times/week for up to 8-12 weeks per above PT POC pending patient progress and medical necessity standards (01/22/25-DBO) I hereby deem this POC medically necessary. Please sign below and fax back to the number below. Physician Signature: Date: documented in this encounterHawthorn Children's Psychiatric [id number] Instructions* Patient Instructions* Deuce Farley, ROJAS.[facility] - 01/23/2025 3:54 PM EDT - A member of my scheduling team will call you to set up a consultation at the Epilepsy clinic. - You may need to complete an EEG before that appointment; the database administrator will guide you through arranging it. Scheduling for neurology- [phone] documented in this encounterOhio [facility]06-18-[facility]25 History of Present illness Narrative* Deuce Farley APRN.CHARLIE - 01/23/2025 3:15 PM EDT [facility] Virtual Visit Follow up This visit was conducted as a virtual visit, with patient's permission, via zoom. It required patient-provider interaction for the medical decision making as documented below. Patient stated name and Patient location [place] I have communicated my name and active licensure. The patient's identity and physical location wereverified at the time of this visit. Either the patient or their legal underwriting service representative has been informed of the risks and benefits of -- and alternatives to -- treatment through a remote evaluation andconsents to proceed with the evaluation remotely. Recording using ambient [employer] software for draft documentation of the visit was discussed with the patient/authorized underwriting service representative; all questions welcomed and answered. Patient/authorized underwriting service representative agreed to proceed January 22, 2025 Primary Problem List: ACTIVE PROBLEM LIST Oab (Overactive Bladder) Neurogenic Bladder Asthma (Hcc) Diplegic Cerebral Palsy (Hcc) Fatty (Change Of) Liver, Not Elsewhere Classified Class 3 Severe Obesity in Adult (Hcc) Obesity, Class III, BMI >= 40 Moderate Protein-Calorie Malnutrition (Hcc) Ponv (Postoperative Nausea and Vomiting) Chief Complaint: facial pain Impression and Plan last visit: 03/19/2024 with me Vijaya Tinsley is a 28 year old year old female, with a history of cerebral palsy, asthma, POTS, neurogenic bladder, obesity with BMI 46, headaches and left sided facial pain. Facial pain started about 5 months after falling out of her wheelchair hitting her face. It is in the V2-V3 region but mostly localized to the ear and feels like an earache sharp pain. No triggers pain can last seconds to minutes occur 2-3 times a day to multiple times a day and some days no pain. Discussed imaging which does not show compression of the TN with the super cerebellar artery. No change with the increase in Cymbalta. She is agreeable to trying Gabapentin. PLAN: Start Gabapentin 300mg and night and increase weekly to 300mg tid Interval Headache History: Vijaya Tinsley is a 29-year-old female with a history of cerbral palsy and facial pain, presenting for evaluation of episodes of transient speech loss Transient Speech Loss: - Episodes of transient speech loss, x3 times. - First episode occurred approximately 1 year ago; two other episodes - Describes episodes as sudden loss of ability to speak, lasting 2-3 minutes, zoning out - Unable to recall events or conversations during the episodes. - Episodes are unpredictable, often occurring when overthinking but not necessarily when stressedor anxious. - Denies any associated eye fluttering, eyelid twitching, blinking, jerky movements, or twitchy movements. - No history of seizures. - Father reports observing one episode, describing it as a brief (10-15 seconds) pause in conversation with a blank stare and inability to speak, followed by inability to recall the conversation. Facial Pain: - Vijaya reports improvement in left sided facial pain, now described as a sharp, dull pain localized to the left ear. - Pain is brief, lasting only a few seconds, and does not radiate to the cheek. - Discontinued gabapentin due to lack of efficacy and concern about potential impact on performanceas a member of the [employer]. FACIAL PAIN FEATURES Side: left , 09/2023 Distribution: v2, v3, localized to the ear Any pain on side or back of head: no Character: sharp pain Duration: in 2 seconds to 2 minutes. Pain-free between episodes: yes Triggers: no Sensory abnormalities: no Tried Tegretol/Trileptal: no Prior procedures/outcome: no History of MS, Lyme's disease, facial rash: no History of dental/oral surgery, facial/plastic surgery: no Muscle Relaxer Tizanidine (Zanaflex) No current outpatient medications on file. No current facility-administered medications for this visit. PAST MEDICAL HISTORY Diagnosis Date Cerebral palsy ([facility]) Class 3 severe obesity in adult ([facility]) 06/11/2022 ALLERGIES Allergen Reactions Grass Pollen-Bermud* Unknown Amoxicillin Diarrhea Vancomycin Hives Burning sensation Cetirizine Hives, Other: See Comments, Rash hives MRI Head/Brain - Last 2 Impressions MRI BRAIN WO/W IVCON Exam End: 01/05/2024 6:22 PM (Final result) Impression: IMPRESSION: 1. No acute intracranial findings. 2. No pathologic enhancement or morphologic distortion of either trigeminal nerve. No evidence of arterial impingement on the trigeminal ... MRI BRAIN WO IVCON Exam End: 12/04/2022 5:07 PM (Final result) Impression: IMPRESSION: Unremarkable noncontrast MRI brain. Report E-Signed By: Filiberto Cabrera M.D. at 12/06/2022 10:06 AM... MRA Head and/or Neck - Last 2 Impressions MRA BRAIN WO IVCON Exam End: 01/05/2024 6:22 PM (Final result) Impression: IMPRESSION: 1. No acute intracranial findings. 2. No pathologic enhancement or morphologic distortion of either trigeminal nerve. No evidence of arterial impingement on the trigeminal nerves. 3. Patent intracranial vasculature. No aneurysm is identified. Crisis Clinician: DONG Transcribe Date/Time: Jan 05 2024 10:10P Dictated by : CEDRIC VALLE MD This examination was interpreted and the report reviewed and electronically signed by: CEDRIC VALLE MD on Jan 05 2024 10:25PM EST CT Head/Brain - Last 2 Impressions No resulted procedures found. CTA Head and/or Neck - Last 2 No resulted procedures found. I have reviewed the Health Status Assessment responses and discussed these with the patient: yes Deuce Farley APRN.HR RECRUITER HEADACHE SCORES: 12/13/2023 03/19/2024 Headache Questions Face pain on one side only: Yes Do you have Trigeminal neuralgia: Yes Face pain described as: Electric shock Do you have numbness with severe pain: No Pain triggered by brushing your teeth, eating, shaving or touching your face: No Days per month with mild/moderate face pain: 10 5 Days per month with severe face pain: 0 1 Days per month free from face pain: 12 12/13/2023 03/19/2024 STEVENSON - 2/7 SCORES STEVENSON-2 Score 5 2 STEVENSON-7 Score 17 12/13/2023 Pain Disability Index PDI Score 17 12/13/2023 03/19/2024 PHQ-9 Score 16 14 Review of Systems: Review of system: unchanged from the previous visit (sleep patterns, mood, energy, appetite, stress, exercising). Examination: Vital Signs: LMP 06/04/2022 (Approximate) Limited due to the nature of the visit General: well appearing, in no acute distress, well-hydrated, well nourished, alert Pain Behaviors:no pain behaviors observed Neurological: Mental Status: Alert and oriented to person, place and time. Affect is normal and appropriate. Speech is spontaneous and fluent without dysarthria, normal in rate, volume and articulation, and clear,coherent, and relevant. Short and senior living memory, cognition and general fund of knowledge are good. Attention span and concentration are excellent. HEENT: Head is normocephalic and features were symmetric. Musculoskeletal: Patient able to sit up right in chair for entirety of visit. IMPRESSION/PLAN: Vijaya Tinsley is a 29 year old year old female, with a history of cerebral palsy, asthma, POTS, neurogenic bladder, obesity with BMI 46, headaches and left sided facial pain. Facial pain started after falling out of the wheelchair and hitting her face. Very infrequent and localized around the ear, the rifle will lay against this side of her face. 1. Staring episodes (R40.4) 2. Absence seizure (HCC) (G40.A09) - Episodes characterized by sudden loss of speech and awareness, lasting approximately 10-30 seconds, with no associated motor activity or eye fluttering. - Differential diagnosis includes absence seizures. - Referral to epilepsy specialist for further evaluation. - Schedulers will contact patient to arrange an appointment; EEG may be required prior to consultation. 3. Diplegic cerebral palsy (HCC) (G80.8) 4. Facial pain (R51.9) - Pain described as sharp and dull, localized to the left ear, with decreased frequency and duration - Discontinued gabapentin due to lack of efficacy and concerns about potential impact on shooting performance as a member of the [employer]. - Monitor symptoms; no further medication adjustments at this time. Keep track of all medications: This includes the reason for use, side effects and benefits.) MEDICATION TREATMENT: Medications to Start Taking None Follow-up: PRN . Level of service: Est level 3 (20-29 min). Time spent 20 min on the day of service, which included preparing to see the patient, [id number] patient care, completing clinical documentation, obtaining and/or reviewing separately obtained history, and counseling and educating the patient/family/caregiver. GERONIMO Lopez Head[facility] documented in this encounterOhio [facility] Hospital06-18-2025 NoteHNO ID: [id number] Author: DEUCE FARLEY APRN.CNP Service: ? Author Type: Nurse Practitioner Type: Progress Notes Filed: 01/23/2025 16:00 Note Text: [facility] Virtual Visit Follow up This visit was conducted as a virtual visit, with patient's permission, via zoom. It required patient-provider interaction for the medical decision making as documented below. Patient stated name and Patient location [place] I have communicated my name and active licensure. The patient's identity and physical location were verified at the time of this visit. Either the patient or their legal underwriting service representative has been informed of the risks and benefits of -- and alternatives to -- treatment through a remote evaluation and consents to proceed with the evaluation remotely. Recording using [employer] software for draft documentation of the visit was discussed with the patient/authorized underwriting service representative; all questions welcomed and answered. Patient/authorized underwriting service representative agreed to proceed January 22, 2025 Primary Problem List: ACTIVE PROBLEM LIST Oab (Overactive Bladder) Neurogenic Bladder Asthma (Hcc) Diplegic Cerebral Palsy (Hcc) Fatty (Change Of) Liver, Not Elsewhere Classified Class 3 Severe Obesity in Adult (Hcc) Obesity, Class III, BMI >= 40 Moderate Protein-Calorie Malnutrition (Hcc) Ponv (Postoperative Nausea and Vomiting) Chief Complaint: facial pain Impression and Plan last visit: 03/19/2024 with me Vijaya Tinsley is a 28 year old year old female, with a history of cerebral palsy, asthma, POTS, neurogenic bladder, obesity with BMI 46, headaches and left sided facial pain. Facial pain started about 5 months after falling out of her wheelchair hitting her face. It is in the V2-V3 region but mostly localized to the ear and feels like an earache sharp pain. No triggers pain can last seconds to minutes occur 2-3 times a day to multiple times a day and some days no pain. Discussed imaging which does not show compression of the TN with the super cerebellar artery. No change with the increase in Cymbalta. She is agreeable to trying Gabapentin. PLAN: Start Gabapentin 300mg and night and increase weekly to 300mg tid Interval Headache History: Vijaya Tinsley is a 29-year-old female with a history of cerbral palsy and facial pain, presenting for evaluation of episodes of transient speech loss Transient Speech Loss: - Episodes of transient speech loss, x3 times. - First episode occurred approximately 1 year ago; two other episodes - Describes episodes as sudden loss of ability to speak, lasting 2-3 minutes, zoning out - Unable to recall events or conversations during the episodes. - Episodes are unpredictable, often occurring when overthinking but not necessarily when stressed or anxious. - Denies any associated eye fluttering, eyelid twitching, blinking, jerky movements, or twitchy movements. - No history of seizures. - Father reports observing one episode, describing it as a brief (10-15 seconds) pause in conversation with a blank stare and inability to speak, followed by inability to recall the conversation. Facial Pain: - Vijaya reports improvement in left sided facial pain, now described as a sharp, dull pain localized to the left ear. - Pain is brief, lasting only a few seconds, and does not radiate to the cheek. - Discontinued gabapentin due to lack of efficacy and concern about potential impact on performance as a member of the [employer]. FACIAL PAIN FEATURES Side: left , 09/2023 Distribution: v2, v3, localized to the ear Any pain on side or back of head: no Character: sharp pain Duration: in 2 seconds to 2 minutes. Pain-free between episodes: yes Triggers: no Sensory abnormalities: no Tried Tegretol/Trileptal: no Prior procedures/outcome: no History of MS, Lyme's disease, facial rash: no History of dental/oral surgery, facial/plastic surgery: no Muscle Relaxer Tizanidine (Zanaflex) No current outpatient medications on file. No current facility-administered medications for this visit. PAST MEDICAL HISTORY Diagnosis Date Cerebral palsy ([facility]) Class 3 severe obesity in adult ([facility]) 06/11/2022 ALLERGIES Allergen Reactions Grass Pollen-[place]* Unknown Amoxicillin Diarrhea Vancomycin Hives Burning sensation Cetirizine Hives, Other: See Comments, Rash hives MRI Head/Brain - Last 2 Impressions MRI BRAIN WO/W IVCON Exam End: 01/05/2024 6:22 PM (Final result) Impression: IMPRESSION: 1. No acute intracranial findings. 2. No pathologic enhancement or morphologic distortion of either trigeminal nerve. No evidence of arterial impingement on the trigeminal ... MRI BRAIN WO IVCON Exam End: 12/04/2022 5:07 PM (Final result) Impression: IMPRESSION: Unremarkable noncontrast MRI brain. Report E-Signed By: Bri Armando (more content not included)... [facility]06-09-2025 History of Present illness Narrative* Parker Queen, PT - 01/14/2025 11:00 AM EDT Physical Therapy Physical Therapy Follow Up Visit Patient Name: Vijaya Tinsley Today's Date: 01/14/2025 Visit: 10 Time In: 1115 Time Out: 1140 Therapeutic Exercise: 10 minutes Gait trainin minutes Subjective: Patient was seen today for follow up visit S/P Right knee arthroscopy (DOS: 11/23/24). Patient is complaining of 0-2/10 pain in right knee when weight bearing. She remains fearful of fully bearing weight on right LE with knee fully extended. Patient currently lives with mother in 1 story home with ramp entry. PMHx: Cerebral Palsy, right meniscus tear, asthma. 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 Patient says that she has been compliant with her home program. She states that she has been walking some at least daily. Today will be her last in home therapy session as she leaves later this week for her first competitive shooting match in a couple of years. She is scheduled to follow up with outpatient therapy upon her return. Precautions: WBAT Right LE Treatment: Therapeutic Activity: Patient is consistently demonstrating improved sit to stand technique with limited stress on right medial knee. Therapeutic Exercise: Patient continued with quad sets and repeated sit to stand transfers. She performed standing marches with support from crutches. Patient also performed several reps of standing quad sets in order to get used to feeling of bearing weight on her right knee with full knee extension. She is gaining confidence, but remains fearful. Gait Training: Gait training with crutches continued. She ambulates varying distances with longest being 100 feet. She requires momentum to keep going, and continues to drag her toes, although this has greatly improved since start of care. She does continue to have a hard time restarting once she stops. She has been instructed that when this happens, she is to take a small step with her right foot first as this seems to get her going again, vs trying to start with left foot. Objective: Right knee AAROM: WFL degrees Right knee strength: 3/5 flexion; 3/5 extension Gait: Patient demonstrates the ability to ambulate x100 feet with toe drag bilaterally with use of crutches and SBA+1. Transfers: modified independence for sit to stand from most surfaces. Assessment: Patient is demonstrating pain and weakness of right knee secondary and difficulty walking secondaryto recent right knee surgery and underlying cerebral palsy. Functional Measures= FIM Scoring: Transfers= 5/7, Ambulation= 2/7, Stairs= 1/7 Prognosis: Good Goals: Short Term (2-3 weeks): Patient will be independent and compliant with home exercise program. Patient will be independent/ modified independent with all transfers. Patient will ambulate x20 feet with SBA+1 with device. [facility]: (4-8 weeks) Patient will demonstrate full active range of motion in right knee. Patient will demonstrate 3+/5 or better strength in right knee flexion and extension. Patient will safely ambulate x50 feet with consistent foot clearance with use of appropriate devicewith SBA+1. Patient will ambulate with consistent foot clearance to reduce risk for falls. Plan: Patient will be seen 2-3 times per week for 6-8 weeks for therapeutic exercise, gait training, therapeutic activity, manual therapy, patient education, and modalities as needed for pain control. documented in this encounterHawthorn Children's Psychiatric [id number] Telephone encounter Note* Telephone Encounter - Keya Ash - 01/11/2025 3:09 PM EDT Updated labs from [facility] for CMP, Free T4, TSH Date labs collected 01/07/2025 Date scanned in chart 01/11/2025 Last encounter Visit on 01/02/2025 (with Charu Martínez) Keya Ash [employer] [facility] X20 [facility]06-06-2025 Miscellaneous Notes* Telephone Encounter - Keya Ash - 01/11/2025 3:09 PM EDT Updated labs from [facility] for CMP, Free T4, TSH Date labs collected 01/07/2025 Date scanned in chart 01/11/2025 Last encounter Visit on 01/02/2025 (with Charu Martínez) Keya Ash [employer] [facility] X20 documented in [facility] encounterOhio [facility] Hospital06[facility] History of Present illness Narrative* Markie Segura, CLARISSA - 01/11/2025 11:00 AM EDT Images from the original note were not included. HISTORY OF PRESENT ILLNESS: EST PT Vijaya Tinsley is an 29 y.o. @ female. (EST PT) - PO - RT KNEE SCOPE 11/23/24 (7 WKS) @ [facility]. PRESENTS IN WC. STILL HAVING PAIN ANTERIOR-MEDIAL WITH PRESSURE. NO PAIN MEDS. DENIES N/T, SWELLING. CONTINUES PT. DENIES ISSUES WITH INCISIONS. STATES KNEE POPPED YESTERDAY, DIDN'T HAVE ANY PAIN WITH IT. ALLERGIES: Allergies Allergen Reactions Amoxicillin Diarrhea Cetirizine Hives, Itching and Rash Vancomycin Hives, Rash and Other Burning Sensation HOME MEDICATIONS: Current Outpatient Medications Medication Instructions Gemtesa 75 MG tablet 1 tablet, Daily Levonorgestrel 52 mg nitrofurantoin, macrocrystal-monohydrate, (Macrobid) 100 MG capsule TAKE 1 CAPSULE BY MOUTH 2 TIMESDAILY FOR URINARY TRACT INFECTION. Zepbound 7.5 mg, Weekly PHYSICAL EXAM: Right Knee Exam Tenderness Right knee tenderness location: Compartments soft, diffuse pain in knee. Range of Motion The patient has normal right knee ROM. Extension: 5 Flexion: 100 (tightness on terminal flexion) Tests Varus: negative Valgus: negative Other Erythema: absent Scars: present (Portals well healing, sutures removed, no erythema, drainge or discharge, no dehisence) Sensation: normal Pulse: present Swelling: mild Effusion: no effusion (consistent with surgery) present Comments: Has hx of CP. Uses wheelchair mostly. Negative Homans and negative Quinn were noted bilaterally to lower extremities. Incision was healing without evidence of infection. Still diffuse pain in knee when she does ambulate Vitals: There is no height or weight on file to calculate BMI. Tobacco Use: Low Risk (01/11/2025) Patient History Smoking Tobacco Use: Never Smokeless Tobacco Use: Never Passive Exposure: Not on file Alcohol Use: Not At Risk (10/07/2019) Received from [facility] Frequency of Alcohol Consumption: Never Average Number of Drinks: Not on file Frequency of Binge Drinking: Not on file IMAGING: Procedures No orders of the defined types were placed in this encounter. ASSESSMENT: ICD-10-CM 1. S/P right knee arthroscopy Z98.890 PLAN: Patient presents with her mother and states is doing well overall and has been working with PT on ambulation. She states she has made improvement but still having diffuse knee pain with ambulation. Ieducated patient that it is normal to have some pain after surgery and with working on ambulation as she has mostly used her wheelchair for past 2 years per patient. She will continue to work with PTbut I did educate patient that she may have pain even after surgery and PT. She will call with worsening symptoms and will follow up as needed. Questions answered in laymen terms at the bedside. The diagnosis, home exercise plan and any ongoing restrictions/ recommendations reviewed. If unable to be reached in office, I recommend evaluation at nearest Emergency Room if any symptoms worsened or new symptoms develop for requiring urgent evaluation. Markie Segura APRN, NP-C documented in this encounterHawthorn Children's Psychiatric [id number] History of Present illness Narrative* Parker Queen, PT - 01/11/2025 9:30 AM EDT Physical Therapy Physical Therapy Follow Up Visit Patient Name: Vijaya Tinsley Today's Date: 01/11/2025 Visit: 9 Time In: 930 Time Out: 955 Therapeutic Exercise: 15 minutes Gait trainin minutes Subjective: Patient was seen today for follow up visit S/P Right knee arthroscopy (DOS: 11/23/24). Patient is complaining of 0-2/10 pain in right knee when weight bearing. She remains fearful of fully bearing weight on right LE with knee fully extended. Patient currently lives with mother in 1 story home with ramp entry. PMHx: Cerebral Palsy, right meniscus tear, asthma. 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 Patient says that she has been compliant with her home program. She states that she has been walking some at least daily. She says that she did a lot of walking yesterday. Precautions: WBAT Right LE Treatment: Therapeutic Activity: Transfer training continued from lift chair and from wheelchair. Patient is performing transfers with modified independence with improved uniformity with weight bearing. Therapeutic Exercise: Patient continued with quad sets and repeated sit to stand transfers. Floresitaalso was instructed in and performed standing marching exercises using crutches. She was able to perform in reps of 5 with decreased ability as she fatigues. Gait Training: Patient ambulated short distances today with use of crutches. She attempted to walk longer today, but did not trust her left LE today. Manual Therapy: Passive range of motion to right knee. Objective: Right knee AAROM: WFL degrees Right knee strength: 3/5 flexion; 3/5 extension Gait: Patient demonstrates the ability to ambulate x10 feet with toe drag bilaterally. She states that she has always had difficulty with foot clearance, but that it is much worse today than in the past. Transfers: modified independence for sit to stand from most surfaces. Assessment: Patient is demonstrating pain and weakness of right knee secondary and difficulty walking secondaryto recent right knee surgery and underlying cerebral palsy. Functional Measures= FIM Scoring: Transfers= 5/7, Ambulation= 2/7, Stairs= 1/7 Prognosis: Good Goals: Short Term (2-3 weeks): Patient will be independent and compliant with home exercise program. Patient will be independent/ modified independent with all transfers. Patient will ambulate x20 feet with SBA+1 with device. [facility]: (4-8 weeks) Patient will demonstrate full active range of motion in right knee. Patient will demonstrate 3+/5 or better strength in right knee flexion and extension. Patient will safely ambulate x50 feet with consistent foot clearance with use of appropriate devicewith SBA+1. Patient will ambulate with consistent foot clearance to reduce risk for falls. Plan: Patient will be seen 2-3 times per week for 6-8 weeks for therapeutic exercise, gait training, therapeutic activity, manual therapy, patient education, and modalities as needed for pain control. documented in this encounterHawthorn Children's Psychiatric [id number] Telephone encounter Note* Telephone Encounter - Caitlyn dillard - 01/09/2025 3:23 PM EDT Images from the original note were not included. Updated labs from [facility] Date labs collected 01-07-25 Date scanned in chart 01-09-25 Last encounter Visit on 01/02/2025 (with Charu Tanya) Caitlyn Bynum [employer] II Endocrinology & Metabolism [facility] X-20, F-20 [facility]06-04-2025 Miscellaneous Notes* Telephone Encounter - Caitlyn Bynum - 01/09/2025 3:23 PM EDT Images from the original note were not included. Updated labs from [facility] Date labs collected 01-07-25 Date scanned in chart 01-09-25 Last encounter Visit on 01/02/2025 (with Charu Tanya) Caitlyn Bynum [employer] II Endocrinology & Metabolism [facility] X-20, F-20 documented in this encounterOhio State East Hospital06-02-2025 NoteHNO ID: [id number] Author: JUDY SELF LPN Service: ? Author Type: LICENSED NURSE Type: Progress Notes Filed: 01/07/2025 13:54 Note Text: POST VOID RESIDUAL (PVR) January 07, 2025 at 1:34 PM Patient ID with two (2) identifiers verified by: Judy Self LPN Allergies reviewed and updated: Yes Current pain intensity is: 0 on a 0-10 pain scale. Any concerns about safety in the home/falls: At risk due to: use of a wheelchair Post Void Residual done on patient with 4 cc residual volume remaining. notified. Patient states she has noticed great improvement. She lives in [place] and would like her information sent to her Urologist back home in order to have Botox done at home in the future if needed. Will send a message to Dr. Hathc. All questions answered. [facility] History of Present illness Narrative* Judy Self LPN - 01/07/2025 1:34 PM EDT POST VOID RESIDUAL (PVR) January 07, 2025 at 1:34 PM Patient ID with two (2) identifiers verified by: Judy Self LPN Allergies reviewed and updated: Yes Current pain intensity is: 0 on a 0-10 pain scale. Any concerns about safety in the home/falls: At risk due to: use of a wheelchair Post Void Residual done on patient with 4 cc residual volume remaining. MD notified. Patient states she has noticed great improvement. She lives in [place] and would like her information sent to her Urologist back home in order to have Botox done at home in the future if needed. Will send a message to Dr. Jayla Desai. All questions answered. Judy Self LPN documented in this encounterOhio State East Hospital05-29-2025 History of Present illness Narrative* Parker Queen, PT - 01/03/2025 12:30 PM EDT Physical Therapy Physical Therapy Follow Up Visit Patient Name: Vijaya Tinsley Today's Date: 01/03/2025 Visit: 8 Time In: 1230 Time Out: 1255 Therapeutic Exercise: 10 minutes Gait trainin minutes Subjective: Patient was seen today for follow up visit S/P Right knee arthroscopy (DOS: 11/23/24). Patient is complaining of 0-2/10 pain in right knee when weight bearing. She remains fearful of fully bearing weight on right LE with knee fully extended. Patient currently lives with mother in 1 story home with ramp entry. PMHx: Cerebral Palsy, right meniscus tear, asthma. 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 Patient says that she has been compliant with her home program. She states that she has been walking some at least daily. Precautions: WBAT Right LE Treatment: Therapeutic Activity: Transfer training continued from lift chair and from wheelchair. Patient is performing transfers with modified independence with improved uniformity with weight bearing. Therapeutic Exercise: Patient continued with quad sets and repeated sit to stand transfers. [place] was instructed in and performed standing marching exercises using crutches. She was able to perform in reps of 5 with decreased ability as she fatigues. Gait Training: Gait training today with use of loftstrand crutches. She ambulated x100 feet multiple times with improved foot clearance bilaterally. Patient is demonstrating improved safety and balance with crutches. Manual Therapy: Passive range of motion to right knee. Objective: Right knee AAROM: WFL degrees Right knee strength: 3/5 flexion; 3/5 extension Gait: Patient demonstrates the ability to ambulate x10 feet with toe drag bilaterally. She states that she has always had difficulty with foot clearance, but that it is much worse today than in the past. Transfers: modified independence for sit to stand from most surfaces. Assessment: Patient is demonstrating pain and weakness of right knee secondary and difficulty walking secondaryto recent right knee surgery and underlying cerebral palsy. Functional Measures= FIM Scoring: Transfers= 5/7, Ambulation= 2/7, Stairs= 1/7 Prognosis: Good Goals: Short Term (2-3 weeks): Patient will be independent and compliant with home exercise program. Patient will be independent/ modified independent with all transfers. Patient will ambulate x20 feet with SBA+1 with device. [employer]: (4-8 weeks) Patient will demonstrate full active range of motion in right knee. Patient will demonstrate 3+/5 or better strength in right knee flexion and extension. Patient will safely ambulate x50 feet with consistent foot clearance with use of appropriate devicewith SBA+1. Patient will ambulate with consistent foot clearance to reduce risk for falls. Plan: Patient will be seen 2-3 times per week for 6-8 weeks for therapeutic exercise, gait training, therapeutic activity, manual therapy, patient education, and modalities as needed for pain control. documented in this encounterHawthorn Children's Psychiatric [id number] History of Present illness Narrative* Charu Martínez MD - 01/02/2025 11:20 AM EDT Endocrinology Virtual Visit New patient: This is a virtual visit using [employer] Zoom Video Visit. It required patient- provider interaction for the medical decision making as documented below. I have communicated my name and active licensure. The patient's identity and physical location wereverified at the time of this visit. Either the patient or their legal underwriting service representative has been informed of the risks and benefits of -- and alternatives to -- treatment through a remote evaluation andconsents to proceed with the evaluation remotely. Vijaya Tinsley is a 29 years old female seen for concerns of damián thyroid disorder. Previous provider: (09/01) Pt. 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 Meniscal tear s/p arthroscopy - receiving PT. Neurogenic bladder (recently underwent cystourethroscopy) . - C/o fatigue , disturbed sleep. - When I eat , do not feel full - endorsed H/O hypothyroidism , but most recent TFTs are not supporting that diagnosis. - previously evaluated by . Routine: Goes to sleep 12:00 AM (body does not shut down) Wakes up: 10:00 AM First meal: 11:00 AM - tuna , crackers Snacks - throughout the day - granula bars , wafers , nature valley , chips, fruits. 2nd meal : 5:00 PM - meat , burger, pasta 3rd meal: 8:00 PM - cheerios Drinks apple juice, cranberry juice , zero sugar soda 1-2 cans daily Physical activity: not active physically. Have H/O CP S/p Rt. Knee arthroscopy November 23 Receiving PT sessions. Significant barriers to physical activity Was taking Zepbound - started a year ago , maximum dose she took 7.5 mg/ weekly. Not taking for about 5-6 months due to insurance issues. H/O Pancreatitis: denies H/O Gallstones: denies Personal or FH H/O MTC: denies HISTORY REVIEWED (electronic chart updated): PAST MEDICAL HISTORY Diagnosis Date Cerebral palsy (HCC) Class 3 severe obesity in adult 06/11/2022 PAST SURGICAL HISTORY Procedure Laterality Date ANKLE SURGERY HX Left Left ankle infection ARTHROTOMY W/MENISCUS REPAIR KNEE 2021 ARTHROTOMY W/MENISCUS REPAIR KNEE 2023 KNEE SURGERY HX Right 11/23/2024 ORAL SURGERY PROCEDURE root canal PAST SURGICAL HISTORY OF bladder stimulator FAMILY HISTORY Problem Relation Age of Onset Anesthesia Problems No Family History Social History Tobacco Use Smoking status: Never Smokeless tobacco: Never Substance Use Topics Alcohol use: Not Currently Drug use: Never No current outpatient medications on file. No current facility-administered medications for this visit. ALLERGIES Allergen Reactions Grass Pollen-Bermud* Unknown Amoxicillin Diarrhea Vancomycin Hives Burning sensation Cetirizine Hives, Other: See Comments, Rash hives REVIEW OF SYSTEM: As per HPI PHYSICAL EXAMINATION: Pt. Alert , oriented , in no acute distress. Relevant labs: As per 05/31 : done at TSH: 1.82 Total T3: 171 Free T4: 1.03 TG Ab: 122 Labs ordered by 12/19/23: 09:05 AM TPO Ab: 10 (01/29) - negative AM cortisol: 10.9 , ACTH 45 ASSESSMENT & PLAN: # To R/O Damián thyroid disorder. Previous TFTs are not supportive of this diagnosis. Not sure if any work up done at outside facility not is not uploaded in her chart? Will repeat TSH , free T4 and TPO Ab. Will get work up for insulin resistance. Lack of physical activity , obesity may contribute to insulin resistance that can make her feel more hungry. Previously AM cortisol was not concerning for hypercortisolism. Will discuss lab results once available. Plan discussed with her , she agrees. Charu Martínez MD documented in this encounterOhio State East Hospital05-28-2025 NoteHNO ID: [id number] Author: CHARU MARTÍNEZ MD Service: ? Author Type: Physician Type: Progress Notes Filed: 01/02/2025 12:26 Note Text: Endocrinology Virtual Visit New patient: This is a virtual visit using [employer] Zoom Video Visit. It required patient-provider interaction for the medical decision making as documented below. I have communicated my name and active licensure. The patient's identity and physical location were verified at the time of this visit. Either the patient or their legal underwriting service representative has been informed of the risks and benefits of -- and alternatives to -- treatment through a remote evaluation and consents to proceed with the evaluation remotely. Vijaya Tinsley is a 29 years old female seen for concerns of damián thyroid disorder. Previous provider: (09/01) Pt. 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 Meniscal tear s/p arthroscopy - receiving PT. Neurogenic bladder (recently underwent cystourethroscopy) . - C/o fatigue , disturbed sleep. - When I eat , do not feel full - endorsed H/O hypothyroidism , but most recent TFTs are not supporting that diagnosis. - previously evaluated by . Routine: Goes to sleep 12:00 AM (body does not shut down) Wakes up: 10:00 AM First meal: 11:00 AM - tuna , crackers Snacks - throughout the day - granula bars , wafers , nature valley , chips, fruits. 2nd meal : 5:00 PM - meat , burger, pasta 3rd meal: 8:00 PM - cheerios Drinks apple juice, cranberry juice , zero sugar soda 1-2 cans daily Physical activity: not active physically. Have H/O CP S/p Rt. Knee arthroscopy November 23 Receiving PT sessions. Significant barriers to physical activity Was taking Zepbound - started a year ago , maximum dose she took 7.5 mg/ weekly. Not taking for about 5-6 months due to insurance issues. H/O Pancreatitis: denies H/O Gallstones: denies Personal or FH H/O MTC: denies HISTORY REVIEWED (electronic chart updated): PAST MEDICAL HISTORY Diagnosis Date Cerebral palsy (HCC) Class 3 severe obesity in adult 06/11/2022 PAST SURGICAL HISTORY Procedure Laterality Date ANKLE SURGERY HX Left Left ankle infection ARTHROTOMY W/MENISCUS REPAIR KNEE 2021 ARTHROTOMY W/MENISCUS REPAIR KNEE 2023 KNEE SURGERY HX Right 11/23/2024 ORAL SURGERY PROCEDURE root canal PAST SURGICAL HISTORY OF bladder stimulator FAMILY HISTORY Problem Relation Age of Onset Anesthesia Problems No Family History Social History Tobacco Use Smoking status: Never Smokeless tobacco: Never Substance Use Topics Alcohol use: Not Currently Drug use: Never No current outpatient medications on file. No current facility-administered medications for this visit. ALLERGIES Allergen Reactions Grass Pollen-Bermud* Unknown Amoxicillin Diarrhea Vancomycin Hives Burning sensation Cetirizine Hives, Other: See Comments, Rash hives REVIEW OF SYSTEM: As per HPI PHYSICAL EXAMINATION: Pt. Alert , oriented , in no acute distress. Relevant labs: As per 05/31 : done at TSH: 1.82 Total T3: 171 Free T4: 1.03 TG Ab: 122 Labs ordered by 12/19/23: 09:05 AM TPO Ab: 10 (01/29) - negative AM cortisol: 10.9 , ACTH 45 ASSESSMENT AND PLAN: # To R/O Damián thyroid disorder. Previous TFTs are not supportive of this diagnosis. Not sure if any work up done at outside facility not is not uploaded in her chart? Will repeat TSH , free T4 and TPO Ab. Will get work up for insulin resistance. Lack of physical activity , obesity may contribute to insulin resistance that can make her feel more hungry. Previously AM cortisol was not concerning for hypercortisolism. Will discuss lab results once available. Plan discussed with her , she agrees. Charu Martínez, [facility]05-27-2025 History of Present illness Narrative* Parker Queen, PT - 01/01/2025 2:00 PM EDT Physical Therapy Physical Therapy Follow Up Visit Patient Name: Vijaya Tinsley Today's Date: 01/01/2025 Visit: 7 Time In: 1400 Time Out: 1430 Therapeutic Exercise: 12 minutes Therapeutic Activity: 3 minutes Gait trainin minutes Subjective: Patient was seen today for follow up visit S/P Right knee arthroscopy (DOS: 11/23/24). Patient is complaining of 0-2/10 pain in right knee when weight bearing. She remains fearful of fully bearing weight on right LE with knee fully extended. Patient currently lives with mother in 1 story home with ramp entry. PMHx: Cerebral Palsy, right meniscus tear, asthma. 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 Patient says that she has been compliant with her home program. She states that she has been walking some at least daily. Precautions: WBAT Right LE Treatment: Therapeutic Activity: Transfer training continued from lift chair and from wheelchair. Patient is performing transfers with modified independence with improved uniformity with weight bearing. Therapeutic Exercise: Patient continued with quad sets and repeated sit to stand transfers. [place] was instructed in and performed standing marching exercises using crutches. She was able to perform in reps of 5 with decreased ability as she fatigues. Gait Training: Gait training today with use of loftstrand crutches. She ambulated x100 feet multiple times with improved foot clearance bilaterally. Patient is demonstrating improved safety and balance with crutches. Manual Therapy: Passive range of motion to right knee. Objective: Right knee AAROM: WFL degrees Right knee strength: 3/5 flexion; 3/5 extension Gait: Patient demonstrates the ability to ambulate x10 feet with toe drag bilaterally. She states that she has always had difficulty with foot clearance, but that it is much worse today than in the past. Transfers: modified independence for sit to stand from most surfaces. Assessment: Patient is demonstrating pain and weakness of right knee secondary and difficulty walking secondaryto recent right knee surgery and underlying cerebral palsy. Functional Measures= FIM Scoring: Transfers= 5/7, Ambulation= 2/7, Stairs= 1/7 Prognosis: Good Goals: Short Term (2-3 weeks): Patient will be independent and compliant with home exercise program. Patient will be independent/ modified independent with all transfers. Patient will ambulate x20 feet with SBA+1 with device. [facility]: (4-8 weeks) Patient will demonstrate full active range of motion in right knee. Patient will demonstrate 3+/5 or better strength in right knee flexion and extension. Patient will safely ambulate x50 feet with consistent foot clearance with use of appropriate devicewith SBA+1. Patient will ambulate with consistent foot clearance to reduce risk for falls. Plan: Patient will be seen 2-3 times per week for 6-8 weeks for therapeutic exercise, gait training, therapeutic activity, manual therapy, patient education, and modalities as needed for pain control. documented in this encounterHawthorn Children's Psychiatric [id number] History of Present illness Narrative* Parker Queen PT - 12/29/2024 11:00 AM EDT Physical Therapy Physical Therapy Follow Up Visit Patient Name: Vijaya Tinsley Today's Date: 12/29/2024 Visit: 6 Time In: 1100 Time Out: 1130 Therapeutic Exercise: 8 minutes Therapeutic Activity: 4 minutes Manual Therapy: 1 minutes Gait trainin minutes Subjective: Patient was seen today for follow up visit S/P Right knee arthroscopy (DOS: 11/23/24). Patient is complaining of 4/10 pain in right knee when weight bearing. She is still very fearful offull extension when weight bearing. Patient currently lives with mother in 1 story home with ramp entry. PMHx: Cerebral Palsy, right meniscus tear, asthma. 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 Patient says that she has been compliant with her home program. She has done minimal walking since last treatment. Family is fearful of patient falling. Precautions: WBAT Right LE Treatment: Therapeutic Activity: Transfer training continued from lift chair and from wheelchair. Attempted transfers with different positioning of lift chair. Therapeutic Exercise: Patient continued with quad sets and repeated sit to stand transfers. Focus during sit to stands today was on extension of the right knee equal to extension of the left. She typically extends left knee first, followed by the right. She was educated on the detriments of this. Patient also was instructed in and performed standing marching exercises using crutches. She was initially able to perform this task with improved foot clearance bilaterally. As she fatigues, this getsharder and harder to do. Gait Training: Gait training today with use of loftstrand crutches. She ambulated x15-20 feet multiple times with improved foot clearance bilaterally. Patient also ambulates with faster gait. Manual Therapy: Passive range of motion to right knee. Objective: Integumentary: 4 incision sites inspected. No signs of infection. Right knee AAROM: WFL degrees Right knee strength: 3/5 flexion; 3/5 extension Gait: Patient demonstrates the ability to ambulate x10 feet with toe drag bilaterally. She states that she has always had difficulty with foot clearance, but that it is much worse today than in the past. Transfers: SBA+1 for sit to stand from most surfaces. Assessment: Patient is demonstrating pain and weakness of right knee secondary and difficulty walking secondaryto recent right knee surgery and underlying cerebral palsy. Functional Measures= FIM Scoring: Transfers= 5/7, Ambulation= 1/7, Stairs= 1/7 Prognosis: Good Goals: Short Term (2-3 weeks): Patient will be independent and compliant with home exercise program. Patient will be independent/ modified independent with all transfers. Patient will ambulate x20 feet with SBA+1 with device. Cloth Feeder: (4-8 weeks) Patient will demonstrate full active range of motion in right knee. Patient will demonstrate 3+/5 or better strength in right knee flexion and extension. Patient will safely ambulate x50 feet with consistent foot clearance with use of appropriate devicewith SBA+1. Patient will ambulate with consistent foot clearance to reduce risk for falls. Plan: Patient will be seen 2-3 times per week for 6-8 weeks for therapeutic exercise, gait training, therapeutic activity, manual therapy, patient education, and modalities as needed for pain control. documented in this encounterHawthorn Children's Psychiatric [id number] History of Present illness Narrative* Parker Queen PT - 12/26/2024 12:00 PM EDT Physical Therapy Physical Therapy Follow Up Visit Patient Name: Vijaya Tinsley Today's Date: 12/26/2024 Visit: 5 Time In: 1200 Time Out: 1230 Therapeutic Exercise: 8 minutes Therapeutic Activity: 4 minutes Manual Therapy: 1 minutes Gait trainin minutes Subjective: Patient was seen today for follow up visit S/P Right knee arthroscopy (DOS: 11/23/24). Patient is complaining of 4/10 pain in right knee when weight bearing. She is still very fearful offull extension when weight bearing. Patient currently lives with mother in 1 story home with ramp entry. PMHx: Cerebral Palsy, right meniscus tear, asthma. 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 Patient says that she started using loftstrand crutches a few days ago and was able to take a couple of steps. She says that she feels more comfortable with use of crutches, vs. Walker. Precautions: WBAT Right LE Treatment: Therapeutic Activity: Transfer training continued from lift chair and from wheelchair. Attempted transfers with different positioning of lift chair. Therapeutic Exercise: Patient continued with quad sets and repeated sit to stand transfers. Focus during sit to stands today was on extension of the right knee equal to extension of the left. She typically extends left knee first, followed by the right. She was educated on the detriments of this. Patient also was instructed in and performed standing marching exercise. She was consistent with thisability with right LE, with improved ability to lift left foot briefly. Gait Training: Gait training today with use of loftstrand crutches. She ambulated x10 feet multipletimes with improved foot clearance bilaterally. Patient also ambulates with faster gait. Manual Therapy: Passive range of motion to right knee. Objective: Integumentary: 4 incision sites inspected. No signs of infection. Right knee AAROM: WFL degrees Right knee strength: 3/5 flexion; 3/5 extension Gait: Patient demonstrates the ability to ambulate x10 feet with toe drag bilaterally. She states that she has always had difficulty with foot clearance, but that it is much worse today than in the past. Transfers: SBA+1 for sit to stand from most surfaces. Assessment: Patient is demonstrating pain and weakness of right knee secondary and difficulty walking secondaryto recent right knee surgery and underlying cerebral palsy. Functional Measures= FIM Scoring: Transfers= 5/7, Ambulation= 1/7, Stairs= 1/7 Prognosis: Good Goals: Short Term (2-3 weeks): Patient will be independent and compliant with home exercise program. Patient will be independent/ modified independent with all transfers. Patient will ambulate x20 feet with SBA+1 with device. Cloth Feeder: (4-8 weeks) Patient will demonstrate full active range of motion in right knee. Patient will demonstrate 3+/5 or better strength in right knee flexion and extension. Patient will safely ambulate x50 feet with consistent foot clearance with use of appropriate devicewith SBA+1. Patient will ambulate with consistent foot clearance to reduce risk for falls. Plan: Patient will be seen 2-3 times per week for 6-8 weeks for therapeutic exercise, gait training, therapeutic activity, manual therapy, patient education, and modalities as needed for pain control. documented in this encounterHawthorn Children's Psychiatric [id number] NoteHNO ID: [id number] Author: BILLIE HIGGINS APRN.WASTE DISPOSAL ATTENDANT Service: Anesthesiology Author Type: Nurse Calender Runner Type: Anesthesia Procedure Notes Filed: 12/19/2024 12:43 Note Text: ANESTHESIOLOGY PROCEDURE NOTE Airway General Information Procedure Start Time/Medication Administration: 12/19/2024 12:31 PM Procedure End Time: 12/19/2024 12:31 PM Patient location during procedure: OR Timeout Performed Pre-procedure: timeout performed Consent Obtained: Yes Patient identity confirmed: arm band and patient Staffing WASTE DISPOSAL ATTENDANT: Billie Higgins APRN.WASTE DISPOSAL ATTENDANT Performed by: VERA Indications and Patient Condition Indications for airway management: anesthesia Preoxygenated: yes anesthesia circuit Patient position: sniffing Method: asleep Cricoid Pressure: No Manual In-Line Stabilization: No Difficult Mask: No Final Airway Details Final airway type: supraglottic airway Number of attempts at approach: 1 Final Supraglottic Airway: i-gel Size 3 Seal Adequate: yes Failed airway: no Unrecognized esophageal intubation: no Airway not difficult SIGNATURE: Billie Higgins APRN.CRNA PATIENT NAME: Vijaya Tinsley DATE: December 19, 2024 TIME: 12:42 PM [id number] History of Present illness Narrative* Parker Queen, PT - 12/18/2024 12:30 PM EDT Physical Therapy Physical Therapy Follow Up Visit Patient Name: Vijaya Tinsley Today's Date: 12/18/2024 Visit: 4 Time In: 1225 Time Out: 1255 Therapeutic Exercise: 8 minutes Therapeutic Activity: 4 minutes Manual Therapy: 1 minutes Gait trainin minutes Subjective: Patient was seen today for follow up visit S/P Right knee arthroscopy (DOS: 11/23/24). Patient is complaining of 4/10 pain in right knee when weight bearing. She is still very fearful offull extension when weight bearing. Patient currently lives with mother in 1 story home with ramp entry. PMHx: Cerebral Palsy, right meniscus tear, asthma. 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 Patient continues to report difficulty with terminal extension when weight bearing. She says that she has walked a little more frequently since last visit, and has even walked up a couple of steps. Precautions: WBAT Right LE Treatment: Therapeutic Activity: Transfer training continued from lift chair and from wheelchair. Attempted transfers with different positioning of lift chair. Therapeutic Exercise: Patient continued with quad sets and repeated sit to stand transfers. Focus during sit to stands today was on extension of the right knee equal to extension of the left. She typically extends left knee first, followed by the right. She was educated on the detriments of this. Patient also was instructed in and performed standing marching exercise. She was consistent with thisability with right LE, with improved ability to lift left foot briefly. Gait Training: Gait training today with use of wheeled walker. Patient has significant difficulty clearing toes on bilateral feet. She was able to ambulate x18 feet with CGA+1. She demonstrated improved foot clearance of right foot today, along with slightly less toe drag. Manual Therapy: Passive range of motion to right knee. Objective: Integumentary: 4 incision sites inspected. No signs of infection. Right knee AAROM: WFL degrees Right knee strength: 3/5 flexion; 3/5 extension Gait: Patient demonstrates the ability to ambulate x10 feet with toe drag bilaterally. She states that she has always had difficulty with foot clearance, but that it is much worse today than in the past. Transfers: SBA+1 for sit to stand from most surfaces. Assessment: Patient is demonstrating pain and weakness of right knee secondary and difficulty walking secondaryto recent right knee surgery and underlying cerebral palsy. Functional Measures= FIM Scoring: Transfers= 5/7, Ambulation= 1/7, Stairs= 1/7 Prognosis: Good Goals: Short Term (2-3 weeks): Patient will be independent and compliant with home exercise program. Patient will be independent/ modified independent with all transfers. Patient will ambulate x20 feet with SBA+1 with device. Cloth Feeder: (4-8 weeks) Patient will demonstrate full active range of motion in right knee. Patient will demonstrate 3+/5 or better strength in right knee flexion and extension. Patient will safely ambulate x50 feet with consistent foot clearance with use of appropriate devicewith SBA+1. Patient will ambulate with consistent foot clearance to reduce risk for falls. Plan: Patient will be seen 2-3 times per week for 6-8 weeks for therapeutic exercise, gait training, therapeutic activity, manual therapy, patient education, and modalities as needed for pain control. documented in this encounterMeghan Ville [id number] Evaluation note* Author Flora Nixon [facility] Authored December 17, 2024 3:03p m Sooner if needed, ER if conc erns. The above note written by Flora Nixon LPN, acting as human recorder, note dictated by Dr. Dionne Chambers. [facility] Work Phone: [phone] History of Present illness Narrative* Parker Queen, PT - 12/13/2024 11:00 AM EDT Physical Therapy Physical Therapy Follow Up Visit Patient Name: Vijaya Tinsley Today's Date: 12/13/2024 Visit: 3 Time In: 1115 Time Out: 1145 Therapeutic Exercise: 8 minutes Therapeutic Activity: 4 minutes Manual Therapy: 1 minutes Gait trainin minutes Subjective: Patient was seen today for follow up visit S/P Right knee arthroscopy (DOS: 11/23/24). Patient is complaining of 4/10 pain in right knee when weight bearing. Patient currently lives with mother in 1 story home with ramp entry. PMHx: Cerebral Palsy, right meniscus tear, asthma. 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 Patient continues to report difficulty with terminal extension when weight bearing. She says that she has only walked minimally because she is afraid of her knee giving out on her. Precautions: WBAT Right LE Treatment: Therapeutic Activity: Transfer training continued from lift chair and from wheelchair. Attempted transfers with different positioning of lift chair. Therapeutic Exercise: Patient continued with quad sets and repeated sit to stand transfers. Education with focus on keeping knees when standing to keep weight centralized over linearly. Shewas able to return demonstrate only 50% of the time with many attempts resulting in genu valgum of right knee. She was educated on the detriments of this. Patient also was instructed in and performed standing marching exercise. She was consistent with this ability with right LE, but had moderate difficulty with left LE marching. Gait Training: Gait training today with use of wheeled walker. Patient has significant difficulty clearing toes on bilateral feet. She was able to ambulate x10 feet with CGA+1. She demonstrated improved foot clearance of right foot today. Manual Therapy: Passive range of motion to right knee. Objective: Integumentary: 4 incision sites inspected. No signs of infection. Right knee AAROM: WFL degrees Right knee strength: 3/5 flexion; 3/5 extension Gait: Patient demonstrates the ability to ambulate x10 feet with toe drag bilaterally. She states that she has always had difficulty with foot clearance, but that it is much worse today than in the past. Transfers: CGA+1 for sit to stand from lower surfaces. Assessment: Patient is demonstrating pain and weakness of right knee secondary and difficulty walking secondaryto recent right knee surgery and underlying cerebral palsy. Functional Measures= FIM Scoring: Transfers= 12/12, Ambulation= 08/14, Stairs= 08/14 Prognosis: Good Goals: Short Term (2-3 weeks): Patient will be independent and compliant with home exercise program. Patient will be independent/ modified independent with all transfers. Patient will ambulate x20 feet with SBA+1 with device. [facility]: (4-8 weeks) Patient will demonstrate full active range of motion in right knee. Patient will demonstrate 3+/5 or better strength in right knee flexion and extension. Patient will safely ambulate x50 feet with consistent foot clearance with use of appropriate devicewith SBA+1. Patient will ambulate with consistent foot clearance to reduce risk for falls. Plan: Patient will be seen 2-3 times per week for 6-8 weeks for therapeutic exercise, gait training, therapeutic activity, manual therapy, patient education, and modalities as needed for pain control. documented in this [facility]05-06-2025 Instructions* Patient Instructions* Nessa Jenkins APRN.HR RECRUITER - 12/11/2024 2:09 PM EDT PATIENT PREOPERATIVE INSTRUCTIONS Dian Wiggins MD has scheduled you for your procedure at this surgery center: [facility]: [phone] --[address] [place] [address] Location is near [facility]. Please read below carefully for your personalized instructions. Dietary Restrictions: - No solid food after midnight. - You may have 12 ounces of clear liquids (water, clear juices such as apple juice or gatorade, carbonated beverages, clear tea, black coffee, jello) until 2 hours before scheduled arrival at facility. Medications: Unless instructed differently below, stay on all of your medications until your surgery. If you start any new medications after today's visit, please contact your surgeon. Please take these medications the morning of surgery: NONE If you are currently using a [id number] injectable or oral medication for diabetes or weight loss such as Dulaglutide (Trulicity), Exenatide (Byetta, Bydureon), Liraglutide (Victoza, Saxenda), Semaglutide (Ozempic, Wegovy, Rybelsus), or Tirzepatide (Mounjaro), the medicine should be stopped at least 7 days before surgery. These medicines can cause food to remain in your stomach for a very longtime and increase the risks from surgery and anesthesia. Not stopping the medication for a long enough time may result in your surgery being rescheduled. If you start any new medications after today's visit, please contact the surgeon's office. Blood Thinning Medications: - Stop NSAIDS (Ibuprofen, Advil, Aleve, Motrin, Celebrex, Mobic, etc.) 7 days before surgery, as directed by your surgeon. - Stop Aspirin 7 days before surgery, as directed by your surgeon. - Stop ALL herbal and dietary supplements 7 days before surgery. - You may take Tylenol (Acetaminophen) or any of your pain medications that do not contain aspirin or NSAIDS as needed. Important Reminders: - Candy, mints, and tobacco products are NOT permitted the morning of surgery. - Hearing aids, dentures and glasses may be worn the morning of surgery. - NO jewelry, body piercings, makeup, hairpins or contacts are to be worn the day of surgery. If you develop symptoms such as a fever, cold, or flu, or have other changes to your health within TWO DAYS of scheduled surgery or the morning of surgery, please contact the surgery center above. Personal Belongings: -Please have photo ID and insurance cards. -If you do not have a copy of advance directives on file with us, please bring a copy with you on the day of surgery. - Leave ALL valuables and money at home or with family members. For Outpatient Procedures: - YOU MUST HAVE A RESPONSIBLE REFINED SYRUP OPERATOR TAKE YOU HOME. A SUPERVISOR URANIUM PROCESSING OR WRAPPER STITCHER CANNOT BE MADE A RESPONSIBLE REFINED SYRUP OPERATOR. - We recommend that a responsible person stays with you overnight to take care of you. - You cannot stay in a hotel alone after outpatient surgery. You will not be permitted to have yoursurgery, if you do not have someone to take care of you. Arrival Time for Surgery: - The Surgery Center or hospital where you are having surgery will call the afternoon before surgery (or Tuesday for Tuesday surgery) with a scheduled arrival time. - If you have not heard by 4 pm, please contact the surgery center above. Please be aware that emergency situations arise, which may delay or change your surgical time. If this happens, we will notify you as soon as possible and regret any inconvenience. If you already have an Advance Directive, please fax a copy to [phone] or email to for it to be added to your chart. If you do not have an Advance Directive, you can find the appropriate form and more information at [email or web address]. We recommend that youcomplete the Advance Directive form found on the website and bring it with you the day of your surgery. It can be witnessed and scanned into your chart that day. Nessa Jenkins APRN.CHARLIE documented in this encounterOhio [facility]05-06-2025 History and physical note * Nessa Jenkins APRN.CNP - 12/11/2024 1:53 PM EDT Images from the original note were not included. [facility] HISTORY AND PHYSICAL EXAMINATION SERVICE DATE: 12/11/2024 SERVICE TIME: 1:53 PM PRIMARY CARE PHYSICIAN: Dionne Chambers DO REASON FOR VISIT: Vijaya Tinsley is a 29 year old female who is scheduled for CYSTOURETHROSCOPY W/INJECTION(S)FOR CHEMODENERVATION OF THE BLADDER (BOTOX) at the request of Dr. Dian Desai for consultation. My final recommendation will be communicated back to the requesting physician by way of shared medical record or letter. Assessment Patient has the following medical conditions which may affect kianna-operative course: PONV (postoperative nausea and vomiting) Assessment: states gets PONV with Anesthesia Asthma Assessment: childhood No inhaler use Lungs clear today Obesity, Class III, BMI >= 40 Assessment: Body mass index is 46.64 kg/m . Neurogenic bladder Assessment: with Bladder Stimulator in place Diplegic cerebral palsy (HCC) Assessment: Following with Neurology Ambulates in wheelchair, states she can stand and pivot I - PHYSICAL EVALUATION AIRWAY Patient intubated: No. Tracheostomy tube not present Mallampati: II. TM distance: >3 FB. Neck ROM: full ROM without neurological symptoms. Mouth opening: adequate. Short neck: no. Thick neck: yes Najera present: no Lip Bite Test: I Microretrognathia/Micronagthia/Recessed Chin: No DENTAL Dental findings: teeth intact. II - ANESTHESIA PLAN Anesthetic plan additional comments: *PACC/TCI - anesthesia choice. Beta Delia Monitoring Plan Post Procedure Analgesic Plan PONV (postoperative nausea and vomiting) Assessment: states gets PONV with Anesthesia Asthma Assessment: childhood No inhaler use Lungs clear today Obesity, Class III, BMI >= 40 Assessment: Body mass index is 46.64 kg/m . Neurogenic bladder Assessment: with Bladder Stimulator in place Diplegic cerebral palsy (HCC) Assessment: Following with Neurology Ambulates in wheelchair, states she can stand and pivot ANESTHESIA FINDINGS: Intubation History: No history of difficult intubation. No abnormal airway history Significant Anesthesia Considerations: potential postop nausea/vomiting Airway History: No history of difficult airway No abnormal airway history Abad Activity Status Index: METS: Walk indoors, such as around the house (1.75 METs) Do light work around the house, such as dusting or washing dishes (2.70 METs) Take care of self; that is eating, dressing, bathing, using the toilet (2.75 METs) DASI Score: 7.2 (Spastic Paraplegia ) Patient denies any chest pain or undue shortness of breath with the above physical activity. Patient is limited most or all of the time (uses scooter, mobility device) (presents in wheelchair). STOP-Bang Score: BMI greater than 35 kg/m^2 Denies snoring loudly Denies feeling tired, fatigued, or sleepy during the daytime Has not been observed to stop breathing or choking/gasping during sleep Denies having high blood pressure Patient 50 years old or younger Does not have a large neck Non-male patient STOP-Bang Score: 1 [id number] Score: Age: <65 Sex: female CHF history: No Hypertension history: No Stroke/TIA/thromboembolism history: No Vascular disease history: No Diabetes history: No [id number] Score: 1 ARISCAT Score: Age: <=50 Preoperative SpO2: >=96% Respiratory infection in the last month: No Preoperative anemia: Yes Duration of surgery: <2 hrs Emergency procedure: No ARISCAT Score: 11 Prepared for surgery: This patient is optimally prepared for surgery. CONSULTS: Patient does not require consults for optimization at this time. 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 Patient has bladder stimulator in placed. She's doing better with interstim but still has UUI that is bothersome. Discussed doing dual therapy with adding medication or botox. She's trialed gemtessa which helps but not completely therefore would like to do botox. REVIEW OF SYSTEMS: PAIN ASSESSMENT: General: No weight loss, malaise or fevers. Neuro: No history of TIA's, stroke, MORTGAGE COUNSELOR tumor, impaired sensorium, hemiplegia, paraplegia or quadraplegia. No neurological symptoms or problems. +Spastic Paraplegia Respiratory: No history of current cough or dyspnea, or pneumonia in the past 6 weeks. No history of respiratory/pulmonary symptoms or problems. Cardiovascular: No history of HTN requiring medication, no history of angina, CHF, RI, cardiac surgery or stents. Denies rest pain, gangrene or revascularization/amputation for PVD. No history of cardiovascular symptoms or problems. GI: No history of GI symptoms or problems. No history of esophageal varices, recent ascites, or ETOH greater than 2 drinks per day. 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 : Denies, Patient's last menstrual period was 06/04/2022. Endocrine: Positive for Damián's No history of diabetes. Has not taken steroids within the past 30 days Hematology: No history of bleeding or clotting disorder. Pt is not taking anti- coagulation or platelet medications. No history of hematological symptoms or problems. Oncology: No history of CA metastasis, chemo within 30 days, or radiotherapy within 90 days. Has not lost 10% of body wt in 6 months. No history of oncological symptoms or problems. Psych: No history of psychiatric symptoms or problems. Marijuana use: No Musculoskeletal: Joint pain Skin: Negative for lesions, rash and itching. Implanted Devices: Yes Bladder Stimulator The patient has the following: ACTIVE PROBLEM LIST Oab (Overactive Bladder) Neurogenic Bladder Asthma (Hcc) Diplegic Cerebral Palsy (Hcc) Fatty (Change Of) Liver, Not Elsewhere Classified Class 3 Severe Obesity in Adult Obesity, Class III, BMI >= 40 Moderate Protein-Calorie Malnutrition (Hcc) Ponv (Postoperative Nausea and Vomiting) Covid Immunization Dates Current Care Gaps Covid-19 Vaccine ( season) Overdue since 04/08/2024 08/20/2021 Imm Admin: COVID-19 original vaccine, age 12+ yr, monovalent (PFIZER- BIONTECH - PURPLE TOP) 10/30/2020 Imm Admin: COVID-19 original vaccine, age 12+ yr, monovalent (PFIZER- BIONTECH - PURPLE TOP) 10/09/2020 Imm Admin: COVID-19 original vaccine, age 12+ yr, monovalent (PFIZER- BIONTECH - PURPLE TOP) PAST MEDICAL HISTORY Diagnosis Date Cerebral palsy (HCC) Class 3 severe obesity in adult 06/11/2022 PAST SURGICAL HISTORY Procedure Laterality Date ANKLE SURGERY HX Left Left ankle infection ARTHROTOMY W/MENISCUS REPAIR KNEE 2021 ARTHROTOMY W/MENISCUS REPAIR KNEE 2023 KNEE SURGERY HX Right 11/23/2024 ORAL SURGERY PROCEDURE root canal PAST SURGICAL HISTORY OF bladder stimulator FAMILY HISTORY Problem Relation Age of Onset Anesthesia Problems No Family History Social History Tobacco Use Smoking status: Never Smokeless tobacco: Never Substance Use Topics Alcohol use: Not Currently Drug use: Never Prior to Admission medications as of 12/11/24 1407 Not on File No medication comments found. ALLERGIES Allergen Reactions Grass Pollen-Bermud* Unknown Amoxicillin Diarrhea Vancomycin Hives Burning sensation Cetirizine Hives, Other: See Comments, Rash hives Objective PHYSICAL EXAM: VITALS: BP 132/85 Pulse 85 Temp (Src) 98 (Oral) Resp 16 Ht 5' 2 (1.58m) Wt 255 lb (115.7kg) SpO2 100% LMP 06/04/2022 BMI 46.63 kg/(m^2). General: Alert and oriented, No acute distress, Obese Skin: Normal color, no rash, no lesions. HEENT: EOM, pupils equal, round and reactive. Cardiovascular: Normal S1 & S2, no rubs, murmurs or gallops. No JVD. Pulse regular. Lungs: Normal breath sounds, no wheezes or crackles. Abdomen: Positive bowel sounds Extremities: No deformity, no edema or tenderness, no joint swelling or clubbing. Neurological: Normal Cognition wheelchair bound Pulses:radial pulses normal +2. Diagnostic tests reviewed for today's visit: ECG (Electrocardiogram) 12 Lead Component Ref Range & Units 1 yr ago Ventricular Rate bpm 105 Atrial Rate ms 106 P-R Interval ms 159 P [place] deg 30 QRS Duration ms 70 QT ms 330 QTc ms 436 R [place] deg 23 T [place] deg 30 Resulting Agency [employer] ECG Narrative Performed by [employer] ECG - OTHERWISE NORMAL ECG - Sinus tachycardia Low voltage, precordial leads No previous ECG available for comparison Reviewed and Interpreted by: Chente Zavala 23-Apr-2023 11:21:52 Adult Transthoracic Echocardiogram Report Name: VIJAYA TINSLEY Study Date: 04/15/2023 : 1995 Height: 62 in MPI: [id number] Age: 27 yrs Weight: 250 lb BSA: 2.1 m2 Gender: Female BP: 118/76 mmHg Patient Class: Outpatient Patient Location: [place] Study Location: [facility] Ordering Physician: LAURA CUNHA Reason For Study: Cardiac Cause of chest pain, sob and/or palpitations History: Palpitations ++++++++++++++++++++++++ +Interpretation Summary+ ++++++++++++++++++++++++ Essentially normal echocardiographic findings Procedure: Two patient identifiers were confirmed prior to performing this exam. A complete transthoracic echocardiogram was performed (2D, M-mode, Spectral and Color Flow Doppler imaging). The image quality of this exam is: adequate. Left Ventricle: The left ventricle is normal in size. The left ventricle is normal in thickness. Considering 2D visualization and technical calculations the left ventricular ejection fraction estimate is 55-60%. No regional wall motion abnormalities noted. There is no evidence of a thrombus in the left ventricle. There is no evidence of left ventricular diastolic dysfunction. Right Ventricle: The right ventricle is normal in size, thickness and function. Atria: The left atrium is normal in size. The right atrium is normal in size. There is no evidence of an interatrial shunt by color Doppler. Mitral Valve: The mitral valve leaflets appear normal. There is no evidence of stenosis or prolapse. There is no mitral regurgitation noted. Tricuspid Valve: The tricuspid valve leaflets are thin and pliable and the valve motion is normal. There is trace tricuspid regurgitation. There is no evidence of tricuspid valve stenosis. Aortic Valve: The aortic valve is not well visualized. There is no aortic regurgitation noted. There is no evidence of aortic stenosis. Pulmonic Valve: The pulmonic valve is not well visualized. There is no pulmonic regurgitation noted. There is no evidence of pulmonic stenosis. Great Vessels: The aortic valve annulus measures 2.0 cm. The aortic root at the sinuses of Valsalva measures 2.8 cm. The aortic root at the sino-tubular junction measures 2.1 cm. The proximal ascending aorta measures 2.6 cm. The inferior vena cava is normal in size with respiratory collapse, indicating a right atrial pressure of approximately 3 mmHg. Pericardium: There is no evidence of a pericardial effusio Instructions Given to Patient: Instructions located in the after visit summary. Patient given verbal and written preop instructions and voices comprehension and compliance. SIGNATURE: Nessa Jenkins APRN.CNP PATIENT NAME: Vijaya Tinsley DATE: 12/11/2024 TIME: 2:24 PM [facility]05-06-2025 History and physical note* Nessa Jenkins APRN.CNP - 12/11/2024 1:53 PM EDT Images from the original note were not included. [facility] HISTORY AND PHYSICAL EXAMINATION SERVICE DATE: 12/11/2024 SERVICE TIME: 1:53 PM PRIMARY CARE PHYSICIAN: Dionne Chambers DO REASON FOR VISIT: Vijaya Tinsley is a 29 year old female who is scheduled for CYSTOURETHROSCOPY W/INJECTION(S)FOR CHEMODENERVATION OF THE BLADDER (BOTOX) at the request of Dr. Dian Desai for consultation. My final recommendation will be communicated back to the requesting physician by way of shared medical record or letter. Assessment Patient has the following medical conditions which may affect kianna-operative course: PONV (postoperative nausea and vomiting) Assessment: states gets PONV with Anesthesia Asthma Assessment: childhood No inhaler use Lungs clear today Obesity, Class III, BMI >= 40 Assessment: Body mass index is 46.64 kg/m . Neurogenic bladder Assessment: with Bladder Stimulator in place Diplegic cerebral palsy (HCC) Assessment: Following with Neurology Ambulates in wheelchair, states she can stand and pivot I - PHYSICAL EVALUATION AIRWAY Patient intubated: No. Tracheostomy tube not present Mallampati: II. TM distance: >3 FB. Neck ROM: full ROM without neurological symptoms. Mouth opening: adequate. Short neck: no. Thick neck: yes Najera present: no Lip Bite Test: I Microretrognathia/Micronagthia/Recessed Chin: No DENTAL Dental findings: teeth intact. II - ANESTHESIA PLAN Anesthetic plan additional comments: *PACC/TCI - anesthesia choice. Beta Delia Monitoring Plan Post Procedure Analgesic Plan PONV (postoperative nausea and vomiting) Assessment: states gets PONV with Anesthesia Asthma Assessment: childhood No inhaler use Lungs clear today Obesity, Class III, BMI >= 40 Assessment: Body mass index is 46.64 kg/m . Neurogenic bladder Assessment: with Bladder Stimulator in place Diplegic cerebral palsy (HCC) Assessment: Following with Neurology Ambulates in wheelchair, states she can stand and pivot ANESTHESIA FINDINGS: Intubation History: No history of difficult intubation. No abnormal airway history Significant Anesthesia Considerations: potential postop nausea/vomiting Airway History: No history of difficult airway No abnormal airway history Abad Activity Status Index: METS: Walk indoors, such as around the house (1.75 METs) Do light work around the house, such as dusting or washing dishes (2.70 METs) Take care of self; that is eating, dressing, bathing, using the toilet (2.75 METs) DASI Score: 7.2 (Spastic Paraplegia ) Patient denies any chest pain or undue shortness of breath with the above physical activity. Patient is limited most or all of the time (uses scooter, mobility device) (presents in wheelchair). STOP-Bang Score: BMI greater than 35 kg/m^2 Denies snoring loudly Denies feeling tired, fatigued, or sleepy during the daytime Has not been observed to stop breathing or choking/gasping during sleep Denies having high blood pressure Patient 50 years old or younger Does not have a large neck Non-male patient STOP-Bang Score: 1 [id number] Score: Age: <65 Sex: female CHF history: No Hypertension history: No Stroke/TIA/thromboembolism history: No Vascular disease history: No Diabetes history: No [id number] Score: 1 ARISCAT Score: Age: <=50 Preoperative SpO2: >=96% Respiratory infection in the last month: No Preoperative anemia: Yes Duration of surgery: <2 hrs Emergency procedure: No ARISCAT Score: 11 Prepared for surgery: This patient is optimally prepared for surgery. CONSULTS: Patient does not require consults for optimization at this time. 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 Patient has bladder stimulator in placed. She's doing better with interstim but still has UUI that is bothersome. Discussed doing dual therapy with adding medication or botox. She's trialed gemtessa which helps but not completely therefore would like to do botox. REVIEW OF SYSTEMS: PAIN ASSESSMENT: General: No weight loss, malaise or fevers. Neuro: No history of TIA's, stroke, MORTGAGE COUNSELOR tumor, impaired sensorium, hemiplegia, paraplegia or quadraplegia. No neurological symptoms or problems. +Spastic Paraplegia Respiratory: No history of current cough or dyspnea, or pneumonia in the past 6 weeks. No history of respiratory/pulmonary symptoms or problems. Cardiovascular: No history of HTN requiring medication, no history of angina, CHF, RI, cardiac surgery or stents. Denies rest pain, gangrene or revascularization/amputation for PVD. No history of cardiovascular symptoms or problems. GI: No history of GI symptoms or problems. No history of esophageal varices, recent ascites, or ETOH greater than 2 drinks per day. 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 : Denies, Patient's last menstrual period was 06/04/2022. Endocrine: Positive for Damián's No history of diabetes. Has not taken steroids within the past 30 days Hematology: No history of bleeding or clotting disorder. Pt is not taking anti- coagulation or platelet medications. No history of hematological symptoms or problems. Oncology: No history of CA metastasis, chemo within 30 days, or radiotherapy within 90 days. Has not lost 10% of body wt in 6 months. No history of oncological symptoms or problems. Psych: No history of psychiatric symptoms or problems. Marijuana use: No Musculoskeletal: Joint pain Skin: Negative for lesions, rash and itching. Implanted Devices: Yes Bladder Stimulator The patient has the following: ACTIVE PROBLEM LIST Oab (Overactive Bladder) Neurogenic Bladder Asthma (Hcc) Diplegic Cerebral Palsy (Hcc) Fatty (Change Of) Liver, Not Elsewhere Classified Class 3 Severe Obesity in Adult Obesity, Class III, BMI >= 40 Moderate Protein-Calorie Malnutrition (Hcc) Ponv (Postoperative Nausea and Vomiting) Covid Immunization Dates Current Care Gaps Covid-19 Vaccine ( season) Overdue since 04/08/2024 08/20/2021 Imm Admin: COVID-19 original vaccine, age 12+ yr, monovalent (PFIZER- BIONTECH - PURPLE TOP) 10/30/2020 Imm Admin: COVID-19 original vaccine, age 12+ yr, monovalent (PFIZER- BIONTECH - PURPLE TOP) 10/09/2020 Imm Admin: COVID-19 original vaccine, age 12+ yr, monovalent (PFIZER- BIONTECH - PURPLE TOP) PAST MEDICAL HISTORY Diagnosis Date Cerebral palsy (HCC) Class 3 severe obesity in adult 06/11/2022 PAST SURGICAL HISTORY Procedure Laterality Date ANKLE SURGERY HX Left Left ankle infection ARTHROTOMY W/MENISCUS REPAIR KNEE 2021 ARTHROTOMY W/MENISCUS REPAIR KNEE 2023 KNEE SURGERY HX Right 11/23/2024 ORAL SURGERY PROCEDURE root canal PAST SURGICAL HISTORY OF bladder stimulator FAMILY HISTORY Problem Relation Age of Onset Anesthesia Problems No Family History Social History Tobacco Use Smoking status: Never Smokeless tobacco: Never Substance Use Topics Alcohol use: Not Currently Drug use: Never Prior to Admission medications as of 12/11/24 1407 Not on File No medication comments found. ALLERGIES Allergen Reactions Grass Pollen-Bermud* Unknown Amoxicillin Diarrhea Vancomycin Hives Burning sensation Cetirizine Hives, Other: See Comments, Rash hives Objective PHYSICAL EXAM: VITALS: BP 132/85 Pulse 85 Temp (Src) 98 (Oral) Resp 16 Ht 5' 2 (1.58m) Wt 255 lb (115.7kg) SpO2 100% LMP 06/04/2022 BMI 46.63 kg/(m^2). General: Alert and oriented, No acute distress, Obese Skin: Normal color, no rash, no lesions. HEENT: EOM, pupils equal, round and reactive. Cardiovascular: Normal S1 & S2, no rubs, murmurs or gallops. No JVD. Pulse regular. Lungs: Normal breath sounds, no wheezes or crackles. Abdomen: Positive bowel sounds Extremities: No deformity, no edema or tenderness, no joint swelling or clubbing. Neurological: Normal Cognition wheelchair bound Pulses:radial pulses normal +2. Diagnostic tests reviewed for today's visit: ECG (Electrocardiogram) 12 Lead Component Ref Range & Units 1 yr ago Ventricular Rate bpm 105 Atrial Rate ms 106 P-R Interval ms 159 P [place] deg 30 QRS Duration ms 70 QT ms 330 QTc ms 436 R [place] deg 23 T [place] deg 30 Resulting Agency [employer] ECG Narrative Performed by [employer] ECG - OTHERWISE NORMAL ECG - Sinus tachycardia Low voltage, precordial leads No previous ECG available for comparison Reviewed and Interpreted by: Chente Zavala 23-Apr-2023 11:21:52 Adult Transthoracic Echocardiogram Report Name: VIJAYA TINSLEY Study Date: 04/15/2023 : 1995 Height: 62 in MPI: [id number] Age: 27 yrs Weight: 250 lb BSA: 2.1 m2 Gender: Female BP: 118/76 mmHg Patient Class: Outpatient Patient Location: [place] Study Location: [facility] Ordering Physician: LAURA CUNHA Reason For Study: Cardiac Cause of chest pain, sob and/or palpitations History: Palpitations ++++++++++++++++++++++++ +Interpretation Summary+ ++++++++++++++++++++++++ Essentially normal echocardiographic findings Procedure: Two patient identifiers were confirmed prior to performing this exam. A complete transthoracic echocardiogram was performed (2D, M-mode, Spectral and Color Flow Doppler imaging). The image quality of this exam is: adequate. Left Ventricle: The left ventricle is normal in size. The left ventricle is normal in thickness. Considering 2D visualization and technical calculations the left ventricular ejection fraction estimate is 55-60%. No regional wall motion abnormalities noted. There is no evidence of a thrombus in the left ventricle. There is no evidence of left ventricular diastolic dysfunction. Right Ventricle: The right ventricle is normal in size, thickness and function. Atria: The left atrium is normal in size. The right atrium is normal in size. There is no evidence of an interatrial shunt by color Doppler. Mitral Valve: The mitral valve leaflets appear normal. There is no evidence of stenosis or prolapse. There is no mitral regurgitation noted. Tricuspid Valve: The tricuspid valve leaflets are thin and pliable and the valve motion is normal. There is trace tricuspid regurgitation. There is no evidence of tricuspid valve stenosis. Aortic Valve: The aortic valve is not well visualized. There is no aortic regurgitation noted. There is no evidence of aortic stenosis. Pulmonic Valve: The pulmonic valve is not well visualized. There is no pulmonic regurgitation noted. There is no evidence of pulmonic stenosis. Great Vessels: The aortic valve annulus measures 2.0 cm. The aortic root at the sinuses of Valsalva measures 2.8 cm. The aortic root at the sino-tubular junction measures 2.1 cm. The proximal ascending aorta measures 2.6 cm. The inferior vena cava is normal in size with respiratory collapse, indicating a right atrial pressure of approximately 3 mmHg. Pericardium: There is no evidence of a pericardial effusio Instructions Given to Patient: Instructions located in the after visit summary. Patient given verbal and written preop instructions and voices comprehension and compliance. SIGNATURE: Nessa Jenkins APRN.CNP PATIENT NAME: Vijaya Tinsley DATE: 12/11/2024 TIME: 2:24 PM documented [facility] History of Present illness Narrative* Parker Queen, PT - 12/10/2024 1:00 PM EDT Physical Therapy Physical Therapy Follow Up Visit Patient Name: Vijaya Tinsley Today's Date: 12/10/2024 Visit: 2 Time In: 1315 Time Out: 1345 Therapeutic Exercise: 8 minutes Therapeutic Activity: 4 minutes Manual Therapy: 1 minutes Gait trainin minutes Subjective: Patient was seen today for follow up visit S/P Right knee arthroscopy (DOS: 11/23/24). Patient is complaining of 4/10 pain in right knee when weight bearing. Patient currently lives with mother in 1 story home with ramp entry. PMHx: Cerebral Palsy, right meniscus tear, asthma. 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 Patient continues to report difficulty with terminal extension when weight bearing. She says that she has only walked minimally because she is afraid of her knee giving out on her. Precautions: WBAT Right LE Treatment: Therapeutic Activity: Transfer training continued from lift chair and from wheelchair. Attempted transfers with different positioning. Therapeutic Exercise: Patient continued with quad sets and repeated sit to stand transfers. Education with focus on keeping knees when standing to keep weight centralized over linearly. Shewas able to return demonstrate only 50% of the time with many attempts resulting in genu valgum of right knee. She was educated on the detriments of this. Patient also was instructed in and performed standing marching exercise. She was consistent with this ability with right LE, but had moderate difficulty with left LE marching. Gait Training: Gait training today with use of wheeled walker. Patient has significant difficulty clearing toes on bilateral feet. She was able to ambulate x10 feet with CGA+1. She demonstrated improved foot clearance of right foot today. Manual Therapy: Passive range of motion to right knee. Objective: Integumentary: 4 incision sites inspected. No signs of infection. Right knee AAROM: WFL degrees Right knee strength: 3/5 flexion; 3/5 extension Gait: Patient demonstrates the ability to ambulate x10 feet with toe drag bilaterally. She states that she has always had difficulty with foot clearance, but that it is much worse today than in the past. Transfers: CGA+1 for sit to stand from lower surfaces. Assessment: Patient is demonstrating pain and weakness of right knee secondary and difficulty walking secondaryto recent right knee surgery and underlying cerebral palsy. Functional Measures= FIM Scoring: Transfers= 5/7, Ambulation= 1/7, Stairs= 08/14 Prognosis: Good Goals: Short Term (2-3 weeks): Patient will be independent and compliant with home exercise program. Patient will be independent/ modified independent with all transfers. Patient will ambulate x20 feet with SBA+1 with device. [facility]: (4-8 weeks) Patient will demonstrate full active range of motion in right knee. Patient will demonstrate 3+/5 or better strength in right knee flexion and extension. Patient will safely ambulate x50 feet with consistent foot clearance with use of appropriate devicewith SBA+1. Patient will ambulate with consistent foot clearance to reduce risk for falls. Plan: Patient will be seen 2-3 times per week for 6-8 weeks for therapeutic exercise, gait training, therapeutic activity, manual therapy, patient education, and modalities as needed for pain control. documented in this encounterHawthorn Children's Psychiatric [id number] Telephone encounter Note* Telephone Encounter - Sita Conteh RN - 12/10/2024 10:08 AM EDT Pt needs to reschedule surgery on 12/12 due to transportation. She requests 12/19 and needs to be the last case of the day. Sita Conteh RN [facility]05-05-2025 Miscellaneous Notes* Telephone Encounter - Sita Conteh RN - 12/10/2024 10:08 AM EDT Pt needs to reschedule surgery on 12/12 due to transportation. She requests 12/19 and needs to be the last case of the day. Sita Conteh RN documented in this encounterOhio [facility]05-02-[facility]25 Evaluation note* Diagnosis Onset Date Resolution Status Admit Date UTI (urinary tract infection) acute December 07, 2024 9:14am [facility] Work Phone: 1(455) 950-218905-02-2025 History of Present illness Narrative* Markie Segura NP - 12/07/2024 9:45 AM EDT Images from the original note were not included. HISTORY OF PRESENT ILLNESS: POST OP PT Vijaya Tinsley is an 29 y.o. @ female. 1ST PO RT KNEE SCOPE 11/23/24 (2 WKS) @ [facility]. PAIN DIFFUSE IN KNEE WITH WB. NO PAIN MEDS. USING ICE PRN. DOES NOT WAKE AT HS. DENIES DRAINAGE. STITCHES INTACT, REMOVED TODAY. INCISIONS HEALING WELL. REVIEW OF SYSTEMS: General: Denies fever, fatigue or weight loss Lungs: Denies SOB Cardio: Denies chest pain GI: Denies indigestion or abdominal pain Neuro: Denies numbness or tingling, denies new onset paralysis Musculoskeletal: ( see note) PHYSICAL EXAM: Right Knee Exam Right knee exam is normal. Tenderness Right knee tenderness location: Compartments soft, diffuse pain in knee. Range of Motion The patient has normal right knee ROM. Extension: 5 Flexion: 90 (tightness on terminal flexion) Tests Varus: negative Valgus: negative Other Erythema: absent Scars: present (Portals well healing, sutures removed, no erythema, drainge or discharge, no dehisence) Sensation: normal Pulse: present Swelling: mild Effusion: effusion (consistent with surgery) present Comments: Has hx of CP. Uses wheelchair mostly. Negative Homans and negative Quinn were noted bilaterally to lower extremities. Incision was healing without evidence of infection Physical Exam Results Procedures No orders of the defined types were placed in this encounter. ASSESSMENT: ICD-10-CM 1. S/P right knee arthroscopy Z98.890 PLAN: Assessment & Plan 2 weeks s/p RT Knee Arthroscopy: RT knee chondroplasty and plica removal. Plan: Discussed surgery and reviewed surgical images. I recommend patient continue to work with PT but educated her that she will have pain as she has not been ambulating with her walker for almost a year prior to surgery. Continue working on ROM. Questions answered in laymen terms at the bedside. The diagnosis, home exercise plan and any ongoing restrictions/ recommendations reviewed. If unable to be reached in office, Irecommend evaluation at nearest Emergency Room if any symptoms worsened or new symptoms develop forrequiring urgent evaluation. Markie Segura BUSINESS UNIT CONTROLLER-HR RECRUITER documented in this encounterHawthorn Children's Psychiatric [id number] NoteHNO ID: [id number] Author: SWATI BRENNER RN Service: ? Author Type: Registered Nurse Type: Progress Notes Filed: 12/05/2024 14:10 Note Text: RN Pre Visit Questionnaire for upcoming [facility] appointment PROCEDURE : CYSTOURETHROSCOPY W/INJECTION(S) FOR CHEMODENERVATION OF THE BLADDER (BOTOX) SURGEON : Dr. Aggarwal PROCEDURE DATE : 12/12/2024 [facility] APPT : 12/11/2024 Prepared for surgery: RN Pre Visit Questionnaire completed by [facility] chart review and completed with patient. Do you see a packing machine inspector or other specialist within or outside of [facility]? Yes Endocrine: [facility] with Sylvia Brady MD (08/30/2024) Any new changes in your symptoms since you last saw your specialist? No Are you a Pre Diabetic/Diabetic/Weight loss/CHF medications No Weight loss: Zepbound not started waiting for insurance approval. Any recent hospitalizations within [facility] or outside facilities in the past 3 months No Please have an up-to-date list of medications in preparation for your PACC visit. . SIGNATURE: Swati Brenner RN PATIENT NAME: Vijaya Tinsley DATE: December 05, 2024 TIME: 2:03 PM PAGER/CONTACT [facility]ONE:[id number] History of Present illness Narrative* Swati Brenner RN - 12/05/2024 2:03 PM EDT RN Pre Visit Questionnaire for upcoming PACC appointment PROCEDURE : CYSTOURETHROSCOPY W/INJECTION(S) FOR CHEMODENERVATION OF THE BLADDER (BOTOX) SURGEON : Dr. Aggarwal PROCEDURE DATE : 12/12/2024 [facility] APPT : 12/11/2024 Prepared for surgery: RN Pre Visit Questionnaire completed by Epic chart review and completed with patient. Do you see a packing machine inspector or other specialist within or outside of [facility]? Yes Endocrine: [facility] with Sylvia Brady MD (08/30/2024) Any new changes in your symptoms since you last saw your specialist? No Are you a Pre Diabetic/Diabetic/Weight loss/CHF medications No Weight loss: Zepbound not started waiting for insurance approval. Any recent hospitalizations within [facility] or outside facilities in the past 3 months No Please have an up-to-date list of medications in preparation for your PACC visit. . SIGNATURE: Swati Brenner RN PATIENT NAME: Vijaya Tinsley DATE: December 05, 2024 TIME: 2:03 PM PAGER/CONTACT PHONE: documented in [facility] encounter[facility] History of Present illness Narrative* Parker Queen, PT - 12/05/2024 1:00 PM EDT Physical Therapy Physical Therapy Evaluation Patient Name: Vijaya Tinsley Today's Date: 11/25/2024 Visit: 1 Time In: 1315 Time Out: 1345 Evaluation: 15 minutes Therapeutic Exercise: 3 minutes Therapeutic Activity: 1 minutes Manual Therapy: 1 minutes Gait trainin minutes Subjective: Patient was seen today for initial evaluation S/P Right knee arthroscopy (DOS: 11/23/24). Patient is complaining of 4/10 pain in right knee when weight bearing. Patient currently lives with mother in 1 story home with ramp entry. PMHx: Cerebral Palsy, right meniscus tear, asthma. 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 Patient had meniscus repair performed November of 2023. She states that she got very little pain relief following that surgery. She says that she has not walked in approximately one year and has spent the majority of her time in wheelchair. At this time, she is reporting the most difficulty straightening her knee during ambulation. She denies difficulty sleeping at night. Precautions: WBAT Right LE Treatment: Therapeutic Activity: Transfer training performed from various surfaces. Therapeutic Exercise: Patient was instructed in quad sets and repeated sit to stand from lift chairwith focus on allowing right LE to perform 50% of the task. Gait Training: Gait training today with use of wheeled walker. Patient has significant difficulty clearing toes on bilateral feet. She was able to ambulate x10 feet with CGA+1. Manual Therapy: Passive range of motion to right knee. Objective: Integumentary: 4 incision sites inspected. No signs of infection. Right knee AAROM: WFL degrees Right knee strength: 3/5 flexion; 3/5 extension Gait: Patient demonstrates the ability to ambulate x10 feet with toe drag bilaterally. She states that she has always had difficulty with foot clearance, but that it is much worse today than in the past. Transfers: CGA+1 for sit to stand from lower surfaces. Assessment: Patient is demonstrating pain and weakness of right knee secondary and difficulty walking secondaryto recent right knee surgery and underlying cerebral palsy. Functional Measures= FIM Scoring: Transfers= 12/12, Ambulation= 08/14, Stairs= 08/14 Prognosis: Good Goals: Short Term (2-3 weeks): Patient will be independent and compliant with home exercise program. Patient will be independent/ modified independent with all transfers. Patient will ambulate x20 feet with SBA+1 with device. [facility]: (4-8 weeks) Patient will demonstrate full active range of motion in right knee. Patient will demonstrate 3+/5 or better strength in right knee flexion and extension. Patient will safely ambulate x50 feet with consistent foot clearance with use of appropriate devicewith SBA+1. Patient will ambulate with consistent foot clearance to reduce risk for falls. Plan: Patient will be seen 2-3 times per week for 6-8 weeks for therapeutic exercise, gait training, therapeutic activity, manual therapy, patient education, and modalities as needed for pain control. documented in this encounterHawthorn Children's Psychiatric [id number] History of Present illness Narrative* Dian Wiggins MD - 12/04/2024 1:00 PM EDT [facility] FOR FEMALE PELVIC MEDICINE AND RECONSTRUCTIVE SURGERY HISTORY OF PRESENT ILLNESS: Vijaya Tinsley is a 29 year old female with neurogenic 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 07/27/22 visit, fell POD#1 on her butt and had less efficacy since then. Today, she voids q2.5-3hr,ISMAEL <UUI (2-3pads) with some days ok . She was doing well with program 5 @0.7 during trial period with very little leakage. She increased to 0.9mA on program 5 yesterday with little improvement. Xray ordered to r/o lead migration. Switched to program A (0+, 1-) at 0.3mA, felt at buttocks no leg. From my note on 07/27/22: Program 5 (3+, 0 and 1-) at 0.9mA --> decreased to 0.8 mA, felt in buttock midline Program 1 (3+, 0-) --> vagina 0.6mA, felt down right leg Program 2 (3+, 1-)--> buttock 0.5mA, no leg Program 3(0+, 2-) --> buttock 0.7mA, no leg Program 4 (0-, 3-)--> buttock 1.3mA, no leg Program 6 (3+, 2 and 1-)-->1 mA upper back Program 7(0+, 2 and 3-)--> 0.9mA buttock, no leg Program A (0+, 1-)--> 0.3mA, buttock, no leg Impedence good 09/10/22 visit, on program 7. voids q3.5hrs-5hrs, UI (2-3pads but sometime soaked something, but it is better than before), can hold it for 45mins before it was not at all. Reports some pain during charging at site of IPG if it's at the wrong location that lasts a few seconds. 11/16/22 visit, programming not working as well. Currently on program 7; 0.8mA. Not as good as during trial. Recent constipation, now taking senna prn with relief. Voids q3-4hrs, UUI (3pads/d, a little bit soaked). Will have rep reach out to assist with programming. Possible xray if no improvement with new program. Today, program 6 @0.7mA . Reports she has good day and bad days with symptoms but overall has 75-80% improvement. Continues with vesicare. Voids q2-4hrs. Feels like her bladder doesn't full empty at times. UUI worse in the morning, Will wake up wake some days. 3pads/d.Experiencing constipation, states it's better but not great. Reports trouble with device connecting to the bariatric program coordinator. Reports right leg pain with lifting for 1 month 11/25/23 visit per Mary MCKENZIE, program 6 no longer working. Remain on program A, d/c mirabegron, start gemtesa 75mg. 09/07/24 VV per Mary MCKENZIE, symptoms varied while on gemtesa 75 mg; some days better than others. Reports she is urinating >4 times a day, and 0 times at night. Reports she is incontinent 4 timesduring the day. Change to program B. Continue gemtesa 75mg. Est. With Dr Valerio in [place]moving there. Today, states her stimulator has not been working well since knee surgery on 11/23. Currently has a +Ucx (11/29 E coli- tx bactrim), feels UTI symptoms (dysuria, headache, nauseous) have improved sincecompleting bactrim. States every time she turns off interstim for surgery, she has a hard time getting it to turn on and function properly. Feel the therapy has been intermittent in nature. Reports 2-3UTIs/year. Would like to know if she can have something to prevent UTIs. + ISMAEL =UUI 2-3 episodes/d. 2-3 pads/d. +constipation, reports her Urologist in [place] said she has neurogenic bowel based on symptoms of not fully emptying bowels. Bernietessa works but still has UI. *Program B (0-, 1-, 3-, 4+), 0.4mA, felt right buttock - current program and reports doing well on this program Impedance: good Battery 100% HISTORIES: PAST MEDICAL HISTORY PAST MEDICAL HISTORY Diagnosis Date Class 3 severe obesity in adult (HCC) 06/11/2022 PAST SURGICAL HISTORY PAST SURGICAL HISTORY Procedure Laterality Date ANKLE SURGERY HX Left Left ankle infection KNEE SURGERY HX ORAL SURGERY PROCEDURE root canal FAMILY HISTORY FAMILY HISTORY Problem Relation Age of Onset Anesthesia Problems No Family History SOCIAL HISTORY Social History Tobacco Use Smoking status: Never Smokeless tobacco: Never Substance Use Topics Alcohol use: Not Currently Drug use: Never MEDICATIONS: Current Outpatient Medications Medication Sig phenazopyridine (PYRIDIUM) 200 mg tablet Take 1 tablet by mouth three times a day as needed for up to 5 days. sulfamethoxazole-trimethoprim (BACTRIM DS) 800-160 mg per tablet Take 1 tablet by mouth two times aday for 5 days. vibegron (GEMTESA) 75 mg tablet Take 1 tablet by mouth once daily. tirzepatide, weight loss (ZEPBOUND) 2.5 mg/0.5 mL pen injector Inject 2.5 mg subcutaneously one time a week. gabapentin (NEURONTIN) 300 mg capsule Take 1 capsule by mouth three times a day for 180 days. ZEPBOUND 2.5 mg/0.5 mL pen injector INJECT 2.5 MG (0.5 ML) SUBCUTANEOUSLY WEEKLY FOR 4 WEEKS No current facility-administered medications for this visit. CURRENT ALLERGIES: Allergies As of Date: 12/04/2024 Allergen Noted Reaction GRASS POLLEN-BERMUDA, STANDARD 08/08/2008 Unknown AMOXICILLIN 01/15/2022 Diarrhea VANCOMYCIN 06/30/2019 Hives CETIRIZINE 03/16/2013 Hives, Other: See Comments, and Rash Fully Assessed 08/30/2024 PHYSICAL EXAM: General: No acute distress, well appearing IMPRESSION: ASSESSMENT/PLAN: 1. OAB (overactive bladder) - ICD9: 596.51, ICD10: N32.81 (primary diagnosis) She's doing better with interstim but still has UUI that is bothersome. Discussed doing dual therapy with adding medication or botox. She's trialed gemtessa which helps but not completely therefore would like to do botox. She prefers with anesthesia. OR cysto, botox 100units. Just finished abx. 2. Acute cystitis without hematuria - ICD9: 595.0, ICD10: N30.00 Just completed abx. Much better. 3. Stress incontinence of urine - ICD9: TNY3429, ICD10: N39.3 We discussed etiology and options for treatment. Will treat UUI first . All questions and concerns were addressed. Dian Desai MD documented in this encounterOhio State East Hospital04-29-2025 NoteHNO ID: [id number] Author: DIAN WIGGINS MD Service: ? Author Type: Physician Type: Progress Notes Filed: 12/04/2024 14:03 Note Text: [facility] FOR FEMALE PELVIC MEDICINE AND RECONSTRUCTIVE SURGERY HISTORY OF PRESENT ILLNESS: Vijaya Tinsley is a 29 year old female with neurogenic 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 07/27/22 visit, fell POD#1 on her butt and had less efficacy since then. Today, she voids q2.5-3hr, ISMAEL with program 5 @0.7 during trial period with very little leakage. She increased to 0.9mA on program 5 yesterday with little improvement. Xray ordered to r/o lead migration. Switched to program A (0+, 1-) at 0.3mA, felt at buttocks no leg. From my note on 07/27/22: Program 5 (3+, 0 and 1-) at 0.9mA --> decreased to 0.8 mA, felt in buttock midline Program 1 (3+, 0-) --> vagina 0.6mA, felt down right leg Program 2 (3+, 1-)--> buttock 0.5mA, no leg Program 3(0+, 2-) --> buttock 0.7mA, no leg Program 4 (0-, 3-)--> buttock 1.3mA, no leg Program 6 (3+, 2 and 1-)-->1 mA upper back Program 7(0+, 2 and 3-)--> 0.9mA buttock, no leg Program A (0+, 1-)--> 0.3mA, buttock, no leg Impedence good 09/10/22 visit, on program 7. voids q3.5hrs-5hrs, UI (2-3pads but sometime soaked something, but it is better than before), can hold it for 45mins before it was not at all. Reports some pain during charging at site of IPG if it's at the wrong location that lasts a few seconds. 11/16/22 visit, programming not working as well. Currently on program 7; 0.8mA. Not as good as during trial. Recent constipation, now taking senna prn with relief. Voids q3-4hrs, UUI (3pads/d, a little bit soaked). Will have rep reach out to assist with programming. Possible xray if no improvement with new program. Today, program 6 @0.7mA . Reports she has good day and bad days with symptoms but overall has 75-80% improvement. Continues with vesicare. Voids q2-4hrs. Feels like her bladder doesn't full empty at times. UUI worse in the morning, Will wake up wake some days. 3pads/d.Experiencing constipation, states it's better but not great. Reports trouble with device connecting to the bariatric program coordinator. Reports right leg pain with lifting for 1 month 11/25/23 visit per Mary MCKENZIE, program 6 no longer working. Remain on program A, d/c mirabegron, start gemtesa 75mg. 09/07/24 VV per Mary MCKENZIE, symptoms varied while on gemtesa 75 mg; some days better than others. Reports she is urinating >4 times a day, and 0 times at night. Reports she is incontinent 4 times during the day. Change to program B. Continue gemtesa 75mg. Est. With Dr Valerio in [place] after moving there. Today, states her stimulator has not been working well since knee surgery on 11/23. Currently has a +Ucx (11/29 E coli- tx bactrim), feels UTI symptoms (dysuria, headache, nauseous) have improved since completing bactrim. States every time she turns off interstim for surgery, she has a hard time getting it to turn on and function properly. Feel the therapy has been intermittent in nature. Reports 2-3UTIs/year. Would like to know if she can have something to prevent UTIs. + ISMALE =UUI 2-3 episodes/d. 2-3 pads/d. +constipation, reports her Urologist in [place] said she has neurogenic bowel based on symptoms of not fully emptying bowels. Gemtessa works but still has UI. *Program B (0-, 1-, 3-, 4+), 0.4mA, felt right buttock - current program and reports doing well on this program Impedance: good Battery 100% HISTORIES: PAST MEDICAL HISTORY PAST MEDICAL HISTORY Diagnosis Date Class 3 severe obesity in adult (HCC) 06/11/2022 PAST SURGICAL HISTORY PAST SURGICAL HISTORY Procedure Laterality Date ANKLE SURGERY HX Left Left ankle infection KNEE SURGERY HX ORAL SURGERY PROCEDURE root canal FAMILY HISTORY FAMILY HISTORY Problem Relation Age of Onset Anesthesia Problems No Family History SOCIAL HISTORY Social History Tobacco Use Smoking status: Never Smokeless tobacco: Never Substance Use Topics Alcohol use: Not Currently Drug use: Never MEDICATIONS: Current Outpatient Medications Medication Sig phenazopyridine (PYRIDIUM) 200 mg tablet Take 1 tablet by mouth three times a day as needed for up to 5 days. sulfamethoxazole-trimethoprim (BACTRIM DS) 800-160 mg per tablet Take 1 tablet by mouth two times a day for 5 days. vibegron (GEMTESA) 75 mg tablet Take 1 tablet by mouth once daily. tirzepatide, weight loss (ZEPBOUND) 2.5 mg/0.5 mL pen injector Inject 2.5 mg subcutaneously one time a week. gabapentin (NEURONTIN) 300 mg capsule Take 1 capsule by mouth three times a day for 180 days. ZEPBOUND 2.5 mg/0.5 mL pen injector INJECT 2.5 MG (0.5 ML) SUBCUTANEOUSLY WEEKLY FOR 4 WEEKS No current facility-administered medications for this visit. CURRENT ALLERGIES: Allergies As of Date (more content not included)...[facility] 11-28-2024 Telephone encounter Note* Telephone Encounter - MAGALY Kenney - 11/28/2024 8:05 AM EDT Called and left message.. sent message in my chart. [facility] Healthcare Work Phone: [phone] 159-961904-23-2025 Miscellaneous Notes* Telephone Encounter - MAGALY Kenney - 11/28/2024 8:05 AM EDT Called and left message.. sent message in my chart. * Telephone Encounter - Poonam Haro - 11/27/2024 3:32 PM EDT Patient called asking if we have received her urine results that she had done at [facility] last week. I do not see them. Please advise [phone]. documented in this encounterHawthorn Children's Psychiatric [id number] Telephone encounter Note* Telephone Encounter - Poonam Haro - 11/27/2024 3:32 PM EDT Patient called asking if we have received her urine results that she had done at [facility] last week. I do not see them. Please advise [phone]. [facility] [id number] Note [id number]#1.00[facility]04-21-2025 [id number]#1.00[facility] 11-26-2024 [id number]#1.00[facility]04-18-2025 [facility] SURGERY Clinical Discharge Summary PERSON INFORMATION Name VIJAYA TINSLEY Age 29 Years 1995 Sex FEMALE Language Panamanian PCP DIONNE CHAMBERS Marital Status Phone Med Service Ambulatory Surgery Acct# Arrival 11/23/2024 12:30:34 Visit Reason SURGERY - RIGHT KNEE ARTHROSCOPY Acuity LOS 017 07:13 Address: [address] [place] [address] Comment: PROVIDER INFORMATION VITALS INFORMATION Vital Sign Triage Latest Temp Oral Temp Temporal Temp Intravascular Temp Axillary Temp Rectal 02 Sat 100 % 97 % Respiratory Rate Peripheral Pulse Rate Apical Heart Rate Blood Pressure / 102 mmHg / 65 mmHg Comment: MEDICAL INFORMATION Allergy Info: No Known Medication Allergies Prescriptions Given: acetaminophen-hydrocodone ([place] 5 mg-325 mg oral tablet) 1 tab(s) Oral (given by mouth) every 6 hours. as needed as needed for pain. Refills: 0. triamcinolone topical (triamcinolone 0.1% topical cream) 1 jessie Topical (on the skin) 2 times per day as needed rash. vibegron (Gemtesa 75 mg oral tablet) 1 tab(s) Oral (given by mouth) every day. Medication List: New Medications Printed Prescriptions acetaminophen-hydrocodone ([place] 5 mg-325 mg oral tablet) 1 tab(s) Oral (given by mouth) every 6 hours. as needed as needed for pain. Refills: 0. Medications to Continue That Have Not Changed Other Medications triamcinolone topical (triamcinolone 0.1% topical cream) 1 jessie Topical (on the skin) 2 times per day as needed rash. vibegron (Gemtesa 75 mg oral tablet) 1 tab(s) Oral (given by mouth) every day. New Medications Printed Prescriptions acetaminophen-hydrocodone ([place] 5 mg-325 mg oral tablet) 1 tab(s) Oral (given by mouth) every 6 hours. as needed as needed for pain. Refills: 0. Medications to Continue That Have Not Changed Other Medications triamcinolone topical (triamcinolone 0.1% topical cream) 1 jessie Topical (on the skin) 2 times per day as needed rash. vibegron (Gemtesa 75 mg oral tablet) 1 tab(s) Oral (given by mouth) every day. New Medications Printed Prescriptions acetaminophen-hydrocodone ([place] 5 mg-325 mg oral tablet) 1 tab(s) Oral (given by mouth) every 6 hours. as needed as needed for pain. Refills: 0. Medications to Continue That Have Not Changed Other Medications triamcinolone topical (triamcinolone 0.1% topical cream) 1 jessie Topical (on the skin) 2 times per day as needed rash. vibegron (Gemtesa 75 mg oral tablet) 1 tab(s) Oral (given by mouth) every day. Comment: Lab and Radiology Results Laboratory or Other Results This Visit (last charted value for your 11/23/2024 visit) Chemistry 11/23/2024 12:45 PM U Preg: Negative DIET & ACTIVITY Patient Activity Level: Patient Diet: Patient Activity Restrictions: DISCHARGE INFORMATION Discharge Disposition: Discharge Location: DEPART REASON INCOMPLETE INFORMATION PATIENT EDUCATION INFORMATION Instructions: Stepanic Arthroscopy Discharge Instructions (MHMPATRICK) Follow up: With: Address: When: Markie Segura [address] [place] [address], [address] [place] [id number] Business (1) In 15 days 12/07/2024 DIAGNOSIS Chondromalacia of patella, right Comment: PHYS DOC [place] [id number] Telephone encounter Note* Telephone Encounter - Eda Roman MA - 11/20/2024 3:25 PM EDT Called and informed patient. [facility] [id number] Miscellaneous Notes* Telephone Encounter - Eda Roman MA - 11/20/2024 3:25 PM EDT Called and informed patient. * Telephone Encounter - Eda Roman MA - 11/20/2024 3:10 PM EDT Gideon said by car and plane via at least 6-8 weeks and then he can advise when to travel after. The risk of blood clots are there up to 3 months post procedure. * Telephone Encounter - Hallie Fernando - 11/20/2024 10:53 AM EDT Patent called to ask when the soonest she can travel, she is planning to travel in early January, can she fly? Or does she have to drive? Please advise [phone] documented in this encounterHawthorn Children's Psychiatric HospitalWrkotlwaxh26-10-9370 Telephone encounter Note* Telephone Encounter - Eda Roman MA - 11/20/2024 3:10 PM EDT Gideon said by car and plane via at least 6-8 weeks and then he can advise when to travel after. The risk of blood clots are there up to 3 months post procedure. [facility] [id number] Telephone encounter Note* Telephone Encounter - Hallie Fernando - 11/20/2024 10:53 AM EDT Patent called to ask when the soonest she can travel, she is planning to travel in early January, can she fly? Or does she have to drive? Please advise [phone] [facility] [id number] Telephone encounter Note* Telephone Encounter - Eda Roman MA - 11/19/2024 9:38 AM EDT Patient came in for PAT Tuesday and was being treated for a UTI. Markie wanted there to be a UA on to ensure the infection has cleared up prior to surgery on Tuesday. I did fax over an order [employer] in [place] for this to be completed. [facility] [id number] Miscellaneous Notes* Telephone Encounter - Eda Roman MA - 11/19/2024 9:38 AM EDT Patient came in for PAT Tuesday and was being treated for a UTI. Markie wanted there to be a UA on to ensure the infection has cleared up prior to surgery on Tuesday. I did fax over an order [employer] in [place] for this to be completed. * Telephone Encounter - Markie Segura NP - 11/16/2024 2:44 PM EDT Post op pain rx printed for patient at surgical facility due to technical issues. PDMP reviewed documented in this encounterHawthorn Children's Psychiatric [id number] Telephone encounter Note* Telephone Encounter - Markie Segura NP - 11/16/2024 2:44 PM EDT Post op pain rx printed for patient at surgical facility due to technical issues. PDMP reviewed [facility] [id number] History of Present illness Narrative* Markie Segura NP - 11/16/2024 9:00 AM EDT Images from the original note were not included. GENERAL HISTORY AND PHYSICAL: NAME: Vijaya Tinsley : 1995 HISTORY OF PRESENT ILLNESS: Vijaya Tinsley is an 29 y.o. @ female. Here for surgery instructions H&P RT KNEE SCOPE 11/23/24@ [facility] PAST MEDICAL HISTORY: Past Medical History: Diagnosis Date Abnormal results of thyroid function studies Asthma Cerebral palsy Overactive bladder Pott's disease PAST SURGICAL HISTORY: Past Surgical History: Procedure Laterality Date ANKLE SURGERY Left 2018 [facility] BACK SURGERY Back Implant KNEE ARTHROSCOPY W/ LATERAL RELEASE Right 03/30/2022 DR TRAVIS KNEE ARTHROSCOPY W/ MENISCECTOMY Right 11/18/2023 [facility], [facility] ; DR TRAVIS MR ANGIOGRAM HEAD WO IV CONTRAST 01/05/2024 MR ANGIOGRAM HEAD WO IV CONTRAST 01/05/2024 SOCIAL HISTORY: Social History Occupational History Not on file Tobacco Use Smoking status: Never Smokeless tobacco: Never Vaping Use Vaping status: Never Used Substance and Sexual Activity Alcohol use: Never Drug use: Never Sexual activity: Not on file ALLERGIES: Allergies Allergen Reactions Amoxicillin Diarrhea Cetirizine Hives, Itching and Rash Vancomycin Hives, Rash and Other Burning Sensation MEDICATIONS: Current Outpatient Medications Medication Instructions Gemtesa 75 MG tablet 1 tablet, Daily Levonorgestrel 52 mg nitrofurantoin, macrocrystal-monohydrate, (Macrobid) 100 MG capsule TAKE 1 CAPSULE BY MOUTH 2 TIMESDAILY FOR URINARY TRACT INFECTION. Zepbound 7.5 mg, Weekly REVIEW OF SYSTEMS: Review of Systems Constitutional: Negative for fatigue, fever and unexpected weight change. Eyes: Negative for redness and visual disturbance. Gastrointestinal: Denies Indigestion, being currently treated for UTI Genitourinary: Currently being treated for UTI Musculoskeletal: See note: Skin: Negative for color change and rash. Neurological: Negative for light-headedness and numbness. Vitals: Body mass index is 46.64 kg/m . PHYSICAL EXAM: Physical Exam Constitutional: General: She is not in acute distress. Appearance: Normal appearance. HENT: Head: Normocephalic and atraumatic. Right Ear: External ear normal. Left Ear: External ear normal. Nose: Nose normal. No rhinorrhea. Mouth/Throat: Mouth: Mucous membranes are moist. Pharynx: No posterior oropharyngeal erythema. Eyes: Extraocular Movements: Extraocular movements intact. Conjunctiva/sclera: Conjunctivae normal. Cardiovascular: Rate and Rhythm: Normal rate and regular rhythm. Pulses: Normal pulses. Pulmonary: Effort: Pulmonary effort is normal. Abdominal: Palpations: Abdomen is soft. Tenderness: There is no abdominal tenderness. Musculoskeletal: Cervical back: Normal range of motion and neck supple. Comments: Hx of cerebral palsy. Presents in wheelchair Lymphadenopathy: Cervical: No cervical adenopathy. Skin: General: Skin is warm and dry. Findings: No erythema or rash. Neurological: General: No focal deficit present. Mental Status: She is alert and oriented to person, place, and time. Psychiatric: Mood and Affect: Mood normal. Behavior: Behavior normal. No orders of the defined types were placed in this encounter. ASSESSMENT: ICD-10-CM 1. Pre-op examination Z01.818 PLAN: This patient presents for preadmission testing for upcoming surgery. Complete history with medical, surgery, and current allergy and medication list obtained. Consent for surgery signed and witnessed after verbal consent to perform surgery received. All questions answered and proposed surgeryscheduled. We will order repeat UA after patient finishes antibiotic for UTI per patient request asshe is being treated for UTI by her PCP. RT KNEE SCOPE 11/23/24 @ [facility] 11/16/24 @ [facility] OFFICE Markie Segura BUSINESS UNIT CONTROLLER-HR RECRUITER No follow-ups on file. documented in this encounterHawthorn Children's Psych[facility] [id number] Telephone encounter Note* Telephone Encounter - Susi Wei - 09/20/2024 9:44 AM EST Images from the original note were not included. September 20, 2024 9:44 AM Appeal letter tirzepatide, weight loss (ZEPBOUND) 2.5 mg/0.5 mL pen injector PA Case [id number] Faxed to [employer] [phone] Pending determination Susi Prior Relay Engineer Endocrinology and Metabolism [place] [facility]02-13-2025 Miscellaneous Notes* Telephone Encounter - Susi Wei - 09/20/2024 9:44 AM EST Images from the original note were not included. September 20, 2024 9:44 AM Appeal letter tirzepatide, weight loss (ZEPBOUND) 2.5 mg/0.5 mL pen injector PA Case [id number] Faxed to [employer] [phone] Pending determination Susi Prior Relay Engineer Endocrinology and Metabolism [place] documented in this encounterOhio [facility]25 Telephone encounter Note * Telephone Encounter - Tim Garcia - 09/13/2024 11:10 AM EST Images from the original note were not included. Dear Provider, Your patient's medication tirzepatide, weight loss (ZEPBOUND) 2.5 mg/0.5 mL pen injector was denied. Denial letters are sent directly to the patient and at times to the healthcare providers. If we receive a denial letter, it will be indexed for your review. If you want to appeal the decision. Please submit your request via staff message to the Endo Auth Appeals Pool ([id number]). You can find templates listed below to support your appeal in [facility] (Epic drop down, select patient care, selectsend letter). If it is an urgent request, you can email the MAGALY Robertson auth Team at . Please make sure the documents below are completed in order to process your request. Thank You, Rocky Prior Auth Appeals Team Rocky MCKENZIE Appeal letter Rocky MCKENZIE Letter of Medical Necessity Rocky MCKENZIE [place] [facility]02-06-2025 Miscellaneous Notes* Telephone Encounter - Italo Tim Sher - 09/13/2024 11:10 AM EST Images from the original note were not included. Dear Provider, Your patient's medication tirzepatide, weight loss (ZEPBOUND) 2.5 mg/0.5 mL pen injector was denied. Denial letters are sent directly to the patient and at times to the healthcare providers. If we receive a denial letter, it will be indexed for your review. If you want to appeal the decision. Please submit your request via staff message to the Endo [facility] Auth Appeals Pool ([id number]). You can find templates listed below to support your appeal in [employer] (Epic drop down, select patient care, selectsend letter). If it is an urgent request, you can email the MAGALY Robertson auth Team at . Please make sure the documents below are completed in order to process your request. Thank You, Rocky Prior Auth Appeals Team Rocky PA Appeal letter Rocky MCKENZIE Letter of Medical Necessity Endo MAGALY [place] documented in this encounterOhio State East Hospital01-31-2025 History of Present illness Narrative* Olga Pryor PA-C - 09/07/2024 9:40 AM EST This is a virtual visit. It required patient-provider interaction for the medical decision making as documented below. I have communicated my name and active licensure. The patient's identity and physical location wereverified at the time of this visit. Either the patient or their legal underwriting service representative has been informed of the risks and benefits of -- and alternatives to -- treatment through a remote evaluation andconsents to proceed with the evaluation remotely. Vijaya Tinsley is a 28 year old female seen for OAB FU. Interstim device in place; placed on06/28/[address] Aggarwal for urge incontinence. Last seen on 11/25/23; started on gemtesa 75 mg and added programs A-D. Patient reports her urination is not great . Patient reports she got the norovirus and symptoms got worse after this. Reports she is experiencing incontinence can't hold it at all . Patient reports symptoms varied while on gemtesa 75 mg; some days better than others. Reports she is urinating >4 times a day, and 0 times at night. Reports she is incontinent 4 times during the day. HISTORY REVIEWED (electronic chart updated): PAST MEDICAL HISTORY Diagnosis Date Class 3 severe obesity in adult (HCC) 06/11/2022 PAST SURGICAL HISTORY Procedure Laterality Date ANKLE SURGERY HX Left Left ankle infection KNEE SURGERY HX ORAL SURGERY PROCEDURE root canal FAMILY HISTORY Problem Relation Age of Onset Anesthesia Problems No Family History Social History Tobacco Use Smoking status: Never Smokeless tobacco: Never Substance Use Topics Alcohol use: Not Currently Drug use: Never Current Outpatient Medications Medication Sig vibegron (GEMTESA) 75 mg tablet Take 1 tablet by mouth once daily. tirzepatide, weight loss (ZEPBOUND) 2.5 mg/0.5 mL pen injector Inject 2.5 mg subcutaneously one time a week. gabapentin (NEURONTIN) 300 mg capsule Take 1 capsule by mouth three times a day for 180 days. ZEPBOUND 2.5 mg/0.5 mL pen injector INJECT 2.5 MG (0.5 ML) SUBCUTANEOUSLY WEEKLY FOR 4 WEEKS No current facility-administered medications for this visit. ALLERGIES Allergen Reactions Grass Pollen-Bermud* Unknown Amoxicillin Diarrhea Vancomycin Hives Burning sensation Cetirizine Hives, Other: See Comments, Rash hives PHYSICAL EXAMINATION: VIDEO EXAM: (if completed, performed via video enabled technology) GENERAL: alert and appropriate, in no distress, well-hydrated, well nourished, and happy, smiling, interactive SKIN: no rash noted RESPIRATORY: breathing non-labored ASSESSMENT/PLAN: 1. Urge incontinence - ICD9: 788.31, ICD10: N39.41 - GEMTESA 75 MG TABLET -advised patient to change programs from A to B to see if this helps alleviate some Urgency and Uuisymptoms -recommend continuation on gemtesa 75 mg -has established with new urologist in [place], Dr. Valerio, pt requested her urology records be faxed to new provider's office. This will be completed today -follow up with our team JANENE Pryor PA-C I spent a total of 20 minutes on the date of the service which included preparing to see the patient, [id number] patient care, completing clinical documentation, and counseling and educating the patient/family/caregiver. documented in this encounterOhio State East Hospital01-31-2025 NoteHNO ID: [id number] Author: OLGA PRYOR PA-C Service: ? Author Type: Physician Manager News Type: Progress Notes Filed: 09/07/2024 09:56 Note Text: This is a virtual visit. It required patient-provider interaction for the medical decision making as documented below. I have communicated my name and active licensure. The patient's identity and physical location were verified at the time of this visit. Either the patient or their legal underwriting service representative has been informed of the risks and benefits of -- and alternatives to -- treatment through a remote evaluation and consents to proceed with the evaluation remotely. Vijaya Tinsley is a 28 year old female seen for OAB FU. Interstim device in place; placed on 06/28/[address] Aggarwal for urge incontinence. Last seen on 11/25/23; started on gemtesa 75 mg and added programs A-D. Patient reports her urination is not great . Patient reports she got the norovirus and symptoms got worse after this. Reports she is experiencing incontinence can't hold it at all . Patient reports symptoms varied while on gemtesa 75 mg; some days better than others. Reports she is urinating >4 times a day, and 0 times at night. Reports she is incontinent 4 times during the day. HISTORY REVIEWED (electronic chart updated): PAST MEDICAL HISTORY Diagnosis Date Class 3 severe obesity in adult (HCC) 06/11/2022 PAST SURGICAL HISTORY Procedure Laterality Date ANKLE SURGERY HX Left Left ankle infection KNEE SURGERY HX ORAL SURGERY PROCEDURE root canal FAMILY HISTORY Problem Relation Age of Onset Anesthesia Problems No Family History Social History Tobacco Use Smoking status: Never Smokeless tobacco: Never Substance Use Topics Alcohol use: Not Currently Drug use: Never Current Outpatient Medications Medication Sig vibegron (GEMTESA) 75 mg tablet Take 1 tablet by mouth once daily. tirzepatide, weight loss (ZEPBOUND) 2.5 mg/0.5 mL pen injector Inject 2.5 mg subcutaneously one time a week. gabapentin (NEURONTIN) 300 mg capsule Take 1 capsule by mouth three times a day for 180 days. ZEPBOUND 2.5 mg/0.5 mL pen injector INJECT 2.5 MG (0.5 ML) SUBCUTANEOUSLY WEEKLY FOR 4 WEEKS No current facility-administered medications for this visit. ALLERGIES Allergen Reactions Grass Pollen-Bermud* Unknown Amoxicillin Diarrhea Vancomycin Hives Burning sensation Cetirizine Hives, Other: See Comments, Rash hives PHYSICAL EXAMINATION: VIDEO EXAM: (if completed, performed via video enabled technology) GENERAL: alert and appropriate, in no distress, well-hydrated, well nourished, and happy, smiling, interactive SKIN: no rash noted RESPIRATORY: breathing non-labored ASSESSMENT/PLAN: 1. Urge incontinence - ICD9: 788.31, ICD10: N39.41 - GEMTESA 75 MG TABLET -advised patient to change programs from A to B to see if this helps alleviate some Urgency and Uui symptoms -recommend continuation on gemtesa 75 mg -has established with new urologist in [place], Dr. Valerio, pt requested her urology records be faxed to new provider's office. This will be completed today -follow up with our team JANENE Pryor PA-C I spent a total of 20 minutes on the date of the service which included preparing to see the patient, [id number] patient care, completing clinical documentation, and counseling and educating the patient/family/caregiver. [facility]01-30-2025 Telephone encounter Note* Telephone Encounter - Chiara Blanco - 09/06/2024 4:39 PM EST Initiated PA for Zepbound 2.5mg through [employer] Questions Completed Waiting for determination Chiara Prior Relay Engineer III Endocrinology & Metabolism [place] [facility]01-30-2025 Miscellaneous Notes* Telephone Encounter - Chiara Blanco - 09/06/2024 4:39 PM EST Initiated PA for Zepbound 2.5mg through [employer] Questions Completed Waiting for determination Chiara Prior Relay Engineer III Endocrinology & Metabolism [place] documented in this encounterOhio State East Hospital01-23-2025 NoteHNO ID: [id number] Author: SYLVIA BRADY MD Service: ? Author Type: Physician Type: Progress Notes Filed: 08/30/2024 14:33 Note Text: Endocrinology Virtual Visit This is a virtual visit using [employer] Zoom Video Visit. It required patient-provider interaction for the medical decision making as documented below. I have communicated my name and active licensure. The patient's identity and physical location were verified at the time of this visit. Either the patient or their legal underwriting service representative has been informed of the risks and benefits of -- and alternatives to -- treatment through a remote evaluation and consents to proceed with the evaluation remotely. Vijaya is a 28 year old female with a hx of hypothyroidism is from [place] , her t4 and T3 were normal, she came back to [place], she had positive ab for hashimots, last summer she was hospital [place] frequently , tpo 259 , on zepbound , mom has hashimotos antibodies, mom had graves dis, on zepb fatigue all the time, constipation, no hair loss, on Brenda IUD.very heavy cycles, fatty liver , also has CP. She has gained weight feels very tired and also feels not full all the time was started onZepbound recently curtis stretch valerio on the exam was on estrogen patches before brenda IUD a swell. No VF defects , no galactorrhea She is here for follow up, she feels very tired, sleep study was normal seeing PCP for possible anxiety depression as well. No SI /HI has some sleep insomnia issues as well , no compression symptoms HISTORY REVIEWED (electronic chart updated): PAST MEDICAL HISTORY Diagnosis Date Class 3 severe obesity in adult (HCC) 06/11/2022 PAST SURGICAL HISTORY Procedure Laterality Date ANKLE SURGERY HX Left Left ankle infection KNEE SURGERY HX ORAL SURGERY PROCEDURE root canal FAMILY HISTORY Problem Relation Age of Onset Anesthesia Problems No Family History Social History Tobacco Use Smoking status: Never Smokeless tobacco: Never Substance Use Topics Alcohol use: Not Currently Drug use: Never Current Outpatient Medications Medication Sig gabapentin (NEURONTIN) 300 mg capsule Take 1 capsule by mouth three times a day for 180 days. ZEPBOUND 2.5 mg/0.5 mL pen injector INJECT 2.5 MG (0.5 ML) SUBCUTANEOUSLY WEEKLY FOR 4 WEEKS vibegron (GEMTESA) 75 mg tablet Take 1 tablet by mouth once daily. No current facility-administered medications for this visit. ALLERGIES Allergen Reactions Grass Pollen-Bermud* Unknown Amoxicillin Diarrhea Vancomycin Hives Burning sensation Cetirizine Hives, Other: See Comments, Rash hives REVIEW OF SYSTEM: Review of Systems GENERAL: No weight loss, No fevers, and no chills. No fatigue , No orthostatic symptoms. No weight gain. No flushing HEENT: No changes in hearing or vision, no nose bleeds or other nasal problems NECK: Negative for lumps, goiter, pain and significant neck swelling RESPIRATORY: Negative for cough, wheezing or Shortness of breath or dyspnea on exertion CARDIOVASCULAR: Negative for chest pain, leg swelling or palpitations. GI: Negative for abdominal discomfort, blood in stools or black stools or change in bowel habits, no diarrhea, no constipation : No history of dysuria, frequency or incontinence MUSCULOSKELETAL: Negative for joint pain or swelling, back pain or muscle pain. SKIN: Negative for lesions, rash, and itching. PSYCH: Negative for sleep disturbance, mood disorder and recent psychosocial stressors. HEMATOLOGY/LYMPHOLOGY Negative for prolonged bleeding, bruising easily or swollen nodes. ENDOCRINE: Negative for cold or heat intolerance, polyuria, polydipsia and goiter. NEURO: No history of headaches, syncope, paralysis, seizures or tremors All other reviewed and negative other than HPI. PHYSICAL EXAMINATION: VIDEO EXAM: (if completed, performed via video enabled technology) Physical Exam No exam performed ASSESSMENT AND PLAN: Vijaya is a 28 year old female with a hx of CP and abnormal positive damián's, weight gain and fatigue is here for initial visit was referred by Dr Chambers Chronic fatigue and weight gain and positive TPO : discussed subclinical hypothyroidism and WENDY guidelines regarding diagnosis and treatment we will check TFT tpo and am cortisol and insulin and glucose 2- Weight gain/bmi 46:seeing weight loss team and is mounjaro/zepbound and tolerating well. Has been off due to insurance issues I ordered again Sylvia Colbert MD Answers submitted by the patient for this visit: Core Review of Systems (Submitted on 08/27/2024) Fever : No Nasal Congestion: No Hearing Loss: No A cough: No Irregular heartbeat: No Black tarry stools: No Difficulty Urinating?: Yes Awaken at Night More Than Once to Urinate?: No Joint pain or stiffness: Yes Leg or Foot Discomfort at Night?: No A rash: No Memory Loss: Yes Seizures: [facility]01-23-2025 History of Present illness Narrative* Sylvia Brady MD - 08/30/2024 1:53 PM EST Endocrinology Virtual Visit This is a virtual visit using [employer] Zoom Video Visit. It required patient- provider interaction for the medical decision making as documented below. I have communicated my name and active licensure. The patient's identity and physical location wereverified at the time of this visit. Either the patient or their legal underwriting service representative has been informed of the risks and benefits of -- and alternatives to -- treatment through a remote evaluation andconsents to proceed with the evaluation remotely. 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 She has gained weight feels very tired and also feels not full all the time was started onZepbound recently curtis stretch valerio on the exam was on estrogen patches before brenda IUD a swell. No VF defects , no galactorrhea She is here for follow up, she feels very tired, sleep study was normal seeing PCP for possible anxiety depression as well. No SI /HI has some sleep insomnia issues as well , no compression symptoms HISTORY REVIEWED (electronic chart updated): PAST MEDICAL HISTORY Diagnosis Date Class 3 severe obesity in adult (HCC) 06/11/2022 PAST SURGICAL HISTORY Procedure Laterality Date ANKLE SURGERY HX Left Left ankle infection KNEE SURGERY HX ORAL SURGERY PROCEDURE root canal FAMILY HISTORY Problem Relation Age of Onset Anesthesia Problems No Family History Social History Tobacco Use Smoking status: Never Smokeless tobacco: Never Substance Use Topics Alcohol use: Not Currently Drug use: Never Current Outpatient Medications Medication Sig gabapentin (NEURONTIN) 300 mg capsule Take 1 capsule by mouth three times a day for 180 days. ZEPBOUND 2.5 mg/0.5 mL pen injector INJECT 2.5 MG (0.5 ML) SUBCUTANEOUSLY WEEKLY FOR 4 WEEKS vibegron (GEMTESA) 75 mg tablet Take 1 tablet by mouth once daily. No current facility-administered medications for this visit. ALLERGIES Allergen Reactions Grass Pollen-Bermud* Unknown Amoxicillin Diarrhea Vancomycin Hives Burning sensation Cetirizine Hives, Other: See Comments, Rash hives REVIEW OF SYSTEM: Review of Systems GENERAL: No weight loss, No fevers, and no chills. No fatigue , No orthostatic symptoms. No weight gain. No flushing HEENT: No changes in hearing or vision, no nose bleeds or other nasal problems NECK: Negative for lumps, goiter, pain and significant neck swelling RESPIRATORY: Negative for cough, wheezing or Shortness of breath or dyspnea on exertion CARDIOVASCULAR: Negative for chest pain, leg swelling or palpitations. GI: Negative for abdominal discomfort, blood in stools or black stools or change in bowel habits, no diarrhea, no constipation : No history of dysuria, frequency or incontinence MUSCULOSKELETAL: Negative for joint pain or swelling, back pain or muscle pain. SKIN: Negative for lesions, rash, and itching. PSYCH: Negative for sleep disturbance, mood disorder and recent psychosocial stressors. HEMATOLOGY/LYMPHOLOGY Negative for prolonged bleeding, bruising easily or swollen nodes. ENDOCRINE: Negative for cold or heat intolerance, polyuria, polydipsia and goiter. NEURO: No history of headaches, syncope, paralysis, seizures or tremors All other reviewed and negative other than HPI. PHYSICAL EXAMINATION: VIDEO EXAM: (if completed, performed via video enabled technology) Physical Exam No exam performed ASSESSMENT & PLAN: Vijaya is a 28 year old female with a hx of CP and abnormal positive damián's, weight gain and fatigue is here for initial visit was referred by Dr Chambers Chronic fatigue and weight gain and positive TPO : discussed subclinical hypothyroidism and WENDY guidelines regarding diagnosis and treatment we will check TFT tpo and am cortisol and insulin and glucose 2- Weight gain/bmi 46:seeing weight loss team and is mounjaro/zepbound and tolerating well. Has been off due to insurance issues I ordered again Sylvia Colbert MD Answers submitted by the patient for this visit: Core Review of Systems (Submitted on 08/27/2024) Fever : No Nasal Congestion: No Hearing Loss: No A cough: No Irregular heartbeat: No Black tarry stools: No Difficulty Urinating?: Yes Awaken at Night More Than Once to Urinate?: No Joint pain or stiffness: Yes Leg or Foot Discomfort at Night?: No A rash: No Memory Loss: Yes Seizures: No documented in this encounterOhio [facility]01-21-2025 History of Present illness Narrative* Jr. Hermilo Travis, DO - 08/28/2024 10:45 AM EST Images from the original note were not included. HISTORY OF PRESENT ILLNESS: EST PT Vijaya Tinsley is an 28 y.o. @ female. EST PT RECHECK (R) KNEE- S/P CELEBREX; DENIES RELIEF - S/P PT IN [place] (FINISHED ~2MO AGO); DENIES RELIEF S/P (R) KNEE SCOPE 11/18/[address] TRAVIS XRAYS, 08/18/23 IN [facility] ; PRE-OP MRI (R) KNEE 07/06/24 @ [place]- PT HAS IMAGES/REPORT NO MDP / PREDNISONE ; POST-OP NO CORTISONE INJ ; POST-OP S/P PHYSICAL THERAPY @ [facility] [place] ; POST-OP NO PAIN MGMT PRESENT TODAY IN WHEELCHAIR- C/O CRUNCHING - PAIN MEDIAL/POSTERIOR/ABOVE PATELLA- +SWELLING- +INSTABILITY- PT STATES SHE USED TO BE ABLE TO AMBULATE WITH CRUTCHES- STATES SHE HAS NOT BEEN ABLE TO USE CRUTCHES DUE TO KNEE PAIN- SOME ACHINESS - NO PAIN MEDS - PT TRIES TO STRETCH OUT KNEE ALLERGIES: Allergies Allergen Reactions Amoxicillin Diarrhea Cetirizine Hives, Itching and Rash Vancomycin Hives, Rash and Other Burning Sensation HOME MEDICATIONS: Current Outpatient Medications Medication Instructions celecoxib (CELEBREX) 200 mg, Oral, Daily Gemtesa 75 MG tablet 1 tablet, Daily Levonorgestrel 52 mg Zepbound 7.5 mg, Weekly PHYSICAL EXAM: Knee Musculoskeletal Exam Gait Gait is non-ambulatory. Assistive device: wheelchair Gait additional comments: Patient basically wheelchair bound. Inspection Leg length disparity: no discrepancy Right Erythema: none Effusion: mild Edema: none Ecchymosis: none Deformity: none Alignment: normal Previous incision: arthroscopic portals Incision: well-healed Palpation Right Increased warmth: none Masses: none Tenderness: present Lateral joint line: moderate Medial joint line: moderate Range of Motion Right Right knee range of motion is normal. Active extension: -5 Passive extension: 0 Active flexion: 110 Passive flexion: 120 Range of motion additional comments: + PAIN ON TERMINAL FLEXION AND EXTENSION Strength Right Extension: 2/5. Extension is not affected by pain. Flexion: 2/5. Flexion is not affected by pain. Instability Right Instability signs: none - stable Varus stress grade: normal Valgus stress grade: normal Right knee pivot shift test: unable to test. Right knee anterior drawer test: positive. Lateral Aftab test: negative West: negative Neurovascular Right Right knee neurovascular exam is normal. Pulses - PT: normal Posterior tibial: 2+ Capillary refill: warm and well-perfused Special Signs Right Right knee special signs are normal. Patellar apprehension: none Vitals: There is no height or weight on file to calculate BMI. Tobacco Use: Low Risk (08/03/2024) Patient History Smoking Tobacco Use: Never Smokeless Tobacco Use: Never Passive Exposure: Not on file Alcohol Use: Not At Risk (10/07/2019) Received from [facility], [facility] A[facility] Frequency of Alcohol Consumption: Never Average Number of Drinks: Not on file Frequency of Binge Drinking: Not on file IMAGING: Procedures No orders of the defined types were placed in this encounter. ASSESSMENT: No diagnosis found. PLAN: We have discussed her case, including her symptoms, MRI and x-rays. 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 We'll see her back on the day of surgery. Pau discussed both surgical and non surgical Treatment options with the patient at length and she is requesting surgical intervention in the form of a diagnostic and operative arthroscopy, fully understanding the risks and benefits of said treatment. We have discussed both surgical and nonsurgical treatment options with the patient at length and the risks and benefits associated with both. The patient is requesting surgical intervention because they have not responded to outpatient treatment options including but not limited to rest ice, and home exercise program. Pain and decreased range of motion are affecting the patient's ability to sleepand activities of daily living and we have recommended surgical intervention. Questions answered in laymen terms at the bedside. The diagnosis, home exercise plan and any ongoing restrictions/ recommendations reviewed. If unable to be reached in office, I recommend evaluation at nearest Emergency Room if any symptoms worsened or new symptoms develop for requiring urgent evaluation. documented in this encounterHawthorn Children's Psychiatric [id number] History of Present illness Narrative* Jr. Hermilo Travis DO - 08/03/2024 10:45 AM EST Images from the original note were not included. HISTORY OF PRESENT ILLNESS: EST PT Vijaya Tinsley is an 28 y.o. @ female. (EST PT ; LAST APPT W/ [facility]) RECHECK (R) KNEE S/P (R) KNEE SCOPE 11/18/23 (~8.5 MONTHS) XRAYS, 08/18/23 IN [facility] ; PRE-OP MRI (R) KNEE 07/06/24 @ [place]- PT HAS IMAGES/REPORT NO MDP / PREDNISONE ; POST-OP NO CORTISONE INJ ; POST-OP S/P PHYSICAL THERAPY @ [facility] ; POST-OP NO PAIN MGMT PRESENTS TODAY IN WHEELCHAIR ; PAIN DIFFUSE IN KNEE, NOTES SOMETIMES IT IS ALWAYS IN A DIFFERENT AREA. PAIN IS CONSTANT. NOTES IMPROVEMENT FROM THERAPY. + FEELS LIKE SHE IS LOSING STRENGTH IN THE KNEE. ; STATES SHE IS HAVING A HARD TIME TRUSTING HER KNEE - SWELLING THAT IS CONSTANT. NOT TAKING ANYTHING FOR PAIN. NOT USING ICE OR HEAT. + LOCKING/CATCHING. +GRINDING. ALLERGIES: Allergies Allergen Reactions Amoxicillin Diarrhea Cetirizine Hives, Itching and Rash Vancomycin Hives, Rash and Other Burning Sensation HOME MEDICATIONS: Current Outpatient Medications Medication Instructions celecoxib (CELEBREX) 200 mg, Oral, Daily Gemtesa 75 MG tablet 1 tablet, Daily Levonorgestrel 52 mg Zepbound 7.5 mg, Weekly PHYSICAL EXAM: Knee Musculoskeletal Exam Gait Gait is non-ambulatory. Assistive device: wheelchair Gait additional comments: Patient basically wheelchair bound. Inspection Leg length disparity: no discrepancy Right Erythema: none Effusion: mild Edema: none Ecchymosis: none Deformity: none Alignment: normal Previous incision: arthroscopic portals Incision: well-healed Palpation Right Increased warmth: none Masses: none Tenderness: present Lateral joint line: moderate Medial joint line: moderate Range of Motion Right Right knee range of motion is normal. Active extension: -5 Passive extension: 0 Active flexion: 110 Passive flexion: 120 Range of motion additional comments: + PAIN ON TERMINAL FLEXION AND EXTENSION Strength Right Extension: 3/5. Extension is not affected by pain. Flexion: 2/5. Flexion is not affected by pain. Instability Right Instability signs: none - stable Varus stress grade: normal Valgus stress grade: normal Right knee pivot shift test: unable to test. Right knee anterior drawer test: positive. Lateral Aftab test: negative West: negative Neurovascular Right Right knee neurovascular exam is normal. Pulses - PT: normal Posterior tibial: 2+ Capillary refill: warm and well-perfused Special Signs Right Right knee special signs are normal. Patellar apprehension: none Vitals: There is no height or weight on file to calculate BMI. Tobacco Use: Low Risk (08/03/2024) Patient History Smoking Tobacco Use: Never Smokeless Tobacco Use: Never Passive Exposure: Not on file Alcohol Use: Not At Risk (10/07/2019) Received from [facility], [facility] A[facility] Frequency of Alcohol Consumption: Never Average Number of Drinks: Not on file Frequency of Binge Drinking: Not on file IMAGING: Procedures No orders of the defined types were placed in this encounter. ASSESSMENT: ICD-10-CM 1. Internal derangement of right knee M23.91 2. Acute pain of right knee M25.561 celecoxib (CeleBREX) 200 MG capsule CANCELED: XR knee 1 or 2 views right PLAN: I reviewed her MRI from [place] with her at length today. We have discussed her case. Feel most ofher symptoms are coming from her chondromalacia patella. We have discussed restrictions and home exercise program. 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 Questions answered in laymen terms at the bedside. The diagnosis, home exercise plan and any ongoing restrictions/ recommendations reviewed. If unable to be reached in office, I recommend evaluation at nearest Emergency Room if any symptoms worsened or new symptoms develop for requiring urgent evaluation. documented in this encounterHawthorn Children's Psychiatric [id number] Telephone encounter Note* Telephone Encounter - Poonam Haro - 05/24/2024 3:18 PM EDT Left vm notifying patient. [facility] [id number] Miscellaneous Notes* Telephone Encounter - Poonamsam Haro - 05/24/2024 3:18 PM EDT Left vm notifying patient. * Telephone Encounter - MAGALY Kenney - 05/24/2024 2:50 PM EDT MRI can't be ordered without visit.. would recommend she see some one where she is at ( I think [place]) if indicated can get MRI there and bring copy of disc with her)- would scheduled with Dr. Travis if MRI is done/ time crunch. * Telephone Encounter - Poonam Haro - 05/24/2024 2:24 PM EDT Patient called to make an appointment in July for her knee. Patient is having pain. She is not able to come in until July. She did call back asking if she should get an MRI done prior to apptbecause when she comes for appt she will not be in town long. Please advise [phone]. documented in this encounterHawthorn Children's Psychiatric [id number] Telephone encounter Note* Telephone Encounter - MAGALY Kenney - 05/24/2024 2:50 PM EDT MRI can't be ordered without visit.. would recommend she see some one where she is at ( I think [place]) if indicated can get MRI there and bring copy of disc with her)- would scheduled with Dr. Travis if MRI is done/ time crunch. [facility] [place] Work Phone: [phone] Telephone encounter Note* Telephone Encounter - Poonam Haro - 05/24/2024 2:24 PM EDT Patient called to make an appointment in July for her knee. Patient is having pain. She is not able to come in until July. She did call back asking if she should get an MRI done prior to apptbecause when she comes for appt she will not be in town long. Please advise [phone]. [facility] [id number] Instructions* Patient Instructions* Deuce Farley APRN.HR RECRUITER - 03/19/2024 4:18 PM EDT NEURONTIN (Gabapentin) Neurontin (gabapentin) is an anti-convulsant medication which is also useful for the management of chronic pain and headache. Side effects include headache, fatigue, drowsiness, blurred vision, tremor, stomach upset, and anxiety. To minimize side effects, the very first dose should be taken at bedtime. Due to possible drowsiness or dizziness, use caution when operating machinery, driving, or engaging in activities, which require alertness. Contact our office at [phone] if you experience a rapid, pounding, or irregular heart beat, skin rash, runny nose, itching, flu-like symptoms, difficulty moving or clumsiness. Take Neurontin at least 2 (two) hours after taking any antacids as these interfere with the absorption of medication by the body. Limit your alcohol intake while taking this medication. Neurontin should not be stopped abruptly. If you experience any of the above symptoms or other problems, call our office at [phone] Stop at any dose that convincingly helps your headache Week 1: take 300mg at night Week 2: take 300mg in the am and 300mg at night Week 3: take 300mg in the am and 300mg midday and 300mg at night 01/05/2024 MRI/MRA Brain: IMPRESSION: 1. No acute intracranial findings. 2. No pathologic enhancement or morphologic distortion of either trigeminal nerve. No evidence of arterial impingement on the trigeminal nerves. 3. Patent intracranial vasculature. No aneurysm is identified. RESULT: BRAIN: Acute Change: There is no evidence of restricted diffusion to suggest an acute infarct. Hemorrhage: No evidence of prior parenchymal hemorrhage on the provided images. Mass Lesion/ Mass Effect: No evidence of an intracranial mass or extra-axial fluid collection. No significant mass effect. Chronic Change: The white matter is within normal limits of signal intensity for age. Parenchyma: No significant volume loss for age. The brain parenchyma is otherwise within normal limits of signal intensity and morphology. Ventricles: Normal caliber and morphology. Skull Base: Hypothalamic and pituitary region are grossly normal. Craniocervical junction is normal. No significant marrow replacement process. There is an enhancing vascular structure in close proximity to the cisternal segment of the left trigeminal nerve which is favored to be venous. No morphological distortion or pathologic enhancement of either trigeminal nerve. No pathologic enhancement of the other visualized cranial nerves. Vasculature: Major intracranial arterial structures, and dural venous sinuses show typical flow void, suggesting patency by spin echo criteria. Other: Mucosal thickening of the left maxillary sinus and left anterior ethmoid air cells. The other paranasal sinuses are clear. Mastoid air cells are well aerated. Orbits and globes are unremarkable. Atypical DWI signal within the bilateral occipital condyles and sphenoid wings which is nonspecific and likely physiologic given the symmetric appearance. The other marrow signal of the skull base and calvarium is within normal limits. Visualized extracranial soft tissues are within normal limits. INTRACRANIAL MRA: Bilateral intracranial ICAs, ACAs, and MCAs are patent. No aneurysm is identified. Bilateral V4 vertebral artery segments, basilar artery, and major branch vessels are patent. Bilateral greens cutter are patent with conventional bilateral origins. No arterial impingement is identified on either trigeminal nerve. documented in [facility] encounterOhio [facility] History of Present illness Narrative* Deuce Farley APRN.CHARLIE - 03/19/2024 4:00 PM EDT Head[facility] Virtual Visit Follow up This visit was conducted as a virtual visit, with patient's permission, via Zoom. It required patient-provider interaction for the medical decision making as documented below. Patient stated name and Patient location Karla OLIVER I have communicated my name and active licensure. The patient's identity and physical location wereverified at the time of this visit. Either the patient or their legal underwriting service representative has been informed of the risks and benefits of -- and alternatives to -- treatment through a remote evaluation andconsents to proceed with the evaluation remotely. March 19, 2024 Chief Complaint: Trigeminal Neuralgia Impression and Plan last visit: 12/20/[address] Kimi Lilly Jacqueline Tinsley is a 28 year old year old female with a significant past medical history of cerebral palsy, asthma, POTS, neurogenic bladder, obesity with BMI 46 who presents for further evaluation regarding facial pain . She was started on 09/2023, with left sided facial pain, as sharp, shooting, in the V2 V3 distribution, started from her lower chin and radiates to her left ear, she had 2 weeks., Went to the ED, responded to some steroid taper since then she can have it infrequently, with no typical triggers, no signs of abnormalities, no pain at the back of her head. 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 Her neurological examination is essentially normal at this visit. PLAN: Diagnosis: Left-sided facial pain,/tension type headache and anxiety. Brain MRI with and without contrast, brain MRI with contrast in the setting of facial pain , to rule out secondary or vascular causes for her facial pain Preventive: Cymbalta 60 mg daily Next steps: we can reevaluate her after 3 months, gabapentin can be considered for her facial pain, HPI: Facial pain is no different - comes and goes- no triggers Like a bad earache range 4-9/10 She went to a facial nerve doctor- diagnosed with trigeminal neuralgia FACIAL PAIN FEATURES Side: left , 09/2023 Distribution: v2, v3, the pain started shooting in her chin and radiates up to her ear, Any pain on side or back of head: no Character: sharp pain Duration: in 2 seconds to 2 minutes. - occurs 2-3 times a day to 10 times a day Pain-free between episodes: Triggers: no Sensory abnormalities: no Tried Tegretol/Trileptal: no Prior procedures/outcome: no History of MS, Lyme's disease, facial rash: no History of dental/oral surgery, facial/plastic surgery: no Headaches occurring twice a week - occurs more when she is riding in a car- ongoing for years Headache 1 Onset: - since she was a kids Location: occipital, bilateral and frontal Quality/Description: aching and throbbing Associated Symptoms: Photophobia: yes Phonophobia: no Nausea: yes Vomiting: no Worse with activity: no Number of migraine headache days/month: 10 Migraine headache severity: 10 Duration of headaches with treatment: Duration of attacks with treatment: lasts about 7 hours. Current abortive treatment: tylenol - not effective Relieving factors: someitmes has to lay down with them Positional changes: no Aura: none Preventative: none Abortive: tylenol not effective Muscle Relaxer Tizanidine (Zanaflex) Current Outpatient Medications Medication Sig DULoxetine (CYMBALTA) 30 mg capsule Take 1 capsule by mouth once daily for 15 days. DULoxetine (CYMBALTA) 60 mg capsule Take 1 capsule by mouth once daily. ZEPBOUND 2.5 mg/0.5 mL pen injector INJECT 2.5 MG (0.5 ML) SUBCUTANEOUSLY WEEKLY FOR 4 WEEKS dexAMETHasone (DECADRON) 1 mg tablet Take one tab at 11 pm and labs next day at 8-9 am vibegron (GEMTESA) 75 mg tablet Take 1 tablet by mouth once daily. No current facility-administered medications for this visit. PAST MEDICAL HISTORY 06/11/2022: Class 3 severe obesity in adult (HCC) ALLERGIES Allergen Reactions Grass Pollen-Bermud* Unknown Amoxicillin Diarrhea Vancomycin Hives Burning sensation Cetirizine Hives, Other: See Comments, Rash hives 01/05/2024 MRI/MRA Brain: IMPRESSION: 1. No acute intracranial findings. 2. No pathologic enhancement or morphologic distortion of either trigeminal nerve. No evidence of arterial impingement on the trigeminal nerves. 3. Patent intracranial vasculature. No aneurysm is identified. RESULT: BRAIN: Acute Change: There is no evidence of restricted diffusion to suggest an acute infarct. Hemorrhage: No evidence of prior parenchymal hemorrhage on the provided images. Mass Lesion/ Mass Effect: No evidence of an intracranial mass or extra-axial fluid collection. No significant mass effect. Chronic Change: The white matter is within normal limits of signal intensity for age. Parenchyma: No significant volume loss for age. The brain parenchyma is otherwise within normal limits of signal intensity and morphology. Ventricles: Normal caliber and morphology. Skull Base: Hypothalamic and pituitary region are grossly normal. Craniocervical junction is normal. No significant marrow replacement process. There is an enhancing vascular structure in close proximity to the cisternal segment of the left trigeminal nerve which is favored to be venous. No morphological distortion or pathologic enhancement of either trigeminal nerve. No pathologic enhancement of the other visualized cranial nerves. Vasculature: Major intracranial arterial structures, and dural venous sinuses show typical flow void, suggesting patency by spin echo criteria. Other: Mucosal thickening of the left maxillary sinus and left anterior ethmoid air cells. The other paranasal sinuses are clear. Mastoid air cells are well aerated. Orbits and globes are unremarkable. Atypical DWI signal within the bilateral occipital condyles and sphenoid wings which is nonspecific and likely physiologic given the symmetric appearance. The other marrow signal of the skull base and calvarium is within normal limits. Visualized extracranial soft tissues are within normal limits. INTRACRANIAL MRA: Bilateral intracranial ICAs, ACAs, and MCAs are patent. No aneurysm is identified. Bilateral V4 vertebral artery segments, basilar artery, and major branch vessels are patent. Bilateral greens cutter are patent with conventional bilateral origins. No arterial impingement is identified on either trigeminal nerve. I have reviewed the Health Status Assessment responses and discussed these with the patient: yes Deuce Farley APRN.HR RECRUITER HEADACHE SCORES: 12/13/2023 03/19/2024 Headache Questions Face pain on one side only: Yes Do you have Trigeminal neuralgia: Yes Face pain described as: Electric shock Do you have numbness with severe pain: No Pain triggered by brushing your teeth, eating, shaving or touching your face: No Days per month with mild/moderate face pain: 10 5 Days per month with severe face pain: 0 1 Days per month free from face pain: 12 12/13/2023 STEVENSON - 2/7 SCORES STEVENSON-2 Score 5 STEVENSON-7 Score 17 12/13/2023 Pain Disability Index PDI Score 17 12/13/2023 PHQ-9 Score 16 Review of Systems: Review of system: unchanged from the previous visit (sleep patterns, mood, energy, appetite, stress, exercising). Examination: Vital Signs: LMP 06/04/2022 Limited due to the nature of the visit General: well appearing, in no acute distress, well-hydrated, well nourished, alert Pain Behaviors:no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 your care. To Schedule an appointment, please choose one of the following: - Call the Appointment Call Center at [phone] - From [facility], Go to Appointments - Request an Appt documented in this encounterOhio State [facility] Hospital04-19-2024 Instructions* Patient Instructions* Olga Pryor PA-C - 11/25/2023 8:47 AM EDT Remain on Program A and monitor for 3 days. If no improvement in your symptoms, next, increase the amplitude to where you feel the sensation. Stay there for a few days and monitor symptoms. If no improvement THEN Change the program starting next with program B, then repeat steps above (try each program for at least 7-10 days and increase the amplitude throughout to ensure you feel stimulation initially). documented in this encounterOhio State East Hospital04-19-2024 History of Present illness Narrative* Olga Pryor PA-C - 11/25/2023 8:40 AM EDT [facility] RECONSTRUCTIVE SURG[facility] FEMALE UROLOGY- INTERSTIM TEST History of Presenting Illness: 28 year old female with PMH of spastic quadriplegic cerebral palsy here today for interstim device evaulation. Device placed on 06/28/[address] Aggarwal for urge incontinence. Last seen on 10/21/23. Advised to stay on program 6; and go to program A if no improvement. Stay on myrbetriq 50 mg. Reports she couldn't feel a difference between Program 6 and Program 1 (didn't see program A); reports some days it works great and then other days, she feels no difference in symptoms at all. Reports some mornings she will stand up and the urine just comes out. Reports she did better with Stage I; since stage symptoms, symptos have not been great . Endorses significant urinary urgency, have to get there GRACE Reports she is at approximately 40% symptom improvement. PAIN ASSESSMENT: Are you currently having pain? No 0 on a scale of 0 to 10 TYPE OF DEVICE: Interstim 2 NUMBER OF PROGRAMS: 7 INITIAL SETTINGS: PROGRAM 1 Pulse amplitude: 0.6 V SETTING CHANGES: PROGRAM A Pulse amplitude: 0.3 Stimulation location: VAGINAL Bilateral RATE: 15 WIDTH: 330 ADDED PROGRAM B-D BATTERY: OK IMPEDENCE: NONE ASSESSMENT/PLAN: 1. Urge incontinence - ICD9: 788.31, ICD10: N39.41 - GEMTESA 75 MG TABLET -Patient to remain on Program A. If symptoms worsen, educated patient to first ensure device is turned on, next, increaes the amplitude for a few days, and finally change the program if no improvement (B,C,D) -Educated pt on how to check if device is on and off, how to turn device on and off, how to increase amplitude and programs if necessary. Pt demonstrated ability. -D/C myrbetriq and start gemtesa 75 mg -moving back to [place] in a few months -answered questions about Mirena, but advised to reach out to prescribing physician Olga Pryor PA-C Electronically signed Visit complexity inherent to evaluation and management associated with medical care services that serve as the continuing focal point for all needed health care services and/or with medical care services that are part of ongoing care related to a patient s single, serious condition or a complex condition. documented in this encounterOhio State [facility] Hospital03-15-2024 Instructions* Patient Instructions* Olga Pryor PA-C - 10/21/2023 2:05 PM EDT Remain on Program 6 and monitor for 3 days. If no improvement in your symptoms, next, increase the amplitude to where you feel the sensation. Stay there for a few days and monitor symptoms FOR 2 WEEKS If no improvement THEN Change the program starting next with program A, then repeat steps above (try each program for at least 7-10 days and increase the amplitude throughout to ensure you feel stimulation initially). SEND AN UPDATE IN 4 WEEKS IF NO IMPROVEMENT. documented in this encounterOhio State [facility] Hospital03-15-2024 History of Present illness Narrative* Olga Pryor PA-C - 10/21/2023 2:00 PM EDT [facility] RECONSTRUCTIVE SURGERY CC [facility] FEMALE UROLOGY- INTERSTIM TEST History of Presenting Illness: 28 year old female with PMH of spastic quadriplegic cerebral palsy here today for interstim device evaulation. Device placed on 06/28/[address] Aggarwal for urge incontinence. Seen in January [address] Aggarwal; was recommended to go back on Program 6; and start myrbetriq. 2-3 weeks ago, developed trigeminal nerve pain, reports during this time her bladder was shot . Unable to hold to bladder at this time. More recently, patient is urinating approximately 4-5 times during the day, and 0 times at night. Reports incontinence is not great ; will get urgency and some UUI at times. Has not made any recent adjustments. Feels she achieved around 45% symptom improvement overall. PAIN ASSESSMENT: Are you currently having pain? No 0 on a scale of 0 to 10 TYPE OF DEVICE: Interstim 2 NUMBER OF PROGRAMS: 7 INITIAL SETTINGS: PROGRAM 2 Pulse amplitude: 0.5 V SETTING CHANGES: PROGRAM 6 Pulse amplitude: 0.7 V Stimulation location: RECTAL Bilateral PULSE AMPLITUDE: 330 RATE: 15 BATTERY: 40% IMPEDENCE: NONE PLAN: 1. OAB (overactive bladder) - ICD9: 596.51, ICD10: N32.81 - MIRABEGRON ER 50 MG TABLET,EXTENDED RELEASE 24 HR -Patient to remain on Program 6. If symptoms worsen, educated patient to first ensure device is turned on, next, increaes the amplitude for a few days, and finally change the program if no improvement, IN 2 WEEKS TO PROGRAM A -Educated pt on how to check if device is on and off, how to turn device on and off, how to increase amplitude and programs if necessary. Pt demonstrated ability. -Continue myrbetriq 50 mg -will send update in 1 month -if no improvement; will consider switching to gemtesa, or consider botox Olga Pryor PA-C documented in this encounterOhio [facility]24 Miscellaneous Notes* Telephone Encounter - Kole Hercules RN - 10/14/2023 3:42 PM EST Patient calling with request for physician referral: Patient referred to Neurology Department for facial neuralgia. Patient denies any new or worsening symptoms of which a provider is not aware: Yes. GO TO THE EMERGENCY ROOM OR CALL 911 IF: * You develop any new symptoms * Your condition worsens * You are concerned or anxious about your condition for any other reason. documented in this encounterOhio State East Hospital03-06-2024 Evaluation note* Author Marguerite Shannon [facility] Authored October 12, 2023 1:51 pm The above note written by DEMETRIUS Gutierrez acting as human recorder, note dictated by Dr. Dionne Chambers . Author Madie Wilcox [facility] Authored December 19, 2023 12:27 pm The above note written by Tello ROMO acting as human recorder, note dictated by Dr. Dionne Chambers. [facility] Work Phone: 1(812) 472-223901-12-2024 Evaluation note* Encounter Date Diagnosis Assessment Notes Treatment Notes Treatment Clinical Notes Aug, Abnormal thyroid blood test (ICD-10 - R94.6) Thyroid antibodies are elevated. 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 Aug, Hyperlipidemia (ICD-10 - E78.5) Blood work results reviewed with the patient. Total cholesterol is slightly elevated at 210, HDL is WNL at 57 and LDL is elevated at 128. Patient is to continue to monitor diet. Aug, COVID-19 (ICD-10 - U07.1) Patient completed the paxlovid and reports feeling much better. Cough is still lingering but I advised her the cough can linger for a few more weeks. 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 Aug, Eustachian tube dysfunction, bilateral (ICD-10 - H69.83) Noted upon examination. The patient does not have impacted wax. 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 Ames as scheduled. Aug, Obesity (ICD-10 - E66.9) I advised the patient to check with her insurance on coverage for GLP-1 options. [employer] Other 12-19-2023 Evaluation note* Encounter Date Diagnosis Assessment Notes Treatment Notes Treatment Clinical Notes Jul, Abnormal thyroid blood test (ICD-10 - R94.6) Patient did have blood work records on her phone from the ER in [place], showing elevated thyroid antibodies but the free T4 and T3 were both normal. Patient is only in town for a few weeks, therefore I am not confident an packing machine inspector could see her before then. Patient is to get blood work recheck tomorrow morning. Jul, Difficulty sleeping (ICD-10 - G47.9) Patient is to get blood work collected tomorrow morning. Jul, BMI 45.0-49.9, adult (ICD-10 - Z68.42) Patient reports having no appetite and can go a few days without eating but reports still gaining weight. Patient is wheelchair bound therefore she is unable to exercise. Jul, Obesity (ICD-10 - E66.9) Patient did fail on the adioex, reported negative side effects. Jul, Right knee pain, unspecified chronicity (ICD-10 - M25.561) Patient is to continue to follow with Dr. Travis. Jul, Hyperglycemia (ICD-10 - R73.9) Patient has had a few elevated glucose readings at the ER in [place]. Jul, Hyperlipidemia (ICD-10 - E78.5) Patient is to get blood work collected tomorrow morning. Jul, Right upper quadrant abdominal pain (ICD-10 - R10.11) US ordered to rule out abnormalities. Jul, Fatty liver (ICD-10 - K76.0) US ordered to rule out abnormalities. [email or web address] Other 07-28-2023 Miscellaneous Notes* Telephone Encounter - Reyna Rome - 03/04/2023 1:38 PM EDT Patient phones requesting refills as follows: Patient states her middle name needs to be on the bottle. Middle name Jacqueline added to the demographic screen. Patient now resides in [place]. Requested Prescriptions Pending Prescriptions Disp Refills mirabegron (MYRBETRIQ) 50 mg Tb24 30 tablet 5 Sig: Take 1 tablet by mouth once daily. Please review and advise. Reyna Rome documented in this encounterOhio State East Hospital06-29-2023 History of Present illness Narrative* Dian Desai MD - 02/03/2023 9:15 AM EDT [facility] FOR FEMALE PELVIC MEDICINE AND RECONSTRUCTIVE SURGERY HISTORY OF PRESENT ILLNESS: Vijaya Tinsley is a 27 year old F here today for a follow up regarding OAB. 07/27/22 visit, fell POD#1 on her butt and had less efficacy since then. Today, she voids q2.5-3hr,ISMAEL <UUI (2-3pads) with some days ok . She was doing well with program 5 @0.7 during trial period with very little leakage. She increased to 0.9mA on program 5 yesterday with little improvement. Xray ordered to r/o lead migration. Switched to program A (0+, 1-) at 0.3mA, felt at buttocks no leg. From my note on 07/27/22: Program 5 (3+, 0 and 1-) at 0.9mA --> decreased to 0.8 mA, felt in buttock midline Program 1 (3+, 0-) --> vagina 0.6mA, felt down right leg Program 2 (3+, 1-)--> buttock 0.5mA, no leg Program 3(0+, 2-) --> buttock 0.7mA, no leg Program 4 (0-, 3-)--> buttock 1.3mA, no leg Program 6 (3+, 2 and 1-)-->1 mA upper back Program 7(0+, 2 and 3-)--> 0.9mA buttock, no leg Program A (0+, 1-)--> 0.3mA, buttock, no leg Impedence good 09/10/22 visit, on program 7. voids q3.5hrs-5hrs, UI (2-3pads but sometime soaked something, but it is better than before), can hold it for 45mins before it was not at all. Reports some pain during charging at site of IPG if it's at the wrong location that lasts a few seconds. 11/16/22 visit, programming not working as well. Currently on program 7; 0.8mA. Not as good as during trial. Recent constipation, now taking senna prn with relief. Voids q3-4hrs, UUI (3pads/d, a little bit soaked). Will have rep reach out to assist with programming. Possible xray if no improvement with new program. Today, program 6 @0.7mA . Reports she has good day and bad days with symptoms but overall has 75-80% improvement. Continues with vesicare. Voids q2-4hrs. Feels like her bladder doesn't full empty at times. UUI worse in the morning, Will wake up wake some days. 3pads/d.Experiencing constipation, states it's better but not great. Reports trouble with device connecting to the bariatric program coordinator. Reports right leg pain with lifting for 1 month HISTORIES: PAST MEDICAL HISTORY PAST MEDICAL HISTORY Diagnosis Date Class 3 severe obesity in adult (HCC) 06/11/2022 PAST SURGICAL HISTORY PAST SURGICAL HISTORY Procedure Laterality Date ANKLE SURGERY HX Left Left ankle infection KNEE SURGERY HX ORAL SURGERY PROCEDURE root canal FAMILY HISTORY FAMILY HISTORY Problem Relation Age of Onset Anesthesia Problems No Family History SOCIAL HISTORY Social History Tobacco Use Smoking status: Never Smokeless tobacco: Never Substance Use Topics Alcohol use: Not Currently Drug use: Never MEDICATIONS: Current Outpatient Medications Medication Sig solifenacin (VESICARE) 10 mg tablet Take 1 tablet by mouth once daily. diphenhydramine HCl (BENADRYL ALLERGY ORAL) Take by mouth as needed. keTORolac (TORADOL) 10 mg tablet Take 1 tablet by mouth every 6 hours as needed for up to 10 doses. No current facility-administered medications for this visit. CURRENT ALLERGIES: Allergies As of Date: 02/03/2023 Allergen Noted Reaction GRASS POLLEN-BERMUDA, STANDARD 08/08/2008 Unknown AMOXICILLIN 01/15/2022 Diarrhea VANCOMYCIN 06/30/2019 Hives CETIRIZINE 03/16/2013 Hives, Other: See Comments, and Rash Fully Assessed 11/16/2022 PHYSICAL EXAM: General: No acute distress, well appearing : Not indicated Skin: IPG incision well appearing- no erythema, fluctuance, tenderness. UA: Positive for: Blood on her period IMPRESSION: ASSESSMENT/PLAN: 1. OAB (overactive bladder) - ICD9: 596.51, ICD10: N32.81 (primary diagnosis) Interrogated Interstim. Transitioned to program 2 at 0.5mA, but she was having 75-80% on program 6. Recommend going back toprogram 6 if no better improvement with program 2. Will try mirabegron. Stop vesicare. Option to try botox given for even better improvement, but she defers . Rx mirabegron. 2. Obesity, Class III, BMI 40-49.9 (morbid obesity) (HCC) - ICD9: 278.01, ICD10: E66.01 3. Moderate protein-calorie malnutrition (HCC) - ICD9: 263.0, ICD10: E44.0 Follow up with jessie in 6m All questions and concerns were addressed. Sita Conteh HOG [employer]ER ATTESTATION I have personally interviewed and examined this patient and we discussed the recommendations in detail. I agree with sita's documentation and have edited the note. Dian Desai MD Associate Staff Female Pelvic Medicine and Reconstructive Surgery [facility] [place] [facility] documented in this encounterOhio State East Hospital06-26-2023 Miscellaneous Notes* Telephone Encounter - Beti Padron - 01/31/2023 1:51 PM EDTSummary: pt wants xray of back Good afternoon Pt says she spoke to someone a few days ago. Having lower back pain You want to make sure the battery has not moved. Best [phone] Thanks Beti Padron documented in this encounterOhio State East Hospital06-21-2023 Miscellaneous Notes* Telephone Encounter - Sita Conteh RN - 01/26/2023 1:12 PM EDT Spoke to patient who reports swelling to mid lower back and by battery site for 2 days. Denies injury, redness, numbness, swelling. States it's an aching pain that doesn't allow her to sit for very long. Offered an office visit w/ JESSIE for eval today or tomorrow but not able to make either appointment. Advised she can go to Urgent care for eval, can try icing the area to see if that helps. Will reach out to our group for any other recommendations and follow up with patient. Pt appreciative of call. Sita Conteh, RN documented in this encounterOhio State East Hospital04-11-2023 History of Present illness Narrative* Dian Desai MD - 11/16/2022 3:55 PM EDT This is a Virtual Visit. It required lonzbhz-pe-uqkqshkf interaction with medical decision making as documented below. I spent a total of 25 minutes on the date of the service which included preparing to see the patient, eneu-kx-ragz patient care, completing clinical documentation, obtaining and/or reviewing separately obtained history, counseling and educating the patient/family/caregiver, and care coordination (no t separately reported). I have communicated my name and active licensure. The patient's identity and physical location wereverified at the time of this visit. Either the patient or their legal underwriting service representative has been informed of the risks and benefits of -- and alternatives to -- treatment through a remote evaluation andconsents to proceed with the evaluation remotely. [facility] FOR FEMALE PELVIC MEDICINE AND RECONSTRUCTIVE SURGERY HISTORY OF PRESENT ILLNESS: Vijaya Tinsley is a 27 year old female here today for a follow up regarding urgency, frequency, UUI. From my note on 07/27/22: Program 5 (3+, 0 and 1-) at 0.9mA --> decreased to 0.8 mA, felt in buttock midline Program 1 (3+, 0-) --> vagina 0.6mA, felt down right leg Program 2 (3+, 1-)--> buttock 0.5mA, no leg Program 3(0+, 2-) --> buttock 0.7mA, no leg Program 4 (0-, 3-)--> buttock 1.3mA, no leg Program 6 (3+, 2 and 1-)-->1 mA upper back Program 7(0+, 2 and 3-)--> 0.9mA buttock, no leg Program A (0+, 1-)--> 0.3mA, buttock, no leg Was placed on 0.8mA program 7 during last visit, but continues to have some symptoms. Says not as good as during trial. She was constipated prior so has been taking senna prn (q1-2x/n) which is no wkeeping her bowel regulars. She voids q3-4hrs, UUI (3 pads/d, a little bit soaked). HISTORIES: PAST MEDICAL HISTORY PAST MEDICAL HISTORY Diagnosis Date Class 3 severe obesity in adult (HCC) 06/11/2022 PAST SURGICAL HISTORY PAST SURGICAL HISTORY Procedure Laterality Date ANKLE SURGERY HX Left Left ankle infection KNEE SURGERY HX ORAL SURGERY PROCEDURE root canal FAMILY HISTORY FAMILY HISTORY Problem Relation Age of Onset Anesthesia Problems No Family History SOCIAL HISTORY Social History Tobacco Use Smoking status: Never Smokeless tobacco: Never Substance Use Topics Alcohol use: Not Currently Drug use: Never MEDICATIONS: Current Outpatient Medications Medication Sig solifenacin (VESICARE) 10 mg tablet Take 1 tablet by mouth once daily. diphenhydramine HCl (BENADRYL ALLERGY ORAL) Take by mouth as needed. keTORolac (TORADOL) 10 mg tablet Take 1 tablet by mouth every 6 hours as needed for up to 10 doses. No current facility-administered medications for this visit. CURRENT ALLERGIES: Allergies As of Date: 11/16/2022 Allergen Noted Reaction GRASS POLLEN-BERMUDA, STANDARD 08/08/2008 Unknown AMOXICILLIN 01/15/2022 Diarrhea VANCOMYCIN 06/30/2019 Hives CETIRIZINE 03/16/2013 Hives, Other: See Comments, and Rash Fully Assessed 09/10/2022 IMPRESSION: ASSESSMENT/PLAN: 1. OAB (overactive bladder) - ICD9: 596.51, ICD10: N32.81 She has taken care of her constipation. Will have rep reach out to re-program her for better symptom relief. May consider XRAY if re-programming doesn't work. All questions and concerns were addressed. Dian Desai MD documented in this encounterOhio State East Hospital04-10-2023 Miscellaneous Notes* Telephone Encounter - Poly Lund PA-C - 11/15/2022 3:06 PM EDT Coverage for Dr ROSAS This does not sound correct I will email our [employer] Poly Lund PA-C * Telephone Encounter - Beti Padron - 11/12/2022 2:05 PM EDTSummary: pt has questions regarding an mri Good afternoon: Pt called, she knows you wont be back till Tuesday She was ordered two MRI brain and lower lumbar by Her cerebral palsy doctor. But was told she had to do the 2 separate times for 20 minutes only because of her back medtronic implant. She is asking if that sounds correct to you. Best # [phone] Thanks Beti Padron documented in this encounterOhio State East Hospital02-09-2023 Miscellaneous Notes* Telephone Encounter - Beti Padron - 09/16/2022 4:03 PM ESTSummary: pt wants refill on solifenacin Good Afternoon: Pt would like a refill of Solifenacin to [facility] [address] [place] [address] [facility] [id number] [facility] [phone] Best [phone] Thanks Beti Padron documented in this encounterOhio State East Hospital02-03-2023 History of Present illness Narrative* Dian Desai MD - 09/10/2022 3:47 PM EST This is a Virtual Visit. It required oqwvzdh-ib-hnjwrlsw interaction with medical decision making as documented below. I spent a total of 30 minutes on the date of the service which included preparing to see the patient, swps-dc-oiow patient care, completing clinical documentation, obtaining and/or reviewing separately obtained history, counseling and educating the patient/family/caregiver, and ordering medications, tests, or procedures. [facility] FOR FEMALE PELVIC MEDICINE AND RECONSTRUCTIVE SURGERY HISTORY OF PRESENT ILLNESS: Vijaya Tinsley is a 26 year old F here today for a follow up regarding UUI. She was transitioned program A, which she had problems - more urgency. She went back to program 7 on 08/06/22 which is better. From my note on 07/27/22: Program 5 (3+, 0 and 1-) at 0.9mA --> decreased to 0.8 mA, felt in buttock midline Program 1 (3+, 0-) --> vagina 0.6mA, felt down right leg Program 2 (3+, 1-)--> buttock 0.5mA, no leg Program 3(0+, 2-) --> buttock 0.7mA, no leg Program 4 (0-, 3-)--> buttock 1.3mA, no leg Program 6 (3+, 2 and 1-)-->1 mA upper back Program 7(0+, 2 and 3-)--> 0.9mA buttock, no leg Program A (0+, 1-)--> 0.3mA, buttock, no leg Today, she is on 0.8mA program 7. She voids q3.5hrs-5hrs, UI (2-3pads but sometime soaked something, but it is better than before), can hold it for 45mins before it was not at all. Reports some pain during charging at site of IPG if it's at the wrong location that lasts a few seconds. She is on medication - causing constipation so unsure if the pressure is from the constipation or bladder. On senna 3 days which helped but she is still having some hard stool. HISTORIES: PAST MEDICAL HISTORY PAST MEDICAL HISTORY Diagnosis Date Class 3 severe obesity in adult (HCC) 06/11/2022 PAST SURGICAL HISTORY PAST SURGICAL HISTORY Procedure Laterality Date ANKLE SURGERY HX Left Left ankle infection KNEE SURGERY HX ORAL SURGERY PROCEDURE root canal FAMILY HISTORY FAMILY HISTORY Problem Relation Age of Onset Anesthesia Problems No Family History SOCIAL HISTORY Social History Tobacco Use Smoking status: Never Smokeless tobacco: Never Substance Use Topics Alcohol use: Not Currently Drug use: Never MEDICATIONS: Current Outpatient Medications Medication Sig baclofen (LIORESAL) 20 mg tablet Take 20 mg by mouth three times daily. amoxicillin (POLYMOX, AMOXIL) 500 mg capsule Take 500 mg by mouth three times daily. diphenhydramine HCl (BENADRYL ALLERGY ORAL) Take by mouth as needed. keTORolac (TORADOL) 10 mg tablet Take 1 tablet by mouth every 6 hours as needed for up to 10 doses. solifenacin (VESICARE) 10 mg tablet Take 1 tablet by mouth once daily. No current facility-administered medications for this visit. CURRENT ALLERGIES: Allergies As of Date: 09/10/2022 Allergen Noted Reaction GRASS POLLEN-BERMUDA, STANDARD 08/08/2008 Unknown AMOXICILLIN 01/15/2022 Diarrhea VANCOMYCIN 06/30/2019 Hives CETIRIZINE 03/16/2013 Hives, Other: See Comments, and Rash Fully Assessed 07/27/2022 IMPRESSION: ASSESSMENT/PLAN: 1. OAB (overactive bladder) - ICD9: 596.51, ICD10: N32.81 Objectively better on Program 7 at 0.8mA with decrease in frequency, leakage and improved ability to hold urine longer. She is constipated so discussed that this can impact urinary symptoms, which she also voiced concerned that this may be the issue. Recommend aggressive bowel cleanse then maintain bowel regimen. Monitor symptoms F/U in 2-3 months for symptoms check. All questions and concerns were addressed. Dian Desai MD documented in this encounterOhio State East Hospital01-09-2023 Evaluation note* Encounter Date Diagnosis Assessment Notes Treatment Notes Treatment Clinical Notes Aug, Impacted cerumen of both ears (ICD-10 - H61.23) A successful bilateral ear irrigation performed. The patient tolerated the procedure well. Aug, Skin tags, multiple acquired (ICD-10 - L91.8) The patient has several skin tags located on the right eyelid, right side of the neck and right antecubital space. I did explain the process of hyfrecation. The patient declines the procedure at this time, she will be seeing her ophthalmoloigst later today or tomorrow and I suggest she ask them about the tags on the right eyelid. [employer] Other 12-20-2022 History of Present illness Narrative* Joana Luong, RT(R) - 07/27/2022 10:35 AM EST Radiology Service Progress Note PATIENT NAME: Vijaya Tinsley DATE OF SERVICE: July 27, 2022 TIME: 10:44 AM PATIENT IDENTITY VERIFICATION COMPLETED USING TWO (2) IDENTIFIERS: Name and Date of confirmedby patient verbally. FALL SCREENING: Has the patient had 2 falls in the last year or 1 fall with injury or currently using an Ambulatory Assistive Device (Walker, Cane, Wheelchair, Crutches, etc.)? No PATIENT GENDER DATA: Female. status: : No status: NO. PATIENT RELEVANT IMPLANT DATA REVIEWED: Not Applicable RADIOLOGY DEPARTMENT: General X-ray: Exam(s) Completed: Pelvis X-Ray: Pelvis General AP PERIPHERAL IV DATA: Not applicable SIGNED BY: RT Av(R) July 27, 2022 10:44 AM documented in this encounterOhio State East Hospital12-20-2022 History of Present illness Narrative* Dian Desai MD - 07/27/2022 9:19 AM EST [facility] FOR FEMALE PELVIC MEDICINE AND RECONSTRUCTIVE SURGERY HISTORY OF PRESENT ILLNESS: Vijaya Tinsley is a 26 year old F here today for a follow up regarding urinary frequency s/p interstim (06/29/2022). She has urinary frequency s/p stage 1 and 2 interstim (06/29) here for follow up. She fell POD#1 on her butt and had less efficacy since then. Today, she voids q2.5-3hr, ISMAEL <UUI(2-3pads) with some days ok . She was doing well with program 5 @0.7 during trial period with verylittle leakage. She increased to 0.9mA on program 5 yesterday with little improvement. Program 5 (3+, 0 and 1-) at 0.9mA --> decreased to 0.8 mA, felt in buttock midline Program 1 (3+, 0-) --> vagina 0.6mA, felt down right leg Program 2 (3+, 1-)--> buttock 0.5mA, no leg Program 3(0+, 2-) --> buttock 0.7mA, no leg Program 4 (0-, 3-)--> buttock 1.3mA, no leg Program 6 (3+, 2 and 1-)-->1 mA upper back Program 7(0+, 2 and 3-)--> 0.9mA buttock, no leg Program A (0+, 1-)--> 0.3mA, buttock, no leg Impedance good. HISTORIES: PAST MEDICAL HISTORY PAST MEDICAL HISTORY Diagnosis Date Class 3 severe obesity in adult (HCC) 06/11/2022 PAST SURGICAL HISTORY PAST SURGICAL HISTORY Procedure Laterality Date ANKLE SURGERY HX Left Left ankle infection KNEE SURGERY HX ORAL SURGERY PROCEDURE root canal FAMILY HISTORY FAMILY HISTORY Problem Relation Age of Onset Anesthesia Problems No Family History SOCIAL HISTORY Social History Tobacco Use Smoking status: Never Smokeless tobacco: Never Substance Use Topics Alcohol use: Not Currently Drug use: Never MEDICATIONS: Current Outpatient Medications Medication Sig baclofen (LIORESAL) 20 mg tablet Take 20 mg by mouth three times daily. amoxicillin (POLYMOX, AMOXIL) 500 mg capsule Take 500 mg by mouth three times daily. diphenhydramine HCl (BENADRYL ALLERGY ORAL) Take by mouth as needed. keTORolac (TORADOL) 10 mg tablet Take 1 tablet by mouth every 6 hours as needed for up to 10 doses. solifenacin (VESICARE) 10 mg tablet Take 1 tablet by mouth once daily. No current facility-administered medications for this visit. CURRENT ALLERGIES: Allergies As of Date: 07/27/2022 Allergen Noted Reaction GRASS POLLEN-BERMUDA, STANDARD 08/08/2008 Unknown AMOXICILLIN 01/15/2022 Diarrhea VANCOMYCIN 06/30/2019 Hives CETIRIZINE 03/16/2013 Hives, Other: See Comments, and Rash Fully Assessed 07/27/2022 PHYSICAL EXAM: General: No acute distress, well appearing Back: right sided IPG site well appearing with no signs of infection. Not tender IMPRESSION: ASSESSMENT/PLAN: 1. Urinary frequency - ICD9: 788.41, ICD10: R35.0 Interrogated device. Impedance is good. Reprogrammed deviced. Switched to Program A (0+, 1-) at 0.3mA. felt at buttocks no leg. Will monitor symptoms. Will obtain XRAY to rule out lead migration. - XR PELVIS 1V AP - XR PELVIS 1V LATERAL VV in 3-4weeks All questions and concerns were addressed. Dian Desai MD Medical Decision Making: Problems: Moderate: 1+ chronic illnesses with change Risk: Low: Low risk from testing/treatment Medical Decision Making Level: 3 - Low I spent a total of 35 minutes on the date of the service which included preparing to see the patient, [id number] patient care, completing clinical documentation, obtaining and/or reviewing separately obtained history, performing a medically appropriate examination, counseling and educating the pat ient/family/caregiver, and ordering medications, tests, or procedures. documented in this encounterOhio [facility] Evaluation note* Encounter Date Diagnosis Assessment Notes Treatment Notes Treatment Clinical Notes Jul, Anxiety (ICD-10 - F41.9) [email or web address].cn Other [id number] Miscellaneous Notes* Telephone Encounter - Beti Padron - 07/06/2022 1:16 PM ESTSummary: pt returning your call Good Afternoon: Pt said she missed your call Best# [phone] Thanks Beti Padron documented in this encounterOhio [facility]11-28-2022 Miscellaneous Notes* Telephone Encounter - Roxanna Serrano DO - 07/05/2022 3:44 PM EST Patient states she increased in current program from to 0.7 to 0.8. Symptoms have improved somewhat. Asking if she can have an Xray to assess. Will message Dr. Alessia Desai, although told patient liklihood of displacement is low. Still on vesicare. Ok to resume cerebral palsy medication. Has a meet for mary shooting, sits in wheelchair, is asking if ok to do competition on 07/17. Will call her back with recommendations. Roxanna Serrano DO * Telephone Encounter - Beti Padron - 07/05/2022 11:15 AM ESTSummary: pt would like to take a medcation Good Morning: Pt called she wants to know if she can take (Tivanidime) hcl 4 mg, per aixa sánchez for Cerebral palsy Also, her leads are not working,can we do An xray to see if its still working since her procedure, she had a fall and it is not working for her now. Can she start that now? Best# [phone] Thanks Beti Padron documented in this encounterOhio [facility] Hospital11-23-2022 Miscellaneous Notes* Telephone Encounter - Roxanna Serrano DO - 06/30/2022 3:01 PM EST Phone encounter s/p stage 2 on 06/28. Was taking vesicare during stage 1 trial. Has not taken it since 06/28. States urinary symptoms are back to baseline without the vesicare. Encouraged her to continue the vesicare until follow up appointment. Encourage her to keep bladder diary. No fevers, chills, erythema around incision site. In addition, Patient states she fell the day of surgery on her bottom once she was home. She lost her balance, did not lose consciousness. Message sent to schedulers for follow up with Dr. Alessia Desai in 4-6 weeks. Roxanna Serrano DO * Telephone Encounter - Beti Padron - 06/30/2022 12:50 PM ESTSummary: pt wants to know if she should continue her solisenacin Good Afternoon Pt wants to know if she should continue her Stimulator its not working like she wants should she up her stimulator or go back on medicine Best # [phone] Thanks Beti Padron documented in this encounterOhio [facility] Hospital11-17-2022 Miscellaneous Notes* Telephone Encounter - Nallely Escobar RN.BSN - 06/24/2022 10:34 AM EST Spoke to pt. Advised her to reinforce the dressing the best she can, and to not remove the tegaderm as that could misplace the leads. Pt scheduled for stage [address] ROSAS. Pt agreeable, all questions and concerns addressed. Nallely Escobar, LOKIE ENGINEER * Telephone Encounter - Beti Padron - 06/24/2022 10:14 AM ESTSummary: pt says top of bandage came off Good Morning: Pt said the top of her bandage came off even the tape. She wants to know what to do? Thanks Best # [phone] Thanks Beti Padron Adm Asst documented in this encounterOhio State [facility] Hospital11-14-2022 Miscellaneous Notes* Telephone Encounter - Anita Bill MD - 06/21/2022 4:17 PM EST S/P SNM stage I on 06.14. Patient feeling well, no pain. Changed programs w Darell, some days works better than others. Sometimes feels able to hold longer, that leaks are less frequent and in smaller amounts. Filling diaries. Pt wanted to know where IPG will be implanted, rechargeable vs non-rechargeable that can perhaps bedeeper under the skin and lower chance of pressure ulcer from prolonged sitting on wheelchair. This & many other questions answered. Asked to trish Aggarwal the placement of IPG, and if will be rechargeable - to discuss on day of procedure. patient will send previous and current diaries to Beti Padron for scanning into chart. All questions answered. Anita Bill MD June 21, 2022 4:24 PM documented in this encounterOhio [facility] Hospital11-09-2022 Miscellaneous Notes* Telephone Encounter - Anita Bill MD - 06/16/2022 3:28 PM EST POD2 interstim stage I Was concerned about local swelling, not severe. No local warmth or redness. No fever or chills. Still has some pain - took 1 analgesic pill yesterday. I encouraged her to use them as needed. Symptome improvement - able to go more, hold longer. Feels like leaks are less frequent and smallerin amount, filling her diaries. Will route to Dr Aggarwal for update. Anita Bill MD June 16, 2022 3:34 PM * Telephone Encounter - Beti Padron - 06/16/2022 1:04 PM ESTSummary: back is swollen Good Afternoon: Pt has surgery a couple days ago. Bladder stimuler. She is complaining that her back is swollen. Since yesterday. No fever no chills Its painful when she lays down 5 out of 10. Her best [phone] Thanks Beti Padron Adm Asst documented in this encounterOhio State [facility] Hospital11-03-2022 History and physical note * Mariela Duron PA-C - 06/10/2022 2:10 PM EDT HISTORY AND PHYSICAL EXAMINATION SERVICE DATE: June 10, 2022 SERVICE TIME: 9:57 AM PRIMARY CARE PHYSICIAN: Dionne Chambers DO REASON FOR VISIT: Vijaya Tinsley is a 26 year old female who is scheduled for * Surgery not found * at the request of for consultation. My final recommendation will be communicated back to the requesting physician by way of shared medical record or letter. The patient has the following: ACTIVE PROBLEM LIST Oab (Overactive Bladder) Neurogenic Bladder Asthma Diplegic Cerebral Palsy (Hcc) Fatty (Change Of) Liver, Not Elsewhere Classified Class 3 Severe Obesity in Adult (Hcc) Subjective CHIEF COMPLAINT: Pre-op exam HPI: Vijaya Tinsley is a 26 year old female who presents for pre-anesthesia consultation for upcoming procedure. Patient has a history of urinary frequency, urgency and urge incontinence. Patient has previously trailed medications which provided no improvement in symptoms. Denies any fever, chills, nausea, vomiting, chest pain, abdominal pain, SOB. Above procedure is recommended to manage symptoms. Patient is scheduled for surgery on . PAST MEDICAL HISTORY Diagnosis Date Class 3 severe obesity in adult (HCC) 06/11/2022 PAST SURGICAL HISTORY Procedure Laterality Date ANKLE SURGERY HX Left Left ankle infection KNEE SURGERY HX ORAL SURGERY PROCEDURE root canal FAMILY HISTORY Problem Relation Age of Onset Anesthesia Problems No Family History SOCIAL HISTORY: Social History Tobacco Use Smoking status: Never Smokeless tobacco: Never Substance Use Topics Alcohol use: Not Currently Drug use: Never MEDICATIONS: Prior to Admission medications as of 06/10/22 1347 Medication Sig Last Dose Taking solifenacin (VESICARE) 10 mg tablet Take 1 tablet by mouth once daily. Taking Yes No medication comments found. CURRENT ALLERGIES: ALLERGIES Allergen Reactions Grass Pollen-Bermud* Unknown Amoxicillin Diarrhea Vancomycin Hives Burning sensation Cetirizine Hives, Other: See Comments, Rash hives COVID VACCINATION STATUS: Fully vaccinated REVIEW OF SYSTEMS: PAIN ASSESSMENT: General: No weight loss, malaise or fevers. Neuro: +congenital CP, infantile hemiplegia Respiratory: +asthma Denies SOB with activity, recent bronchitis, pneumonia, Cardiovascular: No history of HTN requiring medication, no history of angina, CHF, RI, cardiac surgery or stents. Denies rest pain, gangrene or revascularization/amputation for PVD. No history of cardiovascular symptoms or problems. GI: No history of GI symptoms or problems. No history of esophageal varices, recent ascites, or ETOH greater than 2 drinks per day. +fatty liver : See HPI Endocrine: No history of diabetes. Has not taken steroids within the past 30 days. No history of endocrinological symptoms or problems. Hematology: No history of bleeding or clotting disorder. Pt is not taking anti- coagulation or platelet medications. No history of hematological symptoms or problems. Oncology: No history of CA metastasis, chemo within 30 days, or radiotherapy within 90 days. Has not lost 10% of body wt in 6 months. No history of oncological symptoms or problems. Psych: No history of psychiatric symptoms or problems. Musculoskeletal: Negative for joint pain or swelling, back pain or muscle pain. Skin: Negative for lesions, rash and itching. Objective PHYSICAL EXAM: VITALS: BP 128/68 Pulse 89 Temp (Src) 97.5 (Temporal) Ht 5' 2 (1.58m) Wt 242 lb (109.8kg) SpO2 99% LMP 06/04/2022 BMI 44.25 kg/(m^2). General: Alert and oriented, No acute distress, Morbidly obese, wheelchair bound Skin: Normal color, no rash, no lesions. HEENT: EOM, pupils equal, round and reactive. Cardiovascular: Normal S1 & S2, no rubs, murmurs or gallops. No JVD. Pulse regular. Lungs: Normal breath sounds, no wheezes or crackles. Abdomen: Soft, non-tender, no rigidity. Extremities: No deformity, no edema or tenderness, no joint swelling or clubbing. Neurological: Normal cognition , wheelchair bound Pulses: Radial pulses; left 2+ / right 2+. Diagnostic tests reviewed for today's visit: Lab Value Units Date High Low HB No results within date range. HCT No results within date range. WBC No results within date range. PLT No results within date range. NA No results within date range. K No results within date range. GLUC No results within date range. BUN No results within date range. CREAT No results within date range. PTSEC No results within date range. INR No results within date range. APTT No results within date range. ALT No results within date range. AST No results within date range. TBILI No results within date range. TSH No results within date range. Lab Value Units Date High Low HCGQT No results within date range. UHCG No results within date range. HCG, BODY* No results within date range. Lab Value Units Date High Low ABORHD No results within date range. ABSCREEN No results within date range. No results found for: HBA1C No results found for this or any previous visit (from the past 8760 hour(s)). No results found for this or any previous visit (from the past 83984 hour(s)). Assessment/Plan Diplegic cerebral palsy (HCC) Assessment: congenital, ambulates with crutches at home -neurogenic bladder Asthma Assessment: mild, stable ,has not needed inhaler recently -denies any worsening SOB Class 3 severe obesity in adult (HCC) Assessment: Body mass index is 44.26 kg/m . METS: Do light work around the house, such as dusting or washing dishes (2.70 METs) Take care of self; that is eating, dressing, bathing, using the toilet (2.75 METs) Limited most or all of the time (uses scooter, mobility device) - Ambulates with crutches at home ASA Class: 2 ANESTHESIA FINDINGS: Intubation History: No history of difficult intubation Significant Anesthesia Considerations: None Airway Exam: General: Morbid obesity Mallampati Score is CLASS II ULBT: Class II - Lower incisors can bite the upper lip below the varghese line Neck: Normal appearance and function, Distance from hyoid to mentum during neck extension is at least 3 finger breaths Mouth: Normal tongue size and Mouth opening greater than 2 finger breaths Dentition: Intact and Caps right upper molar Airway History: No abnormal airway history STOP BANG Score: Criteria: BMI > 35 Score = 1 PLAN Pt optimally prepared for surgery CONSULTS: Patient does not require consults for optimization at this time. The Following Tests/Procedures Have Been Initiated: Orders Placed This Encounter Urine Culture Standing Status: Future Number of Occurrences: 1 Standing Expiration Date: 08/10/2022 Order Specific Question: Source Answer: URINE-MIDSTREAM CLEAN CATCH, EKG not indicated per [facility] protocol T+S per surgical service Planned Anesthetic: Per anesthesia choice Instructions Given to Patient: Instructions located in the after visit summary. Patient given verbal and written preop instructions and voices comprehension and compliance. SIGNATURE: Mariela Duron PA-C PATIENT NAME: Vijaya Tinsley DATE: June 11, 2022 TIME: 9:57 AM documented in this encounterOhio [facility] Hospital11-03-2022 Instructions* Patient Instructions* Mariela Duron PA-C - 06/10/2022 9:49 AM EDT PATIENT PREOPERATIVE INSTRUCTIONS No ref. provider found has scheduled you for your procedure at this surgery center: [facility] [place] [facility] Scheduling Office: [phone] --[address] [place] [address]. Please read below carefully for your personalized instructions. Dietary Restrictions: - No solid food after midnight. - You may have 12 ounces of clear liquids (water, clear juices such as apple juice or gatorade, carbonated beverages, clear tea, black coffee, jello) until 2 hours before scheduled arrival at facility. Medications: Unless instructed differently below, stay on all of your medications until your surgery. Approved medications to take the morning of surgery with a sip of water: None If you start any new medications after today's visit, please contact the surgeon's office. Blood Thinning Medications: - Stop NSAIDS (Ibuprofen, Advil, Aleve, Motrin, Celebrex, Mobic, etc.) 7 days before surgery, as directed by your surgeon. - Stop Aspirin 7 days before surgery, as directed by your surgeon. - Stop Vitamin E, ALL multi-vitamins, herbals and dietary supplements 7 days before surgery. - You may take Tylenol (Acetaminophen) or any of your pain medications that do not contain aspirin or NSAIDS as needed. Important Reminders: - Candy, mints, and tobacco products are NOT permitted the morning of surgery. - Hearing aids, dentures and glasses may be worn the morning of surgery. - NO jewelry, body piercings, makeup, hairpins or contacts are to be worn the day of surgery. If you develop symptoms such as a fever, cold, or flu, or have other changes to your health within TWO DAYS of scheduled surgery or the morning of surgery, please contact the surgery center above. Personal Belongings: -Please have photo ID and insurance cards. -If you do not have a copy of advance directives on file with us, please bring a copy with you on the day of surgery. - Leave ALL valuables and money at home or with family members. For Outpatient Procedures: - YOU MUST HAVE A RESPONSIBLE REFINED SYRUP OPERATOR TAKE YOU HOME. A SUPERVISOR URANIUM PROCESSING OR WRAPPER STITCHER CANNOT BE MADE A RESPONSIBLE REFINED SYRUP OPERATOR. - We recommend that a responsible person stays with you overnight to take care of you. - You cannot stay in a hotel alone after outpatient surgery. You will not be permitted to have yoursurgery, if you do not have someone to take care of you. Arrival Time for Surgery: - To obtain your arrival time for surgery, call your physician's office the day before your surgery. - If your surgery is scheduled for Tuesday, call the Tuesday before. Your surgeon s database administrator will tell you what time to call the office. - If you have not reached the departmental database administrator by 5 P.M., call [phone] after 5 P.M. the day before your surgery. Please be aware that emergency situations arise, which may delay or change your surgical time. If this happens, we will notify you as soon as possible and regret any inconvenience. If you already have an Advance Directive, please fax a copy to [phone] or email to for it to be added to your chart. If you do not have an Advance Directive, you can find the appropriate form and more information at [email or web address]. We recommend that youcomplete the Advance Directive form found on the website and bring it with you the day of your surgery. It can be witnessed and scanned into your chart that day. Mariela Duron PA-C documented in this encounterOhio State [facility] Hospital10-20-2022 History of Present illness Narrative* Dian Desai MD - 05/27/2022 11:39 AM EDT [facility]IC[facility] RECONSTRUCTIVE SURGERY HISTORY OF PRESENT ILLNESS: Vijaya Tinsley is a 26 year old F female here today for a follow up regarding OAB and neurogenic bladder. Copied from y H&P on 04/28/2022: 06/2021: Saw urology for urinary frequency, urgency, urge incontinece. Trialed ditropan nad mirabegron and failed.On tropsium PVR: 54ml. 11/05/2021: OSH for dysuria, flank pain,, treated with keflex for UTI 11/2021: OSH UDS: low capacity 113ml, DO with leakage at low volume (36ml), compliant, high pressure/low flow with voiding but may be inaccurate because she only voided 60ml. but PVR: 50ml. 04/2022: today, reports frequency with voids q2-3hr, no nocturia (before 1x/n), ISMAEL=UUI (2 pad thick/d), some urgency. Trospium helped a bit but still bothersome sypmtoms. CTU(11/05/2021): no stones, HUN, Plan: SNM but she wanted to think about it so continued vesicare. 05/26/2022: Today, she is here for follow up. She indicates wanting to proceed with the procedure and is here with her father. HISTORIES: PAST MEDICAL HISTORY No past medical history on file. PAST SURGICAL HISTORY No past surgical history on file. FAMILY HISTORY No family history on file. SOCIAL HISTORY Social History Tobacco Use Smoking status: Never Smokeless tobacco: Never MEDICATIONS: Current Outpatient Medications Medication Sig solifenacin (VESICARE) 10 mg tablet Take 1 tablet by mouth once daily. Cholecalciferol, Vitamin D3, 125 mcg (5,000 unit) cap TAKE 1 CAPSULE BY MOUTH EVERY DAY FOR 90 DAYS No current facility-administered medications for this visit. CURRENT ALLERGIES: Allergies As of Date: 05/27/2022 Allergen Noted Reaction GRASS POLLEN-BERMUDA, STANDARD 08/08/2008 Unknown AMOXICILLIN 01/15/2022 Diarrhea VANCOMYCIN 06/30/2019 Unknown CETIRIZINE 03/16/2013 Hives, Other: See Comments, and Rash Fully Assessed 04/28/2022 PHYSICAL EXAM: General: No acute distress, well appearing HEENT: no respiratory distress IMPRESSION: ASSESSMENT/PLAN: 1. OAB (overactive bladder) - ICD9: 596.51, ICD10: N32.81 She has failed conservative and medical management on >2 drugs. Therefore, the options of third line therapies were discussed which includes intradetrusor botox injections, PTNS, and SNM. For botox, the risk of pain, infection, hematuria, urinary retention requiring self catheterizations and needing further procedures were discussed. For PTNS, we discussed that there low risk from this procedure but she will require a 30min session once a week for 12 weeks initially, then once a month afterwards for maintenance if she has symptom improvements. For SNM, we discussed that this will be done in two stages. First stage will be done as a PNE or stage 1 and is a trial period. There will be a temporary dressing for 2 weeks, and if there is > 50% improvement in symptoms during this time frame, then we proceed with stage 2 to implant the permanent battery. She understands the risks of pain,infection, bleeding, requiring anesthesia, failure of symptom improvements, need for revisions, andneed for battery replacement in the future. - She would like to proceed with Stage 1. All questions and concerns were addressed. Dian Desai MD Medical Decision Making: Problems: Moderate: 1+ chronic illnesses with change Risk: Moderate: Decision on minor surgery w/ risk factors Medical Decision Making Level: 4 - Moderate documented in this encounterOhio [facility] Hospital09-23-2022 Evaluation note* Encounter Date Diagnosis Assessment Notes Treatment Notes Treatment Clinical Notes Apr, Overactive bladder (ICD-10 - N32.81) The patient advised I am not familiar with the procedure or the positive /negative effects of a bladder stimulator. In general other implants such as pacemakers , pain stimulators have been effective. The surgery is outpatient. Per patient if the device does not work it is able to be removed. Due to persistent and worsening overactive bladder I feel she may benefit from the stimulator and encourage her to discuss this with [facility]. Apr, Elevated C-reactive protein (CRP) (ICD-10 - R79.82) Blood work was collected through [facility] , discussion was had CRP was likely elevated due to inflammation of the knee. Apr, Neoplasm of uncertain behavior of skin (ICD-10 - D48.5) Apr, Increased appetite (ICD-10 - R63.2) The patient advised I will order a leptin level although I am in sure of the cost. The patient would benefit from weight loss, she has tried Adipex earlier this year that caused elevated blood pressure. I did provide information regarding alternative weight loss medications such as Plenity. Apr, Anemia, unspecified type (ICD-10 - D64.9) Anemia has progressively improved over the last several blood work results. We will continue to monitor. Apr, Elevated liver enzymes (ICD-10 - R74.8) The patient does have hx of fatty liver disease, we will continue to monitor. 17u.cn Other [id number] Instructions* Patient Instructions* Dian Desai MD - 04/28/2022 12:14 PM EDT Images from the original note were not included. Overactive Bladder (OAB) [facility] [place] Thank you for seeing us today. You have urgency urinary incontinence or Overactive Bladder. The treatment options are as follows: - Dietary modification (avoid excessive caffeine intake, bladder irritants) - Pelvic floor physical therapy - Medical therapy (anticholinergic medication/beta 3 agonist medication) - Botox injection - Sacral neuromodulation (interstim) - PTNS (percutaneous Tibial Nerve Stimulation) You have urgency urinary incontinence or leakage of urine associated with the severe desire or urgeto urinate. This can often occur in the setting of needing to urgently use the restroom but not being able to make it in time. This type of urinary leakage is different than leakage associated with co ughing/sneezing/lifting objects. Leakage with coughing/sneezing/lifting objects is called stress urinary incontinence. In some patients the urgency incontinence and some stress incontinence both occur and this is called Mixed incontinence. Your doctor will advise you the best part of the incontinence to help start to treat. Urgency urinary incontinence is treated multiple different ways. The first step is behavioral modification. Caffeine intake and bladder irritants are known to be associated with increased urgency. Decreasing the amount of coffee/tea/soda consumption can help with urgency. The only treatment that can treat both urgency and stress urinary incontinence is pelvic floor physical therapy. Pelvic floor physical therapy is performed with a trained physical therapist who will teach you how to perform exercises to both decrease the urgency to urinate and also strengthen muscles to prevent urine from leaking. If this does not work, then another option for urgency urinary incontinence is anticholinergic medication. These medications need to be taken daily. The best effect is usually seen after a month of usage. The main side effect of anticholinergics is dry mouth and constipation. You may also have dry eyes, confusion and blood pressure changes associated with anticholinergics. Lastly, this class of medication is not used in patients with a specific type of glaucoma. A different type of medication that works on quieting the bladder are beta 3 agonists. This medication is relatively new and currently is while insurance coverage is improving, sometimes this can be a costly medication. Uncontrolledhigh blood pressure is a contraindication to using this medication. If physical therapy and medication do not work for your urgency, the next line of therapy involves one of three options: neuromodulation or Botox injections into the bladder. Neuromodulation can be performed using percutaneous tibial nerve stimulation (PTNS) or interstim. Third Line Options for Overactive Bladder (when medications do not work) PTNS is a twelve week procedure where you would come into the office once a week and for a 30 minute session have a very thin needle placed in the ankle to stimulate a nerve. Studies have shown this to be more successful than placebo in reducing urgency and urgency urinary incontinence. The benefitis that you can have improvement without surgery. The downside is that this can be time consuming in regards to coming once a week for 12 weeks for each session. If this works at helping your bladderat 12 weeks, then one needs to do a maintenance phase having the therapy repeated once a month, indefinitely. Interstim ([employer]) is a surgically implanted lead with electrodes attached to a battery generator that is used to modulate impulses from the sacral nerve roots. This acts as a bladder pacemaker to help with urgency and urgency urinary incontinence. One must do a bladder diary or voiding diary for 3 days in advance of having the surgery done to assure it can be submitted for insurance coverage. This surgery is typically done in two stages. The first stage is implantation of the lead next to the nerve root. This is done in the operating room under sedation without the need for breathing tubes in most patients. The lead is then connected to an outside wireless stimulator taped to your lowerback. A two week trial run is performed to ensure that you are getting an improvement with the device. If symptoms improve by 50% or greater, then stage II is performed where the battery generator isimplanted underneath the skin in the operating room. Currently the battery life is about 5 years and so this would need a revision during that time with a surgery to change the battery.The success rate for this therapy is over 80% in our practice. Another approach is the use of the PNE or percutaneous nerve evaluation. This entails an office placement of the lead (smaller and thinner) to give a temporary (5 day or so) trial of the therapy. If it helps at least 50%, one can proceed directly to formal implant (once) in the operating room. If it is not successful, then one can do a stage 1 approach as above in the operating room. Botox injection into the bladder is another treatment option for urinary urgency and urgency urinary incontinence. This is an outpatient procedure usually done in the office where a cystoscopy is performed and botulinum toxin is injected at multiple different spots into the bladder lining. It will take approximately ten to fifteen minutes to perform the actual procedure but with preparation may take close to an hour . The risks of the Botox injection include bleeding, infection, and urinary retention (emptying problems). Depending on the number of units (anywhere from 100 to 300 units) used for botox injection, the urinary retention risk is from 6-20%. If you are not willing or able to catheterize after the procedure then botox injection may not be an option for you. The effects of botox are temporary and usually last 6-9 months so it needs to be repeated roughly twice a year. Below is the algorithm developed and approved by the [place] [employer] and the Society for Urodynamics, Female Pelvic Medicine and Urogenital Reconstruction for the management of Overactive Bladder. [facility] urologists were instrumental in helping develop this. [place] [facility] [place] Appointment line: [phone] documented in this encounterOhio [facility]09-[facility] History and physical note * Dian Desai MD - 04/28/2022 10:52 AM EDT Images from the original note were not included. [facility] FEMALE PELVIC MEDICINE AND RECONSTRUCTIVE SURGERY NEW PATIENT CLINIC NOTE SERVICE DATE: 04/28/2022 SERVICE TIME: 10:52 AM NAME: Vijaya Tinsley REFERRED BY: Consultation requested by Dr. ROWAN for an opinion regarding OAB My final recommendations will be communicated back to the requesting physician by way of shared medical record or letter via US mail. CHIEF COMPLAINT: I have to pee a lot HPI : 26year old female with Ulisses, cerebral palsy, POTS here for OAB 06/2021: Saw urology for urinary frequency, urgency, urge incontinece. Trialed ditropan nad mirabegron and failed.On tropsium PVR: 54ml. 11/05/2021: OSH for dysuria, flank pain,, treated with keflex for UTI 11/2021: OSH UDS: low capacity 113ml, DO with leakage at low volume (36ml), compliant, high pressure/low flow with voiding but may be inaccurate because she only voided 60ml. but PVR: 50ml. 04/2022: today, reports frequency with voids q2-3hr, no nocturia (before 1x/n), ISMAEL=UUI (2 pad thick/d), some urgency. Trospium helped a bit but still bothersome sypmtoms. CTU(11/05/2021): no stones, HUN, PAST MEDICAL HISTORY No past medical history on file. PAST SURGICAL HISTORY No past surgical history on file. FAMILY HISTORY No family history on file. SOCIAL HISTORY Social History Tobacco Use Smoking status: Never Smokeless tobacco: Never MEDICATIONS: Current Outpatient Medications Medication Sig Cholecalciferol, Vitamin D3, 125 mcg (5,000 unit) cap TAKE 1 CAPSULE BY MOUTH EVERY DAY FOR 90 DAYS Trospium (SANCTURA SR) 60 mg cp24 Take 60 mg by mouth once daily. No current facility-administered medications for this visit. CURRENT ALLERGIES: Allergies As of Date: 04/28/2022 Allergen Noted Reaction GRASS POLLEN-BERMUDA, STANDARD 08/08/2008 Unknown AMOXICILLIN 01/15/2022 Diarrhea VANCOMYCIN 06/30/2019 Unknown CETIRIZINE 03/16/2013 Hives, Other: See Comments, and Rash Fully Assessed 04/28/2022 MEDICATIONS: Current Outpatient Medications on File Prior to Visit Medication Sig Cholecalciferol, Vitamin D3, 125 mcg (5,000 unit) cap TAKE 1 CAPSULE BY MOUTH EVERY DAY FOR 90 DAYS Trospium (SANCTURA SR) 60 mg cp24 Take 60 mg by mouth once daily. No current facility-administered medications on file prior to visit. PHYSICAL EXAM: General: AAOx3 HEENT: no acute respiratory distress. CYSTOMETRICS: no IMPRESSION & PLAN: ASSESSMENT/PLAN: 1. OAB (overactive bladder) - ICD9: 596.51, ICD10: N32.81 (primary diagnosis) -acute on chronic -has failed ditropan, trospium, mirabegron. Therefore, third line therapy was discussed with the patient including hte risks and benefits of each. At the end, she elects to consider SNM as she lives in [place], making serial botox injections difficult. She would like more time to consider, so handout given. She is to call to schedule appt. -will try vesicare in the meantime. 2. Neurogenic bladder - ICD9: 596.54, ICD10: N31.9 -chronic Discussed how her urinary symptoms can be related to cerebral palpsy. Compliance on UDS in 2020 is good. If symptoms do not improve despite 3rd line, will consider re-evaluation with UDS. All of the patients questions and concerns were discussed in detail. Dian Desai MD Associate Staff Female Pelvic Medicine and Reconstructive Surgery Electronically signed Medical Decision Making: Problems: Moderate: 1+ chronic illnesses with change Risk: Moderate: Decision on minor surgery w/ risk factors Medical Decision Making Level: 4 - Moderate documented in this encounterOhio [facility]22 Hospital Discharge instructions Patient Education 04/16/2022 20:37:01 Acute Knee Pain, Adult, Cyya-fk-Kfju Acute Knee Pain, Adult Many things can cause knee pain. Sometimes, knee pain is sudden (acute) and may be caused by damage, swelling, or irritation of the muscles and tissues that support your knee. The pain often goes away on its own with time and rest. If the pain does not go away, tests may be done to find out what is causing the pain. Follow these instructions at home: Pay attention to any changes in your symptoms. Take these actions to relieve your pain. If you have a knee sleeve or brace: Wear the sleeve or brace as told by your doctor. Remove it only as told by your doctor. Loosen the sleeve or brace if your toes: ?Tingle. ?Become numb. ?Turn cold and blue. Keep the sleeve or brace clean. If the sleeve or brace is not waterproof: ?Do not let it get wet. ?Cover it with a watertight covering when you take a bath or shower. Activity Rest your knee. Do not do things that cause pain. Avoid activities where both feet leave the ground at the same time (high-impact activities). Examples are running, jumping rope, and doing jumping jacks. Work with a physical therapist to make a safe exercise program, as told by your doctor. Managing pain, stiffness, and swelling If told, put ice on the knee: ?Put ice in a plastic bag. ?Place a towel between your skin and the bag. ?Leave the ice on for 20 minutes, 2 3 times a day. If told, put pressure (compression) on your injured knee to control swelling, give support, and help with discomfort. Compression may be done with an elastic bandage. General instructions Take all medicines only as told by your doctor. Raise (elevate) your knee while you are sitting or lying down. Make sure your knee is higher than your heart. Sleep with a pillow under your knee. Do not use any products that contain nicotine or tobacco. These include cigarettes, e-cigarettes, and chewing tobacco. These products may slow down healing. If you need help quitting, ask your doctor. If you are overweight, work with your doctor and a food expert (dietitian) to set goals to lose weight. Being overweight can make your knee hurt more. Keep all follow-up visits as told by your doctor. This is important. Contact a doctor if: The knee pain does not stop. The knee pain changes or gets worse. You have a fever along with knee pain. Your knee feels warm when you touch it. Your knee gives out or locks up. Get help right away if: Your knee swells, and the swelling gets worse. You cannot move your knee. You have very bad knee pain. Summary Many things can cause knee pain. The pain often goes away on its own with time and rest. Your doctor may do tests to find out the cause of the pain. Pay attention to any changes in your symptoms. Relieve your pain with rest, medicines, light activity, and use of ice. Get help right away if you cannot move your knee or your knee pain is very bad. This information is not intended to replace advice given to you by your health care provider. Make sure you discuss any questions you have with your health care provider. Document Released: 10/21/2009 Document Revised: 01/04/2019 Document Reviewed: 01/04/2019 [employer] Patient Education 2020 [employer]. Follow Up Care 04/16/2022 17:20:33 With:DIONNE CHAMBERS Address: [address] [place] [phone] [id number] (1) When:04/19/2022 20:24:45 Comments:You can use ibuprofen, Tylenol every 6 hours as needed for pain. Please follow-up with your orthopedic doctor for further evaluation and management. Please return to the ED for any new or worsening symptoms. [facility]09-09-2022 Evaluation + Plan noteExtracted from: Title:ED Note Author:Luca Botello DO Date:04/16 Knee pain (M25.569: Pain in unspecified knee) Orders: Basic Metabolic Panel C-Reactive Protein CBC w/ Auto Diff Sedimentation Rate Automated US LE Venous Duplex Right XR Knee Complete 4+ Views Right Addendum by Bonnie Shearer DO on April 16, 2022 20:25:50 EDT Patient signed out to me pending lower extremity duplex. Lower extremity duplex without any signs of DVT. Patient is given Tylenol for headache. She is discharged home to follow-up with her primary care doctor. [facility]09-06-2022 Evaluation note* Encounter Date Diagnosis Assessment Notes Treatment Notes Treatment Clinical Notes Apr, S/P right knee arthroscopy (ICD-10 - Z98.890) Patient is to continue to follow with Dr. Travis as scheduled. Apr, Fatty liver (ICD-10 - K76.0) Levels have improved upon review fo blood work results. Apr, Vitamin D deficiency (ICD-10 - E55.9) The patients vitamin D level has decreased from last check, I advised the patient to take vitamin D 5000u daily. We will recheck in six months. Apr, Hyperlipidemia (ICD-10 - E78.5) Blood work ordered for six months. [facility] Other 06-17-2022 Miscellaneous Notes* Telephone Encounter - Marguerite Hernandez - 01/22/2022 8:54 AM EDT Office note/letter faxed. * Telephone Encounter - Jossie Stoll MD - 01/22/2022 8:17 AM EDT note done and faxed Electronically Signed by Jossie Barone MD, MPH * Telephone Encounter - Jessica Leon - 01/21/2022 9:[address] Travis's ofc called. is seeing pt tomorrow and is asking for the ofc note to be faxed to him at [phone]. The note is unsigned. documented in this encounterOhio [facility]06-17-2022 Miscellaneous Notes* Telephone Encounter - Jossie Stoll MD - 01/22/2022 8:19 AM EDT I need the report of her knee XR and MRI (if that was also done). I don't have these in CareEverywhere. Is she able to send those to me? If she has the reports she can send a picture through [employer] or fax thanks Electronically Signed by Jossie Barone MD, MPH * Telephone Encounter - Jessiac Leon - 01/21/2022 2:48 PM EDT Patient called asking if you have decided what physicians she should see in both ortho and urology.According to pt, you were going to give her specific names of mds. She can be reached at [phone]. documented in this encounterOhio State [facility] Hospital06-10-2022 Instructions* Patient Instructions* Jossie Stoll MD - 01/15/2022 8:52 AM EDT - When your knee surgery is scheduled you should have blood culture checked before surgery documented in this encounterOhio [facility] Hospital06-10-2022 History of Present illness Narrative* Jossie Stoll MD - 01/15/2022 7:59 AM EDT Vijaya Tinsley is a 26 year old female. Consultation was requested by Dr. Travis for an opinion regarding positive KARLIE; my final assessment and recommendations will be communicated back to the requesting physician by way of shared medical record, or by letter via fax or US mail. Evaluation Date: 01/15/2022 Chief Complaint: abhnormal lab test HPI: History was obtained from the patient and from outside records. Vijaya Tinsley dates her history back to November 2021 when she became ill with chills, fever and no appetite, . She went to the ER and was given an antibiotic for UTI. 5 days later she was called to go back to the ER because of a positive blood culture. She was hospitalized for 4 days for IV antibiotics. Her symptoms resolved butshe continued to feel weak. Appetite is normal, she feels well. Her PCP ordered labs after discharge and she had a positive KARLIE: 1:160, homogeneus She was seen by her ortho in f/u for the right knee injury, he saw the positive KARLIE and referred her to rheumatology After hospital discharge she had a dry cough for about one month - getting better over the past week Covid pfizer booster in Aug 2021 - she was sick for about 3-4 days ROS GENERAL: fatigue FEVER: none WEIGHT CHANGE: none HEAD: negative for, headache ENT: negative for, sore throat, difficulty swallowing, mouth lesions EYES: negative for , pain, redness, visual blurring NECK: negative for, mass, pain, swelling RESPIRATORY: negative for, cough, sputum production, hemoptysis, shortness of breath, pleuritic chest pain CARDIOVASCULAR: negative for, chest pain, Raynaud's GASTROINTESTINAL: negative for, abdominal pain, vomiting, diarrhea URINARY: negative for, hematuria TESTICULAR/COMPETITIVE INTELLIGENCE MANAGER: negative for, pain, swelling, genital lesions or nodules MUSCULOSKELETAL: negative for, joint pain , joint swelling SKIN: negative for, rash PAST MEDICAL HISTORY: cerebral palsy asthma POTS Fatty liver PAST SURGICAL HISTORY: left ankle CURRENT MEDICATIONS: Current Outpatient Medications Medication Sig Cholecalciferol, Vitamin D3, 125 mcg (5,000 unit) cap TAKE 1 CAPSULE BY MOUTH EVERY DAY FOR 90 DAYS Trospium (SANCTURA SR) 60 mg cp24 Take 60 mg by mouth once daily. No current facility-administered medications for this visit. ALLERGIES: Grass Pollen-[place], Standard; Amoxicillin; Vancomycin; and Cetirizine SOCIAL HISTORY: Social History Tobacco Use Smoking status: Never Smoker Smokeless tobacco: Never Used Substance Use Topics Alcohol use: No Drug use: No FAMILY HISTORY: mother : POTS no family history of lupus PHYSICAL EXAMINATION BP 114/60 Pulse 97 Temp 36.4 C (97.5 F) (Temporal) Ht 157.5 cm (5' 2 ) Wt 98.4 kg (217 lb) BMI 39.69 kg/m GENERAL APPEARANCE: well SKIN: normal without rashes or lesions HEAD: normal; temporal arteries with normal pulsation without nodularity or tenderness EYES: conjunctiva clear, PERRL, EOM normal EARS: External ears normal, TM's normal NOSE/SINUSES: normal OROPHARYNX: no oral lesions present, no oral ulcers. NECK: supple, without adenopathy. LUNGS: clear HEART: RRR, no gallops, rubs or murmurs ABDOMEN: soft, non-tender, normal BS MUSCULOSKELETAL: no joint tenderness or swelling VASCULAR EXAM Carotid: normal and equal bilaterally Brachial: normal and equal bilaterally Radial: normal and equal bilaterally Bruit over large vessels: negative ASSESSMENT: Vijaya Tinsley is a 26 year old female with a history of recent infection with positive blood culture and a that time, a positive KARLIE. Not entirely clear to me why the KARLIE was ordered as she did nothave any symptoms or signs to suggest lupus or any other autoimmune systemic inflammatory disease that could be associated with a positive KARLIE. A positive KARLIE can be associated with infections as well. After her evaluation today, I also don't find any symptoms or signs to suggest a systemic lupus or other systemic inflammatory rheumatic disorder. Assessment and plan were discussed with the patient. PLAN: she would like a referral for knee ortho for a second opinion regarding need for surgery she would also like a referral to urology for the bladder disorder causing infections no indication for immunosuppressive therapy at this time Orders: none Monitoring: symptoms and labs Patient instructed to notify provider of any changes in medical condition. Follow-up: as needed I spent a total of 60 minutes on the date of the service which included preparing to see the patient, [id number] patient care, completing clinical documentation, obtaining and/or reviewing separately obtained history, performing a medically appropriate examination, counseling and educating the pat ient/family/caregiver, ordering medications, tests, or procedures and communicating with other HCPs(not separately reported). Jossie Barone MD, MPH documented in this encounterOhio [facility]06-07-2022 Evaluation note* Encounter Date Diagnosis Assessment Notes Treatment Notes Treatment Clinical Notes Jan, Cough (ICD-10 - R05.9) [facility] Other 06-02-2022 Evaluation note* Encounter Date Diagnosis Assessment Notes Treatment Notes Treatment Clinical Notes Jan, Cough (ICD-10 - R05.9) Patient describes feeling tightness prior to the urge to cough. She did have a portable chest x-ray 11/2021 at [facility]. She states the cough is slowly improving but has been ongoing since she was in the hospital in November. She denies noticing any wheezing and states she does not notice any She does have a history of Asthma and remembers having a PFT years ago in [place] when she was a child. I did recommend she consult with a Foreclosure Paralegal and I will order the PFT, updated Chest X-ray, and IgE to obtain prior to seeing a Foreclosure Paralegal. She is in agreement. Referral initiated to pulmonology. Jan, Right knee pain, unspecified chronicity (ICD-10 - M25.561) The patient's surgery has been placed on hold until the cause of her cough is determined. Jan, Positive KARLIE (antinuclear antibody) (ICD-10 - R76.8) Encouraged the patient to call and get set up with a Measurement Supervisor [facility]. She will do that today as Dr. Travis has referred her. Jan, Increased appetite (ICD-10 - R63.2) Patient admits not feeling full after eating. We will check her thyroid levels in the blood work. Encouraged to only get one plate full and monitor portions. Jan, Hyperlipidemia (ICD-10 - E78.5) Blood work ordered. [facility] Other 04-22-2022 Evaluation note* Encounter Date Diagnosis Assessment Notes Treatment Notes Treatment Clinical Notes Nov, Vitamin D deficiency (ICD-10 - E55.9) [facility] Other 04-20-2022 Hospital Discharge instructions Patient Education 11/25/2021 11:55:40 Urinary Tract Infection, Adult Urinary Tract Infection, Adult A urinary tract infection (UTI) is an infection of any part of the urinary tract. The urinary tractincludes the kidneys, ureters, bladder, and urethra. These organs make, store, and get rid of urinein the body. Your health care provider may use other names to describe the infection. An upper UTI affects the ureters and kidneys (pyelonephritis). A lower UTI affects the bladder (cystitis) and urethra (urethritis). What are the causes? Most urinary tract infections are caused by bacteria in your genital area, around the entrance to your urinary tract (urethra). These bacteria grow and cause inflammation of your urinary tract. What increases the risk? You are more likely to develop this condition if: You have a urinary catheter that stays in place (indwelling). You are not able to control when you urinate or have a bowel movement (you have incontinence). You are female and you: ?Use a spermicide or diaphragm for control. ?Have low estrogen levels. ?Are . You have certain genes that increase your risk (genetics). You are sexually active. You take antibiotic medicines. You have a condition that causes your flow of urine to slow down, such as: ?An enlarged prostate, if you are male. ?Blockage in your urethra (stricture). ?A kidney stone. ?A nerve condition that affects your bladder control (neurogenic bladder). ?Not getting enough to drink, or not urinating often. You have certain medical conditions, such as: ?Diabetes. ?A weak disease-fighting system (immunesystem). ?Sickle cell disease. ?Gout. ?Spinal cord injury. What are the signs or symptoms? Symptoms of this condition include: Needing to urinate right away (urgently). Frequent urination or passing small amounts of urine frequently. Pain or burning with urination. Blood in the urine. Urine that smells bad or unusual. Trouble urinating. Cloudy urine. Vaginal discharge, if you are female. Pain in the abdomen or the lower back. You may also have: Vomiting or a decreased appetite. Confusion. Irritability or tiredness. A fever. Diarrhea. The first symptom in older adults may be confusion. In some cases, they may not have any symptoms until the infection has worsened. How is this diagnosed? This condition is diagnosed based on your medical history and a physical exam. You may also have other tests, including: Urine tests. Blood tests. Tests for sexually transmitted infections (STIs). If you have had more than one UTI, a cystoscopy or imaging studies may be done to determine the cause of the infections. How is this treated? Treatment for this condition includes: Antibiotic medicine. Vauo-lhw-bbmdnya medicines to treat discomfort. Drinking enough water to stay hydrated. If you have frequent infections or have other conditions such as a kidney stone, you may need to see a health care provider who specializes in the urinary tract (urologist). In rare cases, urinary tract infections can cause sepsis. Sepsis is a life- threatening condition that occurs when the body responds to an infection. Sepsis is treated in the hospital with IV antibiotics, fluids, and other medicines. Follow these instructions at home: Medicines Take [id number] and prescription medicines only as told by your health care provider. If you were prescribed an antibiotic medicine, take it as told by your health care provider. Do notstop using the antibiotic even if you start to feel better. General instructions Make sure you: ?Empty your bladder often and completely. Do not hold urine for long periods of time. ?Empty your bladder after sex. ?Wipe from front to back after a bowel movement if you are female. Use each tissue one time when you wipe. Drink enough fluid to keep your urine pale yellow. Keep all follow-up visits as told by your health care provider. This is important. Contact a health care provider if: Your symptoms do not get better after 1 2 days. Your symptoms go away and then return. Get help right away if you have: Severe pain in your back or your lower abdomen. A fever. Nausea or vomiting. Summary A urinary tract infection (UTI) is an infection of any part of the urinary tract, which includes the kidneys, ureters, bladder, and urethra. Most urinary tract infections are caused by bacteria in your genital area, around the entrance to your urinary tract (urethra). Treatment for this condition often includes antibiotic medicines. If you were prescribed an antibiotic medicine, take it as told by your health care provider. Do notstop using the antibiotic even if you start to feel better. Keep all follow-up visits as told by your health care provider. This is important. This information is not intended to replace advice given to you by your health care provider. Make sure you discuss any questions you have with your health care provider. Document Released: 05/04/2006 Document Revised: 07/12/2019 Document Reviewed: 02/01/2019 [employer] Patient Education 2019 [employer]. Follow Up Care 11/16/2021 10:50:56 With:Liam DÍAZ, ZANDER Kim, URO Address: When: only if needed [facility] [employer] 01-31-2022 Evaluation note* Encounter Date Diagnosis Assessment Notes Treatment Notes Treatment Clinical Notes Aug, Facial rash (ICD-10 - R21) I recommend she apply OTC Hydrocortisone cream 1% to the mild facial rash located on the right side of the face. Instructions provided, the patient voices understanding. Aug, Itch of right eye (ICD-10 - H57.89) Right eye itch onset this am. The patient denies any visual changes, snellen chart reviewed with no abnormalites.No foreign bodies visualized , she does have some erythemea in the right eye. The above medication and instructions provided. [employer] Other 11-29-2021 Note [id number] 06-29-2021 Evaluation note* Encounter Date Diagnosis Assessment Notes Treatment Notes Treatment Clinical Notes Jun, Suprapatellar effusion of knee (ICD-10 - M25.469) Jun, Tear of lateral meniscus of right knee, unspecified tear type, unspecified whether old or current tear, initial encounter (ICD-10 - S83.281A) MRI of the right knee reveiwed with the patient . Small lateral and anteriror horn tear may be present The patient is following with orthopedic and recieved a cortisone injection 06/26/21 and advised to follow up in August. The patient states she can walk to a certain extent but continues to have significant pain with extension. The patient encouraged to follow up with ortho as scheduled. Jun, BMI 39.0-39.9,adult (ICD-10 - Z68.39) The patient appear to be tolerating a half tablet of Adipex well , I suggest she increase to a full tablet if tolerated. I strongly encourage she stay active and try to burn calories. [employer] Other 11-09-2021 Evaluation note* Encounter Date Diagnosis Assessment Notes Treatment Notes Treatment Clinical Notes Jun, BMI 39.0-39.9,adult (ICD-10 - Z68.39) [employer] Other 11-08-2021 Evaluation note* Encounter Date Diagnosis Assessment Notes Treatment Notes Treatment Clinical Notes Jun, BMI 39.0-39.9,adult (ICD-10 - Z68.39) An EKG was performed 05/12/21. I am in agreement the patient start the above medication . The rules and regulations, positive and negative side effects of Adipex reviewed with the patient. I recommend she take only a half tablet due to autoimmune disease. I advise she stop the medication if she expericences any negative side effects. Encouraged to watch diet and increase exercise regimen; we will continue to monitor. Jun, Bladder instability (ICD-10 - N32.89) I am in agreement the patient stop Oxybutynin due to side effects of lightheadedness. 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 Jun, Right knee pain (ICD-10 - M25.561) The patient has a history of torn ACL while in high school with no surgery intervention. X-ray imaging reviewed with the patient with no effusion or bony abnormalites, mild soft tissure swelling noted. The patient complains she has not been able to walk for a month as she is not able to fully extend or apply pressure . An MRI was ordered and scheduled for 06/22/21 that per patient she will have to re-schedule. We will continue to monitor. [employer] Other 11-01-2021 Evaluation note* Encounter Date Diagnosis Assessment Notes Treatment Notes Treatment Clinical Notes Jun, Acute pain of right knee (ICD-10 - M25.561) [employer] Other 10-08-2021 Evaluation note* Encounter Date Diagnosis Assessment Notes Treatment Notes Treatment Clinical Notes May, Frequent UTI (ICD-10 - N39.0) [employer] Other 10-05-2021 Evaluation note* Encounter Date Diagnosis Assessment Notes Treatment Notes Treatment Clinical Notes May, Frequent UTI (ICD-10 - N39.0) Patient does report having a UTI and fever recently and feels she has one again. She was prescribed medication and stopped that due to her feeling like it was increasing her blood pressure. She does voice interest in being seen by urology. I am in agreement. Referral initiated. We will continue to monitor. 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 She would like to determine whether she is truly allergic. I am in agreement. Referral initiated. We will continue to monitor. May, Wrist pain, right (ICD-10 - M25.531) Upon discussion with patient, she does have wrist pain that has been ongoing for the past two years. She does feel she may have nerve damage. I did suggest an EMG but she does have a significant fear of needles therefore I did advise her that I will look into getting her set up for an electroneurometer . Blood work ordered. We will continue to monitor. May, Tachycardia (ICD-10 - R00.0) Patient reports having tachycardic readings during her recent hospitalization. I advised her since she did have a fever at that time, this could likely have increased her hear rate slightly. Her heart is regular upon auscultation, though I did recommend an EKG to obtain a baseline. I did advise her this was normal for her age. We will continue to monitor. May, Hyperlipidemia (ICD-10 - E78.5) Blood work ordered. May, Hypothyroid (ICD-10 - E03.9) Blood work ordered. May, Fatigue (ICD-10 - R53.83) Blood work ordered to update. [employer] Other 11-01-2019 History general Narrative - Reported* Type Description Date Medical History cerebral palsy Medical History POTS Medical History Asthma Medical History two torn tendons of right knee Medical History spine fracture Medical History 06/2019 Left ankle infection Medical History Infection of joint of ankle Surgical History Left ankle infection 06/2019 [employer] Other 11-01-2019 History general Narrative - Reported* Type Description Date Medical History cerebral palsy Medical History POTS Medical History Asthma Medical History two torn tendons of right knee Medical History spine fracture Medical History 06/2019 Left ankle infection Medical History Infection of joint of ankle Surgical History Left ankle infection 06/2019 Surgical History Right knee arthoscopy 03/2022 [employer] Other 11-01-2019 History general Narrative - Reported* Type Description Date Medical History cerebral palsy Medical History POTS Medical History Asthma Medical History two torn tendons of right knee Medical History spine fracture Medical History 06/2019 Left ankle infection Medical History Infection of joint of ankle Surgical History Left ankle infection 06/2019 Surgical History Right knee arthoscopy 03/2022 Surgical History Back stimulator implant. Dr. Carmencita joseph 06/14/2022 and [employer] Other evaluation + Plan note Future Appointments Appointment Date:11/30/2021 01:45:00 PM Scheduled Provider:Liam DÍAZ, Fatuma Hernandez Location:[facility] Appointment Type:URO Office Visit [facility] evaluation note* Diagnosis Positive KARLIE (antinuclear antibody)- Primary Other and unspecified nonspecific immunological findings documented in this encounter [facility] noteNo [employer] Other evalulaelj note* Diagnosis OAB (overactive bladder)- Primary Hypertonicity of bladder Neurogenic bladder Neurogenic bladder, NOS documented in this encounter [facility] noteNo assessment information [facility] Work Phone: Evaluation note* Diagnosis Screening for genitourinary condition Screening for other and unspecified genitourinary condition documented in this encounter [facility] note* Diagnosis OAB (overactive bladder)- Primary Hypertonicity of bladder Right knee pain, unspecified chronicity- Primary documented in this encounter [facility] note* Diagnosis Urinary frequency- Primary Urinary frequency Urinary frequency [facility] Diagnosis Pre-op evaluation- Primary Preoperative examination, unspecified Dysuria Diplegic cerebral palsy (HCC) Congenital diplegia Mild intermittent asthma, unspecified whether complicated Class 3 severe obesity without serious comorbidity with body mass index (BMI) of 40.0 to 44.9 in adult, unspecified obesity type (HCC) Urinary frequency Urinary frequency [facility] Diagnosis Urinary frequency- Primary [facility] Diagnosis OAB (overactive bladder)- Primary Hypertonicity of bladder [facility] Diagnosis OAB (overactive bladder)- Primary Hypertonicity of bladder [facility] Diagnosis OAB (overactive bladder)- Primary Hypertonicity of bladder Obesity, Class III, BMI 40-49.9 (morbid obesity) (HCC) Morbid obesity Moderate protein-calorie malnutrition (HCC) Malnutrition of moderate degree [facility]* Diagnosis Screening for genitourinary condition Screening for other and unspecified genitourinary condition [facility] Diagnosis OAB (overactive bladder)- Primary Hypertonicity of bladder [facility] Diagnosis Urge incontinence- Primary [facility] Diagnosis Malaise and fatigue- Primary Other malaise and fatigue 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 [facility] Diagnosis Trigeminal neuralgia- Primary [facility] Diagnosis Trigeminal neuralgia [facility] Diagnosis Decreased libido- Primary [facility] Diagnosis Atypical facial pain- Primary Atypical face pain Left-sided face pain Headache [facility] Diagnosis Pre-op evaluation- Primary Preoperative examination, unspecified Dysuria Diplegic cerebral palsy (HCC) Congenital diplegia Mild intermittent asthma, unspecified whether complicated Class 3 severe obesity without serious comorbidity with body mass index (BMI) of 40.0 to 44.9 in adult, unspecified obesity type (HCC) Urinary frequency [facility] Diagnosis Right knee pain, unspecified chronicity Pre-op evaluation- Primary Preoperative examination, unspecified Dysuria Diplegic cerebral palsy (HCC) Congenital diplegia Mild intermittent asthma, unspecified whether complicated Class 3 severe obesity without serious comorbidity with body mass index (BMI) of 40.0 to 44.9 in adult, unspecified obesity type (HCC) [facility] Diagnosis Internal derangement of right knee- Primary Acute pain of right knee [facility] Diagnosis Chondromalacia of right patella- Primary Acute pain of right knee [facility]* Diagnosis Pre-op evaluation- Primary Preoperative examination, unspecified Dysuria Diplegic cerebral palsy (HCC) Congenital diplegia Mild intermittent asthma, unspecified whether complicated Class 3 severe obesity without serious comorbidity with body mass index (BMI) of 40.0 to 44.9 in adult, unspecified obesity type (HCC) Damián's disease- Primary Chronic lymphocytic thyroiditis Malaise and fatigue Other malaise and fatigue Abnormal weight gain BMI 45.0-49.9, adult (HCC) Body Mass Index 45.0-49.9, adult [facility]* Diagnosis Pre-op evaluation- Primary Preoperative examination, unspecified Dysuria Diplegic cerebral palsy (HCC) Congenital diplegia Mild intermittent asthma, unspecified whether complicated Class 3 severe obesity without serious comorbidity with body mass index (BMI) of 40.0 to 44.9 in adult, unspecified obesity type (HCC) Urge incontinence [facility]* Diagnosis Pre-op evaluation- Primary Preoperative examination, unspecified Dysuria Diplegic cerebral palsy (HCC) Congenital diplegia Mild intermittent asthma, unspecified whether complicated Class 3 severe obesity without serious comorbidity with body mass index (BMI) of 40.0 to 44.9 in adult, unspecified obesity type (HCC) Urge incontinence [facility]* Diagnosis Pre-op examination- Primary [facility]* Diagnosis Chondromalacia of right patella- Primary [facility] Diagnosis Pre-op evaluation- Primary Preoperative examination, unspecified Dysuria Diplegic cerebral palsy (HCC) Congenital diplegia Mild intermittent asthma, unspecified whether complicated (HCC) Class 3 severe obesity without serious comorbidity with body mass index (BMI) of 40.0 to 44.9 in adult, unspecified obesity type OAB (overactive bladder)- Primary Hypertonicity of bladder Acute cystitis without hematuria Acute cystitis Stress incontinence of urine Overactive bladder Hypertonicity of bladder Urinary frequency [facility]* Diagnosis Pre-op evaluation- Primary Preoperative examination, unspecified Dysuria Diplegic cerebral palsy (HCC) Congenital diplegia Mild intermittent asthma, unspecified whether complicated (HCC) Class 3 severe obesity without serious comorbidity with body mass index (BMI) of 40.0 to 44.9 in adult, unspecified obesity type Overactive bladder- Primary Hypertonicity of bladder Urinary frequency Overactive bladder Hypertonicity of bladder Urinary frequency [facility]* Diagnosis S/P right knee arthroscopy- Primary documented [facility]* Diagnosis Pre-op exam- Primary documented in this encounter [facility]* Diagnosis Pre-op evaluation- Primary Preoperative examination, unspecified Dysuria Diplegic cerebral palsy (HCC) Congenital diplegia Mild intermittent asthma, unspecified whether complicated (HCC) Class 3 severe obesity without serious comorbidity with body mass index (BMI) of 40.0 to 44.9 in adult, unspecified obesity type Pre-op evaluation- Primary Preoperative examination, unspecified PONV (postoperative nausea and vomiting) Nausea with vomiting Mild intermittent asthma, unspecified whether complicated (HCC) Obesity, Class III, BMI >= 40 Morbid obesity Neurogenic bladder Neurogenic bladder, NOS Diplegic cerebral palsy (HCC) Congenital diplegia Overactive bladder Hypertonicity of bladder Urinary frequency * Assessment & Plan Note - Nessa Jenkins APRN.CNP - 12/11/2024 2:27 PM EDTAssociated Problem(s): Diplegic cerebral palsy (HCC) Assessment: Following with Neurology Ambulates in wheelchair, states she can stand and pivot * Assessment & Plan Note - Nessa Jenkins APRN.CNP - 12/11/2024 2:21 PM EDTAssociated Problem(s): Neurogenic bladder Assessment: with Bladder Stimulator in place * Assessment & Plan Note - Nessa Jenkins APRN.CNP - 12/11/2024 2:20 PM EDTAssociated Problem(s): Obesity, Class III, BMI >= 40 Assessment: Body mass index is 46.64 kg/m . * Assessment & Plan Note - Nessa Jenkins APRN.CNP - 12/11/2024 2:16 PM EDTAssociated Problem(s): Asthma (HCC) Assessment: childhood No inhaler use Lungs clear today * Assessment & Plan Note - Nessa Jenkins APRN.CNP - 12/11/2024 2:13 PM EDTAssociated Problem(s): PONV (postoperative nausea and vomiting) Assessment: states gets PONV with Anesthesia [facility] Diagnosis Difficulty walking- Primary Difficulty in walking Acute postoperative pain of right knee documented in this encounter [facility]* Author Flora Nixon [facility] Authored December 17, 2024 3:03p m Sooner if needed, ER if conc erns. The above note written by Flora Nixon LPN, acting as human recorder, note dictated by Dr. Dionne Chambers. [facility] Work Phone: Evaluation note* Diagnosis Pre-op evaluation- Primary Preoperative examination, unspecified Dysuria Diplegic cerebral palsy (HCC) Congenital diplegia Mild intermittent asthma, unspecified whether complicated (HCC) Class 3 severe obesity without serious comorbidity with body mass index (BMI) of 40.0 to 44.9 in adult, unspecified obesity type Pre-op evaluation- Primary Preoperative examination, unspecified PONV (postoperative nausea and vomiting) Nausea with vomiting Mild intermittent asthma, unspecified whether complicated (HCC) Obesity, Class III, BMI >= 40 Morbid obesity Neurogenic bladder Neurogenic bladder, NOS 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 Chronic lymphocytic thyroiditis Malaise and fatigue Other malaise and fatigue Abnormal weight gain BMI 45.0-49.9, adult (HCC) Body Mass Index 45.0-49.9, adult [facility]* Diagnosis Pre-op evaluation- Primary Preoperative examination, unspecified Dysuria Diplegic cerebral palsy (HCC) Congenital diplegia Mild intermittent asthma, unspecified whether complicated (HCC) Class 3 severe obesity without serious comorbidity with body mass index (BMI) of 40.0 to 44.9 in adult, unspecified obesity type Pre-op evaluation- Primary Preoperative examination, unspecified PONV (postoperative nausea and vomiting) Nausea with vomiting Mild intermittent asthma, unspecified whether complicated (HCC) Obesity, Class III, BMI >= 40 Morbid obesity Neurogenic bladder Neurogenic bladder, NOS Diplegic cerebral palsy (HCC) Congenital diplegia Overactive bladder- Primary Hypertonicity of bladder [facility]* Diagnosis S/P right knee arthroscopy- Primary [facility] Diagnosis Difficulty walking- Primary Difficulty in walking Acute postoperative pain of right knee documented in this encounter [facility]* Diagnosis Difficulty walking- Primary Difficulty in walking Acute postoperative pain of right knee documented in this encounter [facility]* Diagnosis Pre-op evaluation- Primary Preoperative examination, unspecified Dysuria Diplegic cerebral palsy (HCC) Congenital diplegia Mild intermittent asthma, unspecified whether complicated (HCC) Class 3 severe obesity without serious comorbidity with body mass index (BMI) of 40.0 to 44.9 in adult, unspecified obesity type (HCC) Pre-op evaluation- Primary Preoperative examination, unspecified PONV (postoperative nausea and vomiting) Nausea with vomiting Mild intermittent asthma, unspecified whether complicated (HCC) Obesity, Class III, BMI >= 40 Morbid obesity Neurogenic bladder Neurogenic bladder, NOS Diplegic cerebral palsy (HCC) Congenital diplegia Staring episodes- Primary Diplegic cerebral palsy (HCC) Congenital diplegia Absence seizure (HCC) Generalized nonconvulsive epilepsy without mention of intractable epilepsy Facial pain Headache [facility] Diagnosis Difficulty walking- Primary Difficulty in walking Acute postoperative pain of right knee documented in this encounter [facility]* Diagnosis Difficulty walking- Primary Difficulty in walking Acute postoperative pain of right knee documented in this encounter [facility]* Diagnosis Difficulty walking- Primary Difficulty in walking Acute postoperative pain of right knee Difficulty walking- Primary Difficulty in walking Acute postoperative pain of right knee Difficulty walking- Primary Difficulty in walking Acute postoperative pain of right knee documented in this encounter [facility]* Diagnosis Difficulty walking- Primary Difficulty in walking Acute postoperative pain of right knee Difficulty walking- Primary Difficulty in walking Acute postoperative pain of right knee documented in this encounter [facility]* Diagnosis Difficulty walking- Primary Difficulty in walking Acute postoperative pain of right knee Difficulty walking- Primary Difficulty in walking Acute postoperative pain of right knee documented in this encounter [facility]* Diagnosis Pre-op evaluation- Primary Preoperative examination, unspecified Dysuria Diplegic cerebral palsy (HCC) Congenital diplegia Mild intermittent asthma, unspecified whether complicated (HCC) Class 3 severe obesity without serious comorbidity with body mass index (BMI) of 40.0 to 44.9 in adult, unspecified obesity type (HCC) Pre-op evaluation- Primary Preoperative examination, unspecified PONV (postoperative nausea and vomiting) Nausea with vomiting Mild intermittent asthma, unspecified whether complicated (HCC) Obesity, Class III, BMI >= 40 Morbid obesity Neurogenic bladder Neurogenic bladder, NOS Diplegic cerebral palsy (HCC) Congenital diplegia Urge incontinence- Primary Stress incontinence of urine [facility]* Diagnosis Pre-op evaluation- Primary Preoperative examination, unspecified Dysuria Diplegic cerebral palsy (HCC) Congenital diplegia Mild intermittent asthma, unspecified whether complicated (HCC) Class 3 severe obesity without serious comorbidity with body mass index (BMI) of 40.0 to 44.9 in adult, unspecified obesity type (HCC) Pre-op evaluation- Primary Preoperative examination, unspecified PONV (postoperative nausea and vomiting) Nausea with vomiting Mild intermittent asthma, unspecified whether complicated (HCC) Obesity, Class III, BMI >= 40 Morbid obesity Neurogenic bladder Neurogenic bladder, NOS Diplegic cerebral palsy (HCC) Congenital diplegia Seizure-like activity (HCC)- Primary Other convulsions documented in this encounter [facility] note* Diagnosis Pre-op evaluation- Primary Preoperative examination, unspecified Dysuria Diplegic cerebral palsy (HCC) Congenital diplegia Mild intermittent asthma, unspecified whether complicated (HCC) Class 3 severe obesity without serious comorbidity with body mass index (BMI) of 40.0 to 44.9 in adult, unspecified obesity type (HCC) Pre-op evaluation- Primary Preoperative examination, unspecified PONV (postoperative nausea and vomiting) Nausea with vomiting Mild intermittent asthma, unspecified whether complicated (HCC) Obesity, Class III, BMI >= 40 Morbid obesity Neurogenic bladder Neurogenic bladder, NOS Diplegic cerebral palsy (HCC) Congenital diplegia OAB (overactive bladder)- Primary Hypertonicity of bladder documented in this encounter [facility] note* Diagnosis Pre-op evaluation- Primary Preoperative examination, unspecified Dysuria Diplegic cerebral palsy (HCC) Congenital diplegia Mild intermittent asthma, unspecified whether complicated (HCC) Class 3 severe obesity without serious comorbidity with body mass index (BMI) of 40.0 to 44.9 in adult, unspecified obesity type (HCC) Pre-op evaluation- Primary Preoperative examination, unspecified PONV (postoperative nausea and vomiting) Nausea with vomiting Mild intermittent asthma, unspecified whether complicated (HCC) Obesity, Class III, BMI >= 40 Morbid obesity Neurogenic bladder Neurogenic bladder, NOS Diplegic cerebral palsy (HCC) Congenital diplegia BMI 45.0-49.9, adult (HCC)- Primary Body Mass Index 45.0-49.9, adult documented in this encounter [facility] note* Author [facility] Authored May 07, 2025 1:12pm Madie Wilcox [facility] Work Phone: Hospital course Narrative No data available for this section [facility] Nataliia progress note No data available for this section [facility] Diagnostic Procedure Only (Routine) - Closed Specialty Diagnoses / Procedures Referred By Contac t Referred To Contact XR IMAGING Diagnoses Urinary frequency Procedures XR PELVIS 1V LATERAL RADIOLOGIC EXAMINATION PELVIS 1/2 VIEWS Dian Wiggins MD [address] [place] [address] Xr Imaging Referral ID Status Reason Start Date Expiration Date V isits Requested Visits Authorized [id number] Closed Auto-Generate d Referral 07/27/2022 08/26/2023 1 1 * Diagnostic Procedure Only (Routine) - Closed Specialty Diagnoses / Procedures Referred By Contac t Referred To Contact XR IMAGING Diagnoses Urinary frequency Procedures XR PELVIS 1V AP RADIOLOGIC EXAMINATION PELVIS 1/2 VIEWS Dian Wiggins MD [address] [place] [id number] Xr Imaging Referral ID Status Reason Start Date Expiration Date V isits Requested Visits Authorized [id number] Closed Auto-Generate d Referral 07/27/2022 08/26/2023 1 1 [facility] for referral (narrative)* Diagnostic Procedure Only (Routine) - Closed Specialty Diagnoses / Procedures Referred By Contac t Referred To Contact XR IMAGING Diagnoses Urinary frequency Procedures XR PELVIS 1V AP RADIOLOGIC EXAMINATION PELVIS 1/2 VIEWS Dian Wiggins MD [address] [place] [address] Xr Imaging [place] [address] Referral ID Status Reason Start Date Expiration Date V isits Requested Visits Authorized [id number] Closed Auto-Generate d Referral 07/27/2022 08/26/2023 1 1 [facility] for referral (narrative)* Diagnostic Procedure Only (Routine) - Closed Specialty Diagnoses / Procedures Referred By Contac t Referred To Contact XR IMAGING Diagnoses Right knee pain, unspecified chronicity Procedures XR KNEE LIMITED 2V AP/LAT RIGHT RADIOLOGIC EXAMINATION KNEE 1/2 VIEWS Chapo Mcknight MD [address] [place] [address] [place] [address] Referral ID Status Reason Start Date Expiration Date V isits Requested Visits Authorized [id number] Closed Auto-Generate d Referral 05/28/2022 06/27/2023 1 1 [facility] for referral (narrative)No reason for referral [facility] Work Phone: Reason for visit NarrativeRequesting referral to packing machine inspector. Bringing records from [employer] Other Reason for visit Narrative* Diagnostic Procedure Only (Routine) - Closed Specialty Diagnoses / Procedures Referred By Contac t Referred To Contact XR IMAGING Diagnoses Urinary frequency Procedures XR PELVIS 1V LATERAL RADIOLOGIC EXAMINATION PELVIS 1/2 VIEWS Dian Wiggins MD [address] [place] [address] Xr Imaging [facility] Referral ID Status Reason Start Date Expiration Date V isits Requested Visits Authorized [id number] Closed Auto-Generate d Referral 07/27/2022 08/26/2023 1 1 [facility] for visit Narrative* Diagnostic Procedure Only (Routine) - Closed Specialty Diagnoses / Procedures Referred By Contac t Referred To Contact XR IMAGING Diagnoses Right knee pain, unspecified chronicity Procedures XR KNEE GENERAL 4V AP BOTH/PA BOTH/LAT/MERC RIGHT RADIOLOGIC EXAM KNEE COMPLETE 4/MORE VIEWS Herrera Garcia PA-C [address] [place] [address] [place] [address] Referral ID Status Reason Start Date Expiration Date V isits Requested Visits Authorized [id number] Closed Auto-Generate d Referral 05/24/2022 06/20/2023 1 1 [facility] for visit Narrative* Rehabilitation - Outpatient (Routine) - Pending Review Specialty Diagnoses / Procedures Referred By Contac t Referred To Contact Physical Therapy Diagnoses Pre-op exam Procedures TX OFFICE/OUTPATIENT NEW HIGH MDM 60 MINUTES Jr. Hermilo Travis, [address] [facility] [address] [place] [address] Phone: tel: fax: Parker Queen, PT [address] [place] [address] Phone: tel: fax: Referral ID Status Reason Start Date Expiration Date Visits Requested Visits Authorized [id number] Pending Review Specialty Services Required 11/28/2024 05/27/2025 1 1 [facility] Rehabilitation - Outpatient (Routine) - Authorized Specialty Diagnoses / Procedures Referred By Contac t Referred To Contact Physical Therapy Diagnoses Pre-op exam Procedures TX OFFICE/OUTPATIENT NEW HIGH MDM 60 MINUTES Jr. Hermilo Travis, DO [address] [place] [address] Phone: tel: fax: Parker Queen, PT [address] [place] [address] Phone: tel: fax: Referral ID Status Reason Start Date Expiration Date Visits Requested Visits Authorized [id number] Authorized Specialty Services Required 11/28/2024 08/07/2025 99 99 [facility] HealthcareReason for visit Narrative* Rehabilitation - Outpatient (Routine) - Authorized Specialty Diagnoses / Procedures Referred By Contac t Referred To Contact Physical Therapy Diagnoses Pre-op exam Procedures TX OFFICE/OUTPATIENT NEW HIGH MDM 60 MINUTES Jr. Hremilo Travis, DO [address] [facility] [address] [place] [address] Phone: tel: fax: Leeanna Wiley, PT [address] [place] [address] Phone: tel: fax: Referral ID Status Reason Start Date Expiration Date Visits Requested Visits Authorized [id number] Authorized Specialty Services Required 11/28/2024 08/07/2025 99 99 [facility] Summary Purpose Family History Unknown Family Member Name Dates Details POTS (postural orthostatic t achycardia syndrome): Mother Status:Active Relationship Condition Age at Onset Recorded Date/T sejal Not Specified Malignant neoplasm of breast Unknown Diabetes mellitus Unknown Advance Directives Documents on File Type Date Recorded 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 * Pyelonephritis (Panamanian) documented in this encounter Assessments Diagnosis Acute pyelonephritis- Primary Acute pyelonephritis without lesion of renal medullary necrosis LLQ abdominal pain Abdominal pain, left lower quadrant Renal colic Reason for Referral Specialty Diagnoses / Procedures Referred By Contac t Referred To Contact Diagnoses Urge incontinence Olga Pryor PA-C [address] [place] [address] Referral ID Status Reason Start Date Expiration Date V isits Requested Visits Authorized [id number] Authorized 08/01/2024 08/07/2099 1 1 Specialty Diagnoses / Procedures Referred By Contac t Referred To Contact Diagnoses Damián's disease Malaise and fatigue Abnormal weight gain BMI 45.0-49.9, adult (HCC) Procedures ENDOCRINE MEDICAL WEIGHT MANAGEMENT OFFICE/OUTPATIENT [facility] 60 MINUTES Sylvia Brady MD [address] [place] [address] Referral ID Status Reason Start Date Expiration Date Visits Requested Visits Authorized [id number] Pending Review PCP Requested Referral 08/30/2024 08/30/2025 1 1 Specialty Diagnoses / Procedures Referred By Contac t Referred To Contact Diagnoses Damián's disease Malaise and fatigue Abnormal weight gain BMI 45.0-49.9, adult (HCC) Sylvia Brady MD [address] [facility] [address] Referral ID Status Reason Start Date Expiration Date V isits Requested Visits Authorized [id number] Pending Review 1 1 Specialty Diagnoses / Procedures Referred By Contac t Referred To Contact Diagnoses Decreased libido Procedures CONSULT TO MENOPAUSE [facility] MEDICAL APPOINTMENT Sylvia Brady MD [address] [place] [address] Referral ID Status Reason Start Date Expiration Date Visits Requested Visits Authorized [id number] Ref Not Required PCP Requested Referral 01/26/2024 01/25/2025 1 1 Specialty Diagnoses / Procedures Referred By Contac t Referred To Contact MR IMAGING Diagnoses Trigeminal neuralgia Procedures MRA BRAIN WO IVCON MRA, HEAD W/O CONTRAST Ruben Bolden MD [address] [place] [address] [place] [address] Referral ID Status Reason Start Date Expiration Date Visits Requested Visits Authorized [id number] Authorized Auto-Generat ed Referral OON/Self Pay Override 12/20/2023 01/18/2025 1 1 Specialty Diagnoses / Procedures Referred By Contac t Referred To Contact MR IMAGING Diagnoses Trigeminal neuralgia Procedures MRI BRAIN WO/W IVCON MRI BRAIN BRAIN STEM W/O W/CONTRAST MATERIAL Ruben Bolden MD [address] [place] [address] [place] [address] Referral ID Status Reason Start Date Expiration Date Visits Requested Visits Authorized [id number] Authorized Auto-Generat ed Referral OON/Self Pay Override 12/20/2023 01/18/2025 1 1 Reason Consult and Treat; s oonest available Persistent cough Diagnosis 1 Cough (R05.9) Referral Organization [facility] [place] Referring Provider First Name Dionne Referring Provider Last Name Patricia Referring Provider Specialty Family Prac toñito Referred Organization [facility] Referred Address [address] [place] [place], [place],[address] Referred Provider Specialty Pulmonary Di seases Referral Priority Routine General Notes Tracee Ash 2021 03:28:45 PM >please refer to [facility] Foreclosure Paralegal per patient request Reason frequent UTI's Diagnosis 1 Frequent UTI (N39.0) Referral Organization [facility] [place] Referring Provider First Name Dionne Referring Provider Last Name Patricia Referring Provider Specialty Family Prac toñito Referred Organization [facility] Referred Provider Dante Mendoza Referred Address [address] [facility] berenice [address],[place], [place],[address] Referred Provider Specialty Urology Referral Priority Routine General Notes Jessika Edwards 021 09:08:44 AM >Received today and waiting for office notes to be locked before sending referral Reason consult and ted at; possible nut allergy Diagnosis 1 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) Referral Organization [facility] Joshua Acosta Referring Provider First Name Dionne Referring Provider Last Name Patricia Referring Provider Specialty Family Prac toñito Referred Organization [facility] Referred Provider Jet Gramajo Referred Address ,[place], [place],[address] Referred Provider Specialty Allergy/Immu nology Referral Priority Routine General Notes Jessika Edwards 021 09:08:13 AM >Received today and waiting for office notes to be locked before sending referral Chief Complaint and Reason for Visit Chief Complaint Bilaeral lower extre mity lymphedema Chief Complaint C s/p r knee arthros copy lymphedema; ankles BLE lymphedema Chief Complaint G80.8 BLE lymphedema Chief Complaint r73.9 e78.5 r94.6 R10.11 r knee pain m79.661 Chief Complaint Discuss jaw problem/ neurological Per Dr. Chambers med check Reason for Visit Morbid obesity with BMI of 45.0-49.9, adult Neuralgic facial pain Hypothyroid Morbid obesity with BMI of 45.0-49.9, adult Neuralgic facial pain Status post knee surgery Chief Complaint Discuss jaw problem/ neurological Per Dr. Chambers E03.9 E88.81 E23.7 med check Reason for Visit Morbid obesity with BMI of 45.0-49.9, adult Neuralgic facial pain Hypothyroid Morbid obesity with BMI of 45.0-49.9, adult Neuralgic facial pain Status post knee surgery Chief Complaint Admit Date urinalysis December 07, 2024 9:14am Chief Complaint Admit Date urinalysis December 07, 2024 9:14am Unknown December 07, 2024 4:50pm Reason for Visit Admit Date UTI (urinary tract infection) December 07 9:14am Chief Complaint Admit Date urinalysis December 07, 2024 9:14am Unknown December 07, 2024 4:50pm Discuss zepbound shot December 17, 2024 2:0 6pm Reason for Visit Admit Date UTI (urinary tract infection) December 07, 025 9:14am Constipation December 17, 2024 2:06p m 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, 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 Insomnia December 17, 2024 2:06p m Morbid obesity with BMI of 45.0-49.9, ad ult December 17, 2024 2:06pm Obesity December 17, 2024 2:06p m Fatigue December 17, 2024 2:06p m Chief Complaint Admit Date 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 January 09, 2025 11:34 am Chief Complaint Admit Date urinalysis December 07, 2024 9:14am Unknown December 07, 2024 4:50pm Discuss zepbound shot December 17, 2024 2:0 6pm E27.9 January 07, 2025 8:20a m r63.5 February 11, 2025 7:13a m Chief Complaint Admit Date urinalysis December 07, 2024 9:14am Unknown December 07, 2024 4:50pm Discuss zepbound shot December 17, 2024 2:0 6pm E27.9 January 07, 2025 8:20a m r63.5 February 11, 2025 7:13a m ua- urine odor February 18, 2025 10:4 9am Reason for Visit Admit Date UTI (urinary tract infection) December 07, 025 9:14am Constipation December 17, 2024 2:06p m 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, 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 Insomnia December 17, 2024 2:06p m Morbid obesity with BMI of 45.0-49.9, ad ult December 17, 2024 2:06pm Obesity December 17, 2024 2:06p m Fatigue December 17, 2024 2:06p m Foul smelling urine February 18, 2025 10:4 9am Chief Complaint Admit Date urinalysis December 07, 2024 9:14am Unknown December 07, 2024 4:50pm Discuss zepbound shot December 17, 2024 2:0 6pm E27.9 January 07, 2025 8:20a m r63.5 February 11, 2025 7:13a m ua- urine odor February 18, 2025 10:4 9am n39.0 R31.9 February 18, 2025 11:1 2am Chief Complaint Admit Date r63.5 February 11, 2025 7:13a m ua- urine odor February 18, 2025 10:4 9am n39.0 R31.9 February 18, 2025 11:1 2am Amb Documentation May 06, 2025 2:50pm urine culture May 07, 2025 12:55pm Reason for Visit Admit Date Foul smelling urine February 18, 2025 10:4 9am Frequent UTI May 07, 2025 12:55pm Fatigue May 07, 2025 12:55pm Chief Complaint Admit Date ua- urine odor February 18, 2025 10:4 9am n39.0 R31.9 February 18, 2025 11:1 2am Amb Documentation May 06, 2025 2:50pm urine culture May 07, 2025 12:55pm Discuss surgery and new dx: epilepsy May 2:15pm Reason for Visit Admit Date Foul smelling urine February 18, 2025 10:4 9am Frequent UTI May 07, 2025 12:55pm Fatigue May 07, 2025 12:55pm Bladder instability May 13, 2025 2: 15pm Epilepsy May 13, 2025 2: 15pm Fatigue May 13, 2025 2: 15pm S/P arthroscopic knee surgery May 2:15pm Additional Source Comments INFORMATION SOURCE (unrecogn ized section and content) DATE CREATED AUTHOR 01/25/2018 [facility] DATE CREATED AUTHOR AUTHOR'S ORGANIZ ATION 09/26/2018 [facility] DATE CREATED AUTHOR AUTHOR'S ORGANIZ ATION 04/03/2019 [facility] DATE CREATED AUTHOR AUTHOR'S ORGANIZ ATION 06/30/2019 [facility] DATE CREATED AUTHOR AUTHOR'S ORGANIZ ATION 09/20/2019 [facility] DATE CREATED AUTHOR AUTHOR'S ORGANIZ ATION 08/31/2020 [facility] DATE CREATED AUTHOR AUTHOR'S ORGANIZ ATION 03/06/2022 [facility] DATE CREATED AUTHOR AUTHOR'S ORGANIZ ATION 03/10/2022 [facility] DATE CREATED AUTHOR AUTHOR'S ORGANIZ ATION 05/05/2022 [facility] DATE CREATED AUTHOR AUTHOR'S ORGANIZ ATION 06/13/2022 [facility] DATE CREATED AUTHOR AUTHOR'S ORGANIZ ATION 06/17/2022 [facility] DATE CREATED AUTHOR AUTHOR'S ORGANIZ ATION 07/14/2022 [facility] DATE CREATED AUTHOR AUTHOR'S ORGANIZ ATION 12/10/2024 [facility] DATE CREATED AUTHOR AUTHOR'S ORGANIZ ATION 12/13/2024 [facility] DATE CREATED AUTHOR AUTHOR'S ORGANIZ ATION 01/10/2025 [facility] DATE CREATED AUTHOR AUTHOR'S ORGANIZ ATION 02/22/2025 [facility] EPIC DATE CREATED AUTHOR AUTHOR'S ORGANIZ ATION 05/11/2025 [facility] DATE CREATED AUTHOR AUTHOR'S ORGANIZ ATION 05/12/2025 [facility] Reason for Visit (unrecogniz ed section and content) Reason Comments Follow Up Specialty Diagnoses / Procedures Referred By Contac t Referred To Contact Urology / UROLOGY Diagnoses Urinary urgency Interstim not working after surgery from 11/23 Urinary urgency and burning. Procedures OFFICE/OUTPATIENT ESTABLISHED HIGH MDM 40 MIN EST UROL Dian Wiggins MD [address] [place] [address] Phone: tel: Dian Wiggins MD [address] [place] [address] Phone: tel: fax: Referral ID Status Reason Start Date Expiration Date Visits Re quested Visits Authorized [id number] Closed 11/29/2024 08/07/2025 1 1 Specialty Diagnoses / Procedures Referred By Contac t Referred To Contact [facility] Diagnoses Frequent UTI Procedures PHYSICAL LIMITED Marcial, Giovanareagan [facility] [address] [facility] [address] [place] [address] [facility] [address] [id number] Referral ID Status Reason Start Date Expiration Date Visits Requested Visits Authorized [id number] Pending Review OON/Self Pay Override 09/06/2024 12/15/2025 1 1 Reason Comments Abdominal Pain Reason Comments Orders Reason Comments Patient Question Reason Comments Consult Reason Comments Pre-Op Visit Reason Comments Patient Question Her back is swollen and painful since her surgery Post Op Reason Comments Patient Update Post Op Reason Comments Patient Question Pt says her bandage on her back the top portion came completely off. Not sure what to do. Reason Comments Patient Question Stimulator not worki ng well, should she start her solisenacin again. Reason Comments Patient Question Can pt start on her cerebral palsy medication now? Her other question is her lead is not working at all since she fell. Reason Comments Patient Question Pt returning your ca ll Reason Comments Procedure Follow Up Reason Comments Patient Question Needs a refill pleas e Reason Comments Patient Question Question about kaur spivey a MRI with her medtronic back implant. Reason Onset Date Comments Refill Request 03/04/2023 Reason Comments Patient Question Pt wants an xray? Reason Comments Referral Request Reason Comments Follow Up Device Check Reason Comments Thyroid Problem Specialty Diagnoses / Procedures Referred By Chelsey buckley Referred To Contact Endocrinology / ENDOCRINOLOGY Diagnoses Damián's disease damián's Procedures OFFICE/OUTPATIENT NEW HIGH MDM 60 MINUTES OFFICE/OUTPATIENT ESTABLISHED HIGH MDM 40 MIN NEW [facility] Dionne Chambers P, DO [address] [place] [address] Sylvia Brady MD [address] [place] [address] Referral ID Status Reason Start Date Expiration Date V isits Requested Visits Authorized [id number] Authorized 08/08/2023 08/07/2024 99 99 Reason Comments New Patient Specialty Diagnoses / Procedures Referred By Chelsey buckley Referred To Contact Neurology / HEADACHE Diagnoses Facial neuralgia Facial Neuralgia left side Procedures OFFICE/OUTPATIENT NEW HIGH MDM 60 MINUTES OFFICE/OUTPATIENT NEW LOW MDM 30 MINUTES OFFICE/OUTPATIENT NEW SF MDM 15 MINUTES OFFICE/OUTPATIENT NEW MODERATE MDM 45 MINUTES NEW NEUR HEADACHE Self Ruben Bolden MD [address] [place] [address] Referral ID Status Reason Start Date Expiration Date Visits Re quested Visits Authorized [id number] Closed 12/13/2023 08/07/2024 1 1 Specialty Diagnoses / Procedures Referred By Chelsey buckley Referred To Contact MR IMAGING Diagnoses Trigeminal neuralgia Procedures MRI BRAIN WO/W IVCON MRI BRAIN BRAIN STEM W/O W/CONTRAST MATERIAL Ruben Bolden MD [address] [place] [address] Mr Imaging [place] [address] Referral ID Status Reason Start Date Expiration Date V isits Requested Visits Authorized [id number] Closed Auto-Generate d Referral OON/Self Pay Override 12/20/2023 01/18/2025 1 1 Reason Comments Outside Lab Results Reason Comments Results Reason Comments Trigeminal Neuralgia Reason Comments Follow-up Reason Comments Pain Reason Comments Thyroid Problem Reason Onset Date Comments Refill Request 08/30/2024 Reason Comments Medication Preauthorization Zepbound 2.5 mg Reason Comments Medication Preauthorization tirzepatide, weight loss (ZEPBOUND) 2.5 mg/0.5 mL pen injector Reason Comments Insurance Authorization Appeal letter ti rzepatide, weight loss (ZEPBOUND) 2.5 mg/0.5 mL pen injector Reason Comments Pre-op Exam Reason Onset Date Comments Traveling 11/20/2024 Reason Onset Date Comments Pain Med / UA 11/16/2024 Reason Onset Date Comments Results 11/27/2024 Reason Comments Preparations For Surgery PACC Reason Comments Post-op Reason Comments rule out damián thyroid disorder Specialty Diagnoses / Procedures Referred By Chelsey buckley Referred To Contact INTERNAL MEDICINE Diagnoses Damián's disease Malaise and fatigue Abnormal weight gain BMI 45.0-49.9, adult (HCC) Procedures ENDOCRINE MEDICAL WEIGHT MANAGEMENT OFFICE/OUTPATIENT [facility] 60 MINUTES Sylvia Brady MD [address] [place] [address] Phone: tel: fax: Gabriela Gao MD [address] [place] [address] Phone: tel: fax: Referral ID Status Reason Start Date Expiration Date V isits Requested Visits Authorized [id number] Closed PCP Requested Referral 11/05/2024 08/07/2025 1 1 Reason Comments Post Void Residual Reason Comments Face Pain Reason Comments Patient Question Orders Symptoms Appointment Reason Comments insulin resistnace Reason Comments Appointment Joana Yusuf, JOSE - 04/03/2019 6:40 AM Joana Cobian RN - 04/03/2019 6:26 AM Federico Pang DO - 04/03/2019 6:08 AM Agus Alvarez RN - 04/03/2019 4:19 AM EDT ED Notes (unrecognized secti on and content) Pt return form Ct scan. Pt to [facility] ED Resident Note: NAME: Vijaya Tinsley 23 y.o. CSN: [id number] PCP: Mohamud Cueto MD History: Chief Complaint: Abdominal Pain HPI: Vijaya Tinsley is a 23 y.o. female with PMH of kidney stone who presents with a chief complaint of Abdominal Pain. Patient presents as transfer from [facility] with complaint of LLQ abdominal pain, vomiting since 2229. Pain came on suddenly, LLQ, radiated to low back. Accompanied with vomiting x1. Pain is intermittent, lasts minute at a time, stabbing. Feels like previous kidney stones. Has never required surgical removal. Denies vaginal bleeding, vaginal discharge, hx of STDs. No fevers, chest pain, dyspnea. Feels like she is able to completely void. Received tylenol at [facility]. No abdominal surgeries. Patient denies tobacco use, denies alcohol use, denies recreational drug use (cocaine, marijuana, methamphetamine, heroin). PMHx: Past Medical History: Diagnosis Date Kidney stone PMSx: Past Surgical History: Procedure Laterality Date TONSILLECTOMY FAM. Hx: History reviewed. No pertinent family history. SOC. Hx: Social History Socioeconomic History Marital status: Single Spouse name: Not on file Number of children: Not on file Years of education: Not on file Highest education level: Not on file Occupational History Not on file Social Needs Financial resource strain: Not on file Food insecurity: Worry: Not on file Inability: Not on file Transportation needs: Medical: Not on file Non-medical: Not on file Tobacco Use Smoking status: Never Smoker Smokeless tobacco: Never Used Substance and Sexual Activity Alcohol use: Yes Comment: occasional Drug use: Never Sexual activity: Not on file Lifestyle Physical activity: Days per week: Not on file Minutes per session: Not on file Stress: Not on file Relationships Social connections: Talks on phone: Not on file Gets together: Not on file Attends islam service: Not on file Active member of club or organization: Not on file Attends meetings of clubs or organizations: Not on file Relationship status: Not on file Other Topics Concern Not on file Social History Narrative Not on file MEDs: No current outpatient medications on file prior to encounter. ALL: No Known Allergies ROS: Review of Systems Positives and pertinent negatives as per HPI. All other systems were reviewed and are negative. Physical Exam: Patient Vitals for the past 24 hrs: BP Temp Temp src Pulse Resp SpO2 Height Weight 04/03/19 0648 16 04/03/19 0626 133/88 62 16 100 % 04/03/19 0416 (!) 146/87 98.1 F (36.7 C) Oral (!) 58 16 100 % 6' 90.7 kg (200 lb) Physical Exam Constitutional: Patient appears well-developed and well-nourished. No distress. HEENT: Normocephalic and atraumatic. Oropharynx is clear and moist. Extraocular movements are normal. Neck supple. Cardiovascular: No murmurs, gallops or friction rubs to auscultation of heart. Peripheral pulses are 2+ and equal bilaterally. Capillary refill time is less than 2 seconds bilaterally. Pulmonary/Chest: Effort normal and breath sounds normal. No respiratory distress. No wheezes. Symmetric rise and fall of chest wall with inspiration. No peripheral cyanosis. Abdominal: Soft. No distension. No tenderness and no rebound, guarding or rigidity. Left CVA tenderness. Musculoskeletal: No edema. Neurological: Alert and oriented to person, place, and time. Moves all extremities spontaneously. Eyes open and pupils equal and reactive to light. Skin: Skin is warm and dry. No rash noted. No diaphoresis. Psychiatric: Normal mood and affect. Behavior is normal. Nursing note and vitals reviewed. Laboratory & Radiological Imaging (if done): Labs Reviewed BASIC METABOLIC PANEL - Abnormal; Notable for the following components: Result Value Glucose 114 (*) All other components within normal limits Narrative: The eGFR should be used for monitoring renal function only and not for medication dosing. URINALYSIS - Abnormal; Notable for the following components: Clarity, Urine Hazy (*) Specific [place] 1.026 (*) Protein, Urine 30 (*) Blood, Urine Large (*) Nitrite, Urine Positive (*) Leukocyte Esterase, Urine Moderate (*) WBCs, Urine 83 (*) RBCs, Urine 40 (*) Bacteria, Urine Rare (*) WBC Clumps, Urine Few (*) Calcium Oxalate Crystals Rare (*) All other components within normal limits Narrative: Microscopic examination is performed on all urinalysis samples and only positive findings are reported. The test for blood on the chemical analytic portion of urinalysis may also be positive due to hemoglobinuria and myoglobinuria and if red blood cells are present they are quantified by microscopic examination. CBC WITH AUTO DIFFERENTIAL - Abnormal; Notable for the following components: WBC 11.16 (*) Neutrophils Abs 7.98 (*) All other components within normal limits LIPASE - Normal HEPATIC FUNCTION PANEL - Normal POC , URINE - Normal URINE AEROBIC CULTURE CBC AND DIFFERENTIAL Narrative: The following orders were created for panel order CBC w/ Diff. Procedure Abnormality Status --------- ------ CBC Auto Differential[[id number]] Abnormal Final result Please view results for these tests on the individual orders. CT Kidney Stone Final Result 1. No urinary tract calculi. 2. No acute infective inflammatory process. 3. Hepatic steatosis. Workstation ID: [id number] Procedures: None ED Course/ Medications Given/ Medical Decision Making Evaluated for left lower quadrant abdominal pain in context of previous nephrolithiasis. Patient does have nitrite positive UTI. She was given Rocephin while here in the emergency department. CT scan shows no signs of nephrolithiasis or hydronephrosis. Her UA did show rare calcium oxalate and this may represent that she passed a stone. However this time, she does not have obstructive uropathy and she is tolerating p.o. intake and her pain is controlled. Do think that she is an appropriate candidate for outpatient trial of treatment for her pyelonephritis. She will be given urology follow-up as well as Keflex and return precautions were discussed. Patient discharged home with Zofran and pain medication. Medications ketorolac (TORADOL) injection 15 mg (15 mg Intravenous Given 04/03/19621) diphenhydrAMINE (BENADRYL) injection 25 mg (25 mg Intravenous Given 04/03/19620) ondansetron (ZOFRAN) injection 4 mg (4 mg Intravenous Given 04/03/19620) cefTRIAXone (ROCEPHIN) IVPB 1 g (premix) (0 mg Intravenous Stopped 04/03/19720) Clinical Impression: 1. Acute pyelonephritis 2. LLQ abdominal pain 3. Renal colic Disposition: Patient discharged home New Prescriptions ondansetron (ZOFRAN ODT) 4 MG disintegrating tablet Dissolve 1 (one) tablet (4 mg total) on top of tongue every 8 (eight) hours as needed for nausea . ibuprofen (ADVIL,MOTRIN) 400 MG tablet Take 1 (one) tablet (400 mg total) by mouth every 6 (six) hours as needed for pain . HYDROcodone-acetaminophen (NORCO) 5-325 mg per tablet Take 1 (one) tablet by mouth every 8 (eight) hours as needed for pain . cephALEXin (KEFLEX) 500 MG capsule Take 1 (one) capsule (500 mg total) by mouth 4 (four) times a day for 10 days . Federico Andrews DO ED Resident Physician [facility] Emergency Medicine Residency (Please note that portions of this note have been completed with a voice recognition software. Efforts were made to correct any errors, but occasionally words are mis-transcribed.) Federico Andrews DO Resident 04/03/19 0807 Patient ambulates to triage with complaint of LLQ abdominal pain. Patient states that she has had kidney stones in the past and this feels like one. Patient states that she was also at [facility] and was found to have a UTI. Patient describes the pain as sharp and 10/10, keeping her from falling asleep tonight. Patient also states that she has vomited x1 and has nausea. Patient denies fevers or other urinary symptoms. documented in this encounter ED Attestation Note - Ann Nunez MD - 04/03/2019 6:26 AM EDT Miscellaneous Notes (unrecog nized section and content) I personally saw, evaluated, and examined the patient. I reviewed and agreed with the resident's findings, including all diagnostic interpretations and treatment plans as documented. I was present during gill portions of separately performed procedures. Shared visit note: This very pleasant 23-year-old female complains of flank pain and hematuria. She has previous history of kidney stones. Patient will undergo CT of the abdomen pelvis. On examination, the patient has no peritoneal signs. documented in this encounter Source Comments (unrecognize d section and content) In the event this informatio n is protected by the Federal Confidentiality of Alcohol and Drug Abuse Patient Records regulations: The Federal rules restrict any use of the information to criminally investigate or prosecute any alcohol or drug abuse patient.[facility] the event this information is protected by the Federal Confidentiality of Alcohol and Drug Abuse Patient Records regulations: The Federal rules restrict any use of the information to criminally investigate or prosecute any alcohol or drug abuse patient.[facility] HospitalIn the event this information is protected by the Federal Confidentiality of Alcohol and Drug Abuse Patient Records regulations: The Federal rules restrict any use of the information to criminally investigate or prosecute any alcohol or drug abuse patient.[facility]In the event this information is protected by the Federal Confidentiality of Alcohol and Drug Abuse Patient Records regulations: The Federal rules restrict any use of the information to criminally investigate or prosecute any alcohol or drug abuse patient.[facility]In the event this information is protected by the Federal Confidentiality of Alcohol and Drug Abuse Patient Records regulations: The Federal rules restrict any use of the information to criminally investigate or prosecute any alcohol or drug abuse patient.[facility]In the event this information is protected by the Federal Confidentiality of Alcohol and Drug Abuse Patient Records regulations: The Federal rules restrict any use of the information to criminally investigate or prosecute any alcohol or drug abuse patient.[facility] HospitalIn the event this information is protected by the Federal Confidentiality of Alcohol and Drug Abuse Patient Records regulations: The Federal rules restrict any use of the information to criminally investigate or prosecute any alcohol or drug abuse patient.[facility] HospitalIn the event this information is protected by the Federal Confidentiality of Alcohol and Drug Abuse Patient Records regulations: The Federal rules restrict any use of the information to criminally investigate or prosecute any alcohol or drug abuse patient.[facility] HospitalIn the event this information is protected by the Federal Confidentiality of Alcohol and Drug Abuse Patient Records regulations: The Federal rules restrict any use of the information to criminally investigate or prosecute any alcohol or drug abuse patient.[facility] HospitalIn the event this information is protected by the Federal Confidentiality of Alcohol and Drug Abuse Patient Records regulations: The Federal rules restrict any use of the information to criminally investigate or prosecute any alcohol or drug abuse patient.[facility] HospitalIn the event this information is protected by the Federal Confidentiality of Alcohol and Drug Abuse Patient Records regulations: The Federal rules restrict any use of the information to criminally investigate or prosecute any alcohol or drug abuse patient.[facility] HospitalIn the event this information is protected by the Federal Confidentiality of Alcohol and Drug Abuse Patient Records regulations: The Federal rules restrict any use of the information to criminally investigate or prosecute any alcohol or drug abuse patient.[facility] HospitalIn the event this information is protected by the Federal Confidentiality of Alcohol and Drug Abuse Patient Records regulations: The Federal rules restrict any use of the information to criminally investigate or prosecute any alcohol or drug abuse patient.[facility] HospitalIn the event this information is protected by the Federal Confidentiality of Alcohol and Drug Abuse Patient Records regulations: The Federal rules restrict any use of the information to criminally investigate or prosecute any alcohol or drug abuse patient.[facility] HospitalIn the event this information is protected by the Federal Confidentiality of Alcohol and Drug Abuse Patient Records regulations: The Federal rules restrict any use of the information to criminally investigate or prosecute any alcohol or drug abuse patient.[facility] HospitalIn the event this information is protected by the Federal Confidentiality of Alcohol and Drug Abuse Patient Records regulations: The Federal rules restrict any use of the information to criminally investigate or prosecute any alcohol or drug abuse patient.[facility] HospitalIn the event this information is protected by the Federal Confidentiality of Alcohol and Drug Abuse Patient Records regulations: The Federal rules restrict any use of the information to criminally investigate or prosecute any alcohol or drug abuse patient.[facility] HospitalIn the event this information is protected by the Federal Confidentiality of Alcohol and Drug Abuse Patient Records regulations: The Federal rules restrict any use of the information to criminally investigate or prosecute any alcohol or drug abuse patient.[facility] HospitalIn the event this information is protected by the Federal Confidentiality of Alcohol and Drug Abuse Patient Records regulations: The Federal rules restrict any use of the information to criminally investigate or prosecute any alcohol or drug abuse patient.[facility] the event this information is protected by the Federal Confidentiality of Alcohol and Drug Abuse Patient Records regulations: The Federal rules restrict any use of the information to criminally investigate or prosecute any alcohol or drug abuse patient.[facility] HospitalIn the event this information is protected by the Federal Confidentiality of Alcohol and Drug Abuse Patient Records regulations: The Federal rules restrict any use of the information to criminally investigate or prosecute any alcohol or drug abuse patient.[facility] HospitalIn the event this information is protected by the Federal Confidentiality of Alcohol and Drug Abuse Patient Records regulations: The Federal rules restrict any use of the information to criminally investigate or prosecute any alcohol or drug abuse patient.[facility] HospitalIn the event this information is protected by the Federal Confidentiality of Alcohol and Drug Abuse Patient Records regulations: The Federal rules restrict any use of the information to criminally investigate or prosecute any alcohol or drug abuse patient.[facility] HospitalIn the event this information is protected by the Federal Confidentiality of Alcohol and Drug Abuse Patient Records regulations: The Federal rules restrict any use of the information to criminally investigate or prosecute any alcohol or drug abuse patient.[facility] HospitalIn the event this information is protected by the Federal Confidentiality of Alcohol and Drug Abuse Patient Records regulations: The Federal rules restrict any use of the information to criminally investigate or prosecute any alcohol or drug abuse patient.[facility] HospitalIn the event this information is protected by the Federal Confidentiality of Alcohol and Drug Abuse Patient Records regulations: The Federal rules restrict any use of the information to criminally investigate or prosecute any alcohol or drug abuse patient.[facility] HospitalIn the event this information is protected by the Federal Confidentiality of Alcohol and Drug Abuse Patient Records regulations: The Federal rules restrict any use of the information to criminally investigate or prosecute any alcohol or drug abuse patient.[facility] HospitalIn the event this information is protected by the Federal Confidentiality of Alcohol and Drug Abuse Patient Records regulations: The Federal rules restrict any use of the information to criminally investigate or prosecute any alcohol or drug abuse patient.[facility] HospitalIn the event this information is protected by the Federal Confidentiality of Alcohol and Drug Abuse Patient Records regulations: The Federal rules restrict any use of the information to criminally investigate or prosecute any alcohol or drug abuse patient.[facility] HospitalIn the event this information is protected by the Federal Confidentiality of Alcohol and Drug Abuse Patient Records regulations: The Federal rules restrict any use of the information to criminally investigate or prosecute any alcohol or drug abuse patient.[facility] HospitalIn the event this information is protected by the Federal Confidentiality of Alcohol and Drug Abuse Patient Records regulations: The Federal rules restrict any use of the information to criminally investigate or prosecute any alcohol or drug abuse patient.[facility] HospitalIn the event this information is protected by the Federal Confidentiality of Alcohol and Drug Abuse Patient Records regulations: The Federal rules restrict any use of the information to criminally investigate or prosecute any alcohol or drug abuse patient.[facility] HospitalIn the event this information is protected by the Federal Confidentiality of Alcohol and Drug Abuse Patient Records regulations: The Federal rules restrict any use of the information to criminally investigate or prosecute any alcohol or drug abuse patient.[facility] HospitalIn the event this information is protected by the Federal Confidentiality of Alcohol and Drug Abuse Patient Records regulations: The Federal rules restrict any use of the information to criminally investigate or prosecute any alcohol or drug abuse patient.[facility] HospitalIn the event this information is protected by the Federal Confidentiality of Alcohol and Drug Abuse Patient Records regulations: The Federal rules restrict any use of the information to criminally investigate or prosecute any alcohol or drug abuse patient.[facility] HospitalIn the event this information is protected by the Federal Confidentiality of Alcohol and Drug Abuse Patient Records regulations: The Federal rules restrict any use of the information to criminally investigate or prosecute any alcohol or drug abuse patient.[facility] HospitalIn the event this information is protected by the Federal Confidentiality of Alcohol and Drug Abuse Patient Records regulations: The Federal rules restrict any use of the information to criminally investigate or prosecute any alcohol or drug abuse patient.[facility] HospitalIn the event this information is protected by the Federal Confidentiality of Alcohol and Drug Abuse Patient Records regulations: The Federal rules restrict any use of the information to criminally investigate or prosecute any alcohol or drug abuse patient.[facility] HospitalIn the event this information is protected by the Federal Confidentiality of Alcohol and Drug Abuse Patient Records regulations: The Federal rules restrict any use of the information to criminally investigate or prosecute any alcohol or drug abuse patient.[facility] HospitalIn the event this information is protected by the Federal Confidentiality of Alcohol and Drug Abuse Patient Records regulations: The Federal rules restrict any use of the information to criminally investigate or prosecute any alcohol or drug abuse patient.[facility] HospitalIn the event this information is protected by the Federal Confidentiality of Alcohol and Drug Abuse Patient Records regulations: The Federal rules restrict any use of the information to criminally investigate or prosecute any alcohol or drug abuse patient.[facility] HospitalIn the event this information is protected by the Federal Confidentiality of Alcohol and Drug Abuse Patient Records regulations: The Federal rules restrict any use of the information to criminally investigate or prosecute any alcohol or drug abuse patient.[facility] HospitalIn the event this information is protected by the Federal Confidentiality of Alcohol and Drug Abuse Patient Records regulations: The Federal rules restrict any use of the information to criminally investigate or prosecute any alcohol or drug abuse patient.[facility] HospitalIn the event this information is protected by the Federal Confidentiality of Alcohol and Drug Abuse Patient Records regulations: The Federal rules restrict any use of the information to criminally investigate or prosecute any alcohol or drug abuse patient.[facility] HospitalIn the event this information is protected by the Federal Confidentiality of Alcohol and Drug Abuse Patient Records regulations: The Federal rules restrict any use of the information to criminally investigate or prosecute any alcohol or drug abuse patient.[facility] HospitalIn the event this information is protected by the Federal Confidentiality of Alcohol and Drug Abuse Patient Records regulations: The Federal rules restrict any use of the information to criminally investigate or prosecute any alcohol or drug abuse patient.[facility] HospitalIn the event this information is protected by the Federal Confidentiality of Alcohol and Drug Abuse Patient Records regulations: The Federal rules restrict any use of the information to criminally investigate or prosecute any alcohol or drug abuse patient.[facility] HospitalIn the event this information is protected by the Federal Confidentiality of Alcohol and Drug Abuse Patient Records regulations: The Federal rules restrict any use of the information to criminally investigate or prosecute any alcohol or drug abuse patient.[facility] HospitalIn the event this information is protected by the Federal Confidentiality of Alcohol and Drug Abuse Patient Records regulations: The Federal rules restrict any use of the information to criminally investigate or prosecute any alcohol or drug abuse patient.[facility] HospitalIn the event this information is protected by the Federal Confidentiality of Alcohol and Drug Abuse Patient Records regulations: The Federal rules restrict any use of the information to criminally investigate or prosecute any alcohol or drug abuse patient.[facility] HospitalIn the event this information is protected by the Federal Confidentiality of Alcohol and Drug Abuse Patient Records regulations: The Federal rules restrict any use of the information to criminally investigate or prosecute any alcohol or drug abuse patient.[facility] HospitalIn the event this information is protected by the Federal Confidentiality of Alcohol and Drug Abuse Patient Records regulations: The Federal rules restrict any use of the information to criminally investigate or prosecute any alcohol or drug abuse patient.[facility] HospitalIn the event this information is protected by the Federal Confidentiality of Alcohol and Drug Abuse Patient Records regulations: The Federal rules restrict any use of the information to criminally investigate or prosecute any alcohol or drug abuse patient.[facility] HospitalIn the event this information is protected by the Federal Confidentiality of Alcohol and Drug Abuse Patient Records regulations: The Federal rules restrict any use of the information to criminally investigate or prosecute any alcohol or drug abuse patient.[facility] HospitalIn the event this information is protected by the Federal Confidentiality of Alcohol and Drug Abuse Patient Records regulations: The Federal rules restrict any use of the information to criminally investigate or prosecute any alcohol or drug abuse patient.[facility] HospitalIn the event this information is protected by the Federal Confidentiality of Alcohol and Drug Abuse Patient Records regulations: The Federal rules restrict any use of the information to criminally investigate or prosecute any alcohol or drug abuse patient.[facility] HospitalIn the event this information is protected by the Federal Confidentiality of Alcohol and Drug Abuse Patient Records regulations: The Federal rules restrict any use of the information to criminally investigate or prosecute any alcohol or drug abuse patient.[facility] HospitalIn the event this information is protected by the Federal Confidentiality of Alcohol and Drug Abuse Patient Records regulations: The Federal rules restrict any use of the information to criminally investigate or prosecute any alcohol or drug abuse patient.[facility] HospitalIn the event this information is protected by the Federal Confidentiality of Alcohol and Drug Abuse Patient Records regulations: The Federal rules restrict any use of the information to criminally investigate or prosecute any alcohol or drug abuse patient.[facility] HospitalIn the event this information is protected by the Federal Confidentiality of Alcohol and Drug Abuse Patient Records regulations: The Federal rules restrict any use of the information to criminally investigate or prosecute any alcohol or drug abuse patient.[facility] HospitalIn the event this information is protected by the Federal Confidentiality of Alcohol and Drug Abuse Patient Records regulations: The Federal rules restrict any use of the information to criminally investigate or prosecute any alcohol or drug abuse patient.[facility] HospitalIn the event this information is protected by the Federal Confidentiality of Alcohol and Drug Abuse Patient Records regulations: The Federal rules restrict any use of the information to criminally investigate or prosecute any alcohol or drug abuse patient.[facility] HospitalIn the event this information is protected by the Federal Confidentiality of Alcohol and Drug Abuse Patient Records regulations: The Federal rules restrict any use of the information to criminally investigate or prosecute any alcohol or drug abuse patient.[facility] HospitalIn the event this information is protected by the Federal Confidentiality of Alcohol and Drug Abuse Patient Records regulations: The Federal rules restrict any use of the information to criminally investigate or prosecute any alcohol or drug abuse patient.[facility] HospitalIn the event this information is protected by the Federal Confidentiality of Alcohol and Drug Abuse Patient Records regulations: The Federal rules restrict any use of the information to criminally investigate or prosecute any alcohol or drug abuse patient.[facility] HospitalIn the event this information is protected by the Federal Confidentiality of Alcohol and Drug Abuse Patient Records regulations: The Federal rules restrict any use of the information to criminally investigate or prosecute any alcohol or drug abuse patient.[facility] HospitalIn the event this information is protected by the Federal Confidentiality of Alcohol and Drug Abuse Patient Records regulations: The Federal rules restrict any use of the information to criminally investigate or prosecute any alcohol or drug abuse patient.[facility] Care Teams (unrecognized sec tion and content) Team Status: Active Member Role Status Dates Dionne Chambers DO Primary Care Provider Active Team Status: Inactive Member Role Status Dates Dionne Chambers DO Primary Care Provider, Attending Provi jose l Active [employer] Relationship Specialty Start Date End Date Dionne Chambers, DO [address] [place] [address] PCP - General Family Practice 01/15/22 Hermilo Travis Jr., DO [address] [address] Referring Orthopedics 01/05/22 [employer] Relationship Specialty Start Date End Date Dionne Chambers, DO [address] [place] [address] PCP - General Family Practice 01/15/22 Hermilo Travis Jr., DO [address] [facility] [address] [place] [address] Referring Orthopedics 01/05/22 [employer] Relationship Specialty Start Date End Date Dionne Chambers, DO [address] [place] [address] PCP - General Family Medicine 01/15/22 Hermilo Travis Jr., DO [address] [facility] [address] [place] [address] Referring Orthopedics 01/05/22 Team Status: Inactive Member Role Status Dates Dionne Chambers DO Primary Care Provider Active Dillan Craft MD Attending Provider Active [employer] Relationship Specialty Start Date End Date Dionne Chambers, DO [address] [place] [address] PCP - General Family Medicine 01/15/22 Hermilo Travis Jr., DO [address] [facility] [address] [place] [address] Referring Orthopedics 01/05/22 [employer] Relationship Specialty Start Date End Date Dionne Chambers, DO [address] [place] [address] PCP - General Family Medicine 01/15/22 Hermilo Travis Jr., DO [address] [facility] [address] [place] [address] Referring Orthopedics 01/05/22 [employer] Relationship Specialty Start Date End Date Dionne Chambers, DO 101 [place] [address] PCP - General Family Medicine 01/15/22 Hermilo Travis Jr., DO [address] [facility] [address] [place] [address] Referring Orthopedics 01/05/22 [employer] Relationship Specialty Start Date End Date Dionne Chambers, DO [address] [place] [address] PCP - General Family Medicine 01/15/22 Hermilo Travis Jr., DO [address] [facility] [address] [place] [address] Referring Orthopedics 01/05/22 [employer] Relationship Specialty Start Date End Date Dionne Chambers, DO 101 [place] [address] PCP - General Family Medicine 01/15/22 Hermilo Travis Jr., DO [address] [facility] [address] [place] [address] Referring Orthopedics 01/05/22 [employer] Relationship Specialty Start Date End Date Dionne Chambers, DO [address] [place] [address] PCP - General Family Medicine 01/15/22 Hermilo Travis Jr., DO [address] [facility] [address] [place] [address] Referring Orthopedics 01/05/22 [employer] Relationship Specialty Start Date End Date Dionne Chambers, DO [address] [place] [address] PCP - General Family Medicine 01/15/22 Hermilo Travis Jr., DO [address] [facility] [address] [place] [address] Referring Orthopedics 01/05/22 [employer] Relationship Specialty Start Date End Date GonsaloDionne valeroi, DO [address] [place] [address] PCP - General Family Medicine 01/15/22 Hermilo Travis Jr., DO [address] [facility] [address] [place] [address] Referring Orthopedics 01/05/22 Team Status: Active Member Role Status Dates Dionne Chambers , DO Primary Care Provider, Attending Provi jose l Active Team Status: Active Member Role Status Dates Dionne Chambers , DO Primary Care Provider Active Dillan Craft MD Attending Provider Active Team Status: Inactive Member Role Status Dates Dionne Chambers , Primary Care Provider Active Alvino Roger PA-C Attending Provider Active Team Status: Inactive Member Role Status Dates Dionne Chambers , Primary Care Provider Active Aixa Sánchez Attending Provider Active [employer] Relationship Specialty Start Date End Date Dionne Chambers, DO [address] [place] [address] PCP - General Family Medicine 01/15/22 Hermilo Travis Jr., DO [address] [facility] [address] [place] [address] Referring Orthopedics 01/05/22 [employer] Relationship Specialty Start Date End Date Dionne Chambers, DO [address] [place] [address] PCP - General Family Medicine 01/15/22 Hermilo Travis Jr., DO [address] [facility] [address] [place] [address] Referring Orthopedics 01/05/22 [employer] Relationship Specialty Start Date End Date Dionne Chambers, DO [address] [place] [address] PCP - General Family Medicine 01/15/22 Hermilo Travis Jr., DO [address] [facility] [address] [place] [address] Referring Orthopedics 01/05/22 [employer] Relationship Specialty Start Date End Date Dionne Chambers, DO [address] [place] [address] PCP - General Family Medicine 01/15/22 Hermilo Travis Jr., DO [address] [facility] [address] [place] [address] Referring Orthopedics 01/05/22 [employer] Relationship Specialty Start Date End Date Dionne Chambers, DO [address] [place] [address] PCP - General Family Medicine 01/15/22 Hermilo Travis Jr., DO [address] [facility] [address] [place] [address] Referring Orthopedics 01/05/22 [employer] Relationship Specialty Start Date End Date Dionne Chambers, [address] [place] [phone] PCP - General Family Medicine 01/15/22 Hermilo Travis Jr., DO [address] [facility] [address] [place] [address] Referring Orthopedics 01/05/22 [employer] Relationship Specialty Start Date End Date Dionne Chambers, [address] [place] [phone] PCP - General Family Medicine 01/15/22 Hermilo Travis Jr., DO [address] [place] [address] Referring Orthopedics 01/05/22 Team Status: Inactive Member Role Status Dates Dionne Chambers , Primary Care Provider Active Hermilo Travis Jr, DO Attending Provider Active [employer] Relationship Specialty Start Date End Date Dionne Chambers, [address] [place] [address] PCP - General Family Medicine 01/15/22 Hermilo Travis Jr., DO [address] [facility] 150 [place] [address] Referring Orthopedics 01/05/22 [employer] Relationship Specialty Start Date End Date Dionne Chambers, DO [address] [place] [address] PCP - General Family Medicine 01/15/22 Hermilo Travis Jr., DO [address] [facility] [address] [place] [address] Referring Orthopedics 01/05/22 [employer] Relationship Specialty Start Date End Date Dionne Chambers DO [address] [place] [address] PCP - General Family Medicine 01/15/22 Hermilo Travis Jr., DO [address] [place] [address] Referring Orthopedics 01/05/22 [employer] Relationship Specialty Start Date End Date Dionne Chambers DO [address] [place] [address] PCP - General Family Medicine 01/15/22 Hermilo Travis Jr., DO 112 [facility] [address] [place] [address] Referring Orthopedics 01/05/22 [employer] Relationship Specialty Start Date End Date Dionne Chambers DO [address] [place] [address] PCP - General Family Medicine 01/15/22 Hermilo Travis Jr., DO 112 [facility] [address] [place] [address] Referring Orthopedics 01/05/22 [employer] Relationship Specialty Start Date End Date Dionne Chambers DO [address] [place] [address] PCP - General Family Medicine 01/15/22 Hermilo Travis Jr., DO 112 [facility] [address] [place] [address] Referring Orthopedics 01/05/22 Team Status: Inactive Member Role Status Dates Dionne Chambers DO Primary Care Provide r, Attending Provider Active Start: October 12, 2023 End: October 12, 2023 Team Status: Inactive Member Role Status Dates Dionne Chambers DO Primary Care Provide r, Attending Provider Active Start: December 19, 2023 End: December 19, 2023 [employer] Relationship Specialty Start Date End Date Dionne Chambers DO [address] [place] [address] PCP - General Family Medicine 01/15/22 Hermilo Travis Jr., DO 112 [facility] [address] [place] [address] Referring Orthopedics 01/05/22 [employer] Relationship Specialty Start Date End Date Dionne Chambers DO [address] [place] [address] PCP - General Family Medicine 01/15/22 Hermilo Travis Jr., DO 112 [facility] [address] [place] [address] Referring Orthopedics 01/05/22 [employer] Relationship Specialty Start Date End Date Dionne Chambers DO [address] [place] [address] PCP - General Family Medicine 01/15/22 Hermilo Travis Jr., DO 112 [facility] [address] [place] [address] Referring Orthopedics 01/05/22 Team Status: Inactive Member Role Status Dates Dionne Chambers DO Primary Care Provider Active Sta rt: January 03, 2024 End: January 03, 2024 Sylvia Colbert MD Attending Provider Active Start: January 03, 2024 End: January 03, 2024 [employer] Relationship Specialty Start Date End Date Dionne Chambers DO [address] [place] [address] PCP - General Family Medicine 01/15/22 Hermilo Travis Jr., DO 112 [facility] [address] [place] [address] Referring Orthopedics 01/05/22 [employer] Relationship Specialty Start Date End Date Dionne Chambers, [facility] [place] [address] PCP - General Family Medicine 01/15/22 Hermilo Travis Jr., DO [address] [place] [address] 150 [place] [address] Referring Orthopedics 01/05/22 [employer] Relationship Specialty Start Date End Date Dionne Chambers DO [facility] [place] [address] PCP - General Family Medicine 01/15/22 Hermilo Travis Jr., DO [address] [place] [address] 150 [place] [address] Referring Orthopedics 01/05/22 [employer] Relationship Specialty Start Date End Date Dionne Chambers DO [facility] [place] [address] PCP - General Family Medicine 01/15/22 Hermilo Travis Jr., DO [address] [place] [address] 150 [place] [address] Referring Orthopedics 01/05/22 [employer] Relationship Specialty Start Date End Date Dionne Chambers MD [facility] [place] [address] PCP - General 07/27/23 [employer] Relationship Specialty Start Date End Date Dionne Chambers MD [address] [place] [address] PCP - General 07/27/23 [employer] Relationship Specialty Start Date End Date Dionne Chambers MD [address] [place] [facility] [place] [address] PCP - General 07/27/23 [employer] Relationship Specialty Start Date End Date Dionne Chambers MD [facility] [place] [facility] [place] [address] PCP - General 07/27/23 [employer] Relationship Specialty Start Date End Date Dionne Chambers MD [address] [place] [address], [place] [address] PCP - General 07/27/23 [employer] Relationship Specialty Start Date End Date Dionne Chambers DO [facility] S [facility], [place] [id number] PCP - General Family Medicine 01/15/22 Hermilo Travis Jr., DO [address] [place] [address] [address] [place] [address] Referring Orthopedics 01/05/22 [employer] Relationship Specialty Start Date End Date Dionne Chambers DO [facility] [place] [facility] [place] [address] PCP - General Family Medicine 01/15/22 Hermilo Travis Jr., DO 112 [facility] [address] [place] [address] Referring Orthopedics 01/05/22 [employer] Relationship Specialty Start Date End Date Dionne Chambers DO [address] [place] [address] PCP - General Family Medicine 01/15/22 Hermilo Travis Jr., DO 112 [facility] [address] [place] [address] Referring Orthopedics 01/05/22 [employer] Relationship Specialty Start Date End Date Dionne Chambers, DO [address] [place] [address] PCP - General Family Medicine 01/15/22 Hermilo Travis Jr., DO [address] [place] [address] [address] [place] [address] Referring Orthopedics 01/05/22 [employer] Relationship Specialty Start Date End Date Dionne Chambers, DO [address] [place] [address] PCP - General Family Medicine 01/15/22 Hermilo Travis Jr., DO [address] [place] [address] [address] [place] [address] Referring Orthopedics 01/05/22 [employer] Relationship Specialty Start Date End Date Dionne Chambers MD [address] [place] [phone] PCP - General 07/27/23 [employer] Relationship Specialty Start Date End Date Dionne Chambers MD [address] [place] [phone] PCP - General 07/27/23 [employer] Relationship Specialty Start Date End Date Dionne Chambers MD PCP - General 07/27/23 [employer] Relationship Specialty Start Date End Date Dionne Chambers DO PCP - General 07/27/23 [employer] Relationship Specialty Start Date End Date Dinone Chambers DO PCP - General 07/27/23 [employer] Relationship Specialty Start Date End Date Dionne Chambers DO [address] [place] [address] PCP - General Family Medicine 01/15/22 Hermilo Travis Jr., DO [address] [place] [address] [address] [place] [address] Referring Orthopedics 01/05/22 [employer] Relationship Specialty Start Date End Date Dionne Chambers DO [address] [place] [address] PCP - General Family Medicine 01/15/22 Hermilo Travis Jr., DO [address] [place] [address] [address] [place] [address] Referring Orthopedics 01/05/22 [employer] Relationship Specialty Start Date End Date Dionne Chambers DO [address] [place] [address] PCP - General Family Medicine 01/15/22 Hermilo Travis Jr., DO 112 [facility] [address] [place] [address] Referring Orthopedics 01/05/22 Team Status: Inactive Member Role Status Dates Dionne Chambers DO Primary Care Provide r, Attending Provider Active Start: December 07, 2024 End: December 07, 2024 [employer] Relationship Specialty Start Date End Date Dionne Chambers DO PCP - General 07/27/23 Team Status: Inactive Member Role Status Dates Odette Escobedo PA-C Attending Provider Active Sta rt: December 07, 2024 End: December 07, 2024 [employer] Relationship Specialty Start Date End Date Dionne Chambers DO PCP - General 07/27/23 [employer] Relationship Specialty Start Date End Date Dionne Chambers DO PCP - General 07/27/23 [employer] Relationship Specialty Start Date End Date Dionne Chambers DO [address] [place] [address] PCP - General Family Medicine 01/15/22 Hermilo Travis Jr., DO [address] [facility] [address] [place] [address] Referring Orthopedics 01/05/22 [employer] Relationship Specialty Start Date End Date Dionne Chambers DO [address] [place] [address] PCP - General Family Medicine 01/15/22 Hermilo Travis Jr., DO [address] [place] [address] Referring Orthopedics 01/05/22 Team Status: Inactive Member Role Status Dates Dionne Chambers DO Primary Care Provide r, Attending Provider Active Start: December 17, 2024 End: December 17, 2024 [employer] Relationship Specialty Start Date End Date Dionne Chambers DO [address] [place] [address] PCP - General Family Medicine 01/15/22 Hermilo Travis Jr., DO 112 [facility] [address] [place] [address] Referring Orthopedics 01/05/22 [employer] Relationship Specialty Start Date End Date Dionne Chambers DO [facility] [place] [address] PCP - General Family Medicine 01/15/22 Hermilo Travis Jr., DO [address] [place] [address] [address] [place] [address] Referring Orthopedics 01/05/22 Team Status: Inactive Member Role Status Dates Dionne Chambers DO Primary Care Provide r, Attending Provider Active Start: January 07, 2025 End: January 07, 2025 Team Status: Active Member Role Status Dates PCP No Primary Care Provider Active Team Status: Inactive Member Role Status Dates PCP No Primary Care Provider Active Start: January 09, 2025 End: January 09, 2025 Patsy Olmstead NP Attending Provider Active Sta rt: January 09, 2025 End: January 09, 2025 [employer] Relationship Specialty Start Date End Date Dionne Chambers DO PCP - General 07/27/23 [employer] Relationship Specialty Start Date End Date Dionne Chambers DO PCP - General 07/27/23 [employer] Relationship Specialty Start Date End Date Dionne Chambers DO PCP - General 07/27/23 [employer] Relationship Specialty Start Date End Date Dionne Chambers DO PCP - General 07/27/23 [employer] Relationship Specialty Start Date End Date Dionne Chambers DO PCP - General 07/27/23 [employer] Relationship Specialty Start Date End Date Dionne Chambers DO [address] [place] [address] PCP - General Family Medicine 01/15/22 Hermilo Travis Jr., DO [address] [place] [address] [address] [place] [address] Referring Orthopedics 01/05/22 [employer] Relationship Specialty Start Date End Date Dionne Chambers DO PCP - General 07/27/23 [employer] Relationship Specialty Start Date End Date Dionne Chambers DO PCP - General 07/27/23 [employer] Relationship Specialty Start Date End Date Dionne Chambers DO PCP - General 07/27/23 Team Status: Inactive Member Role Status Dates Dionne Chambers DO Primary Care Provider Active Sta rt: December 07, 2024 End: December 07, 2024 Dionne Chambers DO Attending Provider Active Start: December 07, 2024 End: December 07, 2024 Team Status: Inactive Member Role Status Dates Dionne Chambers DO Primary Care Provider Active Sta rt: December 17, 2024 End: December 17, 2024 Dionne Chambers DO Attending Provider Active Start: December 17, 2024 End: December 17, 2024 Team Status: Inactive Member Role Status Dates Dionne Chambers DO Primary Care Provider Active Sta rt: January 07, 2025 End: January 07, 2025 Dionne Chambers DO Attending Provider Active Start: January 07, 2025 End: January 07, 2025 Team Status: Inactive Member Role Status Dates Dionne Chambers DO Primary Care Provider Active Sta rt: February 11, 2025 End: February 11, 2025 Charu Martínez MD Attending Provider Active Start: February 11, 2025 End: February 11, 2025 [employer] Relationship Specialty Start Date End Date Dionne Chambers DO [address] [place] [address] PCP - General Family Medicine 01/15/22 Hermilo Travis Jr., DO [address] [place] [address] [address] [place] [address] Referring Orthopedics 01/05/22 Team Status: Inactive Member Role Status Dates Dionne Chambers DO Primary Care Provider Active Sta rt: February 18, 2025 End: February 18, 2025 Dionne Chambers DO Attending Provider Active Start: February 18, 2025 End: February 18, 2025 Team Status: Active Member Role Status Dates Dionne Chambers DO Primary Care Provider Active Sta rt: February 18, 2025 Dionne Chambers DO Attending Provider Active Start: February 18, 2025 [employer] Relationship Specialty Start Date End Date Dionne Chambers DO [address] [place] [address] PCP - General Family Medicine 01/15/22 Hermilo Travis Jr., DO 112 [facility] [address] [place] [address] Referring Orthopedics 01/05/22 [employer] Relationship Specialty Start Date End Date Dionne Chambers, DO [address] [place] [address] PCP - General Family Medicine 01/15/22 Hermilo Travis Jr., DO [address] [place] [address] Referring Orthopedics 01/05/22 [employer] Relationship Specialty Start Date End Date Dionne Chambers, DO [address] [place] [address] PCP - General Family Medicine 01/15/22 Hermilo Travis Jr., DO [address] [facility] [address] [place] [address] Referring Orthopedics 01/05/22 [employer] Relationship Specialty Start Date End Date Dionne Chambers, DO [facility] [place] [address] PCP - General Family Medicine 01/15/22 Hermilo Travis Jr., DO [address] [facility] [address] [place] [address] Referring Orthopedics 01/05/22 [employer] Fe[employer] Relationship Specialty Start Date End Date Dionne Chambers, DO [facility] [place] [address] PCP - General Family Medicine 01/15/22 Hermilo Travis Jr., DO [address] [place] [address] Referring Orthopedics 01/05/22 [employer] Relationship Specialty Start Date End Date Dionne Chambers DO [address] [place] [address] PCP - General Family Medicine 01/15/22 Hermilo Travis , DO 112 [facility] [address] [place] [address] Referring Orthopedics 01/05/22 Team Status: Active Member Role Status Dates Dionne Chambers DO Primary Care Provider Active Sta rt: May 06, 2025 Valerie Kern LPN Attending Provider Active Sta rt: May 06, 2025 Team Status: Inactive Member Role Status Dates Dionne Chambers DO Primary Care Provider Active Sta rt: May 07, 2025 End: May 07, 2025 Dionne Chambers DO Attending Provider Active Start: May 07, 2025 End: May 07, 2025 Team Status: Active Member Role Status Dates Dionne Chambers DO Primary Care Provider Active Sta rt: May 07, 2025 Dionne Chambers DO Attending Provider Active Start: May 07, 2025 Team Status: Inactive Member Role Status Dates Dionne Chambers DO Primary Care Provider Active Sta rt: May 13, 2025 End: May 13, 2025 Dionne Chambers DO Attending Provider Active Start: May 13, 2025 End: May 13, 2025 Goals (unrecognized section and content) Goals may be documented in a n alternate section FOR RECORDS PERTAINING TO PATIENTS WHO ARE OR HAVE BEEN ENROLLED IN A CHEMICAL DEPENDENCY/SUBSTANCEABUSE PROGRAM, SOME INFORMATION MAY BE OMITTED. This clinical summary was aggregated from multiple sources. Caution should be exercised in using it in the provision of clinical care. This summary normalizes information from multiple sources, and as a consequence, information in this document may materially change the coding, format and clinical context of patient data. In addition, data may be omitted in some cases. CLINICAL DECISIONS SHOULD BE BASED ON THE PRIMARY CLINICAL RECORDS. [facility]. provides no warranty or guarantee of the accuracy or completeness of information in this document.
== END 2025-05-15 13:56 | disposition home or self-care (01) ==
LOC: CARD 13:56
PROVIDERS: PCP Family Medicine
DX: G40.309 Generalized idiopathic epilepsy and epileptic syndromes, not intractable, without status epilepticus (principal)
CPT/HCPCS: 93005